=== PATIENT | female | born 1940 | race Caucasian/White ===

== ENCOUNTER 2019-02-01 09:21 | Day surgery (SDC) | payer MEDICARE ==
[2019-01-31 11:29] VITALS: BMI 35.2
[2019-02-01 09:55] VITALS: BP 185/86; PULSE 77; RESP 18; TEMP 97.9
== END 2019-02-01 10:24 | disposition home or self-care (01) ==
LOC: CATHCVL 09:21
PROVIDERS: ATTEND Internal Medicine Infectious Disease
DX: L03.116 Cellulitis of left lower limb (principal); L03.115 Cellulitis of right lower limb; E11.22 Type 2 diabetes mellitus with diabetic chronic kidney disease; I12.9 Hypertensive chronic kidney disease with stage 1 through stage 4 chronic kidney disease, or unspecified chronic kidney disease; N18.9 Chronic kidney disease, unspecified; D63.1 Anemia in chronic kidney disease; E78.5 Hyperlipidemia, unspecified; M19.90 Unspecified osteoarthritis, unspecified site; Z82.49 Family history of ischemic heart disease and other diseases of the circulatory system; Z80.9 Family history of malignant neoplasm, unspecified; Z79.84 Long term (current) use of oral hypoglycemic drugs; Z79.82 Long term (current) use of aspirin; Z79.899 Other long term (current) drug therapy; Z88.0 Allergy status to penicillin; Z91.040 Latex allergy status
CPT/HCPCS: 36410; 76937; C1751

== ENCOUNTER 2021-08-27 20:14 | Emergency (ER) | payer MEDICARE ==
[2021-08-27 20:22] VITALS: TEMP 98.1
[2021-08-27] MEDS ORDERED: FUROSEMIDE 10 MG/ML 4 ML VIAL IV STA (20:27)
--- NOTE | 2021-08-27 20:30 | ED ---
Extremity Problem HPI - General Chief complaint: Extremity Problem,Nontraumatic Stated complaint: Cellulitis Time Seen by Provider: 08/27/21 20:16 Source: EMS, RN notes reviewed Mode of arrival: EMS - History of Present Illness Initial comments: This is a pleasant 81-year-old female with a history of chronic edema to both lower extremities, also has a history of hypertension, hyperlipidemia, and diabetes mellitus type 2. Patient was sent in for cellulitis of both lower legs by her home nurse. She states she has in her succumbs and change his dressings. They were concerned that the left leg had increased drainage. Patient states she feels well otherwise. Patient previously has seen Dr. Choe for vascular surgical evaluation was told that her blood vessels are good. Patient denying any fever or chills. No chest pain or shortness of breath. No abdominal pain. No nausea or vomiting. No change in bowel movements or urination. No other skin rashes or lesions. - Related Data Home Medications Medication Instructions Recorded Confirmed Aspirin [Adult Low Dose Aspirin EC] 81 mg PO DAILY 01/31/19 08/27/21 Glimepiride [Amaryl] 1 mg PO DAILY 01/31/19 08/27/21 Torsemide [Demadex] 40 mg PO DAILY 01/31/19 08/27/21 amLODIPine [Norvasc] 5 mg PO DAILY 01/31/19 08/27/21 hydrALAZINE HCL [Apresoline] 25 mg PO TID 01/31/19 08/27/21 Atorvastatin [Lipitor] 20 mg PO HS 08/27/21 08/27/21 Multivitamins, Thera [Multivitamin 1 tab PO DAILY 08/27/21 08/27/21 (formulary)] polyethylene glycoL 3350 [Miralax] 17 gm PO DAILY PRN 08/27/21 08/27/21 Previous Rx's Medication Instructions Recorded Cephalexin [Keflex] 500 mg PO Q6HR #40 cap 08/28/21 Allergies Allergy/AdvReac Type Severity Reaction Status Date / Time latex Allergy Rash/red Verified 08/27/21 22:24 skin Penicillins Allergy Rash/Hives Verified 08/27/21 22:24 Review of Systems ROS Statement: Those systems with pertinent positive or pertinent negative responses have been documented in the HPI. ROS Other: All systems not noted in ROS Statement are negative. 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 Date of last positivie culture/infection: 2013 MDRO Source:: left leg Past Surgical History: Appendectomy, Section, Cholecystectomy, Heart Catheterization, Hysterectomy Additional Past Surgical History / Comment(s): pericardial window, surgery mir eyes for glaucoma Past Anesthesia/Blood Transfusion Reactions: Blood Transfusion Reaction Additional Past Anesthesia/Blood Transfusion Reaction / Comment(s): reaction to blood transfusion 25-30 yrs ago-"I got red and they pulled it out" Past Psychological History: No Psychological Hx Reported Smoking Status: Former smoker Past Alcohol Use History: None Reported Past Drug Use History: None Reported - Past Family History Father Family Medical History: Cancer Brother(s) Family Medical History: Cancer General Exam - General Exam Comments Initial Comments: Elderly female in no acute distress. Patient does not appear to be ill or toxic. General appearance: alert, in no apparent distress Head exam: Present: atraumatic, normocephalic, normal inspection Eye exam: Present: normal appearance, PERRL, EOMI. Absent: scleral icterus, conjunctival injection, periorbital swelling ENT exam: Present: normal exam, mucous membranes moist Neck exam: Present: normal inspection. Absent: tenderness, meningismus, ly mphadenopathy Respiratory exam: Present: normal lung sounds bilaterally. Absent: respiratory distress, wheezes, rales, rhonchi, stridor Cardiovascular Exam: Present: regular rate, normal rhythm, normal heart sounds. Absent: systolic murmur, diastolic murmur, rubs, gallop, clicks GI/Abdominal exam: Present: soft, normal bowel sounds. Absent: distended, tenderness, guarding, rebound, rigid Extremities exam: Present: full ROM, normal capillary refill, pedal edema, other (Patient has chronic appearing hypertrophic, mildly erythematous skin changes to both lower extremities which appears to be chronic in nature. Patient does have serous weeping from the left lower leg. No definitive acute cellulitis although the patient does have some erythema. ). Absent: normal inspection (Pulses are intact. Sensation intact. Evidence of venous stasis ulceration medial malleoli.), tenderness, joint swelling, calf tenderness Back exam: Present: normal inspection Neurological exam: Present: alert, oriented X3, CN II-XII intact Psychiatric exam: Present: normal affect, normal mood Skin exam: Present: warm, dry, intact, normal color. Absent: rash Course Vital Signs 08/27/21 08/27/21 08/27/21 20:16 21:26 22:58 Temperature 98.1 F Pulse Rate 80 71 79 Respiratory 18 16 18 Rate Blood Pressure 136/77 125/70 136/76 O2 Sat by Pulse 100 95 100 Oximetry 08/27/21 23:57 Temperature Pulse Rate 76 Respiratory 18 Rate Blood Pressure 137/77 O2 Sat by Pulse 96 Oximetry Medical Decision Making - Medical Decision Making Patient presents with chronic-appearing wounds and skin changes to both her studies. Consistent with venous stasis dermatitis. Patient had some more weeping from the left lower leg. Venous Doppler showed no evidence of DVT. Patient's laboratory workup was essentially normal. I believe the patient psychologically mostly related to venous stasis dermatitis. We'll cover with cephalexin and have patient follow-up on Monday. Leg elevation, continue with daily dressings. Return to follow-up with discussed in detail. Patient knows to return here if any symptoms worsen and problems arise. Findings discussed, all questions answered. Wound was cultured. - Lab Data Result diagrams: 08/27/21 21:15 08/27/21 21:15 Lab Results 08/27/21 08/27/21 08/27/21 Range/Units 21:15 21:15 21:15 WBC 7.1 (3.8-10.6) k/uL RBC 4.55 (3.80-5.40) m/uL Hgb 13.1 (11.4-16.0) gm/dL Hct 42.4 (34.0-46.0) % MCV 93.3 (80.0-100.0) fL MCH 28.8 (25.0-35.0) pg MCHC 30.9 L (31.0-37.0) g/dL RDW 16.1 H (11.5-15.5) % Plt Count 240 (150-450) k/uL MPV 7.6 Neutrophils % 64 % Lymphocytes % 18 % Monocytes % 8 % Eosinophils % 7 % Basophils % 1 % Neutrophils # 4.5 (1.3-7.7) k/uL Lymphocytes # 1.3 (1.0-4.8) k/uL Monocytes # 0.6 (0-1.0) k/uL Eosinophils # 0.5 (0-0.7) k/uL Basophils # 0.0 (0-0.2) k/uL Hypochromasia Slight Anisocytosis Slight Sodium 141 (137-145) mmol/L Potassium 4.9 (3.5-5.1) mmol/L Chloride 105 (98-107) mmol/L Carbon Dioxide 28 (22-30) mmol/L Anion Gap 8 mmol/L BUN 46 H (7-17) mg/dL Creatinine 1.54 H (0.52-1.04) mg/dL Est GFR (CKD-EPI)AfAm 36 (>60 ml/min/1.73 sqM) Est GFR (CKD-EPI)NonAf 31 (>60 ml/min/1.73 sqM) Glucose 93 (74-99) mg/dL POC Glucose (mg/dL) (75-99) mg/dL POC Glu Shoe Salesperson ID Calcium 8.7 (8.4-10.2) mg/dL Total Bilirubin 0.4 (0.2-1.3) mg/dL AST 23 (14-36) U/L ALT 14 (4-34) U/L Alkaline Phosphatase 146 H (38-126) U/L Troponin I <0.012 (0.000-0.034) ng/mL NT-Pro-B Natriuret Pep pg/mL Total Protein 7.5 (6.3-8.2) g/dL Albumin 3.9 (3.5-5.0) g/dL 08/27/21 08/27/21 Range/Units 21:15 22:35 WBC (3.8-10.6) k/uL RBC (3.80-5.40) m/uL Hgb (11.4-16.0) gm/dL Hct (34.0-46.0) % MCV (80.0-100.0) fL MCH (25.0-35.0) pg MCHC (31.0-37.0) g/dL RDW (11.5-15.5) % Plt Count (150-450) k/uL MPV Neutrophils % % Lymphocytes % % Monocytes % % Eosinophils % % Basophils % % Neutrophils # (1.3-7.7) k/uL Lymphocytes # (1.0-4.8) k/uL Monocytes # (0-1.0) k/uL Eosinophils # (0-0.7) k/uL Basophils # (0-0.2) k/uL Hypochromasia Anisocytosis Sodium (137-145) mmol/L Potassium (3.5-5.1) mmol/L Chloride (98-107) mmol/L Carbon Dioxide (22-30) mmol/L Anion Gap mmol/L BUN (7-17) mg/dL Creatinine (0.52-1.04) mg/dL Est GFR (CKD-EPI)AfAm (>60 ml/min/1.73 sqM) Est GFR (CKD-EPI)NonAf (>60 ml/min/1.73 sqM) Glucose (74-99) mg/dL POC Glucose (mg/dL) 85 (75-99) mg/dL POC Glu Shoe Salesperson ID Kimani Martinez Calcium (8.4-10.2) mg/dL Total Bilirubin (0.2-1.3) mg/dL AST (14-36) U/L ALT (4-34) U/L Alkaline Phosphatase (38-126) U/L Troponin I (0.000-0.034) ng/mL NT-Pro-B Natriuret Pep 601 pg/mL Total Protein (6.3-8.2) g/dL Albumin (3.5-5.0) g/dL - Radiology Data Radiology results: report reviewed, image reviewed No evidence of acute changes on imaging Disposition Clinical Impression: Venous stasis dermatitis, Cellulitis, leg Disposition: HOME SELF-CARE Condition: Stable Additional Instructions: Elevate the legs as much as possible. Continue wound care with your in-home nurse. To follow-up with the retirement administrator as well. Follow-up with your regular doctor, call first thing Monday morning. Take antibiotics as directed. Follow-up with your regular physician as directed. Return to the ER immediately if any symptoms worsen, new symptoms arise, or any other problems develop. Prescriptions: Cephalexin [Keflex] 500 mg PO Q6HR #40 cap Is patient prescribed a controlled substance at d/c from ED?: No Referrals: Alexx Olmstead MD [Primary Care Provider] - 08/30/21 Time of Disposition: 00:07
--- NOTE | 2021-08-27 21:31 | XR ---
EXAMINATION TYPE: XR chest 1V DATE OF EXAM: 08/27/2021 COMPARISON: NONE HISTORY: Edema TECHNIQUE: Single view FINDINGS: There is no heart failure nor confluent pneumonic infiltrate. Costophrenic angles are clear . There are no hilar masses. IMPRESSION: No active cardiopulmonary disease. Normal heart.
[2021-08-27 22:08] LABS: Anisocytosis Slight; Basophils % (A) 1 %; Eosinophils # (A) 0.5 k/uL (0-0.7); Eosinophils % (A) 7 %; HCT 42.4 % (34.0-46.0); HGB 13.1 gm/dL (11.4-16.0); Hypochromasia Slight; Lymphocytes # (A) 1.3 k/uL (1.0-4.8); Lymphocytes % (A) 18 %; MCH 28.8 pg (25.0-35.0); MCHC 30.9 g/dL (31.0-37.0); MCV 93.3 fL (80.0-100.0); Mean Platelet Volume 7.6; Monocytes # (A) 0.6 k/uL (0-1.0); Monocytes % (A) 8 %; Neutrophils # (A) 4.5 k/uL (1.3-7.7); Neutrophils % (A) 64 %; Platelet Count 240 k/uL (150-450); RBC 4.55 m/uL (3.80-5.40); RDW 16.1 % (11.5-15.5); WBC 7.1 k/uL (3.8-10.6)
[2021-08-27 22:19] LABS: Albumin 3.9 g/dL (3.5-5.0); Calcium 8.7 mg/dL (8.4-10.2); Potassium 4.9 mmol/L (3.5-5.1); Total Bilirubin 0.4 mg/dL (0.2-1.3); Total Protein 7.5 g/dL (6.3-8.2)
[2021-08-27 22:37] LABS: Glucose,Whole Blood 85 mg/dL (75-99)
[2021-08-27 22:59] VITALS: RESP 18
--- NOTE | 2021-08-27 23:33 | US ---
EXAMINATION TYPE: US venous doppler duplex LE DATE OF EXAM: 08/27/2021 10:20 PM COMPARISON: NONE CLINICAL HISTORY: Bilateral leg edema. Swelling, redness SIDE PERFORMED: Bilateral TECHNIQUE: The lower extremity deep venous system is examined utilizing real time linear array sonog aaron with graded compression, doppler sonography and color-flow sonography. VESSELS IMAGED: Common Femoral Vein Deep Femoral Vein Greater Saphenous Vein * Femoral Vein Popliteal Vein Small Saphenous Vein * Proximal Calf Veins (* superficial vessels) Right Leg: Negative for DVT, unable to visualize groin vessels due to morbidly obese pt Left Leg: Negative for DVT, unable to visualize groin vessels due to morbidly obese pt IMPRESSION: Limited exam shows no evidence of deep vein thrombosis in both legs.
[2021-08-28 00:34] VITALS: BP 141/77; PULSE 88
== END 2021-08-28 01:06 | disposition home or self-care (01) ==
LOC: EC 20:14
DX: L03.115 Cellulitis of right lower limb (principal); L03.116 Cellulitis of left lower limb; I87.2 Venous insufficiency (chronic) (peripheral); E11.9 Type 2 diabetes mellitus without complications; E78.5 Hyperlipidemia, unspecified; I10 Essential (primary) hypertension; Z79.82 Long term (current) use of aspirin; Z91.040 Latex allergy status; Z88.0 Allergy status to penicillin; Z90.49 Acquired absence of other specified parts of digestive tract; Z90.710 Acquired absence of both cervix and uterus; Z87.891 Personal history of nicotine dependence
CPT/HCPCS: 99284; 96365; 96375; 36415; 83880; 80053; 84484; 85025; 87070; 87205; 87075; 87077; 87186; 71045; 93970; J1940; J0690

== ENCOUNTER 2023-03-20 19:20 | Inpatient (IN) | payer MEDICARE ==
[2023-03-20] MEDS ORDERED: SODIUM CHLORIDE 0.9% 1,000 ML IV STA (19:47)
[2023-03-20] MEDS ORDERED: MORPHINE SULFATE 4 MG/ML SYRINGE IV STA (19:47)
--- NOTE | 2023-03-20 19:48 | ED ---
Recheck HPI - General Chief Complaint: Recheck/Abnormal Lab/Rx Stated Complaint: L leg swollen, Chest Pain Time Seen by Provider: 03/20/23 19:32 Source: patient, RN notes reviewed, old records reviewed Mode of arrival: ambulatory Limitations: no limitations - History of Present Illness Initial Comments: This is a 82-year-old female DF for evaluation today. Patient coming in for not feeling well weakness stability fatigue. Severe left lower Shorty pain and swelling. She complaining of increased lower Shorty swelling and edema pain as well as elevated blood sugar. Patient states she does not feel well and she is not getting any better despite prolonged recent hospitalization. Otherwise no fevers no chest pain no shortness of breath no recent change in medications. MD Complaint: other (Severe lower extremity edema and swelling) -: days(s) Returns Today for: persistent/worsening pain related to initial visit Symptoms Since Prior Visit: worsening pain Associated Symptoms: none Treatments Prior to Arrival: Given Pain Meds on - Related Data Home Medications Medication Instructions Recorded Confirmed Aspirin [Adult Low Dose Aspirin EC] 81 mg PO DAILY 01/31/19 03/20/23 Torsemide [Demadex] 20 mg PO BID 01/31/19 03/20/23 Atorvastatin [Lipitor] 20 mg PO HS 08/27/21 03/20/23 Docusate Sodium 250 mg PO DAILY 03/20/23 03/20/23 Empagliflozin [Jardiance] 10 mg PO DAILY 03/20/23 03/20/23 Metoprolol Succinate (ER) [Toprol 25 mg PO DAILY 03/20/23 03/20/23 XL] Potassium Chloride ER [K-Dur 20] 20 meq PO BID 03/20/23 03/20/23 Spironolactone [Aldactone] 12.5 mg PO DAILY 03/20/23 03/20/23 Previous Rx's Medication Instructions Recorded Apixaban [Eliquis Starter Pack 5 - 10 mg PO DIRECTED 30 Days 03/21/23 (for VTE)] #1 each Allergies Allergy/AdvReac Type Severity Reaction Status Date / Time cefepime Allergy Anaphylaxis Verified 03/20/23 22:51 latex Allergy Rash/red Verified 03/20/23 22:51 skin Penicillins Allergy Rash/Hives Verified 03/20/23 22:51 Review of Systems ROS Statement: Those systems with pertinent positive or pertinent negative responses have been documented in the HPI. ROS Other: All systems not noted in ROS Statement are negative. 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, VRE Date of last positivie culture/infection: 08/27/21-VRE; 2013-MRSA MDRO Source:: Left Leg-VRE; left leg-MRSA Past Surgical History: Appendectomy, Section, Cholecystectomy, Heart Catheterization, Hysterectomy Additional Past Surgical History / Comment(s): pericardial window, surgery mir eyes for glaucoma, cyst removal on abdomen Past Anesthesia/Blood Transfusion Reactions: Blood Transfusion Reaction Additional Past Anesthesia/Blood Transfusion Reaction / Comment(s): reaction to blood transfusion 25-30 yrs ago-"I got red and they pulled it out" Past Psychological History: No Psychological Hx Reported Smoking Status: Former smoker Past Alcohol Use History: None Reported Past Drug Use History: None Reported - Past Family History Father Family Medical History: Cancer Brother(s) Family Medical History: Cancer General Exam Limitations: no limitations General appearance: alert, in no apparent distress Head exam: Present: atraumatic, normocephalic, normal inspection Eye exam: Present: normal appearance, PERRL, EOMI. Absent: scleral icterus, conjunctival injection, periorbital swelling ENT exam: Present: normal exam, mucous membranes moist Neck exam: Present: normal inspection. Absent: tenderness, meningismus, lymphadenopathy Respiratory exam: Present: normal lung sounds bilaterally. Absent: respiratory distress, wheezes, rales, rhonchi, stridor Cardiovascular Exam: Present: regular rate, normal rhythm, normal heart sounds. Absent: systolic murmur, diastolic murmur, rubs, gallop, clicks GI/Abdominal exam: Present: soft, normal bowel sounds. Absent: distended, tenderness, guarding, rebound, rigid Extremities exam: Present: normal inspection, full ROM, normal capillary refill. Absent: tenderness, pedal edema, joint swelling, calf tenderness Back exam: Present: normal inspection Neurological exam: Present: alert, oriented X3, CN II-XII intact Psychiatric exam: Present: normal affect, normal mood Skin exam: Present: warm, dry, intact, normal color. Absent: rash Course Vital Signs 03/20/23 03/20/23 03/20/23 19:29 20:24 21:00 Temperature 98.1 F Pulse Rate 68 62 Respiratory 18 18 Rate Blood Pressure 151/117 144/58 147/72 O2 Sat by Pulse 98 96 94 L Oximetry 03/20/23 03/20/23 03/21/23 22:00 23:00 00:00 Temperature Pulse Rate 62 66 64 Respiratory 16 18 Rate Blood Pressure 157/61 128/55 123/52 O2 Sat by Pulse 95 93 L Oximetry 03/21/23 03/21/23 03/21/23 00:17 01:00 02:00 Temperature Pulse Rate 62 62 58 L Respiratory 18 Rate Blood Pressure 129/53 123/55 130/54 O2 Sat by Pulse 95 93 L 95 Oximetry 03/21/23 03/21/23 03/21/23 08:24 10:30 14:22 Temperature Pulse Rate 66 71 82 Respiratory 18 20 18 Rate Blood Pressure 123/55 147/70 137/64 O2 Sat by Pulse 97 96 99 Oximetry 03/21/23 03/21/23 15:44 18:04 Temperature 97.9 F 98.0 F Pulse Rate 80 68 Respiratory 18 20 Rate Blood Pressure 151/87 148/70 O2 Sat by Pulse 95 97 Oximetry - Reevaluation(s) Reevaluation #1: 03/21/23 00:24 Medical records reviewed Reevaluation #2: 03/21/23 00:24 Patient's symptoms improving Reevaluation #3: 03/21/23 00:24 Patient informed results questions answered Reevaluation #4: 03/21/23 00:24 Was pt. sent in by a medical professional or institution (, PA, HOSPITAL CODER, urgent care, hospital, or [facility]...) When possible be specific @ -no Did you speak to anyone other than the patient for history (EMS, parent, family, police, friend...)? What history was obtained from this source @ -no Did you review nursing and triage notes (agree or disagree)? Why? @ -agree Are old charts reviewed (outside hosp., previous admission, EMS record, old EKG, old radiological studies, urgent care reports/EKG's, [facility] records)? Report findings @ -yes Differential Diagnosis (chest pain, altered mental status, abdominal pain women, abdominal pain men, vaginal bleeding, weakness, fever, dyspnea, syncope, headache, dizziness, GI bleed, back pain, seizure, CVA, palpatations, mental health, musculoskeletal)? @ -prior EKG interpreted by me (3pts min.). @ -yes X-rays interpreted by me (1pt min.). @ -yes CT interpreted by me (1pt min.). @ -no U/S interpreted by me (1pt. min.). @ -yes What testing was considered but not performed or refused? (CT, X-rays, U/S, labs)? Why? @ -none What meds were considered but not given or refused? Why? @ -none Did you discuss the management of the patient with other professionals (professionals i.e. , PA, HOSPITAL CODER, lab, RT, psych nurse, social media sr strategy manager, search strategist, teacher, science and operations officer, case management manager)? Give summary @ -no Was smoking cessation discussed for >3mins.? @ -no Was critical care preformed (if so, how long)? @ -no Were there social determinants of health that impacted care today? How? (H omelessness, low income, unemployed, alcoholism, drug addiction, transportation, low edu. Level, literacy, decrease access to med. care, [facility], rehab)? @ -none Was there de-escalation of care discussed even if they declined (Discuss DNR or withdrawal of care, Hospice)? DNR status @ -no What co-morbidities impacted this encounter? (DM, HTN, Smoking, COPD, CAD, Cancer, CVA, ARF, Chemo, Hep., AIDS, mental health diagnosis, sleep apnea, morbid obesity)? @ -none Was patient admitted / discharged? Hospital course, mention meds given and route, prescriptions, significant lab abnormalities, going to OR and other pertinent info. @ - 82 female to the emergency department today for evaluation. Patient does have significant DVT left lower extremity, further testing tomorrow for possibility of PE will admit for symptom control pain management and heparinization Admitted Undiagnosed new problem with uncertain prognosis? @ -no Drug Therapy requiring intensive monitoring for toxicity (Heparin, Nitro, Insulin, Cardizem)? @ -no Were any procedures done? @ -no Diagnosis/symptom? @ -DVT Acute, or Chronic, or Acute on Chronic? @ -Acute Uncomplicated (without systemic symptoms) or Complicated (systemic symptoms)? @ -Complicated Side effects of treatment? @ -no Exacerbation, Progression, or Severe Exacerbation? @ -exacerbation Poses a threat to life or bodily function? How? (Chest pain, [place], CA, pneumonia, PE, COPD, DKA, ARF, appy, cholecystitis, CVA, Diverticulitis, Homicidal, Suicidal, threat to staff... and all critical care pts) @ -yes with DVT covering to PE - Consultations Consultation #1: Spoke with [facility] who agreed to admit this patient Medical Decision Making - Medical Decision Making 82 female to the emergency department today for evaluation. Patient does have significant DVT left lower extremity, further testing tomorrow for possibility of PE will admit for symptom control pain management and heparinization - Lab Data Result diagrams: 03/22/23 05:52 03/23/23 07:04 Lab Results 03/20/23 03/20/23 03/20/23 Range/Units 19:58 19:58 19:58 WBC 10.2 (3.8-10.6) k/uL RBC 4.61 (3.80-5.40) m/uL Hgb 13.0 (11.4-16.0) gm/dL Hct 41.5 (34.0-46.0) % MCV 89.9 (80.0-100.0) fL MCH 28.3 (25.0-35.0) pg MCHC 31.5 (31.0-37.0) g/dL RDW 16.2 H (11.5-15.5) % Plt Count 206 (150-450) k/uL MPV 7.6 Neutrophils % 76 % Lymphocytes % 11 % Monocytes % 7 % Eosinophils % 4 % Basophils % 1 % Neutrophils # 7.8 H (1.3-7.7) k/uL Lymphocytes # 1.2 (1.0-4.8) k/uL Monocytes # 0.7 (0-1.0) k/uL Eosinophils # 0.4 (0-0.7) k/uL Basophils # 0.1 (0-0.2) k/uL Hypochromasia Slight Anisocytosis Slight PT 10.9 (9.0-12.0) sec INR 1.0 (<1.2) APTT 23.4 (22.0-30.0) sec D-Dimer 11.94 H (<0.60) mg/L FEU Sodium 137 (137-145) mmol/L Potassium 4.6 (3.5-5.1) mmol/L Chloride 101 (98-107) mmol/L Carbon Dioxide 27 (22-30) mmol/L Anion Gap 9 mmol/L BUN 45 H (7-17) mg/dL Creatinine 2.01 H (0.52-1.04) mg/dL Est GFR (CKD-EPI)AfAm 26 (>60 ml/min/1.73 sqM) Est GFR (CKD-EPI)NonAf 22 (>60 ml/min/1.73 sqM) Glucose 245 H (74-99) mg/dL Plasma Lactic Acid Karlo (0.7-2.0) mmol/L Calcium 8.0 L (8.4-10.2) mg/dL Phosphorus 4.5 (2.5-4.5) mg/dL Magnesium 2.8 H (1.6-2.3) mg/dL Total Bilirubin 0.5 (0.2-1.3) mg/dL AST 21 (14-36) U/L ALT 15 (4-34) U/L Alkaline Phosphatase 120 (38-126) U/L Troponin I (0.000-0.034) ng/mL NT-Pro-B Natriuret Pep 1100 pg/mL Total Protein 7.3 (6.3-8.2) g/dL Albumin 3.5 (3.5-5.0) g/dL 03/20/23 03/20/23 Range/Units 19:58 19:58 WBC (3.8-10.6) k/uL RBC (3.80-5.40) m/uL Hgb (11.4-16.0) gm/dL Hct (34.0-46.0) % MCV (80.0-100.0) fL MCH (25.0-35.0) pg MCHC (31.0-37.0) g/dL RDW (11.5-15.5) % Plt Count (150-450) k/uL MPV Neutrophils % % Lymphocytes % % Monocytes % % Eosinophils % % Basophils % % Neutrophils # (1.3-7.7) k/uL Lymphocytes # (1.0-4.8) k/uL Monocytes # (0-1.0) k/uL Eosinophils # (0-0.7) k/uL Basophils # (0-0.2) k/uL Hypochromasia Anisocytosis PT (9.0-12.0) sec INR (<1.2) APTT (22.0-30.0) sec D-Dimer (<0.60) mg/L FEU Sodium (137-145) mmol/L Potassium (3.5-5.1) mmol/L Chloride (98-107) mmol/L Carbon Dioxide (22-30) mmol/L Anion Gap mmol/L BUN (7-17) mg/dL Creatinine (0.52-1.04) mg/dL Est GFR (CKD-EPI)AfAm (>60 ml/min/1.73 sqM) Est GFR (CKD-EPI)NonAf (>60 ml/min/1.73 sqM) Glucose (74-99) mg/dL Plasma Lactic Acid Karlo 1.1 (0.7-2.0) mmol/L Calcium (8.4-10.2) mg/dL Phosphorus (2.5-4.5) mg/dL Magnesium (1.6-2.3) mg/dL Total Bilirubin (0.2-1.3) mg/dL AST (14-36) U/L ALT (4-34) U/L Alkaline Phosphatase (38-126) U/L Troponin I <0.012 (0.000-0.034) ng/mL NT-Pro-B Natriuret Pep pg/mL Total Protein (6.3-8.2) g/dL Albumin (3.5-5.0) g/dL - EKG Data -: EKG Interpreted by Me (EKG is sinus 61 VA 225 QRS 88 QTc 389) - Radiology Data Radiology results: report reviewed (Chest x-rays negative for acute disease ultrasound positive for DVT), image reviewed Disposition Clinical Impression: Weakness, Back pain, Left leg pain, Left leg DVT, MAYRA (acute kidney injury) Disposition: ADMITTED IP TO THIS [facility] Condition: Fair Is patient prescribed a controlled substance at d/c from ED?: No Time of Disposition: 00:20
[2023-03-20 20:09] LABS: Anisocytosis Slight; Basophils # (A) 0.1 k/uL (0-0.2); Basophils % (A) 1 %; Eosinophils # (A) 0.4 k/uL (0-0.7); Eosinophils % (A) 4 %; HCT 41.5 % (34.0-46.0); Hypochromasia Slight; Lymphocytes # (A) 1.2 k/uL (1.0-4.8); Lymphocytes % (A) 11 %; MCH 28.3 pg (25.0-35.0); MCHC 31.5 g/dL (31.0-37.0); MCV 89.9 fL (80.0-100.0); Mean Platelet Volume 7.6; Monocytes # (A) 0.7 k/uL (0-1.0); Monocytes % (A) 7 %; Neutrophils # (A) 7.8 k/uL (1.3-7.7); Neutrophils % (A) 76 %; Platelet Count 206 k/uL (150-450); RBC 4.61 m/uL (3.80-5.40); RDW 16.2 % (11.5-15.5); WBC 10.2 k/uL (3.8-10.6)
--- NOTE | 2023-03-20 20:15 | XR ---
EXAMINATION TYPE: XR chest 1V portable DATE OF EXAM: 03/20/2023 8:10 PM COMPARISON: Chest radiographs from 08/27/2021 TECHNIQUE: XR chest 1V portable Portable AP radiograph of the chest. CLINICAL INDICATION:Female, 82 years old with history of pain; FINDINGS: Lungs/Pleura: There is no evidence of pleural effusion, focal consolidation, or pneumothorax. Elevati on of the right hemidiaphragm. Pulmonary vascularity: Unremarkable. Heart/mediastinum: Cardiomediastinal silhouette is enlarged and stable. Musculoskeletal: No acute osseous pathology. Degenerative changes of the thoracic spine. IMPRESSION: Chronic changes without acute pulmonary process. No significant change from prior.
[2023-03-20 20:20] LABS: ALT 15 U/L (4-34); AST 21 U/L (14-36); African American GFR (CKD) 26 (>60 ml/min/1.73 sqM); Albumin 3.5 g/dL (3.5-5.0); Alkaline Phosphatase 120 U/L (38-126); Anion Gap 9 mmol/L; Blood Urea Nitrogen 45 mg/dL (7-17); Carbon Dioxide 27 mmol/L (22-30); Chloride 101 mmol/L (98-107); Glucose 245 mg/dL (74-99); Magnesium 2.8 mg/dL (1.6-2.3); Non-African American GFR(CKD) 22 (>60 ml/min/1.73 sqM); Phosphorus 4.5 mg/dL (2.5-4.5); Potassium 4.6 mmol/L (3.5-5.1); Sodium 137 mmol/L (137-145); Total Bilirubin 0.5 mg/dL (0.2-1.3); Total Protein 7.3 g/dL (6.3-8.2)
[2023-03-20 20:29] LABS: NT-Pro-B-Type Natriuretic Pept 1100 pg/mL
[2023-03-20 20:31] LABS: Partial Thromboplastin Time 23.4 sec (22.0-30.0); Prothrombin Time 10.9 sec (9.0-12.0)
--- NOTE | 2023-03-20 23:21 | US ---
EXAM: US Duplex Bilateral Lower Extremities Veins CLINICAL HISTORY: ITS.REASON US Reason: dvt TECHNIQUE: Real-time duplex ultrasound scan of the bilateral lower extremity veins integrating B-mode two-dimensional vascular structure, Doppler spectral analysis, color flow Doppler imaging and compression. COMPARISON: No relevant prior studies available. FINDINGS: Right deep veins: Unremarkable. No DVT in the right common femoral, femoral, proximal deep femoral or popliteal veins. The veins demonstrate normal color flow, are normally compressible, with normal phasic flow and/or augmentation response. Right superficial veins: Unremarkable. No thrombus in the visualized right great saphenous vein. Left deep veins: Positive for DVT in the left greater saphenous vein. Positive for DVT in the left common femoral vein. Left superficial veins: Positive for DVT in the left greater saphenous vein. Soft tissues: No acute findings. No popliteal cyst. IMPRESSION: Positive for DVT in the left common femoral vein. Positive for superficial thrombus in the left greater saphenous vein. No DVT in the right lower extremity.
[2023-03-21] MEDS ORDERED: ONDANSETRON 4 MG/2 ML VIAL IVP PRN (00:18)
[2023-03-21] MEDS ORDERED: HYDROmorphone 1 MG/ML 1 ML SYRINGE IVP PRN (00:18)
[2023-03-21] MEDS ORDERED: HEPARIN SODIUM 1,000 UN/ML (10ML VL) IV ONE (00:18)
[2023-03-21] MEDS ORDERED: NALOXONE 0.4 MG/ML 1 ML VIAL IV PRN (00:18)
[2023-03-21] MEDS ORDERED: HEPARIN SODIUM 1,000 UN/ML (10ML VL) IV PRN (00:18)
[2023-03-21] MEDS: HEPARIN SOD,PORK IN 0.45% NACL 25,000 UNIT in 0.45% NACL 1 250ML.BAG IV SCH ×2 (00:44→15:21)
[2023-03-21] MEDS: SODIUM CHLORIDE 0.9% 1,000 ML IV SCH ×2 (00:50→14:21)
--- NOTE | 2023-03-21 10:27 | NM ---
EXAMINATION TYPE: NM pul vent and perfuse DATE OF EXAM: 03/21/2023 CLINICAL INDICATION: Female, 82 years old with history of PE; COMPARISONS: Radiograph 03/20/2023 TECHNIQUE: Utilizing inhalation of 64.5 mCi Tc 99m DTPA aerosol and intravenous injection of 5 mCi o f Tc 99m MAA, ventilation and perfusion images are acquired post injection in multiple projections. FINDINGS: Normal radiotracer distribution is noted in the lungs. There is no evidence of mismatched defects. IMPRESSION: No evidence for pulmonary embolus
--- NOTE | 2023-03-21 11:35 | CA ---
Transthoracic Echo Report Name: Eden Lyons Age: 82 Gender: F : 1940 Exam Date: 03/21/2023 08:26 Exam Location: [facility] Ht (in): 67 Wt (lb): 207 Ordering Physician: Ramon Castro DO Attending/Referring Phys: Professor Of Theology Britni Slaughter [facility] Procedure CPT: Indications: PE Cardiac Hx: Technical Quality: Fair Contrast 1: Total Dose (mL): Contrast 2: Total Dose (mL): MEASUREMENTS (Male / Female) Normal Values 2D ECHO LV Diastolic Diameter PLAX 4.1 cm 4.2 - 5.9 / 3.9 - 5.3 cm LV Systolic Diameter PLAX 2.6 cm IVS Diastolic Thickness 1.1 cm 0.6 - 1.0 / 0.6 - 0.9 cm LVPW Diastolic Thickness 1.1 cm 0.6 - 1.0 / 0.6 - 0.9 cm LV Relative Wall Thickness 0.5 LVOT Diameter 2.0 cm Ascending Aorta Diameter 3.4 cm M-MODE Aortic Root Diameter MM 2.7 cm LA Systolic Diameter MM 4.0 cm LA Ao Ratio MM 1.5 AV Cusp Separation MM 1.0 cm DOPPLER AV Peak Velocity 223.4 cm/s AV Peak Gradient 20.0 mmHg AV Mean Velocity 176.6 cm/s AV Mean Gradient 13.2 mmHg AV Velocity Time Integral 53.8 cm LVOT Peak Velocity 111.3 cm/s LVOT Peak Gradient 5.0 mmHg LVOT Velocity Time Integral 32.4 cm LVOT Stroke Volume 106.7 cm??? LVOT Stroke Volume Index 52.0 ml/m??? LVOT Cardiac Index 3142.4 cm???/min???m??? AV Area Cont Eq vti 2.0 cm??? AV Area Cont Eq pk 1.6 cm??? Mitral E Point Velocity 71.2 cm/s Mitral A Point Velocity 111.2 cm/s Mitral E to A Ratio 0.6 MV Deceleration Time 311.8 ms LV E' Lateral Velocity 5.9 cm/s Mitral E to LV E' Lateral Ratio 12.1 LV E' Septal Velocity 4.3 cm/s Mitral E to LV E' Septal Ratio 16.5 TR Peak Velocity 271.6 cm/s TR Peak Gradient 29.5 mmHg Right Atrial Pressure 8.0 mmHg Pulmonary Artery Systolic Pressu 37.5 mmHg Right Ventricular Systolic Press 37.5 mmHg FINDINGS Left Ventricle Mildly increased left ventricular wall thickness. Mild concentric left ventricular hypertrophy. Left ventricular cavity size normal. No obvious regional wall motion abnormalities. Left ventricular ejection fraction is estimated at 60-65%. Right Ventricle Normal right ventricular size and function. Mild pulmonary hypertension. Right Atrium Normal right atrial size. Left Atrium Normal left atrial size. Mitral Valve Mitral valve thickened. Moderate thickening/calcification of the posterior mitral valve leaflet. Trace mitral regurgitation. Aortic Valve Trileaflet aortic valve. Diffuse thickening of the aortic valve cusps with reduced excursion. Aortic valve sclerosis. No aortic regurgitation. Tricuspid Valve Structurally normal tricuspid valve. Mild tricuspid regurgitation. Pulmonic Valve Structurally normal pulmonic valve. No pulmonic regurgitation. Pericardium No pericardial effusion. Aorta Normal size aortic root and proximal ascending aorta. CONCLUSIONS Normal LV systolic function Moderate mitral annular calcification Aortic sclerosis without any stenosis Mild tricuspid regurgitation Previewed by: Dr. Rahul Kline MD (Electronically Signed) Final Date: 21 March 2023 11:34
[2023-03-21] MEDS ORDERED: DEXTROSE 50% SYRINGE 50 ML IVP PRN ×2 (12:50)
[2023-03-21 12:57] LABS: Glucose,Whole Blood 102 mg/dL (70-110)
[2023-03-21 13:44] LABS: Anisocytosis Slight; Basophils # (A) 0.1 k/uL (0-0.2); Basophils % (A) 1 %; Eosinophils # (A) 0.4 k/uL (0-0.7); Eosinophils % (A) 5 %; HCT 44.4 % (34.0-46.0); HGB 13.8 gm/dL (11.4-16.0); Hypochromasia Moderate; Lymphocytes # (A) 1.4 k/uL (1.0-4.8); Lymphocytes % (A) 16 %; MCH 28.3 pg (25.0-35.0); MCHC 31.1 g/dL (31.0-37.0); MCV 90.9 fL (80.0-100.0); Mean Platelet Volume 7.7; Monocytes # (A) 0.6 k/uL (0-1.0); Monocytes % (A) 7 %; Neutrophils # (A) 6.1 k/uL (1.3-7.7); Neutrophils % (A) 70 %; Platelet Count 252 k/uL (150-450); RBC 4.89 m/uL (3.80-5.40); RDW 16.1 % (11.5-15.5); WBC 8.7 k/uL (3.8-10.6)
[2023-03-21] MEDS: METOPROLOL SUCCINATE (ER) 25 MG TAB.ER.24H PO SCH (14:17)
[2023-03-21] MEDS: ASPIRIN 81 MG PO SCH (14:17)
[2023-03-21 14:24] LABS: African American GFR (CKD) 35 (>60 ml/min/1.73 sqM); Anion Gap 11 mmol/L; Blood Urea Nitrogen 38 mg/dL (7-17); Calcium 8.2 mg/dL (8.4-10.2); Carbon Dioxide 26 mmol/L (22-30); Chloride 104 mmol/L (98-107); Glucose 95 mg/dL (74-99); Non-African American GFR(CKD) 30 (>60 ml/min/1.73 sqM); Sodium 141 mmol/L (137-145)
[2023-03-21 14:26] LABS: Potassium 4.5 mmol/L (3.5-5.1)
[2023-03-21 17:38] LABS: Glucose,Whole Blood 148 mg/dL (70-110)
[2023-03-21] MEDS: INSULIN ASPART (NovoLOG) 100 UNIT/ML VIAL SQ SCH ×2 (17:57→20:53)
[2023-03-21 20:32] LABS: Glucose,Whole Blood 172 mg/dL (70-110)
[2023-03-21] MEDS: ATORVASTATIN 20 MG TAB PO SCH (20:52)
--- NOTE | 2023-03-22 01:06 | P.HPIM ---
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 According to the note from the family patient has not been able to get out of bed since January 18, 2023 and is also having elevated blood sugars. Patient states that she has not been getting any better despite prolonged recent hospitalization. patient's primary care physician recommended to go to ER. No complaints of fever or chills. No chest pain or shortness of breath. No nausea vomiting or diarrhea. Patient is he is on follow-up with wound care clinic and sees nurse practitioner there. Patient was seen by vascular surgery previously. Chest x-ray showed chronic changes without acute pulmonary process. No significant change from prior. EKG showed sinus rhythm with first-degree AV block. Venous duplex is positive for DVT in the left common femoral vein and positive for superficial thrombus in the left greater saphenous vein. 2D echocardiogram showed normal LV systolic function and moderate mitral annular calcification. VQ scan showed low probability for PE. Laboratory data showed D-dimer 11.9 BUN 45 and creatinine 2.01 and blood sugar is 245 calcium 8.0 magnesium 2.8 and troponin x3 negative proBNP is 1100. Acute left lower extremity DVT. Lower extremity duplex scan showed left common femoral vein DVT and superficial thrombus in the left greater saphenous vein. Hyperglycemia uncontrolled diabetes type 2. [id number] Acute kidney injury with possible underlying CKD stage III Lower extremity bilateral diabetic foot ulcers Hypertension Hyperlipidemia History of VRE and MRSA leg infections Prior history of smoking DVT prophylaxis patient is already heparin drip Plan: Patient will be continued on heparin drip. Gentle IV hydration. Continue with insulin sliding scale for better blood sugar control. Follow-up A1c level. Follow-up renal function. Vascular surgery and ID will be consulted and wound care. Continue to follow closely and PT OT consult. Prognosis is guarded at this time. 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, VRE Date of last positivie culture/infection: 08/27/21-VRE; 2013-MRSA MDRO Source:: Left Leg-VRE; left leg-MRSA Past Surgical History: Appendectomy, Section, Cholecystectomy, Heart Catheterization, Hysterectomy Additional Past Surgical History / Comment(s): pericardial window, surgery mir eyes for glaucoma, cyst removal on abdomen Past Anesthesia/Blood Transfusion Reactions: Blood Transfusion Reaction Additional Past Anesthesia/Blood Transfusion Reaction / Comment(s): reaction to blood transfusion 25-30 yrs ago-"I got red and they pulled it out" Past Psychological History: No Psychological Hx Reported Smoking Status: Former smoker Past Alcohol Use History: None Reported Past Drug Use History: None Reported - Past Family History Father Family Medical History: Cancer Brother(s) Family Medical History: Cancer Medications and Allergies Home Medications Medication Instructions Recorded Confirmed Type Aspirin [Adult Low Dose Aspirin EC] 81 mg PO DAILY 01/31/19 03/20/23 History Torsemide [Demadex] 20 mg PO BID 01/31/19 03/20/23 History Atorvastatin [Lipitor] 20 mg PO HS 08/27/21 03/20/23 History Docusate Sodium 250 mg PO DAILY 03/20/23 03/20/23 History Empagliflozin [Jardiance] 10 mg PO DAILY 03/20/23 03/20/23 History Metoprolol Succinate (ER) [Toprol 25 mg PO DAILY 03/20/23 03/20/23 History Xl] Potassium Chloride ER [K-Dur 20] 20 meq PO BID 03/20/23 03/20/23 History Spironolactone [Aldactone] 12.5 mg PO DAILY 03/20/23 03/20/23 History Apixaban [Eliquis Starter Pack 5 - 10 mg PO DIRECTED 30 Days 03/21/23 Rx (for VTE)] #1 each Allergies Allergy/AdvReac Type Severity Reaction Status Date / Time cefepime Allergy Anaphylaxis Verified 03/20/23 22:51 latex Allergy Rash/red Verified 03/20/23 22:51 skin Penicillins Allergy Rash/Hives Verified 03/20/23 22:51 Physical Exam Vitals: Vital Signs Temp Pulse Resp BP Pulse Ox 03/21/23 14:22 82 18 137/64 99 03/21/23 10:30 71 20 147/70 96 03/21/23 08:24 66 18 123/55 97 03/21/23 02:00 58 L 18 130/54 95 03/21/23 01:00 62 123/55 93 L 03/21/23 00:17 62 129/53 95 03/21/23 00:00 64 18 123/52 93 L 03/20/23 23:00 66 16 128/55 03/20/23 22:00 62 157/61 95 03/20/23 21:00 147/72 94 L 03/20/23 20:24 62 18 144/58 96 03/20/23 19:29 98.1 F 68 18 151/117 98 Intake and Output 03/20/23 03/21/23 03/21/23 22:59 06:59 14:59 Intake Total 128.729 Output Total 350 Balance -350 128.729 Intake: Intake, IV Titration 128.729 Amount Heparin Sod,Pork in 0.45% 128.729 NaCl 25,000 unit In 0.45 % NaCl 1 250ml.bag @ 18 UNITS/KG/HR 16.901 mls/hr IV .[id number] [facility] Rx#: [id number] Output: Urine 350 Other: Weight 93.894 kg Results CBC & Chem 7: 03/21/23 13:14 03/21/23 13:14 Labs: Abnormal Lab Results - Last 24 Hours (Table) 03/20/23 03/20/23 03/20/23 Range/Units 19:58 19:58 19:58 RDW 16.2 H (11.5-15.5) % Neutrophils # 7.8 H (1.3-7.7) k/uL APTT (22.0-30.0) sec D-Dimer 11.94 H (<0.60) mg/L FEU BUN 45 H (7-17) mg/dL Creatinine 2.01 H (0.52-1.04) mg/dL Glucose 245 H (74-99) mg/dL Calcium 8.0 L (8.4-10.2) mg/dL Magnesium 2.8 H (1.6-2.3) mg/dL 03/21/23 03/21/23 03/21/23 Range/Units 06:47 13:14 13:14 RDW 16.1 H (11.5-15.5) % Neutrophils # (1.3-7.7) k/uL APTT >200.0 H* (22.0-30.0) sec D-Dimer (<0.60) mg/L FEU BUN 38 H (7-17) mg/dL Creatinine 1.57 H (0.52-1.04) mg/dL Glucose (74-99) mg/dL Calcium 8.2 L (8.4-10.2) mg/dL Magnesium 3.0 H (1.6-2.3) mg/dL
[2023-03-22] MEDS: SODIUM CHLORIDE 0.9% 1,000 ML IV SCH ×2 (03:47→18:06)
[2023-03-22] MEDS: HEPARIN SOD,PORK IN 0.45% NACL 25,000 UNIT in 0.45% NACL 1 250ML.BAG IV SCH ×2 (05:22→10:08)
[2023-03-22 06:07] LABS: Glucose,Whole Blood 83 mg/dL (70-110)
[2023-03-22] MEDS: INSULIN ASPART (NovoLOG) 100 UNIT/ML VIAL SQ SCH ×4 (06:15→20:58)
--- NOTE | 2023-03-22 07:50 | P.GSCN ---
History of Present Illness History of present illness: 82-year-old white female patient came to the ER with history of fatigue weakness and swelling of the left lower extremity. Patient was hospitalized at [facility] recently discharged from the hospital patient had a ultrasound done which shows DVT of the left leg. Patient is on heparin. Patient also has a ulcer on the left heel with some Brown induration bilateral lower extremity. Patient also has history of diabetes hypertension. I will review the record from [facility] follow with you in the meantime patient is on heparin will be continued Neck is supple no bruit appreciated Chest first and second sound present few crackles the lung bases good entry both lungs Abdomen soft nontender Vascular femorals are 1+ bilateral patient has a superficial ulcer ulcer on the left heel with some Brown induration tenderness no vascular compromise Ultrasound shows DVT of the left leg patient is on heparin plan is continue with antibiotic correlation medihoney gel to the left heel with the compression wrap we'll follow with you 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, VRE Year Discovered:: 08/27/21-VRE; 2013-MRSA MDRO Source:: Left Leg-VRE; left leg-MRSA Past Surgical History: Appendectomy, Section, Cholecystectomy, Heart Catheterization, Hysterectomy Additional Past Surgical History / Comment(s): pericardial window, surgery mir eyes for glaucoma, cyst removal on abdomen Past Anesthesia/Blood Transfusion Reactions: Blood Transfusion Reaction Additional Past Anesthesia/Blood Transfusion Reaction / Comm: reaction to blood transfusion 25-30 yrs ago-"I got red and they pulled it out" Past Psychological History: No Psychological Hx Reported Smoking Status: Former smoker Past Alcohol Use History: None Reported Past Drug Use History: None Reported - Past Family History Father Family Medical History: Cancer Brother(s) Family Medical History: Cancer Medications and Allergies Home Medications Medication Instructions Recorded Confirmed Type Aspirin [Adult Low Dose Aspirin EC] 81 mg PO DAILY 01/31/19 03/20/23 History Torsemide [Demadex] 20 mg PO BID 01/31/19 03/20/23 History Atorvastatin [Lipitor] 20 mg PO HS 08/27/21 03/20/23 History Docusate Sodium 250 mg PO DAILY 03/20/23 03/20/23 History Empagliflozin [Jardiance] 10 mg PO DAILY 03/20/23 03/20/23 History Metoprolol Succinate (ER) [Toprol 25 mg PO DAILY 03/20/23 03/20/23 History Xl] Potassium Chloride ER [K-Dur 20] 20 meq PO BID 03/20/23 03/20/23 History Spironolactone [Aldactone] 12.5 mg PO DAILY 03/20/23 03/20/23 History Apixaban [Eliquis Starter Pack 5 - 10 mg PO DIRECTED 30 Days 03/21/23 Rx (for VTE)] #1 each Allergies Allergy/AdvReac Type Severity Reaction Status Date / Time cefepime Allergy Anaphylaxis Verified 03/20/23 22:51 latex Allergy Rash/red Verified 03/20/23 22:51 skin Penicillins Allergy Rash/Hives Verified 03/20/23 22:51 Surgical - Exam Vital Signs Temp Pulse Resp BP Pulse Ox 98.1 F 68 18 151/117 98 03/20/23 19:29 03/20/23 19:29 03/20/23 19:29 03/20/23 19:29 03/20/23 19:29 Results - Labs 03/21/23 13:14 03/21/23 13:14 Abnormal Lab Results - Last 24 Hours (Table) 03/21/23 03/21/23 03/21/23 Range/Units 06:47 13:14 13:14 RDW 16.1 H (11.5-15.5) % APTT >200.0 H* (22.0-30.0) sec BUN 38 H (7-17) mg/dL Creatinine 1.57 H (0.52-1.04) mg/dL POC Glucose (mg/dL) (70-110) mg/dL Calcium 8.2 L (8.4-10.2) mg/dL Magnesium 3.0 H (1.6-2.3) mg/dL 03/21/23 03/21/23 03/21/23 Range/Units 16:08 17:37 20:30 RDW (11.5-15.5) % APTT 88.1 H (22.0-30.0) sec BUN (7-17) mg/dL Creatinine (0.52-1.04) mg/dL POC Glucose (mg/dL) 148 H 172 H (70-110) mg/dL Calcium (8.4-10.2) mg/dL Magnesium (1.6-2.3) mg/dL 03/22/23 03/22/23 Range/Units 00:30 05:52 RDW (11.5-15.5) % APTT 66.2 H 64.0 H (22.0-30.0) sec BUN (7-17) mg/dL Creatinine (0.52-1.04) mg/dL POC Glucose (mg/dL) (70-110) mg/dL Calcium (8.4-10.2) mg/dL Magnesium (1.6-2.3) mg/dL Diabetes panel 03/21/23 Range/Units 13:14 Sodium 141 (137-145) mmol/L Potassium 4.5 (3.5-5.1) mmol/L Chloride 104 (98-107) mmol/L Carbon Dioxide 26 (22-30) mmol/L BUN 38 H (7-17) mg/dL Creatinine 1.57 H (0.52-1.04) mg/dL Glucose 95 (74-99) mg/dL Calcium 8.2 L (8.4-10.2) mg/dL Calcium panel 03/21/23 Range/Units 13:14 Calcium 8.2 L (8.4-10.2) mg/dL Pituitary panel 03/21/23 Range/Units 13:14 Sodium 141 (137-145) mmol/L Potassium 4.5 (3.5-5.1) mmol/L Chloride 104 (98-107) mmol/L Carbon Dioxide 26 (22-30) mmol/L BUN 38 H (7-17) mg/dL Creatinine 1.57 H (0.52-1.04) mg/dL Glucose 95 (74-99) mg/dL Calcium 8.2 L (8.4-10.2) mg/dL Adrenal panel 03/21/23 Range/Units 13:14 Sodium 141 (137-145) mmol/L Potassium 4.5 (3.5-5.1) mmol/L Chloride 104 (98-107) mmol/L Carbon Dioxide 26 (22-30) mmol/L BUN 38 H (7-17) mg/dL Creatinine 1.57 H (0.52-1.04) mg/dL Glucose 95 (74-99) mg/dL Calcium 8.2 L (8.4-10.2) mg/dL
[2023-03-22] MEDS: DOCUSATE 100 MG CAP PO SCH (09:10)
[2023-03-22] MEDS: SPIRONOLACTONE 25 MG TAB PO SCH (09:11)
[2023-03-22] MEDS: METOPROLOL SUCCINATE (ER) 25 MG TAB.ER.24H PO SCH (09:11)
[2023-03-22] MEDS: DAPAGLIFLOZIN PROPANEDIOL 5 MG TABLET PO SCH (09:11)
[2023-03-22] MEDS: ASPIRIN 81 MG PO SCH (09:11)
[2023-03-22 11:24] LABS: ALT 14 U/L (8-44); AST 18 U/L (13-35); Albumin 3.3 d/dL (3.8-4.9); Alkaline Phosphatase 114 U/L (41-126); BUN/Creat Ratio 20.31 Ratio (12.00-20.00); Blood Urea Nitrogen 32.5 mg/dL (9.0-27.0); Carbon Dioxide 26.8 mmol/L (21.6-31.8); Chloride 108 mmol/L (96-109); Glucose 87 mg/dL (70-110); Potassium 4.8 mmol/L (3.5-5.5); Sodium 142 mmol/L (135-145); Total Bilirubin 0.2 mg/dL (0.3-1.2); Total Protein 6.3 d/dL (6.2-8.2)
[2023-03-22 11:39] LABS: Glucose,Whole Blood 131 mg/dL (70-110)
[2023-03-22 12:15] LABS: Basophils # (A) 0.07 X 10*3/uL (0.00-0.10); Basophils % (A) 0.8 %; Eosinophils # (A) 0.44 X 10*3/uL (0.04-0.35); Eosinophils % (A) 4.8 %; HCT 41.3 % (37.2-46.3); HGB 12.4 d/dL (12.0-15.0); Lymphocytes # (A) 1.95 X 10*3/uL (0.90-5.00); Lymphocytes % (A) 21.3 %; MCH 27.9 pg (27.0-32.0); Mean Platelet Volume 10.1 FL (9.5-12.2); Monocytes # (A) 0.93 X 10*3/uL (0.20-1.00); Monocytes % (A) 10.2 %; NRBC Per 100 WBC 0 X 10*3/uL (0.00-0.01); Neutrophils # (A) 5.68 X 10*3/uL (1.80-7.70); Platelet Count 260 X 10*3/uL (140-440); RBC 4.44 X 10*6/uL (4.10-5.20); RDW 17.2 % (11.5-14.5); WBC 9.15 X 10*3/uL (4.50-10.00)
[2023-03-22 16:33] LABS: Glucose,Whole Blood 152 mg/dL (70-110)
[2023-03-22] MEDS: ATORVASTATIN 20 MG TAB PO SCH (20:58)
[2023-03-22 21:00] LABS: Glucose,Whole Blood 139 mg/dL (70-110)
--- NOTE | 2023-03-22 21:48 | P.CONS ---
History of Present Illness - Reason for Consult Consult date: 03/22/23 - History of Present Illness Patient is a 82-year-old female with a past medical history significant for diabetes mellitus hypertension hyperlipidemia history of recurrent lower extremity cellulitis infected wound and has been treated with multiple courses of IV antibiotic therapy patient was brought into the hospital yesterday for evaluation generalized weakness fatigue and worsening left leg swelling patient was able to go weakness unable to get out of the bed has been complaining of painful ulcer to the left heel area pain is sharp and moderate intensity denies any drainage from the wound also complaining of pain to the right lateral leg area on presentation to the hospital the patient was afebrile and no fever has been recorded subsequently patient did have a normal white count BUN/creatinine has been mildly elevated results are normal patient did have a venous Doppler study positive for DVT in the left common femoral vein positive hospital for thrombus in the left great saphenous vein no DVT in the right lower extremity infectious disease was consulted regarding lower extremity wound and need for antibiotic therapy 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, VRE Year Discovered:: 08/27/21-VRE; 2013-MRSA MDRO Source:: Left Leg-VRE; left leg-MRSA Past Surgical History: Appendectomy, Section, Cholecystectomy, Heart Catheterization, Hysterectomy Additional Past Surgical History / Comment(s): pericardial window, surgery mir eyes for glaucoma, cyst removal on abdomen Past Anesthesia/Blood Transfusion Reactions: Blood Transfusion Reaction Additional Past Anesthesia/Blood Transfusion Reaction / Comm: reaction to blood transfusion 25-30 yrs ago-"I got red and they pulled it out" Past Psychological History: No Psychological Hx Reported Smoking Status: Former smoker Past Alcohol Use History: None Reported Past Drug Use History: None Reported - Past Family History Father Family Medical History: Cancer Brother(s) Family Medical History: Cancer Medications and Allergies Home Medications Medication Instructions Recorded Confirmed Type Aspirin [Adult Low Dose Aspirin EC] 81 mg PO DAILY 01/31/19 03/20/23 History Torsemide [Demadex] 20 mg PO BID 01/31/19 03/20/23 History Atorvastatin [Lipitor] 20 mg PO HS 08/27/21 03/20/23 History Docusate Sodium 250 mg PO DAILY 03/20/23 03/20/23 History Empagliflozin [Jardiance] 10 mg PO DAILY 03/20/23 03/20/23 History Metoprolol Succinate (ER) [Toprol 25 mg PO DAILY 03/20/23 03/20/23 History Xl] Potassium Chloride ER [K-Dur 20] 20 meq PO BID 03/20/23 03/20/23 History Spironolactone [Aldactone] 12.5 mg PO DAILY 03/20/23 03/20/23 History Apixaban [Eliquis Starter Pack 5 - 10 mg PO DIRECTED 30 Days 03/21/23 Rx (for VTE)] #1 each Allergies Allergy/AdvReac Type Severity Reaction Status Date / Time cefepime Allergy Anaphylaxis Verified 03/20/23 22:51 latex Allergy Rash/red Verified 03/20/23 22:51 skin Penicillins Allergy Rash/Hives Verified 03/20/23 22:51 Physical Exam Vitals: Vital Signs Temp Pulse Pulse Resp BP BP Pulse Ox 03/22/23 07:00 98.1 F 71 18 146/66 94 L 03/22/23 02:00 97.6 F 66 16 116/42 96 03/21/23 18:50 98.8 F 71 18 160/67 96 03/21/23 18:04 98.0 F 68 20 148/70 97 03/21/23 15:44 97.9 F 80 18 151/87 95 03/21/23 14:22 82 18 137/64 99 Intake and Output 03/21/23 03/22/23 03/22/23 22:59 06:59 14:59 Intake Total 98.807 182.15 Balance 98.807 182.15 Intake: Intake, IV Titration 98.807 182.15 Amount Heparin Sod,Pork in 0.45% 98.807 182.15 NaCl 25,000 unit In 0.45 % NaCl 1 250ml.bag @ 18 UNITS/KG/HR 16.901 mls/hr IV .[id number] [facility] Rx#: [id number] Other: Voiding Method Bedpan # Voids 3 1 # Bowel Movements 1 Weight 93.894 kg Results CBC & Chem 7: 03/22/23 05:52 03/22/23 05:52 Labs: Abnormal Lab Results - Last 24 Hours (Table) 03/21/23 03/21/23 03/21/23 Range/Units 13:14 13:14 16:08 RDW 16.1 H (11.5-15.5) % APTT 88.1 H (22.0-30.0) sec BUN 38 H (7-17) mg/dL Creatinine 1.57 H (0.52-1.04) mg/dL POC Glucose (mg/dL) (70-110) mg/dL Calcium 8.2 L (8.4-10.2) mg/dL Magnesium 3.0 H (1.6-2.3) mg/dL 03/21/23 03/21/23 03/22/23 Range/Units 17:37 20:30 00:30 RDW (11.5-15.5) % APTT 66.2 H (22.0-30.0) sec BUN (7-17) mg/dL Creatinine (0.52-1.04) mg/dL POC Glucose (mg/dL) 148 H 172 H (70-110) mg/dL Calcium (8.4-10.2) mg/dL Magnesium (1.6-2.3) mg/dL 03/22/23 Range/Units 05:52 RDW (11.5-15.5) % APTT 64.0 H (22.0-30.0) sec BUN (7-17) mg/dL Creatinine (0.52-1.04) mg/dL POC Glucose (mg/dL) (70-110) mg/dL Calcium (8.4-10.2) mg/dL Magnesium (1.6-2.3) mg/dL Assessment and Plan Plan: 1-patient with a left heel wound wound base with no slough tissue, there is some swelling but no redness no foul-smelling drainage patient not running any fever patient did not have any vital clinical cellulitis, 2-patient did have dry scaly skin to the right lower extremity with no evidence of any cellulitis 3-continue local wound care to the left heel with [facility] per vascular surgery 4-apply moisturizing cream to the dry skin recent bilateral lower extremity No need for antibiotic therapy We will follow on clinical condition and cultures to further adjust medication if needed Thank you for this consultation we will follow the patient along with you Dictation was produced using [employer] dictation software. please excuse any grammatical, word or spelling errors. Time with Patient: Greater than 30
[2023-03-23 06:04] LABS: Glucose,Whole Blood 94 mg/dL (70-110)
[2023-03-23] MEDS: INSULIN ASPART (NovoLOG) 100 UNIT/ML VIAL SQ SCH ×4 (06:14→21:19)
[2023-03-23] MEDS: DOCUSATE 100 MG CAP PO SCH (08:26)
[2023-03-23] MEDS: SPIRONOLACTONE 25 MG TAB PO SCH (08:26)
[2023-03-23] MEDS: DAPAGLIFLOZIN PROPANEDIOL 5 MG TABLET PO SCH (08:26)
[2023-03-23] MEDS: METOPROLOL SUCCINATE (ER) 25 MG TAB.ER.24H PO SCH (08:26)
[2023-03-23] MEDS: ASPIRIN 81 MG PO SCH (08:26)
[2023-03-23] MEDS: HEPARIN SOD,PORK IN 0.45% NACL 25,000 UNIT in 0.45% NACL 1 250ML.BAG IV SCH (09:44)
--- NOTE | 2023-03-23 10:15 | P.PN ---
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 According to the note from the family patient has not been able to get out of bed since January 18, 2023 and is also having elevated blood sugars. Patient states that she has not been getting any better despite prolonged recent hospitalization. patient's primary care physician recommended to go to ER. No complaints of fever or chills. No chest pain or shortness of breath. No nausea vomiting or diarrhea. Patient is he is on follow-up with wound care clinic and sees nurse practitioner there. Patient was seen by vascular surgery previously. Chest x-ray showed chronic changes without acute pulmonary process. No significant change from prior. EKG showed sinus rhythm with first-degree AV block. Venous duplex is positive for DVT in the left common femoral vein and positive for superficial thrombus in the left greater saphenous vein. 2D echocardiogram showed normal LV systolic function and moderate mitral annular calcification. VQ scan showed low probability for PE. Laboratory data showed D-dimer 11.9 BUN 45 and creatinine 2.01 and blood sugar is 245 calcium 8.0 magnesium 2.8 and troponin x3 negative proBNP is 1100. 03/22/2023 3 Patient is seen and evaluated in follow-up today with infectious disease and vascular surgery following. Patient reports continued severe pain of the right lower extremity with light palpation or movement and reports improvement in the overall appearance of the skin. Swelling has significantly improved as well. Patient is maintained on IV heparin for DVT and VQ scan was negative for PE. Patient to be transitioned to Eliquis. Awaiting vascular surgery evaluation if patient requires debridement of the right heel. Patient to continue with moisturizing cream and local wound care per infectious disease recommendations. Patient is known to wound care in the outpatient setting. Patient also maintained on Accu-Cheks before meals and at bedtime along with sliding scale and will continue. Patient be evaluated by physical therapy although patient is refusing to go to rehab if required as she reports she has help and lives with her son. Patient is afebrile denies chest pain or shortness of breath. No reports of nausea or vomiting and patient is tolerating diet. Review of systems: Constitutional: No reports of fatigue, fever, or chills Cardiovascular: No reports of chest pain or palpitations Respiratory: No reports of shortness of breath or cough GI: No reports of nausea, vomiting, or diarrhea : No reports of dysuria or retention Neurovascular: reports of generalized weakness and bilateral lower extremity pain more so on the right. All medications have been reviewed Physical exam: Gen: This is a 82-year-old female who is awake, alert and oriented 3, well- developed, well-nourished, obese HEENT: Head is atraumatic, normocephalic. Pupils equal, round. Sclerae is anicteric. NECK: Supple. No JVD. No lymphadenopathy. No thyromegaly. LUNGS: Clear to auscultation. No wheezes or rhonchi. No intercostal retra ctions. HEART: Regular rate and rhythm. No murmur. ABDOMEN: Soft. Bowel sounds are present. No masses. No tenderness. EXTREMITIES: No pedal edema. No calf tenderness. Bilateral lower extremity swe lling and excoriation of the skin with some improvement in swelling, extremely sensitive to light palpation NEUROLOGICAL: Patient is awake, alert and oriented x3. Cranial nerves 2 through 12 are grossly intact. Assessment: Acute left lower extremity DVT. Lower extremity duplex scan showed left common femoral vein DVT and superficial thrombus in the left greater saphenous vein. Hyperglycemia uncontrolled diabetes type 2. [id number]-hlempnhkj Acute kidney injury with possible underlying CKD stage III Lower extremity bilateral diabetic foot ulcers Hypertension Hyperlipidemia History of VRE and MRSA leg infections Prior history of smoking DVT prophylaxis patient is already heparin drip Plan: Patient will be continued on heparin drip. And we'll transition to oral eliquis. Continue Gentle IV hydration. Continue Accu-Cheks before meals and at bedtime and will continue on sliding s hilario Repeat labs for a.m. ordered Vascular surgery and ID following recommending continuing with local wound care, currently not on antibiotics and no antibiotics therapy necessary at this time per anxiety Physical therapy consulted as patient continues with weakness and difficulty with walking as she reports due to her swelling of her lower extremities and pain. Patient is refusing to go to rehab and reports she lives with her son and has help at home and has home care. We'll confirm with case management for discharge planning Due to multiple complex medical issues, Prognosis is guarded at this time. The impression and plan of care has been dictated by Odilia Henry, Nurse Practitioner as directed. Dr. Nicolle MD I have performed a history and examination and MDM of this patient, discussed the same with the dictator, and agree with the dictator's assessment and plan as written ,documented as a scribe. Based on total visit time, I have performed more than 50% of the visit. Objective - Vital Signs Vital signs: Vital Signs Temp 98.1 F 03/22/23 07:00 Pulse 71 03/22/23 07:00 Resp 18 03/22/23 07:00 BP 146/66 03/22/23 07:00 Pulse Ox 94 L 03/22/23 07:00 FiO2 Intake & Output 03/21/23 03/22/23 03/22/23 18:59 06:59 18:59 Intake Total 227.536 182.15 Balance 227.536 182.15 Weight 93.894 kg Intake: Intake, IV Titration 227.536 182.15 Amount Heparin Sod,Pork in 0.45% 227.536 182.15 NaCl 25,000 unit In 0.45 % NaCl 1 250ml.bag @ 18 UNITS/KG/HR 16.901 mls/hr IV .[id number] [facility] Rx#: [id number] Other: Voiding Method Bedpan # Voids 3 1 # Bowel Movements 1 - Labs CBC & Chem 7: 03/22/23 05:52 03/22/23 05:52 Labs: Abnormal Lab Results - Last 24 Hours (Table) 03/21/23 03/21/23 03/21/23 Range/Units 13:14 13:14 16:08 RDW 16.1 H (11.5-15.5) % APTT 88.1 H (22.0-30.0) sec BUN 38 H (7-17) mg/dL Creatinine 1.57 H (0.52-1.04) mg/dL POC Glucose (mg/dL) (70-110) mg/dL Calcium 8.2 L (8.4-10.2) mg/dL Magnesium 3.0 H (1.6-2.3) mg/dL 03/21/23 03/21/23 03/22/23 Range/Units 17:37 20:30 00:30 RDW (11.5-15.5) % APTT 66.2 H (22.0-30.0) sec BUN (7-17) mg/dL Creatinine (0.52-1.04) mg/dL POC Glucose (mg/dL) 148 H 172 H (70-110) mg/dL Calcium (8.4-10.2) mg/dL Magnesium (1.6-2.3) mg/dL 03/22/23 Range/Units 05:52 RDW (11.5-15.5) % APTT 64.0 H (22.0-30.0) sec BUN (7-17) mg/dL Creatinine (0.52-1.04) mg/dL POC Glucose (mg/dL) (70-110) mg/dL Calcium (8.4-10.2) mg/dL Magnesium (1.6-2.3) mg/dL
[2023-03-23 11:13] LABS: BUN/Creat Ratio 20.17 Ratio (12.00-20.00); Blood Urea Nitrogen 24.2 mg/dL (9.0-27.0); Calcium 7.9 mg/dL (8.7-10.3); Chloride 111 mmol/L (96-109); Glucose 93 mg/dL (70-110); Potassium 4.3 mmol/L (3.5-5.5); Sodium 143 mmol/L (135-145)
[2023-03-23 11:46] LABS: Glucose,Whole Blood 108 mg/dL (70-110)
[2023-03-23 16:22] LABS: Glucose,Whole Blood 153 mg/dL (70-110)
[2023-03-23] MEDS: TORSEMIDE 20 MG TAB PO SCH ×2 (17:03→21:19)
[2023-03-23 21:07] LABS: Glucose,Whole Blood 145 mg/dL (70-110)
[2023-03-23] MEDS: ATORVASTATIN 20 MG TAB PO SCH (21:18)
[2023-03-23] MEDS: APIXABAN 5 MG TAB PO SCH (21:18)
[2023-03-23] MEDS: SODIUM CHLORIDE 0.9% 1,000 ML IV SCH (21:28)
[2023-03-24 06:19] LABS: Glucose,Whole Blood 104 mg/dL (70-110)
[2023-03-24] MEDS: INSULIN ASPART (NovoLOG) 100 UNIT/ML VIAL SQ SCH ×2 (06:56→12:03)
[2023-03-24] MEDS: APIXABAN 5 MG TAB PO SCH (08:19)
[2023-03-24] MEDS: SPIRONOLACTONE 25 MG TAB PO SCH (08:19)
[2023-03-24] MEDS: DOCUSATE 100 MG CAP PO SCH (08:19)
[2023-03-24] MEDS: DAPAGLIFLOZIN PROPANEDIOL 5 MG TABLET PO SCH (08:19)
[2023-03-24] MEDS: TORSEMIDE 20 MG TAB PO SCH (08:19)
[2023-03-24] MEDS: METOPROLOL SUCCINATE (ER) 25 MG TAB.ER.24H PO SCH (08:19)
[2023-03-24] MEDS: ASPIRIN 81 MG PO SCH (08:20)
--- NOTE | 2023-03-24 09:50 | P.PN ---
Subjective Progress Note Date: 03/23/23 Chief Complaint: Weakness Patient is a 82-year-old female with a known history of diabetes type 2 lll-knpkxfs-omomhrhxw, hypertension, hyperlipidemia, history of left leg VRE and MRSA infection and bilateral lower extremity diabetic ulcers and wounds and prior history of smoking presents to ER with complaints of generalized weakness and fatigue and worsening left leg swelling and pain. According to the note from the family patient has not been able to get out of bed since January 18, 2023 and is also having elevated blood sugars. Patient states that she has not been getting any better despite prolonged recent hospitalization. patient's primary care physician recommended to go to ER. No complaints of fever or chills. No chest pain or shortness of breath. No nausea vomiting or diarrhea. Patient is he is on follow-up with wound care clinic and sees nurse practitioner there. Patient was seen by vascular surgery previously. Chest x-ray showed chronic changes without acute pulmonary process. No significant change from prior. EKG showed sinus rhythm with first-degree AV block. Venous duplex is positive for DVT in the left common femoral vein and positive for superficial thrombus in the left greater saphenous vein. 2D echocardiogram showed normal LV systolic function and moderate mitral annular calcification. VQ scan showed low probability for PE. Laboratory data showed D-dimer 11.9 BUN 45 and creatinine 2.01 and blood sugar is 245 calcium 8.0 magnesium 2.8 and troponin x3 negative proBNP is 1100. 03/22/2023 Patient is seen and evaluated in follow-up today with infectious disease and vascular surgery following. Patient reports continued severe pain of the right lower extremity with light palpation or movement and reports improvement in the overall appearance of the skin. Swelling has significantly improved as well. Patient is maintained on IV heparin for DVT and VQ scan was negative for PE. Patient to be transitioned to Eliquis. Awaiting vascular surgery evaluation if patient requires debridement of the right heel. Patient to continue with moisturizing cream and local wound care per infectious disease recommendations. Patient is known to wound care in the outpatient setting. Patient also maintained on Accu-Cheks before meals and at bedtime along with sliding scale and will continue. Patient be evaluated by physical therapy although patient is refusing to go to rehab if required as she reports she has help and lives with her son. Patient is afebrile denies chest pain or shortness of breath. No reports of nausea or vomiting and patient is tolerating diet. 03/23/2023 Patient is seen in follow-up today and currently sitting up in the chair. Patient continues with significant left lower extremity swelling although rep orts the calf pain is somewhat improved. Patient is maintained on heparin with vascular surgery and infectious disease following. Discussed with vascular surgery the patient will follow-up in the outpatient setting at the wound care center. Patient to continue local wound care and will not require antibiotics per ID recommendations. Patient was maintained on gentle hydration and we'll transition to oral torsemide to help with the swelling. Patient chronically uses torsemide in the outpatient setting. Patient reports she is mostly wheelchair and bedbound and transfers and pivots for position changes. Patient was with her son and will be going home with continued home care. No plans for surgical intervention per vascular and okay to start anticoagulation oral form. Review of systems: Constitutional: No reports of fatigue, fever, or chills Cardiovascular: No reports of chest pain or palpitations Respiratory: No reports of shortness of breath or cough GI: No reports of nausea, vomiting, or diarrhea : No reports of dysuria or retention Neurovascular: reports of generalized weakness and bilateral lower extremity pain and swelling although improving All medications have been reviewed Physical exam: Gen: This is a 82-year-old female who is awake, alert and oriented 3, well- developed, well-nourished, obese HEENT: Head is atraumatic, normocephalic. Pupils equal, round. Sclerae is anicteric. NECK: Supple. No JVD. No lymphadenopathy. No thyromegaly. LUNGS: Clear to auscultation. No wheezes or rhonchi. No intercostal retractions. HEART: Regular rate and rhythm. No murmur. ABDOMEN: Soft. Bowel sounds are present. No masses. No tenderness. EXTREMITIES: No pedal edema. No calf tenderness. Bilateral lower extremity swelling and excoriation of the skin with some improvement in swelling, upper thigh is swollen NEUROLOGICAL: Patient is awake, alert and oriented x3. Cranial nerves 2 through 12 are grossly intact. Assessment: Acute left lower extremity DVT. Lower extremity duplex scan showed left common femoral vein DVT and superficial thrombus in the left greater saphenous vein. Hyperglycemia uncontrolled diabetes type 2. Jhx-mpvgsbk-ezpkmvovy Acute kidney injury with possible underlying CKD stage III Lower extremity bilateral diabetic foot ulcers Hypertension Hyperlipidemia History of VRE and MRSA leg infections Prior history of smoking DVT prophylaxis eliquis Plan: Patient was continued on heparin drip. And we'll transition to oral eliquis aft er discussion with vascular surgery as there are no plans for surgical intervention this admission. Patient will follow-up at the wound center with Dr. Choe outpatient Kidney functions improving and we'll discontinue fluids and resume torsemide Continue Accu-Cheks before meals and at bedtime and will continue on sliding scale Repeat labs for a.m. ordered Vascular surgery and ID following recommending continuing with local wound care, currently not on antibiotics and no antibiotics therapy necessary at this time per infectious disease Patient does have home care out of the home and lives with her son and is refusing any form of rehab and will be going home on discharge Due to multiple complex medical issues, Prognosis is guarded at this time. Probable discharge in 24 hours The impression and plan of care has been dictated by Odilia Henry, Nurse Practitioner as directed. Dr. Nicolle MD I have performed a history and examination and MDM of this patient, discussed th with the dictator, and agree with the dictator's assessment and plan as written ,documented as a scribe. Based on total visit time, I have performed more than 50% of the visit. Objective - Vital Signs Vital signs: Vital Signs Temp 98.1 F 03/23/23 06:55 Pulse 60 03/23/23 06:55 Resp 17 03/23/23 06:55 BP 118/73 03/23/23 06:55 Pulse Ox 94 L 03/23/23 09:15 FiO2 21 03/23/23 09:15 Intake & Output 03/22/23 03/23/23 03/23/23 18:59 06:59 18:59 Intake Total 1107.15 250 Balance 1107.15 250 Intake: Intake, IV Titration 1107.15 250 Amount Heparin Sod,Pork in 0.45% 182.15 250 NaCl 25,000 unit In 0.45 % NaCl 1 250ml.bag @ 18 UNITS/KG/HR 16.901 mls/hr IV .[id number] [facility] Rx#: [id number] Sodium Chloride 0.9% 1, 925 000 ml @ 75 mls/hr IV . [id number] [facility] Rx#:[id number] Other: Voiding Method Bedpan Bedpan # Voids 2 1 # Bowel Movements 1 - Labs CBC & Chem 7: 03/22/23 05:52 03/23/23 07:04 Labs: Abnormal Lab Results - Last 24 Hours (Table) 03/22/23 03/22/23 03/22/23 Range/Units 05:52 05:52 05:52 MCHC 30.0 L (32.0-37.0) d/dL RDW 17.2 H (11.5-14.5) % Eosinophils # 0.44 H (0.04-0.35) X 10*3/uL APTT (22.0-30.0) sec BUN 32.5 H (9.0-27.0) mg/dL Creatinine 1.6 H (0.6-1.5) mg/dL Est GFR (CKD-EPI) 32 L (>=60) BUN/Creatinine Ratio 20.31 H (12.00-20.00) Ratio POC Glucose (mg/dL) (70-110) mg/dL Hemoglobin A1c 6.5 H (<=6.0) % Calcium 8.0 L (8.7-10.3) mg/dL Total Bilirubin 0.2 L (0.3-1.2) mg/dL Albumin 3.3 L (3.8-4.9) d/dL Albumin/Globulin Ratio 1.10 L (1.60-3.17) Ratio 03/22/23 03/22/23 03/22/23 Range/Units 11:38 16:32 20:57 MCHC (32.0-37.0) d/dL RDW (11.5-14.5) % Eosinophils # (0.04-0.35) X 10*3/uL APTT (22.0-30.0) sec BUN (9.0-27.0) mg/dL Creatinine (0.6-1.5) mg/dL Est GFR (CKD-EPI) (>=60) BUN/Creatinine Ratio (12.00-20.00) Ratio POC Glucose (mg/dL) 131 H 152 H 139 H (70-110) mg/dL Hemoglobin A1c (<=6.0) % Calcium (8.7-10.3) mg/dL Total Bilirubin (0.3-1.2) mg/dL Albumin (3.8-4.9) d/dL Albumin/Globulin Ratio (1.60-3.17) Ratio / Range/Units 07:04 MCHC (32.0-37.0) d/dL RDW (11.5-14.5) % Eosinophils # (0.04-0.35) X 10*3/uL APTT 51.2 H (22.0-30.0) sec BUN (9.0-27.0) mg/dL Creatinine (0.6-1.5) mg/dL Est GFR (CKD-EPI) (>=60) BUN/Creatinine Ratio (12.00-20.00) Ratio POC Glucose (mg/dL) (70-110) mg/dL Hemoglobin A1c (<=6.0) % Calcium (8.7-10.3) mg/dL Total Bilirubin (0.3-1.2) mg/dL Albumin (3.8-4.9) d/dL Albumin/Globulin Ratio (1.60-3.17) Ratio
[2023-03-24 12:46] LABS: Glucose,Whole Blood 139 mg/dL (70-110)
[2023-03-24 15:04] VITALS: BP 133/68; PULSE 63; RESP 15; TEMP 97.9
--- NOTE | 2023-03-24 16:16 | P.PN ---
Subjective Progress Note Date: 03/23/23 Principal diagnosis: Left heel wound and question cellulitis Patient is a 82-year-old female with multiple comorbidities history of lower extremity venous stasis ulcer and cellulitis is admitted to the hospital with increasing swelling pain to the left lower extremity and also have a wound to the left heel area patient has been diagnosed with a DVT. On today's evaluation that is 03/23/2023, the patient denies having any fever or any chills she is breathing comfortably on room air no chest pain shortness of breath or cough no abdominal pain still complaining of pain to the left heel area that is no drainage patient did have a normal white count of 9.15 on 03/22/2023 no CBC was done today Objective - Vital Signs Vital signs: Vital Signs Temp 98.1 F 03/23/23 06:55 Pulse 60 03/23/23 06:55 Resp 17 03/23/23 06:55 BP 118/73 03/23/23 06:55 Pulse Ox 94 L 03/23/23 09:15 FiO2 21 03/23/23 09:15 Intake & Output 03/22/23 03/23/23 03/23/23 18:59 06:59 18:59 Intake Total 1107.15 250 Balance 1107.15 250 Intake: Intake, IV Titration 1107.15 250 Amount Heparin Sod,Pork in 0.45% 182.15 250 NaCl 25,000 unit In 0.45 % NaCl 1 250ml.bag @ 18 UNITS/KG/HR 16.901 mls/hr IV .[id number] [facility] Rx#: [id number] Sodium Chloride 0.9% 1, 925 000 ml @ 75 mls/hr IV . [id number] [facility] Rx#:[id number] Other: Voiding Method Bedpan Bedpan Bedpan # Voids 2 1 # Bowel Movements 1 - Exam GENERAL DESCRIPTION: An elderly male lying in bed in no distress RESPIRATORY SYSTEM: Unlabored breathing , decreased breath sounds at bases HEART: S1 S2 regular rate and rhythm , ABDOMEN: Soft , no tenderness EXTREMITIES: Bilateral lower extremity are currently dressed no drainage of the dressing - Labs CBC & Chem 7: 03/22/23 05:52 03/23/23 07:04 Labs: Abnormal Lab Results - Last 24 Hours (Table) 03/22/23 03/22/23 03/22/23 Range/Units 05:52 16:32 20:57 APTT (22.0-30.0) sec Chloride (96-109) mmol/L Est GFR (CKD-EPI) (>=60) BUN/Creatinine Ratio (12.00-20.00) Ratio POC Glucose (mg/dL) 152 H 139 H (70-110) mg/dL Hemoglobin A1c 6.5 H (<=6.0) % Calcium (8.7-10.3) mg/dL 03/23/23 03/23/23 Range/Units 07:04 07:04 APTT 51.2 H (22.0-30.0) sec Chloride 111 H (96-109) mmol/L Est GFR (CKD-EPI) 45 L (>=60) BUN/Creatinine Ratio 20.17 H (12.00-20.00) Ratio POC Glucose (mg/dL) (70-110) mg/dL Hemoglobin A1c (<=6.0) % Calcium 7.9 L (8.7-10.3) mg/dL Assessment and Plan (1) Venous stasis dermatitis Status: Acute Code(s): I87.2 - VENOUS INSUFFICIENCY (CHRONIC) (PERIPHERAL) SNOMED Code(s): 91031361 (2) Ulcer of left heel Status: Acute Code(s): L97.429 - NON-PRS CHRONIC ULCER OF LEFT HEEL AND MIDFOOT W UNSP SEVERT SNOMED Code(s): 31906236852224706 Plan: 1-patient with a left heel wound wound base with no slough tissue, there is some swelling but no redness no foul-smelling drainage patient not running any fever patient did not have any cellulitis clinically, 2-patient did have dry scaly skin to the right lower extremity with no evidence of any cellulitis 3-continue local wound care to the left heel with Medihoflat rock per vascular surgery 4-apply moisturizing cream to the dry skin recent bilateral lower extremity No need for antibiotic therapy Dictation was produced using [employer] dictation software. please excuse any grammatical, word or spelling errors. Time with Patient: Less than 30
--- NOTE | 2023-03-24 16:17 | P.PN ---
Subjective Progress Note Date: 03/24/23 Principal diagnosis: Left heel wound and question cellulitis Patient is a 82-year-old female with multiple comorbidities history of lower extremity venous stasis ulcer and cellulitis is admitted to the hospital with increasing swelling pain to the left lower extremity and also have a wound to the left heel area patient has been diagnosed with a DVT. On today's evaluation that is 03/24/2023, the patient remains to be afebrile the patient is breathing comfortably on room air has been complaining of some cough not bringing up any sputum no nausea no vomiting no abdominal pain and no diarrhea patient did have a normal white count of 9.15 on 03/22/2023 no CBC was done today Objective - Vital Signs Vital signs: Vital Signs Temp 98.5 F 03/24/23 06:50 Pulse 58 L 03/24/23 06:50 Resp 16 03/24/23 06:50 BP 146/72 03/24/23 06:50 Pulse Ox 96 03/24/23 08:31 FiO2 21 03/23/23 09:15 Intake & Output 03/23/23 03/24/23 03/24/23 18:59 06:59 18:59 Intake Total 250 Output Total 1200 Balance 250 -1200 Intake: Intake, IV Titration 250 Amount Heparin Sod,Pork in 0.45% 250 NaCl 25,000 unit In 0.45 % NaCl 1 250ml.bag @ 18 UNITS/KG/HR 16.901 mls/hr IV .[id number] [facility] Rx#: [id number] Output: Urine 1200 Other: Voiding Method Bedpan Bedpan # Voids 2 # Bowel Movements 2 - Exam GENERAL DESCRIPTION: An elderly male lying in bed in no distress RESPIRATORY SYSTEM: Unlabored breathing , decreased breath sounds at bases HEART: S1 S2 regular rate and rhythm , ABDOMEN: Soft , no tenderness EXTREMITIES: Bilateral lower extremity are currently dressed no drainage of the dressing - Labs CBC & Chem 7: 03/22/23 05:52 03/23/23 07:04 Labs: Abnormal Lab Results - Last 24 Hours (Table) 03/23/23 03/23/23 03/24/23 Range/Units 16:20 21:06 11:19 POC Glucose (mg/dL) 153 H 145 H 139 H (70-110) mg/dL Assessment and Plan (1) Ulcer of left heel Status: Acute Code(s): L97.429 - NON-PRS CHRONIC ULCER OF LEFT HEEL AND MIDFOOT W UNSP SEVERT SNOMED Code(s): 68734550454801277 (2) Venous stasis dermatitis Status: Acute Code(s): I87.2 - VENOUS INSUFFICIENCY (CHRONIC) (PERIPHERAL) SNOMED Code(s): 81595852 Plan: 1-patient with a left heel wound wound base with no slough tissue, there is some swelling but no redness no foul-smelling drainage patient not running any fever patient did not have any cellulitis clinically, 2-patient did have dry scaly skin to the right lower extremity with no evidence of any cellulitis 3-continue local wound care to the left heel with Medihoney and keep the area off the pressure 4-apply moisturizing cream to the dry skin recent bilateral lower extremity, will monitor the patient closely off antibiotic therapy Dictation was produced using [employer] dictation software. please excuse any gramma tical, word or spelling errors. Time with Patient: Less than 30
== END 2023-03-24 16:07 | disposition home health service (06) | DRG 300 ==
LOC: EC 19:20 → 4SSUR 03-21 00:21
PROVIDERS: ADMIT Hospitalist; ATTEND Hospitalist
DX: I82.412 Acute embolism and thrombosis of left femoral vein (principal); L97.429 Non-pressure chronic ulcer of left heel and midfoot with unspecified severity; N17.9 Acute kidney failure, unspecified; I82.812 Embolism and thrombosis of superficial veins of left lower extremity; E11.22 Type 2 diabetes mellitus with diabetic chronic kidney disease; E11.65 Type 2 diabetes mellitus with hyperglycemia; I12.9 Hypertensive chronic kidney disease with stage 1 through stage 4 chronic kidney disease, or unspecified chronic kidney disease; N18.30 Chronic kidney disease, stage 3 unspecified; E11.621 Type 2 diabetes mellitus with foot ulcer; E78.5 Hyperlipidemia, unspecified; I10 Essential (primary) hypertension; I34.81 Nonrheumatic mitral (valve) annulus calcification; I44.0 Atrioventricular block, first degree; I87.2 Venous insufficiency (chronic) (peripheral); Z74.01 Bed confinement status; Z79.4 Long term (current) use of insulin; Z79.82 Long term (current) use of aspirin; Z79.84 Long term (current) use of oral hypoglycemic drugs; Z79.899 Other long term (current) drug therapy; Z86.14 Personal history of Methicillin resistant Staphylococcus aureus infection; Z87.891 Personal history of nicotine dependence; Z90.710 Acquired absence of both cervix and uterus; Z99.3 Dependence on wheelchair; Z91.040 Latex allergy status; Z88.0 Allergy status to penicillin; Z88.8 Allergy status to other drugs, medicaments and biological substances
CPT/HCPCS: 36415; 71045; 78582; 80048; 80053; 83036; 83605; 83735; 83880; 84100; 84484; 85025; 85379; 85610; 85730; 93005; 93306; 93970; 94760; 96361; 96365; 96366; 96375; 99285

== ENCOUNTER 2023-04-17 17:22 | Inpatient (IN) | payer MEDICARE ==
[2023-04-17] MEDS: SODIUM CHLORIDE 0.9% 1,000 ML IV SCH (18:55)
[2023-04-17 18:56] LABS: Basophils % (A) 0 %; Eosinophils # (A) 0.3 k/uL (0-0.7); Eosinophils % (A) 4 %; HCT 42.8 % (34.0-46.0); HGB 12.9 gm/dL (11.4-16.0); Hypochromasia Moderate; Lymphocytes # (A) 0.9 k/uL (1.0-4.8); Lymphocytes % (A) 12 %; MCH 27.7 pg (25.0-35.0); MCHC 30.2 g/dL (31.0-37.0); MCV 91.7 fL (80.0-100.0); Mean Platelet Volume 7.1; Monocytes # (A) 0.5 k/uL (0-1.0); Monocytes % (A) 6 %; Neutrophils % (A) 75 %; Platelet Count 292 k/uL (150-450); RBC 4.67 m/uL (3.80-5.40); RDW 15.8 % (11.5-15.5); WBC 7.9 k/uL (3.8-10.6)
--- NOTE | 2023-04-17 19:03 | XR ---
EXAMINATION TYPE: XR foot complete LT DATE OF EXAM: 04/17/2023 6:52 PM CLINICAL INDICATION:Female, 83 years old with history of heal infection; [facility] COMPARISON: None TECHNIQUE: The left foot was examined in the AP, oblique, and lateral projections. FINDINGS: Suspected soft tissue defect of the healed. No subcutaneous lucencies. There is diffuse soft tissue s welling of the foot. Atherosclerosis of the arterial vasculature. Calcaneal plantar spurring. Multifo brant degeneration changes with joint space narrowing osteophytes throughout the foot. No evidence of o sseous erosion to suggest sesamoiditis. IMPRESSION: 1. No evidence of acute fracture. 2. Heel wound without evidence for osteomyelitis.
[2023-04-17 19:08] LABS: ALT 13 U/L (4-34); AST 23 U/L (14-36); African American GFR (CKD) 37 (>60 ml/min/1.73 sqM); Albumin 3.4 g/dL (3.5-5.0); Alkaline Phosphatase 123 U/L (38-126); Anion Gap 6 mmol/L; Blood Urea Nitrogen 29 mg/dL (7-17); Calcium 8.3 mg/dL (8.4-10.2); Carbon Dioxide 29 mmol/L (22-30); Chloride 106 mmol/L (98-107); Glucose 76 mg/dL (74-99); Non-African American GFR(CKD) 32 (>60 ml/min/1.73 sqM); Potassium 5.1 mmol/L (3.5-5.1); Sodium 141 mmol/L (137-145); Total Bilirubin 0.4 mg/dL (0.2-1.3); Total Protein 7.2 g/dL (6.3-8.2)
[2023-04-17] MEDS ORDERED: NALOXONE 0.4 MG/ML 1 ML VIAL IV PRN (19:23)
[2023-04-17] MEDS ORDERED: VANCOMYCIN IV PER PHARMACY 1 EACH MISC MISCELLANE PRN (19:25)
[2023-04-17] MEDS ORDERED: LEVOFLOXACIN 500MG-D5W PMX 500 MG in DEXTROSE/WATER 1 100ML.BAG IVPB STA (19:26)
--- NOTE | 2023-04-17 19:30 | ED ---
General Adult HPI - General Chief complaint: Wound/Laceration Stated complaint: Left foot pain Time Seen by Provider: 04/17/23 17:25 Source: patient, EMS, RN notes reviewed, old records reviewed Mode of arrival: EMS Limitations: no limitations - History of Present Illness Initial comments: 83-year-old female nonambulatory presenting for evaluation of nonhealing wound to the left foot with associated erythema and drainage. Patient has been seen by home care nursing who sent the patient in for evaluation of worsening infection in the left foot. She denies fever. She has had increased pain. - Related Data Home Medications Medication Instructions Recorded Confirmed Aspirin [Adult Low Dose Aspirin EC] 81 mg PO DAILY 01/31/19 03/20/23 Torsemide [Demadex] 20 mg PO BID 01/31/19 03/20/23 Atorvastatin [Lipitor] 20 mg PO HS 08/27/21 03/20/23 Docusate Sodium 250 mg PO DAILY 03/20/23 03/20/23 Empagliflozin [Jardiance] 10 mg PO DAILY 03/20/23 03/20/23 Metoprolol Succinate (ER) [Toprol 25 mg PO DAILY 03/20/23 03/20/23 XL] Potassium Chloride ER [K-Dur 20] 20 meq PO BID 03/20/23 03/20/23 Spironolactone [Aldactone] 12.5 mg PO DAILY 03/20/23 03/20/23 Previous Rx's Medication Instructions Recorded Apixaban [Eliquis Starter Pack 5 - 10 mg PO DIRECTED 30 Days 03/21/23 (for VTE)] #1 each Allergies Allergy/AdvReac Type Severity Reaction Status Date / Time cefepime Allergy Anaphylaxis Verified 04/17/23 17:28 latex Allergy Rash/red Verified 04/17/23 17:28 skin Penicillins Allergy Rash/Hives Verified 04/17/23 17:28 Review of Systems ROS Statement: Those systems with pertinent positive or pertinent negative responses have been documented in the HPI. ROS Other: All systems not noted in ROS Statement are negative. 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, VRE Date of last positivie culture/infection: 08/27/21-VRE; 2013-MRSA MDRO Source:: Left Leg-VRE; left leg-MRSA Past Surgical History: Appendectomy, Section, Cholecystectomy, Heart Catheterization, Hysterectomy Additional Past Surgical History / Comment(s): pericardial window, surgery mir eyes for glaucoma, cyst removal on abdomen Past Anesthesia/Blood Transfusion Reactions: Blood Transfusion Reaction Additional Past Anesthesia/Blood Transfusion Reaction / Comment(s): reaction to blood transfusion 25-30 yrs ago-"I got red and they pulled it out" Past Psychological History: No Psychological Hx Reported Smoking Status: Former smoker Past Alcohol Use History: None Reported Past Drug Use History: None Reported - Past Family History Father Family Medical History: Cancer Brother(s) Family Medical History: Cancer General Exam Limitations: no limitations General appearance: alert Head exam: Present: atraumatic, normocephalic Eye exam: Present: normal appearance, PERRL ENT exam: Present: normal exam Neck exam: Present: normal inspection Respiratory exam: Present: normal lung sounds bilaterally. Absent: respiratory distress Cardiovascular Exam: Present: regular rate, normal rhythm GI/Abdominal exam: Present: soft. Absent: distended, tenderness Extremities exam: Present: other (Ulceration to the left heel with associated cellulitis throughout the foot) Neurological exam: Present: alert Psychiatric exam: Present: normal affect, normal mood Skin exam: Present: warm Course Vital Signs 04/17/23 17:25 Temperature 97.8 F Pulse Rate 78 Respiratory 20 Rate Blood Pressure 170/80 O2 Sat by Pulse 97 Oximetry Medical Decision Making - Medical Decision Making Was pt. sent in by a medical professional or institution (, PA, EARLY CHILDHOOD ASSOCIATE TEACHER, urgent care, hospital, or retirement...) When possible be specific @ -Sent in by home care nurse Did you speak to anyone other than the patient for history (EMS, parent, family, police, friend...)? What history was obtained from this source @ -No Did you review nursing and triage notes (agree or disagree)? Why? @ -I reviewed and agree with nursing and triage notes Were old charts reviewed (outside hosp., previous admission, EMS record, old EKG, old radiological studies, urgent care reports/EKG's, retirement records)? Report findings @ -No old charts were reviewed Differential Diagnosis (chest pain, altered mental status, abdominal pain women, abdominal pain men, vaginal bleeding, weakness, fever, dyspnea, syncope, headache, dizziness, GI bleed, back pain, seizure, CVA, palpatations, mental health, musculoskeletal)? @ -Cellulitis, diabetic foot wound, sepsis EKG interpreted by me (3pts min.). @ -As above X-rays interpreted by me (1pt min.). @ -None done CT interpreted by me (1pt min.). @ -None done U/S interpreted by me (1pt. min.). @ -None done What testing was considered but not performed or refused? (CT, X-rays, U/S, labs)? Why? @ -None What meds were considered but not given or refused? Why? @ -None Did you discuss the management of the patient with other professionals (professionals i.e. , PA, EARLY CHILDHOOD ASSOCIATE TEACHER, lab, RT, psych nurse, social media designer, print and pattern designer, teacher, safety security officer, dependency case manager)? Give summary @ [facility] Was smoking cessation discussed for >3mins.? @ -No Was critical care preformed (if so, how long)? @ -No Were there social determinants of health that impacted care today? How? (Homelessness, low income, unemployed, alcoholism, drug addiction, transportation, low edu. Level, literacy, decrease access to med. care, m[facility], rehab)? @ -No Was there de-escalation of care discussed even if they declined (Discuss DNR or withdrawal of care, Hospice)? DNR status @ -No What co-morbidities impacted this encounter? (DM, HTN, Smoking, COPD, CAD, Cancer, CVA, ARF, Chemo, Hep., AIDS, mental health diagnosis, sleep apnea, morbid obesity)? @ Diabetic Was patient admitted / discharged? Hospital course, mention meds given and route, prescriptions, significant lab abnormalities, going to OR and other pertinent info. @ -Patient will be admitted for treatment and evaluation of nonhealing ulceration with cellulitis to the left foot. Undiagnosed new problem with uncertain prognosis? @ -No Drug Therapy requiring intensive monitoring for toxicity (Heparin, Nitro, Insulin, Cardizem)? @ -No Were any procedures done? @ -No Diagnosis/symptom? @ Nonhealing wound with cellulitis Acute, or Chronic, or Acute on Chronic? @ Acute Uncomplicated (without systemic symptoms) or Complicated (systemic symptoms)? @ -default Side effects of treatment? @ -No Exacerbation, Progression, or Severe Exacerbation? @ -No Poses a threat to life or bodily function? How? (Chest pain, [place], ND, pneumonia, PE, COPD, DKA, ARF, appy, cholecystitis, CVA, Diverticulitis, Homicidal, Suicidal, threat to staff... and all critical care pts) @ -[Yes, sepsis - Lab Data Result diagrams: 04/17/23 18:39 04/17/23 18:39 Lab Results 04/17/23 04/17/23 04/17/23 Range/Units 18:39 18:39 18:39 WBC 7.9 (3.8-10.6) k/uL RBC 4.67 (3.80-5.40) m/uL Hgb 12.9 (11.4-16.0) gm/dL Hct 42.8 (34.0-46.0) % MCV 91.7 (80.0-100.0) fL MCH 27.7 (25.0-35.0) pg MCHC 30.2 L (31.0-37.0) g/dL RDW 15.8 H (11.5-15.5) % Plt Count 292 (150-450) k/uL MPV 7.1 Neutrophils % 75 % Lymphocytes % 12 % Monocytes % 6 % Eosinophils % 4 % Basophils % 0 % Neutrophils # 6.0 (1.3-7.7) k/uL Lymphocytes # 0.9 L (1.0-4.8) k/uL Monocytes # 0.5 (0-1.0) k/uL Eosinophils # 0.3 (0-0.7) k/uL Basophils # 0.0 (0-0.2) k/uL Hypochromasia Moderate Sodium 141 (137-145) mmol/L Potassium 5.1 (3.5-5.1) mmol/L Chloride 106 (98-107) mmol/L Carbon Dioxide 29 (22-30) mmol/L Anion Gap 6 mmol/L BUN 29 H (7-17) mg/dL Creatinine 1.48 H (0.52-1.04) mg/dL Est GFR (CKD-EPI)AfAm 37 (>60 ml/min/1.73 sqM) Est GFR (CKD-EPI)NonAf 32 (>60 ml/min/1.73 sqM) Glucose 76 (74-99) mg/dL Plasma Lactic Acid Karlo 0.9 (0.7-2.0) mmol/L Calcium 8.3 L (8.4-10.2) mg/dL Total Bilirubin 0.4 (0.2-1.3) mg/dL AST 23 (14-36) U/L ALT 13 (4-34) U/L Alkaline Phosphatase 123 (38-126) U/L Total Protein 7.2 (6.3-8.2) g/dL Albumin 3.4 L (3.5-5.0) g/dL Disposition Clinical Impression: Ulcer of left heel, Cellulitis, Failure of outpatient treatment Disposition: ADMITTED IP TO THIS HOSP Condition: Stable Is patient prescribed a controlled substance at d/c from ED?: No Referrals: Alexx Olmstead MD [Primary Care Provider] - 1-2 days Time of Disposition: 19:30
[2023-04-17] MEDS ORDERED: VANCOMYCIN 1,500 MG in SODIUM CHLORIDE 0.9% 500 ML 500 ML IVPB ONE (20:00)
[2023-04-17] MEDS ORDERED: ONDANSETRON 4 MG/2 ML VIAL IVP PRN (22:49)
[2023-04-17] MEDS: ACETAMINOPHEN TAB 325 MG TAB PO PRN (23:07)
[2023-04-18] MEDS: SODIUM CHLORIDE 0.9% 1,000 ML IV SCH ×2 (01:42→14:09)
[2023-04-18] MEDS ORDERED: ACETAMINOPHEN TAB 325 MG TAB ONE (05:04)
[2023-04-18 06:02] LABS: Glucose,Whole Blood 71 mg/dL (70-110)
[2023-04-18] MEDS ORDERED: VANCOMYCIN 1,500 MG in SODIUM CHLORIDE 0.9% 500 ML 500 ML IVPB ONE (09:00)
--- NOTE | 2023-04-18 12:04 | P.CONS ---
History of Present Illness - Reason for Consult Consult date: 04/18/23 wound care - History of Present Illness This is an 83-year-old patient being seen by the wound care center for stage III pressure ulcer to the left calcaneus. Patient states that the ulceration has been there for approximately 1 year. He she has home care who comes in and does dressing changes and frequently sees Dr. Choe. Patient states that she seen Dr. Choe this morning who stated that he would be following patient and managing the ulceration. Ulceration measures approximately 2.5 x 3 x 0.2 cm with significant amount of eschar nonviable tissue and slough present. Minimal to no granulation noted. The wound edges are attached to the wound base no tunneling or undermining noted. Perirectal does show erythema. Review Of Systems: Constitutional: No fever, no chills, no night sweats. No weight change. No weakness, fatigue or lethargy. No daytime sleepiness. Integumentary:reports wounds, no lesions. No rash or pruritus. No unusual bruising. No change in hair or nails. Physical exam: General Appearance: Alert, cooperative, no distress, appears stated age. Skin: See HPI all other Skin color, texture, tugor normal, no rashes or lesions. Neurologic: Alert oriented x3 Assessment: 1. Stage III pressure ulcer left calcaneus 2. Diabetes with with foot ulceration 3. Hypertension 4. Hyperlipidemia Plan: 1. Consult for Dr. Choe to manage care. Apply honey alginate to the site, saline moistened gauze, dry gauze, rolled gauze and secure with paper tape. Change Monday. Thank you for the consultation any questions to contact the wound care center DNP note has been reviewed and discussed with Dr. Peter and the impression and plan of care has been directed as dictated. 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, VRE Year Discovered:: 08/27/21-VRE; 2013-MRSA MDRO Source:: Left Leg-VRE; left leg-MRSA Past Surgical History: Appendectomy, Section, Cholecystectomy, Heart Catheterization, Hysterectomy Additional Past Surgical History / Comment(s): pericardial window, surgery mir eyes for glaucoma, cyst removal on abdomen Past Anesthesia/Blood Transfusion Reactions: Blood Transfusion Reaction Additional Past Anesthesia/Blood Transfusion Reaction / Comm: reaction to blood transfusion 25-30 yrs ago-"I got red and they pulled it out" Past Psychological History: No Psychological Hx Reported Smoking Status: Former smoker Past Alcohol Use History: None Reported Past Drug Use History: None Reported - Past Family History Father Family Medical History: Cancer Brother(s) Family Medical History: Cancer Medications and Allergies Home Medications Medication Instructions Recorded Confirmed Type Aspirin [Adult Low Dose Aspirin EC] 81 mg PO DAILY 01/31/19 04/17/23 History Torsemide [Demadex] 20 mg PO BID 01/31/19 04/17/23 History Atorvastatin [Lipitor] 20 mg PO HS 08/27/21 04/17/23 History Docusate Sodium 250 mg PO DAILY 03/20/23 04/17/23 History Empagliflozin [Jardiance] 10 mg PO DAILY 03/20/23 04/17/23 History Metoprolol Succinate (ER) [Toprol 25 mg PO DAILY 03/20/23 04/17/23 History XL] Potassium Chloride ER [K-Dur 20] 20 meq PO BID 03/20/23 04/17/23 History Spironolactone [Aldactone] 12.5 mg PO DAILY 03/20/23 04/17/23 History Apixaban [Eliquis] 5 mg PO BID 04/17/23 04/17/23 History Allergies Allergy/AdvReac Type Severity Reaction Status Date / Time cefepime Allergy Anaphylaxis Verified 04/17/23 19:43 latex Allergy Rash/red Verified 04/17/23 19:43 skin Penicillins Allergy Rash/Hives Verified 04/17/23 19:43 Physical Exam Vitals: Vital Signs Temp Pulse Resp BP Pulse Ox 04/18/23 10:07 98.1 F 86 18 131/75 97 04/18/23 09:17 77 18 142/93 100 04/18/23 06:49 85 18 135/64 99 04/17/23 23:16 87 18 147/81 98 04/17/23 22:01 81 18 131/88 97 04/17/23 20:19 74 18 156/77 99 09/11/23 17:25 97.8 F 78 20 170/80 97 Intake and Output 04/17/23 04/18/23 04/18/23 22:59 06:59 14:59 Other: Weight 98.43 kg Results CBC & Chem 7: 04/17/23 18:39 04/17/23 18:39 Labs: Abnormal Lab Results - Last 24 Hours (Table) 04/17/23 04/17/23 Range/Units 18:39 18:39 MCHC 30.2 L (31.0-37.0) g/dL RDW 15.8 H (11.5-15.5) % Lymphocytes # 0.9 L (1.0-4.8) k/uL BUN 29 H (7-17) mg/dL Creatinine 1.48 H (0.52-1.04) mg/dL Calcium 8.3 L (8.4-10.2) mg/dL Albumin 3.4 L (3.5-5.0) g/dL Assessment and Plan (1) Stage III pressure ulcer of left heel Current Visit: Yes Status: Acute Code(s): L89.623 - PRESSURE ULCER OF LEFT HEEL, STAGE 3 SNOMED Code(s): 58047373917997 (2) Type 2 diabetes mellitus with foot ulcer Current Visit: Yes Status: Acute Code(s): E11.621 - TYPE 2 DIABETES MELLITUS WITH FOOT ULCER; L97.509 - NON-PRESSURE CHRONIC ULCER OTH PRT UNSP FOOT W UNSP SEVERITY SNOMED Code(s): 269426292 (3) Hypertension Current Visit: Yes Status: Acute Code(s): I10 - ESSENTIAL (PRIMARY) HYPERTENSION SNOMED Code(s): 41049629
--- NOTE | 2023-04-18 12:46 | P.HPIM ---
History of Present Illness 83-year-old pleasant female was sent in by PCP because of possible infection of the pressure ulcers in her foot patient has to diabetic foot ulcers and a stage III left calcaneal pressure pressure ulcers with increased pain and some redness around the area. Patient had history of back on simvastatin enterococcus and MRSA in the past an outpatient cultures is showing the same, wound care and infectious disease were consulted. Patient has creatinine 1.48 which is close to her baseline patient has stage IIIB chronic kidney disease patient does have history of congestive heart failure patient has a normal ejection fraction has diastolic dysfunction presently not volume overloaded. Patient does have any fever chills patient doesn't have any leukocytosis. X-ray of the foot did not show any osteomyelitis. Patient was started on vancomycin infectious disease was consulted. REVIEW OF SYSTEMS: CONSTITUTIONAL: No fever, no malaise, no fatigue. HEENT: No recent visual problems or hearing problems. Denied any sore throat. CARDIOVASCULAR: No chest pain, orthopnea, PND, no palpitations, no syncope. PULMONARY: No shortness of breath, no cough, no hemoptysis. GASTROINTESTINAL: No diarrhea, no nausea, no vomiting, no abdominal pain. NEUROLOGICAL: No headaches, no weakness, no numbness. HEMATOLOGICAL: Denies any bleeding or petechiae. GENITOURINARY: Denies any burning micturition, frequency, or urgency. MUSCULOSKELETAL/RHEUMATOLOGICAL: Denies any joint pain, swelling, or any muscle pain. ENDOCRINE: Denies any polyuria or polydipsia. The rest of the 14-point review of systems is negative. PHYSICAL EXAMINATION: GENERAL: The patient is alert and oriented x3, not in any acute distress. Well developed, well nourished. HEENT: Pupils are round and equally reacting to light. EOMI. No scleral icterus. No conjunctival pallor. Normocephalic, atraumatic. No pharyngeal erythema. No thyromegaly. CARDIOVASCULAR: S1 and S2 present. No murmurs, rubs, or gallops. PULMONARY: Chest is clear to auscultation, no wheezing or crackles. ABDOMEN: Soft, nontender, nondistended, normoactive bowel sounds. No palpable organomegaly. MUSCULOSKELETAL: No joint swelling or deformity. EXTREMITIES: No cyanosis, clubbing, or pedal edema. NEUROLOGICAL: Gross neurological examination did not reveal any focal deficits. SKIN: Lower extremity ulcers as mentioned above Assessment and plan -Possible infected left foot calcaneal ulcer: Patient has history of VRE and MRSA in the past, her antibiotics need to be switched to daptomycin or linezolid if she needs antibiotics infectious disease will evaluate the patient. -Congestive heart failure chronic diastolic dysfunction without any acute exacerbation, patient is euvolemic patient will be resumed on her home dose of Demadex and Aldactone of IV fluids will be discontinued Chronic kidney disease stage III: Vision is creatinine is at her baseline and- history of recent DVT for which patient is on 5 mg twice a day of eliquis which will be resumed and continued Abdomen type 2 diabetes mellitus: Resume home regimen along with sliding scale insulin and titrated as needed Accu-Cheks -Hypertension next and heparin hyperlipidemia -DVT prophylaxis: On anticoagulation 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, VRE Date of last positivie culture/infection: 08/27/21-VRE; 2013-MRSA MDRO Source:: Left Leg-VRE; left leg-MRSA Past Surgical History: Appendectomy, Section, Cholecystectomy, Heart Catheterization, Hysterectomy Additional Past Surgical History / Comment(s): pericardial window, surgery mir eyes for glaucoma, cyst removal on abdomen Past Anesthesia/Blood Transfusion Reactions: Blood Transfusion Reaction Additional Past Anesthesia/Blood Transfusion Reaction / Comment(s): reaction to blood transfusion 25-30 yrs ago-"I got red and they pulled it out" Past Psychological History: No Psychological Hx Reported Smoking Status: Former smoker Past Alcohol Use History: None Reported Past Drug Use History: None Reported - Past Family History Father Family Medical History: Cancer Brother(s) Family Medical History: Cancer Medications and Allergies Home Medications Medication Instructions Recorded Confirmed Type Aspirin [Adult Low Dose Aspirin EC] 81 mg PO DAILY 01/31/19 04/17/23 History Torsemide [Demadex] 20 mg PO BID 01/31/19 04/17/23 History Atorvastatin [Lipitor] 20 mg PO HS 08/27/21 04/17/23 History Docusate Sodium 250 mg PO DAILY 03/20/23 04/17/23 History Empagliflozin [Jardiance] 10 mg PO DAILY 03/20/23 04/17/23 History Metoprolol Succinate (ER) [Toprol 25 mg PO DAILY 03/20/23 04/17/23 History XL] Potassium Chloride ER [K-Dur 20] 20 meq PO BID 03/20/23 04/17/23 History Spironolactone [Aldactone] 12.5 mg PO DAILY 03/20/23 04/17/23 History Apixaban [Eliquis] 5 mg PO BID 04/17/23 04/17/23 History Allergies Allergy/AdvReac Type Severity Reaction Status Date / Time cefepime Allergy Anaphylaxis Verified 04/17/23 19:43 latex Allergy Rash/red Verified 04/17/23 19:43 skin Penicillins Allergy Rash/Hives Verified 04/17/23 19:43 Physical Exam Vitals: Vital Signs Temp Pulse Resp BP Pulse Ox 04/18/23 10:07 98.1 F 86 18 131/75 97 04/18/23 09:17 77 18 142/93 100 04/18/23 06:49 85 18 135/64 99 04/17/23 23:16 87 18 147/81 98 04/17/23 22:01 81 18 131/88 97 04/17/23 20:19 74 18 156/77 99 04/17/23 17:25 97.8 F 78 20 170/80 97 Intake and Output 04/17/23 04/18/23 04/18/23 22:59 06:59 14:59 Other: Weight 98.43 kg Results CBC & Chem 7: 04/17/23 18:39 04/17/23 18:39 Labs: Abnormal Lab Results - Last 24 Hours (Table) 04/17/23 04/17/23 Range/Units 18:39 18:39 MCHC 30.2 L (31.0-37.0) g/dL RDW 15.8 H (11.5-15.5) % Lymphocytes # 0.9 L (1.0-4.8) k/uL BUN 29 H (7-17) mg/dL Creatinine 1.48 H (0.52-1.04) mg/dL Calcium 8.3 L (8.4-10.2) mg/dL Albumin 3.4 L (3.5-5.0) g/dL
[2023-04-18] MEDS: METOPROLOL SUCCINATE (ER) 25 MG TAB.ER.24H PO SCH (13:09)
[2023-04-18] MEDS: ACETAMINOPHEN TAB 325 MG TAB PO PRN (16:01)
[2023-04-18] MEDS ORDERED: MORPHINE SULFATE 2 MG/ML SYRINGE IVP STA (16:55)
[2023-04-18 17:04] LABS: Glucose,Whole Blood 139 mg/dL (70-110)
[2023-04-18] MEDS: INSULIN ASPART (NovoLOG) 100 UNIT/ML VIAL SQ SCH ×2 (17:18→23:13)
[2023-04-18] MEDS ORDERED: DAPTOmycin 500 MG in SODIUM CHLORIDE 0.9% 50 ML IVPB SCH (18:00)
[2023-04-18 20:58] LABS: Glucose,Whole Blood 205 mg/dL (70-110)
[2023-04-18] MEDS ORDERED: ATORVASTATIN 20 MG TAB PO SCH (21:00)
[2023-04-18] MEDS ORDERED: POTASSIUM CHLORIDE ER 20 MEQ TAB.ER PO SCH (21:00)
[2023-04-18] MEDS ORDERED: APIXABAN 2.5 MG TABLET PO SCH (21:00)
[2023-04-18] MEDS: APIXABAN 5 MG TAB PO SCH (23:14)
[2023-04-18] MEDS: TORSEMIDE 20 MG TAB PO SCH (23:14)
--- NOTE | 2023-04-18 23:37 | P.CONS ---
History of Present Illness - Reason for Consult Consult date: 04/18/23 non healing foot wound Requesting physician: Moiz Mederos - Chief Complaint pain to left heel x few days - History of Present Illness Patient is a 83-year-old female with a past medical history significant for diabetes mellitus hypertension hyperlipidemia patient did have history of chronic nonhealing wound to the left heel area for the patient is currently treated in the outpatient setting by the visiting physician patient did have almost complete healing of her wound however the patient seem to be noncompliant with her offloading shoes and did have reopening of the wound to the left heel area patient has been complaining of more pain over the last few days patient describing the pain to be sharp throbbing almost 10 out of 10 in severity and painful to walk on it patient apparently did have a culture done by her visiting physician and per discussion with them he did grew VRE and MRSA with worsening pain the patient has been brought into the hospital on presentation to the hospital patient was afebrile and no fever has been recorded subsequently patient did have a normal white count creatinine is mildly elevated liver enzymes are normal patient did have x-ray of the foot no evidence for acute fracture healed wound without evidence for osteomyelitis the patient was started on vancomycin infectious disease was consulted for further management of antibiotic therapy Review of Systems Positive point has been mentioned in HPI rest of the systems are negative 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, VRE Year Discovered:: 08/27/21-VRE; 2013-MRSA MDRO Source:: Left Leg-VRE; left leg-MRSA Past Surgical History: Appendectomy, Section, Cholecystectomy, Heart Catheterization, Hysterectomy Additional Past Surgical History / Comment(s): pericardial window, surgery mir eyes for glaucoma, cyst removal on abdomen Past Anesthesia/Blood Transfusion Reactions: Blood Transfusion Reaction Additional Past Anesthesia/Blood Transfusion Reaction / Comm: reaction to blood transfusion 25-30 yrs ago-"I got red and they pulled it out" Past Psychological History: No Psychological Hx Reported Smoking Status: Former smoker Past Alcohol Use History: None Reported Past Drug Use History: None Reported - Past Family History Father Family Medical History: Cancer Brother(s) Family Medical History: Cancer Medications and Allergies Home Medications Medication Instructions Recorded Confirmed Type Aspirin [Adult Low Dose Aspirin EC] 81 mg PO DAILY 01/31/19 04/17/23 History Torsemide [Demadex] 20 mg PO BID 01/31/19 04/17/23 History Atorvastatin [Lipitor] 20 mg PO HS 08/27/21 04/17/23 History Docusate Sodium 250 mg PO DAILY 03/20/23 04/17/23 History Empagliflozin [Jardiance] 10 mg PO DAILY 03/20/23 04/17/23 History Metoprolol Succinate (ER) [Toprol 25 mg PO DAILY 03/20/23 04/17/23 History XL] Potassium Chloride ER [K-Dur 20] 20 meq PO BID 03/20/23 04/17/23 History Spironolactone [Aldactone] 12.5 mg PO DAILY 03/20/23 04/17/23 History Apixaban [Eliquis] 5 mg PO BID 04/17/23 04/17/23 History HYDROcodone/APAP 5-325MG [[place] 1 each PO Q6HR PRN 3 Days #12 tab 04/24/23 Rx 5-325] Lactulose [Cephulac] 30 gm PO BID PRN #250 ml 04/24/23 Rx Simethicone Chew [Mylicon Chew] 40 mg PO QID #16 tab 04/24/23 Rx Tamsulosin [Flomax] 0.4 mg PO PC-BRKFST #30 cap 04/24/23 Rx Allergies Allergy/AdvReac Type Severity Reaction Status Date / Time cefepime Allergy Anaphylaxis Verified 04/17/23 19:43 latex Allergy Rash/red Verified 04/17/23 19:43 skin Penicillins Allergy Rash/Hives Verified 04/17/23 19:43 Physical Exam Vitals: Vital Signs Temp Pulse Resp BP Pulse Ox 04/18/23 10:07 98.1 F 86 18 131/75 97 04/18/23 09:17 77 18 142/93 100 04/18/23 06:49 85 18 135/64 99 04/17/23 23:16 87 18 147/81 98 04/17/23 22:01 81 18 131/88 97 04/17/23 20:19 74 18 156/77 99 04/17/23 17:25 97.8 F 78 20 170/80 97 Intake and Output 04/17/23 04/18/23 04/18/23 22:59 06:59 14:59 Other: Weight 98.43 kg GENERAL DESCRIPTION: Elderly female lying in bed, no distress. No tachypnea or accessory muscle of respiration use. HEENT: Shows Pallor , no scleral icterus. Oral mucous membrane is dry. NECK: Trachea central, no thyromegaly. LUNGS: Unlabored breathing. clear to auscultation bilaterally HEART: S1, S2, regular rate and rhythm. ABDOMEN: Soft, no tenderness , guarding or rigidity EXTREMITIES: Left heel wound with some slough tissue surrounding redness no foul-smelling drainage SKIN: No rash, no masses palpable. NEUROLOGICAL: The patient is awake, alert, oriented x3, mood and affect normal. Results CBC & Chem 7: 04/24/23 11:11 04/24/23 11:11 Labs: Abnormal Lab Results - Last 24 Hours (Table) 04/17/23 04/17/23 Range/Units 18:39 18:39 MCHC 30.2 L (31.0-37.0) g/dL RDW 15.8 H (11.5-15.5) % Lymphocytes # 0.9 L (1.0-4.8) k/uL BUN 29 H (7-17) mg/dL Creatinine 1.48 H (0.52-1.04) mg/dL Calcium 8.3 L (8.4-10.2) mg/dL Albumin 3.4 L (3.5-5.0) g/dL Assessment and Plan (1) Allergy to multiple antibiotics Status: Acute Code(s): Z88.1 - ALLERGY STATUS TO OTHER ANTIBIOTIC AGENTS SNOMED Code(s): 803832858 (2) Failure of outpatient treatment Status: Acute Code(s): Z78.9 - OTHER SPECIFIED HEALTH STATUS SNOMED Code(s): 246462821 (3) Left leg cellulitis Status: Acute Code(s): L03.116 - CELLULITIS OF LEFT LOWER LIMB SNOMED Code(s): 303347324 (4) Stage III pressure ulcer of left heel Status: Acute Code(s): L89.623 - PRESSURE ULCER OF LEFT HEEL, STAGE 3 SNOMED Code(s): 47668157701468 Plan: 1patient with a chronic nonhealing wound to the left heel area now with concern for secondary cellulitis in this patient outpatient culture has been positive f or VRE and MRSA. 2patient with multiple antibiotic allergies that would limit the number of antibiotics safe to use 3mild renal insufficiency risk of nephrotoxicity from vancomycin 4discontinue vancomycin 5check inflammatory markers 6continue local wound care per the wound care team 7start the patient on daptomycin 6 mg/kg daily as clinical suspicion is high for deep infection such as osteomyelitis 8check a bone scan We will follow on clinical condition and cultures to further adjust medication if needed Thank you for this consultation we will follow the patient along with you Dictation was produced using [employer] dictation software. please excuse any grammatical, word or spelling errors. Time with Patient: Greater than 30
[2023-04-19] MEDS: INSULIN ASPART (NovoLOG) 100 UNIT/ML VIAL SQ SCH ×4 (06:01→20:33)
[2023-04-19 06:03] LABS: Glucose,Whole Blood 102 mg/dL (70-110)
[2023-04-19] MEDS: ASPIRIN 81 MG PO SCH (09:31)
[2023-04-19] MEDS: APIXABAN 5 MG TAB PO SCH ×2 (09:31→20:50)
[2023-04-19] MEDS: METOPROLOL SUCCINATE (ER) 25 MG TAB.ER.24H PO SCH (09:32)
[2023-04-19] MEDS: TORSEMIDE 20 MG TAB PO SCH ×2 (09:33→20:50)
[2023-04-19] MEDS: DAPAGLIFLOZIN PROPANEDIOL 5 MG TABLET PO SCH (09:33)
[2023-04-19] MEDS: DOCUSATE 100 MG CAP PO SCH (09:33)
[2023-04-19] MEDS: SPIRONOLACTONE 25 MG TAB PO SCH (09:34)
[2023-04-19] MEDS ORDERED: LIDOCAINE 2% (PF) 20 MG/ML 5 ML VIAL ONE (11:00)
[2023-04-19] MEDS ORDERED: LIDOCAINE 1% INJ 10MG/ML (20 ML MDV) ONE (11:00)
[2023-04-19 11:16] LABS: Glucose,Whole Blood 191 mg/dL (70-110)
[2023-04-19 11:38] LABS: BUN/Creat Ratio 14.64 Ratio (12.00-20.00); Blood Urea Nitrogen 20.5 mg/dL (9.0-27.0); Calcium 8.3 mg/dL (8.7-10.3); Carbon Dioxide 22.9 mmol/L (21.6-31.8); Chloride 107 mmol/L (96-109); Glucose 104 mg/dL (70-110); Potassium 4.7 mmol/L (3.5-5.5); Sodium 140 mmol/L (135-145)
[2023-04-19 12:52] VITALS: BMI 34.0
--- NOTE | 2023-04-19 14:55 | NM ---
EXAMINATION TYPE: NM bone 3 phase DATE OF EXAM: 04/19/2023 COMPARISON: NONE CLINICAL INDICATION: Female, 83 years old with history of L heel ulcer osteomyelitis; Triple phase bone scintigraphy was performed following the injection of 22.3 mCi Tc 99m MDP. Immedia te images and 5.25 hours post injection images acquired. FINDINGS: Blood flow: There is slight increased radiotracer within the left heel in relation to the right foot. Blood pool: There is increased radiotracer within the heel pad of the left foot compared to the right . Slight increased blood pool is through the left lower extremity compared to the right Static images: There is increased radiotracer accumulation within the midfoot bilaterally most likely degenerative in nature. Subtle increased uptake is in the region of the left heel pad. IMPRESSION: Increased uptake on blood flow and blood pool with some subtle uptake on static images. Findings appe ar more suggestive for soft tissue infection although early osteomyelitis should be considered. Follo w-up can be performed.
--- NOTE | 2023-04-19 15:38 | XR ---
EXAMINATION TYPE: XR abdomen 2V DATE OF EXAM: 04/19/2023 COMPARISON: None INDICATION: Abdominal distention TECHNIQUE: Abdomen is examined in the supine and upright views. FINDINGS: No suspicious air-fluid levels are evident. Prominent air-filled loops of colon are present. No mass effect is evident. Psoas margins as visualized are normal. No organomegaly is present. IMPRESSION: 1. Prominent air-filled loops of colon. Correlate for colonic ileus. Follow-up can be performed.
[2023-04-19 16:15] LABS: Glucose,Whole Blood 209 mg/dL (70-110)
[2023-04-19] MEDS ORDERED: SILVER NITRATE APPLICATOR 1 EACH STICK..EA. TOPICAL STA (16:49)
[2023-04-19] MEDS: HYDROcodone/APAP 5-325MG 1 EACH TAB PO PRN ×2 (16:53→22:23)
--- NOTE | 2023-04-19 17:28 | P.GSCN ---
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 Bone scan shows soft tissue infection early osteo-patient also has history of diabetes hypertension Chest examination chest is clear few rhonchi at the lung bases first and second sound present Abdomen protuberant Vascular femorals are 1+ PTDP nonpalpable patient has some Brown induration of both lower extremity left heel has a wound measurement is 5 x 3 half Plan is debridement of the wound and deep culture 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, VRE Year Discovered:: 08/27/21-VRE; 2013-MRSA MDRO Source:: Left Leg-VRE; left leg-MRSA Past Surgical History: Appendectomy, Section, Cholecystectomy, Heart Catheterization, Hysterectomy Additional Past Surgical History / Comment(s): pericardial window, surgery mir eyes for glaucoma, cyst removal on abdomen Past Anesthesia/Blood Transfusion Reactions: Blood Transfusion Reaction Additional Past Anesthesia/Blood Transfusion Reaction / Comm: reaction to blood transfusion 25-30 yrs ago-"I got red and they pulled it out" Past Psychological History: No Psychological Hx Reported Smoking Status: Former smoker Past Alcohol Use History: None Reported Past Drug Use History: None Reported - Past Family History Father Family Medical History: Cancer Brother(s) Family Medical History: Cancer Medications and Allergies Home Medications Medication Instructions Recorded Confirmed Type Aspirin [Adult Low Dose Aspirin EC] 81 mg PO DAILY 01/31/19 04/17/23 History Torsemide [Demadex] 20 mg PO BID 01/31/19 04/17/23 History Atorvastatin [Lipitor] 20 mg PO HS 08/27/21 04/17/23 History Docusate Sodium 250 mg PO DAILY 03/20/23 04/17/23 History Empagliflozin [Jardiance] 10 mg PO DAILY 03/20/23 04/17/23 History Metoprolol Succinate (ER) [Toprol 25 mg PO DAILY 03/20/23 04/17/23 History XL] Potassium Chloride ER [K-Dur 20] 20 meq PO BID 03/20/23 04/17/23 History Spironolactone [Aldactone] 12.5 mg PO DAILY 03/20/23 04/17/23 History Apixaban [Eliquis] 5 mg PO BID 04/17/23 04/17/23 History Allergies Allergy/AdvReac Type Severity Reaction Status Date / Time cefepime Allergy Anaphylaxis Verified 04/17/23 19:43 latex Allergy Rash/red Verified 04/17/23 19:43 skin Penicillins Allergy Rash/Hives Verified 04/17/23 19:43 Surgical - Exam Vital Signs Temp Pulse Resp BP Pulse Ox 97.8 F 78 20 170/80 97 04/17/23 17:25 04/17/23 17:25 04/17/23 17:25 04/17/23 17:25 04/17/23 17:25 Results - Labs 04/17/23 18:39 04/19/23 06:43 Abnormal Lab Results - Last 24 Hours (Table) 04/18/23 04/19/23 04/19/23 Range/Units 20:53 06:43 06:43 ESR 92 H (0-30) mm/Hr Est GFR (CKD-EPI) 37 L (>=60) POC Glucose (mg/dL) 205 H (70-110) mg/dL Calcium 8.3 L (8.7-10.3) mg/dL C-Reactive Protein 9.00 H (0.00-0.80) mg/dL 04/19/23 04/19/23 Range/Units 11:09 16:13 ESR (0-30) mm/Hr Est GFR (CKD-EPI) (>=60) POC Glucose (mg/dL) 191 H 209 H (70-110) mg/dL Calcium (8.7-10.3) mg/dL C-Reactive Protein (0.00-0.80) mg/dL Microbiology - Last 24 Hours (Table) 04/17/23 18:35 Blood Culture - Preliminary Blood 04/17/23 18:39 Gram Stain - Preliminary Foot - Left Diabetes panel 04/19/23 Range/Units 06:43 Sodium 140 (135-145) mmol/L Potassium 4.7 (3.5-5.5) mmol/L Chloride 107 (96-109) mmol/L Carbon Dioxide 22.9 (21.6-31.8) mmol/L BUN 20.5 (9.0-27.0) mg/dL Creatinine 1.4 (0.6-1.5) mg/dL Glucose 104 (70-110) mg/dL Calcium 8.3 L (8.7-10.3) mg/dL Calcium panel 04/19/23 Range/Units 06:43 Calcium 8.3 L (8.7-10.3) mg/dL Pituitary panel 04/19/23 Range/Units 06:43 Sodium 140 (135-145) mmol/L Potassium 4.7 (3.5-5.5) mmol/L Chloride 107 (96-109) mmol/L Carbon Dioxide 22.9 (21.6-31.8) mmol/L BUN 20.5 (9.0-27.0) mg/dL Creatinine 1.4 (0.6-1.5) mg/dL Glucose 104 (70-110) mg/dL Calcium 8.3 L (8.7-10.3) mg/dL Adrenal panel 04/19/23 Range/Units 06:43 Sodium 140 (135-145) mmol/L Potassium 4.7 (3.5-5.5) mmol/L Chloride 107 (96-109) mmol/L Carbon Dioxide 22.9 (21.6-31.8) mmol/L BUN 20.5 (9.0-27.0) mg/dL Creatinine 1.4 (0.6-1.5) mg/dL Glucose 104 (70-110) mg/dL Calcium 8.3 L (8.7-10.3) mg/dL
--- NOTE | 2023-04-19 17:31 | P.PCN ---
Description of Procedure: Preoperative diagnoses left heel measurement is 5 by 2 x 2 CM Postop 5 x 3 and have by 0.5 cm Procedure the left heel were prepped and draped applied usual manner 1% lidocaine for infected using sharp knife we excise the plantar aspect wound down to separate tissue and the fact all the different layers tissue was excised with knife there were some bleeding point filter controlled by silver nitrate stick medihoney gel applied to the wound and pressure dressing was applied Plan is if tissue was sent for aerobic anaerobic culture patient is an IV antibiotic under care of orifices disease dressing should be changed with medihoney gel daily
[2023-04-19] MEDS ORDERED: bisacodyL 10 MG SUPP RECTAL STA (18:45)
--- NOTE | 2023-04-19 18:52 | P.PN ---
Subjective Progress Note Date: 04/19/23 83-year-old pleasant female was sent in by PCP because of possible infection of the pressure ulcers in her foot patient has to diabetic foot ulcers and a stage III left calcaneal pressure pressure ulcers with increased pain and some redness around the area. Patient had history of back on simvastatin enterococcus and MRSA in the past an outpatient cultures is showing the same, wound care and infectious disease were consulted. Patient has creatinine 1.48 which is close to her baseline patient has stage IIIB chronic kidney disease patient does have history of congestive heart failure patient has a normal ejection fraction has diastolic dysfunction presently not volume overloaded. Patient does have any fever chills patient doesn't have any leukocytosis. X-ray of the foot did not show any osteomyelitis. Patient was started on vancomycin infectious disease was consulted. 04/19/2023 Patient is evaluated today on the medical floor. Reports mild discomfort to the left heel. Planned for surgical debridement with vascular. Wound cultures pending. Continues on IV daptomycin. Patient had a bone scan today showing increased uptake on blood flow and blood pool with some subtle uptake on static images. Suggestive of soft tissue infection unable to rule out early ostemyelitis. ID following. Patient noted to have abdominal distention and no BM since monday. Bowel sounds are hypoactive. Concern for obstruction or ileus. Review of Systems Constitutional: Denied any fatigue denied any fever. Cardio vascular: denied any chest pain, palpitations Gastrointestinal: Reports no BM, reports bloating Pulmonary: Denied any shortness of breath cough Neurologic denied any new focal deficits All inpatient medications were reviewed and appropriate changes in these medications as dictated in the interval history and assessment and plan. PHYSICAL EXAMINATION: GENERAL: The patient is alert and oriented x3, not in any acute distress. Well developed, well nourished. HEENT: Pupils are round and equally reacting to light. EOMI. No scleral icterus. No conjunctival pallor. Normocephalic, atraumatic. No pharyngeal erythema. No thyromegaly. CARDIOVASCULAR: S1 and S2 present. No murmurs, rubs, or gallops. PULMONARY: Chest is clear to auscultation, no wheezing or crackles. ABDOMEN: Soft, nontender, distended, hypoactive bowel sounds. Dull. No palpable organomegaly. MUSCULOSKELETAL: No joint swelling or deformity. EXTREMITIES: No cyanosis, clubbing, or pedal edema. NEUROLOGICAL: Gross neurological examination did not reveal any focal deficits. SKIN: Lower extremity ulcers as mentioned above Assessment and plan -Possible infected left foot calcaneal ulcer: Patient has history of VRE and MRSA in the past, on IV daptomycin, ID following cultures and vascular planning for surgical debridement today. -Abdominal distention and constipation rule out ileus/obstruction abdominal xray will be ordered Continue on bowel regimen. -Congestive heart failure chronic diastolic dysfunction without any acute exacerbation, patient is euvolemic remains on home diuretics. -Chronic kidney disease stage III: creatinine at baseline -History of recent DVT for which patient is on 5 mg twice a day of eliquis -Type 2 diabetes mellitus: Resume home regimen along with sliding scale insulin and titrated as needed Accu-Cheks -Hypertension -History hyperlipidemia -DVT prophylaxis: On anticoagulation GI prophylaxis Full Code The impression and plan of care has been dictated by Carmela Giordano, Nurse Practitioner as directed. Dr. Jesús MD I have performed a history and physical examination and medical decision making of this patient, discussed the same with the dictator, and agree with the dictators assessment and plan as written, documented as a scribe. Based on total visit time, I have performed more than 50% of this visit. Objective - Vital Signs Vital signs: Vital Signs Temp 98.4 F 04/19/23 02:06 Pulse 76 04/19/23 02:06 Resp 18 04/19/23 02:06 BP 150/69 04/19/23 02:06 Pulse Ox 97 04/19/23 02:06 FiO2 Intake & Output 04/18/23 04/19/23 04/19/23 18:59 06:59 18:59 Output Total 1750 Balance -1750 Weight 98.43 kg Output: Urine 1750 Other: Voiding Method External Catheter - Labs CBC & Chem 7: 04/17/23 18:39 04/19/23 06:43 Labs: Abnormal Lab Results - Last 24 Hours (Table) 04/18/23 04/18/23 Range/Units 17:03 20:53 POC Glucose (mg/dL) 139 H 205 H (70-110) mg/dL Microbiology - Last 24 Hours (Table) 04/17/23 18:35 Blood Culture - Preliminary Blood 04/17/23 18:39 Gram Stain - Preliminary Foot - Left Assessment and Plan Time with Patient: Less than 30
[2023-04-19 20:17] LABS: Glucose,Whole Blood 142 mg/dL (70-110)
[2023-04-20 05:41] LABS: Glucose,Whole Blood 118 mg/dL (70-110)
[2023-04-20] MEDS: INSULIN ASPART (NovoLOG) 100 UNIT/ML VIAL SQ SCH ×4 (05:47→21:39)
--- NOTE | 2023-04-20 07:54 | P.PN ---
Subjective Progress Note Date: 04/19/23 Principal diagnosis: L leg cellulitis and left heel infected wound Patient is a 83-year-old female with a past medical history significant for diabetes mellitus hypertension hyperlipidemia patient did have history of chronic nonhealing wound to the left heel area for the patient is currently treated in the outpatient setting by the visiting physician, patient was recently noticed to have reopening of her left heel wound culture were done in the outpatient setting that grew VRE patient subsequently presented to hospital with worsening pain to the left heel along with swelling redness to the left leg. On today's evaluation that is 04/19/2023, the patient denies having any fever or any chills, the patient is breathing comfortably, the patient denies having any chest pain shortness of breath or cough no nausea vomiting no abdominal pain or diarrhea, pain to the left heel has slightly decreased in intensity. Patient did have a creatinine 1.4 sed rate is 92 CRP is 9.0 blood and local cultures currently pending bone scan is pending Objective - Vital Signs Vital signs: Vital Signs Temp 98.4 F 04/19/23 12:04 Pulse 67 04/19/23 12:04 Resp 16 04/19/23 12:04 BP 118/53 04/19/23 12:04 Pulse Ox 95 04/19/23 12:04 FiO2 Intake & Output 04/18/23 04/19/23 04/19/23 18:59 06:59 18:59 Output Total 1750 Balance -1750 Weight 98.43 kg 98.43 kg Output: Urine 1750 Other: Voiding Method External Catheter Incontinent External Catheter - Exam GENERAL DESCRIPTION: Elderly female lying in bed in no distress RESPIRATORY SYSTEM: Unlabored breathing , decreased breath sounds at bases HEART: S1 S2 regular rate and rhythm ,no loud murmurs ABDOMEN: Soft , no tenderness EXTREMITIES: Left heel wound with some necrotic area surrounding swelling no foul-smelling drainage. - Labs CBC & Chem 7: 04/17/23 18:39 04/19/23 06:43 Labs: Abnormal Lab Results - Last 24 Hours (Table) 04/18/23 04/18/23 04/19/23 Range/Units 17:03 20:53 06:43 ESR (0-30) mm/Hr Est GFR (CKD-EPI) 37 L (>=60) POC Glucose (mg/dL) 139 H 205 H (70-110) mg/dL Calcium 8.3 L (8.7-10.3) mg/dL C-Reactive Protein 9.00 H (0.00-0.80) mg/dL 04/19/23 04/19/23 Range/Units 06:43 11:09 ESR 92 H (0-30) mm/Hr Est GFR (CKD-EPI) (>=60) POC Glucose (mg/dL) 191 H (70-110) mg/dL Calcium (8.7-10.3) mg/dL C-Reactive Protein (0.00-0.80) mg/dL Microbiology - Last 24 Hours (Table) 04/17/23 18:35 Blood Culture - Preliminary Blood 04/17/23 18:39 Gram Stain - Preliminary Foot - Left Assessment and Plan (1) Left leg cellulitis Current Visit: Yes Status: Acute Code(s): L03.116 - CELLULITIS OF LEFT LOWER LIMB SNOMED Code(s): 118385305 (2) Allergy to multiple antibiotics Current Visit: Yes Status: Acute Code(s): Z88.1 - ALLERGY STATUS TO OTHER ANTIBIOTIC AGENTS SNOMED Code(s): 991354211 (3) VRE (vancomycin resistant enterococcus) culture positive Current Visit: Yes Status: Acute Code(s): Z22.39 - CARRIER OF OTHER SPECIFIED BACTERIAL DISEASES SNOMED Code(s): 204534317 (4) Stage III pressure ulcer of left heel Current Visit: Yes Status: Acute Code(s): L89.623 - PRESSURE ULCER OF LEFT HEEL, STAGE 3 SNOMED Code(s): 00614592710672 Plan: 1patient with a 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 2patient with multiple antibiotic allergies that would limit the number of antibiotics safe to use 3mild renal insufficiency risk of nephrotoxicity from vancomycin 4patient did have elevated inflammatory markers, bone scan is currently pending. 5we will wait for the surgery evaluation debridement and deep culture. 6continue patient on daptomycin while waiting for the work-up to be completed and monitor clinical course closely Dictation was produced using [employer] dictation software. please excuse any grammatical, word or spelling errors.
[2023-04-20] MEDS: DAPAGLIFLOZIN PROPANEDIOL 5 MG TABLET PO SCH (08:29)
[2023-04-20] MEDS: TORSEMIDE 20 MG TAB PO SCH ×2 (08:29→21:38)
[2023-04-20] MEDS: SPIRONOLACTONE 25 MG TAB PO SCH (08:29)
[2023-04-20] MEDS: HYDROcodone/APAP 5-325MG 1 EACH TAB PO PRN (08:30)
[2023-04-20] MEDS: APIXABAN 5 MG TAB PO SCH ×2 (08:31→21:39)
[2023-04-20] MEDS: METOPROLOL SUCCINATE (ER) 25 MG TAB.ER.24H PO SCH (08:31)
[2023-04-20] MEDS: DOCUSATE 100 MG CAP PO SCH (08:31)
[2023-04-20] MEDS: ASPIRIN 81 MG PO SCH (08:31)
[2023-04-20] MEDS ORDERED: IOPAMIDOL CONTRAST (ORAL USE) VIAL PO PRN (10:50)
[2023-04-20 11:21] LABS: Glucose,Whole Blood 202 mg/dL (70-110)
[2023-04-20] MEDS: IOPAMIDOL CONTRAST (ORAL USE) VIAL PO PRN ×2 (13:35→14:31)
--- NOTE | 2023-04-20 14:56 | P.PN ---
Subjective Progress Note Date: 04/20/23 Principal diagnosis: L leg cellulitis and left heel infected wound Patient is a 83-year-old female with a past medical history significant for diabetes mellitus hypertension hyperlipidemia patient did have history of chronic nonhealing wound to the left heel area for the patient is currently treated in the outpatient setting by the visiting physician, patient was recently noticed to have reopening of her left heel wound culture were done in the outpatient setting that grew VRE patient subsequently presented to hospital with worsening pain to the left heel along with swelling redness to the left leg. Patient did have a bedside debridement of the left heel wound by vascular surgery did not mention extending down to the bone On today's evaluation that is 04/20/2023, the patient is afebrile, the patient is breathing comfortably , the patient denies chest pain and no significant cough, the patient denies nausea and vomiting no abdominal pain and no diarrhea,, the patient pain to the left heel has slightly decreased in intensity. Patient did have a creatinine 1.4 sed rate is 92 CRP is 9.0 as of 04/19/2023, no blood draw today blood and local cultures currently pending bone scan is also still myelitis left heel cannot be ruled out Objective - Vital Signs Vital signs: Vital Signs Temp 98.9 F 04/20/23 07:34 Pulse 73 04/20/23 07:34 Resp 18 04/20/23 07:34 BP 122/68 04/20/23 07:34 Pulse Ox 97 04/20/23 07:34 FiO2 Intake & Output 04/19/23 04/20/23 04/20/23 18:59 06:59 18:59 Output Total 1400 1200 Balance -1400 -1200 Weight 98.43 kg Output: Urine 1400 1200 Other: Voiding Method Incontinent External Catheter Incontinent External Catheter External Catheter # Bowel Movements 1 - Exam GENERAL DESCRIPTION: Elderly female lying in bed in no distress RESPIRATORY SYSTEM: Unlabored breathing , decreased breath sounds at bases HEART: S1 S2 regular rate and rhythm ,no loud murmurs ABDOMEN: Soft , no tenderness EXTREMITIES: Left heel wound with some necrotic area surrounding swelling no foul-smelling drainage. - Labs CBC & Chem 7: 04/17/23 18:39 04/19/23 06:43 Labs: Abnormal Lab Results - Last 24 Hours (Table) 04/19/23 04/19/23 04/20/23 Range/Units 16:13 20:12 05:32 POC Glucose (mg/dL) 209 H 142 H 118 H (70-110) mg/dL 04/20/23 Range/Units 11:19 POC Glucose (mg/dL) 202 H (70-110) mg/dL Microbiology - Last 24 Hours (Table) 04/17/23 18:35 Blood Culture - Preliminary Blood Assessment and Plan (1) Left leg cellulitis Current Visit: Yes Status: Acute Code(s): L03.116 - CELLULITIS OF LEFT LOWER LIMB SNOMED Code(s): 858332110 (2) Allergy to multiple antibiotics Current Visit: Yes Status: Acute Code(s): Z88.1 - ALLERGY STATUS TO OTHER ANTIBIOTIC AGENTS SNOMED Code(s): 102422571 (3) VRE (vancomycin resistant enterococcus) culture positive Current Visit: Yes Status: Acute Code(s): Z22.39 - CARRIER OF OTHER SPECIFIED BACTERIAL DISEASES SNOMED Code(s): 849551007 (4) Stage III pressure ulcer of left heel Current Visit: Yes Status: Acute Code(s): L89.623 - PRESSURE ULCER OF LEFT HEEL, STAGE 3 SNOMED Code(s): 93978617725519 Plan: 1patient with a 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 2patient with multiple antibiotic allergies that would limit the number of antibiotics safe to use 3mild renal insufficiency risk of nephrotoxicity from vancomycin 4patient did have elevated inflammatory markers, bone scan cannot rule out Osteomyelitis at the left heel 5patient tocontinue with daptomycin while waiting for the culture done by vascular surgery to be finalize to determine her discharge antibiotics patient will likely need a PICC line for outpatient IV antibiotics Dictation was produced using [employer] dictation software. please excuse any grammatical, word or spelling errors.
--- NOTE | 2023-04-20 15:19 | P.GSCN ---
History of Present Illness Consult date: 04/20/23 History of present illness: CHIEF COMPLAINT: Left foot ulcer HISTORY OF PRESENT ILLNESS: This is a 83-year-old female who presented with a nonhealing wound of the left foot she is status post debridement of left heel ulcer with vascular surgical service. Patient had abdominal distention yesterday and abdominal x-ray ordered which did show evidence of an ileus. Surg ical service consulted in regards to ileus. She did receive a duplex suppository and did have a large bowel movement this morning. Since then patient reports improvement in her abdominal distention. She still reports abdominal bloating. But reports that her abdomen is softer. Denies abdominal p ain. Denies any nausea vomiting. Past surgical history does include appendectomy , cholecystectomy, hysterectomy and pericardial window. Patient is on Eliquis for DVT of the leg. Patient does have history of constipation and takes stool softeners at home and uses prune juice. PAST MEDICAL HISTORY: Diabetes Mellitus, Hyperlipidemia, Hypertension, Renal Disease, Skin Disorder, hiatal hernia, constipation, hx pancreatitis, anemia years ago, stage 1 kidney failure, cellulitis mir legs from knee down, detached retina rt eye, dvt PAST SURGICAL HISTORY: See below MEDICATIONS: See below ALLERGIES: See below SOCIAL HISTORY: No illicit drug use. REVIEW OF SYSTEMS: CONSTITUTIONAL: Denies fever or chills. HEENT: Denies blurred vision, vision changes, or eye pain. Denies hemoptysis CARDIOVASCULAR: Denies chest pain or pressure. RESPIRATORY: No shortness of breath. GASTROINTESTINAL: See HPI for pertinent findings HEMATOLOGIC: Denies bleeding disorders. GENITOURINARY: Denies any blood in urine or increased urinary frequency. SKIN: Denies pruitis. Denies rash. PHYSICAL EXAM: VITAL SIGNS: Reviewed GENERAL: Well-developed in no acute distress. ABDOMEN: Soft. Distended. Nontender. NEUROLOGIC: Alert and oriented. Cranial nerves II through XII grossly intact. LABORATORY DATA: WBC 7.9 Hgb 12.9 and platelets 292 Sodium 140 potassium 4.7 creatinine 1.4 IMAGING: Abdominal x-ray prominent air-filled loops of colon. Correlate for colonic ileus. ASSESSMENT: 1. Abdominal distention with evidence of ileus on x-ray 2. Diabetic heel ulcer status post debridement with vascular surgery PLAN: -Computed tomography scan abdomen and pelvis with oral contrast ordered for further evaluation of abdominal distention -Continue treatment of diabetic heel ulcer -Continue stool softeners -Further recommendations forthcoming per CAT scan results Physician Artificial Marble Worker note has been reviewed by physician. Signing provider agrees with the documented findings, assessment, and plan of care. 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, VRE Year Discovered:: 08/27/21-VRE; 2013-MRSA MDRO Source:: Left Leg-VRE; left leg-MRSA Past Surgical History: Appendectomy, Section, Cholecystectomy, Heart Catheterization, Hysterectomy Additional Past Surgical History / Comment(s): pericardial window, surgery mir eyes for glaucoma, cyst removal on abdomen Past Anesthesia/Blood Transfusion Reactions: Blood Transfusion Reaction Additional Past Anesthesia/Blood Transfusion Reaction / Comm: reaction to blood transfusion 25-30 yrs ago-"I got red and they pulled it out" Past Psychological History: No Psychological Hx Reported Smoking Status: Former smoker Past Alcohol Use History: None Reported Past Drug Use History: None Reported - Past Family History Father Family Medical History: Cancer Brother(s) Family Medical History: Cancer Medications and Allergies Home Medications Medication Instructions Recorded Confirmed Type Aspirin [Adult Low Dose Aspirin EC] 81 mg PO DAILY 01/31/19 04/17/23 History Torsemide [Demadex] 20 mg PO BID 01/31/19 04/17/23 History Atorvastatin [Lipitor] 20 mg PO HS 08/27/21 04/17/23 History Docusate Sodium 250 mg PO DAILY 03/20/23 04/17/23 History Empagliflozin [Jardiance] 10 mg PO DAILY 03/20/23 04/17/23 History Metoprolol Succinate (ER) [Toprol 25 mg PO DAILY 03/20/23 04/17/23 History XL] Potassium Chloride ER [K-Dur 20] 20 meq PO BID 03/20/23 04/17/23 History Spironolactone [Aldactone] 12.5 mg PO DAILY 03/20/23 04/17/23 History Apixaban [Eliquis] 5 mg PO BID 04/17/23 04/17/23 History Allergies Allergy/AdvReac Type Severity Reaction Status Date / Time cefepime Allergy Anaphylaxis Verified 04/17/23 19:43 latex Allergy Rash/red Verified 04/17/23 19:43 skin Penicillins Allergy Rash/Hives Verified 04/17/23 19:43 Surgical - Exam Vital Signs Temp Pulse Resp BP Pulse Ox 97.8 F 78 20 170/80 97 04/17/23 17:25 04/17/23 17:25 04/17/23 17:25 04/17/23 17:25 04/17/23 17:25 Results - Labs 04/17/23 18:39 04/19/23 06:43 Abnormal Lab Results - Last 24 Hours (Table) 04/19/23 04/19/23 04/20/23 Range/Units 16:13 20:12 05:32 POC Glucose (mg/dL) 209 H 142 H 118 H (70-110) mg/dL 04/20/23 Range/Units 11:19 POC Glucose (mg/dL) 202 H (70-110) mg/dL Microbiology - Last 24 Hours (Table) 04/17/23 18:35 Blood Culture - Preliminary Blood
--- NOTE | 2023-04-20 15:36 | CT ---
EXAMINATION TYPE: CT abdomen pelvis wo con DATE OF EXAM: 04/20/2023 COMPARISON: None HISTORY: abdominal distention CT DLP: 1146.4 mGycm Examination of the solid and hollow viscera is limited given the lack of contrast. FINDINGS: LUNG BASES: No evidence for nodule. No evidence for infiltrate. LIVER/GB: The gallbladder is surgically absent. No space-occupying hepatic lesion. PANCREAS: No pancreatic mass identified. No inflammatory process seen. SPLEEN: No evidence for splenomegaly. No intrasplenic lesions seen. ADRENALS: No adrenal nodules identified. No evidence for thickening. KIDNEYS: No evidence for renal mass. No nephrolithiasis. No hydronephrosis. There is distention of th e urinary bladder measuring approximately 16 x 16 cm. BOWEL: Appendix has a normal appearance. There is fluid distention of a redundant sigmoid colon. No e vidence for volvulus at this time. There is distention of the colon noted as well with moderate intra colonic fecal debris. Colon measures maximally 6.6 cm. Normal-appearing appendix is visualized. Small bowel is of normal caliber. There may be mild wall thickening of the rectosigmoid colon. Correlate f or proctocolitis. Lymph nodes: No evidence for adenopathy greater than 1 cm. Abdominal aorta: Atheromatous changes seen. No evidence for aneurysm. Genital organs: No significant abnormality. Other: No significant abnormality. IMPRESSION: 1. There is a mild wall thickening of the rectosigmoid colon which could reflect proctocolitis with s ubsequent distention of a redundant sigmoid colon. The remainder of the colon is also mildly distende d with scattered intracolonic debris. No evidence for free air or abscess. 2. Distention of the urinary bladder.
[2023-04-20 16:41] LABS: Glucose,Whole Blood 124 mg/dL (70-110)
[2023-04-20] MEDS: DAPTOmycin 500 MG in SODIUM CHLORIDE 0.9% 50 ML IVPB SCH (18:14)
[2023-04-20 20:17] LABS: Glucose,Whole Blood 163 mg/dL (70-110)
--- NOTE | 2023-04-20 21:59 | P.PN ---
Subjective Progress Note Date: 04/20/23 83-year-old pleasant female was sent in by PCP because of possible infection of the pressure ulcers in her foot patient has to diabetic foot ulcers and a stage III left calcaneal pressure pressure ulcers with increased pain and some redness around the area. Patient had history of back on simvastatin enterococcus and MRSA in the past an outpatient cultures is showing the same, wound care and infectious disease were consulted. Patient has creatinine 1.48 which is close to her baseline patient has stage IIIB chronic kidney disease patient does have history of congestive heart failure patient has a normal ejection fraction has diastolic dysfunction presently not volume overloaded. Patient does have any fever chills patient doesn't have any leukocytosis. X-ray of the foot did not show any osteomyelitis. Patient was started on vancomycin infectious disease was consulted. 04/19/2023 Patient is evaluated today on the medical floor. Reports mild discomfort to the left heel. Planned for surgical debridement with vascular. Wound cultures pending. Continues on IV daptomycin. Patient had a bone scan today showing increased uptake on blood flow and blood pool with some subtle uptake on static images. Suggestive of soft tissue infection unable to rule out early ostemyelitis. ID following. Patient noted to have abdominal distention and no BM since monday. Bowel sounds are hypoactive. Concern for obstruction or ileus. 04/20/2023 Patient working with physical therapy up in the chair. Reports pain to the left heel. Status post surgical debridement at the bedside. Wound culture showing presumptive MRSA. Patient will require PICC line and IV antibiotics on discharge. Review of Systems Constitutional: Denied any fatigue denied any fever. Cardio vascular: denied any chest pain, palpitations Gastrointestinal: Reports no BM, reports bloating Pulmonary: Denied any shortness of breath cough Neurologic denied any new focal deficits All inpatient medications were reviewed and appropriate changes in these medications as dictated in the interval history and assessment and plan. PHYSICAL EXAMINATION: GENERAL: The patient is alert and oriented x3, not in any acute distress. Well developed, well nourished. HEENT: Pupils are round and equally reacting to light. EOMI. No scleral icterus. No conjunctival pallor. Normocephalic, atraumatic. No pharyngeal erythema. No thyromegaly. CARDIOVASCULAR: S1 and S2 present. No murmurs, rubs, or gallops. PULMONARY: Chest is clear to auscultation, no wheezing or crackles. ABDOMEN: Soft, nontender, distended, hypoactive bowel sounds. Dull. No palpable organomegaly. MUSCULOSKELETAL: No joint swelling or deformity. EXTREMITIES: No cyanosis, clubbing, or pedal edema. NEUROLOGICAL: Gross neurological examination did not reveal any focal deficits. SKIN: Lower extremity ulcers as mentioned above Assessment and plan -Infected left foot calcaneal ulcer status post surgical debridement cultures showing presumptive MRSA patient on IV daptomycin will need PICC line and IV antibiotics on discharge -Abdominal distention and constipation abdominal xray showing colonic ileus given dulcolax suppository and general surgery consultation -Congestive heart failure chronic diastolic dysfunction without any acute exacerbation, patient is euvolemic remains on home diuretics. -Chronic kidney disease stage III: creatinine at baseline -History of recent DVT for which patient is on 5 mg twice a day of eliquis -Type 2 diabetes mellitus: Resume home regimen along with sliding scale insulin and titrated as needed Accu-Cheks -Hypertension -History hyperlipidemia -DVT prophylaxis: On anticoagulation GI prophylaxis Full Code The impression and plan of care has been dictated by Carmela Giordano, Nurse Practitioner as directed. Dr. Jesús MD I have performed a history and physical examination and medical decision making of this patient, discussed the same with the dictator, and agree with the dictators assessment and plan as written, documented as a scribe. Based on total visit time, I have performed more than 50% of this visit. Objective - Vital Signs Vital signs: Vital Signs Temp 98.9 F 04/20/23 07:34 Pulse 73 04/20/23 07:34 Resp 18 04/20/23 07:34 BP 122/68 04/20/23 07:34 Pulse Ox 97 04/20/23 07:34 FiO2 Intake & Output 04/19/23 04/20/23 04/20/23 18:59 06:59 18:59 Output Total 1400 1200 Balance -1400 -1200 Weight 98.43 kg Output: Urine 1400 1200 Other: Voiding Method Incontinent External Catheter External Catheter - Labs CBC & Chem 7: 04/17/23 18:39 04/19/23 06:43 Labs: Abnormal Lab Results - Last 24 Hours (Table) 04/19/23 04/19/23 04/19/23 Range/Units 06:43 06:43 11:09 ESR 92 H (0-30) mm/Hr Est GFR (CKD-EPI) 37 L (>=60) POC Glucose (mg/dL) 191 H (70-110) mg/dL Calcium 8.3 L (8.7-10.3) mg/dL C-Reactive Protein 9.00 H (0.00-0.80) mg/dL 04/19/23 04/19/23 04/20/23 Range/Units 16:13 20:12 05:32 ESR (0-30) mm/Hr Est GFR (CKD-EPI) (>=60) POC Glucose (mg/dL) 209 H 142 H 118 H (70-110) mg/dL Calcium (8.7-10.3) mg/dL C-Reactive Protein (0.00-0.80) mg/dL Microbiology - Last 24 Hours (Table) 04/17/23 18:35 Blood Culture - Preliminary Blood Assessment and Plan Time with Patient: Less than 30
[2023-04-21 06:05] LABS: Glucose,Whole Blood 94 mg/dL (70-110)
[2023-04-21] MEDS: INSULIN ASPART (NovoLOG) 100 UNIT/ML VIAL SQ SCH ×4 (06:07→21:56)
[2023-04-21] MEDS: SPIRONOLACTONE 25 MG TAB PO SCH (08:39)
[2023-04-21] MEDS: DOCUSATE 100 MG CAP PO SCH (08:39)
[2023-04-21] MEDS: METOPROLOL SUCCINATE (ER) 25 MG TAB.ER.24H PO SCH (08:40)
[2023-04-21] MEDS: APIXABAN 5 MG TAB PO SCH ×2 (08:40→20:59)
[2023-04-21] MEDS: ASPIRIN 81 MG PO SCH (08:40)
[2023-04-21] MEDS: DAPAGLIFLOZIN PROPANEDIOL 5 MG TABLET PO SCH (08:40)
[2023-04-21] MEDS: TORSEMIDE 20 MG TAB PO SCH ×2 (08:40→20:59)
--- NOTE | 2023-04-21 10:34 | P.NPCON ---
History of Present Illness - Reason for Consult chronic renal failure - History of Present Illness Patient is an 83-year-old female with history of diabetes and diabetic foot ulcers. Patient was admitted to the hospital with increasing redness in her feet. She is currently maintained on antibiotics for nonhealing wound of the left heel with wound culture positive for VRE and MRSA. Patient needs PICC line for outpatient antibiotics. Serum creatinine has been at 1.4 mg/dL with GFR at 37 mL per minute. Review of previous labs show serum creatinine of 1.2 on 03/23/2023 and 1.6 on 03/22/2023. It appears that patient had an acute kidney injury on 814 with peak creatinine at 2.0. Patient currently has an external catheter. 24 hour urine documented at 2.6 L. Blood pressure has been towards the lower side with systolic in the 99-116 range recently. Patient is maintained on torsemide, farxiga and daptomycin. 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, VRE Date of last positivie culture/infection: 08/27/21-VRE; 2014-MRSA MDRO Source:: Left Leg-VRE; left leg-MRSA Past Surgical History: Appendectomy, Section, Cholecystectomy, Heart Catheterization, Hysterectomy Additional Past Surgical History / Comment(s): pericardial window, surgery mir eyes for glaucoma, cyst removal on abdomen Past Anesthesia/Blood Transfusion Reactions: Blood Transfusion Reaction Additional Past Anesthesia/Blood Transfusion Reaction / Comment(s): reaction to blood transfusion 25-30 yrs ago-"I got red and they pulled it out" Past Psychological History: No Psychological Hx Reported Smoking Status: Former smoker Past Alcohol Use History: None Reported Past Drug Use History: None Reported - Past Family History Father Family Medical History: Cancer Brother(s) Family Medical History: Cancer Medications and Allergies Home Medications Medication Instructions Recorded Confirmed Type Aspirin [Adult Low Dose Aspirin EC] 81 mg PO DAILY 01/31/19 04/17/23 History Torsemide [Demadex] 20 mg PO BID 01/31/19 04/17/23 History Atorvastatin [Lipitor] 20 mg PO HS 08/27/21 04/17/23 History Docusate Sodium 250 mg PO DAILY 03/20/23 04/17/23 History Empagliflozin [Jardiance] 10 mg PO DAILY 03/20/23 04/17/23 History Metoprolol Succinate (ER) [Toprol 25 mg PO DAILY 03/20/23 04/17/23 History XL] Potassium Chloride ER [K-Dur 20] 20 meq PO BID 03/20/23 04/17/23 History Spironolactone [Aldactone] 12.5 mg PO DAILY 03/20/23 04/17/23 History Apixaban [Eliquis] 5 mg PO BID 04/17/23 04/17/23 History Allergies Allergy/AdvReac Type Severity Reaction Status Date / Time cefepime Allergy Anaphylaxis Verified 04/17/23 19:43 latex Allergy Rash/red Verified 04/17/23 19:43 skin Penicillins Allergy Rash/Hives Verified 04/17/23 19:43 Physical Exam Vitals: Vital Signs Temp Pulse Resp BP Pulse Ox 04/21/23 07:44 139/63 96 04/21/23 07:00 98.1 F 69 17 99/59 91 L 04/21/23 02:00 98.9 F 70 16 116/66 92 L 04/20/23 19:51 98.4 F 67 16 110/63 95 04/20/23 13:10 98.2 F 71 18 127/72 97 Intake and Output 04/20/23 04/21/23 04/21/23 22:59 06:59 14:59 Intake Total 530 Output Total 400 300 Balance -400 230 Intake: Intake, IV Titration 50 Amount DAPTOmycin 500 mg In 50 Sodium Chloride 0.9% 50 ml @ 100 mls/hr IVPB Q48H [facility] Rx#:[id number] Oral 480 Output: Urine 400 300 Other: Voiding Method Incontinent External Catheter # Bowel Movements 1 1 Patient is awake, comfortable, in no acute distress Examination of the heart S1 and S2 Examination of the lungs bilateral breath sounds are heard Abdomen is soft nontender Examination of lower extremities shows bilateral extremities to be wrapped BEAD STRINGER exam grossly intact Results - Lab Results Most recent lab results Calcium 8.3 mg/dL (8.7-10.3) L 04/19/23 06:43 04/17/23 18:39 04/19/23 06:43 Assessment and Plan Assessment: 1. Acute kidney injury most likely ATN currently nonoliguric. And there is element of obstructive uropathy as the bladder is significantly distended on CT of the abdomen and pelvis. This was performed on 04/20/2023 2. Recent acute kidney injury on 03/20/2023 with peak creatinine at 2.0 and decrease to 1.2 on 03/23/2023 3. Chronic kidney disease NKF stage III with baseline creatinine around 1.2 mg/dL secondary to nephrosclerosis 4. Left foot diabetic ulcer with wound cultures growing VRE and MRSA currently maintained on daptomycin and needing PICC line for long-term outpatient antibiotics 5. Type 2 diabetes maintained on farxiga Plan: Straight cath patient and continue to monitor for urine retention Okay to proceed with PICC line placement Continue with torsemide Repeat labs in a.m. Check UA Thank you for the consultation. We will continue to follow the patient with you during her hospitalization.
[2023-04-21 11:06] LABS: Glucose,Whole Blood 130 mg/dL (70-110)
[2023-04-21] MEDS: LACTULOSE 20 GM/30 ML CUP PO SCH ×3 (14:35→21:03)
[2023-04-21 16:10] LABS: Glucose,Whole Blood 239 mg/dL (70-110)
--- NOTE | 2023-04-21 16:26 | P.PN ---
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 Patient did have a bedside debridement of the left heel wound by vascular surgery did not mention extending down to the bone On today's evaluation that is 04/21/2023, the patient remains to be afebrile, the patient is breathing comfortably , the patient denies chest pain and no significant cough, the patient denies nausea and vomiting she was complaining of some abdominal pain for which CT of abdominal pelvis has been done question of possible rectosigmoid area inflammation versus underdistention no diarrhea reported by the nursing staff,, the patient pain to the left heel has slightly decreased in intensity. Patient sed rate is 92 CRP is 9.0 as of 04/19/2023, no blood draw today , blood cultures are currently pending local culture grew MRSA and Streptococcus agalactiae Objective - Vital Signs Vital signs: Vital Signs Temp 98.1 F 04/21/23 07:00 Pulse 69 04/21/23 07:00 Resp 17 04/21/23 07:00 BP 139/63 04/21/23 07:44 Pulse Ox 96 04/21/23 07:44 FiO2 Intake & Output 04/20/23 04/21/23 04/21/23 18:59 06:59 18:59 Intake Total 530 Output Total 212 913 0627 Balance -400 230 -1100 Intake: Intake, IV Titration 50 Amount DAPTOmycin 500 mg In 50 Sodium Chloride 0.9% 50 ml @ 100 mls/hr IVPB Q48H [facility] Rx#:[id number] Oral 480 Output: Urine 441 696 0564 Other: Voiding Method Incontinent Incontinent External Catheter External Catheter External Catheter # Bowel Movements 1 1 - Exam GENERAL DESCRIPTION: Elderly female lying in bed in no distress RESPIRATORY SYSTEM: Unlabored breathing , decreased breath sounds at bases HEART: S1 S2 regular rate and rhythm ,no loud murmurs ABDOMEN: Soft , no tenderness EXTREMITIES: Left heel wound with some necrotic area surrounding swelling no foul-smelling drainage. - Labs CBC & Chem 7: 04/17/23 18:39 04/19/23 06:43 Labs: Abnormal Lab Results - Last 24 Hours (Table) 04/20/23 04/20/23 04/20/23 Range/Units 11:19 16:39 20:15 POC Glucose (mg/dL) 202 H 124 H 163 H (70-110) mg/dL 04/21/23 Range/Units 11:04 POC Glucose (mg/dL) 130 H (70-110) mg/dL Microbiology - Last 24 Hours (Table) 04/17/23 18:39 Gram Stain - Final Foot - Left Wound Culture - Final Strep agalactiae - (group b) Methicillin resist S. aureus 04/17/23 18:35 Blood Culture - Preliminary Blood 04/19/23 17:00 Tissue Culture - Preliminary Heel - Left Presumptive MRSA Strep agalactiae - (group b) Assessment and Plan (1) Left leg cellulitis Current Visit: Yes Status: Acute Code(s): L03.116 - CELLULITIS OF LEFT LOWER LIMB SNOMED Code(s): 600616216 (2) Allergy to multiple antibiotics Current Visit: Yes Status: Acute Code(s): Z88.1 - ALLERGY STATUS TO OTHER ANTIBIOTIC AGENTS SNOMED Code(s): 343389159 (3) VRE (vancomycin resistant enterococcus) culture positive Current Visit: Yes Status: Acute Code(s): Z22.39 - CARRIER OF OTHER SPECIFIED BACTERIAL DISEASES SNOMED Code(s): 386258319 (4) Stage III pressure ulcer of left heel Current Visit: Yes Status: Acute Code(s): L89.623 - PRESSURE ULCER OF LEFT HEEL, STAGE 3 SNOMED Code(s): 11493153422867 Plan: 1patient with a 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 2patient with multiple antibiotic allergies that would limit the number of antibiotics safe to use 3mild renal insufficiency risk of nephrotoxicity from vancomycin 4patient did have elevated inflammatory markers, bone scan cannot rule out Osteomyelitis at the left heel 5patient local culture did grew MRSA and Streptococcus agalactiae 6patient to continue with daptomycin PICC line has been ordered for outpatient IV antibiotics Dictation was produced using [employer] dictation software. please excuse any grammatical, word or spelling errors. Time with Patient: Less than 30
--- NOTE | 2023-04-21 16:38 | P.PN ---
Subjective Progress Note Date: 04/21/23 CHIEF COMPLAINT: Left foot ulcer HISTORY OF PRESENT ILLNESS: Surgical service following regards to ileus. Patient only had 1 bowel movement yesterday. She does feel more bloated today. She is having flatus. Denies any nausea or vomiting. She does complain of abdominal distention. Computed tomography scan abdomen and pelvis showed mild wall thickening of the rectosigmoid sigmoid colon which could reflect proctocolitis with distention of the sigmoid colon. No free air or abscess. Afebrile. Patient reports never having a colonoscopy PHYSICAL EXAM: VITAL SIGNS: Reviewed. GENERAL: Well-developed in no acute distress. HEENT: No sclera icterus. Extraocular movements grossly intact. Moist buccal mucosa. Head is atraumatic, normocephalic. ABDOMEN: Soft. Distended. Nontender. NEUROLOGIC: Alert and oriented. Cranial nerves II through XII grossly intact. ASSESSMENT: 1. Ileus with abdominal distention 2. Mild wall thickening of the rectosigmoid sigmoid colon with possible proctocolitis noted on CAT scan 3. Constipation 4. Diabetic heel ulcer status post debridement with vascular surgery PLAN: -Lactulose twice a day added for constipation -Continue antibiotics -Continue supportive care Physician [employer] note has been reviewed by physician. Signing provider agrees with the documented findings, assessment, and plan of care. Objective - Vital Signs Vital signs: Vital Signs Temp 98.1 F 04/21/23 07:00 Pulse 69 04/21/23 07:00 Resp 17 04/21/23 07:00 BP 139/63 04/21/23 07:44 Pulse Ox 96 04/21/23 07:44 FiO2 Intake & Output 04/20/23 04/21/23 04/21/23 18:59 06:59 18:59 Intake Total 530 Output Total 948 084 3815 Balance -400 230 -1101 Intake: Intake, IV Titration 50 Amount DAPTOmycin 500 mg In 50 Sodium Chloride 0.9% 50 ml @ 100 mls/hr IVPB Q48H [facility] Rx#:[id number] Oral 480 Output: Urine 024 490 0186 Stool 1 Other: Voiding Method Incontinent Incontinent External Catheter External Catheter External Catheter # Bowel Movements 1 1 - Labs CBC & Chem 7: 04/17/23 18:39 04/19/23 06:43 Labs: Abnormal Lab Results - Last 24 Hours (Table) 04/20/23 04/20/23 04/21/23 Range/Units 16:39 20:15 11:04 POC Glucose (mg/dL) 124 H 163 H 130 H (70-110) mg/dL Microbiology - Last 24 Hours (Table) 04/17/23 18:39 Gram Stain - Final Foot - Left Wound Culture - Final Strep agalactiae - (group b) Methicillin resist S. aureus 04/17/23 18:35 Blood Culture - Preliminary Blood 04/19/23 17:00 Tissue Culture - Preliminary Heel - Left Presumptive MRSA Strep agalactiae - (group b)
--- NOTE | 2023-04-21 17:01 | P.PN ---
Subjective Progress Note Date: 04/21/23 83-year-old pleasant female was sent in by PCP because of possible infection of the pressure ulcers in her foot patient has to diabetic foot ulcers and a stage III left calcaneal pressure pressure ulcers with increased pain and some redness around the area. Patient had history of back on simvastatin enterococcus and MRSA in the past an outpatient cultures is showing the same, wound care and infectious disease were consulted. Patient has creatinine 1.48 which is close to her baseline patient has stage IIIB chronic kidney disease patient does have history of congestive heart failure patient has a normal ejection fraction has diastolic dysfunction presently not volume overloaded. Patient does have any fever chills patient doesn't have any leukocytosis. X-ray of the foot did not show any osteomyelitis. Patient was started on vancomycin infectious disease was consulted. 04/19/2023 Patient is evaluated today on the medical floor. Reports mild discomfort to the left heel. Planned for surgical debridement with vascular. Wound cultures pending. Continues on IV daptomycin. Patient had a bone scan today showing increased uptake on blood flow and blood pool with some subtle uptake on static images. Suggestive of soft tissue infection unable to rule out early ostemyelitis. ID following. Patient noted to have abdominal distention and no BM since monday. Bowel sounds are hypoactive. Concern for obstruction or ileus. 04/20/2023 Patient working with physical therapy up in the chair. Reports pain to the left heel. Status post surgical debridement at the bedside. Wound culture showing presumptive MRSA. Patient will require PICC line and IV antibiotics on discharge. 04/21/2023 Patient monitored on the medical floor. Resting in bed. Did have a large bowel movement, reports increased flatus. Abdomen remains distended and tympanic. Abdominal pelvis CT reveals mild wall thickening of the rectosigmoid colon which could reflect proctocolitis with subsequent distention of the redundant sigmoid colon. Remainder of the colon is mildly distended and scattered intracolonic debris. No evidence for free air or abscess. Distention of the urinary bladder. Patient was found to be retaining urine straight cathed for 800 mls of urine. Nephrology consultation for the [facility]. CRP and Sed rate are elevated. Patient scheduled to receive PICC line today. Wound culture of the left heel showing MRSA and strep group B. Patient remains on IV daptomycin with plans for outpatient antibiotics and wound care. Review of Systems Constitutional: Denied any fatigue denied any fever. Cardio vascular: denied any chest pain, palpitations Gastrointestinal: No abdominal pain has distention, increasing flatus. Pulmonary: Denied any shortness of breath cough Neurologic denied any new focal deficits All inpatient medications were reviewed and appropriate changes in these medications as dictated in the interval history and assessment and plan. PHYSICAL EXAMINATION: GENERAL: The patient is alert and oriented x3, not in any acute distress. Well developed, well nourished. HEENT: Pupils are round and equally reacting to light. EOMI. No scleral icterus. No conjunctival pallor. Normocephalic, atraumatic. No pharyngeal erythema. No thyromegaly. CARDIOVASCULAR: S1 and S2 present. No murmurs, rubs, or gallops. PULMONARY: Chest is clear to auscultation, no wheezing or crackles. ABDOMEN: Soft, nontender, distended, hypoactive bowel sounds. Tympanic, No palpable organomegaly. MUSCULOSKELETAL: No joint swelling or deformity. EXTREMITIES: No cyanosis, clubbing, or pedal edema. NEUROLOGICAL: Gross neurological examination did not reveal any focal deficits. Generalized weakness SKIN: Lower heel ulceration and hyperpigmentation of the lower extremities. Assessment and plan -Infected left foot calcaneal ulcer status post surgical debridement cultures showing MRSA patient on IV daptomycin will need PICC line and IV antibiotics on discharge -Abdominal distention and constipation abdominal xray showing colonic ileus, CT showing mild wall thickening -Urinary retention strait cath x 1 -Congestive heart failure chronic diastolic dysfunction without any acute exacerbation, patient is euvolemic remains on home diuretics. -Chronic kidney disease stage III: creatinine at baseline -History of recent DVT for which patient is on 5 mg twice a day of eliquis -Type 2 diabetes mellitus: Resume home regimen along with sliding scale insulin and titrated as needed Accu-Cheks -Hypertension -History hyperlipidemia -DVT prophylaxis: On anticoagulation GI prophylaxis Full Code Plan Continue to bladder scan the patient Q6 and follow protocol for urinary retention. Local wound care in place for the left heel wound. Remains on IV antibiotics plan to get PICC line placed today for IV antibiotics on discharge. General surgery following for the abdominal distention. Plan is for home on discharge. The impression and plan of care has been dictated by Nurse Maira Schaefer as directed. Dr. Jesús MD I have performed a history and physical examination and medical decision making of this patient, discussed the same with the dictator, and agree with the dict ators assessment and plan as written, documented as a scribe. Based on total visit time, I have performed more than 50% of this visit. Objective - Vital Signs Vital signs: Vital Signs Temp 98.3 F 04/21/23 12:48 Pulse 65 04/21/23 12:48 Resp 18 04/21/23 12:48 BP 129/69 04/21/23 12:48 Pulse Ox 94 L 04/21/23 12:48 FiO2 Intake & Output 04/20/23 04/21/23 04/21/23 18:59 06:59 18:59 Intake Total 530 Output Total 104 918 4869 Balance -400 230 -1101 Weight 98.43 kg Intake: Intake, IV Titration 50 Amount DAPTOmycin 500 mg In 50 Sodium Chloride 0.9% 50 ml @ 100 mls/hr IVPB Q48H [facility] Rx#:[id number] Oral 480 Output: Urine 080 345 5818 Stool 1 Other: Voiding Method Incontinent Incontinent External Catheter External Catheter External Catheter # Bowel Movements 1 1 - Labs CBC & Chem 7: 04/17/23 18:39 04/19/23 06:43 Labs: Abnormal Lab Results - Last 24 Hours (Table) 04/20/23 04/20/23 04/21/23 Range/Units 16:39 20:15 11:04 POC Glucose (mg/dL) 124 H 163 H 130 H (70-110) mg/dL Microbiology - Last 24 Hours (Table) 04/17/23 18:39 Gram Stain - Final Foot - Left Wound Culture - Final Strep agalactiae - (group b) Methicillin resist S. aureus 04/17/23 18:35 Blood Culture - Preliminary Blood 04/19/23 17:00 Tissue Culture - Preliminary Heel - Left Presumptive MRSA Strep agalactiae - (group b) Assessment and Plan Time with Patient: Less than 30
[2023-04-21 21:04] LABS: Glucose,Whole Blood 151 mg/dL (70-110)
[2023-04-22 05:47] LABS: Glucose,Whole Blood 105 mg/dL (70-110)
[2023-04-22] MEDS: INSULIN ASPART (NovoLOG) 100 UNIT/ML VIAL SQ SCH ×4 (05:48→21:25)
[2023-04-22] MEDS: ASPIRIN 81 MG PO SCH (08:45)
[2023-04-22] MEDS: DAPAGLIFLOZIN PROPANEDIOL 5 MG TABLET PO SCH (08:45)
[2023-04-22] MEDS: APIXABAN 5 MG TAB PO SCH ×2 (08:45→21:25)
[2023-04-22] MEDS: SPIRONOLACTONE 25 MG TAB PO SCH (08:45)
[2023-04-22] MEDS: DOCUSATE 100 MG CAP PO SCH (08:45)
[2023-04-22] MEDS: TORSEMIDE 20 MG TAB PO SCH ×2 (08:46→21:26)
[2023-04-22] MEDS: METOPROLOL SUCCINATE (ER) 25 MG TAB.ER.24H PO SCH (08:46)
[2023-04-22] MEDS: LACTULOSE 20 GM/30 ML CUP PO SCH ×2 (08:53→21:26)
[2023-04-22 11:20] LABS: Basophils # (A) 0.07 X 10*3/uL (0.00-0.10); Basophils % (A) 0.7 %; Eosinophils # (A) 0.38 X 10*3/uL (0.04-0.35); Eosinophils % (A) 3.6 %; HCT 40.4 % (37.2-46.3); HGB 12.3 d/dL (12.0-15.0); Lymphocytes # (A) 1.29 X 10*3/uL (0.90-5.00); Lymphocytes % (A) 12.2 %; MCH 27.5 pg (27.0-32.0); MCHC 30.4 d/dL (32.0-37.0); MCV 90.2 FL (80.0-97.0); Monocytes # (A) 1.02 X 10*3/uL (0.20-1.00); Monocytes % (A) 9.6 %; NRBC Per 100 WBC 0 X 10*3/uL (0.00-0.01); Neutrophils # (A) 7.79 X 10*3/uL (1.80-7.70); Neutrophils % (A) 73.3 %; Platelet Count 252 X 10*3/uL (140-440); RBC 4.48 X 10*6/uL (4.10-5.20); RDW 16.9 % (11.5-14.5); WBC 10.61 X 10*3/uL (4.50-10.00)
[2023-04-22 11:40] LABS: Glucose,Whole Blood 159 mg/dL (70-110)
[2023-04-22 11:41] LABS: BUN/Creat Ratio 17.71 Ratio (12.00-20.00); Blood Urea Nitrogen 30.1 mg/dL (9.0-27.0); Calcium 8.1 mg/dL (8.7-10.3); Carbon Dioxide 25.6 mmol/L (21.6-31.8); Chloride 103 mmol/L (96-109); Glucose 104 mg/dL (70-110); Sodium 141 mmol/L (135-145)
[2023-04-22 12:02] LABS: Appearance,Urine Cloudy (Clear); Bacteria,Urine Rare /hpf; Bilirubin,Urine Negative (Negative); Blood,Urine Large (Negative); Color,Urine Light Red; Glucose,Urine (UA) 3+ (Negative); Ketones,Urine Negative (Negative); Leukocyte Esterase,Urine Negative (Negative); Mucus,Urine Rare /hpf; Nitrite,Urine Negative (Negative); Protein,Urine Trace (Negative); RBC,Urine 153 /hpf (0-5); Specific Gravity,Urine 1.009 (1.001-1.035); Squamous Epithelial Cell,Urine <1 /hpf (0-4); Urobilinogen,Urine <2.0 mg/dL (<2.0); WBC,Urine 6 /hpf (0-5)
--- NOTE | 2023-04-22 12:09 | P.PN ---
Subjective Patient is seen for follow-up for acute kidney injury on top of chronic kidney disease Urine retention was noted on initial bladder scan however repeat bladder scan volume has been around 200 mL. Documented low blood pressure noted yesterday at 99/59 mmHg 24 hour urine output at 2.5 L. Maintained on Demadex 20 mg twice a day. No significant complaints today. Objective - Vital Signs Vital signs: Vital Signs Temp 98.1 F 04/22/23 07:03 Pulse 79 04/22/23 07:03 Resp 12 04/22/23 07:03 BP 120/67 04/22/23 07:03 Pulse Ox 95 04/22/23 07:03 FiO2 Intake & Output 04/21/23 04/22/23 04/22/23 18:59 06:59 18:59 Intake Total 480 Output Total 1901 675 Balance -1901 -195 Weight 98.43 kg Intake: Oral 480 Output: Urine 1900 675 Stool 1 Other: Voiding Method External Catheter Incontinent Incontinent External Catheter External Catheter # Bowel Movements 1 - Exam Patient is awake, comfortable, in no acute distress Examination of the heart S1 and S2 Examination of the lungs bilateral breath sounds are heard Abdomen is soft nontender Examination of lower extremities shows bilateral extremities to be wrapped CERTIFIED DIALYSIS TECHNICIAN exam grossly intact - Labs CBC & Chem 7: 04/22/23 05:37 04/22/23 05:37 Labs: Abnormal Lab Results - Last 24 Hours (Table) 04/21/23 04/21/23 04/22/23 Range/Units 16:09 21:01 05:37 WBC 10.61 H (4.50-10.00) X 10*3/uL MCHC 30.4 L (32.0-37.0) d/dL RDW 16.9 H (11.5-14.5) % MPV 9.0 L (9.5-12.2) FL Neutrophils # 7.79 H (1.80-7.70) X 10*3/uL Monocytes # 1.02 H (0.20-1.00) X 10*3/uL Eosinophils # 0.38 H (0.04-0.35) X 10*3/uL Anion Gap (4.00-12.00) mmol/L BUN (9.0-27.0) mg/dL Creatinine (0.6-1.5) mg/dL Est GFR (CKD-EPI) (>=60) POC Glucose (mg/dL) 239 H 151 H (70-110) mg/dL Calcium (8.7-10.3) mg/dL Urine Appearance (Clear) Urine Protein (Negative) Urine Glucose (UA) (Negative) Urine Blood (Negative) Urine RBC (0-5) /hpf Urine WBC (0-5) /hpf Urine Bacteria (None) /hpf Urine Mucus (None) /hpf 04/22/23 04/22/23 04/22/23 Range/Units 05:37 09:50 11:38 WBC (4.50-10.00) X 10*3/uL MCHC (32.0-37.0) d/dL RDW (11.5-14.5) % MPV (9.5-12.2) FL Neutrophils # (1.80-7.70) X 10*3/uL Monocytes # (0.20-1.00) X 10*3/uL Eosinophils # (0.04-0.35) X 10*3/uL Anion Gap 12.40 H (4.00-12.00) mmol/L BUN 30.1 H (9.0-27.0) mg/dL Creatinine 1.7 H (0.6-1.5) mg/dL Est GFR (CKD-EPI) 29 L (>=60) POC Glucose (mg/dL) 159 H (70-110) mg/dL Calcium 8.1 L (8.7-10.3) mg/dL Urine Appearance Cloudy H (Clear) Urine Protein Trace H (Negative) Urine Glucose (UA) 3+ H (Negative) Urine Blood Large H (Negative) Urine RBC 153 H (0-5) /hpf Urine WBC 6 H (0-5) /hpf Urine Bacteria Rare H (None) /hpf Urine Mucus Rare H (None) /hpf Microbiology - Last 24 Hours (Table) 04/19/23 17:00 Gram Stain - Preliminary Heel - Left Tissue Culture - Preliminary Methicillin resist S. aureus Strep agalactiae - (group b) Group D Enterococcus 04/17/23 18:39 Gram Stain - Final Foot - Left Wound Culture - Final Strep agalactiae - (group b) Methicillin resist S. aureus Assessment and Plan Assessment: 1. Acute kidney injury most likely ATN currently nonoliguric. And there is element of obstructive uropathy as the bladder is significantly distended on CT of the abdomen and pelvis. This was performed on 04/20/2023. Initial bladder scan showed about 600 mL of urine however repeat bladder scans have been below 300. Patient has an external catheter. Blood pressure was low yesterday and th is might explain the elevated creatinine today. I will continue with current dose of torsemide and repeat labs in a.m. 2. Recent acute kidney injury on 03/20/2023 with peak creatinine at 2.0 and dec rease to 1.2 on 03/23/2023 3. Chronic kidney disease NKF stage III with baseline creatinine around 1.2 mg/dL secondary to nephrosclerosis 4. Left foot diabetic ulcer with wound cultures growing VRE and MRSA currently maintained on daptomycin and needing PICC line for long-term outpatient antibiotics 5. Type 2 diabetes maintained on farxiga Plan: Continue to monitor for urine retention Continue with current dose of torsemide Repeat labs in a.m. May continue with farxiga as well.
--- NOTE | 2023-04-22 12:34 | P.PN ---
Progress Note - Text Progress Note Date: 04/22/23 Patient had multiple bowel movements yesterday. On exam vital signs are stable. Abdomen soft nontender Resolving ileus. Patient continue increasing her diet.
--- NOTE | 2023-04-22 12:48 | P.PN ---
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 Patient did have a bedside debridement of the left heel wound by vascular surgery did not mention extending down to the bone On today's evaluation that is 04/22/2023, the patient denies any fever or any chills, the patient is breathing comfortably , the patient denies chest pain and no significant cough, the patient denies nausea and vomiting no abdominal pain and no diarrhea, the patient pain to the left heel has slightly decreased in intensity. Patient sed rate is 92 CRP is 9.0 as of 04/19/2023, white count of 10.61 creatinine is 1.7, blood cultures are currently pending local culture grew MRSA and Streptococcus agalactiae Objective - Vital Signs Vital signs: Vital Signs Temp 98.1 F 04/22/23 07:03 Pulse 79 04/22/23 07:03 Resp 12 04/22/23 07:03 BP 120/67 04/22/23 07:03 Pulse Ox 95 04/22/23 07:03 FiO2 Intake & Output 04/21/23 04/22/23 04/22/23 18:59 06:59 18:59 Intake Total 480 Output Total 1901 675 Balance -1901 -195 Weight 98.43 kg Intake: Oral 480 Output: Urine 1900 675 Stool 1 Other: Voiding Method External Catheter Incontinent Incontinent External Catheter External Catheter # Bowel Movements 1 - Exam GENERAL DESCRIPTION: Elderly female lying in bed in no distress RESPIRATORY SYSTEM: Unlabored breathing , decreased breath sounds at bases HEART: S1 S2 regular rate and rhythm ,no loud murmurs ABDOMEN: Soft , no tenderness EXTREMITIES: Left heel wound with some necrotic area surrounding swelling no foul-smelling drainage. - Labs CBC & Chem 7: 04/22/23 05:37 04/22/23 05:37 Labs: Abnormal Lab Results - Last 24 Hours (Table) 04/21/23 04/21/23 04/22/23 Range/Units 16:09 21:01 05:37 WBC 10.61 H (4.50-10.00) X 10*3/uL MCHC 30.4 L (32.0-37.0) d/dL RDW 16.9 H (11.5-14.5) % MPV 9.0 L (9.5-12.2) FL Neutrophils # 7.79 H (1.80-7.70) X 10*3/uL Monocytes # 1.02 H (0.20-1.00) X 10*3/uL Eosinophils # 0.38 H (0.04-0.35) X 10*3/uL Anion Gap (4.00-12.00) mmol/L BUN (9.0-27.0) mg/dL Creatinine (0.6-1.5) mg/dL Est GFR (CKD-EPI) (>=60) POC Glucose (mg/dL) 239 H 151 H (70-110) mg/dL Calcium (8.7-10.3) mg/dL Urine Appearance (Clear) Urine Protein (Negative) Urine Glucose (UA) (Negative) Urine Blood (Negative) Urine RBC (0-5) /hpf Urine WBC (0-5) /hpf Urine Bacteria (None) /hpf Urine Mucus (None) /hpf 04/22/23 04/22/23 04/22/23 Range/Units 05:37 09:50 11:38 WBC (4.50-10.00) X 10*3/uL MCHC (32.0-37.0) d/dL RDW (11.5-14.5) % MPV (9.5-12.2) FL Neutrophils # (1.80-7.70) X 10*3/uL Monocytes # (0.20-1.00) X 10*3/uL Eosinophils # (0.04-0.35) X 10*3/uL Anion Gap 12.40 H (4.00-12.00) mmol/L BUN 30.1 H (9.0-27.0) mg/dL Creatinine 1.7 H (0.6-1.5) mg/dL Est GFR (CKD-EPI) 29 L (>=60) POC Glucose (mg/dL) 159 H (70-110) mg/dL Calcium 8.1 L (8.7-10.3) mg/dL Urine Appearance Cloudy H (Clear) Urine Protein Trace H (Negative) Urine Glucose (UA) 3+ H (Negative) Urine Blood Large H (Negative) Urine RBC 153 H (0-5) /hpf Urine WBC 6 H (0-5) /hpf Urine Bacteria Rare H (None) /hpf Urine Mucus Rare H (None) /hpf Microbiology - Last 24 Hours (Table) 04/19/23 17:00 Gram Stain - Preliminary Heel - Left Tissue Culture - Preliminary Methicillin resist S. aureus Strep agalactiae - (group b) Group D Enterococcus 04/17/23 18:39 Gram Stain - Final Foot - Left Wound Culture - Final Strep agalactiae - (group b) Methicillin resist S. aureus Assessment and Plan (1) Left leg cellulitis Current Visit: Yes Status: Acute Code(s): L03.116 - CELLULITIS OF LEFT LOWER LIMB SNOMED Code(s): 611241702 (2) Allergy to multiple antibiotics Current Visit: Yes Status: Acute Code(s): Z88.1 - ALLERGY STATUS TO OTHER ANTIBIOTIC AGENTS SNOMED Code(s): 305781713 (3) VRE (vancomycin resistant enterococcus) culture positive Current Visit: Yes Status: Acute Code(s): Z22.39 - CARRIER OF OTHER SPECIFIED BACTERIAL DISEASES SNOMED Code(s): 254827717 (4) Stage III pressure ulcer of left heel Current Visit: Yes Status: Acute Code(s): L89.623 - PRESSURE ULCER OF LEFT HEEL, STAGE 3 SNOMED Code(s): 76425113047689 Plan: 1patient with a 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 2patient with multiple antibiotic allergies that would limit the number of antibiotics safe to use 3mild renal insufficiency risk of nephrotoxicity from vancomycin 4patient did have elevated inflammatory markers, bone scan cannot rule out Osteomyelitis at the left heel 5patient local culture did grew MRSA and Streptococcus agalactiae , enterococcus with sensitivities pending 6patient to continue with daptomycin PICC line has been ordered for outpatient IV antibiotics, local care to continue per surgery Dictation was produced using [employer] dictation software. please excuse any grammatical, word or spelling errors.
[2023-04-22] MEDS ORDERED: KETOROLAC 15 MG/ML 1 ML VIAL IVP PRN (14:27)
[2023-04-22 16:56] LABS: Glucose,Whole Blood 163 mg/dL (70-110)
[2023-04-22] MEDS: DAPTOmycin 500 MG in SODIUM CHLORIDE 0.9% 50 ML IVPB SCH (19:04)
[2023-04-22 20:51] LABS: Glucose,Whole Blood 181 mg/dL (70-110)
--- NOTE | 2023-04-22 21:18 | P.PN ---
Subjective Progress Note Date: 04/22/23 83-year-old pleasant female was sent in by PCP because of possible infection of the pressure ulcers in her foot patient has to diabetic foot ulcers and a stage III left calcaneal pressure pressure ulcers with increased pain and some redness around the area. Patient had history of back on simvastatin enterococcus and MRSA in the past an outpatient cultures is showing the same, wound care and infectious disease were consulted. Patient has creatinine 1.48 which is close to her baseline patient has stage IIIB chronic kidney disease patient does have history of congestive heart failure patient has a normal ejection fraction has diastolic dysfunction presently not volume overloaded. Patient does have any fever chills patient doesn't have any leukocytosis. X-ray of the foot did not show any osteomyelitis. Patient was started on vancomycin infectious disease was consulted. 04/19/2023 Patient is evaluated today on the medical floor. Reports mild discomfort to the left heel. Planned for surgical debridement with vascular. Wound cultures pending. Continues on IV daptomycin. Patient had a bone scan today showing increased uptake on blood flow and blood pool with some subtle uptake on static images. Suggestive of soft tissue infection unable to rule out early ostemyelitis. ID following. Patient noted to have abdominal distention and no BM since monday. Bowel sounds are hypoactive. Concern for obstruction or ileus. 04/20/2023 Patient working with physical therapy up in the chair. Reports pain to the left heel. Status post surgical debridement at the bedside. Wound culture showing presumptive MRSA. Patient will require PICC line and IV antibiotics on discharge. 04/21/2023 Patient monitored on the medical floor. Resting in bed. Did have a large bowel movement, reports increased flatus. Abdomen remains distended and tympanic. Abdominal pelvis CT reveals mild wall thickening of the rectosigmoid colon which could reflect proctocolitis with subsequent distention of the redundant sigmoid colon. Remainder of the colon is mildly distended and scattered intracolonic debris. No evidence for free air or abscess. Distention of the urinary bladder. Patient was found to be retaining urine straight cathed for 800 mls of urine. Nephrology consultation for the [facility]. CRP and Sed rate are elevated. Patient scheduled to receive PICC line today. Wound culture of the left heel showing MRSA and strep group B. Patient remains on IV daptomycin with plans for outpatient antibiotics and wound care. 04/22/2023 Patient evaluated resting in bed. Reports pain to the left heel is controlled with current regimen. Having bowel movements, abdomen remains distended. Surgery following. Patient remains on IV daptomycin for positive wound culture which is showing MRSA, VRE, and Strep agalactaie. Creatinine up to 1.7 today. Patient was having urinary retention which required strait cath x 2. This seems to be improving. Most recent bladder scan today showing 500 mls in the urinary bladder. Hemodynamically patient is stable. Review of Systems Constitutional: Denied any fatigue denied any fever. Cardio vascular: denied any chest pain, palpitations Gastrointestinal: No abdominal pain has distention, increasing flatus. Pulmonary: Denied any shortness of breath cough Neurologic denied any new focal deficits All inpatient medications were reviewed and appropriate changes in these medications as dictated in the interval history and assessment and plan. PHYSICAL EXAMINATION: GENERAL: The patient is alert and oriented x3, not in any acute distress. Well developed, well nourished. HEENT: Pupils are round and equally reacting to light. EOMI. No scleral icterus. No conjunctival pallor. Normocephalic, atraumatic. No pharyngeal erythema. No thyromegaly. CARDIOVASCULAR: S1 and S2 present. No murmurs, rubs, or gallops. PULMONARY: Chest is clear to auscultation, no wheezing or crackles. ABDOMEN: Soft, nontender, distended, hypoactive bowel sounds. Tympanic, No palpable organomegaly. MUSCULOSKELETAL: No joint swelling or deformity. EXTREMITIES: No cyanosis, clubbing, or pedal edema. NEUROLOGICAL: Gross neurological examination did not reveal any focal deficits. Generalized weakness SKIN: Lower heel ulceration and hyperpigmentation of the lower extremities. Assessment and plan -Infected left foot calcaneal ulcer status post surgical debridement cultures showing MRSA and VRE patient on IV daptomycin will need PICC line and IV antibiotics on discharge -Abdominal distention and constipation abdominal xray showing colonic ileus, CT showing mild wall thickening now having bowel movements. Gas drops are added for the distention. -Urinary retention strait cath x 1\ -Congestive heart failure chronic diastolic dysfunction without any acute exacerbation, patient is euvolemic remains on home diuretics. -Chronic kidney disease stage III: creatinine at baseline -History of recent DVT for which patient is on 5 mg twice a day of eliquis -Type 2 diabetes mellitus: Resume home regimen along with sliding scale insulin and titrated as needed Accu-Cheks -Hypertension -History hyperlipidemia -DVT prophylaxis: On anticoagulation GI prophylaxis Full Code Plan Continue to bladder scan the patient Q6 and follow protocol for urinary retention. Local wound care in place for the left heel wound. Remains on IV antibiotics plan to get PICC line placed monday for IV antibiotics on discharge. PICC line placement delayed due to staff availibility to perform procedure. General surgery following for the abdominal distention. Gas drops have been added. Encourage IS. F/U labs in the AM. The impression and plan of care has been dictated by Carmela Giordano, Nurse Practitioner as directed. Dr. Jesús MD I have performed a history and physical examination and medical decision making of this patient, discussed the same with the dictator, and agree with the dictators assessment and plan as written, documented as a scribe. Based on total visit time, I have performed more than 50% of this visit. Objective - Vital Signs Vital signs: Vital Signs Temp 98.1 F 04/22/23 07:03 Pulse 79 04/22/23 07:03 Resp 12 04/22/23 07:03 BP 120/67 04/22/23 07:03 Pulse Ox 95 04/22/23 07:03 FiO2 Intake & Output 04/21/23 04/22/23 04/22/23 18:59 06:59 18:59 Intake Total 480 Output Total 1901 675 Balance -1901 -195 Weight 98.43 kg Intake: Oral 480 Output: Urine 1900 675 Stool 1 Other: Voiding Method External Catheter Incontinent External Catheter # Bowel Movements 1 - Labs CBC & Chem 7: 04/22/23 05:37 04/22/23 05:37 Labs: Abnormal Lab Results - Last 24 Hours (Table) 04/21/23 04/21/23 04/21/23 Range/Units 11:04 16:09 21:01 POC Glucose (mg/dL) 130 H 239 H 151 H (70-110) mg/dL Microbiology - Last 24 Hours (Table) 04/19/23 17:00 Gram Stain - Preliminary Heel - Left Tissue Culture - Preliminary Methicillin resist S. aureus Strep agalactiae - (group b) Group D Enterococcus 04/17/23 18:39 Gram Stain - Final Foot - Left Wound Culture - Final Strep agalactiae - (group b) Methicillin resist S. aureus Assessment and Plan Time with Patient: Less than 30
[2023-04-22] MEDS: SIMETHICONE 80 MG CHEWABLE PO SCH (22:01)
[2023-04-23 05:26] LABS: Glucose,Whole Blood 118 mg/dL (70-110)
[2023-04-23] MEDS: INSULIN ASPART (NovoLOG) 100 UNIT/ML VIAL SQ SCH ×4 (05:35→22:15)
[2023-04-23] MEDS: SIMETHICONE 80 MG CHEWABLE PO SCH ×4 (09:06→22:15)
[2023-04-23] MEDS: APIXABAN 5 MG TAB PO SCH ×2 (09:07→22:15)
[2023-04-23] MEDS: ASPIRIN 81 MG PO SCH (09:07)
[2023-04-23] MEDS: LACTULOSE 20 GM/30 ML CUP PO SCH ×2 (09:07→22:16)
[2023-04-23] MEDS: METOPROLOL SUCCINATE (ER) 25 MG TAB.ER.24H PO SCH (09:07)
[2023-04-23] MEDS: DOCUSATE 100 MG CAP PO SCH (09:07)
[2023-04-23] MEDS: SPIRONOLACTONE 25 MG TAB PO SCH (09:07)
[2023-04-23] MEDS: DAPAGLIFLOZIN PROPANEDIOL 5 MG TABLET PO SCH (09:07)
[2023-04-23] MEDS: TORSEMIDE 20 MG TAB PO SCH ×2 (09:07→22:16)
--- NOTE | 2023-04-23 09:49 | P.PN ---
Progress Note - Text Progress Note Date: 04/23/23 The patient's resting comfortably in her bed. She is tolerating diet. She has no abdominal complaints. On exam vital signs appear stable. Abdomen soft. Kaye resolved. She'll receive supportive care.
[2023-04-23 10:36] LABS: BUN/Creat Ratio 18.31 Ratio (12.00-20.00); Blood Urea Nitrogen 29.3 mg/dL (9.0-27.0); Calcium 8.1 mg/dL (8.7-10.3); Carbon Dioxide 27.1 mmol/L (21.6-31.8); Chloride 100 mmol/L (96-109); Glucose 110 mg/dL (70-110); Magnesium 2.4 mg/dL (1.5-2.4); Potassium 3.7 mmol/L (3.5-5.5); Sodium 139 mmol/L (135-145)
--- NOTE | 2023-04-23 10:50 | P.PN ---
Subjective Patient is seen for follow-up for acute kidney injury on top of chronic kidney disease Urine retention was noted on initial bladder scan however repeat bladder scan volume has been around 200 mL. Documented low blood pressure noted yesterday at 99/59 mmHg 24 hour urine output at 2.9 L. Maintained on Demadex 20 mg twice a day. No significant complaints today. Serum creatinine at 1.6 today Objective - Vital Signs Vital signs: Vital Signs Temp 99.1 F 04/23/23 07:34 Pulse 68 04/23/23 07:34 Resp 16 04/23/23 07:34 BP 138/65 04/23/23 07:34 Pulse Ox 91 L 04/23/23 07:34 FiO2 Intake & Output 04/22/23 04/23/23 04/23/23 18:59 06:59 18:59 Intake Total 1080 480 Output Total 1900 1000 Balance -820 -520 Intake: Oral 1080 480 Output: Urine 1900 1000 Other: Voiding Method Incontinent Indwelling Catheter Indwelling Catheter External Catheter # Bowel Movements 1 1 - Exam Patient is awake, comfortable, in no acute distress Examination of the heart S1 and S2 Examination of the lungs bilateral breath sounds are heard Abdomen is soft nontender Examination of lower extremities shows bilateral extremities to be wrapped ORE SMELTER exam grossly intact - Labs CBC & Chem 7: 04/22/23 05:37 04/23/23 05:34 Labs: Abnormal Lab Results - Last 24 Hours (Table) 04/22/23 04/22/23 04/22/23 Range/Units 05:37 05:37 09:50 WBC 10.61 H (4.50-10.00) X 10*3/uL MCHC 30.4 L (32.0-37.0) d/dL RDW 16.9 H (11.5-14.5) % MPV 9.0 L (9.5-12.2) FL Neutrophils # 7.79 H (1.80-7.70) X 10*3/uL Monocytes # 1.02 H (0.20-1.00) X 10*3/uL Eosinophils # 0.38 H (0.04-0.35) X 10*3/uL Anion Gap 12.40 H (4.00-12.00) mmol/L BUN 30.1 H (9.0-27.0) mg/dL Creatinine 1.7 H (0.6-1.5) mg/dL Est GFR (CKD-EPI) 29 L (>=60) POC Glucose (mg/dL) (70-110) mg/dL Calcium 8.1 L (8.7-10.3) mg/dL Urine Appearance Cloudy H (Clear) Urine Protein Trace H (Negative) Urine Glucose (UA) 3+ H (Negative) Urine Blood Large H (Negative) Urine RBC 153 H (0-5) /hpf Urine WBC 6 H (0-5) /hpf Urine Bacteria Rare H (None) /hpf Urine Mucus Rare H (None) /hpf 04/22/23 04/22/23 04/22/23 Range/Units 11:38 16:55 20:49 WBC (4.50-10.00) X 10*3/uL MCHC (32.0-37.0) d/dL RDW (11.5-14.5) % MPV (9.5-12.2) FL Neutrophils # (1.80-7.70) X 10*3/uL Monocytes # (0.20-1.00) X 10*3/uL Eosinophils # (0.04-0.35) X 10*3/uL Anion Gap (4.00-12.00) mmol/L BUN (9.0-27.0) mg/dL Creatinine (0.6-1.5) mg/dL Est GFR (CKD-EPI) (>=60) POC Glucose (mg/dL) 159 H 163 H 181 H (70-110) mg/dL Calcium (8.7-10.3) mg/dL Urine Appearance (Clear) Urine Protein (Negative) Urine Glucose (UA) (Negative) Urine Blood (Negative) Urine RBC (0-5) /hpf Urine WBC (0-5) /hpf Urine Bacteria (None) /hpf Urine Mucus (None) /hpf 04/23/23 04/23/23 Range/Units 05:25 05:34 WBC (4.50-10.00) X 10*3/uL MCHC (32.0-37.0) d/dL RDW (11.5-14.5) % MPV (9.5-12.2) FL Neutrophils # (1.80-7.70) X 10*3/uL Monocytes # (0.20-1.00) X 10*3/uL Eosinophils # (0.04-0.35) X 10*3/uL Anion Gap (4.00-12.00) mmol/L BUN 29.3 H (9.0-27.0) mg/dL Creatinine 1.6 H (0.6-1.5) mg/dL Est GFR (CKD-EPI) 31 L (>=60) POC Glucose (mg/dL) 118 H (70-110) mg/dL Calcium 8.1 L (8.7-10.3) mg/dL Urine Appearance (Clear) Urine Protein (Negative) Urine Glucose (UA) (Negative) Urine Blood (Negative) Urine RBC (0-5) /hpf Urine WBC (0-5) /hpf Urine Bacteria (None) /hpf Urine Mucus (None) /hpf Microbiology - Last 24 Hours (Table) 04/17/23 18:35 Blood Culture - Final Blood 04/19/23 17:00 Gram Stain - Final Heel - Left Tissue Culture - Final Methicillin resist S. aureus Strep agalactiae - (group b) Enterococcus faecalis VRE Assessment and Plan Assessment: 1. Acute kidney injury most likely ATN currently nonoliguric. And there is element of obstructive uropathy as the bladder is significantly distended on CT of the abdomen and pelvis. This was performed on 04/20/2023. Initial bladder scan showed about 600 mL of urine however repeat bladder scans have been below 300. Patient has an external catheter. Blood pressure was low yesterday and this might explain the elevated creatinine today. I will continue with current dose of torsemide and repeat labs in a.m. 2. Recent acute kidney injury on 03/20/2023 with peak creatinine at 2.0 and decrease to 1.2 on 03/23/2023 3. Chronic kidney disease NKF stage III with baseline creatinine around 1.2 mg/dL secondary to nephrosclerosis 4. Left foot diabetic ulcer with wound cultures growing VRE and MRSA currently maintained on daptomycin and needing PICC line for long-term outpatient antibiotics 5. Type 2 diabetes maintained on farxiga Plan: Continue to monitor for urine retention Continue with current dose of torsemide Avoid drop in blood pressure Repeat labs in a.m. May continue with farxiga as well.
--- NOTE | 2023-04-23 11:25 | P.PN ---
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 Patient did have a bedside debridement of the left heel wound by vascular surgery did not mention extending down to the bone On today's evaluation that is 04/23/2023, the patient remains to be afebrile, the patient is breathing comfortably on room air, the patient denies chest pain or cough , the patient denies nausea or vomiting , patient has been complaining of some abdominal gas pain and did have 1 large loose stool last night per the nursing staff, the patient pain to the left heel has slightly decreased in intensity. Patient sed rate is 92 CRP is 9.0 as of 04/19/2023, white count of 10.61 as of 04/22/2023 creatinine is 1.6, blood cultures are currently pending local culture grew MRSA , VRE and Streptococcus agalactiae Objective - Vital Signs Vital signs: Vital Signs Temp 99.1 F 04/23/23 07:34 Pulse 68 04/23/23 07:34 Resp 16 04/23/23 07:34 BP 138/65 04/23/23 07:34 Pulse Ox 91 L 04/23/23 07:34 FiO2 Intake & Output 04/22/23 04/23/23 04/23/23 18:59 06:59 18:59 Intake Total 1080 480 Output Total 1900 1000 Balance -820 -520 Intake: Oral 1080 480 Output: Urine 1900 1000 Other: Voiding Method Incontinent Indwelling Catheter Indwelling Catheter External Catheter # Bowel Movements 1 1 - Exam GENERAL DESCRIPTION: Elderly female lying in bed in no distress RESPIRATORY SYSTEM: Unlabored breathing , decreased breath sounds at bases HEART: S1 S2 regular rate and rhythm ,no loud murmurs ABDOMEN: Soft , no tenderness EXTREMITIES: Left heel wound with some necrotic area surrounding swelling no foul-smelling drainage. - Labs CBC & Chem 7: 04/22/23 05:37 04/23/23 05:34 Labs: Abnormal Lab Results - Last 24 Hours (Table) 04/22/23 04/22/23 04/22/23 Range/Units 05:37 09:50 11:38 Anion Gap 12.40 H (4.00-12.00) mmol/L BUN 30.1 H (9.0-27.0) mg/dL Creatinine 1.7 H (0.6-1.5) mg/dL Est GFR (CKD-EPI) 29 L (>=60) POC Glucose (mg/dL) 159 H (70-110) mg/dL Calcium 8.1 L (8.7-10.3) mg/dL Urine Appearance Cloudy H (Clear) Urine Protein Trace H (Negative) Urine Glucose (UA) 3+ H (Negative) Urine Blood Large H (Negative) Urine RBC 153 H (0-5) /hpf Urine WBC 6 H (0-5) /hpf Urine Bacteria Rare H (None) /hpf Urine Mucus Rare H (None) /hpf 04/22/23 04/22/23 04/23/23 Range/Units 16:55 20:49 05:25 Anion Gap (4.00-12.00) mmol/L BUN (9.0-27.0) mg/dL Creatinine (0.6-1.5) mg/dL Est GFR (CKD-EPI) (>=60) POC Glucose (mg/dL) 163 H 181 H 118 H (70-110) mg/dL Calcium (8.7-10.3) mg/dL Urine Appearance (Clear) Urine Protein (Negative) Urine Glucose (UA) (Negative) Urine Blood (Negative) Urine RBC (0-5) /hpf Urine WBC (0-5) /hpf Urine Bacteria (None) /hpf Urine Mucus (None) /hpf 04/23/23 Range/Units 05:34 Anion Gap (4.00-12.00) mmol/L BUN 29.3 H (9.0-27.0) mg/dL Creatinine 1.6 H (0.6-1.5) mg/dL Est GFR (CKD-EPI) 31 L (>=60) POC Glucose (mg/dL) (70-110) mg/dL Calcium 8.1 L (8.7-10.3) mg/dL Urine Appearance (Clear) Urine Protein (Negative) Urine Glucose (UA) (Negative) Urine Blood (Negative) Urine RBC (0-5) /hpf Urine WBC (0-5) /hpf Urine Bacteria (None) /hpf Urine Mucus (None) /hpf Microbiology - Last 24 Hours (Table) 04/17/23 18:35 Blood Culture - Final Blood 04/19/23 17:00 Gram Stain - Final Heel - Left Tissue Culture - Final Methicillin resist S. aureus Strep agalactiae - (group b) Enterococcus faecalis VRE Assessment and Plan (1) Left leg cellulitis Current Visit: Yes Status: Acute Code(s): L03.116 - CELLULITIS OF LEFT LOWER LIMB SNOMED Code(s): 485268411 (2) Allergy to multiple antibiotics Current Visit: Yes Status: Acute Code(s): Z88.1 - ALLERGY STATUS TO OTHER ANTIBIOTIC AGENTS SNOMED Code(s): 511514731 (3) VRE (vancomycin resistant enterococcus) culture positive Current Visit: Yes Status: Acute Code(s): Z22.39 - CARRIER OF OTHER SPECIFIED BACTERIAL DISEASES SNOMED Code(s): 580536109 (4) Stage III pressure ulcer of left heel Current Visit: Yes Status: Acute Code(s): L89.623 - PRESSURE ULCER OF LEFT HEEL, STAGE 3 SNOMED Code(s): 42515819849695 Plan: 1patient with a 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 2patient with multiple antibiotic allergies that would limit the number of antibiotics safe to use 3mild renal insufficiency risk of nephrotoxicity from vancomycin, Patient did have improvement in her kidney function 4patient did have elevated inflammatory markers, bone scan cannot rule out Osteomyelitis at the left heel 5patient local culture did grew MRSA and VRE and Streptococcus agalactiae , for the patient is covered with the daptomycin plan for PICC line and outpatient IV antibiotics 6patient did have episode of loose stool complaining of abdominal pain nursing staff has been told to obtain a stool for C. diff if another loose stools and call if positive Dictation was produced using [employer] software. please excuse any grammatical, word or spelling errors.
--- NOTE | 2023-04-23 14:22 | P.PN ---
Subjective Progress Note Date: 04/23/23 83-year-old pleasant female was sent in by PCP because of possible infection of the pressure ulcers in her foot patient has to diabetic foot ulcers and a stage III left calcaneal pressure pressure ulcers with increased pain and some redness around the area. Patient had history of back on simvastatin enterococcus and MRSA in the past an outpatient cultures is showing the same, wound care and infectious disease were consulted. Patient has creatinine 1.48 which is close to her baseline patient has stage IIIB chronic kidney disease patient does have history of congestive heart failure patient has a normal ejection fraction has diastolic dysfunction presently not volume overloaded. Patient does have any fever chills patient doesn't have any leukocytosis. X-ray of the foot did not show any osteomyelitis. Patient was started on vancomycin infectious disease was consulted. 04/19/2023 Patient is evaluated today on the medical floor. Reports mild discomfort to the left heel. Planned for surgical debridement with vascular. Wound cultures pending. Continues on IV daptomycin. Patient had a bone scan today showing increased uptake on blood flow and blood pool with some subtle uptake on static images. Suggestive of soft tissue infection unable to rule out early ostemyelitis. ID following. Patient noted to have abdominal distention and no BM since monday. Bowel sounds are hypoactive. Concern for obstruction or ileus. 04/20/2023 Patient working with physical therapy up in the chair. Reports pain to the left heel. Status post surgical debridement at the bedside. Wound culture showing presumptive MRSA. Patient will require PICC line and IV antibiotics on discharge. 04/21/2023 Patient monitored on the medical floor. Resting in bed. Did have a large bowel movement, reports increased flatus. Abdomen remains distended and tympanic. Abdominal pelvis CT reveals mild wall thickening of the rectosigmoid colon which could reflect proctocolitis with subsequent distention of the redundant sigmoid colon. Remainder of the colon is mildly distended and scattered intracolonic debris. No evidence for free air or abscess. Distention of the urinary bladder. Patient was found to be retaining urine straight cathed for 800 mls of urine. Nephrology consultation for the [facility]. CRP and Sed rate are elevated. Patient scheduled to receive PICC line today. Wound culture of the left heel showing MRSA and strep group B. Patient remains on IV daptomycin with plans for outpatient antibiotics and wound care. 04/22/2023 Patient evaluated resting in bed. Reports pain to the left heel is controlled with current regimen. Having bowel movements, abdomen remains distended. Surgery following. Patient remains on IV daptomycin for positive wound culture which is showing MRSA, VRE, and Strep agalactaie. Creatinine up to 1.7 today. Patient was having urinary retention which required strait cath x 2. This seems to be improving. Most recent bladder scan today showing 500 mls in the urinary bladder. Hemodynamically patient is stable. 04/23/2023 Patient is evaluated today she is resting comfortable. Abdomen is still distended she is having bowel movements. General surgery following. Patient is on simethicone. White count 10.6 today, sodium 139, BUN 3.7 creatinine 1.6 today, magnesium 2.4. Having urinary retention, UA abnormal not suggestive of infection. ID following. Nephrology following. Hemodynamically she is stable. Review of Systems Constitutional: Denied any fatigue denied any fever. Cardio vascular: denied any chest pain, palpitations Gastrointestinal: No abdominal pain has distention, increasing flatus. Pulmonary: Denied any shortness of breath cough Neurologic denied any new focal deficits All inpatient medications were reviewed and appropriate changes in these medications as dictated in the interval history and assessment and plan. PHYSICAL EXAMINATION: GENERAL: The patient is alert and oriented x3, not in any acute distress. Well developed, well nourished. HEENT: Pupils are round and equally reacting to light. EOMI. No scleral icterus. No conjunctival pallor. Normocephalic, atraumatic. No pharyngeal erythema. No thyromegaly. CARDIOVASCULAR: S1 and S2 present. No murmurs, rubs, or gallops. PULMONARY: Chest is clear to auscultation, no wheezing or crackles. ABDOMEN: Soft, nontender, distended, hypoactive bowel sounds. Tympanic, No palpable organomegaly. MUSCULOSKELETAL: No joint swelling or deformity. EXTREMITIES: No cyanosis, clubbing, or pedal edema. NEUROLOGICAL: Gross neurological examination did not reveal any focal deficits. Generalized weakness SKIN: Lower heel ulceration and hyperpigmentation of the lower extremities. Assessment and plan -Infected left foot calcaneal ulcer status post surgical debridement cultures showing MRSA and VRE patient on IV daptomycin will need PICC line and IV antibiotics on discharge -Abdominal distention and constipation abdominal xray showing colonic ileus, CT showing mild wall thickening now having bowel movements. Gas drops are added for the distention. -Urinary retention strait cath x 2 -Congestive heart failure chronic diastolic dysfunction without any acute exacerbation, patient is euvolemic remains on home diuretics. -Chronic kidney disease stage III: creatinine at baseline -History of recent DVT for which patient is on 5 mg twice a day of eliquis -Type 2 diabetes mellitus: Resume home regimen along with sliding scale insulin and titrated as needed Accu-Cheks -Hypertension -History hyperlipidemia -DVT prophylaxis: On anticoagulation GI prophylaxis Full Code Plan Continue to bladder scan the patient Q6 and follow protocol for urinary retention. Local wound care in place for the left heel wound. Remains on IV antibiotics plan to get PICC line placed monday for IV antibiotics on discharge. PICC line placement delayed due to staff availibility to perform procedure. General surgery following for the abdominal distention. Gas drops have been added. Encourage IS. F/U labs in the AM. The impression and plan of care has been dictated by Carmela Giordano, Nurse Practitioner as directed. Dr. Jesús MD I have performed a history and physical examination and medical decision making of this patient, discussed the same with the dictator, and agree with the d ictators assessment and plan as written, documented as a scribe. Based on total visit time, I have performed more than 50% of this visit. Objective - Vital Signs Vital signs: Vital Signs Temp 99.1 F 04/23/23 07:34 Pulse 68 04/23/23 07:34 Resp 16 04/23/23 07:34 BP 138/65 04/23/23 07:34 Pulse Ox 91 L 04/23/23 07:34 FiO2 Intake & Output 04/22/23 04/23/23 04/23/23 18:59 06:59 18:59 Intake Total 1080 480 Output Total 1900 1000 Balance -820 -520 Intake: Oral 1080 480 Output: Urine 1900 1000 Other: Voiding Method Incontinent Indwelling Catheter Indwelling Catheter External Catheter # Bowel Movements 1 1 - Labs CBC & Chem 7: 04/22/23 05:37 04/23/23 05:34 Labs: Abnormal Lab Results - Last 24 Hours (Table) 04/22/23 04/22/23 04/22/23 Range/Units 05:37 05:37 09:50 WBC 10.61 H (4.50-10.00) X 10*3/uL MCHC 30.4 L (32.0-37.0) d/dL RDW 16.9 H (11.5-14.5) % MPV 9.0 L (9.5-12.2) FL Neutrophils # 7.79 H (1.80-7.70) X 10*3/uL Monocytes # 1.02 H (0.20-1.00) X 10*3/uL Eosinophils # 0.38 H (0.04-0.35) X 10*3/uL Anion Gap 12.40 H (4.00-12.00) mmol/L BUN 30.1 H (9.0-27.0) mg/dL Creatinine 1.7 H (0.6-1.5) mg/dL Est GFR (CKD-EPI) 29 L (>=60) POC Glucose (mg/dL) (70-110) mg/dL Calcium 8.1 L (8.7-10.3) mg/dL Urine Appearance Cloudy H (Clear) Urine Protein Trace H (Negative) Urine Glucose (UA) 3+ H (Negative) Urine Blood Large H (Negative) Urine RBC 153 H (0-5) /hpf Urine WBC 6 H (0-5) /hpf Urine Bacteria Rare H (None) /hpf Urine Mucus Rare H (None) /hpf 04/22/23 04/22/23 04/22/23 Range/Units 11:38 16:55 20:49 WBC (4.50-10.00) X 10*3/uL MCHC (32.0-37.0) d/dL RDW (11.5-14.5) % MPV (9.5-12.2) FL Neutrophils # (1.80-7.70) X 10*3/uL Monocytes # (0.20-1.00) X 10*3/uL Eosinophils # (0.04-0.35) X 10*3/uL Anion Gap (4.00-12.00) mmol/L BUN (9.0-27.0) mg/dL Creatinine (0.6-1.5) mg/dL Est GFR (CKD-EPI) (>=60) POC Glucose (mg/dL) 159 H 163 H 181 H (70-110) mg/dL Calcium (8.7-10.3) mg/dL Urine Appearance (Clear) Urine Protein (Negative) Urine Glucose (UA) (Negative) Urine Blood (Negative) Urine RBC (0-5) /hpf Urine WBC (0-5) /hpf Urine Bacteria (None) /hpf Urine Mucus (None) /hpf 04/23/23 Range/Units 05:25 WBC (4.50-10.00) X 10*3/uL MCHC (32.0-37.0) d/dL RDW (11.5-14.5) % MPV (9.5-12.2) FL Neutrophils # (1.80-7.70) X 10*3/uL Monocytes # (0.20-1.00) X 10*3/uL Eosinophils # (0.04-0.35) X 10*3/uL Anion Gap (4.00-12.00) mmol/L BUN (9.0-27.0) mg/dL Creatinine (0.6-1.5) mg/dL Est GFR (CKD-EPI) (>=60) POC Glucose (mg/dL) 118 H (70-110) mg/dL Calcium (8.7-10.3) mg/dL Urine Appearance (Clear) Urine Protein (Negative) Urine Glucose (UA) (Negative) Urine Blood (Negative) Urine RBC (0-5) /hpf Urine WBC (0-5) /hpf Urine Bacteria (None) /hpf Urine Mucus (None) /hpf Microbiology - Last 24 Hours (Table) 04/17/23 18:35 Blood Culture - Final Blood 04/19/23 17:00 Gram Stain - Final Heel - Left Tissue Culture - Final Methicillin resist S. aureus Strep agalactiae - (group b) Enterococcus faecalis VRE Assessment and Plan Time with Patient: Less than 30
[2023-04-23 16:33] LABS: Glucose,Whole Blood 145 mg/dL (70-110)
[2023-04-23 20:19] LABS: Glucose,Whole Blood 203 mg/dL (70-110)
[2023-04-24 06:03] LABS: Glucose,Whole Blood 108 mg/dL (70-110)
[2023-04-24] MEDS: INSULIN ASPART (NovoLOG) 100 UNIT/ML VIAL SQ SCH ×3 (06:07→17:08)
[2023-04-24] MEDS: LIDOCAINE 1% INJ 10MG/ML (20 ML MDV) SQ ONE ×2 (08:04→08:19)
[2023-04-24] MEDS ORDERED: IOPAMIDOL-250 100ML BTL INTRAARTER ONE (08:20)
--- NOTE | 2023-04-24 08:44 | P.OP ---
Date of Procedure: 04/24/23 Description of Procedure: Preoperative Diagnosis: Need for long-term IV antibiotic access. Postoperative Diagnosis: Same. Basilic vein stenosis Procedure(s) Performed: Ultrasound-guided cannulation left basilic vein. Left upper extremity venogram of the basilic vein Ultrasound-guided left cephalic vein access Central venogram via selective Catheter in the subclavian vein Insertion of peripherally inserted central catheter under fluoroscopic guidance. Anesthesia: local 1% lidocaine plain Surgeon: Herber Estimated Blood Loss (ml): 5 IV fluids (ml): 0 Urine output (ml): 0 Pathology: none sent Condition: stable Disposition: no change Indications for Procedure: Patient requires long-term IV antibiotics as an outpatient patient is offered a PICC line to allow for intravenous administration of antibiotics. Description of Procedure: Patient was brought to the special procedure suite. The left upper extremity sterilely prepped and draped in usual manner. Ultrasound was utilized to identify the basilic vein which was normally compressible free of visible thrombus. Permenant image was stored. 1% Xylocaine was utilized for local anesthesia tissues overlying the vein. Through this anesthetized area and with the aid of ultrasound a micropuncture needle was utilized to cannulate the vein. Once cannulated, Softip guidewire was advanced into the vein. The needle was withdrawn and a micropuncture sheath and dilator advanced over the guidewire. Further attempts to pass a guidewire in the more proximal direction were met with resistance therefore the wire was removed and a venogram was performed showing a small caliber vein at the level of near the axilla with essentially high-grade stenosis versus short segment occlusion. Multiple attempts were made to cross to ensure was not the valve which were unsuccessful. The wire and sheath were removed and pressure was held. The ultrasound was then utilized to identify the cephalic vein which is normally compressible and free of thrombus. Permanent stored. Local anesthetic was placed micro-access needle was used to gain access. The guidewire was advanced into the level of the chest. At that level of the guidewire would take a cephalad turn and would not enter into the SVC therefore at this time the sheath was placed, the PICC catheter was placed into the subclavian vein and a picture was taken. There is multiple areas of collaterals, the central venous system appeared open. Multiple catheters and wires were used to access and direction the wire into the superior vena cava. This was eventually successful and the catheter was cut to 38 cm. Over the wire, the PICC line was placed into the cavoatrial junction without resistance. The sheath was peeled away. Blood was easily withdrawn through the catheter and the catheter was then flushed with heparinized saline solution and secured to the skin. Patient tolerated procedure well and was returned to their room in satisfactory and stable condition.
[2023-04-24] MEDS: DOCUSATE 100 MG CAP PO SCH (09:43)
[2023-04-24] MEDS: SPIRONOLACTONE 25 MG TAB PO SCH (09:43)
[2023-04-24] MEDS: TORSEMIDE 20 MG TAB PO SCH (09:43)
[2023-04-24] MEDS: APIXABAN 5 MG TAB PO SCH (09:44)
[2023-04-24] MEDS: SIMETHICONE 80 MG CHEWABLE PO SCH ×3 (09:44→17:09)
[2023-04-24] MEDS: ASPIRIN 81 MG PO SCH (09:44)
[2023-04-24] MEDS: LACTULOSE 20 GM/30 ML CUP PO SCH (09:44)
[2023-04-24] MEDS: METOPROLOL SUCCINATE (ER) 25 MG TAB.ER.24H PO SCH (09:44)
[2023-04-24] MEDS: DAPAGLIFLOZIN PROPANEDIOL 5 MG TABLET PO SCH (10:09)
--- NOTE | 2023-04-24 10:39 | P.PN ---
Subjective Patient is seen in follow-up for acute kidney injury on chronic kidney disease. Creatinine 1.6 yesterday. On oral diuretics. Nonoliguric. Has Craven catheter. Oral intake fair. Hemodynamically stable. Vital signs are stable. General: No acute distress. HEENT: Head exam is unremarkable. LUNGS: No audible rhonchi or wheezes. HEART: Rate and Rhythm are regular. ABDOMEN: Nontender. EXTREMITITES: 1+ edema. Left foot drop. Objective - Vital Signs Vital signs: Vital Signs Temp 98.5 F 04/24/23 07:43 Pulse 96 04/24/23 07:43 Resp 18 04/24/23 07:43 BP 122/60 04/24/23 07:43 Pulse Ox 96 04/24/23 07:43 FiO2 Intake & Output 04/23/23 04/24/23 04/24/23 18:59 06:59 18:59 Intake Total 1080 480 Output Total 1800 800 1 Balance -720 -320 -1 Intake: Oral 1080 480 Output: Urine 1800 800 Stool 1 Other: Voiding Method Indwelling Catheter Indwelling Catheter Indwelling Catheter # Bowel Movements 2 1 1 - Labs CBC & Chem 7: 04/22/23 05:37 04/23/23 05:34 Labs: Abnormal Lab Results - Last 24 Hours (Table) 04/23/23 04/23/23 04/23/23 Range/Units 05:34 16:31 20:18 BUN 29.3 H (9.0-27.0) mg/dL Creatinine 1.6 H (0.6-1.5) mg/dL Est GFR (CKD-EPI) 31 L (>=60) POC Glucose (mg/dL) 145 H 203 H (70-110) mg/dL Calcium 8.1 L (8.7-10.3) mg/dL Assessment and Plan Plan: Assessment: 1. Acute kidney injury secondary to ATN and component of urinary retention. Creatinine 1.6 yesterday. Nonoliguric. No hydronephrosis noted on CAT scan on 04/20/2023. 2. Chronic kidney disease stage III with baseline creatinine 1.2 dated 03/23/2023. Suspect nephrosclerosis. 3. Volume overload. 4. Urinary retention. Has Craven catheter. 5. Left heel nonhealing wound. Vascular surgery and ID following. Plan: Maintain oral diuretics. Encourage oral intake. Add Flomax. Continue to monitor renal function and urine output. \
--- NOTE | 2023-04-24 10:41 | IR ---
EXAMINATION TYPE: IR cvc insert >=5 years DATE OF EXAM: 04/24/2023 COMPARISON: NONE HISTORY: ABX, 4FR RT 38CM CEPHALIC PICC, 8.5 min FT, 2.73 Gycm2 DAP. Fluoroscopy was provided to the referring clinician.
[2023-04-24] MEDS ORDERED: TAMSULOSIN 0.4 MG CAP.ER.24H PO SCH (11:00)
[2023-04-24 11:31] LABS: Glucose,Whole Blood 215 mg/dL (70-110)
[2023-04-24 11:35] LABS: Basophils % (A) 0 %; Eosinophils # (A) 0.4 k/uL (0-0.7); Eosinophils % (A) 4 %; HCT 40.4 % (34.0-46.0); HGB 12.5 gm/dL (11.4-16.0); Hypochromasia Moderate; Lymphocytes # (A) 1.2 k/uL (1.0-4.8); Lymphocytes % (A) 10 %; MCH 28.3 pg (25.0-35.0); MCV 91.2 fL (80.0-100.0); Mean Platelet Volume 7.5; Monocytes # (A) 0.8 k/uL (0-1.0); Monocytes % (A) 7 %; Neutrophils # (A) 9.1 k/uL (1.3-7.7); Neutrophils % (A) 77 %; Platelet Count 280 k/uL (150-450); RBC 4.43 m/uL (3.80-5.40); RDW 15.7 % (11.5-15.5); WBC 11.8 k/uL (3.8-10.6)
[2023-04-24 11:48] LABS: African American GFR (CKD) 42 (>60 ml/min/1.73 sqM); Anion Gap 7 mmol/L; Blood Urea Nitrogen 32 mg/dL (7-17); Carbon Dioxide 28 mmol/L (22-30); Chloride 103 mmol/L (98-107); Glucose 182 mg/dL (74-99); Non-African American GFR(CKD) 36 (>60 ml/min/1.73 sqM); Potassium 3.6 mmol/L (3.5-5.1); Sodium 138 mmol/L (137-145)
--- NOTE | 2023-04-24 12:37 | P.PN ---
Subjective Progress Note Date: 04/24/23 Principal diagnosis: L leg cellulitis and left heel infected wound Patient is a 83-year-old female with a past medical history significant for diabetes mellitus hypertension hyperlipidemia patient did have history of chronic nonhealing wound to the left heel area for the patient is currently treated in the outpatient setting by the visiting physician, patient was recently noticed to have reopening of her left heel wound culture were done in the outpatient setting that grew VRE patient subsequently presented to hospital with worsening pain to the left heel along with swelling redness to the left leg. Patient did have a bedside debridement of the left heel wound by vascular surgery did not mention extending down to the bone On today's evaluation that is 04/24/2023, the patient continues to be afebrile, the patient is breathing comfortably , the patient denies chest pain or cough , the patient denies having any nausea or vomiting , has been complaining of some rumbling abdominal pain and also having diarrhea Patient white count is 11.8, creatinine is 1.33, blood cultures are currently pending local culture grew MRSA , VRE and Streptococcus agalactiae Objective - Vital Signs Vital signs: Vital Signs Temp 98.5 F 04/24/23 07:43 Pulse 96 04/24/23 07:43 Resp 18 04/24/23 07:43 BP 122/60 04/24/23 07:43 Pulse Ox 96 04/24/23 07:43 FiO2 Intake & Output 04/23/23 04/24/23 04/24/23 18:59 06:59 18:59 Intake Total 1080 480 Output Total 1800 800 1 Balance -720 -320 -1 Intake: Oral 1080 480 Output: Urine 1800 800 Stool 1 Other: Voiding Method Indwelling Catheter Indwelling Catheter Indwelling Catheter # Bowel Movements 2 1 1 - Exam GENERAL DESCRIPTION: Elderly female lying in bed in no distress RESPIRATORY SYSTEM: Unlabored breathing , decreased breath sounds at bases HEART: S1 S2 regular rate and rhythm ,no loud murmurs ABDOMEN: Soft , no tenderness EXTREMITIES: Left heel wound with some necrotic area surrounding swelling no foul-smelling drainage. - Labs CBC & Chem 7: 04/24/23 11:11 04/24/23 11:11 Labs: Abnormal Lab Results - Last 24 Hours (Table) 04/23/23 04/23/23 04/24/23 Range/Units 16:31 20:18 11:11 WBC (3.8-10.6) k/uL RDW (11.5-15.5) % Neutrophils # (1.3-7.7) k/uL BUN 32 H (7-17) mg/dL Creatinine 1.33 H (0.52-1.04) mg/dL Glucose 182 H (74-99) mg/dL POC Glucose (mg/dL) 145 H 203 H (70-110) mg/dL Calcium 8.0 L (8.4-10.2) mg/dL 04/24/23 04/24/23 Range/Units 11:11 11:30 WBC 11.8 H (3.8-10.6) k/uL RDW 15.7 H (11.5-15.5) % Neutrophils # 9.1 H (1.3-7.7) k/uL BUN (7-17) mg/dL Creatinine (0.52-1.04) mg/dL Glucose (74-99) mg/dL POC Glucose (mg/dL) 215 H (70-110) mg/dL Calcium (8.4-10.2) mg/dL Assessment and Plan (1) Left leg cellulitis Current Visit: Yes Status: Acute Code(s): L03.116 - CELLULITIS OF LEFT LOWER LIMB SNOMED Code(s): 909747878 (2) Allergy to multiple antibiotics Current Visit: Yes Status: Acute Code(s): Z88.1 - ALLERGY STATUS TO OTHER ANTIBIOTIC AGENTS SNOMED Code(s): 971461195 (3) VRE (vancomycin resistant enterococcus) culture positive Current Visit: Yes Status: Acute Code(s): Z22.39 - CARRIER OF OTHER SPECIFIED BACTERIAL DISEASES SNOMED Code(s): 843325270 (4) Stage III pressure ulcer of left heel Current Visit: Yes Status: Acute Code(s): L89.623 - PRESSURE ULCER OF LEFT HEEL, STAGE 3 SNOMED Code(s): 90312015659696 Plan: 1patient with a 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 2patient with multiple antibiotic allergies that would limit the number of antibiotics safe to use 3mild renal insufficiency risk of nephrotoxicity from vancomycin, Patient did have improvement in her kidney function, daptomycin does need to be adjusted to every 24 hours 4patient did have elevated inflammatory markers, bone scan cannot rule out Osteomyelitis at the left heel 5patient local culture did grew MRSA and VRE and Streptococcus agalactiae , patient to continue with daptomycin PICC line has been placed 6patient is having diarrhea and abdominal pain nursing staff has been told yesterday to obtain a stool for C. diff , however has not been collected we will order stool for C. diff and treat if positive Dictation was produced using [employer] dictation software. please excuse any grammatical, word or spelling errors. Time with Patient: Less than 30
[2023-04-24 13:45] VITALS: BP 111/64; PULSE 68; RESP 20; TEMP 98.7
[2023-04-24] MEDS: DAPTOmycin 500 MG in SODIUM CHLORIDE 0.9% 50 ML IVPB SCH (14:09)
--- NOTE | 2023-04-24 15:02 | P.PN ---
Subjective Progress Note Date: 04/24/23 CHIEF COMPLAINT: Left foot ulcer HISTORY OF PRESENT ILLNESS: Surgical service following regards to ileus. Patient having bowel movements. She reports her abdomen is softer. Denies any abdominal pain. She's currently on lactulose twice a day. Tolerating regular diet. PHYSICAL EXAM: VITAL SIGNS: Reviewed. GENERAL: Well-developed in no acute distress. HEENT: No sclera icterus. Extraocular movements grossly intact. Moist buccal mucosa. Head is atraumatic, normocephalic. ABDOMEN: Soft. Distended. Nontender. NEUROLOGIC: Alert and oriented. Cranial nerves II through XII grossly intact. ASSESSMENT: 1. Ileus with abdominal distention resolved 2. Mild wall thickening of the rectosigmoid sigmoid colon with possible proctocolitis noted on CAT scan 3. Constipation 4. Diabetic heel ulcer status post debridement with vascular surgery PLAN: -Continue regular diet -Continue lactulose -Continue antibiotics -Continue supportive care Physician Paper Cup Handle Machine Operator note has been reviewed by physician. Signing provider agrees with the documented findings, assessment, and plan of care. Objective - Vital Signs Vital signs: Vital Signs Temp 98.7 F 04/24/23 13:10 Pulse 68 04/24/23 13:10 Resp 20 04/24/23 13:10 BP 111/64 04/24/23 13:10 Pulse Ox 98 04/24/23 13:10 FiO2 Intake & Output 04/23/23 04/24/23 04/24/23 18:59 06:59 18:59 Intake Total 1080 480 Output Total 1800 800 701 Balance -720 -813 -700 Intake: Oral 1080 480 Output: Urine 1800 800 700 Stool 1 Other: Voiding Method Indwelling Catheter Indwelling Catheter Indwelling Catheter # Bowel Movements 2 1 1 - Labs CBC & Chem 7: 04/24/23 11:11 04/24/23 11:11 Labs: Abnormal Lab Results - Last 24 Hours (Table) 04/23/23 04/23/23 04/24/23 Range/Units 16:31 20:18 11:11 WBC (3.8-10.6) k/uL RDW (11.5-15.5) % Neutrophils # (1.3-7.7) k/uL BUN 32 H (7-17) mg/dL Creatinine 1.33 H (0.52-1.04) mg/dL Glucose 182 H (74-99) mg/dL POC Glucose (mg/dL) 145 H 203 H (70-110) mg/dL Calcium 8.0 L (8.4-10.2) mg/dL 04/24/23 04/24/23 Range/Units 11:11 11:30 WBC 11.8 H (3.8-10.6) k/uL RDW 15.7 H (11.5-15.5) % Neutrophils # 9.1 H (1.3-7.7) k/uL BUN (7-17) mg/dL Creatinine (0.52-1.04) mg/dL Glucose (74-99) mg/dL POC Glucose (mg/dL) 215 H (70-110) mg/dL Calcium (8.4-10.2) mg/dL
[2023-04-24 16:53] LABS: Glucose,Whole Blood 177 mg/dL (70-110)
--- NOTE | 2023-04-25 07:12 | CDI ---
Documentation Clarification Form Date: 04/25/23 From: Layla Cochran Admit Date: 04/17/2023 07:24:00 PM Patient Name: Eden Lyons Visit Number: [id number] Discharge Date: 04/24/2023 05:20:00 PM ATTENTION: The Clinical Documentation Specialists (CDI) and [employer] Coding Staff appreciate your assistance in clarifying documentation. Please respond to the clarification below the line at the bottom and electronically sign. The CDI & [employer] Coding staff will review the response and follow-up if needed. Please note: Queries are made part of the Legal Health Record. If you have any questions, please contact the author of this message via ITS. Dr. Koby Choe, An excisional debridement is documented Additional clarification regarding the procedure is requested. History/Risk Factors: T2DM w CKD, foot ulcer, HTN w CKD IIIb & chronic diastolic CHF, ileus Clinical Indicators: Pressure ulcer of left heel with infection Treatment: Procedure the left heel were prepped and draped applied usual manner 1% lidocaine forinfectedusing sharp knife weexcisethe plantar aspectwounddown to separate tissue and the fact all the different layers tissue wasexcisedwith knife there were somebleedingpoint filter controlled by silver nitrate stick medihoney gel applied to thewoundandpressuredressing was applied. Please clarify the type of procedure performed: Specially the depth of the excisional debridement: [ ] Skin [ ] Subcutaneous tissue and fascia [ ] Muscle [ [ Bone [ ] Other; please specify [ ] Unable to determine Five elements required for accurate and compliant documentation of a debridement: Technique used (e.g., excisional, excised, cutting, brushing, jet lavage etc.) Instrument(s) used (e.g., scalpel, curette, etc.) Nature of the tissue removed (e.g., necrotic, devitalized tissues, non-viable tissue, etc.) Appearance and size of the wound (e.g., down to fresh bleeding tissue, 7cm x 10cm, etc.) Depth of the debridement* (e.g., skin, subcutaneous tissue, fascia, muscle, bone, etc.) MTDD
--- NOTE | 2023-04-25 07:19 | CDI ---
Documentation Clarification Form Date: 04/25/23 From: Layla Cochran Admit Date: 04/17/2023 07:24:00 PM Patient Name: Eden Lyons Visit Number: [id number] Discharge Date: 04/24/2023 05:20:00 PM ATTENTION: The Clinical Documentation Specialists (CDI) and [facility] Coding Staff appreciate your assistance in clarifying documentation. Please respond to the clarification below the line at the bottom and electronically sign. The CDI & [facility] Coding staff will review the response and follow-up if needed. Please note: Queries are made part of the Legal Health Record. If you have any questions, please contact the author of this message via ITS. Dr. Clementine Espinosa, Cellulitis is documented in the ED Note, H&P consults and progress notes. Additional clarification regarding the type of cellulitis is requested. History/risk factors: T2DM w CKD, foot ulcer, HTN w CKD IIIb & chronic diastolic CHF, ileus Clinical Indicators: Patient with a chronic nonhealing wound to the left heel area now with concern for secondarycellulitisin this patient outpatient culture has been positive for VRE and MRSA. He also has T2DM with foot ulcer. Treatment: IV antibiotics and excisional debridement Please clarify the etiology of the cellulitis, if known: [ x ] Cellulitis is a diabetic skin complication [ ] Cellulitis is not a diabetic skin complication [ ] Other, please specify: [ ] Unable to determine MTDD
--- NOTE | 2023-04-25 07:28 | CDI ---
Documentation Clarification Form Date: 04/25/23 From: Layla Cochran Admit Date: 04/17/2023 07:24:00 PM Patient Name: Eden Lyons Visit Number: [id number] Discharge Date: 04/24/2023 05:20:00 PM ATTENTION: The Clinical Documentation Specialists (CDI) and [facility] Coding Staff appreciate your assistance in clarifying documentation. Please respond to the clarification below the line at the bottom and electronically sign. The CDI & [facility] Coding staff will review the response and follow-up if needed. Please note: Queries are made part of the Legal Health Record. If you have any questions, please contact the author of this message via ITS. Dr. Clementine Espinosa, Bone scan shows possible early osteomyelitis on 04/19. Additional clarification regarding the cause and acuity of the osteomyelitis is requested. History/Risk Factors: T2DM w CKD, foot ulcer, HTN w CKD IIIb & chronic diastolic CHF, ileus Clinical Indicators: 83-year-old pleasant female was sent in by PCP because of possibleinfectionof thepressure ulcersin her foot patient has todiabetic foot ulcersand a stage III left calcanealpressurepressure ulcerswith increasedpainand some redness around the area. Labs: Enterococcus faecalis VRE, MRSA &Strep agalactiae Treatment: IV antibiotics and excisional debridement Please clarify the acuity and etiology of the osteomyelitis, if known: Acuity: [ x ] Acute osteomyelitis [ ] Chronic osteomyelitis [ ] Subacute osteomyelitis [ ] Unable to Determine Cause: [ ] Diabetic [ ] Other (please specify): MTDD
--- NOTE | 2023-04-26 13:55 | CDI ---
Documentation Clarification Form Date: 04/25/23 From: Layla Cochran Admit Date: 04/17/2023 07:24:00 PM Patient Name: Eden Lyons Visit Number: [id number] Discharge Date: 04/24/2023 05:20:00 PM ATTENTION: The Clinical Documentation Specialists (CDI) and [facility] Coding Staff appreciate your assistance in clarifying documentation. Please respond to the clarification below the line at the bottom and electronically sign. The CDI & [facility] Coding staff will review the response and follow-up if needed. Please note: Queries are made part of the Legal Health Record. If you have any questions, please contact the author of this message via ITS. Dr. Koby Choe, An excisional removal of layers of left heel is documented Additional clarification regarding the procedure is requested. History/Risk Factors: T2DM w CKD, foot ulcer, HTN w CKD IIIb & chronic diastolic CHF, ileus Clinical Indicators: Pressure ulcer of left heel with infection Treatment: Procedure the left heel were prepped and draped applied usual manner 1% lidocaine forinfectedusing sharp knife weexcisethe plantar aspectwounddown to separate tissue and the fact all the different layers tissue wasexcisedwith knife there were somebleedingpoint filter controlled by silver nitrate stick medihoney gel applied to thewoundandpressuredressing was applied. Please clarify the type of procedure performed: Specially the depth of the excisional removal of layers of left heel: [ ] Skin [ X ] Subcutaneous tissue and fascia [ ] Muscle [ [ Bone [ ] Other; please specify [ ] Unable to determine MTDD
--- NOTE | 2023-04-26 19:14 | P.DS ---
Providers Date of admission: 04/17/23 19:24 Attending physician: Nolan Valverde Consults: 04/17/23 19:23 Consult Physician Routine Consulting Provider: Zaida Rivera Consult Reason/Comments: Nonhealing foot wound Do you want consulting provider notified?: Yes 04/18/23 11:59 Consult Physician Routine Consulting Provider: Koby Choe Consult Reason/Comments: Known patient, pressue ulcer stage 3 to left calcaneus Do you want consulting provider notified?: Yes 04/19/23 18:45 Consult Physician Routine Consulting Provider: Dashawn Miller Consult Reason/Comments: ileus Do you want consulting provider notified?: Yes 04/20/23 09:18 Consult Physician Routine Consulting Provider: Dashawn Miller Consult Reason/Comments: ileus Do you want consulting provider notified?: Already Contacted 04/20/23 13:32 Consult Physician Routine Consulting Provider: Sophia Bernal Consult Reason/Comments: needs picc line. Need you to tell us which arm. Do you want consulting provider notified?: Yes Primary care physician: [facility] Course: Finial Diagnosis -Infected left foot calcaneal diabetic foot ulcer status post surgical debridement cultures showing MRSA and VRE patient on IV daptomycin will need PICC line and IV antibiotics on discharge -Abdominal distention and constipation abdominal xray showing colonic ileus, CT showing mild wall thickening now having bowel movements. Gas drops are added for the distention. -Urinary retention strait cath x 2 -Congestive heart failure chronic diastolic dysfunction without any acute exacerbation, patient is euvolemic remains on home diuretics. -Chronic kidney disease stage IIIB: creatinine at baseline -History of recent DVT for which patient is on 5 mg twice a day of eliquis -Type 2 diabetes mellitus: Resume home regimen along with sliding scale insulin and titrated as needed Accu-Cheks -Hypertension -History hyperlipidemia Discharge Disposition Patient is stable for discharge home. Patient has been cleared by PT for home [facility] home care. Patient to continue on IV daptomycin through pICC line and follow up Dr. Rivera. Patient has indwelling catheter in place and discharge home with hudson catheter given information on follow up with urology. Patient was also started on flomax. Local wound care to continue with honey alginate to the left heel wound, with saline moistened gauze, dry gauze rolled gauze and paper tape. Change MWF and follow up with wound care. Repeat labs in 2 to3 days. Hospital Course This is an 83-year-old pleasant female was sent in by PCP because of possible infection of the pressure ulcers in her foot; patient has to diabetic foot ulcers and a stage III left calcaneal pressure pressure ulcers with increased pain and some redness around the area. Patient had history of pseudomonas and enterococcus and MRSA in the past an outpatient cultures is showing the same, wound care and infectious disease were consulted. Patient has creatinine 1.48 which is close to her baseline patient has stage IIIB chronic kidney disease. Patient doesnt have any fever chills patient doesn't have any leukocytosis. X- ray of the foot did not show any osteomyelitis. Patient was started on vancomycin infectious disease was consulted. Patient had bone scan which did reveal increased uptake on blood flow and blood pool with some subtle uptake on static images. Findings appear more suggestive for soft tissue infection although early ostomyelitis should be considered. Patient was then seen in consultation by vascular surgery Dr. Choe and underwent surgical debridement of the left heel wound. Cultures show MRSA, speudomonas and enterococcus. Patient was noted to have abdominal distention and found to have urinary retention and also ileus noted on chest xray. General surgery was consulted. Had abdominal pelvis CT showing proctocolitis with subsequent distention of the redundant sigmoid colon. The remainder of the colon is also mildly distended with scattered intracolonic debris. No evidence of free air or abscess. Distention of urinary bladder which was treated with indwelling catheter placement. General surgery treating for constipation and now patient with loose stools. ID wanted C.Diff sample which was not collected. Patient did receive PICC line and was sent on IV daptomycin. Most recent labs showing white count 11.8, hgb 12.5. Sodium 138, potassium 3.6, BUN 32, creatinine 1.33. Blood glucose 170s. Denying chest pain, denying shortness of breath. No abdominal pain no nausea does report loose stools. Reports pain to the left lower extremity is controlled. Lungs are clear S1 S2 auscultated abdomen is soft and nontender with normoactive bowel sounds. Patient is hemodynamically stable. Will be discharged home. Please see medication reconciliation for a list of current medication. Thank you for allowing us to participate in the care of this patient. The impression and plan of care has been dictated by Carmela Giordano Nurse Practitioner as directed. Dr. Jesús MD I have performed a history and physical examination and medical decision making of this patient, discussed the same with the dictator, and agree with the dictators assessment and plan as written, documented as a scribe. Based on total visit time, I have performed more than 50% of this visit. Patient Condition at Discharge: Stable Plan - Discharge Summary Discharge Rx Participant: No New Discharge Prescriptions: New Tamsulosin [Flomax] 0.4 mg PO PC-BRKFST #30 cap Simethicone Chew [Mylicon Chew] 40 mg PO QID #16 tab HYDROcodone/APAP 5-325MG [[place] 5-325] 1 each PO Q6HR PRN 3 Days #12 tab PRN Reason: Pain Lactulose [Cephulac] 30 gm PO BID PRN #250 ml PRN Reason: Constipation Continue Torsemide [Demadex] 20 mg PO BID Aspirin [Adult Low Dose Aspirin EC] 81 mg PO DAILY Atorvastatin [Lipitor] 20 mg PO HS Spironolactone [Aldactone] 12.5 mg PO DAILY Metoprolol Succinate (ER) [Toprol XL] 25 mg PO DAILY Docusate Sodium 250 mg PO DAILY Potassium Chloride ER [K-Dur 20] 20 meq PO BID Empagliflozin [Jardiance] 10 mg PO DAILY Apixaban [Eliquis] 5 mg PO BID Discharge Medication List Aspirin [Adult Low Dose Aspirin EC] 81 mg PO DAILY 01/31/19 [History] Torsemide [Demadex] 20 mg PO BID 01/31/19 [History] Atorvastatin [Lipitor] 20 mg PO HS 08/27/21 [History] Docusate Sodium 250 mg PO DAILY 03/20/23 [History] Empagliflozin [Jardiance] 10 mg PO DAILY 03/20/23 [History] Metoprolol Succinate (ER) [Toprol XL] 25 mg PO DAILY 03/20/23 [History] Potassium Chloride ER [K-Dur 20] 20 meq PO BID 03/20/23 [History] Spironolactone [Aldactone] 12.5 mg PO DAILY 03/20/23 [History] Apixaban [Eliquis] 5 mg PO BID 04/17/23 [History] HYDROcodone/APAP 5-325MG [[place] 5-325] 1 each PO Q6HR PRN 3 Days #12 tab 04/24/23 [Rx] Lactulose [Cephulac] 30 gm PO BID PRN #250 ml 04/24/23 [Rx] Simethicone Chew [Mylicon Chew] 40 mg PO QID #16 tab 04/24/23 [Rx] Tamsulosin [Flomax] 0.4 mg PO PC-BRKFST #30 cap 04/24/23 [Rx] Follow up Appointment(s)/Referral(s): Alexx Olmstead MD [Primary Care Provider] - 04/26/23 12:40 pm (At [place] location) Home,[place] [facility] [NON-STAFF] - As Needed Arnie Orantes MD [STAFF PHYSICIAN] - 1 Week (Office stated they will call patient with follow-up appointment date and time.) [facility], [REFERRING] - As Needed (Will deliver to your home tomorrow night between 6-8p) Zaida Rivera MD [STAFF PHYSICIAN] - 05/03/23 1:30 pm Ambulatory/Diagnostic Orders: Basic Metabolic Panel [LAB.AMB] Location: None Selected Complete Blood Count w/diff [LAB.AMB] Time Frame: 3 Days, Location: None Selected Patient Instructions/Handouts: Hudson Catheter Placement and Care (DC), Pressure Injury (DC) Activity/Diet/Wound Care/Special Instructions: Continue with daily local woundcare to the left heel with medihoney gel and gauze wrap. See Dr Choe in the woundcare office Follow up with urology on discharge please make follow up appointment and follow instructions regarding indwelling catheter removal. Follow up with Dr Rivera Repeat labs in 2 to 3 days and f/u with your PCP. Continue on lactulose twice a day as needed for constipation Continue IV antibiotics on discharge Discharge Disposition: HOME WITH HOME HEALTH SERVICES
--- NOTE | 2023-05-11 05:48 | CDI ---
Documentation Clarification Form Date: 05/11/23 From: Layla Cochran Admit Date: 04/17/2023 07:24:00 PM Patient Name: Eden Lyons Visit Number: [id number] Discharge Date: 04/24/2023 05:20:00 PM ATTENTION: The Clinical Documentation Specialists (CDI) and [facility] Coding Staff appreciate your assistance in clarifying documentation. Please respond to the clarification below the line at the bottom and electronically sign. The CDI & [facility] Coding staff will review the response and follow-up if needed. Please note: Queries are made part of the Legal Health Record. If you have any questions, please contact the author of this message via ITS. Dr. Clementine Espinosa, Acute kidney failure with tubular necrosis is documented in the Dr. Bernal Nephrology consult which may lack sufficient clinical evidence/support in the medical record. Additional clarification is requested. History/Risk Factors: Pressure ulcer left heel stage 3, T2DM w multiple complications, HLD, HTN w chronic diastolic CHF & CKD III, Clinical Indicators: Serum creatinine has been at 1.4 mg/dL with GFR at 37 mL per minute. Review of previous labs show serum creatinine of 1.2 on 03/23/2023 and 1.6 on 03/22/2023.It appears that patient had anacute kidney injuryon 814 with peak creatinine at 2.0. Patient currently has an external catheter.24 hour urine documented at 2.6 L. [700 98.43 24= 2.6] Treatment: Straight cath patient and continue to monitor forurine retention. Continue with Torsemide, repeat labs, check UA Please clarify if Acute kidney failure with tubular necrosis is a valid diagnosis? [ x] Yes Acute kidney failure with tubular necrosis is present as evidence by (additional clinical support): [ ] No, Acute kidney failure with tubular necrosis is ruled out [ ] Other (please specify diagnosis) [ ] Unable to determine This query is not necessary patient's creatinine was 2 and improved to 1.2 which is chronic kidney disease MTDD
== END 2023-04-24 17:20 | disposition home health service (06) | DRG 570 ==
LOC: EC 17:22 → 4SSUR 19:24
PROVIDERS: ADMIT Internal Medicine; ATTEND Internal Medicine
PROC: 0JBR0ZZ Excision of Left Foot Subcutaneous Tissue and Fascia, Open Approach (ICD-10-PCS; principal; 2023-04-19)
PROC: 05H633Z Insertion of Infusion Device into Left Subclavian Vein, Percutaneous Approach (ICD-10-PCS; 2023-04-24)
DX: L89.623 Pressure ulcer of left heel, stage 3 (principal); N17.0 Acute kidney failure with tubular necrosis; I13.0 Hypertensive heart and chronic kidney disease with heart failure and stage 1 through stage 4 chronic kidney disease, or unspecified chronic kidney disease; I50.32 Chronic diastolic (congestive) heart failure; Z16.21 Resistance to vancomycin; I87.1 Compression of vein; K56.7 Ileus, unspecified; L03.116 Cellulitis of left lower limb; M86.172 Other acute osteomyelitis, left ankle and foot; E11.628 Type 2 diabetes mellitus with other skin complications; E11.22 Type 2 diabetes mellitus with diabetic chronic kidney disease; E11.69 Type 2 diabetes mellitus with other specified complication; B95.2 Enterococcus as the cause of diseases classified elsewhere; Z79.4 Long term (current) use of insulin; E78.5 Hyperlipidemia, unspecified; N18.32 Chronic kidney disease, stage 3b; M21.372 Foot drop, left foot; N13.9 Obstructive and reflux uropathy, unspecified; H40.9 Unspecified glaucoma; K44.9 Diaphragmatic hernia without obstruction or gangrene; R32 Unspecified urinary incontinence; Z91.199 Patient's noncompliance with other medical treatment and regimen due to unspecified reason; Z79.01 Long term (current) use of anticoagulants; Z79.82 Long term (current) use of aspirin; Z79.84 Long term (current) use of oral hypoglycemic drugs; Z79.899 Other long term (current) drug therapy; Z71.6 Tobacco abuse counseling; Z87.891 Personal history of nicotine dependence; Z86.14 Personal history of Methicillin resistant Staphylococcus aureus infection; Z86.718 Personal history of other venous thrombosis and embolism
CPT/HCPCS: 36415; 36573; 74019; 74176; 78315; 80048; 80053; 81001; 83605; 83735; 85025; 85652; 86140; 87040; 87070; 87077; 87186; 87205; 96361; 96365; 96366; 96375; 99285

== ENCOUNTER 2023-10-29 23:19 | Inpatient (IN) | payer MEDICARE ==
--- NOTE | 2023-10-30 02:33 | ED ---
General Adult HPI - General Chief complaint: Skin/Abscess/Foreign Body Stated complaint: wound left foot weakness Time Seen by Provider: 10/30/23 01:03 Source: EMS Mode of arrival: EMS Limitations: no limitations - History of Present Illness Initial comments: 83-year-old female brought by his son initially noting that this was for dressing change as he states he normally helps with dressing changes on a daily basis additionally states that wound care visits 3 times a week however states over the past week has had difficulties doing this as he has been having some pain in his hands. However upon speaking to patient she does note over the past 3 days has had some worsening pain of her left lower extremity. No fever or chills. No chest pain or shortness of breath. No other complaints at this time. - Related Data Home Medications Medication Instructions Recorded Confirmed Aspirin [Adult Low Dose Aspirin EC] 81 mg PO DAILY 01/31/19 04/17/23 Torsemide [Demadex] 20 mg PO BID 01/31/19 04/17/23 Atorvastatin [Lipitor] 20 mg PO HS 08/27/21 04/17/23 Docusate Sodium 250 mg PO DAILY 03/20/23 04/17/23 Empagliflozin [Jardiance] 10 mg PO DAILY 03/20/23 04/17/23 Metoprolol Succinate (ER) [Toprol 25 mg PO DAILY 03/20/23 04/17/23 XL] Potassium Chloride ER [K-Dur 20] 20 meq PO BID 03/20/23 04/17/23 Spironolactone [Aldactone] 12.5 mg PO DAILY 03/20/23 04/17/23 Apixaban [Eliquis] 5 mg PO BID 04/17/23 04/17/23 Previous Rx's Medication Instructions Recorded HYDROcodone/APAP 5-325MG [[place] 1 each PO Q6HR PRN 3 Days #12 tab 04/24/23 5-325] Lactulose [Cephulac] 30 gm PO BID PRN #250 ml 04/24/23 Simethicone Chew [Mylicon Chew] 40 mg PO QID #16 tab 04/24/23 Tamsulosin [Flomax] 0.4 mg PO PC-BRKFST #30 cap 04/24/23 Allergies Allergy/AdvReac Type Severity Reaction Status Date / Time cefepime Allergy Anaphylaxis Verified 10/29/23 23:29 latex Allergy Rash/red Verified 10/29/23 23:29 skin Penicillins Allergy Rash/Hives Verified 10/29/23 23:29 Review of Systems ROS Statement: Those systems with pertinent positive or pertinent negative responses have been documented in the HPI. ROS Other: All systems not noted in ROS Statement are negative. 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, VRE Date of last positivie culture/infection: 04/19/23 MRSA and VRE MDRO Source:: Left Heel Past Surgical History: Appendectomy, Section, Cholecystectomy, Heart Catheterization, Hysterectomy Additional Past Surgical History / Comment(s): pericardial window, surgery mir eyes for glaucoma, cyst removal on abdomen Past Anesthesia/Blood Transfusion Reactions: Blood Transfusion Reaction Additional Past Anesthesia/Blood Transfusion Reaction / Comment(s): reaction to blood transfusion 25-30 yrs ago-"I got red and they pulled it out" Past Psychological History: No Psychological Hx Reported Smoking Status: Former smoker Past Alcohol Use History: None Reported Past Drug Use History: None Reported - Past Family History Father Family Medical History: Cancer Brother(s) Family Medical History: Cancer General Exam Limitations: no limitations General appearance: alert, in no apparent distress Eye exam: Present: normal appearance Neck exam: Present: normal inspection Respiratory exam: Present: normal lung sounds bilaterally Cardiovascular Exam: Present: regular rate GI/Abdominal exam: Present: soft Extremities exam: Present: tenderness (Does also appear to have some eschar ), other (Bilateral lower extremities show venous stasis changes. Left lower extremity does show a large wound to the lateral side of it measuring approximately 10 cm in length. With the distally approximately 5 cm which tapers up gradually. Has some surrounding erythema but no significant warmth. No puru) Neurological exam: Present: alert Course Vital Signs 10/29/23 23:27 Temperature 97.3 F L Pulse Rate 64 Respiratory 18 Rate Blood Pressure 132/53 O2 Sat by Pulse 100 Oximetry Medical Decision Making - Medical Decision Making Was pt. sent in by a medical professional or institution (, PA, HOME CARE AND HOME HEALTH AIDES TEACHER, urgent care, hospital, or [facility]...) When possible be specific @ -No Did you speak to anyone other than the patient for history (EMS, parent, family, police, friend...)? What history was obtained from this source @ -No Did you review nursing and triage notes (agree or disagree)? Why? @ -I reviewed and agree with nursing and triage notes Were old charts reviewed (outside hosp., previous admission, EMS record, old EKG, old radiological studies, urgent care reports/EKG's, [facility] records)? Report findings @ -No old charts were reviewed Differential Diagnosis (chest pain, altered mental status, abdominal pain women, abdominal pain men, vaginal bleeding, weakness, fever, dyspnea, syncope, headache, dizziness, GI bleed, back pain, seizure, CVA, palpatations, mental health, musculoskeletal)? @ -Differential Musculoskeletal Muscular strain, contusion, ligament sprain, fracture, arthritis, septic arthritis, bursitis, cellulitis, muscle spasm, nerve compression, DVT, arterial occlusion, herpes zoster, electrolyte abnormality, tumor.... This is not meant to be in all inclusive list EKG interpreted by me (3pts min.). @ -As above X-rays interpreted by me (1pt min.). @ -X-ray Interpreted me which revealed no evidence of osteomyelitis. CT interpreted by me (1pt min.). @ -None done U/S interpreted by me (1pt. min.). @ -None done What testing was considered but not performed or refused? (CT, X-rays, U/S, labs)? Why? @ -None What meds were considered but not given or refused? Why? @ -None Did you discuss the management of the patient with other professionals (prof martino i.e. , PA, HOME CARE AND HOME HEALTH AIDES TEACHER, lab, RT, psych nurse, family welfare social work professor, health care law specialist, teacher, security flex utility officer, disease case manager)? Give summary @ -No Was smoking cessation discussed for >3mins.? @ -No Was critical care preformed (if so, how long)? @ -No Were there social determinants of health that impacted care today? How? (Homelessness, low income, unemployed, alcoholism, drug addiction, transportation, low edu. Level, literacy, decrease access to med. care, halfway, rehab)? @ -No Was there de-escalation of care discussed even if they declined (Discuss DNR or withdrawal of care, Hospice)? DNR status @ -No What co-morbidities impacted this encounter? (DM, HTN, Smoking, COPD, CAD, Cancer, CVA, ARF, Chemo, Hep., AIDS, mental health diagnosis, sleep apnea, morbid obesity)? @ -None Was patient admitted / discharged? Hospital course, mention meds given and route, prescriptions, significant lab abnormalities, going to OR and other pertinent info. @ -Admission 83-year-old female presenting to the ED with complaints of wound to her left lower extremity. Reports has had this since August however over the past few days seems to have been worsening in nature. No fever or chills. On exami nation does have a large wound primarily to the lateral side of her left leg however does appear to have some eschar formation on the dorsal aspect of her left lower leg as well. Patient will be admitted. Blood cultures pending. Wound cultures pending. Laboratory studies at this time are pending except for lactic acid which was 1.1. Patient empirically started on antibiotics here in the ED. Wound care and infectious disease consult placed. Undiagnosed new problem with uncertain prognosis? @ -No Drug Therapy requiring intensive monitoring for toxicity (Heparin, Nitro, Insulin, Cardizem)? @ -No Were any procedures done? @ -No Diagnosis/symptom? @ -Wound to left lower extremity Acute, or Chronic, or Acute on Chronic? @ -Acute on chronic Uncomplicated (without systemic symptoms) or Complicated (systemic symptoms)? @ -Uncomplicated Side effects of treatment? @ -No Exacerbation, Progression, or Severe Exacerbation? @ -No Poses a threat to life or bodily function? How? (Chest pain, [place], [place], pneumonia, PE, COPD, DKA, ARF, appy, cholecystitis, CVA, Diverticulitis, Homicidal, Suicidal, threat to staff... and all critical care pts) @ -Possibly however at this time unlikely - Lab Data Lab Results 10/30/23 Range/Units 02:07 Plasma Lactic Acid Kar[place] 1.1 (0.7-2.0) mmol/L Disposition Clinical Impression: Wound of left leg Disposition: ADMITTED IP TO THIS HOSP Condition: Fair Referrals: Alexx Olmstead MD [Primary Care Provider] - 1-2 days Time of Disposition: 03:25
--- NOTE | 2023-10-30 02:54 | XR ---
EXAMINATION TYPE: XR tibia fibula LT DATE OF EXAM: 10/30/2023 CLINICAL HISTORY: Pain and swelling TECHNIQUE: Two views of the left leg are obtained. COMPARISON: Prior left leg x-ray August 30, 2021 FINDINGS: Osseous structures remain demineralized. There is no acute fracture or dislocation seen in the left tibia or fibula. Degenerative changes in the left knee most prominent medial tibiofemoral c ompartment is redemonstrated. Ankle mortise symmetry is maintained. No new suspicious bony destructio n to suggest acute osteomyelitis. Overlying soft tissue is unremarkable. IMPRESSION: As above. No significant change from most recent prior.
[2023-10-30] MEDS ORDERED: NALOXONE 0.4 MG/ML 1 ML VIAL IV PRN (03:25)
[2023-10-30] MEDS ORDERED: ONDANSETRON 4 MG/2 ML VIAL IVP PRN (03:25)
[2023-10-30] MEDS ORDERED: VANCOMYCIN IV PER PHARMACY 1 EACH MISC MISCELLANE PRN (03:27)
[2023-10-30 03:37] LABS: Anisocytosis Slight; Basophils # (A) 0.1 k/uL (0-0.2); Basophils % (A) 1 %; Eosinophils # (A) 0.3 k/uL (0-0.7); Eosinophils % (A) 3 %; HCT 36.8 % (34.0-46.0); HGB 10.6 gm/dL (11.4-16.0); Hypochromasia Marked; Lymphocytes # (A) 1.2 k/uL (1.0-4.8); Lymphocytes % (A) 9 %; MCH 24.6 pg (25.0-35.0); MCHC 28.9 g/dL (31.0-37.0); MCV 84.9 fL (80.0-100.0); Mean Platelet Volume 8.1; Monocytes % (A) 7 %; Neutrophils # (A) 10.5 k/uL (1.3-7.7); Neutrophils % (A) 79 %; Platelet Count 372 k/uL (150-450); RBC 4.33 m/uL (3.80-5.40); RDW 16.8 % (11.5-15.5); WBC 13.3 k/uL (3.8-10.6)
[2023-10-30] MEDS: VANCOMYCIN 1,500 MG in SODIUM CHLORIDE 0.9% 500 ML 500 ML IVPB STA (04:10)
--- NOTE | 2023-10-30 04:37 | P.HPIM ---
History of Present Illness H&P Date: 10/30/23 Patient is a 83-year-old female with a PMH of diastolic CHF, chronic venous stasis with left lower extremity diabetic ulcers status post surgical debridement with history of MRSA and VRE, type II DM, CKD stage IIIb, hypertension, and hyperlipidemia who presents to the emergency room with complaints of worsening left lower extremity ulcerations. Patient notes that over the past 2 to 3 months, she has noticed that her swelling and wounds on her leg have progressed despite multiple visits by visiting wound care nursing per week. She denies any pain at the site. Also denies fever, chills, chest pain, shortness of breath, nausea, vomiting. Left tibia/fibula x-ray revealed no acute abnormalities with laboratory evaluation remarkable for leukocytosis of 13.3, hemoglobin 10.6, and lactic acid 1.1. ED documentation reviewed and case discussed with ED provider. Review of systems: Pertinent positives and negatives as discussed in HPI, a complete review of systems was performed and all other systems are negative. Physical examination: Vital signs reviewed General: non toxic, no distress, appears at stated age, normal weight Derm: Extensive left lower extremity ulceration below the knee with significant venous stasis dermatitis and areas of unstageable ulceration with surrounding erythema Head: atraumatic, normocephalic, symmetric Eyes: EOMI, no lid lag, anicteric sclera, pupils equal round reactive to light ENT: Nose and ears atraumatic Neck: No cervical lymphadenopathy, trachea midline, supple Mouth: no lip lesion, mucus membranes moist Cardiovascular: S1S2 reg, no murmur, positive dorsalis pedis pulse bilateral, no edema Lungs: CTA bilateral, no rhonchi, no rales, no accessory muscle use Abdominal: soft, nontender to palpation, no guarding Ext: muscle strength 3 out of 5 in all 4 extremities grossly, no gross muscle atrophy, no contractures, Neuro: CN II-XI grossly intact, no gross focal neuro deficits Psych: Alert, oriented, appropriate affect Assessment: Left lower extremity extensive ulceration with history of MRSA and VRE Normocytic anemia Chronic conditions: Type II DM, diastolic CHF, CKD, hypertension, hyperlipidemia Imaging: Left tibia/fibula x-ray revealed no acute abnormalities Data Review: Laboratory evaluation was remarkable for WBC count 13.3, hemoglobin 10.6, MCV 84.9, and lactic acid 1.1 Plan: Wound care and infectious disease consults Follow-up wound cultures Start patient on daptomycin based upon previous wound cultures from 04/29 Continue with home medications once reconciled DVT prophylaxis: Lovenox subcu The patient is admitted with an anticipated greater than 2 midnight stay for evaluation of left lower extremity ulcerations CODE STATUS: Full Code Discussed with: Patient Anticipated discharge place: Home 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, VRE Date of last positivie culture/infection: 04/19/23 MRSA and VRE MDRO Source:: Left Heel Past Surgical History: Appendectomy, Section, Cholecystectomy, Heart Catheterization, Hysterectomy Additional Past Surgical History / Comment(s): pericardial window, surgery mir eyes for glaucoma, cyst removal on abdomen Past Anesthesia/Blood Transfusion Reactions: Blood Transfusion Reaction Additional Past Anesthesia/Blood Transfusion Reaction / Comment(s): reaction to blood transfusion 25-30 yrs ago-"I got red and they pulled it out" Past Psychological History: No Psychological Hx Reported Smoking Status: Former smoker Past Alcohol Use History: None Reported Past Drug Use History: None Reported - Past Family History Father Family Medical History: Cancer Brother(s) Family Medical History: Cancer Medications and Allergies Home Medications Medication Instructions Recorded Confirmed Type Aspirin [Adult Low Dose Aspirin EC] 81 mg PO DAILY 01/31/19 04/17/23 History Torsemide [Demadex] 20 mg PO BID 01/31/19 04/17/23 History Atorvastatin [Lipitor] 20 mg PO HS 08/27/21 04/17/23 History Docusate Sodium 250 mg PO DAILY 03/20/23 04/17/23 History Empagliflozin [Jardiance] 10 mg PO DAILY 03/20/23 04/17/23 History Metoprolol Succinate (ER) [Toprol 25 mg PO DAILY 03/20/23 04/17/23 History XL] Potassium Chloride ER [K-Dur 20] 20 meq PO BID 03/20/23 04/17/23 History Spironolactone [Aldactone] 12.5 mg PO DAILY 03/20/23 04/17/23 History Apixaban [Eliquis] 5 mg PO BID 04/17/23 04/17/23 History HYDROcodone/APAP 5-325MG [[place] 1 each PO Q6HR PRN 3 Days #12 tab 04/24/23 Rx 5-325] Lactulose [Cephulac] 30 gm PO BID PRN #250 ml 04/24/23 Rx Simethicone Chew [Mylicon Chew] 40 mg PO QID #16 tab 04/24/23 Rx Tamsulosin [Flomax] 0.4 mg PO PC-BRKFST #30 cap 04/24/23 Rx Allergies Allergy/AdvReac Type Severity Reaction Status Date / Time cefepime Allergy Anaphylaxis Verified 10/29/23 23:29 latex Allergy Rash/red Verified 10/29/23 23:29 skin Penicillins Allergy Rash/Hives Verified 10/29/23 23:29 Physical Exam Vitals: Vital Signs Temp Pulse Resp BP Pulse Ox 10/30/23 04:12 72 16 142/69 98 10/29/23 23:27 97.3 F L 64 18 132/53 100 Intake and Output 10/29/23 10/29/23 10/30/23 14:59 22:59 06:59 Other: Weight 99.79 kg Results CBC & Chem 7: 10/30/23 02:07 Labs: Abnormal Lab Results - Last 24 Hours (Table) 10/30/23 Range/Units 02:07 WBC 13.3 H (3.8-10.6) k/uL Hgb 10.6 L (11.4-16.0) gm/dL MCH 24.6 L (25.0-35.0) pg MCHC 28.9 L (31.0-37.0) g/dL RDW 16.8 H (11.5-15.5) % Neutrophils # 10.5 H (1.3-7.7) k/uL
[2023-10-30] MEDS: DAPTOmycin 500 MG in SODIUM CHLORIDE 0.9% 50 ML IVPB SCH (05:50)
[2023-10-30] MEDS: HYDROmorphone 0.5 MG/0.5 ML SYRINGE IVP PRN (05:52)
[2023-10-30 07:34] LABS: ALT 9 U/L (4-34); AST 15 U/L (14-36); African American GFR (CKD) 44 (>60 ml/min/1.73 sqM); Albumin 1.9 g/dL (3.5-5.0); Alkaline Phosphatase 140 U/L (38-126); Anion Gap 6 mmol/L; Blood Urea Nitrogen 33 mg/dL (7-17); Carbon Dioxide 17 mmol/L (22-30); Chloride 119 mmol/L (98-107); Glucose 82 mg/dL (74-99); Non-African American GFR(CKD) 38 (>60 ml/min/1.73 sqM); Potassium 3.9 mmol/L (3.5-5.1); Sodium 142 mmol/L (137-145); Total Bilirubin 0.5 mg/dL (0.2-1.3); Total Protein 4.7 g/dL (6.3-8.2)
[2023-10-30 07:46] LABS: Calcium 5.8 mg/dL (8.4-10.2)
[2023-10-30 07:46] LABS: Glucose,Whole Blood 91 mg/dL (70-110)
[2023-10-30] MEDS: INSULIN ASPART (NovoLOG) 100 UNIT/ML VIAL SQ SCH (07:51)
[2023-10-30] MEDS: CALCIUM GLUCONATE IN NACL 1 GM in SALINE 1 100ML.BAG IVPB ONE (09:21)
[2023-10-30] MEDS: ENOXAPARIN 30 MG/0.3 ML SYRINGE SQ SCH (09:26)
[2023-10-30 12:08] LABS: Glucose,Whole Blood 206 mg/dL (70-110)
--- NOTE | 2023-10-30 12:24 | P.CONS ---
History of Present Illness - Reason for Consult Consult date: 10/30/23 wound care - History of Present Illness This is a 89-year-old patient being seen in the ER for nonhealing ulceration of left lower extremity. Patient states that she follows with home MD Radha Mock comes on Mondays and does debridements and applies dressings. Patient does not know the dressings that she typically uses she states that she has had multiple dressings. Patient has a stage II pressure ulcer to the left calcaneus with significant amount of slough and nonviable tissue and eschar present tunneling is noted to the site. Minimal granulation seen to the wound bed. Patient also has multiple open ulcerations to the left lower extremity measuring approximately 20 x 16 x 0.3 cm with muscle involvement without necrosis. Patient has minimal slough and nonviable tissue present granulation seen throughout. Patient's past medical history significant for diabetes, hyperlipidemia, hypertension, stage I kidney failure, she is former smoker. Review Of Systems: Constitutional: No fever, no chills, no night sweats. No weight change. No weakness, fatigue or lethargy. No daytime sleepiness. Integumentary:reports wounds, no lesions. No rash or pruritus. No unusual bruising. No change in hair or nails. Physical exam: General Appearance: Alert, cooperative, no distress, appears stated age. Skin: See HPI all other Skin color, texture, tugor normal, no rashes or lesions. Neurologic: Alert oriented x3 Assessment: 1. Nonpressure ulceration left calf with muscle involvement 2. Nonpressure ulceration left lower extremity with muscle involvement without necrosis 3. Stage II pressure ulcer left calcaneus 4. Diabetic foot ulcer 5. Diabetes with skin ulceration Plan: 1. Apply absorptive silver, saline moist gauze, dry gauze, rolled gauze and secure with paper tape. Thank you for the consultation any questions please contact the wound care center DNP note has been reviewed and discussed with Dr. Peter and the impression and plan of care has been directed as dictated. 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, 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 Source:: Left Heel Past Surgical History: Appendectomy, Section, Cholecystectomy, Heart Catheterization, Hysterectomy Additional Past Surgical History / Comment(s): pericardial window, surgery mir eyes for glaucoma, cyst removal on abdomen Past Anesthesia/Blood Transfusion Reactions: Blood Transfusion Reaction Additional Past Anesthesia/Blood Transfusion Reaction / Comm: reaction to blood transfusion 25-30 yrs ago-"I got red and they pulled it out" Past Psychological History: No Psychological Hx Reported Smoking Status: Former smoker Past Alcohol Use History: None Reported Past Drug Use History: None Reported - Past Family History Father Family Medical History: Cancer Brother(s) Family Medical History: Cancer Medications and Allergies Home Medications Medication Instructions Recorded Confirmed Type Torsemide [Demadex] 20 mg PO DAILY 01/31/19 10/30/23 History Atorvastatin [Lipitor] 20 mg PO HS 08/27/21 10/30/23 History Empagliflozin [Jardiance] 10 mg PO DAILY 03/20/23 10/30/23 History Metoprolol Succinate (ER) [Toprol 25 mg PO DAILY 03/20/23 10/30/23 History XL] Spironolactone [Aldactone] 25 mg PO DAILY 03/20/23 10/30/23 History Apixaban [Eliquis] 5 mg PO BID 04/17/23 10/30/23 History Buprenorphine [Butrans 5 MCG/HR] 1 patch TRANSDERM SA 10/30/23 10/30/23 History Doxycycline Hyclate 100 mg PO BID 10/30/23 10/30/23 History Famotidine [Pepcid] 20 mg PO DAILY 10/30/23 10/30/23 History Gabapentin [Neurontin] 100 mg PO TID 10/30/23 10/30/23 History Glimepiride [Amaryl] 1 mg PO DAILY 10/30/23 10/30/23 History HYDROcodone/APAP 10-325MG [[place] 1 tab PO Q3H PRN 10/30/23 10/30/23 History 10-325] amLODIPine [Norvasc] 5 mg PO DAILY 10/30/23 10/30/23 History hydrALAZINE HCL [Apresoline] 25 mg PO TID 10/30/23 10/30/23 History Allergies Allergy/AdvReac Type Severity Reaction Status Date / Time cefepime Allergy Anaphylaxis Verified 10/30/23 10:16 latex Allergy Rash/red Verified 10/30/23 10:16 skin Penicillins Allergy Rash/Hives Verified 10/30/23 10:16 Physical Exam Vitals: Vital Signs Temp Pulse Resp BP Pulse Ox 10/30/23 09:18 70 20 139/68 98 10/30/23 07:49 70 18 118/61 93 L 10/30/23 06:21 70 16 130/58 98 10/30/23 04:12 72 16 142/69 98 10/29/23 23:27 97.3 F L 64 18 132/53 100 Intake and Output 10/29/23 10/30/23 10/30/23 22:59 06:59 14:59 Other: Weight 99.79 kg Results CBC & Chem 7: 10/30/23 02:07 10/30/23 07:00 Labs: Abnormal Lab Results - Last 24 Hours (Table) 10/30/23 10/30/23 10/30/23 Range/Units 02:07 07:00 12:06 WBC 13.3 H (3.8-10.6) k/uL Hgb 10.6 L (11.4-16.0) gm/dL MCH 24.6 L (25.0-35.0) pg MCHC 28.9 L (31.0-37.0) g/dL RDW 16.8 H (11.5-15.5) % Neutrophils # 10.5 H (1.3-7.7) k/uL Chloride 119 H (98-107) mmol/L Carbon Dioxide 17 L (22-30) mmol/L BUN 33 H (7-17) mg/dL Creatinine 1.28 H (0.52-1.04) mg/dL POC Glucose (mg/dL) 206 H (70-110) mg/dL Calcium 5.8 L* (8.4-10.2) mg/dL Alkaline Phosphatase 140 H (38-126) U/L Total Protein 4.7 L (6.3-8.2) g/dL Albumin 1.9 L (3.5-5.0) g/dL Assessment and Plan (1) Non-pressure chronic ulcer of left calf with muscle involvement without evidence of necrosis Current Visit: Yes Status: Acute Code(s): L97.225 - NON-PRS CHR ULCER OF LEFT CALF WITH MSL INVL W/O EVD OF NECR SNOMED Code(s): 16591466570941057 (2) Non-pressure chronic ulcer of left lower leg with muscle involvement without evidence of necrosis Current Visit: Yes Status: Acute Code(s): L97.925 - NON-PRS CHR ULC UNSP PRT L LW LEG W MSL INVL W/O EVD OF NECR SNOMED Code(s): 54954889183315603 (3) Stage II pressure ulcer of left heel Current Visit: Yes Status: Acute Code(s): L89.622 - PRESSURE ULCER OF LEFT HEEL, STAGE 2 SNOMED Code(s): 89393035526748 (4) Type 2 diabetes mellitus with other skin ulcer Current Visit: Yes Status: Acute Code(s): E11.622 - TYPE 2 DIABETES MELLITUS WITH OTHER SKIN ULCER; L98.499 - NON-PRESSURE CHRONIC ULCER OF SKIN OF SITES W UNSP SEVERITY SNOMED Code(s): 522483698 (5) Type 2 diabetes mellitus with foot ulcer Current Visit: No Status: Acute Code(s): E11.621 - TYPE 2 DIABETES MELLITUS WITH FOOT ULCER; L97.509 - NON-PRESSURE CHRONIC ULCER OTH PRT UNSP FOOT W UNSP SEVERITY SNOMED Code(s): 341741924
[2023-10-30] MEDS: DAPAGLIFLOZIN PROPANEDIOL 5 MG TABLET PO SCH (13:17)
[2023-10-30] MEDS: METOPROLOL SUCCINATE (ER) 25 MG TAB.ER.24H PO SCH (13:18)
[2023-10-30] MEDS: TORSEMIDE 20 MG TAB PO SCH (13:18)
[2023-10-30] MEDS: FAMOTIDINE 20 MG TAB PO SCH (13:18)
[2023-10-30] MEDS: APIXABAN 5 MG TAB PO SCH (13:18)
[2023-10-30] MEDS: amLODIPine 5 MG TAB PO SCH (13:20)
[2023-10-30] MEDS: SPIRONOLACTONE 25 MG TAB PO SCH (13:20)
--- NOTE | 2023-10-30 14:56 | P.PN ---
Subjective Progress Note Date: 10/30/23 Hospital course: Patient is a very pleasant 76-year-old female with a past medical history of CAD, chronic diastolic heart failure, hypertension, hyperlipidemia, type II [id number]-[id number] diabetes mellitus, chronic kidney disease stage IIIb, history of DVTs on Eliquis and peripheral vascular deficiency with chronic venous stasis and diabetic ulcers status postsurgical debridement with history of MRSA and VRE. She presented to the emergency department with complaints of worsening left lower extremity ulcerations despite outpatient care and weekly visits from wound care nurse. She underwent evaluation in the emergency department. Vital signs upon arrival show blood pressure 132/53, heart rate 64, respiratory rate 18, temp 97.3 F, and SpO2 100% on room air. Labs were c ompleted and reviewed. CBC showing leukocytosis with WBC count of 13.3 and microchromic anemia with hemoglobin of 10.6 and MCH of 24.6. BMP revealing mild metabolic acidosis with chloride of 119, bicarb 17, anion gap 6, and renal function consistent with stage IIIb chronic kidney disease with BUN of 33, creatinine 1.28, and GFR of 38. Blood glucose was 82. Lactate was 1.1. Calcium was 5.8 with albumin of 1.9 showing corrected calcium of 7.9. Liver profile showing elevated alkaline phosphatase of 140. X-ray left tib-fib showing osseous structures remained demineralized with no new suspicious bony destruction to suggest acute osteomyelitis per radiology report when compared to previous imaging completed 08/30/2021. Patient was started on IV antibiotics and admitted under our services with consultation to infectious disease. Blood cultures and wound culture was sent to lab for analysis. Physical exam: Vital signs reviewed and stable. General: Nontoxic, no distress and appears stated age. Derm: Skin warm and dry, normal coloration for ethnicity. Head: Atraumatic, normocephalic and symmetric. Eyes: EOMs intact, no lid lag, and anicteric sclera Mouth: no lip lesions, mucus membranes moist Cardiovascular: regular rate and rhythm with normal S1S2, systolic murmur Lungs: Respirations even, regular, and unlabored on room air. Lungs CTA bilaterally, no rhonchi, no rales, no wheezing, and no accessory muscle usage. Abdominal: soft, nontender to palpation, no guarding, no appreciable organomegaly. Chronic Cra[place] catheter. Ext: Bilateral lower extremities with moderate swelling and scaling of skin appearing chronic, however left lower extremity with stage II pressure ulcer to heal with multiple stage II ulcers to the left calf with surrounding erythema and drainage. Neuro: Speech clear, face symmetrical and CN II-XII grossly intact with no noted focal neuro deficits Psych: Alert and oriented to person, place, time, and situation. Appropriate and pleasant affect. Assessment and Plan of Care: Left lower extremity ulcers, multiple with concerns of infection and recent history of MRSA and VRE Continue IV antibiotics with daptomycin 500 mg every 24 hours pending further culture results and recommendations by infectious disease. Infectious disease consulted Vascular surgery consulted, Dr. Choe as patient follows outpatient and he performed previous debridement Symptomatic care and pain management. Type II [id number] diabetes mellitus Continue Farxiga and patient placed on glycemic protocol with NovoLog sliding scale. Hypocalcemia Critical calcium 5.8 with a corrected calcium of 7.9 secondary to albumin of 1.9. Order placed for calcium gluconate 1 g IVPB. History of CAD Chronic diastolic heart failure Hypertension Hyperlipidemia Patient to continue daily medication regimen with Norvasc 5 mg daily, Farxiga 5 mg daily, hydralazine 25 mg 3 times daily, metoprolol 25 mg daily, Aldactone 25 mg daily, and torsemide 20 mg daily. History of DVTs Continue Eliquis 5 mg twice daily. CODE STATUS: Full code DVT prophylaxis: Eliquis Anticipated discharge date: Clinical course to determine Anticipated discharge place: Clinical course to determine Patient was seen independently by Nurse Pracitioner. This document was prepared using [employer] dictation software. Please allow for errors in tempering machine operator, while rare they do occur. I reviewed the documentation as provided by the NINI above, who is the original author of this note. I agree with the documented assessment and plan, with the following changes: none Objective - Vital Signs Vital signs: Vital Signs Temp 97.3 F L 10/29/23 23:27 Pulse 70 10/30/23 07:49 Resp 18 10/30/23 07:49 BP 118/61 10/30/23 07:49 Pulse Ox 93 L 10/30/23 07:49 FiO2 Intake & Output 10/29/23 10/30/23 10/30/23 18:59 06:59 18:59 Weight 99.79 kg - Labs CBC & Chem 7: 10/30/23 02:07 10/30/23 07:00 Labs: Abnormal Lab Results - Last 24 Hours (Table) 10/30/23 10/30/23 Range/Units 02:07 07:00 WBC 13.3 H (3.8-10.6) k/uL Hgb 10.6 L (11.4-16.0) gm/dL MCH 24.6 L (25.0-35.0) pg MCHC 28.9 L (31.0-37.0) g/dL RDW 16.8 H (11.5-15.5) % Neutrophils # 10.5 H (1.3-7.7) k/uL Chloride 119 H (98-107) mmol/L Carbon Dioxide 17 L (22-30) mmol/L BUN 33 H (7-17) mg/dL Creatinine 1.28 H (0.52-1.04) mg/dL Calcium 5.8 L* (8.4-10.2) mg/dL Alkaline Phosphatase 140 H (38-126) U/L Total Protein 4.7 L (6.3-8.2) g/dL Albumin 1.9 L (3.5-5.0) g/dL
--- NOTE | 2023-10-30 15:08 | P.GSCN ---
History of Present Illness History of present illness: 83-year-old white female known to me from the past. Patient has been taken care of homecare nurse at home patient came to the emergency room with history of chronic wound left lower extremity patient has a large wound on the anterior aspect of the left lower extremity with multiple ulcers base of the ulcer granulating and there is some pressure ulcer on the left heel stage II with some devitalized tissue Medical history history of diabetes hyperlipidemia the stage I kidney disease Neck is supple no bruit appreciated Chest is clear few crackles the lung bases first and second sound present vascular femorals are 1+ bilateral patient has a chronic wound left lower extremity and left heel area Plan is we will use Aquacel silver. Stay for possible debridement of the heel wound at this point prognosis is guarded follow with you 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, 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 Source:: Left Heel Past Surgical History: Appendectomy, Section, Cholecystectomy, Heart Catheterization, Hysterectomy Additional Past Surgical History / Comment(s): pericardial window, surgery mir eyes for glaucoma, cyst removal on abdomen Past Anesthesia/Blood Transfusion Reactions: Blood Transfusion Reaction Additional Past Anesthesia/Blood Transfusion Reaction / Comm: reaction to blood transfusion 25-30 yrs ago-"I got red and they pulled it out" Past Psychological History: No Psychological Hx Reported Smoking Status: Former smoker Past Alcohol Use History: None Reported Past Drug Use History: None Reported - Past Family History Father Family Medical History: Cancer Brother(s) Family Medical History: Cancer Medications and Allergies Home Medications Medication Instructions Recorded Confirmed Type Torsemide [Demadex] 20 mg PO DAILY 01/31/19 10/30/23 History Atorvastatin [Lipitor] 20 mg PO HS 08/27/21 10/30/23 History Empagliflozin [Jardiance] 10 mg PO DAILY 03/20/23 10/30/23 History Metoprolol Succinate (ER) [Toprol 25 mg PO DAILY 03/20/23 10/30/23 History XL] Spironolactone [Aldactone] 25 mg PO DAILY 03/20/23 10/30/23 History Apixaban [Eliquis] 5 mg PO BID 04/17/23 10/30/23 History Buprenorphine [Butrans 5 MCG/HR] 1 patch TRANSDERM SA 10/30/23 10/30/23 History Doxycycline Hyclate 100 mg PO BID 10/30/23 10/30/23 History Famotidine [Pepcid] 20 mg PO DAILY 10/30/23 10/30/23 History Gabapentin [Neurontin] 100 mg PO TID 10/30/23 10/30/23 History Glimepiride [Amaryl] 1 mg PO DAILY 10/30/23 10/30/23 History HYDROcodone/APAP 10-325MG [[place] 1 tab PO Q3H PRN 10/30/23 10/30/23 History 10-325] amLODIPine [Norvasc] 5 mg PO DAILY 10/30/23 10/30/23 History hydrALAZINE HCL [Apresoline] 25 mg PO TID 10/30/23 10/30/23 History Allergies Allergy/AdvReac Type Severity Reaction Status Date / Time cefepime Allergy Anaphylaxis Verified 10/30/23 10:16 latex Allergy Rash/red Verified 10/30/23 10:16 skin Penicillins Allergy Rash/Hives Verified 10/30/23 10:16 Surgical - Exam Vital Signs Temp Pulse Resp BP Pulse Ox 97.3 F L 64 18 132/53 100 10/29/23 23:27 10/29/23 23:27 10/29/23 23:27 10/29/23 23:27 10/29/23 23:27 Results - Labs 10/30/23 02:07 10/30/23 07:00 Abnormal Lab Results - Last 24 Hours (Table) 10/30/23 10/30/23 10/30/23 Range/Units 02:07 07:00 12:06 WBC 13.3 H (3.8-10.6) k/uL Hgb 10.6 L (11.4-16.0) gm/dL MCH 24.6 L (25.0-35.0) pg MCHC 28.9 L (31.0-37.0) g/dL RDW 16.8 H (11.5-15.5) % Neutrophils # 10.5 H (1.3-7.7) k/uL Chloride 119 H (98-107) mmol/L Carbon Dioxide 17 L (22-30) mmol/L BUN 33 H (7-17) mg/dL Creatinine 1.28 H (0.52-1.04) mg/dL POC Glucose (mg/dL) 206 H (70-110) mg/dL Calcium 5.8 L* (8.4-10.2) mg/dL Alkaline Phosphatase 140 H (38-126) U/L Total Protein 4.7 L (6.3-8.2) g/dL Albumin 1.9 L (3.5-5.0) g/dL Diabetes panel 10/30/23 Range/Units 07:00 Sodium 142 (137-145) mmol/L Potassium 3.9 (3.5-5.1) mmol/L Chloride 119 H (98-107) mmol/L Carbon Dioxide 17 L (22-30) mmol/L BUN 33 H (7-17) mg/dL Creatinine 1.28 H (0.52-1.04) mg/dL Glucose 82 (74-99) mg/dL Calcium 5.8 L* (8.4-10.2) mg/dL AST 15 (14-36) U/L ALT 9 (4-34) U/L Alkaline Phosphatase 140 H (38-126) U/L Total Protein 4.7 L (6.3-8.2) g/dL Albumin 1.9 L (3.5-5.0) g/dL Calcium panel 10/30/23 Range/Units 07:00 Calcium 5.8 L* (8.4-10.2) mg/dL Albumin 1.9 L (3.5-5.0) g/dL Pituitary panel 10/30/23 Range/Units 07:00 Sodium 142 (137-145) mmol/L Potassium 3.9 (3.5-5.1) mmol/L Chloride 119 H (98-107) mmol/L Carbon Dioxide 17 L (22-30) mmol/L BUN 33 H (7-17) mg/dL Creatinine 1.28 H (0.52-1.04) mg/dL Glucose 82 (74-99) mg/dL Calcium 5.8 L* (8.4-10.2) mg/dL Adrenal panel 10/30/23 Range/Units 07:00 Sodium 142 (137-145) mmol/L Potassium 3.9 (3.5-5.1) mmol/L Chloride 119 H (98-107) mmol/L Carbon Dioxide 17 L (22-30) mmol/L BUN 33 H (7-17) mg/dL Creatinine 1.28 H (0.52-1.04) mg/dL Glucose 82 (74-99) mg/dL Calcium 5.8 L* (8.4-10.2) mg/dL Total Bilirubin 0.5 (0.2-1.3) mg/dL AST 15 (14-36) U/L ALT 9 (4-34) U/L Alkaline Phosphatase 140 H (38-126) U/L Total Protein 4.7 L (6.3-8.2) g/dL Albumin 1.9 L (3.5-5.0) g/dL
[2023-10-30 16:46] LABS: Glucose,Whole Blood 120 mg/dL (70-110)
[2023-10-30] MEDS: GABAPENTIN 100 MG CAP PO SCH (16:54)
[2023-10-30] MEDS: hydrALAZINE HCL 25 MG TAB PO SCH (16:54)
[2023-10-30 20:03] LABS: Glucose,Whole Blood 179 mg/dL (70-110)
--- NOTE | 2023-10-30 23:16 | P.CONS ---
History of Present Illness - Reason for Consult Consult date: 10/30/23 Wound left lower extremity Requesting physician: Edgar Rodriguez - Chief Complaint Worsening wound to the left leg with pain x days - History of Present Illness Patient is a 83-year-old female with a past medical history significant for diabetes mellitus hypertension hyperlipidemia renal disorder the patient also have a history of chronic left lower extremity venous stasis ulcer and multiple episodes of cellulitis patient has been sent to the ER for evaluation of worsening swelling redness and drainage from the left lower extremity wound concerning for wound infection and cellulitis patient on presentation to the hospital was afebrile and no fever have recorded subsequently patient was not tachycardic hypotensive or hypoxic patient did have a white count of 13.3 with a left shift creatinine is 1.28 liver enzymes are normal lower extremity culture obtained patient was initially started on vancomycin that has been switched to daptomycin infectious disease was consulted for further management of antibiotic therapy patient be complaining of worsening swelling to the lower extremity with worsening wound over the last few days to weeks noticed to having increasing redness and pain patient describes the pain to be sharp, with intensity almost 10 out of 10 without any radiation with associated swelling redness and some foul-smelling drainage Review of Systems Positive point and negatives has been mentioned in the HPI, complete review of systems was performed and all other systems are negative 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, 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 Source:: Left Heel Past Surgical History: Appendectomy, Section, Cholecystectomy, Heart Catheterization, Hysterectomy Additional Past Surgical History / Comment(s): pericardial window, surgery mir eyes for glaucoma, cyst removal on abdomen Past Anesthesia/Blood Transfusion Reactions: Blood Transfusion Reaction Additional Past Anesthesia/Blood Transfusion Reaction / Comm: reaction to blood transfusion 25-30 yrs ago-"I got red and they pulled it out" Past Psychological History: No Psychological Hx Reported Smoking Status: Former smoker Past Alcohol Use History: None Reported Past Drug Use History: None Reported - Past Family History Father Family Medical History: Cancer Brother(s) Family Medical History: Cancer Medications and Allergies Home Medications Medication Instructions Recorded Confirmed Type Atorvastatin [Lipitor] 20 mg PO HS 08/27/21 10/30/23 History Empagliflozin [Jardiance] 10 mg PO DAILY 03/20/23 10/30/23 History Metoprolol Succinate (ER) [Toprol 25 mg PO DAILY 03/20/23 10/30/23 History XL] Apixaban [Eliquis] 5 mg PO BID 04/17/23 10/30/23 History Famotidine [Pepcid] 20 mg PO DAILY 10/30/23 10/30/23 History Glimepiride [Amaryl] 1 mg PO DAILY 10/30/23 10/30/23 History amLODIPine [Norvasc] 5 mg PO DAILY 10/30/23 10/30/23 History Buprenorphine [Butrans 5 MCG/HR] 1 patch TRANSDERM SA #1 patch 11/08/23 Rx DAPTOmycin [Cubicin] 1 mg IV DAILY #28 each 11/08/23 Rx Gabapentin [Neurontin] 100 mg PO TID #9 cap 11/08/23 Rx HYDROcodone/APAP 10-325MG [[place] 1 tab PO Q4HR PRN #18 tab 11/08/23 Rx 10-325] Loperamide [Imodium] 2 mg PO QID PRN cap 11/08/23 Rx Meropenem [Merrem] 1 gm IVPB Q8H #84 each 11/08/23 Rx Allergies Allergy/AdvReac Type Severity Reaction Status Date / Time cefepime Allergy Anaphylaxis Verified 10/30/23 10:16 latex Allergy Rash/red Verified 10/30/23 10:16 skin Penicillins Allergy Rash/Hives Verified 10/30/23 10:16 Physical Exam Vitals: Vital Signs Temp Pulse Resp BP Pulse Ox 10/30/23 13:24 85 18 117/73 97 10/30/23 12:31 85 18 119/48 97 10/30/23 09:18 70 20 139/68 98 10/30/23 07:49 70 18 118/61 93 L 10/30/23 06:21 70 16 130/58 98 10/30/23 04:12 72 16 142/69 98 10/29/23 23:27 97.3 F L 64 18 132/53 100 Intake and Output 10/30/23 10/30/23 10/30/23 06:59 14:59 22:59 Other: Weight 99.79 kg GENERAL DESCRIPTION: Elderly female lying in bed, no distress. No tachypnea or accessory muscle of respiration use. HEENT: Shows Pallor , no scleral icterus. Oral mucous membrane is dry. NECK: Trachea central, no thyromegaly. LUNGS: Unlabored breathing. Clear to auscultation anteriorly. No wheeze or crackle. HEART: S1, S2, regular rate and rhythm. No loud murmur ABDOMEN: Soft, no tenderness , guarding or rigidity, no organomegaly EXTREMITIES: Left lower extremity and heel wound is currently dressed apparently had just been debrided by the surgeon no drainage SKIN: No rash, no masses palpable. NEUROLOGICAL: The patient is awake, alert, oriented x3, mood and affect normal. Results CBC & Chem 7: 11/06/23 06:04 11/08/23 05:45 Labs: Abnormal Lab Results - Last 24 Hours (Table) 10/30/23 10/30/23 10/30/23 Range/Units 02:07 07:00 12:06 WBC 13.3 H (3.8-10.6) k/uL Hgb 10.6 L (11.4-16.0) gm/dL MCH 24.6 L (25.0-35.0) pg MCHC 28.9 L (31.0-37.0) g/dL RDW 16.8 H (11.5-15.5) % Neutrophils # 10.5 H (1.3-7.7) k/uL Chloride 119 H (98-107) mmol/L Carbon Dioxide 17 L (22-30) mmol/L BUN 33 H (7-17) mg/dL Creatinine 1.28 H (0.52-1.04) mg/dL POC Glucose (mg/dL) 206 H (70-110) mg/dL Calcium 5.8 L* (8.4-10.2) mg/dL Alkaline Phosphatase 140 H (38-126) U/L Total Protein 4.7 L (6.3-8.2) g/dL Albumin 1.9 L (3.5-5.0) g/dL Microbiology - Last 24 Hours (Table) 10/30/23 02:07 Gram Stain - Preliminary Leg - Left Assessment and Plan (1) Allergy to multiple antibiotics Status: Acute Code(s): Z88.1 - ALLERGY STATUS TO OTHER ANTIBIOTIC AGENTS SNOMED Code(s): 469220077 (2) Stage III pressure ulcer of left heel Status: Acute Code(s): L89.623 - PRESSURE ULCER OF LEFT HEEL, STAGE 3 SNOMED Code(s): 05759873971675 (3) Type 2 diabetes mellitus with foot ulcer Status: Acute Code(s): E11.621 - TYPE 2 DIABETES MELLITUS WITH FOOT ULCER; L97.509 - NON-PRESSURE CHRONIC ULCER OTH PRT UNSP FOOT W UNSP SEVERITY SNOMED Code(s): 967101078 Plan: 1-Patient with a chronic wound to the left lower extremity now presented to hospital with worsening pain swelling redness and drainage concerning for infection in this patient who has grown multiple different pathogen in the past last culture has been VRE Streptococcus agalactiae and MRSA 2-patient with multiple antibiotic ALLERGIES that would limit the number of antibiotic safe to use 3-local culture has been obtained results will be followed 4-patient to continue the daptomycin while waiting for the culture to finalize Local wound care per the wound care team We will follow on clinical condition and cultures to further adjust medication if needed Thank you for this consultation we will follow the patient along with you Dictation was produced using [employer] dictation software. please excuse any grammatical, word or spelling errors. Time with Patient: Greater than 30
[2023-10-31 05:50] LABS: Glucose,Whole Blood 76 mg/dL (70-110)
[2023-10-31] MEDS: DAPTOmycin 500 MG in SODIUM CHLORIDE 0.9% 50 ML IVPB SCH (05:55)
[2023-10-31 12:16] LABS: Glucose,Whole Blood 126 mg/dL (70-110)
--- NOTE | 2023-10-31 15:48 | P.PN ---
Subjective Progress Note Date: 10/31/23 Principal diagnosis: Reason for follow-up is left lower extremity wound and cellulitis Patient is a 83-year-old female with a past medical history significant for diabetes mellitus hypertension hyperlipidemia renal disorder the patient also have a history of chronic left lower extremity venous stasis ulcer and multiple episodes of cellulitis, presented to hospital with worsening wound to the left lower extremity concerning for infected wound and cellulitis. On today's visit that is 10/31/2023,the patient remains to be afebrile, patient is on room air not requiring supplemental oxygen and denies any shortness of breath no chest pain or cough.Patient denies having any nausea or vomiting, no abdominal pain and no diarrhea has been reported, still complaining of pain to the left lower extremity mention no significant improvement. No new labs has been obtained today cultures are growing gram-negative Objective - Vital Signs Vital signs: Vital Signs Temp 98.3 F 10/31/23 07:00 Pulse 70 10/31/23 07:00 Resp 16 10/31/23 07:00 BP 120/58 10/31/23 07:00 Pulse Ox 97 10/31/23 07:00 FiO2 Intake & Output 10/30/23 10/31/23 10/31/23 18:59 06:59 18:59 Output Total 600 Balance -600 Weight 99.79 kg Output: Urine 600 Other: Voiding Method Indwelling Catheter Indwelling Catheter - Exam GENERAL DESCRIPTION: An elderly female lying in bed in no distress RESPIRATORY SYSTEM: Unlabored breathing , decreased breath sounds at bases HEART: S1 S2 regular rate and rhythm , ABDOMEN: Soft , no tenderness EXTREMITIES: Left foot leg wound is currently dressed no drainage on the dressing - Labs CBC & Chem 7: 10/30/23 02:07 10/30/23 07:00 Labs: Abnormal Lab Results - Last 24 Hours (Table) 10/30/23 10/30/23 10/31/23 Range/Units 16:45 20:02 12:15 POC Glucose (mg/dL) 120 H 179 H 126 H (70-110) mg/dL Microbiology - Last 24 Hours (Table) 10/30/23 02:07 Blood Culture - Preliminary Blood 10/30/23 02:07 Blood Culture - Preliminary Blood 10/30/23 02:07 Gram Stain - Preliminary Leg - Left Wound Culture - Preliminary Gram Neg Bacilli Gram Neg Bacilli#2 10/30/23 16:12 Gram Stain - Preliminary Heel - Left Assessment and Plan (1) Type 2 diabetes mellitus with other skin ulcer Current Visit: Yes Status: Acute Code(s): E11.622 - TYPE 2 DIABETES MELLITUS WITH OTHER SKIN ULCER; L98.499 - NON-PRESSURE CHRONIC ULCER OF SKIN OF SITES W UNSP SEVERITY SNOMED Code(s): 076674981 (2) Wound of left leg Current Visit: Yes Status: Acute Code(s): S81.802A - UNSPECIFIED OPEN WOUND, LEFT LOWER LEG, INITIAL ENCOUNTER SNOMED Code(s): 94654027973230063 (3) Allergy to multiple antibiotics Current Visit: No Status: Acute Code(s): Z88.1 - ALLERGY STATUS TO OTHER ANTIBIOTIC AGENTS SNOMED Code(s): 138357209 (4) Left leg cellulitis Current Visit: No Status: Acute Code(s): L03.116 - CELLULITIS OF LEFT LOWER LIMB SNOMED Code(s): 09960160170472764 Plan: 1-Patient with a chronic wound to the left lower extremity now presented to hosp [facility] with worsening pain swelling redness and drainage concerning for infection in this patient who has grown multiple different pathogen in the past last culture has been VRE Streptococcus agalactiae and MRSA 2-patient with multiple antibiotic ALLERGIES that would limit the number of antibiotic safe to use 3-local culture has been obtained which are currently growing gram-negative 4-patient to continue the daptomycin however will add meropenem while waiting for the ID sensitivity on the gram-negative to finalize,Local wound care per the wound care team Dictation was produced using [employer] dictation software. please excuse any grammatical, word or spelling errors. Time with Patient: Less than 30
[2023-10-31] MEDS: MEROPENEM 1 GM in SODIUM CHLORIDE 0.9% 100 ML IVPB SCH (16:40)
[2023-10-31 16:57] LABS: Glucose,Whole Blood 191 mg/dL (70-110)
--- NOTE | 2023-10-31 17:09 | P.PN ---
Subjective Progress Note Date: 10/31/23 Hospital course: Patient is a very pleasant 76-year-old female with a past medical history of CAD, chronic diastolic heart failure, hypertension, hyperlipidemia, type II upi-upeggrn-krarmbjrl diabetes mellitus, chronic kidney disease stage IIIb, history of DVTs on Eliquis and peripheral vascular deficiency with chronic venous stasis and diabetic ulcers status postsurgical debridement with history of MRSA and VRE. She presented to the emergency department with complaints of worsening left lower extremity ulcerations despite outpatient care and weekly visits from wound care nurse. She underwent evaluation in the emergency department. Vital signs upon arrival show blood pressure 132/53, heart rate 64, respiratory rate 18, temp 97.3 F, and SpO2 100% on room air. Labs were c ompleted and reviewed. CBC showing leukocytosis with WBC count of 13.3 and microchromic anemia with hemoglobin of 10.6 and MCH of 24.6. BMP revealing mild metabolic acidosis with chloride of 119, bicarb 17, anion gap 6, and renal function consistent with stage IIIb chronic kidney disease with BUN of 33, creatinine 1.28, and GFR of 38. Blood glucose was 82. Lactate was 1.1. Calcium was 5.8 with albumin of 1.9 showing corrected calcium of 7.9. Liver profile showing elevated alkaline phosphatase of 140. X-ray left tib-fib showing osseous structures remained demineralized with no new suspicious bony destruction to suggest acute osteomyelitis per radiology report when compared to previous imaging completed 08/30/2021. Patient was started on IV antibiotics and admitted under our services with consultation to infectious disease. Blood cultures and wound culture was sent to lab for analysis. Physical exam: Vital signs reviewed and stable. General: Nontoxic, no distress and appears stated age. Derm: Skin warm and dry, normal coloration for ethnicity. Head: Atraumatic, normocephalic and symmetric. Eyes: EOMs intact, no lid lag, and anicteric sclera Mouth: no lip lesions, mucus membranes moist Cardiovascular: regular rate and rhythm with normal S1S2, systolic murmur Lungs: Respirations even, regular, and unlabored on room air. Lungs CTA bilaterally, no rhonchi, no rales, no wheezing, and no accessory muscle usage. Abdominal: soft, nontender to palpation, no guarding, no appreciable organomegaly. Chronic Craven catheter. Ext: Bilateral lower extremities with moderate swelling and scaling of skin appearing chronic, however left lower extremity with stage II pressure ulcer to heal with multiple stage II ulcers to the left calf with surrounding erythema and drainage. Neuro: Speech clear, face symmetrical and CN II-XII grossly intact with no noted focal neuro deficits Psych: Alert and oriented to person, place, time, and situation. Appropriate and pleasant affect. Assessment and Plan of Care: Left lower extremity ulcers, multiple with concerns of infection and recent history of MRSA and VRE Continue IV antibiotics with daptomycin 500 mg every 24 hours pending further culture results and recommendations by infectious disease. Infectious disease consulted -Preliminary wound culture positive for gram-negative bacilli. Blood culture showing no growth to date. Vascular surgery consulted, Dr. Choe as patient follows outpatient and he performed previous debridement Symptomatic care and pain management. Type II psc-qmcfkhy-kjknvsppd diabetes mellitus Continue Farxiga and patient placed on glycemic protocol with NovoLog sliding scale. Hypocalcemia Critical calcium 5.8 with a corrected calcium of 7.9 secondary to albumin of 1.9. Order placed for calcium gluconate 1 g IVPB. History of CAD Chronic diastolic heart failure Hypertension Hyperlipidemia Patient to continue daily medication regimen with Norvasc 5 mg daily, Farxiga 5 mg daily, hydralazine 25 mg 3 times daily, metoprolol 25 mg daily, Aldactone 25 mg daily, and torsemide 20 mg daily. History of DVTs Continue Eliquis 5 mg twice daily. Data and imaging reviewed: -Vital signs reviewed. Blood pressure 120/58, heart rate 70, respiratory rate 16, temp 98.3 F, and SpO2 of 97% on room air. -Preliminary wound culture positive for gram-negative bacilli. Blood culture showing no growth to date. CODE STATUS: Full code DVT prophylaxis: Eliquis Anticipated discharge date: Clinical course to determine Anticipated discharge place: Clinical course to determine Patient was seen independently by Nurse Pracitioner. This document was prepared using [employer] dictation software. Please allow for errors in tire sorter, while rare they do occur. Wild Ji NP rendered care for this patient independently, reviewed the findings and plan as documented in the note above. I did not physically speak with or examine the patient on this date. Objective - Vital Signs Vital signs: Vital Signs Temp 98.4 F 10/31/23 02:33 Pulse 73 10/31/23 02:33 Resp 15 10/31/23 02:33 BP 107/59 10/31/23 02:33 Pulse Ox 94 L 10/31/23 02:33 FiO2 Intake & Output 10/30/23 10/31/23 10/31/23 18:59 06:59 18:59 Output Total 600 Balance -600 Weight 99.79 kg Output: Urine 600 Other: Voiding Method Indwelling Catheter - Labs CBC & Chem 7: 10/30/23 02:07 10/30/23 07:00 Labs: Abnormal Lab Results - Last 24 Hours (Table) 10/30/23 10/30/23 10/30/23 Range/Units 12:06 16:45 20:02 POC Glucose (mg/dL) 206 H 120 H 179 H (70-110) mg/dL Microbiology - Last 24 Hours (Table) 10/30/23 16:12 Gram Stain - Preliminary Heel - Left 10/30/23 02:07 Gram Stain - Preliminary Leg - Left
[2023-10-31 20:31] LABS: Glucose,Whole Blood 165 mg/dL (70-110)
[2023-11-01 06:03] LABS: Glucose,Whole Blood 97 mg/dL (70-110)
[2023-11-01 11:13] LABS: HCT 33.1 % (37.2-46.3); HGB 9.5 g/dL (12.0-15.0); MCH 24.2 pg (27.0-32.0); MCHC 28.7 g/dL (32.0-37.0); MCV 84.2 FL (80.0-97.0); Mean Platelet Volume 8.8 FL (9.5-12.2); NRBC Per 100 WBC 0 X 10*3/uL (0.00-0.01); Platelet Count 291 X 10*3/uL (140-440); RBC 3.93 X 10*6/uL (4.10-5.20); RDW 17.9 % (11.5-14.5); WBC 9.51 X 10*3/uL (4.50-10.00)
[2023-11-01 11:32] LABS: ALT 7 U/L (8-44); AST 14 U/L (13-35); Albumin 2.7 g/dL (3.8-4.9); Albumin/Globulin Ratio 0.96 Ratio (1.60-3.17); Alkaline Phosphatase 160 U/L (41-126); BUN/Creat Ratio 18.89 Ratio (12.00-20.00); Blood Urea Nitrogen 35.9 mg/dL (9.0-27.0); Calcium 7.7 mg/dL (8.7-10.3); Carbon Dioxide 23.9 mmol/L (21.6-31.8); Chloride 110 mmol/L (96-109); Globulin 2.8 g/dL (1.6-3.3); Glucose 88 mg/dL (70-110); Magnesium 2.5 mg/dL (1.5-2.4); Potassium 4.4 mmol/L (3.5-5.5); Sodium 145 mmol/L (135-145); Total Bilirubin <0.2 mg/dL (0.3-1.2); Total Protein 5.5 g/dL (6.2-8.2)
[2023-11-01 11:47] LABS: Glucose,Whole Blood 178 mg/dL (70-110)
--- NOTE | 2023-11-01 14:16 | P.PN ---
Subjective Progress Note Date: 11/01/23 Hospital course: Patient is a very pleasant 76-year-old female with a past medical history of CAD, chronic diastolic heart failure, hypertension, hyperlipidemia, type II ykd-jdgedja-rjjoptrys diabetes mellitus, chronic kidney disease stage IIIb, history of DVTs on Eliquis and peripheral vascular deficiency with chronic venous stasis and diabetic ulcers status postsurgical debridement with history of MRSA and VRE. She presented to the emergency department with complaints of worsening left lower extremity ulcerations despite outpatient care and weekly visits from wound care nurse. She underwent evaluation in the emergency department. Vital signs upon arrival show blood pressure 132/53, heart rate 64, respiratory rate 18, temp 97.3 F, and SpO2 100% on room air. Labs were c ompleted and reviewed. CBC showing leukocytosis with WBC count of 13.3 and microchromic anemia with hemoglobin of 10.6 and MCH of 24.6. BMP revealing mild metabolic acidosis with chloride of 119, bicarb 17, anion gap 6, and renal function consistent with stage IIIb chronic kidney disease with BUN of 33, creatinine 1.28, and GFR of 38. Blood glucose was 82. Lactate was 1.1. Calcium was 5.8 with albumin of 1.9 showing corrected calcium of 7.9. Liver profile showing elevated alkaline phosphatase of 140. X-ray left tib-fib showing osseous structures remained demineralized with no new suspicious bony destruction to suggest acute osteomyelitis per radiology report when compared to previous imaging completed 08/30/2021. Patient was started on IV antibiotics and admitted under our services with consultation to infectious disease. Blood cultures and wound culture was sent to lab for analysis. Physical exam: Patient seen and fully evaluated at bedside this morning. Patient updated that we are awaiting final culture and sensitivity report as preliminary blood cultures showing positive for gram-negative bacilli. Discussed with patient the potential need for SNF placement on discharge. Patient currently agreeable. Discussed with case managers/foster care social worker. Vital signs reviewed and stable. General: Nontoxic, no distress and appears stated age. Derm: Skin warm and dry, normal coloration for ethnicity. Head: Atraumatic, normocephalic and symmetric. Eyes: EOMs intact, no lid lag, and anicteric sclera Mouth: no lip lesions, mucus membranes moist Cardiovascular: regular rate and rhythm with normal S1S2, systolic murmur Lungs: Respirations even, regular, and unlabored on room air. Lungs CTA bilaterally, no rhonchi, no rales, no wheezing, and no accessory muscle usage. Abdominal: soft, nontender to palpation, no guarding, no appreciable organomegaly. Chronic Craven catheter. Ext: Bilateral lower extremities with moderate swelling and scaling of skin appearing chronic, however left lower extremity with stage II pressure ulcer to heal with multiple stage II ulcers to the left calf with surrounding erythema and drainage. Neuro: Speech clear, face symmetrical and CN II-XII grossly intact with no noted focal neuro deficits Psych: Alert and oriented to person, place, time, and situation. Appropriate and pleasant affect. Assessment and Plan of Care: Left lower extremity ulcers, multiple with concerns of infection and recent history of MRSA and VRE Continue IV antibiotics with daptomycin 500 mg every 24 hours pending further culture results and recommendations by infectious disease. Infectious disease consulted, reviewed documentation in chart -Preliminary wound culture positive for gram-negative bacilli. Blood culture showing no growth to date. Vascular surgery consulted, Dr. Choe stated patient to stay for possible debridement of heel wound. Symptomatic care and pain management. Acute kidney injury -Hold nephrotoxic medications including torsemide and Aldactone and started patient on gentle IV fluid hydration with 0.9% normal saline at 75 cc/h. -Continue to monitor closely with repeat morning BMP. Type II tkk-vrnpybg-drvftawbp diabetes mellitus Continue Farxiga and patient placed on glycemic protocol with NovoLog sliding scale. Hypocalcemia Critical calcium 5.8 with a corrected calcium of 7.9 secondary to albumin of 1.9. Order placed for calcium gluconate 1 g IVPB. History of CAD Chronic diastolic heart failure Hypertension Hyperlipidemia Patient to continue daily medication regimen with Norvasc 5 mg daily, Farxiga 5 mg daily, hydralazine 25 mg 3 times daily, and metoprolol 25 mg daily. History of DVTs Continue Eliquis 5 mg twice daily. Data and imaging reviewed: - Vital signs reviewed. Blood pressure 121/60, heart rate 64, respiratory rate 16, temp 98.1 F, and SpO2 of 97% on room air. - Preliminary wound culture positive for gram-negative bacilli. Blood culture showing no growth to date. Labs completed and reviewed. CBC showing stable anemia with hemoglobin of 9.5. BMP showing hyperchloremia with chloride of 110 and renal function. CODE STATUS: Full code DVT prophylaxis: Eliquis Anticipated discharge date: Clinical course to determine Anticipated discharge place: Clinical course to determine Patient was seen independently by Nurse Pracitioner. This document was prepared using [employer] dictation software. Please allow for errors in women's studies lecturer, while rare they do occur. Objective - Vital Signs Vital signs: Vital Signs Temp 98.1 F 11/01/23 07:00 Pulse 64 11/01/23 07:00 Resp 16 11/01/23 07:00 BP 121/60 11/01/23 07:00 Pulse Ox 97 11/01/23 07:00 FiO2 Intake & Output 10/31/23 11/01/23 11/01/23 18:59 06:59 18:59 Output Total 700 1700 Balance -700 -1700 Output: Urine 700 1700 Other: Voiding Method Indwelling Catheter Indwelling Catheter - Labs CBC & Chem 7: 11/01/23 06:24 11/01/23 06:24 Labs: Abnormal Lab Results - Last 24 Hours (Table) 10/31/23 10/31/23 10/31/23 Range/Units 12:15 16:56 20:30 POC Glucose (mg/dL) 126 H 191 H 165 H (70-110) mg/dL Microbiology - Last 24 Hours (Table) 10/30/23 16:12 Gram Stain - Preliminary Heel - Left Tissue Culture - Preliminary Gram Neg Bacilli 10/30/23 02:07 Blood Culture - Preliminary Blood 10/30/23 02:07 Blood Culture - Preliminary Blood 10/30/23 02:07 Gram Stain - Preliminary Leg - Left Wound Culture - Preliminary Gram Neg Bacilli Gram Neg Bacilli#2
[2023-11-01] MEDS: SODIUM CHLORIDE 0.9% 1,000 ML IV SCH (17:19)
[2023-11-01 17:30] LABS: Glucose,Whole Blood 157 mg/dL (70-110)
[2023-11-01 19:53] LABS: Glucose,Whole Blood 151 mg/dL (70-110)
[2023-11-01] MEDS: ACETAMINOPHEN TAB 325 MG TAB PO PRN (20:33)
--- NOTE | 2023-11-01 23:13 | P.PN ---
Subjective Progress Note Date: 11/01/23 Principal diagnosis: Reason for follow-up is left lower extremity wound and cellulitis Patient is a 83-year-old female with a past medical history significant for diabetes mellitus hypertension hyperlipidemia renal disorder the patient also have a history of chronic left lower extremity venous stasis ulcer and multiple episodes of cellulitis, presented to hospital with worsening wound to the left lower extremity concerning for infected wound and cellulitis. On today's visit that is 11/01/2023, the patient continues to be afebrile, the patient is on room air and breathing comfortably, the Pt denies having any chest pain or cough, the patient denies having any abdominal pain no vomiting or any diarrhea patient is recommending significant pain to the left lower extremity wound area. The patient white count normalized to 9.5, creatinine is 1.9, local cultures are growing Pseudomonas aeruginosa Proteus and MRSA Objective - Vital Signs Vital signs: Vital Signs Temp 98.1 F 11/01/23 07:00 Pulse 64 11/01/23 08:00 Resp 16 11/01/23 08:00 BP 121/60 11/01/23 07:00 Pulse Ox 97 11/01/23 07:00 FiO2 Intake & Output 10/31/23 11/01/23 11/01/23 18:59 06:59 18:59 Output Total 700 1700 Balance -700 -1700 Output: Urine 700 1700 Other: Voiding Method Indwelling Catheter Indwelling Catheter Indwelling Catheter - Exam GENERAL DESCRIPTION: An elderly female lying in bed in no distress RESPIRATORY SYSTEM: Unlabored breathing , decreased breath sounds at bases HEART: S1 S2 regular rate and rhythm , ABDOMEN: Soft , no tenderness EXTREMITIES: Left foot leg wound especially to the heel area did have necrotic tissue and some foul-smelling drainage - Labs CBC & Chem 7: 11/01/23 06:24 11/01/23 06:24 Labs: Abnormal Lab Results - Last 24 Hours (Table) 10/31/23 10/31/23 11/01/23 Range/Units 16:56 20:30 06:24 RBC 3.93 L (4.10-5.20) X 10*6/uL Hgb 9.5 L (12.0-15.0) g/dL Hct 33.1 L (37.2-46.3) % MCH 24.2 L (27.0-32.0) pg MCHC 28.7 L (32.0-37.0) g/dL RDW 17.9 H (11.5-14.5) % MPV 8.8 L (9.5-12.2) FL Chloride (96-109) mmol/L BUN (9.0-27.0) mg/dL Creatinine (0.6-1.5) mg/dL Est GFR (CKD-EPI) (>=60) POC Glucose (mg/dL) 191 H 165 H (70-110) mg/dL Calcium (8.7-10.3) mg/dL Magnesium (1.5-2.4) mg/dL Total Bilirubin (0.3-1.2) mg/dL ALT (8-44) U/L Alkaline Phosphatase (41-126) U/L Total Protein (6.2-8.2) g/dL Albumin (3.8-4.9) g/dL Albumin/Globulin Ratio (1.60-3.17) Ratio 11/01/23 11/01/23 Range/Units 06:24 11:45 RBC (4.10-5.20) X 10*6/uL Hgb (12.0-15.0) g/dL Hct (37.2-46.3) % MCH (27.0-32.0) pg MCHC (32.0-37.0) g/dL RDW (11.5-14.5) % MPV (9.5-12.2) FL Chloride 110 H (96-109) mmol/L BUN 35.9 H (9.0-27.0) mg/dL Creatinine 1.9 H (0.6-1.5) mg/dL Est GFR (CKD-EPI) 26 L (>=60) POC Glucose (mg/dL) 178 H (70-110) mg/dL Calcium 7.7 L (8.7-10.3) mg/dL Magnesium 2.5 H (1.5-2.4) mg/dL Total Bilirubin <0.2 L (0.3-1.2) mg/dL ALT 7 L (8-44) U/L Alkaline Phosphatase 160 H (41-126) U/L Total Protein 5.5 L (6.2-8.2) g/dL Albumin 2.7 L (3.8-4.9) g/dL Albumin/Globulin Ratio 0.96 L (1.60-3.17) Ratio Microbiology - Last 24 Hours (Table) 10/30/23 02:07 Blood Culture - Preliminary Blood 10/30/23 02:07 Blood Culture - Preliminary Blood 10/30/23 02:07 Gram Stain - Preliminary Leg - Left Wound Culture - Preliminary Proteus mirabilis Pseudomonas aeruginosa Presumptive MRSA 10/30/23 16:12 Gram Stain - Preliminary Heel - Left Tissue Culture - Preliminary Gram Neg Bacilli Assessment and Plan (1) Type 2 diabetes mellitus with other skin ulcer Current Visit: Yes Status: Acute Code(s): E11.622 - TYPE 2 DIABETES MELLITUS WITH OTHER SKIN ULCER; L98.499 - NON-PRESSURE CHRONIC ULCER OF SKIN OF SITES W UNSP SEVERITY SNOMED Code(s): 335992410 (2) Wound of left leg Current Visit: Yes Status: Acute Code(s): S81.802A - UNSPECIFIED OPEN WOUND, LEFT LOWER LEG, INITIAL ENCOUNTER SNOMED Code(s): 01923629300396490 (3) Allergy to multiple antibiotics Current Visit: No Status: Acute Code(s): Z88.1 - ALLERGY STATUS TO OTHER ANTIBIOTIC AGENTS SNOMED Code(s): 377339548 (4) Left leg cellulitis Current Visit: No Status: Acute Code(s): L03.116 - CELLULITIS OF LEFT LOWER LIMB SNOMED Code(s): 46414530375095545 Plan: 1-Patient with a chronic wound to the left lower extremity now presented to hospital with worsening pain swelling redness and drainage concerning for in fection in this patient who has grown multiple different pathogen in the past last culture has been VRE Streptococcus agalactiae and MRSA 2-patient with multiple antibiotic ALLERGIES that would limit the number of antibiotic safe to use 3-local culture has been obtained which are currently growing Proteus Pseudomonas and MRSA 4-patient to continue the daptomycin along with meropenem, will benefit from surgical debridement will discuss further with the vascular surgery Dictation was produced using [employer] dictation software. please excuse any grammatical, word or spelling errors. Time with Patient: Less than 30
--- NOTE | 2023-11-02 02:47 | PN ---
PROGRESS NOTE An 83-year-old female patient has a long-standing history of wound on the left lower extremity involving the left heel, medial and lateral aspect of the lower leg. Medial and lateral aspect of the wound is granulating. Left heel wound had a debridement done and sent for deep culture under care of Infectious Disease. We changed the dressing today using Aquacel silver. This should be changed every 48 hours. MMODL / IJN: [id number] /
[2023-11-02 06:14] LABS: Glucose,Whole Blood 82 mg/dL (70-110)
[2023-11-02 12:07] LABS: Glucose,Whole Blood 112 mg/dL (70-110)
[2023-11-02 12:09] LABS: HCT 32.8 % (37.2-46.3); HGB 9.4 g/dL (12.0-15.0); MCH 24.5 pg (27.0-32.0); MCHC 28.7 g/dL (32.0-37.0); MCV 85.6 FL (80.0-97.0); Mean Platelet Volume 9.4 FL (9.5-12.2); NRBC Per 100 WBC 0 X 10*3/uL (0.00-0.01); Platelet Count 295 X 10*3/uL (140-440); RBC 3.83 X 10*6/uL (4.10-5.20); RDW 18.1 % (11.5-14.5)
--- NOTE | 2023-11-02 14:46 | P.PN ---
Subjective Progress Note Date: 11/02/23 Principal diagnosis: Reason for follow-up is left lower extremity wound and cellulitis Patient is a 83-year-old female with a past medical history significant for diabetes mellitus hypertension hyperlipidemia renal disorder the patient also have a history of chronic left lower extremity venous stasis ulcer and multiple episodes of cellulitis, presented to hospital with worsening wound to the left lower extremity concerning for infected wound and cellulitis. On today's visit that is 11/02/2023, Patient is afebrile patient is currently on room air and denies having any shortness of breath, the patient denies any chest pain or cough, the patient denies any nausea vomiting did not have any abdominal pain and no diarrhea, still complaining of pain to the left heel wound area and also some lower back pain. Patient white count is 6.70, local culture with VRE Pseudomonas and MRSA Objective - Vital Signs Vital signs: Vital Signs Temp 97.8 F 11/02/23 07:54 Pulse 63 11/02/23 07:54 Resp 16 11/02/23 07:54 BP 127/69 11/02/23 07:54 Pulse Ox 98 11/02/23 07:54 FiO2 Intake & Output 11/01/23 11/02/23 11/02/23 18:59 06:59 18:59 Intake Total 240 240 Output Total 700 750 Balance -460 -750 240 Intake: Oral 240 240 Output: Urine 700 750 Other: Voiding Method Indwelling Catheter Indwelling Catheter - Exam GENERAL DESCRIPTION: An elderly female lying in bed in no distress RESPIRATORY SYSTEM: Unlabored breathing , decreased breath sounds at bases HEART: S1 S2 regular rate and rhythm , ABDOMEN: Soft , no tenderness EXTREMITIES: Left heel wound is currently dressed no drainage on the dressing - Labs CBC & Chem 7: 11/02/23 05:59 11/01/23 06:24 Labs: Abnormal Lab Results - Last 24 Hours (Table) 11/01/23 11/01/23 11/02/23 Range/Units 17:29 19:51 05:59 RBC 3.83 L (4.10-5.20) X 10*6/uL Hgb 9.4 L (12.0-15.0) g/dL Hct 32.8 L (37.2-46.3) % MCH 24.5 L (27.0-32.0) pg MCHC 28.7 L (32.0-37.0) g/dL RDW 18.1 H (11.5-14.5) % MPV 9.4 L (9.5-12.2) FL POC Glucose (mg/dL) 157 H 151 H (70-110) mg/dL 11/02/23 Range/Units 12:05 RBC (4.10-5.20) X 10*6/uL Hgb (12.0-15.0) g/dL Hct (37.2-46.3) % MCH (27.0-32.0) pg MCHC (32.0-37.0) g/dL RDW (11.5-14.5) % MPV (9.5-12.2) FL POC Glucose (mg/dL) 112 H (70-110) mg/dL Microbiology - Last 24 Hours (Table) 10/30/23 02:07 Blood Culture - Preliminary Blood 10/30/23 02:07 Blood Culture - Preliminary Blood 10/30/23 02:07 Gram Stain - Final Leg - Left Wound Culture - Final Proteus mirabilis Pseudomonas aeruginosa Methicillin resist S. aureus 10/30/23 16:12 Gram Stain - Final Heel - Left Tissue Culture - Final Proteus mirabilis Enterococcus faecalis VRE Pseudomonas aeruginosa Assessment and Plan (1) Type 2 diabetes mellitus with other skin ulcer Current Visit: Yes Status: Acute Code(s): E11.622 - TYPE 2 DIABETES MELLITUS WITH OTHER SKIN ULCER; L98.499 - NON-PRESSURE CHRONIC ULCER OF SKIN OF SITES W UNSP SEVERITY SNOMED Code(s): 204740932 (2) Wound of left leg Current Visit: Yes Status: Acute Code(s): S81.802A - UNSPECIFIED OPEN WOUND, LEFT LOWER LEG, INITIAL ENCOUNTER SNOMED Code(s): 96305439809250440 (3) Allergy to multiple antibiotics Current Visit: No Status: Acute Code(s): Z88.1 - ALLERGY STATUS TO OTHER ANTIBIOTIC AGENTS SNOMED Code(s): 940158356 (4) Left leg cellulitis Current Visit: No Status: Acute Code(s): L03.116 - CELLULITIS OF LEFT LOWER LIMB SNOMED Code(s): 59854511111902277 Plan: 1-Patient with a chronic wound to the left lower extremity now presented to hospital with worsening pain swelling redness and drainage concerning for infection in this patient who has grown multiple different pathogen in the past last culture has been VRE Streptococcus agalactiae and MRSA 2-patient with multiple antibiotic ALLERGIES that would limit the number of antibiotic safe to use 3-local culture has been obtained which are currently growing Proteus Pseudomonas, VRE and MRSA 4-patient to continue the daptomycin along with meropenem, will benefit from surgical debridement this was discussed with Dr. Choe on the phone, planning to do at the bedside today patient will need PICC line for outpatient IV antibiotic therapy Dictation was produced using [employer] dictation software. please excuse any grammatical, word or spelling errors. Time with Patient: Less than 30
--- NOTE | 2023-11-02 15:52 | P.PN ---
Subjective Progress Note Date: 11/02/23 Hospital course: Patient is a very pleasant 76-year-old female with a past medical history of CAD, chronic diastolic heart failure, hypertension, hyperlipidemia, type II [id number] diabetes mellitus, chronic kidney disease stage IIIb, history of DVTs on Eliquis and peripheral vascular deficiency with chronic venous stasis and diabetic ulcers status postsurgical debridement with history of MRSA and VRE. She presented to the emergency department with complaints of worsening left lower extremity ulcerations despite outpatient care and weekly visits from wound care nurse. She underwent evaluation in the emergency department. Vital signs upon arrival show blood pressure 132/53, heart rate 64, respiratory rate 18, temp 97.3 F, and SpO2 100% on room air. Labs were completed and reviewed. CBC showing leukocytosis with WBC count of 13.3 and microchromic anemia with hemoglobin of 10.6 and MCH of 24.6. BMP revealing mild metabolic acidosis with chloride of 119, bicarb 17, anion gap 6, and renal function consistent with stage IIIb chronic kidney disease with BUN of 33, creatinine 1.28, and GFR of 38. Blood glucose was 82. Lactate was 1.1. Calcium was 5.8 with albumin of 1.9 showing corrected calcium of 7.9. Liver profile showing elevated alkaline phosphatase of 140. X-ray left tib-fib showing osseous structures remained demineralized with no new suspicious bony destruction to suggest acute osteomyelitis per radiology report when compared to previous imaging completed 08/30/2021. Patient was started on IV antibiotics and admitted under our services with consultation to infectious disease. Blood cultures and wound culture was sent to lab for analysis. Physical exam: Patient seen and fully evaluated at bedside this morning. Patient updated that we are awaiting final culture and sensitivity report as preliminary blood cultures showing positive for gram-negative bacilli. Discussed with patient the potential need for SNF placement on discharge. Patient currently agreeable. Discussed with watch case polisher/hospice social worker. Vital signs reviewed and stable. General: Nontoxic, no distress and appears stated age. Derm: Skin warm and dry, normal coloration for ethnicity. Head: Atraumatic, normocephalic and symmetric. Eyes: EOMs intact, no lid lag, and anicteric sclera Mouth: no lip lesions, mucus membranes moist Cardiovascular: regular rate and rhythm with normal S1S2, systolic murmur Lungs: Respirations even, regular, and unlabored on room air. Lungs CTA bilaterally, no rhonchi, no rales, no wheezing, and no accessory muscle usage. Abdominal: soft, nontender to palpation, no guarding, no appreciable organomegaly. Chronic Craven catheter. Ext: Bilateral lower extremities with moderate swelling and scaling of skin appearing chronic, however left lower extremity with stage II pressure ulcer to heal with multiple stage II ulcers to the left calf with surrounding erythema and drainage. Neuro: Speech clear, face symmetrical and CN II-XII grossly intact with no noted focal neuro deficits Psych: Alert and oriented to person, place, time, and situation. Appropriate and pleasant affect. 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 Wound cultures positive for VRE, Pseudomonas aeruginosa, Proteus mirabillis, and MRSA. Wound culture ulcer left leg positive for Proteus mirabillis, Pseudomonas aeruginosa, and MRSA. Wound culture left heel ulcer positive for Proteus mirabillis, Enterococcus faecalis VRE, and Pseudomonas aeruginosa. Blood cultures x 2 showing no growth to date. Continue IV antibiotics with daptomycin 500 mg every 24 hours and meropenem 1 g every 8 hours Infectious disease following, reviewed documentation in chart Vascular surgery following, Dr. Choe debrided ulcer of heel and send deep tissue sample culture to lab for analysis. Symptomatic care and pain management. Acute kidney injury -Hold nephrotoxic medications including torsemide and Aldactone and started patient on gentle IV fluid hydration with 0.9% normal saline at 75 cc/h. -Continue to monitor closely with repeat morning BMP. Morning BMP documented is received at 5:59 AM and is still pending as of 3:26 PM. Lab has been called for results and stating they are looking into. Will follow-up on these results once available. Type II [id number]-ccmrmodth diabetes mellitus Continue Farxiga and patient placed on glycemic protocol with NovoLog sliding scale. Hypocalcemia Critical calcium 5.8 with a corrected calcium of 7.9 secondary to albumin of 1.9. Order placed for calcium gluconate 1 g IVPB. History of CAD Chronic diastolic heart failure Hypertension Hyperlipidemia Patient to continue daily medication regimen with Norvasc 5 mg daily, Farxiga 5 mg daily, hydralazine 25 mg 3 times daily, and metoprolol 25 mg daily. History of DVTs Continue Eliquis 5 mg twice daily. Data and imaging reviewed: Vital signs reviewed. Blood pressure 127/69, heart rate 63, respiratory rate 16, temp 97.8 F, and SpO2 of 98% on room air. Wound culture ulcer left leg positive for Proteus mirabillis, Pseudomonas aeruginosa, and MRSA. Wound culture left heel ulcer positive for Proteus mirabillis, Enterococcus faecalis VRE, and Pseudomonas aeruginosa. Blood cultures x 2 showing no growth to date. Morning labs reviewed. CBC showing stable microcytic anemia with hemoglobin of 9.4. BMP and magnesium pending results. CODE STATUS: Full code DVT prophylaxis: Eliquis Anticipated discharge date: Clinical course to determine Anticipated discharge place: Clinical course to determine Patient was seen independently by Nurse Pracitioner. This document was prepared using [employer] dictation software. Please allow for errors in sample case porter, while rare they do occur. Objective - Vital Signs Vital signs: Vital Signs Temp 97.8 F 11/02/23 07:54 Pulse 63 11/02/23 07:54 Resp 16 11/02/23 07:54 BP 127/69 11/02/23 07:54 Pulse Ox 98 11/02/23 07:54 FiO2 Intake & Output 11/01/23 11/02/23 11/02/23 18:59 06:59 18:59 Intake Total 240 Output Total 700 750 Balance -460 -750 Intake: Oral 240 Output: Urine 700 750 Other: Voiding Method Indwelling Catheter Indwelling Catheter - Labs CBC & Chem 7: 11/02/23 05:59 11/01/23 06:24 Labs: Abnormal Lab Results - Last 24 Hours (Table) 11/01/23 11/01/23 11/01/23 Range/Units 06:24 06:24 11:45 RBC 3.93 L (4.10-5.20) X 10*6/uL Hgb 9.5 L (12.0-15.0) g/dL Hct 33.1 L (37.2-46.3) % MCH 24.2 L (27.0-32.0) pg MCHC 28.7 L (32.0-37.0) g/dL RDW 17.9 H (11.5-14.5) % MPV 8.8 L (9.5-12.2) FL Chloride 110 H (96-109) mmol/L BUN 35.9 H (9.0-27.0) mg/dL Creatinine 1.9 H (0.6-1.5) mg/dL Est GFR (CKD-EPI) 26 L (>=60) POC Glucose (mg/dL) 178 H (70-110) mg/dL Calcium 7.7 L (8.7-10.3) mg/dL Magnesium 2.5 H (1.5-2.4) mg/dL Total Bilirubin <0.2 L (0.3-1.2) mg/dL ALT 7 L (8-44) U/L Alkaline Phosphatase 160 H (41-126) U/L Total Protein 5.5 L (6.2-8.2) g/dL Albumin 2.7 L (3.8-4.9) g/dL Albumin/Globulin Ratio 0.96 L (1.60-3.17) Ratio 11/01/23 11/01/23 Range/Units 17:29 19:51 RBC (4.10-5.20) X 10*6/uL Hgb (12.0-15.0) g/dL Hct (37.2-46.3) % MCH (27.0-32.0) pg MCHC (32.0-37.0) g/dL RDW (11.5-14.5) % MPV (9.5-12.2) FL Chloride (96-109) mmol/L BUN (9.0-27.0) mg/dL Creatinine (0.6-1.5) mg/dL Est GFR (CKD-EPI) (>=60) POC Glucose (mg/dL) 157 H 151 H (70-110) mg/dL Calcium (8.7-10.3) mg/dL Magnesium (1.5-2.4) mg/dL Total Bilirubin (0.3-1.2) mg/dL ALT (8-44) U/L Alkaline Phosphatase (41-126) U/L Total Protein (6.2-8.2) g/dL Albumin (3.8-4.9) g/dL Albumin/Globulin Ratio (1.60-3.17) Ratio Microbiology - Last 24 Hours (Table) 10/30/23 16:12 Gram Stain - Final Heel - Left Tissue Culture - Final Proteus mirabilis Enterococcus faecalis VRE Pseudomonas aeruginosa 10/30/23 02:07 Blood Culture - Preliminary Blood 10/30/23 02:07 Blood Culture - Preliminary Blood 10/30/23 02:07 Gram Stain - Preliminary Leg - Left Wound Culture - Preliminary Proteus mirabilis Pseudomonas aeruginosa Presumptive MRSA
[2023-11-02] MEDS: LIDOCAINE 1% INJ 10MG/ML (20 ML MDV) SQ ONE (15:56)
[2023-11-02 17:15] LABS: Glucose,Whole Blood 194 mg/dL (70-110)
[2023-11-02] MEDS: LOPERAMIDE 2 MG CAP PO STA (21:31)
[2023-11-02 21:41] LABS: Glucose,Whole Blood 186 mg/dL (70-110)
[2023-11-03 02:28] LABS: Magnesium 2.6 mg/dL (1.5-2.4)
[2023-11-03 02:31] LABS: Blood Urea Nitrogen 37.8 mg/dL (9.0-27.0); Calcium 7.8 mg/dL (8.7-10.3); Carbon Dioxide 23.1 mmol/L (21.6-31.8); Chloride 108 mmol/L (96-109); Glucose 197 mg/dL (70-110); Potassium 4.5 mmol/L (3.5-5.5); Sodium 142 mmol/L (135-145)
[2023-11-03 06:14] LABS: Glucose,Whole Blood 114 mg/dL (70-110)
[2023-11-03] MEDS: DAPTOmycin 500 MG in SODIUM CHLORIDE 0.9% 50 ML IVPB SCH (06:16)
[2023-11-03 11:03] LABS: Glucose,Whole Blood 118 mg/dL (70-110)
[2023-11-03 11:19] LABS: HCT 34.2 % (37.2-46.3); HGB 9.8 g/dL (12.0-15.0); MCH 24.1 pg (27.0-32.0); MCHC 28.7 g/dL (32.0-37.0); Mean Platelet Volume 8.7 FL (9.5-12.2); NRBC Per 100 WBC 0 X 10*3/uL (0.00-0.01); Platelet Count 303 X 10*3/uL (140-440); RBC 4.07 X 10*6/uL (4.10-5.20); RDW 18.3 % (11.5-14.5); WBC 10.07 X 10*3/uL (4.50-10.00)
[2023-11-03 11:20] LABS: Basophils # (A) 0.09 X 10*3/uL (0.00-0.10); Basophils % (A) 0.9 %; Eosinophils # (A) 0.32 X 10*3/uL (0.04-0.35); Eosinophils % (A) 3.2 %; Lymphocytes # (A) 1.28 X 10*3/uL (0.90-5.00); Lymphocytes % (A) 12.7 %; Monocytes # (A) 0.76 X 10*3/uL (0.20-1.00); Monocytes % (A) 7.5 %; Neutrophils # (A) 7.56 X 10*3/uL (1.80-7.70); Neutrophils % (A) 75.1 %
[2023-11-03 11:25] LABS: ALT 10 U/L (8-44); AST 14 U/L (13-35); Albumin 2.7 g/dL (3.8-4.9); Alkaline Phosphatase 161 U/L (41-126); BUN/Creat Ratio 22.12 Ratio (12.00-20.00); Blood Urea Nitrogen 37.6 mg/dL (9.0-27.0); Calcium 7.5 mg/dL (8.7-10.3); Carbon Dioxide 23.2 mmol/L (21.6-31.8); Chloride 111 mmol/L (96-109); Glucose 111 mg/dL (70-110); Magnesium 2.7 mg/dL (1.5-2.4); Sodium 144 mmol/L (135-145); Total Bilirubin <0.2 mg/dL (0.3-1.2); Total Protein 5.7 g/dL (6.2-8.2)
[2023-11-03 11:50] LABS: Erythrocyte Sedimentation Rate 111 mm/Hr (0-30)
--- NOTE | 2023-11-03 13:17 | P.NPCON ---
History of Present Illness - Reason for Consult acute renal failure, chronic renal failure - History of Present Illness Reason for consultation: Acute kidney injury on chronic kidney disease History of present illness: Patient is a 83-year-old female seen in renal consultation for acute kidney injury on chronic kidney disease. Patient has chronic kidney disease stage IIIb with baseline creatinine 1.3-1.5 secondary to nephrosclerosis. Creatinine peaked at 1.9 this admission and is 1.7 today. Patient came to the hospital October 30, 2023 who worsening pain of her left lower extremity. Patient was astorga ving worsening erythema and drainage from the wound and came to the hospital. She is currently receiving IV antibiotics. Wound cultures have been positive for Proteus, Pseudomonas and MRSA. She is being followed by infectious disease. Patient does have history of diabetes. Denies history of coronary artery disease. Denies use of nonsteroidals. Patient states she lives with her son but has difficult time with transportation as she only can travel by ambulance. Hemodynamically stable. Oral intake fair. No vomiting or diarrhea. She was on Jardiance which is currently held. I do not see any nonsteroidals on her home medication list. Nephrology was consulted for PICC line clearance. Vital signs are stable. General: No acute distress. HEENT: Head exam is unremarkable. LUNGS: Lungs are clear to auscultation and percussion. HEART: Rate and Rhythm are regular. ABDOMEN: Nontender. EXTREMITITES: Left lower extremity wrapped. No drainage. Trace edema. 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, VRE Date of last positivie culture/infection: 04/19/23 MRSA and VRE MDRO Source:: Left Heel Past Surgical History: Appendectomy, Section, Cholecystectomy, Heart Catheterization, Hysterectomy Additional Past Surgical History / Comment(s): pericardial window, surgery mir eyes for glaucoma, cyst removal on abdomen Past Anesthesia/Blood Transfusion Reactions: Blood Transfusion Reaction Additional Past Anesthesia/Blood Transfusion Reaction / Comment(s): reaction to blood transfusion 25-30 yrs ago-"I got red and they pulled it out" Past Psychological History: No Psychological Hx Reported Smoking Status: Former smoker Past Alcohol Use History: None Reported Past Drug Use History: None Reported - Past Family History Father Family Medical History: Cancer Brother(s) Family Medical History: Cancer Medications and Allergies Home Medications Medication Instructions Recorded Confirmed Type Torsemide [Demadex] 20 mg PO DAILY 01/31/19 10/30/23 History Atorvastatin [Lipitor] 20 mg PO HS 08/27/21 10/30/23 History Empagliflozin [Jardiance] 10 mg PO DAILY 03/20/23 10/30/23 History Metoprolol Succinate (ER) [Toprol 25 mg PO DAILY 03/20/23 10/30/23 History XL] Spironolactone [Aldactone] 25 mg PO DAILY 03/20/23 10/30/23 History Apixaban [Eliquis] 5 mg PO BID 04/17/23 10/30/23 History Buprenorphine [Butrans 5 MCG/HR] 1 patch TRANSDERM SA 10/30/23 10/30/23 History Doxycycline Hyclate 100 mg PO BID 10/30/23 10/30/23 History Famotidine [Pepcid] 20 mg PO DAILY 10/30/23 10/30/23 History Gabapentin [Neurontin] 100 mg PO TID 10/30/23 10/30/23 History Glimepiride [Amaryl] 1 mg PO DAILY 10/30/23 10/30/23 History HYDROcodone/APAP 10-325MG [[place] 1 tab PO Q3H PRN 10/30/23 10/30/23 History 10-325] amLODIPine [Norvasc] 5 mg PO DAILY 10/30/23 10/30/23 History hydrALAZINE HCL [Apresoline] 25 mg PO TID 10/30/23 10/30/23 History Allergies Allergy/AdvReac Type Severity Reaction Status Date / Time cefepime Allergy Anaphylaxis Verified 10/30/23 10:16 latex Allergy Rash/red Verified 10/30/23 10:16 skin Penicillins Allergy Rash/Hives Verified 10/30/23 10:16 Physical Exam Vitals: Vital Signs Temp Pulse Resp BP BP Pulse Ox 11/03/23 07:40 98 F 65 16 113/63 97 11/03/23 02:00 98.4 F 79 15 126/69 95 11/02/23 23:26 97.9 F 88 18 109/76 100 11/02/23 20:00 97.9 F 71 15 125/80 98 11/02/23 16:56 62 117/65 11/02/23 14:00 97.8 F 49 L 16 103/53 94 L Intake and Output 11/02/23 11/03/23 11/03/23 22:59 06:59 14:59 Intake Total 240 Output Total 700 575 300 Balance -700 -575 -60 Intake: Oral 240 Output: Urine 700 575 300 Other: Voiding Method Indwelling Catheter # Bowel Movements 1 1 Results - Lab Results Most recent lab results Calcium 7.5 mg/dL (8.7-10.3) L 11/03/23 05:37 Magnesium 2.7 mg/dL (1.5-2.4) H 11/03/23 05:37 11/03/23 05:37 11/03/23 05:37 Assessment and Plan Plan: Assessment: 1. Acute kidney injury secondary to ATN secondary to severe sepsis. Creatinine peaked at 1.9 this admission and is 1.7 today. 2. Chronic kidney disease stage IIIb with baseline creatinine 1.3-1.5 secondary to nephrosclerosis and diabetic kidney disease. 3. Left lower extremity wound and cellulitis on IV antibiotics. 4. Diabetes mellitus. 5. Hypertension with chronic kidney disease. Controlled. Plan: Maintain IV fluids. Check renal ultrasound. Encouraged oral intake. Continue to hold SGLT2 inhibitor at this time. Avoid nephrotoxins. Continue to monitor renal function and urine output. Cleared for PICC line placement in the dominant arm. Advised to follow-up outpatient to establish chronic kidney disease care. Thank you for the consultation. I will continue to follow the patient with you during her hospital stay.
--- NOTE | 2023-11-03 14:38 | US ---
EXAMINATION TYPE: US kidneys/renal and bladder DATE OF EXAM: 11/03/2023 COMPARISON: CT 04/20/2023 CLINICAL INDICATION: Female, 83 years old with history of mayra; MAYRA EXAM MEASUREMENTS: Right Kidney: 10.3 x 6.0 x 4.8 cm Left Kidney: 11.4 x 4.6 x 5.6 cm Right Kidney: Cortex appears thin. No hydronephrosis or masses seen Left Kidney:Cortex appears thin. Anechoic area appears as a simple cyst seen laterally: 0.9 x 1.3 x 0 .8 cm. Bladder: Undistended. Catheter in place. Bilateral Jets seen: No IMPRESSION: 1. Cortical thinning bilaterally can be related to chronic renal failure. 2. Small simple appearing cyst left kidney
--- NOTE | 2023-11-03 15:34 | P.PN ---
Subjective Progress Note Date: 11/03/23 Hospital course: Patient is a very pleasant 76-year-old female with a past medical history of CAD, chronic diastolic heart failure, hypertension, hyperlipidemia, type II ovf-czmwcai-byjebqjgd diabetes mellitus, chronic kidney disease stage IIIb, history of DVTs on Eliquis and peripheral vascular deficiency with chronic venous stasis and diabetic ulcers status postsurgical debridement with history of MRSA and VRE. She presented to the emergency department with complaints of worsening left lower extremity ulcerations despite outpatient care and weekly visits from wound care nurse. She underwent evaluation in the emergency department. Vital signs upon arrival show blood pressure 132/53, heart rate 64, respiratory rate 18, temp 97.3 F, and SpO2 100% on room air. Labs were completed and reviewed. CBC showing leukocytosis with WBC count of 13.3 and microchromic anemia with hemoglobin of 10.6 and MCH of 24.6. BMP revealing mild metabolic acidosis with chloride of 119, bicarb 17, anion gap 6, and renal function consistent with stage IIIb chronic kidney disease with BUN of 33, creatinine 1.28, and GFR of 38. Blood glucose was 82. Lactate was 1.1. Calcium was 5.8 with albumin of 1.9 showing corrected calcium of 7.9. Liver profile showing elevated alkaline phosphatase of 140. X-ray left tib-fib showing osseous structures remained demineralized with no new suspicious bony destruction to suggest acute osteomyelitis per radiology report when compared to previous imaging completed 08/30/2021. Patient was started on IV antibiotics and admitted under our services with consultation to infectious disease. Blood cultures and wound culture was sent to lab for analysis.Wound culture ulcer left leg positive for Proteus mirabillis, Pseudomonas aeruginosa, and MRSA. Wound culture left heel ulcer positive for Proteus mirabillis, Enterococcus faecalis VRE, and Pseudomonas aeruginosa. Blood cultures x 2 showing no growth to date. Patient remains on IV antibiotics. She needs to have PICC line placed and plans to be discharged home with home care as she has declined SNF placement. Discharge pending PICC line placement, PICC line not able to be placed until . Physical exam: Patient seen and fully evaluated at bedside this morning. Patient updated that we are awaiting final culture and sensitivity report as preliminary blood cultures showing positive for gram-negative bacilli. Discussed with patient the potential need for SNF placement on discharge. Patient currently agreeable. Discussed with shoe caser/social science manager. Vital signs reviewed and stable. General: Nontoxic, no distress and appears stated age. Derm: Skin warm and dry, normal coloration for ethnicity. Head: Atraumatic, normocephalic and symmetric. Eyes: EOMs intact, no lid lag, and anicteric sclera Mouth: no lip lesions, mucus membranes moist Cardiovascular: regular rate and rhythm with normal S1S2, systolic murmur Lungs: Respirations even, regular, and unlabored on room air. Lungs CTA bilaterally, no rhonchi, no rales, no wheezing, and no accessory muscle usage. Abdominal: soft, nontender to palpation, no guarding, no appreciable organomegaly. Chronic Craven catheter. Ext: Bilateral lower extremities with moderate swelling and scaling of skin ap pearing chronic, however left lower extremity with stage II pressure ulcer to heal with multiple stage II ulcers to the left calf with surrounding erythema and drainage. Neuro: Speech clear, face symmetrical and CN II-XII grossly intact with no noted focal neuro deficits Psych: Alert and oriented to person, place, time, and situation. Appropriate and pleasant affect. 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 Wound cultures positive for VRE, Pseudomonas aeruginosa, Proteus mirabillis, and MRSA. Wound culture ulcer left leg positive for Proteus mirabillis, Pseudomonas aeruginosa, and MRSA. Wound culture left heel ulcer positive for Proteus mirabillis, Enterococcus faecalis VRE, and Pseudomonas aeruginosa. Blood cultures x 2 showing no growth to date. Continue IV antibiotics with daptomycin 500 mg every 24 hours and meropenem 1 g every 8 hours Infectious disease following, reviewed documentation in chart Vascular surgery following, Dr. Choe debrided ulcer of heel and send deep t issue sample culture to lab for analysis. Symptomatic care and pain management. Acute kidney injury -Hold nephrotoxic medications including Torsemide, Aldactone and Jardiance and patient started patient on gentle IV fluid hydration with 0.9% normal saline at 75 cc/h. -Nephrology was consulted. -Continue to monitor closely with repeat morning BMP. Type II otv-ptjdbpc-fzugcsiit diabetes mellitus Hold Farxiga and continue glycemic protocol with NovoLog sliding scale. Hypocalcemia. Critical calcium 5.8 with a corrected calcium of 7.9 secondary to albumin of 1.9. Order placed for calcium gluconate 1 g IVPB. Status post replacement corrected calcium is now 8.5. History of CAD Chronic diastolic heart failure Hypertension Hyperlipidemia Patient to continue daily medication regimen with Norvasc 5 mg daily, Farxiga 5 mg daily, hydralazine 25 mg 3 times daily, and metoprolol 25 mg daily. History of DVTs Continue Eliquis 5 mg twice daily. Data and imaging reviewed: Vital signs reviewed. Blood pressure 113/63, heart rate 65, respiratory rate 16, temp 98.0 F, and SpO2 of 97% on room air. Wound culture ulcer left leg positive for Proteus mirabillis, Pseudomonas aeruginosa, and MRSA. Wound culture left heel ulcer positive for Proteus mirabillis, Enterococcus faecalis VRE, and Pseudomonas aeruginosa. Blood cultures x 2 showing no growth to date. Morning labs reviewed. CBC showing mild leukocytosis with WBC count of 10.07 and microcytic anemia with hemoglobin of 9.8. BMP showing mild hyperchloremia with chloride of 111 and continued elevation of renal function with BUN of 37.6, creatinine 1.7, and GFR of 29. Calcium 7.5 with albumin of 2.7 resulting in corrected calcium of 8.5. CODE STATUS: Full code DVT prophylaxis: Eliquis Anticipated discharge date: Discharge delayed pending placement of PICC line, unable to be placed until 11/07/[address]: Home with home care on IV antibiotics Patient was seen independently by Nurse Pracitioner. This document was prepared using [employer] dictation software. Please allow for errors in uniform patrol police officer, while rare they do occur. Wild Ji NP rendered care for this patient independently, reviewed the findings and plan as documented in the note above. I did not physically speak with or examine the patient on this date. Objective - Vital Signs Vital signs: Vital Signs Temp 98 F 11/03/23 07:40 Pulse 65 11/03/23 07:40 Resp 16 11/03/23 07:40 BP 113/63 11/03/23 07:40 Pulse Ox 97 11/03/23 07:40 FiO2 Intake & Output 11/02/23 11/03/23 11/03/23 18:59 06:59 18:59 Intake Total 477 Output Total 700 575 Balance -223 -575 Intake: Oral 477 Output: Urine 700 575 Other: Voiding Method Indwelling Catheter # Bowel Movements 1 1 - Labs CBC & Chem 7: 11/03/23 05:37 11/04/23 04:23 Labs: Abnormal Lab Results - Last 24 Hours (Table) 11/02/23 11/02/23 11/02/23 Range/Units 05:59 12:05 16:21 RBC 3.83 L (4.10-5.20) X 10*6/uL Hgb 9.4 L (12.0-15.0) g/dL Hct 32.8 L (37.2-46.3) % MCH 24.5 L (27.0-32.0) pg MCHC 28.7 L (32.0-37.0) g/dL RDW 18.1 H (11.5-14.5) % MPV 9.4 L (9.5-12.2) FL BUN 37.8 H (9.0-27.0) mg/dL Creatinine 1.8 H (0.6-1.5) mg/dL Est GFR (CKD-EPI) 27 L (>=60) BUN/Creatinine Ratio 21.00 H (12.00-20.00) Ratio Glucose 197 H (70-110) mg/dL POC Glucose (mg/dL) 112 H (70-110) mg/dL Calcium 7.8 L (8.7-10.3) mg/dL Magnesium 2.6 H (1.5-2.4) mg/dL 11/02/23 11/02/23 11/03/23 Range/Units 17:13 21:40 06:08 RBC (4.10-5.20) X 10*6/uL Hgb (12.0-15.0) g/dL Hct (37.2-46.3) % MCH (27.0-32.0) pg MCHC (32.0-37.0) g/dL RDW (11.5-14.5) % MPV (9.5-12.2) FL BUN (9.0-27.0) mg/dL Creatinine (0.6-1.5) mg/dL Est GFR (CKD-EPI) (>=60) BUN/Creatinine Ratio (12.00-20.00) Ratio Glucose (70-110) mg/dL POC Glucose (mg/dL) 194 H 186 H 114 H (70-110) mg/dL Calcium (8.7-10.3) mg/dL Magnesium (1.5-2.4) mg/dL Microbiology - Last 24 Hours (Table) 10/30/23 02:07 Blood Culture - Preliminary Blood 10/30/23 02:07 Blood Culture - Preliminary Blood 10/30/23 02:07 Gram Stain - Final Leg - Left Wound Culture - Final Proteus mirabilis Pseudomonas aeruginosa Methicillin resist S. aureus
[2023-11-03 15:54] VITALS: BMI 34.4
--- NOTE | 2023-11-03 16:11 | P.PN ---
Subjective Progress Note Date: 11/03/23 Principal diagnosis: Reason for follow-up is left lower extremity wound and cellulitis Patient is a 83-year-old female with a past medical history significant for diabetes mellitus hypertension hyperlipidemia renal disorder the patient also have a history of chronic left lower extremity venous stasis ulcer and multiple episodes of cellulitis, presented to hospital with worsening wound to the left lower extremity concerning for infected wound and cellulitis. On today's visit that is 11/03/2023, patient has been afebrile, patient is breathing comfortably and is currently on room air, patient denies having any significant cough no chest pain shortness of breath, patient denies nausea vomiting or diarrhea and no abdominal pain still complaining of pain to the left heel area but no worsening. Patient white count is 10.97, creatinine is 1.7 Objective - Vital Signs Vital signs: Vital Signs Temp 98 F 11/03/23 07:40 Pulse 65 11/03/23 07:40 Resp 16 11/03/23 07:40 BP 113/63 11/03/23 07:40 Pulse Ox 97 11/03/23 07:40 FiO2 Intake & Output 11/02/23 11/03/23 11/03/23 18:59 06:59 18:59 Intake Total 477 240 Output Total 700 575 300 Balance -223 -575 -60 Intake: Oral 477 240 Output: Urine 700 575 300 Other: Voiding Method Indwelling Catheter # Bowel Movements 1 1 - Exam GENERAL DESCRIPTION: An elderly female lying in bed in no distress RESPIRATORY SYSTEM: Unlabored breathing , decreased breath sounds at bases HEART: S1 S2 regular rate and rhythm , ABDOMEN: Soft , no tenderness EXTREMITIES: Left heel wound is currently dressed no drainage on the dressing - Labs CBC & Chem 7: 11/03/23 05:37 11/03/23 05:37 Labs: Abnormal Lab Results - Last 24 Hours (Table) 11/02/23 11/02/23 11/02/23 Range/Units 05:59 12:05 16:21 WBC (4.50-10.00) X 10*3/uL RBC 3.83 L (4.10-5.20) X 10*6/uL Hgb 9.4 L (12.0-15.0) g/dL Hct 32.8 L (37.2-46.3) % MCH 24.5 L (27.0-32.0) pg MCHC 28.7 L (32.0-37.0) g/dL RDW 18.1 H (11.5-14.5) % MPV 9.4 L (9.5-12.2) FL Immature Gran # (0.00-0.04) X 10*3/uL Chloride (96-109) mmol/L BUN 37.8 H (9.0-27.0) mg/dL Creatinine 1.8 H (0.6-1.5) mg/dL Est GFR (CKD-EPI) 27 L (>=60) BUN/Creatinine Ratio 21.00 H (12.00-20.00) Ratio Glucose 197 H (70-110) mg/dL POC Glucose (mg/dL) 112 H (70-110) mg/dL Calcium 7.8 L (8.7-10.3) mg/dL Magnesium 2.6 H (1.5-2.4) mg/dL Total Bilirubin (0.3-1.2) mg/dL Alkaline Phosphatase (41-126) U/L C-Reactive Protein (0.00-0.80) mg/dL Total Protein (6.2-8.2) g/dL Albumin (3.8-4.9) g/dL Albumin/Globulin Ratio (1.60-3.17) Ratio 11/02/23 11/02/23 11/03/23 Range/Units 17:13 21:40 05:37 WBC 10.07 H (4.50-10.00) X 10*3/uL RBC 4.07 L (4.10-5.20) X 10*6/uL Hgb 9.8 L (12.0-15.0) g/dL Hct 34.2 L (37.2-46.3) % MCH 24.1 L (27.0-32.0) pg MCHC 28.7 L (32.0-37.0) g/dL RDW 18.3 H (11.5-14.5) % MPV 8.7 L (9.5-12.2) FL Immature Gran # 0.06 H (0.00-0.04) X 10*3/uL Chloride (96-109) mmol/L BUN (9.0-27.0) mg/dL Creatinine (0.6-1.5) mg/dL Est GFR (CKD-EPI) (>=60) BUN/Creatinine Ratio (12.00-20.00) Ratio Glucose (70-110) mg/dL POC Glucose (mg/dL) 194 H 186 H (70-110) mg/dL Calcium (8.7-10.3) mg/dL Magnesium (1.5-2.4) mg/dL Total Bilirubin (0.3-1.2) mg/dL Alkaline Phosphatase (41-126) U/L C-Reactive Protein (0.00-0.80) mg/dL Total Protein (6.2-8.2) g/dL Albumin (3.8-4.9) g/dL Albumin/Globulin Ratio (1.60-3.17) Ratio 11/03/23 11/03/23 11/03/23 Range/Units 05:37 06:08 11:02 WBC (4.50-10.00) X 10*3/uL RBC (4.10-5.20) X 10*6/uL Hgb (12.0-15.0) g/dL Hct (37.2-46.3) % MCH (27.0-32.0) pg MCHC (32.0-37.0) g/dL RDW (11.5-14.5) % MPV (9.5-12.2) FL Immature Gran # (0.00-0.04) X 10*3/uL Chloride 111 H (96-109) mmol/L BUN 37.6 H (9.0-27.0) mg/dL Creatinine 1.7 H (0.6-1.5) mg/dL Est GFR (CKD-EPI) 29 L (>=60) BUN/Creatinine Ratio 22.12 H (12.00-20.00) Ratio Glucose 111 H (70-110) mg/dL POC Glucose (mg/dL) 114 H 118 H (70-110) mg/dL Calcium 7.5 L (8.7-10.3) mg/dL Magnesium 2.7 H (1.5-2.4) mg/dL Total Bilirubin <0.2 L (0.3-1.2) mg/dL Alkaline Phosphatase 161 H (41-126) U/L C-Reactive Protein 4.50 H (0.00-0.80) mg/dL Total Protein 5.7 L (6.2-8.2) g/dL Albumin 2.7 L (3.8-4.9) g/dL Albumin/Globulin Ratio 0.90 L (1.60-3.17) Ratio Microbiology - Last 24 Hours (Table) 10/30/23 02:07 Blood Culture - Preliminary Blood 10/30/23 02:07 Blood Culture - Preliminary Blood 10/30/23 02:07 Gram Stain - Final Leg - Left Wound Culture - Final Proteus mirabilis Pseudomonas aeruginosa Methicillin resist S. aureus Assessment and Plan (1) Type 2 diabetes mellitus with other skin ulcer Current Visit: Yes Status: Acute Code(s): E11.622 - TYPE 2 DIABETES MELLITUS WITH OTHER SKIN ULCER; L98.499 - NON-PRESSURE CHRONIC ULCER OF SKIN OF SITES W UNSP SEVERITY SNOMED Code(s): 751802661 (2) Wound of left leg Current Visit: Yes Status: Acute Code(s): S81.802A - UNSPECIFIED OPEN WOUND, LEFT LOWER LEG, INITIAL ENCOUNTER SNOMED Code(s): 02712249594255096 (3) Allergy to multiple antibiotics Current Visit: No Status: Acute Code(s): Z88.1 - ALLERGY STATUS TO OTHER ANTIBIOTIC AGENTS SNOMED Code(s): 600139141 (4) Left leg cellulitis Current Visit: No Status: Acute Code(s): L03.116 - CELLULITIS OF LEFT LOWER LIMB SNOMED Code(s): 09070086189010935 Plan: 1-Patient with a chronic wound to the left lower extremity now presented to hospital with worsening pain swelling redness and drainage concerning for infection in this patient who has grown multiple different pathogen in the past last culture has been VRE Streptococcus agalactiae and MRSA 2-patient with multiple antibiotic ALLERGIES that would limit the number of antibiotic safe to use 3-local culture has been obtained which are currently growing Proteus Pseudomonas, VRE and MRSA 4-patient to continue the daptomycin along with meropenem, plan is for PICC line and outpatient IV antibiotic therapy, question concern answered continue current wound care per wound care Dictation was produced using [employer] dictation software. please excuse any grammatical, word or spelling errors. Time with Patient: Less than 30
[2023-11-03 17:20] LABS: Glucose,Whole Blood 171 mg/dL (70-110)
[2023-11-03 20:45] LABS: Glucose,Whole Blood 190 mg/dL (70-110)
[2023-11-04 06:29] LABS: Glucose,Whole Blood 108 mg/dL (70-110)
[2023-11-04 09:46] LABS: BUN/Creat Ratio 23.87 Ratio (12.00-20.00); Blood Urea Nitrogen 35.8 mg/dL (9.0-27.0); Calcium 7.8 mg/dL (8.7-10.3); Carbon Dioxide 21.6 mmol/L (21.6-31.8); Chloride 111 mmol/L (96-109); Glucose 126 mg/dL (70-110); Magnesium 2.5 mg/dL (1.5-2.4); Potassium 3.8 mmol/L (3.5-5.5); Sodium 143 mmol/L (135-145)
[2023-11-04] MEDS: BUPRENORPHINE TRANSDERM SCH (11:25)
--- NOTE | 2023-11-04 12:08 | P.PN ---
Subjective Progress Note Date: 11/04/23 76-year-old female with PMH of CAD, chronic diastolic heart failure, hypertension, hyperlipidemia, type II xhu-[id number]-[id number] diabetes mellitus, chronic kidney disease stage IIIb, history of DVTs on Eliquis and peripheral vascular deficiency with chronic venous stasis and diabetic ulcers status postsurgical debridement with history of MRSA and VRE. She presented to the emergency department with complaints of worsening left lower extremity ulcerations despite outpatient care and weekly visits from wound care nurse. She underwent evaluation in the emergency department. Vital signs upon arrival show blood pressure 132/53, heart rate 64, respiratory rate 18, temp 97.3 F, and SpO2 100% on room air. Labs were completed and reviewed. CBC showing leukocytosis with WBC count of 13.3 and microchromic anemia with hemoglobin of 10.6 and MCH of 24.6. BMP revealing mild metabolic acidosis with chloride of 119, bicarb 17, anion gap 6, and renal function consistent with stage IIIb chronic kidney disease with BUN of 33, creatinine 1.28, and GFR of 38. Blood glucose was 82. Lactate was 1.1. Calcium was 5.8 with albumin of 1.9 showing corrected calcium of 7.9. Liver profile showing elevated alkaline phosphatase of 140. X-ray left tib-fib showing osseous structures remained demineralized with no new suspicious bony destruction to suggest acute osteomyelitis per radiology report when compared to previous imaging completed 08/30/2021. Patient was started on IV antibiotics and admitted under our services with consultation to infectious disease. Blood cultures and wound culture was sent to lab for analysis. Wound culture ulcer left leg positive for Proteus mirabillis, Pseudomonas aeruginosa, and MRSA. Wound culture left heel ulcer positive for Proteus mirabillis, Enterococcus faecalis VRE, and Pseudomonas aeruginosa. Blood cultures x 2 showing no growth to date. Patient remains on IV antibiotics. She needs to have PICC line placed and plans to be discharged home with home care as she has declined SNF placement. Discharge pending PICC line placement, PICC line not able to be placed until . 11/03 Patient was seen and examined. Reports multiple episodes of diarrhea and sore bottom. No other complaints. BMP Cl 111, BUN 35.8, glu 126, Va 7.8. Mag 2.5. General: no distress, appears at stated age Derm: warm, dry Head: atraumatic, normocephalic, symmetric Eyes: EOMI, no lid lag, anicteric sclera Mouth: no lip lesion, mucus membranes moist Cardiovascular: S1S2 , no murmur Lungs: Decreased BS bilateral, no rhonchi, no rales , no accessory muscle use Abdominal: soft, nontender to palpation, + hudson Ext: Bilateral lower extremities with moderate swelling and scaling of skin appearing chronic, however left lower extremity with stage II pressure ulcer to heal with multiple stage II ulcers to the left calf with surrounding erythema and drainage. Neuro: No focal neurologic deficits Psych: Alert and oriented Based on my assessment of this patient, this patient meets a high complexity level of care. Patient has an acute diagnosis of bilateral lower extremity cellulitis that poses a threat to life or bodily function. Polymicrobial resistant infection of left lower extremity ulcers. Wound cultures positive for VRE, Pseudomonas aeruginosa, Proteus mirabillis, and MRSA. Diarrhea Acute kidney injury Diabetes mellitus with hyperglycemia Hypocalcemia History of CAD Chronic diastolic heart failure Hypertension Hyperlipidemia History of DVT Continue IV antibiotics with daptomycin 500 mg every 24 hours and meropenem 1 g every 8 hours. Plans for PICC line not available until Monday. Obtain C. diff. Start Questran 4 mg PO BID if negative. CODE STATUS: FULL CODE. DVT Prophylaxis: Eliquis GI Prophylaxis: Pepcid Designated medical POA if patient is not able to make medical decisions for themselves: I have reviewed the following customer care consultant notes: ID, Nephrology, Vascular I have reviewed the results of the following tests: BMP. I have ordered the following tests: C. diff. I have discussed the care of this patient with the following independent historian: STEVE. I have independently interpreted the following test below: I have discussed the management of this patient with the following physician: Objective - Vital Signs Vital signs: Vital Signs Temp 97.8 F 11/04/23 07:20 Pulse 62 11/04/23 07:20 Resp 17 11/04/23 07:20 BP 106/59 11/04/23 07:20 Pulse Ox 97 11/04/23 07:20 FiO2 Intake & Output 11/03/23 11/04/23 11/04/23 18:59 06:59 18:59 Intake Total 1257 237 Output Total 300 525 Balance 957 -525 237 Weight 99.79 kg Intake: Oral 1257 237 Output: Urine 300 525 Other: Voiding Method Indwelling Catheter # Bowel Movements 1 - Labs CBC & Chem 7: 11/03/23 05:37 11/04/23 04:23 Labs: Abnormal Lab Results - Last 24 Hours (Table) 11/03/23 11/03/23 11/04/23 Range/Units 17:19 20:43 04:23 Chloride 111 H (96-109) mmol/L BUN 35.8 H (9.0-27.0) mg/dL Est GFR (CKD-EPI) 34 L (>=60) BUN/Creatinine Ratio 23.87 H (12.00-20.00) Ratio Glucose 126 H (70-110) mg/dL POC Glucose (mg/dL) 171 H 190 H (70-110) mg/dL Calcium 7.8 L (8.7-10.3) mg/dL Magnesium 2.5 H (1.5-2.4) mg/dL
[2023-11-04 12:14] LABS: Glucose,Whole Blood 176 mg/dL (70-110)
--- NOTE | 2023-11-04 13:29 | P.PN ---
Subjective patient is seen for follow-up for acute kidney injury. Renal function has improved with IV hydration. serum creatinine decreased to 1.5 mg/dL from peak of 1.9. No significant complaints today. Objective - Vital Signs Vital signs: Vital Signs Temp 97.8 F 11/04/23 07:20 Pulse 62 11/04/23 07:20 Resp 17 11/04/23 07:20 BP 106/59 11/04/23 07:20 Pulse Ox 97 11/04/23 07:20 FiO2 Intake & Output 11/03/23 11/04/23 11/04/23 18:59 06:59 18:59 Intake Total 1257 237 Output Total 300 525 Balance 957 -525 237 Weight 99.79 kg Intake: Oral 1257 237 Output: Urine 300 525 Other: Voiding Method Indwelling Catheter # Bowel Movements 1 - Exam patient is awake, comfortable, no acute distress Examination of the heart S1 and S2 Examination of the lungs bilateral breath sounds are heard Abdomen is soft nontender Examination of lower extremities shows trace edema - Labs CBC & Chem 7: 11/03/23 05:37 11/04/23 04:23 Labs: Abnormal Lab Results - Last 24 Hours (Table) 11/03/23 11/03/23 11/04/23 Range/Units 17:19 20:43 04:23 Chloride 111 H (96-109) mmol/L BUN 35.8 H (9.0-27.0) mg/dL Est GFR (CKD-EPI) 34 L (>=60) BUN/Creatinine Ratio 23.87 H (12.00-20.00) Ratio Glucose 126 H (70-110) mg/dL POC Glucose (mg/dL) 171 H 190 H (70-110) mg/dL Calcium 7.8 L (8.7-10.3) mg/dL Magnesium 2.5 H (1.5-2.4) mg/dL 11/04/23 Range/Units 12:13 Chloride (96-109) mmol/L BUN (9.0-27.0) mg/dL Est GFR (CKD-EPI) (>=60) BUN/Creatinine Ratio (12.00-20.00) Ratio Glucose (70-110) mg/dL POC Glucose (mg/dL) 176 H (70-110) mg/dL Calcium (8.7-10.3) mg/dL Magnesium (1.5-2.4) mg/dL Microbiology - Last 24 Hours (Table) 10/30/23 02:07 Blood Culture - Final Blood 10/30/23 02:07 Blood Culture - Final Blood Assessment and Plan Assessment: 1. Acute kidney injury secondary to ATN secondary to severe sepsis. Creatinine peaked at 1.9 this admission and is 1.5 today. 2. Chronic kidney disease stage IIIb with baseline creatinine 1.3-1.5 secondary to nephrosclerosis and diabetic kidney disease. 3. Left lower extremity wound and cellulitis on IV antibiotics. 4. Diabetes mellitus. 5. Hypertension with chronic kidney disease. Controlled. Plan: continue with IV fluids. Repeat labs in a.m. Continue to avoid nephrotoxic agents.
[2023-11-04 17:12] LABS: Glucose,Whole Blood 176 mg/dL (70-110)
--- NOTE | 2023-11-04 17:12 | P.PN ---
Subjective Progress Note Date: 11/04/23 Principal diagnosis: Reason for follow-up is left lower extremity wound and cellulitis Patient is a 83-year-old female with a past medical history significant for diabetes mellitus hypertension hyperlipidemia renal disorder the patient also have a history of chronic left lower extremity venous stasis ulcer and multiple episodes of cellulitis, presented to hospital with worsening wound to the left lower extremity concerning for infected wound and cellulitis. On today's visit that is 11/04/2023,the patient remains to be afebrile and is breathing comfortably on room air in no distress patient did receive Dilaudid and was noted to be sleepy and did not answer any question no other changes reported by the nursing staff Patient creatinine is 1.5 Objective - Vital Signs Vital signs: Vital Signs Temp 98.3 F 11/04/23 14:00 Pulse 71 11/04/23 14:00 Resp 17 11/04/23 14:00 BP 105/57 11/04/23 14:00 Pulse Ox 98 11/04/23 14:00 FiO2 Intake & Output 11/03/23 11/04/23 11/04/23 18:59 06:59 18:59 Intake Total 1257 592 Output Total 300 525 Balance 957 -525 592 Weight 99.79 kg Intake: Oral 1257 592 Output: Urine 300 525 Other: Voiding Method Indwelling Catheter # Bowel Movements 1 - Exam GENERAL DESCRIPTION: An elderly female lying in bed in no distress RESPIRATORY SYSTEM: Unlabored breathing , decreased breath sounds at bases HEART: S1 S2 regular rate and rhythm , ABDOMEN: Soft , no tenderness EXTREMITIES: Left heel wound is currently dressed no drainage on the dressing - Labs CBC & Chem 7: 11/03/23 05:37 11/04/23 04:23 Labs: Abnormal Lab Results - Last 24 Hours (Table) 11/03/23 11/03/23 11/04/23 Range/Units 17:19 20:43 04:23 Chloride 111 H (96-109) mmol/L BUN 35.8 H (9.0-27.0) mg/dL Est GFR (CKD-EPI) 34 L (>=60) BUN/Creatinine Ratio 23.87 H (12.00-20.00) Ratio Glucose 126 H (70-110) mg/dL POC Glucose (mg/dL) 171 H 190 H (70-110) mg/dL Calcium 7.8 L (8.7-10.3) mg/dL Magnesium 2.5 H (1.5-2.4) mg/dL 11/04/23 Range/Units 12:13 Chloride (96-109) mmol/L BUN (9.0-27.0) mg/dL Est GFR (CKD-EPI) (>=60) BUN/Creatinine Ratio (12.00-20.00) Ratio Glucose (70-110) mg/dL POC Glucose (mg/dL) 176 H (70-110) mg/dL Calcium (8.7-10.3) mg/dL Magnesium (1.5-2.4) mg/dL Microbiology - Last 24 Hours (Table) 10/30/23 02:07 Blood Culture - Final Blood 10/30/23 02:07 Blood Culture - Final Blood Assessment and Plan (1) Type 2 diabetes mellitus with other skin ulcer Current Visit: Yes Status: Acute Code(s): E11.622 - TYPE 2 DIABETES MELLITUS WITH OTHER SKIN ULCER; L98.499 - NON-PRESSURE CHRONIC ULCER OF SKIN OF SITES W UNSP SEVERITY SNOMED Code(s): 699200327 (2) Wound of left leg Current Visit: Yes Status: Acute Code(s): S81.802A - UNSPECIFIED OPEN WOUND, LEFT LOWER LEG, INITIAL ENCOUNTER SNOMED Code(s): 26444653200196197 (3) Allergy to multiple antibiotics Current Visit: No Status: Acute Code(s): Z88.1 - ALLERGY STATUS TO OTHER ANTIBIOTIC AGENTS SNOMED Code(s): 254947833 (4) Left leg cellulitis Current Visit: No Status: Acute Code(s): L03.116 - CELLULITIS OF LEFT LOWER LIMB SNOMED Code(s): 30021874697039892 Plan: 1-Patient with a chronic wound to the left lower extremity now presented to hospital with worsening pain swelling redness and drainage concerning for infection in this patient who has grown multiple different pathogen in the past last culture has been VRE Streptococcus agalactiae and MRSA 2-patient with multiple antibiotic ALLERGIES that would limit the number of antibiotic safe to use 3-local culture has been obtained which are currently growing Proteus Pseudomonas, VRE and MRSA 4-patient to continue the daptomycin along with meropenem, currently waiting for PICC line placement and outpatient IV antibiotic therapy, local care to continue per vascular surgery and wound care Dictation was produced using [employer] dictation software. please excuse any grammatical, word or spelling errors. Time with Patient: Less than 30
[2023-11-04] MEDS: CHOLESTYRAMINE (WITH SUGAR) 4 GM PACKET PO SCH (17:47)
[2023-11-04 20:57] LABS: Glucose,Whole Blood 172 mg/dL (70-110)
[2023-11-05 06:17] LABS: Glucose,Whole Blood 125 mg/dL (70-110)
--- NOTE | 2023-11-05 12:00 | P.PN ---
Subjective patient is seen for follow-up for acute kidney injury. Renal function has improved with IV hydration. serum creatinine decreased to 1.5 mg/dL from peak of 1.9. complaining of abdominal distention. Objective - Vital Signs Vital signs: Vital Signs Temp 97.4 F L 11/05/23 08:00 Pulse 59 L 11/05/23 08:00 Resp 22 11/05/23 08:00 BP 94/46 11/05/23 08:00 Pulse Ox 97 11/05/23 08:00 FiO2 Intake & Output 11/04/23 11/05/23 11/05/23 18:59 06:59 18:59 Intake Total 592 Output Total 650 Balance 592 -650 Intake: Oral 592 Output: Urine 650 Other: Voiding Method Indwelling Catheter Indwelling Catheter # Voids 1 # Bowel Movements 1 1 - Exam patient is awake, comfortable, no acute distress Examination of the heart S1 and S2 Examination of the lungs bilateral breath sounds are heard Abdomen is distended Examination of lower extremities shows trace edema - Labs CBC & Chem 7: 11/03/23 05:37 11/04/23 04:23 Labs: Abnormal Lab Results - Last 24 Hours (Table) 11/04/23 11/04/23 11/04/23 Range/Units 12:13 17:11 20:55 POC Glucose (mg/dL) 176 H 176 H 172 H (70-110) mg/dL 11/05/23 Range/Units 06:16 POC Glucose (mg/dL) 125 H (70-110) mg/dL Microbiology - Last 24 Hours (Table) 10/30/23 02:07 Blood Culture - Final Blood 10/30/23 02:07 Blood Culture - Final Blood Assessment and Plan Assessment: 1. Acute kidney injury secondary to ATN secondary to severe sepsis. Creatinine peaked at 1.9 this admission and is 1.5 2. Chronic kidney disease stage IIIb with baseline creatinine 1.3-1.5 secondary to nephrosclerosis and diabetic kidney disease. 3. Left lower extremity wound and cellulitis on IV antibiotics. 4. Diabetes mellitus. 5. Hypertension with chronic kidney disease. Controlled. Plan: continue with IV fluids. check abdominal x-ray Repeat labs in a.m. Continue to avoid nephrotoxic agents.
[2023-11-05 12:21] LABS: Glucose,Whole Blood 261 mg/dL (70-110)
--- NOTE | 2023-11-05 14:05 | XR ---
EXAMINATION TYPE: XR abdomen 2V DATE OF EXAM: 11/05/2023 COMPARISON: 04/19/2023 INDICATION: Rule out obstruction TECHNIQUE: Abdomen is examined in supine and upright views FINDINGS: There are prominent air-filled loops of bowel. Portion of this is colonic.. Some small bowel prominen ce however may be present. Recommend CT abdomen and pelvis for additional evaluation. Psoas margins are poorly visualized due to body habitus. No organomegaly is present. No mass is evident. IMPRESSION: 1. Dilated small bowel loops with air present within the colon. Partial small bowel obstruction shoul d be considered. Exam is limited due to body habitus. Recommend CT abdomen and pelvis with oral contr ast for additional workup A Red level critical message alert has been initiated for Sophia Bernal via the [employer] on 11/05/2023 2:02 PM. This message alert has been sent to Sophia Bernal via the pre ferences provided by the clinician for the receipt of Radiology Critical Findings. Message ID [id number] .
[2023-11-05] MEDS: IOPAMIDOL CONTRAST (ORAL USE) VIAL PO PRN (15:31)
--- NOTE | 2023-11-05 16:35 | P.PN ---
Subjective Progress Note Date: 11/05/23 76-year-old female with PMH of CAD, chronic diastolic heart failure, hypertension, hyperlipidemia, type II [id number] diabetes mellitus, chronic kidney disease stage IIIb, history of DVTs on Eliquis and peripheral vascular deficiency with chronic venous stasis and diabetic ulcers status postsurgical debridement with history of MRSA and VRE. She presented to the emergency department with complaints of worsening left lower extremity ulcerations despite outpatient care and weekly visits from wound care nurse. She underwent evaluation in the emergency department. Vital signs upon arrival show blood pressure 132/53, heart rate 64, respiratory rate 18, temp 97.3 F, and SpO2 100% on room air. Labs were completed and reviewed. CBC showing leukocytosis with WBC count of 13.3 and microchromic anemia with hemoglobin of 10.6 and MCH of 24.6. BMP revealing mild metabolic acidosis with chloride of 119, bicarb 17, anion gap 6, and renal function consistent with stage IIIb chronic kidney disease with BUN of 33, creatinine 1.28, and GFR of 38. Blood glucose was 82. Lactate was 1.1. Calcium was 5.8 with albumin of 1.9 showing corrected calcium of 7.9. Liver profile showing elevated alkaline phosphatase of 140. X-ray left tib-fib showing osseous structures remained demineralized with no new suspicious bony destruction to suggest acute osteomyelitis per radiology report when compared to previous imaging completed 08/30/2021. Patient was started on IV antibiotics and admitted under our services with consultation to infectious disease. Blood cultures and wound culture was sent to lab for analysis. Wound culture ulcer left leg positive for Proteus mirabillis, Pseudomonas aeruginosa, and MRSA. Wound culture left heel ulcer positive for Proteus mirabillis, Enterococcus faecalis VRE, and Pseudomonas aeruginosa. Blood cultures x 2 showing no growth to date. Patient remains on IV antibiotics. She needs to have PICC line placed and plans to be discharged home with home care as she has declined SNF placement. Discharge pending PICC line placement, PICC line not able to be placed until . 11/03 Patient was seen and examined. Reports multiple episodes of diarrhea and sore bottom. No other complaints. BMP Cl 111, BUN 35.8, glu 126, Va 7.8. Mag 2.5. 11/04 Patient was seen and examined. No diarrhea today. Reports abdominal bloating. Some nausea but no vomiting. Passing gas. KUB done shows dilated loops of bowel concerning for SBO. CT AP has been ordered to further evaluate. Patient placed NPO and surgery consulted. General: no distress, appears at stated age Derm: warm, dry Head: atraumatic, normocephalic, symmetric Eyes: EOMI, no lid lag, anicteric sclera Mouth: no lip lesion, mucus membranes moist Cardiovascular: S1S2 , no murmur Lungs: Decreased BS bilateral, no rhonchi, no rales , no accessory muscle use Abdominal: distended, nontender to palpation, + hudson Ext: Bilateral lower extremities with moderate swelling and scaling of skin valentin earing chronic, however left lower extremity with stage II pressure ulcer to heal with multiple stage II ulcers to the left calf with surrounding erythema and drainage. Neuro: No focal neurologic deficits Psych: Alert and oriented Based on my assessment of this patient, this patient meets a high complexity level of care. Patient has an acute diagnosis of bilateral lower extremity cellulitis com plicated by possible SBO that poses a threat to life or bodily function. 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 Wound cultur es positive for VRE, Pseudomonas aeruginosa, Proteus mirabillis, and MRSA. Diarrhea Acute kidney injury Diabetes mellitus with hyperglycemia Hypocalcemia History of CAD Chronic diastolic heart failure Hypertension Hyperlipidemia History of DVT KUB as above. CT AP ordered by ID. Patient placed NPO. Surgery consulted. Continue Daptomycin and Meropenem for polymicrobial infected LLE ulcer. CODE STATUS: FULL CODE. DVT Prophylaxis: Eliquis GI Prophylaxis: Pepcid Designated medical POA if patient is not able to make medical decisions for themselves: I have reviewed the following organizational consultant notes: ID, Nephrology I have reviewed the results of the following tests: I have ordered the following tests: CBC and BMP ordered for tomorrow morning. I have discussed the care of this patient with the following independent historian: STEVE. I have independently interpreted the following test below: KUB I have discussed the management of this patient with the following physician: Objective - Vital Signs Vital signs: Vital Signs Temp 97.4 F L 11/05/23 08:00 Pulse 59 L 11/05/23 08:00 Resp 22 11/05/23 08:00 BP 94/46 11/05/23 08:00 Pulse Ox 97 11/05/23 08:00 FiO2 Intake & Output 11/04/23 11/05/23 11/05/23 18:59 06:59 18:59 Intake Total 592 Output Total 650 Balance 592 -650 Intake: Oral 592 Output: Urine 650 Other: Voiding Method Indwelling Catheter Indwelling Catheter # Voids 1 # Bowel Movements 1 1 - Labs CBC & Chem 7: 11/03/23 05:37 11/04/23 04:23 Labs: Abnormal Lab Results - Last 24 Hours (Table) 11/04/23 11/04/23 11/05/23 Range/Units 17:11 20:55 06:16 POC Glucose (mg/dL) 176 H 172 H 125 H (70-110) mg/dL 11/05/23 Range/Units 12:20 POC Glucose (mg/dL) 261 H (70-110) mg/dL Microbiology - Last 24 Hours (Table) 10/30/23 02:07 Blood Culture - Final Blood 10/30/23 02:07 Blood Culture - Final Blood
--- NOTE | 2023-11-05 16:40 | P.PN ---
Subjective Progress Note Date: 11/05/23 Principal diagnosis: Reason for follow-up is left lower extremity wound and cellulitis Patient is a 83-year-old female with a past medical history significant for diabetes mellitus hypertension hyperlipidemia renal disorder the patient also have a history of chronic left lower extremity venous stasis ulcer and multiple episodes of cellulitis, presented to hospital with worsening wound to the left lower extremity concerning for infected wound and cellulitis. On today's visit that is 11/05/2023,the patient remains to be afebrile, patient is on room air not requiring supplemental oxygen and denies any shortness of breath no chest pain or cough.Patient denies having any nausea or vomiting, however has been complaining of significant abdominal distention and also have diarrhea last night but improved this morning pain to the left leg has decreased in intensity. No new labs has been obtained today creatinine was 1.5 as of yesterday Objective - Vital Signs Vital signs: Vital Signs Temp 97.4 F L 11/05/23 08:00 Pulse 59 L 11/05/23 08:00 Resp 22 11/05/23 08:00 BP 94/46 11/05/23 08:00 Pulse Ox 97 11/05/23 08:00 FiO2 Intake & Output 11/04/23 11/05/23 11/05/23 18:59 06:59 18:59 Intake Total 592 Output Total 650 Balance 592 -650 Intake: Oral 592 Output: Urine 650 Other: Voiding Method Indwelling Catheter Indwelling Catheter # Voids 1 # Bowel Movements 1 1 - Exam GENERAL DESCRIPTION: An elderly female lying in bed in no distress RESPIRATORY SYSTEM: Unlabored breathing , decreased breath sounds at bases HEART: S1 S2 regular rate and rhythm , ABDOMEN: Soft , distention EXTREMITIES: Left heel wound is currently dressed no drainage on the dressing - Labs CBC & Chem 7: 11/03/23 05:37 11/04/23 04:23 Labs: Abnormal Lab Results - Last 24 Hours (Table) 11/04/23 11/04/23 11/05/23 Range/Units 17:11 20:55 06:16 POC Glucose (mg/dL) 176 H 172 H 125 H (70-110) mg/dL 11/05/23 Range/Units 12:20 POC Glucose (mg/dL) 261 H (70-110) mg/dL Microbiology - Last 24 Hours (Table) 10/30/23 02:07 Blood Culture - Final Blood 10/30/23 02:07 Blood Culture - Final Blood Assessment and Plan (1) Type 2 diabetes mellitus with other skin ulcer Current Visit: Yes Status: Acute Code(s): E11.622 - TYPE 2 DIABETES MELLITUS WITH OTHER SKIN ULCER; L98.499 - NON-PRESSURE CHRONIC ULCER OF SKIN OF SITES W UNSP SEVERITY SNOMED Code(s): 090998069 (2) Wound of left leg Current Visit: Yes Status: Acute Code(s): S81.802A - UNSPECIFIED OPEN WOUND, LEFT LOWER LEG, INITIAL ENCOUNTER SNOMED Code(s): 52186598997956162 (3) Allergy to multiple antibiotics Current Visit: No Status: Acute Code(s): Z88.1 - ALLERGY STATUS TO OTHER ANTIBIOTIC AGENTS SNOMED Code(s): 153483741 (4) Left leg cellulitis Current Visit: No Status: Acute Code(s): L03.116 - CELLULITIS OF LEFT LOWER LIMB SNOMED Code(s): 42423707266758140 Plan: 1-Patient with a chronic wound to the left lower extremity now presented to hospital with worsening pain swelling redness and drainage concerning for infection in this patient who has grown multiple different pathogen in the past last culture has been VRE Streptococcus agalactiae and MRSA 2-patient with multiple antibiotic ALLERGIES that would limit the number of antibiotic safe to use 3-local culture growing Proteus Pseudomonas, VRE and MRSA 4-patient did have significant diarrhea stool for C. difficile is negative and also have significant abdominal distention and abnormal x-ray radiology recommending CT abdominal pelvis with contrast which will be ordered 5-patient to continue the daptomycin along with meropenem, and follow-up on the CT report Dictation was produced using [email or web address] dictation software. please excuse any grammatical, word or spelling errors. Time with Patient: Less than 30
[2023-11-05 17:23] LABS: Glucose,Whole Blood 147 mg/dL (70-110)
--- NOTE | 2023-11-05 19:07 | CT ---
EXAMINATION TYPE: CT abdomen pelvis wo con DATE OF EXAM: 11/05/2023 COMPARISON: 04/20/2023 INDICATION: Abdominal distention and abnormal x-ray DLP: 1405.0 mGycm, Automated exposure control for dose reduction was used. CONTRAST: 0 mL of Isovue 300. Study performed with Oral Contrast TECHNIQUE: Axial images were obtained from above the diaphragm to the pubic rami in the axial plane a t 5 mm thick sections. Reconstructed images are reviewed on the computer in the coronal plane. FINDINGS: Limited CT sections are obtained the lung bases. The lung bases are clear. Urinary calcification is present. CT ABDOMEN: Liver: Normal Spleen: Normal Pancreas: Normal Adrenal glands: The adrenal glands are normal. Gallbladder: Appears decompressed Kidneys: Left kidney appears atrophic. There is mild atrophy of the right kidney. Punctate calcificat ion is at the left ureterovesical junction estimated at 0.3 cm. No hydronephrosis is present. No cy sts are present. Aorta: Vascular calcification is within the aorta. Inferior vena cava: Inferior vena cava is very flattened likely related to the patient's volume statu s. CT PELVIS: There are multiple dilated loops of bowel. Oral contrast extends to the small bowel loops which are s omewhat prominent. The air-filled colon is prominent. There are scattered air-fluid levels within the colon. Dilatation extends to the rectum. Fecal debris is in the rectum. Correlate for gastroenteriti s. Ileus could be considered. There are loops of bowel which are incompletely distended or lack oral contrast limiting their evaluation. Appendix: Poorly visualized. No dilated tubular structure or inflammatory changes are evident. A shor t portion of the appendix may be partially visualized. Urinary bladder: Decompressed with a Craven catheter Genitourinary structures: Uterus and ovaries are not identified. Osseous structures: No suspicious lytic or sclerotic lesions. IMPRESSION: 1. Prominent small bowel loops are mildly prominent:. Scattered air-fluid levels present. Findings a ppear suggestive for gastroenteritis. Consider ileus. Follow-up recommended. 2. Nonobstructing 0.3 cm calcification at the left ureteropelvic junction
[2023-11-05 20:54] LABS: Glucose,Whole Blood 150 mg/dL (70-110)
[2023-11-06 06:08] LABS: Glucose,Whole Blood 121 mg/dL (70-110)
[2023-11-06 08:53] LABS: Basophils # (A) 0.07 X 10*3/uL (0.00-0.10); Basophils % (A) 0.7 %; Eosinophils # (A) 0.39 X 10*3/uL (0.04-0.35); HCT 36.6 % (37.2-46.3); HGB 10.4 g/dL (12.0-15.0); Lymphocytes # (A) 1.28 X 10*3/uL (0.90-5.00); Lymphocytes % (A) 13.2 %; MCH 24.3 pg (27.0-32.0); MCHC 28.4 g/dL (32.0-37.0); MCV 85.5 FL (80.0-97.0); Monocytes # (A) 0.95 X 10*3/uL (0.20-1.00); Monocytes % (A) 9.8 %; NRBC Per 100 WBC 0 X 10*3/uL (0.00-0.01); Neutrophils # (A) 6.93 X 10*3/uL (1.80-7.70); Neutrophils % (A) 71.5 %; Platelet Count 286 X 10*3/uL (140-440); RBC 4.28 X 10*6/uL (4.10-5.20); RDW 18.5 % (11.5-14.5)
[2023-11-06 09:02] LABS: ALT 7 U/L (8-44); AST 11 U/L (13-35); Albumin 2.7 g/dL (3.8-4.9); Alkaline Phosphatase 160 U/L (41-126); BUN/Creat Ratio 27.62 Ratio (12.00-20.00); Blood Urea Nitrogen 44.2 mg/dL (9.0-27.0); Calcium 7.6 mg/dL (8.7-10.3); Carbon Dioxide 21.8 mmol/L (21.6-31.8); Chloride 110 mmol/L (96-109); Globulin 2.7 g/dL (1.6-3.3); Glucose 115 mg/dL (70-110); Potassium 3.5 mmol/L (3.5-5.5); Sodium 142 mmol/L (135-145); Total Bilirubin <0.2 mg/dL (0.3-1.2); Total Protein 5.4 g/dL (6.2-8.2)
--- NOTE | 2023-11-06 11:20 | P.PN ---
Subjective Progress Note Date: 11/06/23 76-year-old female with PMH of CAD, chronic diastolic heart failure, hypertension, hyperlipidemia, type II [id number] diabetes mellitus, chronic kidney disease stage IIIb, history of DVTs on Eliquis and peripheral vascular deficiency with chronic venous stasis and diabetic ulcers status postsurgical debridement with history of MRSA and VRE. She presented to the emergency department with complaints of worsening left lower extremity ulcerations despite outpatient care and weekly visits from wound care nurse. She underwent evaluation in the emergency department. Vital signs upon arrival show blood pressure 132/53, heart rate 64, respiratory rate 18, temp 97.3 F, and SpO2 100% on room air. Labs were completed and reviewed. CBC showing leukocytosis with WBC count of 13.3 and microchromic anemia with hemoglobin of 10.6 and MCH of 24.6. BMP revealing mild metabolic acidosis with chloride of 119, bicarb 17, anion gap 6, and renal function consistent with stage IIIb chronic kidney disease with BUN of 33, creatinine 1.28, and GFR of 38. Blood glucose was 82. Lactate was 1.1. Calcium was 5.8 with albumin of 1.9 showing corrected calcium of 7.9. Liver profile showing elevated alkaline phosphatase of 140. X-ray left tib-fib showing osseous structures remained demineralized with no new suspicious bony destruction to suggest acute osteomyelitis per radiology report when compared to previous imaging completed 08/30/2021. Patient was started on IV antibiotics and admitted under our services with consultation to infectious disease. Blood cultures and wound culture was sent to lab for analysis. Wound culture ulcer left leg positive for Proteus mirabillis, Pseudomonas aeruginosa, and MRSA. Wound culture left heel ulcer positive for Proteus mirabillis, Enterococcus faecalis VRE, and Pseudomonas aeruginosa. Blood cultures x 2 showing no growth to date. Patient remains on IV antibiotics. She needs to have PICC line placed and plans to be discharged home with home care as she has declined SNF placement. Discharge pending PICC line placement, PICC line not able to be placed until . 11/03 Patient was seen and examined. Reports multiple episodes of diarrhea and sore bottom. No other complaints. BMP Cl 111, BUN 35.8, glu 126, Va 7.8. Mag 2.5. 11/04 Patient was seen and examined. No diarrhea today. Reports abdominal bloating. Some nausea but no vomiting. Passing gas. KUB done shows dilated loops of bowel concerning for SBO. CT AP has been ordered to further evaluate. Patient placed NPO and surgery consulted. 11/05 Patient was seen and examined. Multiple episodes of diarrhea today. CT AP shows gastroenteritis with concerns for ileus. CBC Hg 10.4, Hct 36.6. CMP Cl 110, BUN 44.2, Cr 1.6, glu 115, Ca 7.6, T. Bili < 0.2, AST 11, ALT 7, alk phos 160, alb 2.7. CRP 3.9. General: no distress, appears at stated age Derm: warm, dry Head: atraumatic, normocephalic, symmetric Eyes: EOMI, no lid lag, anicteric sclera Mouth: no lip lesion, mucus membranes moist Cardiovascular: S1S2 , no murmur Lungs: Decreased BS bilateral, no rhonchi, no rales , no accessory muscle use Abdominal: distended, nontender to palpation, + hudson Ext: Bilateral lower extremities with moderate swelling and scaling of skin appearing chronic, however left lower extremity with stage II pressure ulcer to heal with multiple stage II ulcers to the left calf with surrounding erythema and drainage. Neuro: No focal neurologic deficits Psych: Alert and oriented Based on my assessment of this patient, this patient meets a high complexity level of care. Patient has an acute diagnosis of bilateral lower extremity cellulitis complicated by possible SBO that poses a threat to life or bodily function. 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 Wound cultures positive for VRE, Pseudomonas aeruginosa, Proteus mirabillis, and MRSA. Diarrhea Acute kidney injury Diabetes mellitus with hyperglycemia Hypocalcemia History of CAD Chronic diastolic heart failure Hypertension Hyperlipidemia History of DVT CT AP as above. Patient placed NPO. Surgery consulted. Meropenem should provide gram negative and anerobic coverage. Continue Daptomycin and Meropenem for polymicrobial infected LLE ulcer. Plans for PICC line tomorrow. CODE STATUS: FULL CODE. DVT Prophylaxis: Eliquis GI Prophylaxis: Pepcid Designated medical POA if patient is not able to make medical decisions for themselves: I have reviewed the following technical assistance consultant notes: ID, Nephrology I have reviewed the results of the following tests: CBC, CMP, CT AP I have ordered the following tests: I have discussed the care of this patient with the following independent historian: STEVE. I have independently interpreted the following test below: I have discussed the management of this patient with the following physician: Objective - Vital Signs Vital signs: Vital Signs Temp 97.4 F L 11/06/23 08:00 Pulse 68 11/06/23 08:00 Resp 16 11/06/23 08:00 BP 108/57 11/06/23 08:00 Pulse Ox 97 11/06/23 08:00 FiO2 Intake & Output 11/05/23 11/06/23 11/06/23 18:59 06:59 18:59 Output Total 280 300 Balance -280 -300 Output: Urine 280 300 Other: Voiding Method Indwelling Catheter Indwelling Catheter Indwelling Catheter # Voids 1 1 # Bowel Movements 1 2 1 - Labs CBC & Chem 7: 11/06/23 06:04 11/06/23 06:04 Labs: Abnormal Lab Results - Last 24 Hours (Table) 11/05/23 11/05/23 11/05/23 Range/Units 12:20 17:21 20:52 Hgb (12.0-15.0) g/dL Hct (37.2-46.3) % MCH (27.0-32.0) pg MCHC (32.0-37.0) g/dL RDW (11.5-14.5) % MPV (9.5-12.2) FL Immature Gran # (0.00-0.04) X 10*3/uL Eosinophils # (0.04-0.35) X 10*3/uL Chloride (96-109) mmol/L BUN (9.0-27.0) mg/dL Creatinine (0.6-1.5) mg/dL Est GFR (CKD-EPI) (>=60) BUN/Creatinine Ratio (12.00-20.00) Ratio Glucose (70-110) mg/dL POC Glucose (mg/dL) 261 H 147 H 150 H (70-110) mg/dL Calcium (8.7-10.3) mg/dL Total Bilirubin (0.3-1.2) mg/dL AST (13-35) U/L ALT (8-44) U/L Alkaline Phosphatase (41-126) U/L C-Reactive Protein (0.00-0.80) mg/dL Total Protein (6.2-8.2) g/dL Albumin (3.8-4.9) g/dL Albumin/Globulin Ratio (1.60-3.17) Ratio 11/06/23 11/06/23 11/06/23 Range/Units 06:04 06:04 06:07 Hgb 10.4 L (12.0-15.0) g/dL Hct 36.6 L (37.2-46.3) % MCH 24.3 L (27.0-32.0) pg MCHC 28.4 L (32.0-37.0) g/dL RDW 18.5 H (11.5-14.5) % MPV 9.0 L (9.5-12.2) FL Immature Gran # 0.08 H (0.00-0.04) X 10*3/uL Eosinophils # 0.39 H (0.04-0.35) X 10*3/uL Chloride 110 H (96-109) mmol/L BUN 44.2 H (9.0-27.0) mg/dL Creatinine 1.6 H (0.6-1.5) mg/dL Est GFR (CKD-EPI) 31 L (>=60) BUN/Creatinine Ratio 27.62 H (12.00-20.00) Ratio Glucose 115 H (70-110) mg/dL POC Glucose (mg/dL) 121 H (70-110) mg/dL Calcium 7.6 L (8.7-10.3) mg/dL Total Bilirubin <0.2 L (0.3-1.2) mg/dL AST 11 L (13-35) U/L ALT 7 L (8-44) U/L Alkaline Phosphatase 160 H (41-126) U/L C-Reactive Protein 3.90 H (0.00-0.80) mg/dL Total Protein 5.4 L (6.2-8.2) g/dL Albumin 2.7 L (3.8-4.9) g/dL Albumin/Globulin Ratio 1.00 L (1.60-3.17) Ratio
--- NOTE | 2023-11-06 11:49 | P.PN ---
Subjective patient is seen for follow-up for acute kidney injury. Renal function has improved with IV hydration. serum creatinine decreased to 1.5 mg/dL from peak of 1.9. It is 1.6 today. Blood pressure is on the lower side. Hydralazine will be discontinued. abdominal distention is better. X-ray showed suggestion of possible partial bowel obstruction Objective - Vital Signs Vital signs: Vital Signs Temp 97.4 F L 11/06/23 08:00 Pulse 68 11/06/23 08:00 Resp 16 11/06/23 08:00 BP 108/57 11/06/23 08:00 Pulse Ox 97 11/06/23 08:00 FiO2 Intake & Output 11/05/23 11/06/23 11/06/23 18:59 06:59 18:59 Output Total 280 300 Balance -280 -300 Output: Urine 280 300 Other: Voiding Method Indwelling Catheter Indwelling Catheter Indwelling Catheter # Voids 1 1 # Bowel Movements 1 2 1 - Exam patient is awake, comfortable, no acute distress Examination of the heart S1 and S2 Examination of the lungs bilateral breath sounds are heard Abdomen is distended, improved Examination of lower extremities shows trace edema - Labs CBC & Chem 7: 11/06/23 06:04 11/06/23 06:04 Labs: Abnormal Lab Results - Last 24 Hours (Table) 11/05/23 11/05/23 11/05/23 Range/Units 12:20 17:21 20:52 Hgb (12.0-15.0) g/dL Hct (37.2-46.3) % MCH (27.0-32.0) pg MCHC (32.0-37.0) g/dL RDW (11.5-14.5) % MPV (9.5-12.2) FL Immature Gran # (0.00-0.04) X 10*3/uL Eosinophils # (0.04-0.35) X 10*3/uL Chloride (96-109) mmol/L BUN (9.0-27.0) mg/dL Creatinine (0.6-1.5) mg/dL Est GFR (CKD-EPI) (>=60) BUN/Creatinine Ratio (12.00-20.00) Ratio Glucose (70-110) mg/dL POC Glucose (mg/dL) 261 H 147 H 150 H (70-110) mg/dL Calcium (8.7-10.3) mg/dL Total Bilirubin (0.3-1.2) mg/dL AST (13-35) U/L ALT (8-44) U/L Alkaline Phosphatase (41-126) U/L C-Reactive Protein (0.00-0.80) mg/dL Total Protein (6.2-8.2) g/dL Albumin (3.8-4.9) g/dL Albumin/Globulin Ratio (1.60-3.17) Ratio 11/06/23 11/06/23 11/06/23 Range/Units 06:04 06:04 06:07 Hgb 10.4 L (12.0-15.0) g/dL Hct 36.6 L (37.2-46.3) % MCH 24.3 L (27.0-32.0) pg MCHC 28.4 L (32.0-37.0) g/dL RDW 18.5 H (11.5-14.5) % MPV 9.0 L (9.5-12.2) FL Immature Gran # 0.08 H (0.00-0.04) X 10*3/uL Eosinophils # 0.39 H (0.04-0.35) X 10*3/uL Chloride 110 H (96-109) mmol/L BUN 44.2 H (9.0-27.0) mg/dL Creatinine 1.6 H (0.6-1.5) mg/dL Est GFR (CKD-EPI) 31 L (>=60) BUN/Creatinine Ratio 27.62 H (12.00-20.00) Ratio Glucose 115 H (70-110) mg/dL POC Glucose (mg/dL) 121 H (70-110) mg/dL Calcium 7.6 L (8.7-10.3) mg/dL Total Bilirubin <0.2 L (0.3-1.2) mg/dL AST 11 L (13-35) U/L ALT 7 L (8-44) U/L Alkaline Phosphatase 160 H (41-126) U/L C-Reactive Protein 3.90 H (0.00-0.80) mg/dL Total Protein 5.4 L (6.2-8.2) g/dL Albumin 2.7 L (3.8-4.9) g/dL Albumin/Globulin Ratio 1.00 L (1.60-3.17) Ratio Assessment and Plan Assessment: 1. Acute kidney injury secondary to ATN secondary to severe sepsis. Creatinine peaked at 1.9 this admission and is 1.6 today. blood pressure is low therefore hydralazine will be held. 2. Chronic kidney disease stage IIIb with baseline creatinine 1.3-1.5 secondary to nephrosclerosis and diabetic kidney disease. 3. Left lower extremity wound and cellulitis on IV antibiotics. 4. Diabetes mellitus. 5. Hypertension with chronic kidney disease. Controlled. Plan: continue with IV fluids. DC hydralazine Repeat labs in a.m. Continue to avoid nephrotoxic agents.
[2023-11-06 12:47] LABS: Glucose,Whole Blood 115 mg/dL (70-110)
--- NOTE | 2023-11-06 17:32 | P.GSCN ---
History of Present Illness Consult date: 11/06/23 Reason for Consult: ileus History of present illness: this 83-year-old female who had some complaints of abdominal distention pain. The patient's nurse states her abdominal distention is improved today. She is after having multiple bouts of diarrhea. Patient states he has no significant abdominal pain right now. 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, 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 Source:: Left Heel Past Surgical History: Appendectomy, Section, Cholecystectomy, Heart Catheterization, Hysterectomy Additional Past Surgical History / Comment(s): pericardial window, surgery mir eyes for glaucoma, cyst removal on abdomen Past Anesthesia/Blood Transfusion Reactions: Blood Transfusion Reaction Additional Past Anesthesia/Blood Transfusion Reaction / Comm: reaction to blood transfusion 25-30 yrs ago-"I got red and they pulled it out" Past Psychological History: No Psychological Hx Reported Smoking Status: Former smoker Past Alcohol Use History: None Reported Past Drug Use History: None Reported - Past Family History Father Family Medical History: Cancer Brother(s) Family Medical History: Cancer Medications and Allergies Home Medications Medication Instructions Recorded Confirmed Type Torsemide [Demadex] 20 mg PO DAILY 01/31/19 10/30/23 History Atorvastatin [Lipitor] 20 mg PO HS 08/27/21 10/30/23 History Empagliflozin [Jardiance] 10 mg PO DAILY 03/20/23 10/30/23 History Metoprolol Succinate (ER) [Toprol 25 mg PO DAILY 03/20/23 10/30/23 History XL] Spironolactone [Aldactone] 25 mg PO DAILY 03/20/23 10/30/23 History Apixaban [Eliquis] 5 mg PO BID 04/17/23 10/30/23 History Buprenorphine [Butrans 5 MCG/HR] 1 patch TRANSDERM SA 10/30/23 10/30/23 History Doxycycline Hyclate 100 mg PO BID 10/30/23 10/30/23 History Famotidine [Pepcid] 20 mg PO DAILY 10/30/23 10/30/23 History Gabapentin [Neurontin] 100 mg PO TID 10/30/23 10/30/23 History Glimepiride [Amaryl] 1 mg PO DAILY 10/30/23 10/30/23 History HYDROcodone/APAP 10-325MG [[place] 1 tab PO Q3H PRN 10/30/23 10/30/23 History 10-325] amLODIPine [Norvasc] 5 mg PO DAILY 10/30/23 10/30/23 History hydrALAZINE HCL [Apresoline] 25 mg PO TID 10/30/23 10/30/23 History Allergies Allergy/AdvReac Type Severity Reaction Status Date / Time cefepime Allergy Anaphylaxis Verified 10/30/23 10:16 latex Allergy Rash/red Verified 10/30/23 10:16 skin Penicillins Allergy Rash/Hives Verified 10/30/23 10:16 Surgical - Exam Vital Signs Temp Pulse Resp BP Pulse Ox 97.3 F L 64 18 132/53 100 10/29/23 23:27 10/29/23 23:27 10/29/23 23:27 10/29/23 23:27 10/29/23 23:27 - General well developed, well nourished, no distress - Eyes PERRL - ENT normal pinna - Neck no masses - Respiratory normal expansion - Cardiovascular Rhythm: regular - Abdomen mildly distended Abdomen: soft, non tender Results - Labs 11/06/23 06:04 11/06/23 06:04 Abnormal Lab Results - Last 24 Hours (Table) 11/05/23 11/06/23 11/06/23 Range/Units 20:52 06:04 06:04 Hgb 10.4 L (12.0-15.0) g/dL Hct 36.6 L (37.2-46.3) % MCH 24.3 L (27.0-32.0) pg MCHC 28.4 L (32.0-37.0) g/dL RDW 18.5 H (11.5-14.5) % MPV 9.0 L (9.5-12.2) FL Immature Gran # 0.08 H (0.00-0.04) X 10*3/uL Eosinophils # 0.39 H (0.04-0.35) X 10*3/uL Chloride 110 H (96-109) mmol/L BUN 44.2 H (9.0-27.0) mg/dL Creatinine 1.6 H (0.6-1.5) mg/dL Est GFR (CKD-EPI) 31 L (>=60) BUN/Creatinine Ratio 27.62 H (12.00-20.00) Ratio Glucose 115 H (70-110) mg/dL POC Glucose (mg/dL) 150 H (70-110) mg/dL Calcium 7.6 L (8.7-10.3) mg/dL Magnesium (1.5-2.4) mg/dL Total Bilirubin <0.2 L (0.3-1.2) mg/dL AST 11 L (13-35) U/L ALT 7 L (8-44) U/L Alkaline Phosphatase 160 H (41-126) U/L C-Reactive Protein 3.90 H (0.00-0.80) mg/dL Total Protein 5.4 L (6.2-8.2) g/dL Albumin 2.7 L (3.8-4.9) g/dL Albumin/Globulin Ratio 1.00 L (1.60-3.17) Ratio 11/06/23 11/06/23 11/06/23 Range/Units 06:04 06:07 12:45 Hgb (12.0-15.0) g/dL Hct (37.2-46.3) % MCH (27.0-32.0) pg MCHC (32.0-37.0) g/dL RDW (11.5-14.5) % MPV (9.5-12.2) FL Immature Gran # (0.00-0.04) X 10*3/uL Eosinophils # (0.04-0.35) X 10*3/uL Chloride (96-109) mmol/L BUN (9.0-27.0) mg/dL Creatinine (0.6-1.5) mg/dL Est GFR (CKD-EPI) (>=60) BUN/Creatinine Ratio (12.00-20.00) Ratio Glucose (70-110) mg/dL POC Glucose (mg/dL) 121 H 115 H (70-110) mg/dL Calcium (8.7-10.3) mg/dL Magnesium 2.9 H (1.5-2.4) mg/dL Total Bilirubin (0.3-1.2) mg/dL AST (13-35) U/L ALT (8-44) U/L Alkaline Phosphatase (41-126) U/L C-Reactive Protein (0.00-0.80) mg/dL Total Protein (6.2-8.2) g/dL Albumin (3.8-4.9) g/dL Albumin/Globulin Ratio (1.60-3.17) Ratio Diabetes panel 11/06/23 Range/Units 06:04 Sodium 142 (135-145) mmol/L Potassium 3.5 (3.5-5.5) mmol/L Chloride 110 H (96-109) mmol/L Carbon Dioxide 21.8 (21.6-31.8) mmol/L BUN 44.2 H (9.0-27.0) mg/dL Creatinine 1.6 H (0.6-1.5) mg/dL Glucose 115 H (70-110) mg/dL Calcium 7.6 L (8.7-10.3) mg/dL AST 11 L (13-35) U/L ALT 7 L (8-44) U/L Alkaline Phosphatase 160 H (41-126) U/L Total Protein 5.4 L (6.2-8.2) g/dL Albumin 2.7 L (3.8-4.9) g/dL Calcium panel 11/06/23 Range/Units 06:04 Calcium 7.6 L (8.7-10.3) mg/dL Albumin 2.7 L (3.8-4.9) g/dL Pituitary panel 11/06/23 Range/Units 06:04 Sodium 142 (135-145) mmol/L Potassium 3.5 (3.5-5.5) mmol/L Chloride 110 H (96-109) mmol/L Carbon Dioxide 21.8 (21.6-31.8) mmol/L BUN 44.2 H (9.0-27.0) mg/dL Creatinine 1.6 H (0.6-1.5) mg/dL Glucose 115 H (70-110) mg/dL Calcium 7.6 L (8.7-10.3) mg/dL Adrenal panel 11/06/23 Range/Units 06:04 Sodium 142 (135-145) mmol/L Potassium 3.5 (3.5-5.5) mmol/L Chloride 110 H (96-109) mmol/L Carbon Dioxide 21.8 (21.6-31.8) mmol/L BUN 44.2 H (9.0-27.0) mg/dL Creatinine 1.6 H (0.6-1.5) mg/dL Glucose 115 H (70-110) mg/dL Calcium 7.6 L (8.7-10.3) mg/dL Total Bilirubin <0.2 L (0.3-1.2) mg/dL AST 11 L (13-35) U/L ALT 7 L (8-44) U/L Alkaline Phosphatase 160 H (41-126) U/L Total Protein 5.4 L (6.2-8.2) g/dL Albumin 2.7 L (3.8-4.9) g/dL Assessment and Plan Assessment: resolving ileus. Patient has diarrhea. Her C. diff is negative. Patient was started on full liquid diet. We will observe her closely.
[2023-11-06 17:37] LABS: Glucose,Whole Blood 112 mg/dL (70-110)
--- NOTE | 2023-11-06 19:29 | P.PN ---
Subjective Progress Note Date: 11/06/23 Principal diagnosis: Reason for follow-up is left lower extremity wound and cellulitis Patient is a 83-year-old female with a past medical history significant for diabetes mellitus hypertension hyperlipidemia renal disorder the patient also have a history of chronic left lower extremity venous stasis ulcer and multiple episodes of cellulitis, presented to hospital with worsening wound to the left lower extremity concerning for infected wound and cellulitis. On today's visit that is 11/06/2023, the patient continues to be afebrile, the patient is on room air and breathing comfortably, the Pt denies having any chest pain or cough, the patient denies having any abdominal pain still having some abdominal distention slightly decreased and diarrhea seem to have slowed on patient pain to the left heel has decreased in intensity. Patient white count is 9.70, creatinine is 1.6 stool for C. difficile was negative CT abdominal pelvis did show some prominent small bowel loops gastroenteritis did not mention any evidence of colitis Objective - Vital Signs Vital signs: Vital Signs Temp 97.4 F L 11/06/23 08:00 Pulse 68 11/06/23 08:00 Resp 16 11/06/23 08:00 BP 108/57 11/06/23 08:00 Pulse Ox 97 11/06/23 08:00 FiO2 Intake & Output 11/05/23 11/06/23 11/06/23 18:59 06:59 18:59 Output Total 280 300 Balance -280 -300 Output: Urine 280 300 Other: Voiding Method Indwelling Catheter Indwelling Catheter Indwelling Catheter # Voids 1 1 # Bowel Movements 1 2 1 - Exam GENERAL DESCRIPTION: An elderly female lying in bed in no distress RESPIRATORY SYSTEM: Unlabored breathing , decreased breath sounds at bases HEART: S1 S2 regular rate and rhythm , ABDOMEN: Soft , distention EXTREMITIES: Left heel wound is currently dressed no drainage on the dressing - Labs CBC & Chem 7: 11/06/23 06:04 11/06/23 06:04 Labs: Abnormal Lab Results - Last 24 Hours (Table) 11/05/23 11/05/23 11/06/23 Range/Units 17:21 20:52 06:04 Hgb 10.4 L (12.0-15.0) g/dL Hct 36.6 L (37.2-46.3) % MCH 24.3 L (27.0-32.0) pg MCHC 28.4 L (32.0-37.0) g/dL RDW 18.5 H (11.5-14.5) % MPV 9.0 L (9.5-12.2) FL Immature Gran # 0.08 H (0.00-0.04) X 10*3/uL Eosinophils # 0.39 H (0.04-0.35) X 10*3/uL Chloride (96-109) mmol/L BUN (9.0-27.0) mg/dL Creatinine (0.6-1.5) mg/dL Est GFR (CKD-EPI) (>=60) BUN/Creatinine Ratio (12.00-20.00) Ratio Glucose (70-110) mg/dL POC Glucose (mg/dL) 147 H 150 H (70-110) mg/dL Calcium (8.7-10.3) mg/dL Total Bilirubin (0.3-1.2) mg/dL AST (13-35) U/L ALT (8-44) U/L Alkaline Phosphatase (41-126) U/L C-Reactive Protein (0.00-0.80) mg/dL Total Protein (6.2-8.2) g/dL Albumin (3.8-4.9) g/dL Albumin/Globulin Ratio (1.60-3.17) Ratio 11/06/23 11/06/23 11/06/23 Range/Units 06:04 06:07 12:45 Hgb (12.0-15.0) g/dL Hct (37.2-46.3) % MCH (27.0-32.0) pg MCHC (32.0-37.0) g/dL RDW (11.5-14.5) % MPV (9.5-12.2) FL Immature Gran # (0.00-0.04) X 10*3/uL Eosinophils # (0.04-0.35) X 10*3/uL Chloride 110 H (96-109) mmol/L BUN 44.2 H (9.0-27.0) mg/dL Creatinine 1.6 H (0.6-1.5) mg/dL Est GFR (CKD-EPI) 31 L (>=60) BUN/Creatinine Ratio 27.62 H (12.00-20.00) Ratio Glucose 115 H (70-110) mg/dL POC Glucose (mg/dL) 121 H 115 H (70-110) mg/dL Calcium 7.6 L (8.7-10.3) mg/dL Total Bilirubin <0.2 L (0.3-1.2) mg/dL AST 11 L (13-35) U/L ALT 7 L (8-44) U/L Alkaline Phosphatase 160 H (41-126) U/L C-Reactive Protein 3.90 H (0.00-0.80) mg/dL Total Protein 5.4 L (6.2-8.2) g/dL Albumin 2.7 L (3.8-4.9) g/dL Albumin/Globulin Ratio 1.00 L (1.60-3.17) Ratio Assessment and Plan (1) Type 2 diabetes mellitus with other skin ulcer Current Visit: Yes Status: Acute Code(s): E11.622 - TYPE 2 DIABETES MELLITUS WITH OTHER SKIN ULCER; L98.499 - NON-PRESSURE CHRONIC ULCER OF SKIN OF SITES W UNSP SEVERITY SNOMED Code(s): 119575048 (2) Wound of left leg Current Visit: Yes Status: Acute Code(s): S81.802A - UNSPECIFIED OPEN WOUND, LEFT LOWER LEG, INITIAL ENCOUNTER SNOMED Code(s): 12036585432909815 (3) Allergy to multiple antibiotics Current Visit: No Status: Acute Code(s): Z88.1 - ALLERGY STATUS TO OTHER ANTIBIOTIC AGENTS SNOMED Code(s): 410010144 (4) Left leg cellulitis Current Visit: No Status: Acute Code(s): L03.116 - CELLULITIS OF LEFT LOWER LIMB SNOMED Code(s): 29995294693491300 Plan: 1-Patient with a chronic wound to the left lower extremity now presented to hospital with worsening pain swelling redness and drainage concerning for infection in this patient who has grown multiple different pathogen in the past last culture has been VRE Streptococcus agalactiae and MRSA 2-patient with multiple antibiotic ALLERGIES that would limit the number of antibiotic safe to use 3-local culture growing Proteus Pseudomonas, VRE and MRSA 4-patient did have significant diarrhea stool for C. difficile is negative and also have significant abdominal distention and abnormal x-ray radiology CT abdominal pelvis completed did not mention any colitis some evidence of ga stroenteritis questionable ileus General surgery has been consulted 5-patient to continue the daptomycin along with meropenem, PICC line for outpatient IV antibiotics Dictation was produced using [employer] dictation software. please excuse any grammatical, word or spelling errors. Time with Patient: Less than 30
[2023-11-06 20:23] LABS: Glucose,Whole Blood 178 mg/dL (70-110)
[2023-11-07 06:10] LABS: Glucose,Whole Blood 102 mg/dL (70-110)
[2023-11-07 07:50] LABS: INR 1.2 (<1.2); Prothrombin Time 12.4 sec (10.0-12.5)
[2023-11-07] MEDS ORDERED: LIDOCAINE 1% INJ 10MG/ML (20 ML MDV) ONE (09:23)
[2023-11-07] MEDS: SODIUM CHLORIDE 0.9% 1,000 ML IV ONE (09:38)
[2023-11-07] MEDS: LIDOCAINE 1% INJ 10MG/ML (30 ML VIAL-PF) SQ ONE (09:39)
--- NOTE | 2023-11-07 09:52 | P.OP ---
Date of Procedure: 11/07/23 Description of Procedure: Date of Procedure: Preoperative Diagnosis: Need for long-term IV antibiotic access. Postoperative Diagnosis: Same. Procedure(s) Performed: Ultrasound-guided cannulation right brachial vein. Insertion of peripherally inserted central catheter under fluoroscopic guidance. Anesthesia: local (1% Xylocaine.) Surgeon: Herber Estimated Blood Loss (ml): 5 IV fluids (ml): 0 Urine output (ml): 0 Pathology: none sent Condition: stable Disposition: no change Indications for Procedure: Patient is a 83-year-old female. Patient will require long-term IV antibiotics as an outpatient patient is offered a PICC line to allow for intravenous administration of antibiotics. Description of Procedure: Patient was brought to the special procedure suite. The right upper extremity sterilely prepped and draped in usual manner. Ultrasound was utilized to identify the brachial vein which was normally compressible free of visible thrombus. Permenant image was stored. 1% Xylocaine was utilized for local anesthesia tissues overlying the vein. Through this anesthetized area and with the aid of ultrasound a micropuncture needle was utilized to cannulate the vein. Once cannulated, Softip guidewire was advanced into the vein. The needle was withdrawn and a micropuncture sheath and dilator advanced over the guidewire. The guidewire was withdrawn and exchanged for the PICC guidewire and measured 39 cm to the cavoatrial junction. The catheter was cut to size and advanced into the cavoatrial junction without resistance. The sheath was peeled away. Blood was easily withdrawn through the catheter and the catheter was then flushed with heparinized saline solution and secured to the skin. Patient tolerated procedure well and was returned to their room in satisfactory and stable condition.
--- NOTE | 2023-11-07 11:15 | IR ---
PICC Insertion: EXAMINATION TYPE: IR cvc insert >=5 years Intraoperative/procedural fluoroscopic services were provid ed. CLINICAL INDICATION:Female, 83 years old with history of Abx, 0.2m/2.34DAP, 4F 39cm rt brachial PICC; , [facility] Total fluoroscopy time is 0.2 min. DAP: 2.34 Gycm2 Please see the operative/procedural note for further details.
[2023-11-07 11:42] LABS: Glucose,Whole Blood 207 mg/dL (70-110)
[2023-11-07 11:57] LABS: African American GFR (CKD) 43 (>60 ml/min/1.73 sqM); Anion Gap 8 mmol/L; Blood Urea Nitrogen 46 mg/dL (7-17); Calcium 7.3 mg/dL (8.4-10.2); Carbon Dioxide 17 mmol/L (22-30); Chloride 116 mmol/L (98-107); Glucose 107 mg/dL (74-99); Non-African American GFR(CKD) 37 (>60 ml/min/1.73 sqM); Potassium 3.4 mmol/L (3.5-5.1); Sodium 141 mmol/L (137-145)
--- NOTE | 2023-11-07 12:50 | P.PN ---
Subjective Progress Note Date: 11/07/23 CHIEF COMPLAINT: Ileus HISTORY OF PRESENT ILLNESS: Surgical service is following in regards to patient's abdominal ileus. She reports no abdominal pain. She is having diarrhea. She reports still feeling bloated but it has decreased. She does have nausea no vomiting. Afebrile. She is status post PICC line placement potassium is 3.4. PHYSICAL EXAM: VITAL SIGNS: Reviewed. GENERAL: no acute distress. ABDOMEN: Soft. Distended. Nontender NEUROLOGIC: Alert and oriented. Cranial nerves II through XII grossly intact. ASSESSMENT: 1. Ileus 2. Hypokalemia 3. Left leg wound and cellulitis on antibiotics per ID service PLAN: -Continue full liquid diet. Adjusted to consistent carbohydrate diet -Encourage patient to increase activity level -Replace potassium Physician Painting Worker note has been reviewed by physician. Signing provider agrees with the documented findings, assessment, and plan of care. Objective - Vital Signs Vital signs: Vital Signs Temp 97.7 F 11/07/23 07:31 Pulse 61 11/07/23 07:31 Resp 17 11/07/23 07:31 BP 102/53 11/07/23 07:31 Pulse Ox 100 11/07/23 07:31 FiO2 Intake & Output 11/06/23 11/07/23 11/07/23 18:59 06:59 18:59 Intake Total 120 Output Total 460 300 Balance -460 -300 120 Intake: Oral 120 Output: Urine 460 300 Other: Voiding Method Indwelling Catheter Indwelling Catheter # Voids 1 # Bowel Movements 1 2 1 - Labs CBC & Chem 7: 11/06/23 06:04 11/07/23 07:13 Labs: Abnormal Lab Results - Last 24 Hours (Table) 11/06/23 11/06/23 11/06/23 Range/Units 06:04 12:45 17:36 INR (<1.2) Potassium (3.5-5.1) mmol/L Chloride (98-107) mmol/L Carbon Dioxide (22-30) mmol/L BUN (7-17) mg/dL Creatinine (0.52-1.04) mg/dL Glucose (74-99) mg/dL POC Glucose (mg/dL) 115 H 112 H (70-110) mg/dL Calcium (8.4-10.2) mg/dL Magnesium 2.9 H (1.5-2.4) mg/dL 11/06/23 11/07/23 11/07/23 Range/Units 20:22 07:13 07:13 INR 1.2 H (<1.2) Potassium 3.4 L (3.5-5.1) mmol/L Chloride 116 H (98-107) mmol/L Carbon Dioxide 17 L (22-30) mmol/L BUN 46 H (7-17) mg/dL Creatinine 1.31 H (0.52-1.04) mg/dL Glucose 107 H (74-99) mg/dL POC Glucose (mg/dL) 178 H (70-110) mg/dL Calcium 7.3 L (8.4-10.2) mg/dL Magnesium (1.5-2.4) mg/dL 11/07/23 Range/Units 11:30 INR (<1.2) Potassium (3.5-5.1) mmol/L Chloride (98-107) mmol/L Carbon Dioxide (22-30) mmol/L BUN (7-17) mg/dL Creatinine (0.52-1.04) mg/dL Glucose (74-99) mg/dL POC Glucose (mg/dL) 207 H (70-110) mg/dL Calcium (8.4-10.2) mg/dL Magnesium (1.5-2.4) mg/dL
[2023-11-07] MEDS: POTASSIUM CHLORIDE ER 20 MEQ TAB.ER PO STA (13:00)
--- NOTE | 2023-11-07 13:45 | CDI ---
Documentation Clarification Form Date: 11/07/2023 01:21:24 PM From: Mary Kay Gillette RN CCDS Phone: [phone] Admit Date: 10/30/2023 12:08:00 PM Patient Name: Eden Lyons Visit Number: [id number] Discharge Date: ATTENTION: The Clinical Documentation Specialists (CDI) and [facility] Coding Staff appreciate your assistance in clarifying documentation. Please respond to the clarification below the line at the bottom and electronically sign. The CDI & [facility] Coding staff will review the response and follow-up if needed. Please note: Queries are made part of the Legal Health Record. If you have any questions, please contact the author of this message via ITS. Dr. Mora Daniels Sepsis is documented 11/02 11/05, which may lack sufficient clinical evidence/support in the medical record. Additional clarification is requested. History/Risk Factors: 83-year-old female presents to the ED for worsening pain of her left lower extremity. Left lower extremity ulceration below the knee with significant venous stasis dermatitis and areas of unstageable ulceration with surrounding erythema. Medical History: Type II DM, Diastolic CHF, CKD, HTN and HLD. 10/29, H&P. Clinical Indicators: VSS, 10/28: B/P 132/53; HR 64; Temp 97.3 F Oral; RR 18; SpO2 100% RA VSS, 11/02: B/P 113/63; HR 65; Temp 98.0F Oral; RR 16; SpO2 97% RA LABS, 10/29: Wbc 13.3; Neutrophils 10.5; Cr. 1.28 LAB, 10/31: Cr 1.9 LABS, 11/02: Wbc 10.7; Neutrophils 7.56; Cr 1.7 11/02, Nephrology: Acute kidney injury secondary to ATN secondary to severe sepsis. Creatinine peaked at 1.9 this admission and is 1.7 today Treatment: 10/29 Vancomycin 1,500mg IVPB x 1; 10/29 Daptomycin 500mg IVPB x 1; 10/30 10/31 Daptomycin 500mg IVPB Q 24H; 10/30 Meropenem 1gm IVPB Q8H; 10/31 0.9ns 75cc/hr IV; 11/02 Daptomycin 500mg IVPB Q48H After work up and study, please clarify which diagnosis is most appropriate? [ x ] Sepsis ruled out [ ] Sepsis is a valid diagnosis as evidence by the following: (Please add rationale): [ ] Other, please specify [ ] Unable to determine (Template Last Reviewed: August 2023) ANTONINA
[2023-11-07] MEDS ORDERED: LOPERAMIDE 2 MG CAP PO PRN (13:49)
[2023-11-07] MEDS ORDERED: ZINC OXIDE PASTE (Z-GUARD) 1 APPLIC TOPICAL PRN (15:55)
--- NOTE | 2023-11-07 16:00 | P.PN ---
Subjective Progress Note Date: 11/07/23 Principal diagnosis: Reason for follow-up is left lower extremity wound and cellulitis Patient is a 83-year-old female with a past medical history significant for diabetes mellitus hypertension hyperlipidemia renal disorder the patient also have a history of chronic left lower extremity venous stasis ulcer and multiple episodes of cellulitis, presented to hospital with worsening wound to the left lower extremity concerning for infected wound and cellulitis. On today's visit that is 11/07/2023, Patient is afebrile patient is currently on room air and denies having any shortness of breath, the patient denies any chest pain or cough, the patient denies any nausea vomiting abdominal discomfort has decreased and diarrhea has slowed down per the nursing staff. Patient did have creatinine 1.31 white count was 9.70 as of yesterday Objective - Vital Signs Vital signs: Vital Signs Temp 97.5 F L 11/07/23 13:13 Pulse 57 L 11/07/23 13:13 Resp 16 11/07/23 13:13 BP 112/57 11/07/23 13:13 Pulse Ox 100 11/07/23 13:13 FiO2 Intake & Output 11/06/23 11/07/23 11/07/23 18:59 06:59 18:59 Intake Total 120 Output Total 460 300 Balance -460 -300 120 Intake: Oral 120 Output: Urine 460 300 Other: Voiding Method Indwelling Catheter Indwelling Catheter # Voids 1 # Bowel Movements 1 2 1 - Exam GENERAL DESCRIPTION: An elderly female lying in bed in no distress RESPIRATORY SYSTEM: Unlabored breathing , decreased breath sounds at bases HEART: S1 S2 regular rate and rhythm , ABDOMEN: Soft , distention EXTREMITIES: Left heel wound is currently dressed no drainage on the dressing - Labs CBC & Chem 7: 11/06/23 06:04 11/07/23 07:13 Labs: Abnormal Lab Results - Last 24 Hours (Table) 11/06/23 11/06/23 11/07/23 Range/Units 17:36 20:22 07:13 INR 1.2 H (<1.2) Potassium (3.5-5.1) mmol/L Chloride (98-107) mmol/L Carbon Dioxide (22-30) mmol/L BUN (7-17) mg/dL Creatinine (0.52-1.04) mg/dL Glucose (74-99) mg/dL POC Glucose (mg/dL) 112 H 178 H (70-110) mg/dL Calcium (8.4-10.2) mg/dL 11/07/23 11/07/23 Range/Units 07:13 11:30 INR (<1.2) Potassium 3.4 L (3.5-5.1) mmol/L Chloride 116 H (98-107) mmol/L Carbon Dioxide 17 L (22-30) mmol/L BUN 46 H (7-17) mg/dL Creatinine 1.31 H (0.52-1.04) mg/dL Glucose 107 H (74-99) mg/dL POC Glucose (mg/dL) 207 H (70-110) mg/dL Calcium 7.3 L (8.4-10.2) mg/dL Assessment and Plan (1) Type 2 diabetes mellitus with other skin ulcer Current Visit: Yes Status: Acute Code(s): E11.622 - TYPE 2 DIABETES MELLITUS WITH OTHER SKIN ULCER; L98.499 - NON-PRESSURE CHRONIC ULCER OF SKIN OF SITES W UNSP SEVERITY SNOMED Code(s): 373444168 (2) Wound of left leg Current Visit: Yes Status: Acute Code(s): S81.802A - UNSPECIFIED OPEN WOUND, LEFT LOWER LEG, INITIAL ENCOUNTER SNOMED Code(s): 55225254441595195 (3) Allergy to multiple antibiotics Current Visit: No Status: Acute Code(s): Z88.1 - ALLERGY STATUS TO OTHER ANTIBIOTIC AGENTS SNOMED Code(s): 390287971 (4) Left leg cellulitis Current Visit: No Status: Acute Code(s): L03.116 - CELLULITIS OF LEFT LOWER LIMB SNOMED Code(s): 49455023148851740 Plan: 1-Patient with a chronic wound to the left lower extremity now presented to hospital with worsening pain swelling redness and drainage concerning for infection in this patient who has grown multiple different pathogen in the past last culture has been VRE Streptococcus agalactiae and MRSA 2-patient with multiple antibiotic ALLERGIES that would limit the number of antibiotic safe to use 3-local culture growing Proteus Pseudomonas, VRE and MRSA 4-patient did have significant diarrhea stool for C. difficile is negative and also have significant abdominal distention and abnormal x-ray radiology CT abdominal pelvis completed did not mention any colitis some evidence of gastroenteritis questionable ileus patient and nursing staff mention improvement her symptoms 5-patient to continue the daptomycin along with meropenem, patient did get a PICC line plan for at least 4 to 6 weeks of IV antibiotic on discharge Dictation was produced using [employer] dictation software. please excuse any grammatical, word or spelling errors. Time with Patient: Less than 30
--- NOTE | 2023-11-07 16:10 | P.PN ---
Subjective Progress Note Date: 11/07/23 76-year-old female with PMH of CAD, chronic diastolic heart failure, hypertension, hyperlipidemia, type II [id number] diabetes mellitus, chronic kidney disease stage IIIb, history of DVTs on Eliquis and peripheral vascular deficiency with chronic venous stasis and diabetic ulcers status postsurgical debridement with history of MRSA and VRE. She presented to the emergency department with complaints of worsening left lower extremity ulcerations despite outpatient care and weekly visits from wound care nurse. She underwent evaluation in the emergency department. Vital signs upon arrival show blood pressure 132/53, heart rate 64, respiratory rate 18, temp 97.3 F, and SpO2 100% on room air. Labs were completed and reviewed. CBC showing leukocytosis with WBC count of 13.3 and microchromic anemia with hemoglobin of 10.6 and MCH of 24.6. BMP revealing mild metabolic acidosis with chloride of 119, bicarb 17, anion gap 6, and renal function consistent with stage IIIb chronic kidney disease with BUN of 33, creatinine 1.28, and GFR of 38. Blood glucose was 82. Lactate was 1.1. Calcium was 5.8 with albumin of 1.9 showing corrected calcium of 7.9. Liver profile showing elevated alkaline phosphatase of 140. X-ray left tib-fib showing osseous structures remained demineralized with no new suspicious bony destruction to suggest acute osteomyelitis per radiology report when compared to previous imaging completed 08/30/2021. Patient was started on IV antibiotics and admitted under our services with consultation to infectious disease. Blood cultures and wound culture was sent to lab for analysis. Wound culture ulcer left leg positive for Proteus mirabillis, Pseudomonas aeruginosa, and MRSA. Wound culture left heel ulcer positive for Proteus mirabillis, Enterococcus faecalis VRE, and Pseudomonas aeruginosa. Blood cultures x 2 showing no growth to date. Patient remains on IV antibiotics. She needs to have PICC line placed and plans to be discharged home with home care as she has declined SNF placement. Discharge pending PICC line placement, PICC line not able to be placed until . 11/03 Patient was seen and examined. Reports multiple episodes of diarrhea and sore bottom. No other complaints. BMP Cl 111, BUN 35.8, glu 126, Va 7.8. Mag 2.5. 11/04 Patient was seen and examined. No diarrhea today. Reports abdominal bloating. Some nausea but no vomiting. Passing gas. KUB done shows dilated loops of bowel concerning for SBO. CT AP has been ordered to further evaluate. Patient placed NPO and surgery consulted. 11/05 Patient was seen and examined. Multiple episodes of diarrhea today. CT AP shows gastroenteritis with concerns for ileus. CBC Hg 10.4, Hct 36.6. CMP Cl 110, BUN 44.2, Cr 1.6, glu 115, Ca 7.6, T. Bili < 0.2, AST 11, ALT 7, alk phos 160, alb 2.7. CRP 3.9. 11/06 Patient was seen and examined. 4 episodes of diarrhea since yesterday. After much discussion with the patient, she is agreeable for SNF. PICC line successfully inserted today. INR 1.2. BMP K 3.4, Cl 116, bicarb 17, BUN 46, Cr 1.31, glu 107, Ca 7.3. General: no distress, appears at stated age Derm: warm, dry Head: atraumatic, normocephalic, symmetric Eyes: EOMI, no lid lag, anicteric sclera Mouth: no lip lesion, mucus membranes moist Cardiovascular: S1S2 , no murmur Lungs: Decreased BS bilateral, no rhonchi, no rales , no accessory muscle use Abdominal: distended, nontender to palpation, + hudson Ext: Bilateral lower extremities with moderate swelling and scaling of skin appearing chronic, however left lower extremity with stage II pressure ulcer to heal with multiple stage II ulcers to the left calf with surrounding erythema and drainage. Neuro: No focal neurologic deficits Psych: Alert and oriented Based on my assessment of this patient, this patient meets a high complexity level of care. Patient has an acute diagnosis of bilateral lower extremity cellulitis complicated by possible SBO that poses a threat to life or bodily function. 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 Wound cultures positive for VRE, Pseudomonas aeruginosa, Proteus mirabillis, and MRSA. Diarrhea Acute kidney injury Diabetes mellitus with hyperglycemia Hypocalcemia History of CAD Chronic diastolic heart failure Hypertension Hyperlipidemia History of DVT Obtained PICC line today. Meropenem should provide gram negative and anerobic coverage. Continue Daptomycin and Meropenem for polymicrobial infected LLE ulcer. Add Imodium PRN for diarrhea. Surgery note reviewed, advance diet to FLD and carb consistent if tolerating. Plans for SNF on discharge CODE STATUS: FULL CODE. DVT Prophylaxis: Eliquis GI Prophylaxis: Pepcid Designated medical POA if patient is not able to make medical decisions for themselves: I have reviewed the following insolvency consultant notes: ID, Nephrology, Surgery I have reviewed the results of the following tests: BMP, Coag panel I have ordered the following tests: I have discussed the care of this patient with the following independent historian: RN. I have independently interpreted the following test below: I have discussed the management of this patient with the following physician: Objective - Vital Signs Vital signs: Vital Signs Temp 97.5 F L 11/07/23 13:13 Pulse 57 L 11/07/23 13:13 Resp 16 11/07/23 13:13 BP 112/57 11/07/23 13:13 Pulse Ox 100 11/07/23 13:13 FiO2 Intake & Output 11/06/23 11/07/23 11/07/23 18:59 06:59 18:59 Intake Total 120 Output Total 460 300 Balance -460 -300 120 Intake: Oral 120 Output: Urine 460 300 Other: Voiding Method Indwelling Catheter Indwelling Catheter # Voids 1 # Bowel Movements 1 2 1 - Labs CBC & Chem 7: 11/06/23 06:04 11/07/23 07:13 Labs: Abnormal Lab Results - Last 24 Hours (Table) 11/06/23 11/06/23 11/07/23 Range/Units 17:36 20:22 07:13 INR 1.2 H (<1.2) Potassium (3.5-5.1) mmol/L Chloride (98-107) mmol/L Carbon Dioxide (22-30) mmol/L BUN (7-17) mg/dL Creatinine (0.52-1.04) mg/dL Glucose (74-99) mg/dL POC Glucose (mg/dL) 112 H 178 H (70-110) mg/dL Calcium (8.4-10.2) mg/dL 11/07/23 11/07/23 Range/Units 07:13 11:30 INR (<1.2) Potassium 3.4 L (3.5-5.1) mmol/L Chloride 116 H (98-107) mmol/L Carbon Dioxide 17 L (22-30) mmol/L BUN 46 H (7-17) mg/dL Creatinine 1.31 H (0.52-1.04) mg/dL Glucose 107 H (74-99) mg/dL POC Glucose (mg/dL) 207 H (70-110) mg/dL Calcium 7.3 L (8.4-10.2) mg/dL
[2023-11-07 17:26] LABS: Glucose,Whole Blood 125 mg/dL (70-110)
--- NOTE | 2023-11-07 18:24 | P.PN ---
Subjective patient is seen for follow-up for acute kidney injury. Renal function has improved with IV hydration. serum creatinine decreased to 1.5 mg/dL from peak of 1.9. Blood pressure remains on the lower side but improved. Serum creatinine improved to 1.3 today. Still complaining of abdominal distention. Objective - Vital Signs Vital signs: Vital Signs Temp 97.5 F L 11/07/23 13:13 Pulse 57 L 11/07/23 13:13 Resp 16 11/07/23 13:13 BP 112/57 11/07/23 13:13 Pulse Ox 100 11/07/23 13:13 FiO2 Intake & Output 11/06/23 11/07/23 11/07/23 18:59 06:59 18:59 Intake Total 360 Output Total 460 300 400 Balance -460 -300 -40 Intake: Oral 360 Output: Urine 460 300 400 Other: Voiding Method Indwelling Catheter Indwelling Catheter # Voids 1 # Bowel Movements 1 2 1 - Exam patient is awake, comfortable, no acute distress Examination of the heart S1 and S2 Examination of the lungs bilateral breath sounds are heard Abdomen is distended, nontender Examination of lower extremities shows trace edema - Labs CBC & Chem 7: 11/06/23 06:04 11/07/23 07:13 Labs: Abnormal Lab Results - Last 24 Hours (Table) 11/06/23 11/07/23 11/07/23 Range/Units 20:22 07:13 07:13 INR 1.2 H (<1.2) Potassium 3.4 L (3.5-5.1) mmol/L Chloride 116 H (98-107) mmol/L Carbon Dioxide 17 L (22-30) mmol/L BUN 46 H (7-17) mg/dL Creatinine 1.31 H (0.52-1.04) mg/dL Glucose 107 H (74-99) mg/dL POC Glucose (mg/dL) 178 H (70-110) mg/dL Calcium 7.3 L (8.4-10.2) mg/dL 11/07/23 11/07/23 Range/Units 11:30 17:19 INR (<1.2) Potassium (3.5-5.1) mmol/L Chloride (98-107) mmol/L Carbon Dioxide (22-30) mmol/L BUN (7-17) mg/dL Creatinine (0.52-1.04) mg/dL Glucose (74-99) mg/dL POC Glucose (mg/dL) 207 H 125 H (70-110) mg/dL Calcium (8.4-10.2) mg/dL Assessment and Plan Assessment: 1. Acute kidney injury secondary to ATN secondary to severe sepsis. Creatinine peaked at 1.9 this admission and is 1.3 today. Antihypertensive medications discontinued. 2. Chronic kidney disease stage IIIb with baseline creatinine 1.3-1.5 secondary to nephrosclerosis and diabetic kidney disease. 3. Left lower extremity wound and cellulitis on IV antibiotics. 4. Diabetes mellitus. 5. Hypertension with chronic kidney disease. Controlled. 6. Possible partial bowel obstruction Plan: continue with IV fluids. Repeat labs in a.m. Continue to avoid nephrotoxic agents.
[2023-11-07 20:47] LABS: Glucose,Whole Blood 185 mg/dL (70-110)
--- NOTE | 2023-11-08 06:01 | P.DS ---
Providers Date of admission: 10/30/23 12:08 Expected date of discharge: 11/08/23 Attending physician: Lalo Trinh MD Consults: 10/30/23 03:25 Consult Physician Urgent Consulting Provider: Zaida Rivera Consult Reason/Comments: Wound LLE Do you want consulting provider notified?: Yes 10/30/23 12:18 Consult Physician Routine Consulting Provider: Koby Choe Consult Reason/Comments: LLE ulcerations Do you want consulting provider notified?: Yes 11/02/23 15:26 Consult Physician Urgent Consulting Provider: Roger Mckeon Consult Reason/Comments: low GFRm PICC insertion Do you want consulting provider notified?: Already Contacted 11/05/23 16:07 Consult Physician Urgent Consulting Provider: Dashawn Miller Consult Reason/Comments: Possible small bowel obstruction Do you want consulting provider notified?: Yes Primary care physician: [facility] Course: 76-year-old female with PMH of CAD, chronic diastolic heart failure, hypertension, hyperlipidemia, type II [id number] diabetes mellitus, chronic kidney disease stage IIIb, history of DVTs on Eliquis and peripheral vascular deficiency with chronic venous stasis and diabetic ulcers status postsurgical debridement with history of MRSA and VRE. She presented to the emergency department with complaints of worsening left lower extremity ulcerations despite outpatient care and weekly visits from wound care nurse. She underwent evaluation in the emergency department. Vital signs upon arrival show blood pressure 132/53, heart rate 64, respiratory rate 18, temp 97.3 F, and SpO2 100% on room air. Labs were completed and reviewed. CBC showing leukocytosis with WBC count of 13.3 and microchromic anemia with hemoglobin of 10.6 and MCH of 24.6. BMP revealing mild metabolic acidosis with chloride of 119, bicarb 17, anion gap 6, and renal function consistent with stage IIIb chronic kidney disease with BUN of 33, creatinine 1.28, and GFR of 38. Blood glucose was 82. Lactate was 1.1. Calcium was 5.8 with albumin of 1.9 showing corrected calcium of 7.9. Liver profile showing elevated alkaline phosphatase of 140. X-ray left tib-fib showing osseous structures remained demineralized with no new suspicious bony destruction to suggest acute osteomyelitis per radiology report when compared to previous imaging completed 08/30/2021. Patient was started on IV antibiotics and admitted under our services with consultation to infectious disease. Blood cultures and wound culture was sent to lab for analysis. Wound culture ulcer left leg positive for Proteus mirabillis, Pseudomonas aeruginosa, and MRSA. Wound culture left heel ulcer positive for Proteus mirabillis, Enterococcus faecalis VRE, and Pseudomonas aeruginosa. Blood cultures x 2 showing no growth to date. Patient remains on IV antibiotics. She needs to have PICC line placed and plans to be discharged home with home care as she has declined SNF placement. Discharge pending PICC line placement, PICC line placed on 11/06. She did have some episodes of diarrhea with abdominal bloating. CT AP shows gastroenteritis with concerns for ileus. C. difficile negative. Surgery consulted, patient having bowel movements, diet advanced, treated conservatively. 11/03 Reports multiple episodes of diarrhea and sore bottom. 11/04 No diarrhea today. Reports abdominal bloating. Some nausea but no vomiting. Passing gas. KUB done shows dilated loops of bowel concerning for SBO. CT AP has been ordered to further evaluate. Patient placed NPO and surgery consulted. 11/05 Multiple episodes of diarrhea today. CT AP shows gastroenteritis with concerns for ileus. Surgery consulted, recommends conservative management, diet advanced. 11/06 4 episodes of diarrhea since yesterday. After much discussion with the patient, she is agreeable for SNF. PICC line successfully inserted today. 11/07 Patient was seen and examined. 3 episodes of diarrhea since yesterday. Patient agreeable for SNF. Dr. Rivera recommends 4-6 weeks of IV antibiotics. BMP pending today. Plans for discharge to SNF once arranged by case management. General: no distress, appears at stated age Derm: warm, dry Head: atraumatic, normocephalic, symmetric Eyes: EOMI, no lid lag, anicteric sclera Mouth: no lip lesion, mucus membranes moist Cardiovascular: S1S2 , no murmur Lungs: Decreased BS bilateral, no rhonchi, no rales , no accessory muscle use Abdominal: distended, nontender to palpation, + hudson Ext: Bilateral lower extremities with moderate swelling and scaling of skin appearing chronic, however left lower extremity with stage II pressure ulcer to heal with multiple stage II ulcers to the left calf with surrounding erythema and drainage. Neuro: No focal neurologic deficits Psych: Alert and oriented Discharge Diagnosis: Abdominal distention, gastroenteritis vs ileus Polymicrobial resistant infection of left lower extremity ulcers. Wound cultures positive for VRE, Pseudomonas aeruginosa, Proteus mirabillis, and MRSA. Diarrhea Acute kidney injury Diabetes mellitus with hyperglycemia Hypokalemia Hypocalcemia History of CAD Chronic diastolic heart failure Hypertension Hyperlipidemia History of DVT This complex discharge took 35 minutes to complete. Patient Condition at Discharge: Stable Plan - Discharge Summary Discharge Rx Participant: No New Discharge Prescriptions: New Loperamide [Imodium] 2 mg PO QID PRN cap PRN Reason: Diarrhea Meropenem [Merrem] 1 gm IVPB Q8HR each DAPTOmycin [Cubicin] 500 mg IVPB Q48H each Continue Atorvastatin [Lipitor] 20 mg PO HS Metoprolol Succinate (ER) [Toprol XL] 25 mg PO DAILY Buprenorphine [Butrans 5 MCG/HR] 1 patch TRANSDERM SA #1 patch Gabapentin [Neurontin] 100 mg PO TID #9 cap Empagliflozin [Jardiance] 10 mg PO DAILY Apixaban [Eliquis] 5 mg PO BID amLODIPine [Norvasc] 5 mg PO DAILY Glimepiride [Amaryl] 1 mg PO DAILY Famotidine [Pepcid] 20 mg PO DAILY Changed HYDROcodone/APAP 10-325MG [Schofield 10-325] 1 tab PO Q4HR PRN #18 tab PRN Reason: Pain Discontinued Torsemide [Demadex] 20 mg PO DAILY Spironolactone [Aldactone] 25 mg PO DAILY hydrALAZINE HCL [Apresoline] 25 mg PO TID Doxycycline Hyclate 100 mg PO BID Discharge Medication List Atorvastatin [Lipitor] 20 mg PO HS 08/27/21 [History] Empagliflozin [Jardiance] 10 mg PO DAILY 03/20/23 [History] Metoprolol Succinate (ER) [Toprol XL] 25 mg PO DAILY 03/20/23 [History] Apixaban [Eliquis] 5 mg PO BID 04/17/23 [History] Famotidine [Pepcid] 20 mg PO DAILY 10/30/23 [History] Glimepiride [Amaryl] 1 mg PO DAILY 10/30/23 [History] amLODIPine [Norvasc] 5 mg PO DAILY 10/30/23 [History] Buprenorphine [Butrans 5 MCG/HR] 1 patch TRANSDERM SA #1 patch 11/08/23 [Rx] DAPTOmycin [Cubicin] 500 mg IVPB Q48H each 11/08/23 [Rx] Gabapentin [Neurontin] 100 mg PO TID #9 cap 11/08/23 [Rx] HYDROcodone/APAP 10-325MG [Schofield 10-325] 1 tab PO Q4HR PRN #18 tab 11/08/23 [Rx] Loperamide [Imodium] 2 mg PO QID PRN cap 11/08/23 [Rx] Meropenem [Merrem] 1 gm IVPB Q8HR each 11/08/23 [Rx] Follow up Appointment(s)/Referral(s): Alexx Olmstead MD [Primary Care Provider] - 1-2 days [facility] [REFERRING] - As Needed (Call to inquire about applying for Medicaid and possible chore services. ) Zaida Rivera MD [STAFF PHYSICIAN] - 1 Week Sophia Bernal MD [STAFF PHYSICIAN] - 1 Week Activity/Diet/Wound Care/Special Instructions: Diet: Diabetic, low salt Discharge Disposition: TRANSFER TO SNF/ECF
[2023-11-08 06:28] LABS: Glucose,Whole Blood 117 mg/dL (70-110)
[2023-11-08 06:58] LABS: African American GFR (CKD) 33 (>60 ml/min/1.73 sqM); Anion Gap 6 mmol/L; Blood Urea Nitrogen 47 mg/dL (7-17); Calcium 7.2 mg/dL (8.4-10.2); Carbon Dioxide 18 mmol/L (22-30); Chloride 116 mmol/L (98-107); Glucose 108 mg/dL (74-99); Non-African American GFR(CKD) 29 (>60 ml/min/1.73 sqM); Potassium 3.5 mmol/L (3.5-5.1); Sodium 140 mmol/L (137-145)
[2023-11-08 12:14] LABS: Glucose,Whole Blood 166 mg/dL (70-110)
--- NOTE | 2023-11-08 14:38 | P.PN ---
Subjective patient is seen for follow-up for acute kidney injury. Renal function has improved with IV hydration. serum creatinine decreased to 1.3 mg/dL and is up to 1.6 today Blood pressure remains on the lower side but improved. Patient has an indwelling Craven catheter. Objective - Vital Signs Vital signs: Vital Signs Temp 97.6 F 11/08/23 13:13 Pulse 64 11/08/23 13:13 Resp 17 11/08/23 13:13 BP 128/61 11/08/23 13:13 Pulse Ox 100 11/08/23 13:13 FiO2 Intake & Output 11/07/23 11/08/23 11/08/23 18:59 06:59 18:59 Intake Total 600 240 Output Total 400 Balance 200 240 Weight 99.79 kg Intake: Oral 600 240 Output: Urine 400 Other: Voiding Method Indwelling Catheter # Voids 2 # Bowel Movements 1 - Exam patient is awake, comfortable, no acute distress Examination of the heart S1 and S2 Examination of the lungs bilateral breath sounds are heard Abdomen is distended, nontender Examination of lower extremities shows trace edema - Labs CBC & Chem 7: 11/06/23 06:04 11/08/23 05:45 Labs: Abnormal Lab Results - Last 24 Hours (Table) 11/07/23 11/07/23 11/08/23 Range/Units 17:19 20:46 05:45 Chloride 116 H (98-107) mmol/L Carbon Dioxide 18 L (22-30) mmol/L BUN 47 H (7-17) mg/dL Creatinine 1.62 H (0.52-1.04) mg/dL Glucose 108 H (74-99) mg/dL POC Glucose (mg/dL) 125 H 185 H (70-110) mg/dL Calcium 7.2 L (8.4-10.2) mg/dL 11/08/23 11/08/23 Range/Units 06:26 12:09 Chloride (98-107) mmol/L Carbon Dioxide (22-30) mmol/L BUN (7-17) mg/dL Creatinine (0.52-1.04) mg/dL Glucose (74-99) mg/dL POC Glucose (mg/dL) 117 H 166 H (70-110) mg/dL Calcium (8.4-10.2) mg/dL Assessment and Plan Assessment: 1. Acute kidney injury secondary to ATN secondary to severe sepsis. Creatinine peaked at 1.9 this admission and is 1.3 , it is 1.6 today. Antihypertensive medications discontinued. 2. Chronic kidney disease stage IIIb with baseline creatinine 1.3-1.5 secondary to nephrosclerosis and diabetic kidney disease. 3. Left lower extremity wound and cellulitis on IV antibiotics. 4. Diabetes mellitus. 5. Hypertension with chronic kidney disease. Controlled. 6. Possible partial bowel obstruction 7. Metabolic acidosis associated with acute kidney injury and diabetic kidney disease Plan: continue with IV fluids. SHANIKA Mendez Add oral sodium bicarb Repeat labs in a.m. Continue to avoid nephrotoxic agents.
--- NOTE | 2023-11-08 15:44 | P.PN ---
Subjective Progress Note Date: 11/08/23 CHIEF COMPLAINT: Ileus HISTORY OF PRESENT ILLNESS: Surgical service is following in regards to patient's abdominal ileus. She reports no abdominal pain. Patient reports no bowel movement today. She did have some diarrhea yesterday. She is having flatus. Denies any nausea or vomiting. Tolerated regular diet. Afebrile. PHYSICAL EXAM: VITAL SIGNS: Reviewed. GENERAL: no acute distress. ABDOMEN: Soft. Distended. Nontender NEUROLOGIC: Alert and oriented. Cranial nerves II through XII grossly intact. ASSESSMENT: 1. Ileus 2. Hypokalemia 3. Left leg wound and cellulitis on antibiotics per ID service PLAN: -Continue regular diet -No surgical intervention planned -Continue supportive care -Encourage patient to increase activity level Physician Beveller Operator note has been reviewed by physician. Signing provider agrees with the documented findings, assessment, and plan of care. Objective - Vital Signs Vital signs: Vital Signs Temp 97.6 F 11/08/23 13:13 Pulse 64 11/08/23 13:13 Resp 17 11/08/23 13:13 BP 128/61 11/08/23 13:13 Pulse Ox 100 11/08/23 13:13 FiO2 Intake & Output 11/07/23 11/08/23 11/08/23 18:59 06:59 18:59 Intake Total 600 240 Output Total 400 Balance 200 240 Weight 99.79 kg Intake: Oral 600 240 Output: Urine 400 Other: Voiding Method Indwelling Catheter # Voids 2 # Bowel Movements 1 - Labs CBC & Chem 7: 11/06/23 06:04 11/08/23 05:45 Labs: Abnormal Lab Results - Last 24 Hours (Table) 11/07/23 11/07/23 11/08/23 Range/Units 17:19 20:46 05:45 Chloride 116 H (98-107) mmol/L Carbon Dioxide 18 L (22-30) mmol/L BUN 47 H (7-17) mg/dL Creatinine 1.62 H (0.52-1.04) mg/dL Glucose 108 H (74-99) mg/dL POC Glucose (mg/dL) 125 H 185 H (70-110) mg/dL Calcium 7.2 L (8.4-10.2) mg/dL 11/08/23 11/08/23 Range/Units 06:26 12:09 Chloride (98-107) mmol/L Carbon Dioxide (22-30) mmol/L BUN (7-17) mg/dL Creatinine (0.52-1.04) mg/dL Glucose (74-99) mg/dL POC Glucose (mg/dL) 117 H 166 H (70-110) mg/dL Calcium (8.4-10.2) mg/dL
[2023-11-08 17:28] LABS: Glucose,Whole Blood 163 mg/dL (70-110)
--- NOTE | 2023-11-08 17:29 | P.PN ---
Subjective Progress Note Date: 11/08/23 Principal diagnosis: Reason for follow-up is left lower extremity wound and cellulitis Patient is a 83-year-old female with a past medical history significant for diabetes mellitus hypertension hyperlipidemia renal disorder the patient also have a history of chronic left lower extremity venous stasis ulcer and multiple episodes of cellulitis, presented to hospital with worsening wound to the left lower extremity concerning for infected wound and cellulitis. On today's visit that is 11/08/2023, patient has been afebrile, patient is breathing comfortably and is currently on room air, patient denies having any significant cough no chest pain shortness of breath, patient denies nausea vomiting still complaining of some diarrhea but slowed down per the nursing st aff or any worsening pain to the heel. Patient creatinine is 1.62 Objective - Vital Signs Vital signs: Vital Signs Temp 98.2 F 11/08/23 07:49 Pulse 66 11/08/23 07:49 Resp 17 11/08/23 07:49 BP 110/52 11/08/23 07:49 Pulse Ox 96 11/08/23 07:49 FiO2 Intake & Output 11/07/23 11/08/23 11/08/23 18:59 06:59 18:59 Intake Total 600 Output Total 400 Balance 200 Weight 99.79 kg Intake: Oral 600 Output: Urine 400 Other: Voiding Method Indwelling Catheter # Voids 2 # Bowel Movements 1 - Exam GENERAL DESCRIPTION: An elderly female lying in bed in no distress RESPIRATORY SYSTEM: Unlabored breathing , decreased breath sounds at bases HEART: S1 S2 regular rate and rhythm , ABDOMEN: Soft , distention EXTREMITIES: Left heel wound is currently dressed no drainage on the dressing - Labs CBC & Chem 7: 11/06/23 06:04 11/08/23 05:45 Labs: Abnormal Lab Results - Last 24 Hours (Table) 11/07/23 11/07/23 11/07/23 Range/Units 07:13 11:30 17:19 Potassium 3.4 L (3.5-5.1) mmol/L Chloride 116 H (98-107) mmol/L Carbon Dioxide 17 L (22-30) mmol/L BUN 46 H (7-17) mg/dL Creatinine 1.31 H (0.52-1.04) mg/dL Glucose 107 H (74-99) mg/dL POC Glucose (mg/dL) 207 H 125 H (70-110) mg/dL Calcium 7.3 L (8.4-10.2) mg/dL 11/07/23 11/08/23 11/08/23 Range/Units 20:46 05:45 06:26 Potassium (3.5-5.1) mmol/L Chloride 116 H (98-107) mmol/L Carbon Dioxide 18 L (22-30) mmol/L BUN 47 H (7-17) mg/dL Creatinine 1.62 H (0.52-1.04) mg/dL Glucose 108 H (74-99) mg/dL POC Glucose (mg/dL) 185 H 117 H (70-110) mg/dL Calcium 7.2 L (8.4-10.2) mg/dL Assessment and Plan (1) Type 2 diabetes mellitus with other skin ulcer Current Visit: Yes Status: Acute Code(s): E11.622 - TYPE 2 DIABETES MELLITUS WITH OTHER SKIN ULCER; L98.499 - NON-PRESSURE CHRONIC ULCER OF SKIN OF SITES W UNSP SEVERITY SNOMED Code(s): 904766517 (2) Wound of left leg Current Visit: Yes Status: Acute Code(s): S81.802A - UNSPECIFIED OPEN WOUND, LEFT LOWER LEG, INITIAL ENCOUNTER SNOMED Code(s): 74612092592898942 (3) Allergy to multiple antibiotics Current Visit: No Status: Acute Code(s): Z88.1 - ALLERGY STATUS TO OTHER ANTIBIOTIC AGENTS SNOMED Code(s): 094592351 (4) Left leg cellulitis Current Visit: No Status: Acute Code(s): L03.116 - CELLULITIS OF LEFT LOWER LIMB SNOMED Code(s): 80305439581700299 Plan: 1-Patient with a chronic wound to the left lower extremity now presented to hospital with worsening pain swelling redness and drainage concerning for infection in this patient who has grown multiple different pathogen in the past last culture has been VRE Streptococcus agalactiae and MRSA 2-patient with multiple antibiotic ALLERGIES that would limit the number of antibiotic safe to use 3-local culture growing Proteus Pseudomonas, VRE and MRSA 4-patient did have significant diarrhea stool for C. difficile is negative and also have significant abdominal distention and abnormal x-ray radiology CT abdominal pelvis completed did not mention any colitis some evidence of gastroenteritis questionable ileus patient and nursing staff mention improvement her symptoms 5-patient did get the PICC line, plan is to continue the daptomycin along with meropenem x 4 to 6 weeks on discharge, and weekly monitoring of CRP and sed rate and close outpatient follow-up Dictation was produced using [employer] dictation software. please excuse any grammatical, word or spelling errors. Time with Patient: Less than 30
[2023-11-08 22:31] LABS: Glucose,Whole Blood 167 mg/dL (70-110)
[2023-11-09 03:11] VITALS: RESP 16
[2023-11-09 06:09] LABS: Glucose,Whole Blood 110 mg/dL (70-110)
[2023-11-09 07:36] VITALS: BP 106/52; PULSE 60; TEMP 98.1
--- NOTE | 2023-11-09 11:40 | P.DS ---
Providers Date of admission: 10/30/23 12:08 Expected date of discharge: 11/09/23 Attending physician: Lalo Trinh MD Consults: 10/30/23 03:25 Consult Physician Urgent Consulting Provider: Zaida Rivera Consult Reason/Comments: Wound LLE Do you want consulting provider notified?: Yes 10/30/23 12:18 Consult Physician Routine Consulting Provider: Koby Choe Consult Reason/Comments: LLE ulcerations Do you want consulting provider notified?: Yes 11/02/23 15:26 Consult Physician Urgent Consulting Provider: Roger Mckeon Consult Reason/Comments: low GFRm PICC insertion Do you want consulting provider notified?: Already Contacted 11/05/23 16:07 Consult Physician Urgent Consulting Provider: Dashawn Miller Consult Reason/Comments: Possible small bowel obstruction Do you want consulting provider notified?: Yes Primary care physician: [facility] Course: 76-year-old female with PMH of CAD, chronic diastolic heart failure, hypertension, hyperlipidemia, type II [id number]-[id number] diabetes mellitus, chronic kidney disease stage IIIb, history of DVTs on Eliquis and peripheral vascular deficiency with chronic venous stasis and diabetic ulcers status postsurgical debridement with history of MRSA and VRE. She presented to the emergency department with complaints of worsening left lower extremity ulcerations despite outpatient care and weekly visits from wound care nurse. She underwent evaluation in the emergency department. Vital signs upon arrival show blood pressure 132/53, heart rate 64, respiratory rate 18, temp 97.3 F, and SpO2 100% on room air. Labs were completed and reviewed. CBC showing leukocytosis with WBC count of 13.3 and microchromic anemia with hemoglobin of 10.6 and MCH of 24.6. BMP revealing mild metabolic acidosis with chloride of 119, bicarb 17, anion gap 6, and renal function consistent with stage IIIb chronic kidney disease with BUN of 33, creatinine 1.28, and GFR of 38. Blood glucose was 82. Lactate was 1.1. Calcium was 5.8 with albumin of 1.9 showing corrected calcium of 7.9. Liver profile showing elevated alkaline phosphatase of 140. X-ray left tib-fib showing osseous structures remained demineralized with no new suspicious bony destruction to suggest acute osteomyelitis per radiology report when compared to previous imaging completed 08/30/2021. Patient was started on IV antibiotics and admitted under our services with consultation to infectious disease. Blood cultures and wound culture was sent to lab for analysis. Wound culture ulcer left leg positive for Proteus mirabillis, Pseudomonas aeruginosa, and MRSA. Wound culture left heel ulcer positive for Proteus mirabillis, Enterococcus faecalis VRE, and Pseudomonas aeruginosa. Blood cultures x 2 showing no growth to date. Patient remains on IV antibiotics. She needs to have PICC line placed and plans to be discharged home with home care as she has declined SNF placement. Discharge pending PICC line placement, PICC line placed on 11/06. She did have some episodes of diarrhea with abdominal bloating. CT AP shows gastroenteritis with concerns for ileus. C. difficile negative. Surgery consulted, patient having bowel movements, diet advanced, treated conservatively. 11/03 Reports multiple episodes of diarrhea and sore bottom. 11/04 No diarrhea today. Reports abdominal bloating. Some nausea but no vomiting. Passing gas. KUB done shows dilated loops of bowel concerning for SBO. CT AP has been ordered to further evaluate. Patient placed NPO and surgery consulted. 11/05 Multiple episodes of diarrhea today. CT AP shows gastroenteritis with concerns for ileus. Surgery consulted, recommends conservative management, diet advanced. 11/06 4 episodes of diarrhea since yesterday. After much discussion with the patient, she is agreeable for SNF. PICC line successfully inserted today. 11/07 Patient was seen and examined. 3 episodes of diarrhea since yesterday. Patient agreeable for SNF. Dr. Rivera recommends 4-6 weeks of IV antibiotics. BMP pending today. Plans for discharge to SNF once arranged by case management. 11/08 patient was seen and examined. Has no new complaints today. Insurance authorization approved for rehab, will discharge today. Gen: In NAD, non-toxic HEENT: normocephalic, atraumatic, hearing acuity is intant, mucous membranes moist CVS: perfusing all extremities well, no pitting edema, Respiratory: symmetric chest expansion, no accessory muscle use, GI: soft, NTTP, ND, : no suprapubic tenderness, no CVA tenderness MSK/Derm: no rashes, cyanosis Neuro: CN II-XII intact, no motor weakness, Psych: cooperative, euthymic mood, judgment and insight is intact Discharge Diagnosis: Abdominal distention, gastroenteritis vs ileus Polymicrobial resistant infection of left lower extremity ulcers. Wound cultures positive for VRE, Pseudomonas aeruginosa, Proteus mirabillis, and MRSA. Diarrhea Acute kidney injury Diabetes mellitus with hyperglycemia Hypokalemia Hypocalcemia History of CAD Chronic diastolic heart failure Hypertension Hyperlipidemia History of DVT This complex discharge took 35 minutes to complete. Patient Condition at Discharge: Good Plan - Discharge Summary Discharge Rx Participant: No New Discharge Prescriptions: New Loperamide [Imodium] 2 mg PO QID PRN cap PRN Reason: Diarrhea Meropenem [Merrem] 1 gm IVPB Q8H #84 each DAPTOmycin [Cubicin] 1 mg IV DAILY #28 each Continue Atorvastatin [Lipitor] 20 mg PO HS Metoprolol Succinate (ER) [Toprol XL] 25 mg PO DAILY Buprenorphine [Butrans 5 MCG/HR] 1 patch TRANSDERM SA #1 patch Gabapentin [Neurontin] 100 mg PO TID #9 cap Empagliflozin [Jardiance] 10 mg PO DAILY Apixaban [Eliquis] 5 mg PO BID amLODIPine [Norvasc] 5 mg PO DAILY Glimepiride [Amaryl] 1 mg PO DAILY Famotidine [Pepcid] 20 mg PO DAILY Changed HYDROcodone/APAP 10-325MG [[place]cox 10-325] 1 tab PO Q4HR PRN #18 tab PRN Reason: Pain Discontinued Torsemide [Demadex] 20 mg PO DAILY Spironolactone [Aldactone] 25 mg PO DAILY hydrALAZINE HCL [Apresoline] 25 mg PO TID Doxycycline Hyclate 100 mg PO BID Discharge Medication List Atorvastatin [Lipitor] 20 mg PO HS 08/27/21 [History] Empagliflozin [Jardiance] 10 mg PO DAILY 03/20/23 [History] Metoprolol Succinate (ER) [Toprol XL] 25 mg PO DAILY 03/20/23 [History] Apixaban [Eliquis] 5 mg PO BID 04/17/23 [History] Famotidine [Pepcid] 20 mg PO DAILY 10/30/23 [History] Glimepiride [Amaryl] 1 mg PO DAILY 10/30/23 [History] amLODIPine [Norvasc] 5 mg PO DAILY 10/30/23 [History] Buprenorphine [Butrans 5 MCG/HR] 1 patch TRANSDERM SA #1 patch 11/08/23 [Rx] DAPTOmycin [Cubicin] 1 mg IV DAILY #28 each 11/08/23 [Rx] Gabapentin [Neurontin] 100 mg PO TID #9 cap 11/08/23 [Rx] HYDROcodone/APAP 10-325MG [[place]cox 10-325] 1 tab PO Q4HR PRN #18 tab 11/08/23 [Rx] Loperamide [Imodium] 2 mg PO QID PRN cap 11/08/23 [Rx] Meropenem [Merrem] 1 gm IVPB Q8H #84 each 11/08/23 [Rx] Follow up Appointment(s)/Referral(s): Alexx Olmstead MD [Primary Care Provider] - 1-2 days Sophia Bernal MD [STAFF PHYSICIAN] - 1 Week [facility] [REFERRING] - As Needed (Call to inquire about applying for Medicaid and possible chore services. ) Zaida Rivera MD [STAFF PHYSICIAN] - 1 Week Ambulatory/Diagnostic Orders: Basic Metabolic Panel [LAB.AMB] Location: None Selected C Reactive Protein [LAB.AMB] Location: None Selected Complete Blood Count w/diff [LAB.AMB] Location: None Selected Erythrocyte Sedimentation Rate [LAB.AMB] Location: None Selected Activity/Diet/Wound Care/Special Instructions: Diet: Diabetic, low salt Discharge Disposition: TRANSFER TO SNF/ECF
--- NOTE | 2023-11-09 13:11 | P.PN ---
Subjective patient is seen for follow-up for acute kidney injury. Renal function had improved with IV hydration. serum creatinine decreased to 1.3 mg/dL and is up to 1.6 yesterday Blood pressure remains on the lower side but improved. Patient has an indwelling [place] catheter. Objective - Vital Signs Vital signs: Vital Signs Temp 98.1 F 11/09/23 07:27 Pulse 60 11/09/23 07:27 Resp 16 11/09/23 07:27 BP 106/52 11/09/23 07:27 Pulse Ox 96 11/09/23 07:27 FiO2 Intake & Output 11/08/23 11/09/23 11/09/23 18:59 06:59 18:59 Intake Total 1260 240 Output Total 500 350 240 Balance 760 -350 0 Weight 99.79 kg Intake: Oral 1260 240 Output: Urine 500 350 240 Other: # Bowel Movements 1 2 - Exam patient is awake, comfortable, no acute distress Examination of the heart S1 and S2 Examination of the lungs bilateral breath sounds are heard Abdomen is distended, nontender Examination of lower extremities shows trace edema - Labs CBC & Chem 7: 11/06/23 06:04 11/08/23 05:45 Labs: Abnormal Lab Results - Last 24 Hours (Table) 11/08/23 11/08/23 Range/Units 17:18 22:30 POC Glucose (mg/dL) 163 H 167 H (70-110) mg/dL Assessment and Plan Assessment: 1. Acute kidney injury secondary to ATN secondary to severe sepsis. Creatinine peaked at 1.9 this admission, decreased to 1.3 , it is 1.6 yesterday. Antihypertensive medications discontinued. 2. Chronic kidney disease stage IIIb with baseline creatinine 1.3-1.5 secondary to nephrosclerosis and diabetic kidney disease. 3. Left lower extremity wound and cellulitis on IV antibiotics. 4. Diabetes mellitus. 5. Hypertension with chronic kidney disease. Controlled. 6. Possible partial bowel obstruction 7. Metabolic acidosis associated with acute kidney injury and diabetic kidney disease Plan: continue off of antihypertensive medications continue oral sodium bicarb Continue to avoid nephrotoxic agents.
--- NOTE | 2023-11-09 15:32 | P.PN ---
Subjective Progress Note Date: 11/09/23 CHIEF COMPLAINT: Ileus HISTORY OF PRESENT ILLNESS: Surgical service is following in regards to patient's abdominal ileus. She reports no abdominal pain. Patient having bowel movements. She is tolerating diet. She is afebrile. She is scheduled for discharge today. PHYSICAL EXAM: VITAL SIGNS: Reviewed. GENERAL: no acute distress. ABDOMEN: Soft. Nondistended nontender NEUROLOGIC: Alert and oriented. Cranial nerves II through XII grossly intact. ASSESSMENT: 1. Ileus 2. Hypokalemia improved 3. Left leg wound and cellulitis on antibiotics per ID service PLAN: -Patient can be discharged from surgical standpoint -Continue regular diet -No surgical intervention planned Physician Office Helper note has been reviewed by physician. Signing provider agrees with the documented findings, assessment, and plan of care. Objective - Vital Signs Vital signs: Vital Signs Temp 98.1 F 11/09/23 07:27 Pulse 60 11/09/23 07:27 Resp 16 11/09/23 07:27 BP 106/52 11/09/23 07:27 Pulse Ox 96 11/09/23 07:27 FiO2 Intake & Output 11/08/23 11/09/23 11/09/23 18:59 06:59 18:59 Intake Total 1260 240 Output Total 500 350 240 Balance 760 -350 0 Weight 99.79 kg Intake: Oral 1260 240 Output: Urine 500 350 240 Other: # Bowel Movements 1 2 - Labs CBC & Chem 7: 11/06/23 06:04 11/08/23 05:45 Labs: Abnormal Lab Results - Last 24 Hours (Table) 11/08/23 11/08/23 Range/Units 17:18 22:30 POC Glucose (mg/dL) 163 H 167 H (70-110) mg/dL
--- NOTE | 2023-11-09 15:46 | P.PN ---
Subjective Progress Note Date: 11/09/23 Principal diagnosis: Reason for follow-up is left lower extremity wound and cellulitis Patient is a 83-year-old female with a past medical history significant for diabetes mellitus hypertension hyperlipidemia renal disorder the patient also have a history of chronic left lower extremity venous stasis ulcer and multiple episodes of cellulitis, presented to hospital with worsening wound to the left lower extremity concerning for infected wound and cellulitis. On today's visit that is 11/09/2023,the patient denies any fever or any chills, patient is breathing comfortably on room air, the patient denies chest pain shortness of breath and no significant cough, patient denies abdominal pain, still complaining of diarrhea however nursing staff mention this only episode she has since morning denies pain to the lower extremity. No new labs has been repeated today Objective - Vital Signs Vital signs: Vital Signs Temp 98.1 F 11/09/23 07:27 Pulse 60 11/09/23 07:27 Resp 16 11/09/23 07:27 BP 106/52 11/09/23 07:27 Pulse Ox 96 11/09/23 07:27 FiO2 Intake & Output 11/08/23 11/09/23 11/09/23 18:59 06:59 18:59 Intake Total 1260 240 Output Total 500 350 240 Balance 760 -350 0 Weight 99.79 kg Intake: Oral 1260 240 Output: Urine 500 350 240 Other: # Bowel Movements 1 2 - Exam GENERAL DESCRIPTION: An elderly female lying in bed in no distress RESPIRATORY SYSTEM: Unlabored breathing , decreased breath sounds at bases HEART: S1 S2 regular rate and rhythm , ABDOMEN: Soft , distention EXTREMITIES: Left heel wound is currently dressed no drainage on the dressing - Labs CBC & Chem 7: 11/06/23 06:04 11/08/23 05:45 Labs: Abnormal Lab Results - Last 24 Hours (Table) 11/08/23 11/08/23 Range/Units 17:18 22:30 POC Glucose (mg/dL) 163 H 167 H (70-110) mg/dL Assessment and Plan (1) Type 2 diabetes mellitus with other skin ulcer Status: Acute Code(s): E11.622 - TYPE 2 DIABETES MELLITUS WITH OTHER SKIN ULCER; L98.499 - NON-PRESSURE CHRONIC ULCER OF SKIN OF SITES W UNSP SEVERITY SNOMED Code(s): 831169848 (2) Wound of left leg Status: Acute Code(s): S81.802A - UNSPECIFIED OPEN WOUND, LEFT LOWER LEG, INITIAL ENCOUNTER SNOMED Code(s): 67576045795182599 (3) Allergy to multiple antibiotics Status: Acute Code(s): Z88.1 - ALLERGY STATUS TO OTHER ANTIBIOTIC AGENTS SNOMED Code(s): 898682903 (4) Left leg cellulitis Status: Acute Code(s): L03.116 - CELLULITIS OF LEFT LOWER LIMB SNOMED Code(s): 31320453022522579 Plan: 1-Patient with a chronic wound to the left lower extremity now presented to hospital with worsening pain swelling redness and drainage concerning for infect ion in this patient who has grown multiple different pathogen in the past last culture has been VRE Streptococcus agalactiae and MRSA 2-patient with multiple antibiotic ALLERGIES that would limit the number of antibiotic safe to use 3-local culture growing Proteus Pseudomonas, VRE and MRSA 4-patient did have significant diarrhea stool for C. difficile is negative and also have significant abdominal distention and abnormal x-ray radiology CT abdominal pelvis completed did not mention any colitis some evidence of gastroenteritis questionable ileus patient and nursing staff mention improvement her symptoms 5-patient did get the PICC line, plan is to continue the daptomycin along with meropenem x 4 weeks on discharge discharge medication has been adjusted follow- up labs has been ordered and close outpatient follow-up Dictation was produced using [employer] dictation software. please excuse any g rammatical, word or spelling errors. Time with Patient: Less than 30
== END 2023-11-09 12:15 | DRG 637 ==
LOC: EC 23:19 → 6NMEDSUR 10-30 05:00 → OBSVTOIN 10-30 12:08 → 6NMEDSUR 10-30 16:27
PROVIDERS: ADMIT Internal Medicine; ATTEND Internal Medicine
PROC: B5181ZA Fluoroscopy of Superior Vena Cava using Low Osmolar Contrast, Guidance (ICD-10-PCS; 2023-11-07)
PROC: B548ZZA Ultrasonography of Superior Vena Cava, Guidance (ICD-10-PCS; 2023-11-07)
PROC: 05H933Z Insertion of Infusion Device into Right Brachial Vein, Percutaneous Approach (ICD-10-PCS; 2023-11-07)
PROC: 02HV33Z Insertion of Infusion Device into Superior Vena Cava, Percutaneous Approach (ICD-10-PCS; principal; 2023-11-07 07:30)
DX: E11.622 Type 2 diabetes mellitus with other skin ulcer (principal); L89.623 Pressure ulcer of left heel, stage 3; L97.225 Non-pressure chronic ulcer of left calf with muscle involvement without evidence of necrosis; I50.32 Chronic diastolic (congestive) heart failure; I13.0 Hypertensive heart and chronic kidney disease with heart failure and stage 1 through stage 4 chronic kidney disease, or unspecified chronic kidney disease; L03.115 Cellulitis of right lower limb; L03.116 Cellulitis of left lower limb; K56.7 Ileus, unspecified; E87.20 Acidosis, unspecified; N17.0 Acute kidney failure with tubular necrosis; D64.9 Anemia, unspecified; Z86.14 Personal history of Methicillin resistant Staphylococcus aureus infection; E11.621 Type 2 diabetes mellitus with foot ulcer; N18.32 Chronic kidney disease, stage 3b; E78.5 Hyperlipidemia, unspecified; L89.622 Pressure ulcer of left heel, stage 2; L97.509 Non-pressure chronic ulcer of other part of unspecified foot with unspecified severity; E83.51 Hypocalcemia; I83.029 Varicose veins of left lower extremity with ulcer of unspecified site; E11.22 Type 2 diabetes mellitus with diabetic chronic kidney disease; E87.6 Hypokalemia; I25.10 Atherosclerotic heart disease of native coronary artery without angina pectoris; Z79.01 Long term (current) use of anticoagulants; I87.8 Other specified disorders of veins; Z79.84 Long term (current) use of oral hypoglycemic drugs; Z79.82 Long term (current) use of aspirin; B96.5 Pseudomonas (aeruginosa) (mallei) (pseudomallei) as the cause of diseases classified elsewhere; B96.4 Proteus (mirabilis) (morganii) as the cause of diseases classified elsewhere; B95.62 Methicillin resistant Staphylococcus aureus infection as the cause of diseases classified elsewhere; Z86.718 Personal history of other venous thrombosis and embolism; Z79.899 Other long term (current) drug therapy; Z87.891 Personal history of nicotine dependence; Z90.710 Acquired absence of both cervix and uterus; Z90.49 Acquired absence of other specified parts of digestive tract; Z88.0 Allergy status to penicillin
CPT/HCPCS: 36415; 36573; 74019; 74176; 76770; 80048; 80053; 83605; 83735; 85025; 85027; 85610; 85652; 86140; 87040; 87070; 87077; 87186; 87205; 87324; 96365; 96366; 96368; 96372; 96375; 96376; 99285

== ENCOUNTER 2024-04-21 09:05 | Inpatient (IN) | payer MEDICARE ==
--- NOTE | 2024-04-21 09:14 | ED ---
General Adult HPI - General Stated complaint: AGAPITO Time Seen by Provider: 04/21/24 09:13 - Related Data Home Medications Medication Instructions Recorded Confirmed Atorvastatin [Lipitor] 20 mg PO HS 08/27/21 10/30/23 Empagliflozin [Jardiance] 10 mg PO DAILY 03/20/23 10/30/23 Metoprolol Succinate (ER) [Toprol 25 mg PO DAILY 03/20/23 10/30/23 XL] Apixaban [Eliquis] 5 mg PO BID 04/17/23 10/30/23 Famotidine [Pepcid] 20 mg PO DAILY 10/30/23 10/30/23 Glimepiride [Amaryl] 1 mg PO DAILY 10/30/23 10/30/23 amLODIPine [Norvasc] 5 mg PO DAILY 10/30/23 10/30/23 Previous Rx's Medication Instructions Recorded Buprenorphine [Butrans 5 MCG/HR] 1 patch TRANSDERM SA #1 patch 11/08/23 DAPTOmycin [Cubicin] 1 mg IV DAILY #28 each 11/08/23 Gabapentin [Neurontin] 100 mg PO TID #9 cap 11/08/23 HYDROcodone/APAP 10-325MG [[place] 1 tab PO Q4HR PRN #18 tab 11/08/23 10-325] Loperamide [Imodium] 2 mg PO QID PRN cap 11/08/23 Meropenem [Merrem] 1 gm IVPB Q8H #84 each 11/08/23 Allergies Allergy/AdvReac Type Severity Reaction Status Date / Time cefepime Allergy Anaphylaxis Verified 10/30/23 10:16 latex Allergy Rash/red Verified 10/30/23 10:16 skin Penicillins Allergy Rash/Hives Verified 10/30/23 10:16 Review of Systems ROS Statement: Those systems with pertinent positive or pertinent negative responses have been documented in the HPI. ROS Other: All systems not noted in ROS Statement are negative. 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, VRE Date of last positivie culture/infection: 10/30/23 MRSA and VRE MDRO Source:: Left Heel-VRE; Left Leg-MRSA Past Surgical History: Appendectomy, Section, Cholecystectomy, Heart Catheterization, Hysterectomy Additional Past Surgical History / Comment(s): pericardial window, surgery mir eyes for glaucoma, cyst removal on abdomen Past Anesthesia/Blood Transfusion Reactions: Blood Transfusion Reaction Additional Past Anesthesia/Blood Transfusion Reaction / Comment(s): reaction to blood transfusion 25-30 yrs ago-"I got red and they pulled it out" Past Psychological History: No Psychological Hx Reported Smoking Status: Former smoker Past Alcohol Use History: None Reported Past Drug Use History: None Reported - Past Family History Father Family Medical History: Cancer Brother(s) Family Medical History: Cancer Disposition Referrals: Alexx Olmstead MD [Primary Care Provider] - 1-2 days
--- NOTE | 2024-04-21 09:46 | ED ---
General Adult HPI - General Chief complaint: Shortness of Breath Stated complaint: AGAPITO Time Seen by Provider: 04/21/24 09:13 Source: patient, EMS Mode of arrival: EMS Limitations: no limitations - History of Present Illness Initial comments: Dictation was produced using [employer]ok[employer] dictation software. please excuse any grammatical, word or spelling errors. Chief Complaint: 84-year-old female multiple comorbidities presents to the ER for shortness of breath History of Present Illness: 84-year-old female multiple comorbidities presents to the emergency department with dyspnea upon waking. Patient has multiple comorbidities. States that she feels short of breath. She is a poor historian. She denies any pain. Denies any fever, chills or night sweats. She does report a cough. Patient arrives from home. The ROS documented in this emergency department record has been reviewed and confirmed by me. Those systems with pertinent positive or negative responses have been documented in the HPI. All other systems are other negative and/or noncontributory. - Related Data Home Medications Medication Instructions Recorded Confirmed Atorvastatin [Lipitor] 20 mg PO HS 08/27/21 10/30/23 Empagliflozin [Jardiance] 10 mg PO DAILY 03/20/23 10/30/23 Metoprolol Succinate (ER) [Toprol 25 mg PO DAILY 03/20/23 10/30/23 XL] Apixaban [Eliquis] 5 mg PO BID 04/17/23 10/30/23 Famotidine [Pepcid] 20 mg PO DAILY 10/30/23 10/30/23 Glimepiride [Amaryl] 1 mg PO DAILY 10/30/23 10/30/23 amLODIPine [Norvasc] 5 mg PO DAILY 10/30/23 10/30/23 Previous Rx's Medication Instructions Recorded Buprenorphine [Butrans 5 MCG/HR] 1 patch TRANSDERM SA #1 patch 11/08/23 DAPTOmycin [Cubicin] 1 mg IV DAILY #28 each 11/08/23 Gabapentin [Neurontin] 100 mg PO TID #9 cap 11/08/23 HYDROcodone/APAP 10-325MG [Dighton 1 tab PO Q4HR PRN #18 tab 11/08/23 10-325] Loperamide [Imodium] 2 mg PO QID PRN cap 11/08/23 Meropenem [Merrem] 1 gm IVPB Q8H #84 each 11/08/23 Allergies Allergy/AdvReac Type Severity Reaction Status Date / Time cefepime Allergy Anaphylaxis Verified 04/21/24 09:18 latex Allergy Rash/red Verified 04/21/24 09:18 skin Penicillins Allergy Rash/Hives Verified 04/21/24 09:18 Review of Systems ROS Statement: Those systems with pertinent positive or pertinent negative responses have been documented in the HPI. ROS Other: All systems not noted in ROS Statement are negative. 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, VRE Date of last positivie culture/infection: 10/30/23 MRSA and VRE MDRO Source:: Left Heel-VRE; Left Leg-MRSA Past Surgical History: Appendectomy, Section, Cholecystectomy, Heart Catheterization, Hysterectomy Additional Past Surgical History / Comment(s): pericardial window, surgery mir eyes for glaucoma, cyst removal on abdomen Past Anesthesia/Blood Transfusion Reactions: Blood Transfusion Reaction Additional Past Anesthesia/Blood Transfusion Reaction / Comment(s): reaction to blood transfusion 25-30 yrs ago-"I got red and they pulled it out" Past Psychological History: No Psychological Hx Reported Smoking Status: Former smoker Past Alcohol Use History: None Reported Past Drug Use History: None Reported - Past Family History Father Family Medical History: Cancer Brother(s) Family Medical History: Cancer General Exam - General Exam Comments Initial Comments: PHYSICAL EXAM: General Impression: Alert and oriented x3, not in acute distress, sleeping resting comfortably, air boots to the bilateral feet, indwelling Craven catheter HEENT: Normocephalic atraumatic, extra-ocular movements intact, pupils equal and reactive to light bilaterally, mucous membranes moist. Cardiovascular: Heart regular rate and rhythm Chest: Able to complete full sentences, no retractions, no tachypnea, clear to auscultation bilaterally Abdomen: abdomen soft, non-tender, non-distended, no organomegaly Musculoskeletal: Pulses present and equal in all extremities, no peripheral edema Motor: no focal deficits noted Neurological: CN II-XII grossly intact, no focal motor or sensory deficits noted Skin: Intact with no visualized rashes Limitations: no limitations Course Vital Signs 04/21/24 04/21/24 04/21/24 09:15 09:18 11:28 Temperature 97.5 F L 98 F Pulse Rate 59 L 54 L Respiratory 20 18 18 Rate Blood Pressure 101/49 95/35 O2 Sat by Pulse 100 99 Oximetry 04/21/24 04/21/24 04/21/24 11:48 12:00 12:42 Temperature Pulse Rate 57 L 60 72 Respiratory 18 Rate Blood Pressure 118/36 O2 Sat by Pulse 98 Oximetry 04/21/24 13:52 Temperature Pulse Rate 59 L Respiratory 18 Rate Blood Pressure 99/82 O2 Sat by Pulse 99 Oximetry EKG Findings - EKG Comments: EKG Findings:: My EKG interpretation: Ventricular rate 56, bradycardia. No obvious P waves. QRS 87, QTc 391. Overall this EKG is concerning for nonsinus narrow complex QRS bradycardia Medical Decision Making - Medical Decision Making Was pt. sent in by a medical professional or institution (, PA, ATTRACTIONS ASSOCIATE, urgent care, hospital, or alf...) When possible be specific @ -No Did you speak to anyone other than the patient for history (EMS, parent, family, police, friend...)? What history was obtained from this source @ -History obtained from EMS as described above Did you review nursing and triage notes (agree or disagree)? Why? @ -I reviewed and agree with nursing and triage notes Were old charts reviewed (outside hosp., previous admission, EMS record, old EKG, old radiological studies, urgent care reports/EKG's, alf records)? Report findings @ -No old charts were reviewed Differential Diagnosis (chest pain, altered mental status, abdominal pain women, abdominal pain men, vaginal bleeding, musculoskeletal, weakness, fever, d yspnea, syncope, headache, dizziness, GI bleed, back pain, seizure, CVA, palpatations, mental health)? @ -Differential Dyspnea: Coronary syndrome, arrhythmia, tamponade, asthma, COPD, pulmonary embolism, pneumonia, pneumothorax, pulmonary effusion, anaphylaxis, diabetic ketoacidosis, flailed chest, pulmonary contusion, diaphragmatic rupture, anemia, neuromuscular, this is not meant to be an all-inclusive list. EKG interpreted by me (3pts min.). @ -See above X-rays interpreted by me (1pt min.). @ -Chest x-ray shows heart failure CT interpreted by me (1pt min.). @ -None done U/S interpreted by me (1pt. min.). @ -None done What testing was considered but not performed or refused? (CT, X-rays, U/S, labs)? Why? @ -None What meds were considered but not given or refused? Why? @ -None Was smoking cessation discussed for >3mins.? @ -No Were there social determinants of health that impacted care today? How? (Homelessness, low income, unemployed, alcoholism, drug addiction, transporta tion, low edu. Level, literacy, decrease access to med. care, [facility], rehab)? @ -No Was there de-escalation of care discussed even if they declined (Discuss DNR or withdrawal of care, Hospice)? DNR status @ -No What co-morbidities impacted this encounter? (DM, HTN, Smoking, COPD, CAD, Cancer, CVA, ARF, Chemo, Hep., AIDS, mental health diagnosis, sleep apnea, morbid obesity)? @ -Diabetes, hypertension, renal disease Was patient admitted / discharged? Hospital course, mention meds given and route , prescriptions, significant lab abnormalities, going to OR and other pertinent info. @ -84-year-old female chief complaint of dyspnea. Vital signs upon arrival are within acceptable limits. Patient is well-appearing at bedside. EKG strangely shows no P waves and is bradycardic. Laboratory evaluation obtained. CBC and coag panel is negative. Metabolic panel shows potassium 6.7 that elevated renal function. Urinalysis shows greater than 182 white blood cells. Viral testing negative. Chest x-ray shows heart failure. Patient well-appearing from respiratory standpoint. Patient given hyperkalemia cocktail. Case discussed with nephrology and hospitalist for admission. Did you discuss the management of the patient with other professionals (professionals i.e. , PA, ATTRACTIONS ASSOCIATE, lab, RT, psych nurse, social problems specialist, transformer shop supervisor, teacher, philanthropy officer, disease case manager rn)? Give summary @ -See above Was critical care preformed (if so, how long)? @ -Yes, 33 minutes Undiagnosed new problem with uncertain prognosis? @ -No Drug Therapy requiring intensive monitoring for toxicity (Heparin, Nitro, In sulin, Cardizem)? @ -No Were any procedures done? @ -No Diagnosis/symptom? Acute, or Chronic, or Acute on Chronic? Uncomplicated (without systemic symptoms) or Complicated (systemic symptoms)? @ -Hyperkalemia Side effects of treatment? @ -No Exacerbation, Progression, or Severe Exacerbation? @ -No Poses a threat to life or bodily function? How? (Chest pain, [place], [place], pneumonia, PE, COPD, DKA, ARF, appy, cholecystitis, CVA, Diverticulitis, Homicidal, Suicidal, threat to staff... and all critical care pts) @ -yes - Lab Data Result diagrams: 04/21/24 10:28 04/21/24 11:39 Lab Results 04/21/24 04/21/24 04/21/24 Range/Units 10:28 10:28 10:28 WBC 9.0 (3.8-10.6) k/uL RBC 4.28 (3.80-5.40) m/uL Hgb 11.0 L (11.4-16.0) gm/dL Hct 38.5 (34.0-46.0) % MCV 90.1 (80.0-100.0) fL MCH 25.8 (25.0-35.0) pg MCHC 28.7 L (31.0-37.0) g/dL RDW 18.3 H (11.5-15.5) % Plt Count 312 (150-450) k/uL MPV 6.8 Neutrophils % 79 % Lymphocytes % 11 % Monocytes % 3 % Eosinophils % 5 % Basophils % 0 % Neutrophils # 7.1 (1.3-7.7) k/uL Lymphocytes # 1.0 (1.0-4.8) k/uL Monocytes # 0.3 (0-1.0) k/uL Eosinophils # 0.4 (0-0.7) k/uL Basophils # 0.0 (0-0.2) k/uL Hypochromasia Marked Anisocytosis Slight PT 10.8 (10.0-12.5) sec INR 1.0 (<1.2) APTT 27.2 (22.0-30.0) sec VBG pH (7.31-7.41) VBG pCO2 (37-51) mmHg VBG HCO3 (24-28) mmol/L Sodium 137 (137-145) mmol/L Potassium 6.7 H* (3.5-5.1) mmol/L Chloride 98 (98-107) mmol/L Carbon Dioxide 25 (22-30) mmol/L Anion Gap 14 mmol/L BUN 61 H (7-17) mg/dL Creatinine 2.46 H (0.52-1.04) mg/dL Est GFR (CKD-EPI)AfAm 20 (>60 ml/min/1.73 sqM) Est GFR (CKD-EPI)NonAf 17 (>60 ml/min/1.73 sqM) Glucose 138 H (74-99) mg/dL POC Glucose (mg/dL) (70-110) mg/dL POC Glu Design Eng ID Plasma Lactic Acid Karlo (0.7-2.0) mmol/L Calcium 8.4 (8.4-10.2) mg/dL Magnesium 2.7 H (1.6-2.3) mg/dL Total Bilirubin 0.4 (0.2-1.3) mg/dL AST 21 (14-36) U/L ALT 8 (4-34) U/L Alkaline Phosphatase 112 (38-126) U/L Troponin I (0.000-0.034) ng/mL NT-Pro-B Natriuret Pep 7660 pg/mL Total Protein 7.0 (6.3-8.2) g/dL Albumin 3.7 (3.5-5.0) g/dL Urine Color Urine Appearance (Clear) Urine pH (5.0-8.0) Ur Specific Edroy (1.001-1.035) Urine Protein (Negative) Urine Glucose (UA) (Negative) Urine Ketones (Negative) Urine Blood (Negative) Urine Nitrite (Negative) Urine Bilirubin (Negative) Urine Urobilinogen (<2.0) mg/dL Ur Leukocyte Esterase (Negative) Urine RBC (0-5) /hpf Urine WBC (0-5) /hpf Ur Squamous Epith Cells (0-4) /hpf Amorphous Sediment (None) /hpf Urine Bacteria (None) /hpf Hyaline Casts (0-2) /lpf Urine Mucus (None) /hpf Influenza Type A (PCR) (Not Detectd) Influenza Type B (PCR) (Not Detectd) RSV (PCR) (Not Detectd) SARS-CoV-2 (PCR) (Not Detectd) 04/21/24 04/21/24 04/21/24 Range/Units 10:28 10:28 10:28 WBC (3.8-10.6) k/uL RBC (3.80-5.40) m/uL Hgb (11.4-16.0) gm/dL Hct (34.0-46.0) % MCV (80.0-100.0) fL MCH (25.0-35.0) pg MCHC (31.0-37.0) g/dL RDW (11.5-15.5) % Plt Count (150-450) k/uL MPV Neutrophils % % Lymphocytes % % Monocytes % % Eosinophils % % Basophils % % Neutrophils # (1.3-7.7) k/uL Lymphocytes # (1.0-4.8) k/uL Monocytes # (0-1.0) k/uL Eosinophils # (0-0.7) k/uL Basophils # (0-0.2) k/uL Hypochromasia Anisocytosis PT (10.0-12.5) sec INR (<1.2) APTT (22.0-30.0) sec VBG pH (7.31-7.41) VBG pCO2 (37-51) mmHg VBG HCO3 (24-28) mmol/L Sodium (137-145) mmol/L Potassium (3.5-5.1) mmol/L Chloride (98-107) mmol/L Carbon Dioxide (22-30) mmol/L Anion Gap mmol/L BUN (7-17) mg/dL Creatinine (0.52-1.04) mg/dL Est GFR (CKD-EPI)AfAm (>60 ml/min/1.73 sqM) Est GFR (CKD-EPI)NonAf (>60 ml/min/1.73 sqM) Glucose (74-99) mg/dL POC Glucose (mg/dL) (70-110) mg/dL POC Glu Design Eng ID Plasma Lactic Acid Karlo 1.8 (0.7-2.0) mmol/L Calcium (8.4-10.2) mg/dL Magnesium (1.6-2.3) mg/dL Total Bilirubin (0.2-1.3) mg/dL AST (14-36) U/L ALT (4-34) U/L Alkaline Phosphatase (38-126) U/L Troponin I <0.012 (0.000-0.034) ng/mL NT-Pro-B Natriuret Pep pg/mL Total Protein (6.3-8.2) g/dL Albumin (3.5-5.0) g/dL Urine Color Urine Appearance (Clear) Urine pH (5.0-8.0) Ur Specific Edroy (1.001-1.035) Urine Protein (Negative) Urine Glucose (UA) (Negative) Urine Ketones (Negative) Urine Blood (Negative) Urine Nitrite (Negative) Urine Bilirubin (Negative) Urine Urobilinogen (<2.0) mg/dL Ur Leukocyte Esterase (Negative) Urine RBC (0-5) /hpf Urine WBC (0-5) /hpf Ur Squamous Epith Cells (0-4) /hpf Amorphous Sediment (None) /hpf Urine Bacteria (None) /hpf Hyaline Casts (0-2) /lpf Urine Mucus (None) /hpf Influenza Type A (PCR) Not Detected (Not Detectd) Influenza Type B (PCR) Not Detected (Not Detectd) RSV (PCR) Not Detected (Not Detectd) SARS-CoV-2 (PCR) Not Detected (Not Detectd) 04/21/24 04/21/24 04/21/24 Range/Units 10:28 11:39 11:39 WBC (3.8-10.6) k/uL RBC (3.80-5.40) m/uL Hgb (11.4-16.0) gm/dL Hct (34.0-46.0) % MCV (80.0-100.0) fL MCH (25.0-35.0) pg MCHC (31.0-37.0) g/dL RDW (11.5-15.5) % Plt Count (150-450) k/uL MPV Neutrophils % % Lymphocytes % % Monocytes % % Eosinophils % % Basophils % % Neutrophils # (1.3-7.7) k/uL Lymphocytes # (1.0-4.8) k/uL Monocytes # (0-1.0) k/uL Eosinophils # (0-0.7) k/uL Basophils # (0-0.2) k/uL Hypochromasia Anisocytosis PT (10.0-12.5) sec INR (<1.2) APTT (22.0-30.0) sec VBG pH 7.27 L (7.31-7.41) VBG pCO2 60 H (37-51) mmHg VBG HCO3 27 (24-28) mmol/L Sodium (137-145) mmol/L Potassium 6.9 H* (3.5-5.1) mmol/L Chloride (98-107) mmol/L Carbon Dioxide (22-30) mmol/L Anion Gap mmol/L BUN (7-17) mg/dL Creatinine (0.52-1.04) mg/dL Est GFR (CKD-EPI)AfAm (>60 ml/min/1.73 sqM) Est GFR (CKD-EPI)NonAf (>60 ml/min/1.73 sqM) Glucose (74-99) mg/dL POC Glucose (mg/dL) (70-110) mg/dL POC Glu Design Eng ID Plasma Lactic Acid Karlo (0.7-2.0) mmol/L Calcium (8.4-10.2) mg/dL Magnesium (1.6-2.3) mg/dL Total Bilirubin (0.2-1.3) mg/dL AST (14-36) U/L ALT (4-34) U/L Alkaline Phosphatase (38-126) U/L Troponin I (0.000-0.034) ng/mL NT-Pro-B Natriuret Pep pg/mL Total Protein (6.3-8.2) g/dL Albumin (3.5-5.0) g/dL Urine Color Yellow Urine Appearance Turbid H (Clear) Urine pH 7.5 (5.0-8.0) Ur Specific Edroy 1.018 (1.001-1.035) Urine Protein 1+ H (Negative) Urine Glucose (UA) Negative (Negative) Urine Ketones Negative (Negative) Urine Blood Small H (Negative) Urine Nitrite Negative (Negative) Urine Bilirubin Negative (Negative) Urine Urobilinogen <2.0 (<2.0) mg/dL Ur Leukocyte Esterase Large H (Negative) Urine RBC 11 H (0-5) /hpf Urine WBC >182 H (0-5) /hpf Ur Squamous Epith Cells 3 (0-4) /hpf Amorphous Sediment Moderate H (None) /hpf Urine Bacteria Few H (None) /hpf Hyaline Casts 36 H (0-2) /lpf Urine Mucus Moderate H (None) /hpf Influenza Type A (PCR) (Not Detectd) Influenza Type B (PCR) (Not Detectd) RSV (PCR) (Not Detectd) SARS-CoV-2 (PCR) (Not Detectd) 04/21/24 Range/Units 11:52 WBC (3.8-10.6) k/uL RBC (3.80-5.40) m/uL Hgb (11.4-16.0) gm/dL Hct (34.0-46.0) % MCV (80.0-100.0) fL MCH (25.0-35.0) pg MCHC (31.0-37.0) g/dL RDW (11.5-15.5) % Plt Count (150-450) k/uL MPV Neutrophils % % Lymphocytes % % Monocytes % % Eosinophils % % Basophils % % Neutrophils # (1.3-7.7) k/uL Lymphocytes # (1.0-4.8) k/uL Monocytes # (0-1.0) k/uL Eosinophils # (0-0.7) k/uL Basophils # (0-0.2) k/uL Hypochromasia Anisocytosis PT (10.0-12.5) sec INR (<1.2) APTT (22.0-30.0) sec VBG pH (7.31-7.41) VBG pCO2 (37-51) mmHg VBG HCO3 (24-28) mmol/L Sodium (137-145) mmol/L Potassium (3.5-5.1) mmol/L Chloride (98-107) mmol/L Carbon Dioxide (22-30) mmol/L Anion Gap mmol/L BUN (7-17) mg/dL Creatinine (0.52-1.04) mg/dL Est GFR (CKD-EPI)AfAm (>60 ml/min/1.73 sqM) Est GFR (CKD-EPI)NonAf (>60 ml/min/1.73 sqM) Glucose (74-99) mg/dL POC Glucose (mg/dL) 140 H (70-110) mg/dL POC Glu Design Eng ID Candy Martin Plasma Lactic Acid Karlo (0.7-2.0) mmol/L Calcium (8.4-10.2) mg/dL Magnesium (1.6-2.3) mg/dL Total Bilirubin (0.2-1.3) mg/dL AST (14-36) U/L ALT (4-34) U/L Alkaline Phosphatase (38-126) U/L Troponin I (0.000-0.034) ng/mL NT-Pro-B Natriuret Pep pg/mL Total Protein (6.3-8.2) g/dL Albumin (3.5-5.0) g/dL Urine Color Urine Appearance (Clear) Urine pH (5.0-8.0) Ur Specific Edroy (1.001-1.035) Urine Protein (Negative) Urine Glucose (UA) (Negative) Urine Ketones (Negative) Urine Blood (Negative) Urine Nitrite (Negative) Urine Bilirubin (Negative) Urine Urobilinogen (<2.0) mg/dL Ur Leukocyte Esterase (Negative) Urine RBC (0-5) /hpf Urine WBC (0-5) /hpf Ur Squamous Epith Cells (0-4) /hpf Amorphous Sediment (None) /hpf Urine Bacteria (None) /hpf Hyaline Casts (0-2) /lpf Urine Mucus (None) /hpf Influenza Type A (PCR) (Not Detectd) Influenza Type B (PCR) (Not Detectd) RSV (PCR) (Not Detectd) SARS-CoV-2 (PCR) (Not Detectd) Disposition Clinical Impression: Hyperkalemia Disposition: ADMITTED IP TO THIS HOSP Condition: Critical Referrals: Alexx Olmstead MD [Primary Care Provider] - 1-2 days Decision Time: 14:42
[2024-04-21 10:37] LABS: Anisocytosis Slight; Basophils % (A) 0 %; Eosinophils # (A) 0.4 k/uL (0-0.7); Eosinophils % (A) 5 %; HCT 38.5 % (34.0-46.0); Hypochromasia Marked; Lymphocytes % (A) 11 %; MCH 25.8 pg (25.0-35.0); MCHC 28.7 g/dL (31.0-37.0); MCV 90.1 fL (80.0-100.0); Mean Platelet Volume 6.8; Monocytes # (A) 0.3 k/uL (0-1.0); Monocytes % (A) 3 %; Neutrophils # (A) 7.1 k/uL (1.3-7.7); Neutrophils % (A) 79 %; Platelet Count 312 k/uL (150-450); RBC 4.28 m/uL (3.80-5.40); RDW 18.3 % (11.5-15.5); VBG PH 7.27 (7.31-7.41)
[2024-04-21 10:48] LABS: ALT 8 U/L (4-34); AST 21 U/L (14-36); African American GFR (CKD) 20 (>60 ml/min/1.73 sqM); Albumin 3.7 g/dL (3.5-5.0); Alkaline Phosphatase 112 U/L (38-126); Anion Gap 14 mmol/L; Blood Urea Nitrogen 61 mg/dL (7-17); Calcium 8.4 mg/dL (8.4-10.2); Carbon Dioxide 25 mmol/L (22-30); Chloride 98 mmol/L (98-107); Glucose 138 mg/dL (74-99); Magnesium 2.7 mg/dL (1.6-2.3); Non-African American GFR(CKD) 17 (>60 ml/min/1.73 sqM); Sodium 137 mmol/L (137-145); Total Bilirubin 0.4 mg/dL (0.2-1.3)
[2024-04-21 10:52] LABS: Partial Thromboplastin Time 27.2 sec (22.0-30.0); Prothrombin Time 10.8 sec (10.0-12.5)
[2024-04-21 10:53] LABS: Potassium 6.7 mmol/L (3.5-5.1)
[2024-04-21 10:56] LABS: NT-Pro-B-Type Natriuretic Pept 7660 pg/mL
--- NOTE | 2024-04-21 11:39 | XR ---
EXAMINATION TYPE: XR chest 2V DATE OF EXAM: 04/21/2024 COMPARISON: 03/20/2023 HISTORY: 84-year-old female with shortness of breath, difficult breathing TECHNIQUE: AP and lateral views FINDINGS: Heart upper limits of normal in size. Increased interstitial densities. There is a small to moderate left pleural effusion with left basilar opacity. Similar eventration anterior right hemidiaphragm. IMPRESSION: 1. Correlate for CHF with pulmonary vascular congestion. 2. Small to moderate left pleural effusion with adjacent atelectasis and/or consolidation. [facility], , 04/21/2024 11:37 AM
[2024-04-21] MEDS: ALBUTEROL NEB (CONC) 2.5 MG/0.5 ML INHALATION ONE (11:47)
[2024-04-21] MEDS: DEXTROSE 50% SYRINGE 50 ML IVP STA ×2 (11:53→15:32)
[2024-04-21] MEDS: INSULIN REGULAR 100 UNIT/ML VIAL (IV) IV ONE ×2 (11:53→15:34)
[2024-04-21 11:59] LABS: Glucose,Whole Blood 140 mg/dL (70-110)
[2024-04-21] MEDS: CALCIUM GLUCONATE IN NACL 1 GM in SALINE 1 100ML.BAG IVPB ONE (11:59)
[2024-04-21 12:06] LABS: Amorphous Sediment,Urine Moderate /hpf; Appearance,Urine Turbid (Clear); Bacteria,Urine Few /hpf; Bilirubin,Urine Negative (Negative); Blood,Urine Small (Negative); Color,Urine Yellow; Glucose,Urine (UA) Negative (Negative); Hyaline Casts,Urine 36 /lpf (0-2); Ketones,Urine Negative (Negative); Leukocyte Esterase,Urine Large (Negative); Mucus,Urine Moderate /hpf; Nitrite,Urine Negative (Negative); PH, Urine 7.5 (5.0-8.0); Protein,Urine 1+ (Negative); RBC,Urine 11 /hpf (0-5); Specific Gravity,Urine 1.018 (1.001-1.035); Squamous Epithelial Cell,Urine 3 /hpf (0-4); Urobilinogen,Urine <2.0 mg/dL (<2.0); WBC,Urine >182 /hpf (0-5)
[2024-04-21] MEDS: SODIUM ZIRCONIUM CYCLOSILICATE 10 GM PACKET PO ONE ×3 (12:06→21:16)
[2024-04-21] MEDS: DEXTROSE 10% IN WATER 500 ML in EMPTY BAG 1 BAG IV SCH (12:09)
[2024-04-21] MEDS: SODIUM BICARB 8.4% 50 ML SYR (1 MEQ/ML) IV STA (12:36)
[2024-04-21] MEDS ORDERED: NALOXONE 0.4 MG/ML 1 ML VIAL IV PRN (14:39)
[2024-04-21 15:42] LABS: Glucose,Whole Blood 143 mg/dL (70-110)
[2024-04-21] MEDS: SODIUM CHLORIDE 0.9% 1,000 ML IV SCH (15:42)
[2024-04-21] MEDS: FUROSEMIDE 10 MG/ML 4 ML VIAL IV STA (15:45)
--- NOTE | 2024-04-21 16:13 | US ---
EXAMINATION TYPE: US kidneys/renal and bladder DATE OF EXAM: 04/21/2024 COMPARISON: 11/03/2023 CLINICAL INDICATION: Female, 84 years old with history of MAYRA EXAM MEASUREMENTS: Right Kidney: 10.9 x 4.0 x 4.3 cm Left Kidney: 10.0 x 5.2 x 3.6 cm Lap Maker notes:Technical limitations due to patient's body habitus and limited mobility. Patient unable to roll from LPO position Right Kidney: thin renal cortex. No hydronephrosis. Left Kidney: limited evaluation. Very limited detail parenchymal assessment. No leonard hydronephrosis seen. Bladder: unable to visualize IMPRESSION: 1. Changes of bilateral chronic medical renal disease. No hydronephrosis on either side. 2. Detailed parenchymal assessment of the left kidney is very limited due to above-mentioned limitati ons. 3. Unable to adequately assess the bladder. [facility], , 04/21/2024 4:10 PM
--- NOTE | 2024-04-21 16:49 | P.HPIM ---
History of Present Illness H&P Date: 04/21/24 Chief Complaint: Shortness of breath 84-year-old female multiple comorbidities presents to the emergency department with dyspnea upon waking. Patient has multiple comorbidities. States that she feels short of breath. She is a poor historian. She denies any pain. Denies any fever, chills or night sweats. She does report a cough. Patient arrives from home. Patient is sleepy and not able to provide much history; family is not available at bedside Blood work reveals WBC of 9.2, hemoglobin of 11, platelet count of 312, sodium 137, potassium 6.7, BUNs/creatinine of 61/2.46, magnesium elevated at 2.7, BNP of 7660, lactic acid of 1.8, troponin less than 0.012, influenza, RSV and COVID- 19 PCR is negative. UA is positive for leukocyte esterase, WBCs and bacteria EKG strangely shows no P waves and is bradycardic. Laboratory evaluation obtained. CBC and coag panel is negative. Metabolic panel shows potassium 6.7 that elevated renal function. Urinalysis shows greater than 182 white blood cells. Viral testing negative. Chest x-ray shows heart failure. Patient well- appearing from respiratory standpoint. Patient given hyperkalemia cocktail. Review of Systems REVIEW OF SYSTEMS: CONSTITUTIONAL: No fever, no malaise, no fatigue. HEENT: No recent visual problems or hearing problems. Denied any sore throat. CARDIOVASCULAR: No chest pain, orthopnea, PND, no palpitations, no syncope. PULMONARY: No shortness of breath, no cough, no hemoptysis. GASTROINTESTINAL: No diarrhea, no nausea, no vomiting, no abdominal pain. NEUROLOGICAL: No headaches, no weakness, no numbness. HEMATOLOGICAL: Denies any bleeding or petechiae. GENITOURINARY: Denies any burning micturition, frequency, or urgency. MUSCULOSKELETAL/RHEUMATOLOGICAL: Denies any joint pain, swelling, or any muscle pain. ENDOCRINE: Denies any polyuria or polydipsia. The rest of the 14-point review of systems is negative. 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, VRE Date of last positivie culture/infection: 10/30/23 MRSA and VRE MDRO Source:: Left Heel-VRE; Left Leg-MRSA Past Surgical History: Appendectomy, Section, Cholecystectomy, Heart Catheterization, Hysterectomy Additional Past Surgical History / Comment(s): pericardial window, surgery mir eyes for glaucoma, cyst removal on abdomen Past Anesthesia/Blood Transfusion Reactions: Blood Transfusion Reaction Additional Past Anesthesia/Blood Transfusion Reaction / Comment(s): reaction to blood transfusion 25-30 yrs ago-"I got red and they pulled it out" Past Psychological History: No Psychological Hx Reported Smoking Status: Former smoker Past Alcohol Use History: None Reported Past Drug Use History: None Reported - Past Family History Father Family Medical History: Cancer Brother(s) Family Medical History: Cancer Medications and Allergies Home Medications Medication Instructions Recorded Confirmed Type Apixaban [Eliquis] 5 mg PO BID 04/17/23 04/21/24 History Famotidine [Pepcid] 20 mg PO DAILY 10/30/23 04/21/24 History Glimepiride [Amaryl] 1 mg PO DAILY 10/30/23 04/21/24 History amLODIPine [Norvasc] 5 mg PO DAILY 10/30/23 04/21/24 History Gabapentin [Neurontin] 100 mg PO TID #9 cap 11/08/23 04/21/24 Rx HYDROcodone/APAP 10-325MG [[place] 1 tab PO Q4HR PRN #18 tab 11/08/23 04/21/24 Rx 10-325] Ascorbic Acid [Vitamin C] 500 mg PO BID 04/21/24 04/21/24 History Buprenorphine [Butrans 7.5 MCG/HR] 1 patch TRANSDERM Q7D 04/21/24 04/21/24 History Collagenase [Santyl Ointment] 1 applic TOPICAL DAILY 04/21/24 04/21/24 History Diclofenac Sodium Gel [Voltaren 1% 1 applic TOPICAL BID 04/21/24 04/21/24 History Gel] EPINEPHrine (Auto Inject) [Epipen] 0.3 mg IM ONCE PRN 04/21/24 04/21/24 History Ferrous Sulfate [Feosol] 325 mg PO DAILY 04/21/24 04/21/24 History Lidocaine 4% [place] 1 - 2 spray TOPICAL BID PRN 04/21/24 04/21/24 History Miconazole Nitrate [Miconazole 1 applic TOPICAL BID 04/21/24 04/21/24 History Nitrate 2%] Midodrine [ProAmatine] 5 mg PO TID 04/21/24 04/21/24 History Nystatin 100,000 Unit/gm Powd 1 applic TOPICAL BID 04/21/24 04/21/24 History [Mycostatin Powder] Omeprazole [PriLOSEC] 20 mg PO DAILY 04/21/24 04/21/24 History Sulfamethox-Tmp 800-160Mg [Bactrim 1 tab PO Q12HR 04/21/24 04/21/24 History DS 800-160 mg] Torsemide [Demadex] 20 mg PO BID 04/21/24 04/21/24 History hydrALAZINE HCL [Apresoline] 25 mg PO TID 04/21/24 04/21/24 History Allergies Allergy/AdvReac Type Severity Reaction Status Date / Time cefepime Allergy Anaphylaxis Verified 04/21/24 15:19 latex Allergy Rash/red Verified 04/21/24 15:19 skin Penicillins Allergy Rash/Hives Verified 04/21/24 15:19 Physical Exam Vitals: Vital Signs Temp Pulse Resp BP Pulse Ox 04/21/24 15:26 56 L 18 95/47 100 04/21/24 13:52 59 L 18 99/82 99 04/21/24 12:42 72 18 118/36 98 04/21/24 12:00 60 04/21/24 11:48 57 L 04/21/24 11:28 98 F 54 L 18 95/35 99 04/21/24 09:18 18 04/21/24 09:15 97.5 F L 59 L 20 101/49 100 Intake and Output 04/21/24 04/21/24 04/21/24 06:59 14:59 22:59 Other: Weight 79.379 kg General Impression: Alert and oriented x3, not in acute distress, sleeping resting comfortably, air boots to the bilateral feet, indwelling [place] catheter HEENT: Normocephalic atraumatic, extra-ocular movements intact, pupils equal and reactive to light bilaterally, mucous membranes moist. Cardiovascular: Heart regular rate and rhythm Chest: Able to complete full sentences, no retractions, no tachypnea, clear to auscultation bilaterally Abdomen: abdomen soft, non-tender, non-distended, no organomegaly Musculoskeletal: Pulses present and equal in all extremities, no peripheral edema Motor: no focal deficits noted Neurological: CN II-XII grossly intact, no focal motor or sensory deficits noted Skin: Intact with no visualized rashes Results CBC & Chem 7: 04/21/24 10:28 04/21/24 14:14 Labs: Abnormal Lab Results - Last 24 Hours (Table) 04/21/24 04/21/24 04/21/24 Range/Units 10:28 10:28 10:28 Hgb 11.0 L (11.4-16.0) gm/dL MCHC 28.7 L (31.0-37.0) g/dL RDW 18.3 H (11.5-15.5) % VBG pH 7.27 L (7.31-7.41) VBG pCO2 60 H (37-51) mmHg Potassium 6.7 H* (3.5-5.1) mmol/L BUN 61 H (7-17) mg/dL Creatinine 2.46 H (0.52-1.04) mg/dL Glucose 138 H (74-99) mg/dL POC Glucose (mg/dL) (70-110) mg/dL Magnesium 2.7 H (1.6-2.3) mg/dL Urine Appearance (Clear) Urine Protein (Negative) Urine Blood (Negative) Ur Leukocyte Esterase (Negative) Urine RBC (0-5) /hpf Urine WBC (0-5) /hpf Amorphous Sediment (None) /hpf Urine Bacteria (None) /hpf Hyaline Casts (0-2) /lpf Urine Mucus (None) /hpf 04/21/24 04/21/24 04/21/24 Range/Units 11:39 11:39 11:52 Hgb (11.4-16.0) gm/dL MCHC (31.0-37.0) g/dL RDW (11.5-15.5) % VBG pH (7.31-7.41) VBG pCO2 (37-51) mmHg Potassium 6.9 H* (3.5-5.1) mmol/L BUN (7-17) mg/dL Creatinine (0.52-1.04) mg/dL Glucose (74-99) mg/dL POC Glucose (mg/dL) 140 H (70-110) mg/dL Magnesium (1.6-2.3) mg/dL Urine Appearance Turbid H (Clear) Urine Protein 1+ H (Negative) Urine Blood Small H (Negative) Ur Leukocyte Esterase Large H (Negative) Urine RBC 11 H (0-5) /hpf Urine WBC >182 H (0-5) /hpf Amorphous Sediment Moderate H (None) /hpf Urine Bacteria Few H (None) /hpf Hyaline Casts 36 H (0-2) /lpf Urine Mucus Moderate H (None) /hpf 04/21/24 04/21/24 Range/Units 14:14 15:32 Hgb (11.4-16.0) gm/dL MCHC (31.0-37.0) g/dL RDW (11.5-15.5) % VBG pH (7.31-7.41) VBG pCO2 (37-51) mmHg Potassium 6.0 H (3.5-5.1) mmol/L BUN (7-17) mg/dL Creatinine (0.52-1.04) mg/dL Glucose (74-99) mg/dL POC Glucose (mg/dL) 143 H (70-110) mg/dL Magnesium (1.6-2.3) mg/dL Urine Appearance (Clear) Urine Protein (Negative) Urine Blood (Negative) Ur Leukocyte Esterase (Negative) Urine RBC (0-5) /hpf Urine WBC (0-5) /hpf Amorphous Sediment (None) /hpf Urine Bacteria (None) /hpf Hyaline Casts (0-2) /lpf Urine Mucus (None) /hpf Assessment and Plan Assessment: 1. Critical hyperkalemia -Potassium was found to be 6.7 upon arrival to ED; repeat blood work reveals a potassium level of 6.9; no significant EKG changes -Patient received hyper kalemia cocktail in ED -Will plan to monitor potassium levels closely and make further recommendations 2. Acute renal injury; BUN/creatinine elevated at 61/2.46 -Patient has a baseline creatinine of 1.3-1.5 -We will hold off on IV fluid hydration at this time given CHF exacerbation and dyspnea -Renal ultrasound is ordered and pending Consult nephrology 3. Acute exacerbation CHF -Chest x-ray shows pulmonary vascular congestion; BNP is elevated above 7000 -Patient is in acute on chronic renal failure; will order Lasix 40 mg IV x 1 and hold off on any further IV diuretic therapy at this time; patient takes torsemide 20 mg twice daily at home; will hold till further evaluation by cardiology -Consult cardiology for further evaluation 4. Small to moderate left-sided pleural effusion with adjacent atelectasis versus consolidation; symptomatic with dyspnea -Will consult pulmonary for possible thoracentesis 5. UTI; start patient on Rocephin 1 g IV daily; monitor blood cultures and urine culture 6. Hypertension; amlodipine 5 mg daily, hydralazine 25 mg 3 times daily 7. Diabetes mellitus 2; patient takes Amaryl 1 mg daily; will order Accu-Cheks before every meal and at bedtime with insulin sliding scale DVT prophylaxis; CDs/systemic anticoagulation CODE STATUS; full code
[2024-04-21 17:40] LABS: Glucose,Whole Blood 144 mg/dL (70-110)
[2024-04-21] MEDS: INSULIN ASPART (NovoLOG) 100 UNIT/ML VIAL SQ SCH (17:40)
[2024-04-21] MEDS: MIDODRINE 5 MG TAB PO SCH (18:25)
[2024-04-21] MEDS: hydrALAZINE HCL 25 MG TAB PO SCH (18:46)
[2024-04-21] MEDS: APIXABAN 2.5 MG TABLET PO SCH (18:46)
[2024-04-21] MEDS: ASCORBIC ACID 500 MG TAB PO SCH (21:18)
[2024-04-21] MEDS: GABAPENTIN 100 MG CAP PO SCH (21:18)
[2024-04-21 22:09] LABS: Glucose,Whole Blood 181 mg/dL (70-110)
[2024-04-22 01:48] LABS: ALT 7 U/L (4-34); African American GFR (CKD) 21 (>60 ml/min/1.73 sqM); Anion Gap 9 mmol/L; Blood Urea Nitrogen 67 mg/dL (7-17); Carbon Dioxide 28 mmol/L (22-30); Chloride 98 mmol/L (98-107); Glucose 88 mg/dL (74-99); Non-African American GFR(CKD) 18 (>60 ml/min/1.73 sqM); Sodium 135 mmol/L (137-145); Total Bilirubin 0.4 mg/dL (0.2-1.3); Total Protein 5.9 g/dL (6.3-8.2)
[2024-04-22 01:56] LABS: AST 21 U/L (14-36); Alkaline Phosphatase 82 U/L (38-126)
--- NOTE | 2024-04-22 02:33 | P.CNPUL ---
History of Present Illness Consult date: 04/22/24 Requesting physician: Kyle Acosta Reason for consult: pleural effusion Chief complaint: Shortness of breath History of present illness: Patient is an 84-year-old female with past medical history significant for multiple medical comorbidities including hypertension, diabetes mellitus, chronic kidney disease, colon cancer with previous bowel resection and ostomy, femur fracture leaving her bedridden, chronic bilateral lower extremity wounds, DVT anticoagulated on Eliquis. Also, recently treated by her PCP, on an outpatient basis for UTI with Bactrim. Patient is currently in the emergency department room 9, she states that over the last 2 to 3 months she has been progressively more short of breath. She may have history of CHF. States that her lower extremities are chronically swollen. She does take Tosemide at home. Denies missing doses. Chest x-ray showing stable cardiac silhouette, pulmonary vascular congestion, and small to moderate left-sided pleural effusion with adjacent atelectasis and/or consolidation. Patient denies any infectious symptoms. She does have an occasional nonproductive cough. No fevers, chills, sputum production, chest pain. CBC: WBC count 9, hemoglobin 11, hematocrit 38.5, platelets 312. CMP: Sodium 137, potassium 6.9, chloride 98, serum bicarb 25, BUN 61, creatinine 2.46, glucose 138. Lactic 1.8. LFTs unremarkable. Troponin less than 0.012. NT proBNP 7660. Ultrasound of kidneys/renal/bladder showing bilateral chronic renal disease. No hydronephrosis. Overall limited exam. Urinalysis showing few bacteria and large leukocyte esterase. She has a chronic indwelling urinary catheter. Reportedly, last changed Monday. Kidney function is worse than baseline. Reportedly undergoing current treatment for UTI outpatient with Bactrim. Was started on Rocephin in the emergency department. Hyperkalemia has been treated with the hyperkalemia cocktail. Also, receiving doses of Lokelma. Most recent potassium down to 5.8. EKG: Ap pears junctional rhythm with a rate of 56 bpm. No acute ischemic changes. No hyperacute T waves or QRS widening. QT/QTc 398/391. Patient is currently resting comfortably in the stretcher. She is on 2 L nasal cannula. SpO2 is reading 100%. She does not ambulate and has been bedbound since October. Does not appear dyspneic at rest. Normal saline infusing at 75 mL/h. Hemodynamics appear stable. Review of Systems Constitutional: Reports fatigue, Denies chills, Denies fever, Denies night sweats Ears, nose, mouth and throat: Denies headache, Denies nasal congestion, Denies nasal discharge, Denies sinus pressure, Denies sore throat Cardiovascular: Reports leg edema, Reports shortness of breath, Denies chest pain, Denies orthopnea, Denies palpitations, Denies paroxysmal nocturnal dyspnea, Denies syncope Respiratory: Reports as per HPI Gastrointestinal: Reports heartburn, Denies abdominal pain, Denies change in bowel habits, Denies nausea, Denies vomiting Genitourinary: Denies dysuria, Denies flank pain, Denies urinary frequency Musculoskeletal: Reports muscle weakness, Denies arm numbness/tingling, Denies leg numbness/tingling Integumentary: Reports foot/leg ulcers, Reports wounds Neurological: Denies confusion, Denies headaches, Denies seizures, Denies syncope, Denies tremors, Denies visual changes Psychiatric: Denies anxiety, Denies depression 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, VRE Date of last positivie culture/infection: 10/30/23 MRSA and VRE MDRO Source:: Left Heel-VRE; Left Leg-MRSA Past Surgical History: Appendectomy, Section, Cholecystectomy, Heart Catheterization, Hysterectomy Additional Past Surgical History / Comment(s): pericardial window, surgery mir eyes for glaucoma, cyst removal on abdomen Past Anesthesia/Blood Transfusion Reactions: Blood Transfusion Reaction Additional Past Anesthesia/Blood Transfusion Reaction / Comment(s): reaction to blood transfusion 25-30 yrs ago-"I got red and they pulled it out" Past Psychological History: No Psychological Hx Reported Smoking Status: Former smoker Past Alcohol Use History: None Reported Past Drug Use History: None Reported - Past Family History Father Family Medical History: Cancer Brother(s) Family Medical History: Cancer Medications and Allergies Home Medications Medication Instructions Recorded Confirmed Type Apixaban [Eliquis] 5 mg PO BID 04/17/23 04/21/24 History Famotidine [Pepcid] 20 mg PO DAILY 10/30/23 04/21/24 History Glimepiride [Amaryl] 1 mg PO DAILY 10/30/23 04/21/24 History amLODIPine [Norvasc] 5 mg PO DAILY 10/30/23 04/21/24 History Gabapentin [Neurontin] 100 mg PO TID #9 cap 11/08/23 04/21/24 Rx HYDROcodone/APAP 10-325MG [[place] 1 tab PO Q4HR PRN #18 tab 11/08/23 04/21/24 Rx 10-325] Ascorbic Acid [Vitamin C] 500 mg PO BID 04/21/24 04/21/24 History Buprenorphine [Butrans 7.5 MCG/HR] 1 patch TRANSDERM Q7D 04/21/24 04/21/24 History Collagenase [Santyl Ointment] 1 applic TOPICAL DAILY 04/21/24 04/21/24 History Diclofenac Sodium Gel [Voltaren 1% 1 applic TOPICAL BID 04/21/24 04/21/24 History Gel] EPINEPHrine (Auto Inject) [Epipen] 0.3 mg IM ONCE PRN 04/21/24 04/21/24 History Ferrous Sulfate [Feosol] 325 mg PO DAILY 04/21/24 04/21/24 History Lidocaine 4% [place] 1 - 2 spray TOPICAL BID PRN 04/21/24 04/21/24 History Miconazole Nitrate [Miconazole 1 applic TOPICAL BID 04/21/24 04/21/24 History Nitrate 2%] Midodrine [ProAmatine] 5 mg PO TID 04/21/24 04/21/24 History Nystatin 100,000 Unit/gm Powd 1 applic TOPICAL BID 04/21/24 04/21/24 History [Mycostatin Powder] Omeprazole [PriLOSEC] 20 mg PO DAILY 04/21/24 04/21/24 History Sulfamethox-Tmp 800-160Mg [Bactrim 1 tab PO Q12HR 04/21/24 04/21/24 History DS 800-160 mg] Torsemide [Demadex] 20 mg PO BID 04/21/24 04/21/24 History hydrALAZINE HCL [Apresoline] 25 mg PO TID 04/21/24 04/21/24 History Allergies Allergy/AdvReac Type Severity Reaction Status Date / Time cefepime Allergy Anaphylaxis Verified 04/21/24 15:19 latex Allergy Rash/red Verified 04/21/24 15:19 skin Penicillins Allergy Rash/Hives Verified 04/21/24 15:19 Physical Exam Vitals: Vital Signs Temp Pulse Resp BP Pulse Ox 04/22/24 01:04 65 20 114/52 98 04/21/24 18:36 54 L 18 91/46 99 04/21/24 18:00 98 F 56 L 18 103/53 100 04/21/24 17:43 60 18 137/55 99 04/21/24 15:26 56 L 18 95/47 100 04/21/24 13:52 59 L 18 99/82 99 04/21/24 12:42 72 18 118/36 98 04/21/24 12:00 60 04/21/24 11:48 57 L 04/21/24 11:28 98 F 54 L 18 95/35 99 04/21/24 09:18 18 04/21/24 09:15 97.5 F L 59 L 20 101/49 100 Intake and Output 04/21/24 04/21/24 04/22/24 14:59 22:59 06:59 Other: Weight 79.379 kg GENERAL EXAM: Alert, debilitated 84-year-old female, fairly comfortable in no apparent distress. HEAD: Normocephalic and atraumatic EYES: Normal reaction of pupils, equal size. NOSE: Clear with pink turbinates. THROAT: No erythema or exudates. NECK: No masses, no JVD. CHEST: No chest wall deformity. LUNGS: Equal air entry with no crackles, wheeze, rhonchi or dullness. Diminished left basilar lung sounds. On 2 L/min nasal cannula. No conversational dyspnea or accessory muscle use while at rest CVS: S1 and S2 normal with soft systolic murmur, regular rhythm. No extra heart sounds ABDOMEN: Remote appearing midline abdominal incision, functional left colostomy, stoma pink. Active bowel sounds, abdomen is soft, no guarding or rigidity SPINE: No scoliosis or deformity SKIN: No rashes CENTRAL NERVOUS SYSTEM: No focal deficits, tone is normal in all 4 extremities. EXTREMITIES: bilateral lower extremity edema with associated stasis dermatitis. No clubbing, or cyanosis. Peripheral pulses are intact. Results - Laboratory Findings CBC and BMP: 04/21/24 10:28 09/16/24 00:58 PT/INR, D-dimer PT 10.8 sec (10.0-12.5) 04/21/24 10:28 INR 1.0 (<1.2) 04/21/24 10:28 Abnormal lab findings: Abnormal Labs 04/21/24 04/21/24 04/21/24 10:28 10:28 10:28 Hgb 11.0 L MCHC 28.7 L RDW 18.3 H VBG pH 7.27 L VBG pCO2 60 H Potassium 6.7 H* BUN 61 H Creatinine 2.46 H Glucose 138 H POC Glucose (mg/dL) Magnesium 2.7 H Urine Appearance Urine Protein Urine Blood Ur Leukocyte Esterase Urine RBC Urine WBC Amorphous Sediment Urine Bacteria Hyaline Casts Urine Mucus 04/21/24 04/21/24 04/21/24 11:39 11:39 11:52 Hgb MCHC RDW VBG pH VBG pCO2 Potassium 6.9 H* BUN Creatinine Glucose POC Glucose (mg/dL) 140 H Magnesium Urine Appearance Turbid H Urine Protein 1+ H Urine Blood Small H Ur Leukocyte Esterase Large H Urine RBC 11 H Urine WBC >182 H Amorphous Sediment Moderate H Urine Bacteria Few H Hyaline Casts 36 H Urine Mucus Moderate H 04/21/24 04/21/24 04/21/24 14:14 15:32 17:39 Hgb MCHC RDW VBG pH VBG pCO2 Potassium 6.0 H BUN Creatinine Glucose POC Glucose (mg/dL) 143 H 144 H Magnesium Urine Appearance Urine Protein Urine Blood Ur Leukocyte Esterase Urine RBC Urine WBC Amorphous Sediment Urine Bacteria Hyaline Casts Urine Mucus 04/21/24 04/21/24 18:30 22:07 Hgb MCHC RDW VBG pH VBG pCO2 Potassium 5.8 H BUN Creatinine Glucose POC Glucose (mg/dL) 181 H Magnesium Urine Appearance Urine Protein Urine Blood Ur Leukocyte Esterase Urine RBC Urine WBC Amorphous Sediment Urine Bacteria Hyaline Casts Urine Mucus - Diagnostic Findings Chest x-ray: image reviewed Assessment and Plan Assessment: Suspect acute exacerbation of diastolic CHF Suspect small to moderate left-sided pleural effusion Acute dyspnea, secondary to above Acute on chronic kidney injury Recent treatment outpatient for urinary tract infection with Bactrim Severe hyperkalemia, treated with hyperkalemia cocktail twice, most recent potassium down to 5.8 Chronic indwelling urinary catheter Diabetes mellitus, type II History of hypertension History of hyperlipidemia History of bowel resection and ostomy History of left femur fracture, currently bedridden since October, Chronic bilateral lower extremity swelling and wounds History of DVT, anticoagulated on Eliquis Plan: Patient's medications, labs, chest x-ray reviewed Currently on 2 L/min nasal cannula, which she wears at home. SpO2 is reading 99 to 100%. No acute respiratory distress at rest. We were consulted chiefly for patient's left-sided pleural effusion. Obtain chest ultrasound with markings. Consider follow-up echocardiogram, if more recent result not available Cardiology also consulted Hyperkalemia is being managed by nephrology Recheck potassium pending Empirically started on Rocephin in the emergency department. Urine and blood culture pending. Receiving IV maintenance fluids DVT prophylaxis: Eliquis has been restarted GI prophylaxis: Protonix We will continue to follow, and additional recommendations are forthcoming. I have personally seen and examined the patient, performed the documentation and the assessment and plan as written. Number of minutes spent on the visit:20 Time with Patient: Greater than 30
[2024-04-22 04:30] LABS: Anisocytosis Slight; Basophils % (A) 0 %; Eosinophils # (A) 0.7 k/uL (0-0.7); Eosinophils % (A) 9 %; HGB 9.6 gm/dL (11.4-16.0); Hypochromasia Marked; Lymphocytes % (A) 12 %; MCH 26.5 pg (25.0-35.0); MCHC 29.9 g/dL (31.0-37.0); MCV 88.5 fL (80.0-100.0); Mean Platelet Volume 7.5; Monocytes # (A) 0.5 k/uL (0-1.0); Monocytes % (A) 6 %; Neutrophils # (A) 5.9 k/uL (1.3-7.7); Neutrophils % (A) 71 %; Platelet Count 245 k/uL (150-450); RBC 3.61 m/uL (3.80-5.40); RDW 18.5 % (11.5-15.5); WBC 8.3 k/uL (3.8-10.6)
[2024-04-22 04:41] LABS: African American GFR (CKD) 19 (>60 ml/min/1.73 sqM); Anion Gap 9 mmol/L; Blood Urea Nitrogen 65 mg/dL (7-17); Calcium 8.1 mg/dL (8.4-10.2); Carbon Dioxide 30 mmol/L (22-30); Chloride 96 mmol/L (98-107); Glucose 73 mg/dL (74-99); Non-African American GFR(CKD) 17 (>60 ml/min/1.73 sqM); Potassium 5.7 mmol/L (3.5-5.1); Sodium 135 mmol/L (137-145)
[2024-04-22 08:03] LABS: ALT 7 U/L (4-34); AST 21 U/L (14-36); African American GFR (CKD) 20 (>60 ml/min/1.73 sqM); Albumin 3.1 g/dL (3.5-5.0); Alkaline Phosphatase 96 U/L (38-126); Anion Gap 8 mmol/L; Blood Urea Nitrogen 63 mg/dL (7-17); Carbon Dioxide 29 mmol/L (22-30); Chloride 101 mmol/L (98-107); Glucose 78 mg/dL (74-99); Non-African American GFR(CKD) 17 (>60 ml/min/1.73 sqM); Potassium 5.5 mmol/L (3.5-5.1); Sodium 138 mmol/L (137-145); Total Bilirubin 0.2 mg/dL (0.2-1.3); Total Protein 5.9 g/dL (6.3-8.2)
[2024-04-22 08:13] LABS: Glucose,Whole Blood 84 mg/dL (70-110)
[2024-04-22] MEDS: amLODIPine 5 MG TAB PO SCH (08:13)
--- NOTE | 2024-04-22 08:28 | US ---
EXAMINATION TYPE: US chest DATE OF EXAM: 04/22/2024 COMPARISON: 04/21/2024. CLINICAL INDICATION: Female, 84 years old with history of Bilateral pleural effusions; TECHNIQUE: Targeted ultrasound of the posterior lower bilateral hemithoraces EXAM MEASUREMENTS: Right Pleural Effusion pocket size: 2.9 cm Left Pleural Effusion pocket size: 5.9 cm Right side NOT marked for possible thoracentesis outside the dept. Left side NOT marked for possible thoracentesis outside the dept. due to anterior lung tissue Left lung tissue to anterior fluid distance: 1.0 cm Pulmonologists are able to review the images in the patient?s EMR. IMPRESSIONS: Bilateral pleural effusion with lung tissue near the site marked by emergency management coordinator. Site no t marked. [facility], , 04/22/2024 8:26 AM
[2024-04-22] MEDS: FERROUS SULFATE 325 MG TAB PO SCH (08:50)
[2024-04-22] MEDS: FAMOTIDINE 20 MG TAB PO SCH (08:50)
[2024-04-22] MEDS: PANTOPRAZOLE 40 MG TABLET PO SCH (08:50)
[2024-04-22] MEDS: NON FORMULARY DRUG (Buprenorphine [Butrans 7.5 Mcg/Hr] 7.5 MCG/HOUR Patch) TRANSDERM SCH ×2 (08:51→18:19)
[2024-04-22 12:10] LABS: Glucose,Whole Blood 122 mg/dL (70-110)
--- NOTE | 2024-04-22 12:12 | P.NPCON ---
History of Present Illness - History of Present Illness 84-year-old female with a past medical history of hypertension, diabetes elier stroud, CKD stage IIIb (with baseline of), femur fracture leaving her bedridden, chronic bilateral lower extremity wounds, DVT on (Eliquis) presented to the hospital with increased shortness of breath. Nephrology consulted for hyperkalemia. Potassium on admission 6.7, peaked to 7.0 on 04/22 at 00: 58, and most recent from this morning is 5.5. Creatinine on admission 2.46, today it is 2.44. Jocelyne ent's baseline creatinine from 11/28 is 1.311.62. Patient takes Bactrim 415004 mg twice daily at home which increases risk for hyperkalemia. BP was low on admission, normally on midrodine 5mg PO at home. Since admission patient has received albuterol nebulized 10 mg once, calcium gluconate and NaCl 1 g once, dextrose 50% 50 mL IVP once, 20 units of insulin regular and now on NovoLog, 30 g Lokelma,, 100 mL sodium bicarb 8.4%, and NS 75 cc/h. Craven catheter in place for 3-4 months, last changed on 3 days ago. 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, VRE Date of last positivie culture/infection: 10/30/23 MRSA and VRE MDRO Source:: Left Heel-VRE; Left Leg-MRSA Past Surgical History: Appendectomy, Section, Cholecystectomy, Heart Catheterization, Hysterectomy Additional Past Surgical History / Comment(s): pericardial window, surgery mir eyes for glaucoma, cyst removal on abdomen Past Anesthesia/Blood Transfusion Reactions: Blood Transfusion Reaction Additional Past Anesthesia/Blood Transfusion Reaction / Comment(s): reaction to blood transfusion 25-30 yrs ago-"I got red and they pulled it out" Past Psychological History: No Psychological Hx Reported Smoking Status: Former smoker Past Alcohol Use History: None Reported Past Drug Use History: None Reported - Past Family History Father Family Medical History: Cancer Brother(s) Family Medical History: Cancer Medications and Allergies Home Medications Medication Instructions Recorded Confirmed Type Apixaban [Eliquis] 5 mg PO BID 04/17/23 04/21/24 History Famotidine [Pepcid] 20 mg PO DAILY 10/30/23 04/21/24 History Glimepiride [Amaryl] 1 mg PO DAILY 10/30/23 04/21/24 History amLODIPine [Norvasc] 5 mg PO DAILY 10/30/23 04/21/24 History Gabapentin [Neurontin] 100 mg PO TID #9 cap 11/08/23 04/21/24 Rx HYDROcodone/APAP 10-325MG [[place] 1 tab PO Q4HR PRN #18 tab 11/08/23 04/21/24 Rx 10-325] Ascorbic Acid [Vitamin C] 500 mg PO BID 04/21/24 04/21/24 History Buprenorphine [Butrans 7.5 MCG/HR] 1 patch TRANSDERM Q7D 04/21/24 04/21/24 History Collagenase [Santyl Ointment] 1 applic TOPICAL DAILY 04/21/24 04/21/24 History Diclofenac Sodium Gel [Voltaren 1% 1 applic TOPICAL BID 04/21/24 04/21/24 History Gel] EPINEPHrine (Auto Inject) [Epipen] 0.3 mg IM ONCE PRN 04/21/24 04/21/24 History Ferrous Sulfate [Feosol] 325 mg PO DAILY 04/21/24 04/21/24 History Lidocaine 4% [place] 1 - 2 spray TOPICAL BID PRN 04/21/24 04/21/24 History Miconazole Nitrate [Miconazole 1 applic TOPICAL BID 04/21/24 04/21/24 History Nitrate 2%] Midodrine [ProAmatine] 5 mg PO TID 04/21/24 04/21/24 History Nystatin 100,000 Unit/gm Powd 1 applic TOPICAL BID 04/21/24 04/21/24 History [Mycostatin Powder] Omeprazole [PriLOSEC] 20 mg PO DAILY 04/21/24 04/21/24 History Sulfamethox-Tmp 800-160Mg [Bactrim 1 tab PO Q12HR 04/21/24 04/21/24 History DS 800-160 mg] Torsemide [Demadex] 20 mg PO BID 04/21/24 04/21/24 History hydrALAZINE HCL [Apresoline] 25 mg PO TID 04/21/24 04/21/24 History Allergies Allergy/AdvReac Type Severity Reaction Status Date / Time cefepime Allergy Anaphylaxis Verified 04/21/24 15:19 latex Allergy Rash/red Verified 04/21/24 15:19 skin Penicillins Allergy Rash/Hives Verified 04/21/24 15:19 Physical Exam Vitals: Vital Signs Temp Pulse Resp BP Pulse Ox 04/22/24 08:00 75 20 104/47 97 04/22/24 02:00 72 18 114/52 97 04/22/24 01:04 65 20 114/52 98 04/21/24 18:36 54 L 18 91/46 99 04/21/24 18:00 98 F 56 L 18 103/53 100 04/21/24 17:43 60 18 137/55 99 04/21/24 15:26 56 L 18 95/47 100 04/21/24 13:52 59 L 18 99/82 99 04/21/24 12:42 72 18 118/36 98 04/21/24 12:00 60 04/21/24 11:48 57 L 04/21/24 11:28 98 F 54 L 18 95/35 99 Intake and Output 04/21/24 04/22/24 04/22/24 22:59 06:59 14:59 Output Total 422 Balance -422 Output: Urine 350 Post Void Residual 72 General: Alert, in no apparent distress. Head: Normocephalic and atraumatic Lungs: Equal air entry with no crackles, wheeze, rhonchi or dullness. Diminish ed left basilar lung sounds. On 2 L/min nasal cannula. Cardio: S1 and S2 normal with soft systolic murmur, regular rhythm. No extra heart sounds Abdomen: Functional left colostomy, stoma pink, contents of colostomy are a light brown sludge. Active bowel sounds, abdomen is soft, no guarding or rig idity Skin: No rashes Neuro: No focal deficits, tone is normal in all 4 extremities. Extremities: Mostly chronic skin changes with chronic wounds present. No clubbing, or cyanosis. Peripheral pulses are intact. Results - Lab Results Most recent lab results Calcium 8.0 mg/dL (8.4-10.2) L 04/22/24 07:19 Magnesium 2.7 mg/dL (1.6-2.3) H 04/21/24 10:28 04/22/24 03:57 04/22/24 07:19 Assessment and Plan Assessment: 1. Hyperkalemia, 2/2 to MAYRA and use of bactrim, continues to trend down since admission, no met. acidosis 2. MAYRA, in the setting of CKD stage IIIb, ATN from low BP, volume depletion, hyaline casts noted on UA 3. Respiratory acidosis 4. Pyuria, need to r/o UTI Plan: Continue NS 75 cc/h Continue NovoLog - cont. off of bactrim - d/c amlodipine and hydralazineas BP is low. - check urine culture Follow-up labs in the a.m. - avoid nephrotoxic agents Thank you for the consultation. We will continue to follow the patient. Patient is seen and examined with the resident. Agree with resident's findings, assessment and plan.
--- NOTE | 2024-04-22 12:32 | P.CRDCN ---
History of Present Illness History of present illness: HISTORY OF PRESENT ILLNESS: This is a 84-year-old female with a past medical history significant for congestive heart failure, DVT, hypertension, and chronic kidney disease. Patient does not follow with a scientific illustrator. We have been asked to see the patient in consultation for CHF. Patient examined at the bedside in the emergency room. Patient initially presented to hospital chief complaint of shortness of breath. She denied having any chest pain or pressure. Patient was found to be in CHF. Additionally she was found to have hyperkalemia and worsening kidney function. Patient's initial EKG revealed junctional rhythm. Bedside telemetry reveals sinus mechanism. DIAGNOSTICS: - EKG reveals junctional rhythm - Chest xray correlate for CHF with pulmonary vascular congestion. Small to moderate left pleural effusion with adjacent atelectasis and/or consolidation. - Laboratory data: WBC 8.3. Hemoglobin 9.6. Platelet count 245. Sodium 138. Potassium 5.5. BUN 63. Creatinine 2.44. Troponin negative x 1. proBNP 7660. - Current home cardiac medications include hydralazine 25 mg 3 times a day, amlodipine 5 mg daily, Demadex 20 mg twice a day, midodrine 5 mg 3 times a day, Eliquis 5 mg twice a day - Most recent echocardiogram obtained in March 2023 revealed ejection fraction 60 to 65%, mild pulm hypertension, aortic sclerosis without any stenosis, and mild TR - Cardiac catheterization history: Unknown REVIEW OF SYSTEMS: At the time of my exam: CONSTITUTIONAL: Denies fever or chills. HEENT: Denies blurred vision, vision changes, or eye pain. Denies hemoptysis CARDIOVASCULAR: Denies chest pain. Denies orthopnea. Denies PND. Denies palpitations RESPIRATORY: Denies shortness of breath. GASTROINTESTINAL: Denies abdominal pain. Denies nausea or vomiting. HEMATOLOGIC: Denies bleeding disorders. GENITOURINARY: Denies any blood in urine. SKIN: Denies pruitis. Denies rash. PHYSICAL EXAM: VITAL SIGNS: Reviewed. GENERAL: Well-developed in no acute distress. HEENT: Head is normocephalic. Pupils are equal, round. Sclerae anicteric. Mucous membranes of the mouth are moist. Neck supple. No JVD or thyromegaly LUNGS: Respirations even and unlabored. Lungs diminished on the left HEART: Regular rate and rhythm. S1 and S2 heard. Systolic murmur noted ABDOMEN: Soft. Nondistended. Nontender. EXTREMITIES: Normal range of motion. No clubbing or cyanosis. Peripheral pulses intact. Mild bilateral lower extremity edema with chronic skin discoloration and scaly dry patches NEUROLOGIC: Awake and alert. Oriented x 3. ASSESSMENT: Acute on chronic heart failure with preserved EF, 60-65% in 2022 Small to moderate left pleural effusion Junctional rhythm, likely secondary to hyperkalemia, since resolved, maintaining sinus mechanism Hyperkalemia, 7.0 Acute on chronic kidney disease History of DVT, on Eliquis outpatient Recent diagnosis of UTI, on Bactrim outpatient Chronic indwelling urinary catheter History of bowel resection with ostomy History of left femur fracture, bedridden at baseline since 10/2023 PLAN: Obtain 2D echo to assess cardiac structure and function Resume home cardiac medications. Amlodipine and hydralazine on hold secondary to soft blood pressures. Continue anticoagulation with Eliquis Monitor kidney function Diuretic management per nephrology. Currently off diuretics. Receiving IV fluids at 75 cc an hour Continue telemetry monitoring Further recommendations pending patient course Nurse practitioner note has been reviewed by physician. Signing provider agrees with the documented findings, assessment, and plan of care documented by BIOLOGICAL SCIENCES PROFESSOR as a scribe. 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, VRE Date of last positivie culture/infection: 10/30/23 MRSA and VRE MDRO Source:: Left Heel-VRE; Left Leg-MRSA Past Surgical History: Appendectomy, Section, Cholecystectomy, Heart Catheterization, Hysterectomy Additional Past Surgical History / Comment(s): pericardial window, surgery mir eyes for glaucoma, cyst removal on abdomen Past Anesthesia/Blood Transfusion Reactions: Blood Transfusion Reaction Additional Past Anesthesia/Blood Transfusion Reaction / Comment(s): reaction to blood transfusion 25-30 yrs ago-"I got red and they pulled it out" Past Psychological History: No Psychological Hx Reported Smoking Status: Former smoker Past Alcohol Use History: None Reported Past Drug Use History: None Reported - Past Family History Father Family Medical History: Cancer Brother(s) Family Medical History: Cancer Medications and Allergies Home Medications Medication Instructions Recorded Confirmed Type Apixaban [Eliquis] 5 mg PO BID 04/17/23 04/21/24 History Famotidine [Pepcid] 20 mg PO DAILY 10/30/23 04/21/24 History Glimepiride [Amaryl] 1 mg PO DAILY 10/30/23 04/21/24 History amLODIPine [Norvasc] 5 mg PO DAILY 10/30/23 04/21/24 History Gabapentin [Neurontin] 100 mg PO TID #9 cap 11/08/23 04/21/24 Rx HYDROcodone/APAP 10-325MG [[place] 1 tab PO Q4HR PRN #18 tab 11/08/23 04/21/24 Rx 10-325] Ascorbic Acid [Vitamin C] 500 mg PO BID 04/21/24 04/21/24 History Buprenorphine [Butrans 7.5 MCG/HR] 1 patch TRANSDERM Q7D 04/21/24 04/21/24 History Collagenase [Santyl Ointment] 1 applic TOPICAL DAILY 04/21/24 04/21/24 History Diclofenac Sodium Gel [Voltaren 1% 1 applic TOPICAL BID 04/21/24 04/21/24 History Gel] EPINEPHrine (Auto Inject) [Epipen] 0.3 mg IM ONCE PRN 04/21/24 04/21/24 History Ferrous Sulfate [Feosol] 325 mg PO DAILY 04/21/24 04/21/24 History Lidocaine 4% [place] 1 - 2 spray TOPICAL BID PRN 04/21/24 04/21/24 History Miconazole Nitrate [Miconazole 1 applic TOPICAL BID 04/21/24 04/21/24 History Nitrate 2%] Midodrine [ProAmatine] 5 mg PO TID 04/21/24 04/21/24 History Nystatin 100,000 Unit/gm Powd 1 applic TOPICAL BID 04/21/24 04/21/24 History [Mycostatin Powder] Omeprazole [PriLOSEC] 20 mg PO DAILY 04/21/24 04/21/24 History Sulfamethox-Tmp 800-160Mg [Bactrim 1 tab PO Q12HR 04/21/24 04/21/24 History DS 800-160 mg] Torsemide [Demadex] 20 mg PO BID 09/15/24 09/15/24 History hydrALAZINE HCL [Apresoline] 25 mg PO TID 04/21/24 04/21/24 History Allergies Allergy/AdvReac Type Severity Reaction Status Date / Time cefepime Allergy Anaphylaxis Verified 04/21/24 15:19 latex Allergy Rash/red Verified 04/21/24 15:19 skin Penicillins Allergy Rash/Hives Verified 04/21/24 15:19 Physical Exam Vitals: Vital Signs Temp Pulse Resp BP Pulse Ox 04/22/24 08:00 75 20 104/47 97 04/22/24 02:00 72 18 114/52 97 04/22/24 01:04 65 20 114/52 98 04/21/24 18:36 54 L 18 91/46 99 04/21/24 18:00 98 F 56 L 18 103/53 100 04/21/24 17:43 60 18 137/55 99 04/21/24 15:26 56 L 18 95/47 100 04/21/24 13:52 59 L 18 99/82 99 04/21/24 12:42 72 18 118/36 98 04/21/24 12:00 60 04/21/24 11:48 57 L 04/21/24 11:28 98 F 54 L 18 95/35 99 Intake and Output 04/21/24 04/22/24 04/22/24 22:59 06:59 14:59 Output Total 422 Balance -422 Output: Urine 350 Post Void Residual 72 Results 04/22/24 03:57 04/22/24 07:19 Cardiac Enzymes 04/21/24 04/21/24 04/22/24 Range/Units 10:28 10:28 00:58 AST 21 21 (14-36) U/L Troponin I <0.012 (0.000-0.034) ng/mL 04/22/24 Range/Units 07:19 AST 21 (14-36) U/L Troponin I (0.000-0.034) ng/mL Coagulation 04/21/24 Range/Units 10:28 PT 10.8 (10.0-12.5) sec APTT 27.2 (22.0-30.0) sec CBC 04/21/24 04/22/24 Range/Units 10:28 03:57 WBC 9.0 8.3 (3.8-10.6) k/uL RBC 4.28 3.61 L (3.80-5.40) m/uL Hgb 11.0 L 9.6 L (11.4-16.0) gm/dL Hct 38.5 32.0 L (34.0-46.0) % Plt Count 312 245 (150-450) k/uL Comprehensive Metabolic Panel 04/21/24 04/21/24 04/21/24 Range/Units 10:28 11:39 14:14 Sodium 137 (137-145) mmol/L Potassium 6.7 H* 6.9 H* 6.0 H (3.5-5.1) mmol/L Chloride 98 (98-107) mmol/L Carbon Dioxide 25 (22-30) mmol/L BUN 61 H (7-17) mg/dL Creatinine 2.46 H (0.52-1.04) mg/dL Glucose 138 H (74-99) mg/dL Calcium 8.4 (8.4-10.2) mg/dL AST 21 (14-36) U/L ALT 8 (4-34) U/L Alkaline Phosphatase 112 (38-126) U/L Total Protein 7.0 (6.3-8.2) g/dL Albumin 3.7 (3.5-5.0) g/dL 04/21/24 04/22/24 04/22/24 Range/Units 18:30 00:58 03:57 Sodium 135 L 135 L (137-145) mmol/L Potassium 5.8 H 7.0 H* 5.7 H (3.5-5.1) mmol/L Chloride 98 96 L (98-107) mmol/L Carbon Dioxide 28 30 (22-30) mmol/L BUN 67 H 65 H (7-17) mg/dL Creatinine 2.40 H 2.51 H (0.52-1.04) mg/dL Glucose 88 73 L (74-99) mg/dL Calcium 8.0 L 8.1 L (8.4-10.2) mg/dL AST 21 (14-36) U/L ALT 7 (4-34) U/L Alkaline Phosphatase 82 (38-126) U/L Total Protein 5.9 L (6.3-8.2) g/dL Albumin 3.0 L (3.5-5.0) g/dL 04/22/24 04/22/24 Range/Units 03:57 07:19 Sodium 138 (137-145) mmol/L Potassium 5.6 H 5.5 H (3.5-5.1) mmol/L Chloride 101 (98-107) mmol/L Carbon Dioxide 29 (22-30) mmol/L BUN 63 H (7-17) mg/dL Creatinine 2.44 H (0.52-1.04) mg/dL Glucose 78 (74-99) mg/dL Calcium 8.0 L (8.4-10.2) mg/dL AST 21 (14-36) U/L ALT 7 (4-34) U/L Alkaline Phosphatase 96 (38-126) U/L Total Protein 5.9 L (6.3-8.2) g/dL Albumin 3.1 L (3.5-5.0) g/dL Current Medications Generic Name Dose Route Start Last Admin Trade Name Freq PRN Reason Stop Dose Admin Hydrocodone Bitart/Acetaminophen 1 each 04/21/24 16:43 Hydrocodone/Apap 10-325mg 1 Each Tab PO Q4HR PRN Pain Amlodipine Besylate 5 mg 04/22/24 09:00 04/22/24 08:13 Amlodipine 5 Mg Tab PO Not Given DAILY JASMEET Apixaban 2.5 mg 04/21/24 21:00 04/22/24 08:51 Apixaban 2.5 Mg Tablet PO 2.5 mg BID JASMEET Administration Protocol Ascorbic Acid 500 mg 04/21/24 21:00 04/22/24 08:50 Ascorbic Acid 500 Mg Tab PO 500 mg BID JASMEET Administration Famotidine 20 mg 04/22/24 09:00 04/22/24 08:50 Famotidine 20 Mg Tab PO 20 mg DAILY JASMEET Administration Ferrous Sulfate 325 mg 04/22/24 09:00 04/22/24 08:50 Ferrous Sulfate 325 Mg Tab PO 325 mg DAILY JASMEET Administration Gabapentin 100 mg 04/21/24 22:00 04/22/24 08:50 Gabapentin 100 Mg Cap PO 100 mg TID JASMEET Administration Hydralazine HCl 25 mg 04/21/24 22:00 04/22/24 08:14 Hydralazine Hcl 25 Mg Tab PO Not Given TID JASMEET Sodium Chloride 1,000 mls @ 75 mls/hr 04/21/24 14:45 04/22/24 05:19 Saline 0.9% IV 75 mls/hr .[id number] JASMEET Administration Ceftriaxone Sodium 1 gm/ 50 mls @ 100 mls/hr 04/21/24 17:00 04/22/24 08:51 Sodium Chloride IVPB 100 mls/hr Q24HR JASMEET Administration Protocol Insulin Aspart 0 unit 04/21/24 17:30 04/22/24 08:13 Insulin Aspart (Novolog) 100 Unit/Ml Vial SQ 04/28/24 17:29 Not Given ACHS JASMEET Protocol Midodrine 5 mg 04/21/24 17:30 04/22/24 08:50 Midodrine 5 Mg Tab PO 5 mg AC-TID JASMEET Administration Naloxone HCl 0.2 mg 04/21/24 14:39 Naloxone 0.4 Mg/Ml 1 Ml Vial IV Q2M PRN Opioid Reversal Non-Formulary Medication 1 patch 04/22/24 09:00 04/22/24 08:51 Buprenorphine [Butrans 7.5 Mcg/Hr] TRANSDERM Not Given Q7D JASMEET Pantoprazole Sodium 40 mg 04/22/24 07:30 04/22/24 08:50 Pantoprazole 40 Mg Tablet PO 40 mg [id number] JASMEET Administration Intake and Output 04/21/24 04/22/24 04/22/24 22:59 06:59 14:59 Output Total 422 Balance -422 Output: Urine 350 Post Void Residual 72 04/22/24 03:57 04/22/24 07:19
--- NOTE | 2024-04-22 13:44 | P.PN ---
Subjective Progress Note Date: 04/22/24 84-year-old female multiple comorbidities presents to the emergency department with dyspnea upon waking. Patient has multiple comorbidities. States that she feels short of breath. She is a poor historian. She denies any pain. Denies any fever, chills or night sweats. She does report a cough. Patient arrives from home. Patient is sleepy and not able to provide much history; family is not available at bedside Blood work reveals WBC of 9.2, hemoglobin of 11, platelet count of 312, sodium 137, potassium 6.7, BUNs/creatinine of 61/2.46, magnesium elevated at 2.7, BNP of 7660, lactic acid of 1.8, troponin less than 0.012, influenza, RSV and COVID- 19 PCR is negative. UA is positive for leukocyte esterase, WBCs and bacteria EKG strangely shows no P waves and is bradycardic. Laboratory evaluation obtained. CBC and coag panel is negative. Metabolic panel shows potassium 6.7 that elevated renal function. Urinalysis shows greater than 182 white blood cells. Viral testing negative. Chest x-ray shows heart failure. Patient well- appearing from respiratory standpoint. Patient given hyperkalemia cocktail. 04/22. Patient seen and examined. Blood work done this morning showed WBC 8.3, hemoglobin 9.6, sodium 135, potassium 5.6, BUN 65, creatinine 2.51. Denies any shortness of breath. REVIEW OF SYSTEMS: CONSTITUTIONAL: No fever, no malaise,. CARDIOVASCULAR: No chest pain, no palpitations, no syncope. PULMONARY: No shortness of breath, no cough, GASTROINTESTINAL: No diarrhea, no nausea, no vomiting, no abdominal pain. NEUROLOGICAL: No headaches, no weakness, PHYSICAL EXAMINATION: GENERAL: The patient is alert and oriented x3, not in any acute distress. Well developed, well nourished. HEENT: Pupils are round and equally reacting to light. EOMI. No scleral icterus. No conjunctival pallor. Normocephalic, atraumatic. No pharyngeal erythema. No t hyromegaly. CARDIOVASCULAR: S1 and S2 present. No murmurs, rubs, or gallops. PULMONARY: Chest is clear to auscultation, no wheezing or crackles. ABDOMEN: Soft, nontender, nondistended, normoactive bowel sounds. No palpable organomegaly. MUSCULOSKELETAL: No joint swelling or deformity. EXTREMITIES: Chronic lower extremity venous stasis changes and scaly pigmentation NEUROLOGICAL: Gross neurological examination did not reveal any focal deficits. SKIN: No rashes. Assessment and plan Acute on chronic diastolic CHF Hyperkalemia Acute kidney injury Left pleural effusion UTI Hypertension Diabetes mellitus History of hyperlipidemia History of bowel resection and ostomy History of left femur fracture, currently bedridden since October, Chronic bilateral lower extremity swelling and wounds History of DVT, anticoagulated on Eliquis Monitor vital signs Monitor CBC Monitor CMP Continue telemetry monitoring Avoid nephrotoxic agents Low potassium diet Strict I's and O's, daily weights Hyperkalemia protocol initiated Continue IV Rocephin Continue Eliquis Continue amlodipine Nephrology following Cardiology following Consulted ID Labs and medication were reviewed.. Continue same treatment. Continue with symptomatic treatment. Resume home medication. Monitor labs and vitals. DVT and GI prophylaxis. Further recommendations as per clinical course of the patient Dictation was produced using [employer] dictation software. please excuse any grammatical, word or spelling errors. Objective - Vital Signs Vital signs: Vital Signs Temp 98 F 04/21/24 18:00 Pulse 75 04/22/24 08:00 Resp 20 04/22/24 08:00 BP 104/47 04/22/24 08:00 Pulse Ox 97 04/22/24 08:00 FiO2 Intake & Output 04/21/24 04/22/24 04/22/24 18:59 06:59 18:59 Output Total 422 Balance -422 Weight 79.379 kg Output: Urine 350 Post Void Residual 72 - Labs CBC & Chem 7: 04/22/24 03:57 04/22/24 07:19 Labs: Abnormal Lab Results - Last 24 Hours (Table) 04/21/24 04/21/24 04/21/24 Range/Units 10:28 10:28 10:28 RBC (3.80-5.40) m/uL Hgb 11.0 L (11.4-16.0) gm/dL Hct (34.0-46.0) % MCHC 28.7 L (31.0-37.0) g/dL RDW 18.3 H (11.5-15.5) % VBG pH 7.27 L (7.31-7.41) VBG pCO2 60 H (37-51) mmHg Sodium (137-145) mmol/L Potassium 6.7 H* (3.5-5.1) mmol/L Chloride (98-107) mmol/L BUN 61 H (7-17) mg/dL Creatinine 2.46 H (0.52-1.04) mg/dL Glucose 138 H (74-99) mg/dL POC Glucose (mg/dL) (70-110) mg/dL Calcium (8.4-10.2) mg/dL Magnesium 2.7 H (1.6-2.3) mg/dL Total Protein (6.3-8.2) g/dL Albumin (3.5-5.0) g/dL Urine Appearance (Clear) Urine Protein (Negative) Urine Blood (Negative) Ur Leukocyte Esterase (Negative) Urine RBC (0-5) /hpf Urine WBC (0-5) /hpf Amorphous Sediment (None) /hpf Urine Bacteria (None) /hpf Hyaline Casts (0-2) /lpf Urine Mucus (None) /hpf 04/21/24 04/21/24 04/21/24 Range/Units 11:39 11:39 11:52 RBC (3.80-5.40) m/uL Hgb (11.4-16.0) gm/dL Hct (34.0-46.0) % MCHC (31.0-37.0) g/dL RDW (11.5-15.5) % VBG pH (7.31-7.41) VBG pCO2 (37-51) mmHg Sodium (137-145) mmol/L Potassium 6.9 H* (3.5-5.1) mmol/L Chloride (98-107) mmol/L BUN (7-17) mg/dL Creatinine (0.52-1.04) mg/dL Glucose (74-99) mg/dL POC Glucose (mg/dL) 140 H (70-110) mg/dL Calcium (8.4-10.2) mg/dL Magnesium (1.6-2.3) mg/dL Total Protein (6.3-8.2) g/dL Albumin (3.5-5.0) g/dL Urine Appearance Turbid H (Clear) Urine Protein 1+ H (Negative) Urine Blood Small H (Negative) Ur Leukocyte Esterase Large H (Negative) Urine RBC 11 H (0-5) /hpf Urine WBC >182 H (0-5) /hpf Amorphous Sediment Moderate H (None) /hpf Urine Bacteria Few H (None) /hpf Hyaline Casts 36 H (0-2) /lpf Urine Mucus Moderate H (None) /hpf 04/21/24 04/21/24 04/21/24 Range/Units 14:14 15:32 17:39 RBC (3.80-5.40) m/uL Hgb (11.4-16.0) gm/dL Hct (34.0-46.0) % MCHC (31.0-37.0) g/dL RDW (11.5-15.5) % VBG pH (7.31-7.41) VBG pCO2 (37-51) mmHg Sodium (137-145) mmol/L Potassium 6.0 H (3.5-5.1) mmol/L Chloride (98-107) mmol/L BUN (7-17) mg/dL Creatinine (0.52-1.04) mg/dL Glucose (74-99) mg/dL POC Glucose (mg/dL) 143 H 144 H (70-110) mg/dL Calcium (8.4-10.2) mg/dL Magnesium (1.6-2.3) mg/dL Total Protein (6.3-8.2) g/dL Albumin (3.5-5.0) g/dL Urine Appearance (Clear) Urine Protein (Negative) Urine Blood (Negative) Ur Leukocyte Esterase (Negative) Urine RBC (0-5) /hpf Urine WBC (0-5) /hpf Amorphous Sediment (None) /hpf Urine Bacteria (None) /hpf Hyaline Casts (0-2) /lpf Urine Mucus (None) /hpf 04/21/24 04/21/24 04/22/24 Range/Units 18:30 22:07 00:58 RBC (3.80-5.40) m/uL Hgb (11.4-16.0) gm/dL Hct (34.0-46.0) % MCHC (31.0-37.0) g/dL RDW (11.5-15.5) % VBG pH (7.31-7.41) VBG pCO2 (37-51) mmHg Sodium 135 L (137-145) mmol/L Potassium 5.8 H 7.0 H* (3.5-5.1) mmol/L Chloride (98-107) mmol/L BUN 67 H (7-17) mg/dL Creatinine 2.40 H (0.52-1.04) mg/dL Glucose (74-99) mg/dL POC Glucose (mg/dL) 181 H (70-110) mg/dL Calcium 8.0 L (8.4-10.2) mg/dL Magnesium (1.6-2.3) mg/dL Total Protein 5.9 L (6.3-8.2) g/dL Albumin 3.0 L (3.5-5.0) g/dL Urine Appearance (Clear) Urine Protein (Negative) Urine Blood (Negative) Ur Leukocyte Esterase (Negative) Urine RBC (0-5) /hpf Urine WBC (0-5) /hpf Amorphous Sediment (None) /hpf Urine Bacteria (None) /hpf Hyaline Casts (0-2) /lpf Urine Mucus (None) /hpf 04/22/24 04/22/24 04/22/24 Range/Units 03:57 03:57 03:57 RBC 3.61 L (3.80-5.40) m/uL Hgb 9.6 L (11.4-16.0) gm/dL Hct 32.0 L (34.0-46.0) % MCHC 29.9 L (31.0-37.0) g/dL RDW 18.5 H (11.5-15.5) % VBG pH (7.31-7.41) VBG pCO2 (37-51) mmHg Sodium 135 L (137-145) mmol/L Potassium 5.7 H 5.6 H (3.5-5.1) mmol/L Chloride 96 L (98-107) mmol/L BUN 65 H (7-17) mg/dL Creatinine 2.51 H (0.52-1.04) mg/dL Glucose 73 L (74-99) mg/dL POC Glucose (mg/dL) (70-110) mg/dL Calcium 8.1 L (8.4-10.2) mg/dL Magnesium (1.6-2.3) mg/dL Total Protein (6.3-8.2) g/dL Albumin (3.5-5.0) g/dL Urine Appearance (Clear) Urine Protein (Negative) Urine Blood (Negative) Ur Leukocyte Esterase (Negative) Urine RBC (0-5) /hpf Urine WBC (0-5) /hpf Amorphous Sediment (None) /hpf Urine Bacteria (None) /hpf Hyaline Casts (0-2) /lpf Urine Mucus (None) /hpf 04/22/24 Range/Units 07:19 RBC (3.80-5.40) m/uL Hgb (11.4-16.0) gm/dL Hct (34.0-46.0) % MCHC (31.0-37.0) g/dL RDW (11.5-15.5) % VBG pH (7.31-7.41) VBG pCO2 (37-51) mmHg Sodium (137-145) mmol/L Potassium 5.5 H (3.5-5.1) mmol/L Chloride (98-107) mmol/L BUN 63 H (7-17) mg/dL Creatinine 2.44 H (0.52-1.04) mg/dL Glucose (74-99) mg/dL POC Glucose (mg/dL) (70-110) mg/dL Calcium 8.0 L (8.4-10.2) mg/dL Magnesium (1.6-2.3) mg/dL Total Protein 5.9 L (6.3-8.2) g/dL Albumin 3.1 L (3.5-5.0) g/dL Urine Appearance (Clear) Urine Protein (Negative) Urine Blood (Negative) Ur Leukocyte Esterase (Negative) Urine RBC (0-5) /hpf Urine WBC (0-5) /hpf Amorphous Sediment (None) /hpf Urine Bacteria (None) /hpf Hyaline Casts (0-2) /lpf Urine Mucus (None) /hpf
[2024-04-22 16:44] LABS: Glucose,Whole Blood 121 mg/dL (70-110)
[2024-04-22] MEDS: FUROSEMIDE 10 MG/ML 4 ML VIAL IV STA (18:19)
--- NOTE | 2024-04-22 18:22 | CA ---
Transthoracic Echo Report Name: Eden Lyons Age: 84 Gender: F : 1940 Exam Date: 04/22/2024 13:13 Exam Location: [facility] Ht (in): 67 Wt (lb): 175 Ordering Physician: Sindy Keane Attending/Referring Phys: [id number], Lakhwinder Scientific Associate Mariposa Ribeiro RDCS Procedure CPT: Indications: LV function, +SM, CHF Cardiac Hx: Technical Quality: Good Contrast 1: Total Dose (mL): Contrast 2: Total Dose (mL): MEASUREMENTS (Male / Female) Normal Values 2D ECHO LV Diastolic Diameter PLAX 4.1 cm 4.2 - 5.9 / 3.9 - 5.3 cm LV Systolic Diameter PLAX 2.6 cm IVS Diastolic Thickness 1.1 cm 0.6 - 1.0 / 0.6 - 0.9 cm LVPW Diastolic Thickness 1.1 cm 0.6 - 1.0 / 0.6 - 0.9 cm LV Relative Wall Thickness 0.5 LVOT Diameter 2.0 cm LV Diastolic Volume MOD BP 86.2 cm??? 67 - 155 / 56 - 104 cm??? LV Systolic Volume MOD BP 27.4 cm??? 22 - 58 / 19 - 49 cm??? LV Ejection Fraction MOD BP 68.2 % >= 55 % LV Cardiac Index MOD BP 2466.6 cm???/min???m??? LV Diastolic Volume MOD 4C 101.4 cm??? LV Systolic Volume MOD 4C 32.0 cm??? LV Ejection Fraction MOD 4C 68.4 % LV Cardiac Index MOD 4C 2911.5 cm???/min???m??? LV Diastolic Length 4C 8.3 cm LV Systolic Length 4C 6.6 cm LV Diastolic Volume MOD 2C 69.2 cm??? LV Systolic Volume MOD 2C 22.6 cm??? LV Ejection Fraction MOD 2C 67.3 % LV Cardiac Index MOD 2C 1953.1 cm???/min???m??? LV Diastolic Length 2C 7.7 cm LV Systolic Length 2C 6.0 cm LA Volume 62.2 cm??? 18 - 58 / 22 - 52 cm??? LA Volume Index 31.8 cm???/m??? 16 - 28 cm???/m??? Ascending Aorta Diameter 3.4 cm DOPPLER AV Peak Velocity 266.9 cm/s AV Peak Gradient 28.5 mmHg AV Mean Velocity 180.6 cm/s AV Mean Gradient 15.0 mmHg AV Velocity Time Integral 53.6 cm LVOT Peak Velocity 116.0 cm/s LVOT Peak Gradient 5.4 mmHg LVOT Velocity Time Integral 25.4 cm LVOT Stroke Volume 76.8 cm??? LVOT Stroke Volume Index 40.2 ml/m??? LVOT Cardiac Index 3224.4 cm???/min???m??? AV Area Cont Eq vti 1.4 cm??? AV Area Cont Eq pk 1.3 cm??? MV Peak Velocity 130.4 cm/s MV Peak Gradient 6.8 mmHg MV Mean Velocity 95.3 cm/s MV Mean Gradient 3.9 mmHg MV Velocity Time Integral 31.4 cm MV Area PHT 2.6 cm??? Mitral E Point Velocity 87.8 cm/s Mitral A Point Velocity 106.1 cm/s Mitral E to A Ratio 0.8 MV Deceleration Time 297.3 ms TR Peak Velocity 298.6 cm/s TR Peak Gradient 35.7 mmHg Right Atrial Pressure 10.0 mmHg Pulmonary Artery Systolic Pressu 45.7 mmHg Right Ventricular Systolic Press 45.7 mmHg PV Peak Velocity 140.5 cm/s PV Peak Gradient 7.9 mmHg FINDINGS Left Ventricle Left ventricular ejection fraction is estimated at 65-70 %. Mildly increased septal wall thickness. Mildly increased posterior wall thickness. Hyperdynamic left ventricular systolic function. Left ventricular cavity size normal. No obvious regional wall motion abnormalities. Mid cavitary gradient 43mmHg at rest. Right Ventricle Normal right ventricular size and function. Moderate pulmonary hypertension. Right ventricular systolic pressure estimated at 46 mm hg. Right Atrium Normal right atrial size. Left Atrium Mildly increased left atrial volume. Mildly increased left atrial area. Mitral Valve Mitral valve thickened. Mitral annular calcification. No evidence for mitral valve prolapse. Mild mitral stenosis. Trace to mild mitral regurgitation. Aortic Valve Trileaflet aortic valve. Diffuse thickening of the aortic valve cusps with reduced excursion. Mild aortic stenosis. No aortic regurgitation. Tricuspid Valve Structurally normal tricuspid valve. No tricuspid stenosis. [id number] tricuspid regurgitation. Pulmonic Valve Pulmonic valve not well visualized. No pulmonic stenosis. No pulmonic regurgitation. Pericardium No pericardial effusion. Aorta Normal size aortic root and proximal ascending aorta. CONCLUSIONS Diagnosis congestive heart failure LVH with hyperdynamic systolic function with the mid cavity gradient on account of ejection fraction of greater than 65% and thick papillary muscles Moderate pulmonary hypertension Previewed by: Dr. Rosendo Ralph MD (Electronically Signed) Final Date: 22 April 2024 18:20
[2024-04-22 19:57] LABS: Glucose,Whole Blood 143 mg/dL (70-110)
[2024-04-23] MEDS: ALBUTEROL NEBULIZED 2.5 MG/3 ML INHALATION PRN (04:23)
[2024-04-23 06:17] LABS: Glucose,Whole Blood 134 mg/dL (70-110)
[2024-04-23 07:19] LABS: Anisocytosis Slight; Basophils % (A) 0 %; Eosinophils % (A) 14 %; HCT 31.4 % (34.0-46.0); HGB 9.4 gm/dL (11.4-16.0); Hypochromasia Marked; Lymphocytes # (A) 0.9 k/uL (1.0-4.8); Lymphocytes % (A) 12 %; MCH 27.1 pg (25.0-35.0); MCHC 29.9 g/dL (31.0-37.0); MCV 90.7 fL (80.0-100.0); Mean Platelet Volume 7.2; Monocytes # (A) 0.5 k/uL (0-1.0); Monocytes % (A) 7 %; Neutrophils # (A) 4.7 k/uL (1.3-7.7); Neutrophils % (A) 64 %; Platelet Count 232 k/uL (150-450); RBC 3.46 m/uL (3.80-5.40); RDW 18.5 % (11.5-15.5); WBC 7.3 k/uL (3.8-10.6)
[2024-04-23 07:28] LABS: ALT 6 U/L (4-34); AST 22 U/L (14-36); African American GFR (CKD) 24 (>60 ml/min/1.73 sqM); Alkaline Phosphatase 95 U/L (38-126); Anion Gap 9 mmol/L; Blood Urea Nitrogen 57 mg/dL (7-17); Carbon Dioxide 28 mmol/L (22-30); Chloride 100 mmol/L (98-107); Glucose 107 mg/dL (74-99); Non-African American GFR(CKD) 21 (>60 ml/min/1.73 sqM); Potassium 5.1 mmol/L (3.5-5.1); Sodium 137 mmol/L (137-145); Total Bilirubin 0.3 mg/dL (0.2-1.3); Total Protein 5.9 g/dL (6.3-8.2)
--- NOTE | 2024-04-23 08:06 | P.CONS ---
History of Present Illness - Reason for Consult Consult date: 04/22/24 Urinary tract infection Requesting physician: Lul Moe - Chief Complaint Shortness of breath x few days - History of Present Illness Patient is a 84-year-old female with a past medical history significant for diabetes mellitus hypertension hyperlipidemia renal disorder, bilateral lower extremity ulcers as well as urinary retention requiring chronic indwelling Craven catheter that apparently was changed on Monday that is 2 days before presentation to the hospital patient was also being treated in the outpatient setting for UTI with Bactrim DS presenting to the hospital with shortness of breath on the day of presentation to the hospital patient is mostly bedbound woke up noticed to be more short of breath denies any chest pain cough or sputum production patient denies high-grade fever or any chills and no fever have been recorded on presentation to the hospital patient was not tachycardic or hypotensive currently on 2 L nasal cannula oxygen O2 sats on room air not documented patient did have a white count of 8.3 BUN and creatinine has been mildly elevated also noticed to have elevated potassium of 5.8 and nephrology is following the patient patient did have a positive UA with large leukocyte esterase more than 1-2 WBC patient was started on Rocephin infectious disease was consulted for further management, patient did have negative influenza RSV and COVID testing with a chest x-ray correlate for CHF with pulmonary vascular congestion small to moderate left effusion abdominal bladder ultrasound changes of bilateral chronic medical renal disease no hydronephrosis, as far as urinary symptoms patient did have routine Craven catheter change last Monday has been complaining of some suprapubic discomfort mostly dull aching mild in intensity without any radiation denies having any leakage around the Craven catheter or flank pain did have some nausea but no vomiting Review of Systems Positive point and negatives has been mentioned in the HPI, complete review of systems was performed and all other systems are negative 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; Left Leg-MRSA Past Surgical History: Appendectomy, Section, Cholecystectomy, Heart Catheterization, Hysterectomy Additional Past Surgical History / Comment(s): pericardial window, surgery mir eyes for glaucoma, cyst removal on abdomen Past Anesthesia/Blood Transfusion Reactions: Blood Transfusion Reaction Additional Past Anesthesia/Blood Transfusion Reaction / Comm: reaction to blood transfusion 25-30 yrs ago-"I got red and they pulled it out" Past Psychological History: No Psychological Hx Reported Smoking Status: Former smoker Past Alcohol Use History: None Reported Past Drug Use History: None Reported - Past Family History Father Family Medical History: Cancer Brother(s) Family Medical History: Cancer Medications and Allergies Home Medications Medication Instructions Recorded Confirmed Type Apixaban [Eliquis] 5 mg PO BID 04/17/23 04/21/24 History Famotidine [Pepcid] 20 mg PO DAILY 10/30/23 04/21/24 History Glimepiride [Amaryl] 1 mg PO DAILY 10/30/23 04/21/24 History amLODIPine [Norvasc] 5 mg PO DAILY 10/30/23 04/21/24 History Gabapentin [Neurontin] 100 mg PO TID #9 cap 11/08/23 04/21/24 Rx HYDROcodone/APAP 10-325MG [Frankford 1 tab PO Q4HR PRN #18 tab 11/08/23 04/21/24 Rx 10-325] Ascorbic Acid [Vitamin C] 500 mg PO BID 04/21/24 04/21/24 History Buprenorphine [Butrans 7.5 MCG/HR] 1 patch TRANSDERM Q7D 04/21/24 04/21/24 History Collagenase [Santyl Ointment] 1 applic TOPICAL DAILY 04/21/24 04/21/24 History Diclofenac Sodium Gel [Voltaren 1% 1 applic TOPICAL BID 04/21/24 04/21/24 History Gel] EPINEPHrine (Auto Inject) [Epipen] 0.3 mg IM ONCE PRN 04/21/24 04/21/24 History Ferrous Sulfate [Feosol] 325 mg PO DAILY 04/21/24 04/21/24 History Lidocaine 4% Phelan 1 - 2 spray TOPICAL BID PRN 04/21/24 04/21/24 History Miconazole Nitrate [Miconazole 1 applic TOPICAL BID 04/21/24 04/21/24 History Nitrate 2%] Midodrine [ProAmatine] 5 mg PO TID 04/21/24 04/21/24 History Nystatin 100,000 Unit/gm Powd 1 applic TOPICAL BID 04/21/24 04/21/24 History [Mycostatin Powder] Omeprazole [PriLOSEC] 20 mg PO DAILY 04/21/24 04/21/24 History Sulfamethox-Tmp 800-160Mg [Bactrim 1 tab PO Q12HR 04/21/24 04/21/24 History DS 800-160 mg] Torsemide [Demadex] 20 mg PO BID 04/21/24 04/21/24 History hydrALAZINE HCL [Apresoline] 25 mg PO TID 04/21/24 04/21/24 History Allergies Allergy/AdvReac Type Severity Reaction Status Date / Time cefepime Allergy Anaphylaxis Verified 04/21/24 15:19 latex Allergy Rash/red Verified 04/21/24 15:19 skin Penicillins Allergy Rash/Hives Verified 04/21/24 15:19 Physical Exam Vitals: Vital Signs Temp Pulse Resp BP Pulse Ox 04/22/24 08:00 75 20 104/47 97 04/22/24 02:00 72 18 114/52 97 04/22/24 01:04 65 20 114/52 98 04/21/24 18:36 54 L 18 91/46 99 04/21/24 18:00 98 F 56 L 18 103/53 100 04/21/24 17:43 60 18 137/55 99 04/21/24 15:26 56 L 18 95/47 100 04/21/24 13:52 59 L 18 99/82 99 04/21/24 12:42 72 18 118/36 98 04/21/24 12:00 60 04/21/24 11:48 57 L 04/21/24 11:28 98 F 54 L 18 95/35 99 Intake and Output 04/21/24 04/22/24 04/22/24 22:59 06:59 14:59 Output Total 422 Balance -422 Output: Urine 350 Post Void Residual 72 GENERAL DESCRIPTION: Elderly female lying in bed, no distress. No tachypnea or accessory muscle of respiration use. HEENT: Shows Pallor , no scleral icterus. Oral mucous membrane is dry. No pharyngeal erythema or thrush NECK: Trachea central, no thyromegaly. LUNGS: Unlabored breathing. Clear to auscultation anteriorly. No wheeze or crackle. HEART: S1, S2, regular rate and rhythm. No loud murmur ABDOMEN: Soft, no tenderness , guarding or rigidity, no organomegaly EXTREMITIES: Bilateral lower extremity dry scaly skin healed wounds are currently healed SKIN: No rash, no masses palpable. NEUROLOGICAL: The patient is awake, alert, oriented x3, mood and affect normal. Results CBC & Chem 7: 04/23/24 06:52 04/23/24 06:52 Labs: Abnormal Lab Results - Last 24 Hours (Table) 04/21/24 04/21/24 04/21/24 Range/Units 10:28 10:28 10:28 RBC (3.80-5.40) m/uL Hgb 11.0 L (11.4-16.0) gm/dL Hct (34.0-46.0) % MCHC 28.7 L (31.0-37.0) g/dL RDW 18.3 H (11.5-15.5) % VBG pH 7.27 L (7.31-7.41) VBG pCO2 60 H (37-51) mmHg Sodium (137-145) mmol/L Potassium 6.7 H* (3.5-5.1) mmol/L Chloride (98-107) mmol/L BUN 61 H (7-17) mg/dL Creatinine 2.46 H (0.52-1.04) mg/dL Glucose 138 H (74-99) mg/dL POC Glucose (mg/dL) (70-110) mg/dL Calcium (8.4-10.2) mg/dL Magnesium 2.7 H (1.6-2.3) mg/dL Total Protein (6.3-8.2) g/dL Albumin (3.5-5.0) g/dL Urine Appearance (Clear) Urine Protein (Negative) Urine Blood (Negative) Ur Leukocyte Esterase (Negative) Urine RBC (0-5) /hpf Urine WBC (0-5) /hpf Amorphous Sediment (None) /hpf Urine Bacteria (None) /hpf Hyaline Casts (0-2) /lpf Urine Mucus (None) /hpf 04/21/24 04/21/24 04/21/24 Range/Units 11:39 11:39 11:52 RBC (3.80-5.40) m/uL Hgb (11.4-16.0) gm/dL Hct (34.0-46.0) % MCHC (31.0-37.0) g/dL RDW (11.5-15.5) % VBG pH (7.31-7.41) VBG pCO2 (37-51) mmHg Sodium (137-145) mmol/L Potassium 6.9 H* (3.5-5.1) mmol/L Chloride (98-107) mmol/L BUN (7-17) mg/dL Creatinine (0.52-1.04) mg/dL Glucose (74-99) mg/dL POC Glucose (mg/dL) 140 H (70-110) mg/dL Calcium (8.4-10.2) mg/dL Magnesium (1.6-2.3) mg/dL Total Protein (6.3-8.2) g/dL Albumin (3.5-5.0) g/dL Urine Appearance Turbid H (Clear) Urine Protein 1+ H (Negative) Urine Blood Small H (Negative) Ur Leukocyte Esterase Large H (Negative) Urine RBC 11 H (0-5) /hpf Urine WBC >182 H (0-5) /hpf Amorphous Sediment Moderate H (None) /hpf Urine Bacteria Few H (None) /hpf Hyaline Casts 36 H (0-2) /lpf Urine Mucus Moderate H (None) /hpf 04/21/24 04/21/24 04/21/24 Range/Units 14:14 15:32 17:39 RBC (3.80-5.40) m/uL Hgb (11.4-16.0) gm/dL Hct (34.0-46.0) % MCHC (31.0-37.0) g/dL RDW (11.5-15.5) % VBG pH (7.31-7.41) VBG pCO2 (37-51) mmHg Sodium (137-145) mmol/L Potassium 6.0 H (3.5-5.1) mmol/L Chloride (98-107) mmol/L BUN (7-17) mg/dL Creatinine (0.52-1.04) mg/dL Glucose (74-99) mg/dL POC Glucose (mg/dL) 143 H 144 H (70-110) mg/dL Calcium (8.4-10.2) mg/dL Magnesium (1.6-2.3) mg/dL Total Protein (6.3-8.2) g/dL Albumin (3.5-5.0) g/dL Urine Appearance (Clear) Urine Protein (Negative) Urine Blood (Negative) Ur Leukocyte Esterase (Negative) Urine RBC (0-5) /hpf Urine WBC (0-5) /hpf Amorphous Sediment (None) /hpf Urine Bacteria (None) /hpf Hyaline Casts (0-2) /lpf Urine Mucus (None) /hpf 04/21/24 04/21/24 04/22/24 Range/Units 18:30 22:07 00:58 RBC (3.80-5.40) m/uL Hgb (11.4-16.0) gm/dL Hct (34.0-46.0) % MCHC (31.0-37.0) g/dL RDW (11.5-15.5) % VBG pH (7.31-7.41) VBG pCO2 (37-51) mmHg Sodium 135 L (137-145) mmol/L Potassium 5.8 H 7.0 H* (3.5-5.1) mmol/L Chloride (98-107) mmol/L BUN 67 H (7-17) mg/dL Creatinine 2.40 H (0.52-1.04) mg/dL Glucose (74-99) mg/dL POC Glucose (mg/dL) 181 H (70-110) mg/dL Calcium 8.0 L (8.4-10.2) mg/dL Magnesium (1.6-2.3) mg/dL Total Protein 5.9 L (6.3-8.2) g/dL Albumin 3.0 L (3.5-5.0) g/dL Urine Appearance (Clear) Urine Protein (Negative) Urine Blood (Negative) Ur Leukocyte Esterase (Negative) Urine RBC (0-5) /hpf Urine WBC (0-5) /hpf Amorphous Sediment (None) /hpf Urine Bacteria (None) /hpf Hyaline Casts (0-2) /lpf Urine Mucus (None) /hpf 04/22/24 04/22/24 04/22/24 Range/Units 03:57 03:57 03:57 RBC 3.61 L (3.80-5.40) m/uL Hgb 9.6 L (11.4-16.0) gm/dL Hct 32.0 L (34.0-46.0) % MCHC 29.9 L (31.0-37.0) g/dL RDW 18.5 H (11.5-15.5) % VBG pH (7.31-7.41) VBG pCO2 (37-51) mmHg Sodium 135 L (137-145) mmol/L Potassium 5.7 H 5.6 H (3.5-5.1) mmol/L Chloride 96 L (98-107) mmol/L BUN 65 H (7-17) mg/dL Creatinine 2.51 H (0.52-1.04) mg/dL Glucose 73 L (74-99) mg/dL POC Glucose (mg/dL) (70-110) mg/dL Calcium 8.1 L (8.4-10.2) mg/dL Magnesium (1.6-2.3) mg/dL Total Protein (6.3-8.2) g/dL Albumin (3.5-5.0) g/dL Urine Appearance (Clear) Urine Protein (Negative) Urine Blood (Negative) Ur Leukocyte Esterase (Negative) Urine RBC (0-5) /hpf Urine WBC (0-5) /hpf Amorphous Sediment (None) /hpf Urine Bacteria (None) /hpf Hyaline Casts (0-2) /lpf Urine Mucus (None) /hpf 04/22/24 Range/Units 07:19 RBC (3.80-5.40) m/uL Hgb (11.4-16.0) gm/dL Hct (34.0-46.0) % MCHC (31.0-37.0) g/dL RDW (11.5-15.5) % VBG pH (7.31-7.41) VBG pCO2 (37-51) mmHg Sodium (137-145) mmol/L Potassium 5.5 H (3.5-5.1) mmol/L Chloride (98-107) mmol/L BUN 63 H (7-17) mg/dL Creatinine 2.44 H (0.52-1.04) mg/dL Glucose (74-99) mg/dL POC Glucose (mg/dL) (70-110) mg/dL Calcium 8.0 L (8.4-10.2) mg/dL Magnesium (1.6-2.3) mg/dL Total Protein 5.9 L (6.3-8.2) g/dL Albumin 3.1 L (3.5-5.0) g/dL Urine Appearance (Clear) Urine Protein (Negative) Urine Blood (Negative) Ur Leukocyte Esterase (Negative) Urine RBC (0-5) /hpf Urine WBC (0-5) /hpf Amorphous Sediment (None) /hpf Urine Bacteria (None) /hpf Hyaline Casts (0-2) /lpf Urine Mucus (None) /hpf Assessment and Plan (1) Catheter-associated urinary tract infection Current Visit: Yes Status: Acute Code(s): T83.511A - I/I REACT D/T INDWELLING URETHRAL CATHETER, INIT; N39.0 - URINARY TRACT INFECTION, SITE NOT SPECIFIED SNOMED Code(s): 029613848 (2) Allergy to multiple antibiotics Current Visit: No Status: Acute Code(s): Z88.1 - ALLERGY STATUS TO OTHER ANTIBIOTIC AGENTS SNOMED Code(s): 147642168 Plan: 1patient presented to hospital with shortness of breath and this patient noticed to have worsening of her kidney function elevated potassium could be related to Bactrim DS the patient was taking outpatient setting for the UTI, patient did have positive UA suprapubic discomfort a complaint of catheter associated tract infection not entirely excluded. 2patient with multiple antibiotic ALLERGIES that would limit the number of antibiotic safe to use 3patient be started on Rocephin to continue while waiting for the culture to finalize. 4patient did have bilateral lower extremity wound which are currently healed on today's evaluation mostly dry scaly skin will advise moisturizing cream to bilateral lower extremities. We will follow on clinical condition and cultures to further adjust medication if needed Thank you for this consultation we will follow the patient along with you Dictation was produced using [employer] dictation software. please excuse any grammatical, word or spelling errors. Time with Patient: Greater than 30
--- NOTE | 2024-04-23 10:31 | P.PN ---
Subjective Patient seen at bedside. Status post Lasix yesterday evening. 24-hour urine output at 1200 mL Serum creatinine improved from 2.44 to 2.10. Potassium improved from 5.5 to 5.1. Objective - Vital Signs Vital signs: Vital Signs Temp 97.7 F 04/23/24 08:00 Pulse 80 04/23/24 08:49 Resp 14 04/23/24 08:00 BP 133/63 04/23/24 08:00 Pulse Ox 99 04/23/24 08:00 FiO2 Intake & Output 04/22/24 04/23/24 04/23/24 18:59 06:59 18:59 Intake Total 120 180 Output Total 1400 Balance 120 -1400 180 Weight 79.379 kg 85.5 kg Intake: Oral 120 180 Output: Urine 1200 Stool 200 Other: Voiding Method Indwelling Catheter Indwelling Catheter - Exam General: Alert, in no apparent distress. Head: Normocephalic and atraumatic Lungs: Equal air entry with no crackles, wheeze, rhonchi or dullness. Diminished left basilar lung sounds. On 2 L/min nasal cannula. Cardio: S1 and S2 normal with soft systolic murmur, regular rhythm. No extra heart sounds Abdomen: Functional left colostomy, stoma pink, contents of colostomy are a light brown sludge. Active bowel sounds, abdomen is soft, no guarding or rigidity Skin: No rashes Neuro: No focal deficits, tone is normal in all 4 extremities. Extremities: Mostly chronic skin changes with chronic wounds present. No clubbing, or cyanosis. Peripheral pulses are intact. - Labs CBC & Chem 7: 04/23/24 06:52 04/23/24 06:52 Labs: Abnormal Lab Results - Last 24 Hours (Table) 04/22/24 04/22/24 04/22/24 Range/Units 12:08 16:42 19:55 RBC (3.80-5.40) m/uL Hgb (11.4-16.0) gm/dL Hct (34.0-46.0) % MCHC (31.0-37.0) g/dL RDW (11.5-15.5) % Lymphocytes # (1.0-4.8) k/uL Eosinophils # (0-0.7) k/uL BUN (7-17) mg/dL Creatinine (0.52-1.04) mg/dL Glucose (74-99) mg/dL POC Glucose (mg/dL) 122 H 121 H 143 H (70-110) mg/dL Calcium (8.4-10.2) mg/dL Total Protein (6.3-8.2) g/dL Albumin (3.5-5.0) g/dL 04/23/24 04/23/24 04/23/24 Range/Units 06:15 06:52 06:52 RBC 3.46 L (3.80-5.40) m/uL Hgb 9.4 L (11.4-16.0) gm/dL Hct 31.4 L (34.0-46.0) % MCHC 29.9 L (31.0-37.0) g/dL RDW 18.5 H (11.5-15.5) % Lymphocytes # 0.9 L (1.0-4.8) k/uL Eosinophils # 1.0 H (0-0.7) k/uL BUN 57 H (7-17) mg/dL Creatinine 2.10 H (0.52-1.04) mg/dL Glucose 107 H (74-99) mg/dL POC Glucose (mg/dL) 134 H (70-110) mg/dL Calcium 8.0 L (8.4-10.2) mg/dL Total Protein 5.9 L (6.3-8.2) g/dL Albumin 3.0 L (3.5-5.0) g/dL Microbiology - Last 24 Hours (Table) 04/21/24 18:30 Blood Culture - Preliminary Blood Assessment and Plan Assessment: 1. Hyperkalemia, 2/2 to MAYRA and use of bactrim, continues to trend down since admission, no met. acidosis (improved) 2. MAYRA, in the setting of CKD stage IIIb, ATN from low BP, volume depletion, hyaline casts noted on UA (improved) 3. Respiratory acidosis 4. UTI Plan: -Discontinue IV fluids - cont. off of bactrim -Continue to hold amlodipine and hydralazineas BP is low. -Follow-up urine culture Follow-up labs in the a.m. - avoid nephrotoxic agents Patient is seen and examined. Agree with resident's findings assessment and plan.
[2024-04-23 11:31] LABS: Glucose,Whole Blood 252 mg/dL (70-110)
--- NOTE | 2024-04-23 11:38 | P.PN ---
Subjective Progress Note Date: 04/23/24 Principal diagnosis: Shortness of breath. Patient is an 84-year-old female with past medical history significant for multiple medical comorbidities including hypertension, diabetes mellitus, chronic kidney disease, colon cancer with previous bowel resection and ostomy, femur fracture leaving her bedridden, chronic bilateral lower extremity wounds, DVT anticoagulated on Eliquis. Also, recently treated by her PCP, on an outpatient basis for UTI with Bactrim. Patient is currently in the emergency department room 9, she states that over the last 2 to 3 months she has been pr ogressively more short of breath. She may have history of CHF. States that her lower extremities are chronically swollen. She does take Tosemide at home. Denies missing doses. Chest x-ray showing stable cardiac silhouette, pulmonary vascular congestion, and small to moderate left-sided pleural effusion with adjacent atelectasis and/or consolidation. Patient denies any infectious symptoms. She does have an occasional nonproductive cough. No fevers, chills, sputum production, chest pain. CBC: WBC count 9, hemoglobin 11, hematocrit 38.5, platelets 312. CMP: Sodium 137, potassium 6.9, chloride 98, serum bicarb 25, BUN 61, creatinine 2.46, glucose 138. Lactic 1.8. LFTs unremarkable. Troponin less than 0.012. NT proBNP 7660. Ultrasound of kidneys/renal/bladder showing bilateral chronic renal disease. No hydronephrosis. Overall limited exam. Urinalysis showing few bacteria and large leukocyte esterase. She has a chronic indwelling urinary catheter. Reportedly, last changed Monday. Kidney function is worse than baseline. Reportedly undergoing current treatment for UTI outpatient with Bactrim. Was started on Rocephin in the emergency department. Hyperkalemia has been treated with the hyperkalemia cocktail. Also, receiving doses of Lokelma. Most recent potassium down to 5.8. EKG: Appears junctional rhythm with a rate of 56 bpm. No acute ischemic changes. No hyperacute T waves or QRS widening. QT/QTc 398/391. Patient is currently resting comfortably in the stretcher. She is on 2 L nasal cannula. SpO2 is reading 100%. She does not ambulate and has been bedbound since October. Does not appear dyspneic at rest. Normal saline infusing at 75 mL/h. Hemodynamics appear stable. Progress note dated April 23, 2024. 84-year-old female admitted with a diagnosis of congestive heart failure, urinary tract infection. She is seen today in room 366. He is currently on 2 L of oxygen by nasal cannula. She is not receiving any IV fluids. She continues on IV Rocephin. Current laboratory data includes a white count 7.3, hemoglobin 9.4, hematocrit 31.4, and a normal platelet count. Sodium 137, potassium 5.1, chlorides 100, CO2 28, BUN 57, creatinine 2.10. Glucose is 252. Calcium is 8. Albumin is 3.0. Urine is revealing evidence of gram-negative bacilli. It is yet to be identified. Objective - Vital Signs Vital signs: Vital Signs Temp 97.7 F 04/23/24 08:00 Pulse 80 04/23/24 08:49 Resp 14 04/23/24 08:00 BP 133/63 04/23/24 08:00 Pulse Ox 99 04/23/24 08:00 FiO2 Intake & Output 04/22/24 04/23/24 04/23/24 18:59 06:59 18:59 Intake Total 120 180 Output Total 1400 Balance 120 -1400 180 Weight 79.379 kg 85.5 kg Intake: Oral 120 180 Output: Urine 1200 Stool 200 Other: Voiding Method Indwelling Catheter Indwelling Catheter Indwelling Catheter - Exam No acute distress, oriented 3. Currently on 2 L nasal cannula. HEENT examination is grossly unremarkable. Mucous membranes are moist. No oral lesions. Neck supple. Full range of motion. No adenopathy thyromegaly or neck vein distention. Cardiovascular examination reveals regular rhythm rate. S1-S2 normal. No S3 or S4. No discernible murmur noted. Heart sounds are distant. Lungs reveal diminished breath sounds. Few crackles. No rhonchi. No wheezes. Abdomen soft bowel sounds are heard. No masses or tenderness. Colostomy noted. Extremities are wrapped. Skin is without rash or lesion. Neurologic examination is brief but nonfocal. - Labs CBC & Chem 7: 04/23/24 06:52 04/23/24 06:52 Labs: Abnormal Lab Results - Last 24 Hours (Table) 04/22/24 04/22/24 04/22/24 Range/Units 12:08 16:42 19:55 RBC (3.80-5.40) m/uL Hgb (11.4-16.0) gm/dL Hct (34.0-46.0) % MCHC (31.0-37.0) g/dL RDW (11.5-15.5) % Lymphocytes # (1.0-4.8) k/uL Eosinophils # (0-0.7) k/uL BUN (7-17) mg/dL Creatinine (0.52-1.04) mg/dL Glucose (74-99) mg/dL POC Glucose (mg/dL) 122 H 121 H 143 H (70-110) mg/dL Calcium (8.4-10.2) mg/dL Total Protein (6.3-8.2) g/dL Albumin (3.5-5.0) g/dL 04/23/24 04/23/24 04/23/24 Range/Units 06:15 06:52 06:52 RBC 3.46 L (3.80-5.40) m/uL Hgb 9.4 L (11.4-16.0) gm/dL Hct 31.4 L (34.0-46.0) % MCHC 29.9 L (31.0-37.0) g/dL RDW 18.5 H (11.5-15.5) % Lymphocytes # 0.9 L (1.0-4.8) k/uL Eosinophils # 1.0 H (0-0.7) k/uL BUN 57 H (7-17) mg/dL Creatinine 2.10 H (0.52-1.04) mg/dL Glucose 107 H (74-99) mg/dL POC Glucose (mg/dL) 134 H (70-110) mg/dL Calcium 8.0 L (8.4-10.2) mg/dL Total Protein 5.9 L (6.3-8.2) g/dL Albumin 3.0 L (3.5-5.0) g/dL Microbiology - Last 24 Hours (Table) 04/22/24 12:36 Urine Culture - Preliminary Urine,Catheterized Gram Neg Bacilli 04/21/24 18:30 Blood Culture - Preliminary Blood Assessment and Plan Assessment: Suspect acute exacerbation of diastolic CHF. Small to moderate left-sided pleural effusion. Acute dyspnea, secondary to above. Acute on chronic kidney injury. Gram-negative bacillary urinary tract infection. Severe hyperkalemia, resolved. Chronic indwelling urinary catheter. Diabetes mellitus, type II. History of hypertension. History of hyperlipidemia. History of bowel resection and ostomy. History of left femur fracture, currently bedridden since October,. Chronic bilateral lower extremity swelling and wounds. History of DVT. Plan: Plan dated April 23, 2024. The patient is seen today in room 366. The patient is on 2 L of oxygen. The urinary sampling, showing gram-negative bacilli. It is yet to be identified. She continues on Rocephin. She is not receiving any IV fluids. The lower extremities are wrapped. We will continue to follow. CODE STATUS should be addressed. She remains a full code at this time. Time with Patient: Less than 30
--- NOTE | 2024-04-23 12:06 | P.CONS ---
History of Present Illness - Reason for Consult Consult date: 04/23/24 wound care - History of Present Illness This is an 84-year-old patient being seen on 3 S. for a stage III pressure ulcer to the right buttocks and a stage II pressure ulcer to the left heel. Patient lives at home with her son. States that the ulceration has been there since October. Has been utilizing home care for wound care however she does not know what products were used. Patient spends majority of her time sitting in a chair or laying in bed. Right buttocks ulceration measures 2 x 2 x 4 cm with undermining noted circumferentially. Slough and nonviable tissue present with minimal granulation. The wound edges are not attached to the wound base. Left heel measures approximately 1 x 1 x 0.1 cm with fat layer exposure. Minimal granulation noted slough and nonviable tissue present. Patient's past medical history significant for diabetes, hyperlipidemia, hypertension, renal failure, pancreatitis. Review Of Systems: Constitutional: No fever, no chills, no night sweats. No weight change. No weakness, fatigue or lethargy. No daytime sleepiness. Integumentary:reports wounds, no lesions. No rash or pruritus. No unusual bruising. No change in hair or nails. Physical exam: General Appearance: Alert, cooperative, no distress, appears stated age. Skin: See HPI all other Skin color, texture, tugor normal, no rashes or lesions. Neurologic: Alert oriented x3 Assessment: 1. Stage III pressure ulcer right buttocks 2. Stage II pressure ulcer left heel 3. Diabetes with skin ulceration 4. Diabetic foot ulcer Plan: 1.Left heel apply honey gel and bordered foam may wrap with rolled gauze if needed. Sacrum: Apply absorptive silver rope moistened and bordered foam. Consideration for a negative pressure wound VAC in outpatient setting. Change dressings Monday. Turn patient every 2 hours. Utilize a air- filled cushion while sitting. Review surface algorithm for appropriate o ffloading surface. Consider a mattress overlay when patient goes home. Patient would benefit from advanced wound care and wound care setting. Would be happy to see her upon discharge. Thank you for the consultation any questions please contact the wound care center DNP note has been reviewed and discussed with Dr. Peter and the impression and plan of care has been directed as dictated. 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; Left Leg-MRSA Past Surgical History: Appendectomy, Section, Cholecystectomy, Heart Catheterization, Hysterectomy Additional Past Surgical History / Comment(s): pericardial window, surgery mir eyes for glaucoma, cyst removal on abdomen Past Anesthesia/Blood Transfusion Reactions: Blood Transfusion Reaction Additional Past Anesthesia/Blood Transfusion Reaction / Comm: reaction to blood transfusion 25-30 yrs ago-"I got red and they pulled it out" Past Psychological History: No Psychological Hx Reported Smoking Status: Former smoker Past Alcohol Use History: None Reported Past Drug Use History: None Reported - Past Family History Father Family Medical History: Cancer Brother(s) Family Medical History: Cancer Medications and Allergies Home Medications Medication Instructions Recorded Confirmed Type Apixaban [Eliquis] 5 mg PO BID 04/17/23 04/21/24 History Famotidine [Pepcid] 20 mg PO DAILY 10/30/23 04/21/24 History Glimepiride [Amaryl] 1 mg PO DAILY 10/30/23 04/21/24 History amLODIPine [Norvasc] 5 mg PO DAILY 10/30/23 04/21/24 History Gabapentin [Neurontin] 100 mg PO TID #9 cap 11/08/23 04/21/24 Rx HYDROcodone/APAP 10-325MG [Rutherford 1 tab PO Q4HR PRN #18 tab 11/08/23 04/21/24 Rx 10-325] Ascorbic Acid [Vitamin C] 500 mg PO BID 04/21/24 04/21/24 History Buprenorphine [Butrans 7.5 MCG/HR] 1 patch TRANSDERM Q7D 04/21/24 04/21/24 Histo ry Collagenase [Santyl Ointment] 1 applic TOPICAL DAILY 04/21/24 04/21/24 History Diclofenac Sodium Gel [Voltaren 1% 1 applic TOPICAL BID 04/21/24 04/21/24 History Gel] EPINEPHrine (Auto Inject) [Epipen] 0.3 mg IM ONCE PRN 04/21/24 04/21/24 History Ferrous Sulfate [Feosol] 325 mg PO DAILY 04/21/24 04/21/24 History Lidocaine 4% Parker 1 - 2 spray TOPICAL BID PRN 04/21/24 04/21/24 History Miconazole Nitrate [Miconazole 1 applic TOPICAL BID 04/21/24 04/21/24 History Nitrate 2%] Midodrine [ProAmatine] 5 mg PO TID 04/21/24 04/21/24 History Nystatin 100,000 Unit/gm Powd 1 applic TOPICAL BID 04/21/24 04/21/24 History [Mycostatin Powder] Omeprazole [PriLOSEC] 20 mg PO DAILY 04/21/24 04/21/24 History Sulfamethox-Tmp 800-160Mg [Bactrim 1 tab PO Q12HR 04/21/24 04/21/24 History DS 800-160 mg] Torsemide [Demadex] 20 mg PO BID 04/21/24 04/21/24 History hydrALAZINE HCL [Apresoline] 25 mg PO TID 04/21/24 04/21/24 History Allergies Allergy/AdvReac Type Severity Reaction Status Date / Time cefepime Allergy Anaphylaxis Verified 04/21/24 15:19 latex Allergy Rash/red Verified 04/21/24 15:19 skin Penicillins Allergy Rash/Hives Verified 04/21/24 15:19 Physical Exam Vitals: Vital Signs Temp Pulse Pulse Resp BP BP Pulse Ox 04/23/24 08:49 80 04/23/24 08:36 80 04/23/24 08:00 97.7 F 79 14 133/63 99 04/23/24 04:35 87 04/23/24 04:23 89 04/23/24 04:00 86 22 127/63 95 04/23/24 02:00 77 20 04/22/24 23:11 98.1 F 86 19 131/55 97 04/22/24 20:00 77 20 04/22/24 19:43 18 127/44 94 L 04/22/24 16:35 96.7 F L 77 20 141/62 95 04/22/24 16:00 78 20 124/87 99 04/22/24 12:33 86 16 110/75 94 L Intake and Output 04/22/24 04/23/24 04/23/24 22:59 06:59 14:59 Intake Total 120 180 Output Total 1100 300 Balance -980 -300 180 Intake: Oral 120 180 Output: Urine 900 300 Stool 200 Other: Voiding Method Indwelling Catheter Indwelling Catheter Indwelling Catheter Weight 79.379 kg 85.5 kg Results CBC & Chem 7: 04/23/24 06:52 04/23/24 06:52 Labs: Abnormal Lab Results - Last 24 Hours (Table) 04/22/24 04/22/24 04/22/24 Range/Units 12:08 16:42 19:55 RBC (3.80-5.40) m/uL Hgb (11.4-16.0) gm/dL Hct (34.0-46.0) % MCHC (31.0-37.0) g/dL RDW (11.5-15.5) % Lymphocytes # (1.0-4.8) k/uL Eosinophils # (0-0.7) k/uL BUN (7-17) mg/dL Creatinine (0.52-1.04) mg/dL Glucose (74-99) mg/dL POC Glucose (mg/dL) 122 H 121 H 143 H (70-110) mg/dL Calcium (8.4-10.2) mg/dL Total Protein (6.3-8.2) g/dL Albumin (3.5-5.0) g/dL 04/23/24 04/23/24 04/23/24 Range/Units 06:15 06:52 06:52 RBC 3.46 L (3.80-5.40) m/uL Hgb 9.4 L (11.4-16.0) gm/dL Hct 31.4 L (34.0-46.0) % MCHC 29.9 L (31.0-37.0) g/dL RDW 18.5 H (11.5-15.5) % Lymphocytes # 0.9 L (1.0-4.8) k/uL Eosinophils # 1.0 H (0-0.7) k/uL BUN 57 H (7-17) mg/dL Creatinine 2.10 H (0.52-1.04) mg/dL Glucose 107 H (74-99) mg/dL POC Glucose (mg/dL) 134 H (70-110) mg/dL Calcium 8.0 L (8.4-10.2) mg/dL Total Protein 5.9 L (6.3-8.2) g/dL Albumin 3.0 L (3.5-5.0) g/dL 04/23/24 Range/Units 11:30 RBC (3.80-5.40) m/uL Hgb (11.4-16.0) gm/dL Hct (34.0-46.0) % MCHC (31.0-37.0) g/dL RDW (11.5-15.5) % Lymphocytes # (1.0-4.8) k/uL Eosinophils # (0-0.7) k/uL BUN (7-17) mg/dL Creatinine (0.52-1.04) mg/dL Glucose (74-99) mg/dL POC Glucose (mg/dL) 252 H (70-110) mg/dL Calcium (8.4-10.2) mg/dL Total Protein (6.3-8.2) g/dL Albumin (3.5-5.0) g/dL Microbiology - Last 24 Hours (Table) 04/22/24 12:36 Urine Culture - Preliminary Urine,Catheterized Gram Neg Bacilli 04/21/24 18:30 Blood Culture - Preliminary Blood Assessment and Plan (1) Stage III pressure ulcer of right buttock Current Visit: Yes Status: Acute Code(s): L89.313 - PRESSURE ULCER OF RIGHT BUTTOCK, STAGE 3 SNOMED Code(s): 64159315838883 (2) Stage II pressure ulcer of left heel Current Visit: No Status: Acute Code(s): L89.622 - PRESSURE ULCER OF LEFT HEEL, STAGE 2 SNOMED Code(s): 23932763607609 (3) Type 2 diabetes mellitus with foot ulcer Current Visit: No Status: Acute Code(s): E11.621 - TYPE 2 DIABETES MELLITUS WITH FOOT ULCER; L97.509 - NON-PRESSURE CHRONIC ULCER OTH PRT UNSP FOOT W UNSP SEVERITY SNOMED Code(s): 8942309882636 (4) Type 2 diabetes mellitus with other skin ulcer Current Visit: No Status: Acute Code(s): E11.622 - TYPE 2 DIABETES MELLITUS WITH OTHER SKIN ULCER; L98.499 - NON-PRESSURE CHRONIC ULCER OF SKIN OF SITES W UNSP SEVERITY SNOMED Code(s): 420792160993512
--- NOTE | 2024-04-23 12:20 | P.PN ---
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 On today's evaluation that is 04/23/2024, Patient is afebrile this morning patient denies having any chest pain shortness of breath or cough, the patient is breathing comfortably and currently on 2 L nasal cannula oxygen patient denies any abdominal pain no diarrhea no nausea no vomiting, denies pain to the bilateral heel lower extremity. The patient did have white count 7.3, creatinine is 2.10 urine is growing gram- negative Objective - Vital Signs Vital signs: Vital Signs Temp 97.7 F 04/23/24 08:00 Pulse 80 04/23/24 08:49 Resp 14 04/23/24 08:00 BP 133/63 04/23/24 08:00 Pulse Ox 99 04/23/24 08:00 FiO2 Intake & Output 04/22/24 04/23/24 04/23/24 18:59 06:59 18:59 Intake Total 120 180 Output Total 1400 200 Balance 120 -1400 -20 Weight 79.379 kg 85.5 kg Intake: Oral 120 180 Output: Urine 1200 200 Stool 200 Other: Voiding Method Indwelling Catheter Indwelling Catheter Indwelling Catheter - Exam GENERAL DESCRIPTION: An elderly female lying in bed in no distress RESPIRATORY SYSTEM: Unlabored breathing , decreased breath sounds at bases HEART: S1 S2 regular rate and rhythm , ABDOMEN: Soft , no tenderness EXTREMITIES: Bilateral heel wounds are healing well and no evidence of cellulitis - Labs CBC & Chem 7: 04/23/24 06:52 04/23/24 06:52 Labs: Abnormal Lab Results - Last 24 Hours (Table) 04/22/24 04/22/24 04/23/24 Range/Units 16:42 19:55 06:15 RBC (3.80-5.40) m/uL Hgb (11.4-16.0) gm/dL Hct (34.0-46.0) % MCHC (31.0-37.0) g/dL RDW (11.5-15.5) % Lymphocytes # (1.0-4.8) k/uL Eosinophils # (0-0.7) k/uL BUN (7-17) mg/dL Creatinine (0.52-1.04) mg/dL Glucose (74-99) mg/dL POC Glucose (mg/dL) 121 H 143 H 134 H (70-110) mg/dL Calcium (8.4-10.2) mg/dL Total Protein (6.3-8.2) g/dL Albumin (3.5-5.0) g/dL 04/23/24 04/23/24 04/23/24 Range/Units 06:52 06:52 11:30 RBC 3.46 L (3.80-5.40) m/uL Hgb 9.4 L (11.4-16.0) gm/dL Hct 31.4 L (34.0-46.0) % MCHC 29.9 L (31.0-37.0) g/dL RDW 18.5 H (11.5-15.5) % Lymphocytes # 0.9 L (1.0-4.8) k/uL Eosinophils # 1.0 H (0-0.7) k/uL BUN 57 H (7-17) mg/dL Creatinine 2.10 H (0.52-1.04) mg/dL Glucose 107 H (74-99) mg/dL POC Glucose (mg/dL) 252 H (70-110) mg/dL Calcium 8.0 L (8.4-10.2) mg/dL Total Protein 5.9 L (6.3-8.2) g/dL Albumin 3.0 L (3.5-5.0) g/dL Microbiology - Last 24 Hours (Table) 04/22/24 12:36 Urine Culture - Preliminary Urine,Catheterized Gram Neg Bacilli 04/21/24 18:30 Blood Culture - Preliminary Blood Assessment and Plan (1) Catheter-associated urinary tract infection Current Visit: Yes Status: Acute Code(s): T83.511A - I/I REACT D/T INDWELLING URETHRAL CATHETER, INIT; N39.0 - URINARY TRACT INFECTION, SITE NOT SPECIFIED SNOMED Code(s): 359671920 (2) Allergy to multiple antibiotics Current Visit: No Status: Acute Code(s): Z88.1 - ALLERGY STATUS TO OTHER ANTIBIOTIC AGENTS SNOMED Code(s): 805535976 Plan: 1patient presented to hospital with shortness of breath and this patient noticed to have worsening of her kidney function elevated potassium could be related to Bactrim DS the patient was taking outpatient setting for the UTI, patient did have positive UA suprapubic discomfort a complaint of catheter associated tract infection not entirely excluded. 2patient with multiple antibiotic ALLERGIES that would limit the number of antibiotic safe to use 3patient urine is growing gram-negative bacilli, continue Rocephin while waiting for the culture to finalize. 4patient did have bilateral lower extremity wound which are drying out and mostly dry scaly skin will advise moisturizing cream to bilateral lower extremities. No need for Thera honey which will be discontinued Dictation was produced using [employer] dictation software. please excuse any grammatical, word or spelling errors. Time with Patient: Less than 30
--- NOTE | 2024-04-23 12:27 | P.PN ---
Subjective Progress Note Date: 04/23/24 84-year-old female multiple comorbidities presents to the emergency department with dyspnea upon waking. Patient has multiple comorbidities. States that she feels short of breath. She is a poor historian. She denies any pain. Denies any fever, chills or night sweats. She does report a cough. Patient arrives from home. Patient is sleepy and not able to provide much history; family is not available at bedside Blood work reveals WBC of 9.2, hemoglobin of 11, platelet count of 312, sodium 137, potassium 6.7, BUNs/creatinine of 61/2.46, magnesium elevated at 2.7, BNP of 7660, lactic acid of 1.8, troponin less than 0.012, influenza, RSV and COVID- 19 PCR is negative. UA is positive for leukocyte esterase, WBCs and bacteria EKG strangely shows no P waves and is bradycardic. Laboratory evaluation obtained. CBC and coag panel is negative. Metabolic panel shows potassium 6.7 that elevated renal function. Urinalysis shows greater than 182 white blood cells. Viral testing negative. Chest x-ray shows heart failure. Patient well- appearing from respiratory standpoint. Patient given hyperkalemia cocktail. 04/22. Patient seen and examined. Blood work done this morning showed WBC 8.3, hemoglobin 9.6, sodium 135, potassium 5.6, BUN 65, creatinine 2.51. Denies any shortness of breath. 04/23. Patient seen and examined. Blood work done this morning showed WBC 7.3, hemoglobin 9.4, platelet count 232, sodium 137, potassium 5.1, BUN 57, creatinine 2.10. 2D echo done showed LVH with hyperdynamic systolic function with systolic function of 65%, moderate pulmonary hypertension. States she feels much better. REVIEW OF SYSTEMS: CONSTITUTIONAL: No fever, no malaise,. CARDIOVASCULAR: No chest pain, no palpitations, no syncope. PULMONARY: No shortness of breath, no cough, GASTROINTESTINAL: No diarrhea, no nausea, no vomiting, no abdominal pain. NEUROLOGICAL: No headaches, no weakness, PHYSICAL EXAMINATION: GENERAL: The patient is alert and oriented x3, not in any acute distress. Well developed, well nourished. HEENT: Pupils are round and equally reacting to light. EOMI. No scleral icterus. No conjunctival pallor. Normocephalic, atraumatic. No pharyngeal erythema. No thyromegaly. CARDIOVASCULAR: S1 and S2 present. No murmurs, rubs, or gallops. PULMONARY: Chest is clear to auscultation, no wheezing or crackles. ABDOMEN: Soft, nontender, nondistended, normoactive bowel sounds. No palpable organomegaly. MUSCULOSKELETAL: No joint swelling or deformity. EXTREMITIES: Chronic lower extremity venous stasis changes and scaly pigmentation NEUROLOGICAL: Gross neurological examination did not reveal any focal deficits. SKIN: No rashes. Assessment and plan Acute on chronic diastolic CHF Hyperkalemia Acute kidney injury Left pleural effusion UTI Hypertension Diabetes mellitus History of hyperlipidemia History of bowel resection and ostomy History of left femur fracture, currently bedridden since October, Chronic bilateral lower extremity swelling and wounds History of DVT, anticoagulated on Eliquis Monitor vital signs Monitor CBC Monitor CMP Continue telemetry monitoring Avoid nephrotoxic agents Low potassium diet Strict I's and O's, daily weights Hyperkalemia protocol initiated Continue IV Rocephin Continue Eliquis Amlodipine and hydralazine on hold secondary to soft blood pressure Nephrology following Cardiology following ID following Labs and medication were reviewed.. Continue same treatment. Continue with symptomatic treatment. Resume home medication. Monitor labs and vitals. DVT and GI prophylaxis. Further recommendations as per clinical course of the patient Dictation was produced using [employer] dictation software. please excuse any grammatical, word or spelling errors. Objective - Vital Signs Vital signs: Vital Signs Temp 97.7 F 04/23/24 08:00 Pulse 80 04/23/24 08:49 Resp 14 04/23/24 08:00 BP 133/63 04/23/24 08:00 Pulse Ox 99 04/23/24 08:00 FiO2 Intake & Output 04/22/24 04/23/24 04/23/24 18:59 06:59 18:59 Intake Total 120 180 Output Total 1400 Balance 120 -1400 180 Weight 79.379 kg 85.5 kg Intake: Oral 120 180 Output: Urine 1200 Stool 200 Other: Voiding Method Indwelling Catheter Indwelling Catheter - Labs CBC & Chem 7: 04/23/24 06:52 04/23/24 06:52 Labs: Abnormal Lab Results - Last 24 Hours (Table) 04/22/24 04/22/24 04/22/24 Range/Units 12:08 16:42 19:55 RBC (3.80-5.40) m/uL Hgb (11.4-16.0) gm/dL Hct (34.0-46.0) % MCHC (31.0-37.0) g/dL RDW (11.5-15.5) % Lymphocytes # (1.0-4.8) k/uL Eosinophils # (0-0.7) k/uL BUN (7-17) mg/dL Creatinine (0.52-1.04) mg/dL Glucose (74-99) mg/dL POC Glucose (mg/dL) 122 H 121 H 143 H (70-110) mg/dL Calcium (8.4-10.2) mg/dL Total Protein (6.3-8.2) g/dL Albumin (3.5-5.0) g/dL 04/23/24 04/23/24 04/23/24 Range/Units 06:15 06:52 06:52 RBC 3.46 L (3.80-5.40) m/uL Hgb 9.4 L (11.4-16.0) gm/dL Hct 31.4 L (34.0-46.0) % MCHC 29.9 L (31.0-37.0) g/dL RDW 18.5 H (11.5-15.5) % Lymphocytes # 0.9 L (1.0-4.8) k/uL Eosinophils # 1.0 H (0-0.7) k/uL BUN 57 H (7-17) mg/dL Creatinine 2.10 H (0.52-1.04) mg/dL Glucose 107 H (74-99) mg/dL POC Glucose (mg/dL) 134 H (70-110) mg/dL Calcium 8.0 L (8.4-10.2) mg/dL Total Protein 5.9 L (6.3-8.2) g/dL Albumin 3.0 L (3.5-5.0) g/dL Microbiology - Last 24 Hours (Table) 04/21/24 18:30 Blood Culture - Preliminary Blood
--- NOTE | 2024-04-23 13:58 | P.PN ---
Subjective HISTORY OF PRESENT ILLNESS: This is a 84-year-old female with a past medical history significant for congestive heart failure, DVT, hypertension, and chronic kidney disease. 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 We have been asked to see the patient in consultation for CHF. Patient examined at the bedside in the emergency room. Patient initially presented to hospital chief complaint of shortness of breath. She denied having any chest pain or pressure. Patient was found to be in CHF. Additionally she was found to have hyperkalemia and worsening kidney function. Patient's initial EKG revealed junctional rhythm. Bedside telemetry reveals sinus mechanism. DIAGNOSTICS: - EKG reveals junctional rhythm - Chest xray correlate for CHF with pulmonary vascular congestion. Small to moderate left pleural effusion with adjacent atelectasis and/or consolidation. - Laboratory data: WBC 8.3. Hemoglobin 9.6. Platelet count 245. Sodium 138. Potassium 5.5. BUN 63. Creatinine 2.44. Troponin negative x 1. proBNP 7660. - Current home cardiac medications include hydralazine 25 mg 3 times a day, amlodipine 5 mg daily, Demadex 20 mg twice a day, midodrine 5 mg 3 times a day, Eliquis 5 mg twice a day - Most recent echocardiogram obtained in March 2023 revealed ejection fraction 60 to 65%, mild pulm hypertension, aortic sclerosis without any stenosis, and mild TR - Cardiac catheterization history: Unknown 04/23/2024 Patient examined this morning the bedside. Patient currently denies chest pain or pressure. She denies shortness of breath. She remains on IV fluids at 75 cc an hour. Echocardiogram completed revealing ejection fraction 65 to 70%, hyperdynamic left ventricular systolic function, mid cavitary gradient 43 mmHg, trace to mild MR, mild aortic stenosis, no aortic regurgitation, mild to moderate tricuspid regurgitation, mild mitral stenosis PHYSICAL EXAM: VITAL SIGNS: Reviewed. GENERAL: Well-developed in no acute distress. HEENT: Head is normocephalic. Pupils are equal, round. Sclerae anicteric. Mucous membranes of the mouth are moist. Neck supple. No JVD or thyromegaly LUNGS: Respirations even and unlabored. Lungs diminished HEART: Regular rate and rhythm. S1 and S2 heard. Systolic murmur noted ABDOMEN: Soft. Nondistended. Nontender. EXTREMITIES: Normal range of motion. No clubbing or cyanosis. Peripheral pulses intact. Mild bilateral lower extremity edema with chronic skin discoloration and scaly dry patches NEUROLOGIC: Awake and alert. Oriented x 3. ASSESSMENT: Acute on chronic heart failure with preserved EF, 65 to 70% Small to moderate left pleural effusion Junctional rhythm, likely secondary to hyperkalemia, since resolved, maintaining sinus mechanism Hyperkalemia, 7.0 Acute on chronic kidney disease History of DVT, on Eliquis outpatient Recent diagnosis of UTI, on Bactrim outpatient Chronic indwelling urinary catheter History of bowel resection with ostomy History of left femur fracture, bedridden at baseline since 10/2023 PLAN: Continue current cardiac medications Amlodipine and hydralazine placed on hold yesterday secondary to soft blood pressures. Blood pressures are improved today. Discontinue midodrine and continue to monitor blood pressure Continue anticoagulation with Eliquis Monitor kidney function Diuretic management per nephrology. Currently off diuretics. Currently receiving IV fluids at 75 cc an hour. Consider discontinuing IV fluids. Will defer to internal medicine and nephrology. Continue telemetry monitoring Further recommendations pending patient course Nurse practitioner note has been reviewed by physician. Signing provider agrees with the documented findings, assessment, and plan of care documented by CODING QUALITY ANALYST as a scribe. Objective - Vital Signs Vital signs: Vital Signs Temp 97.2 F L 04/23/24 12:00 Pulse 93 04/23/24 12:00 Resp 14 04/23/24 08:00 BP 131/62 04/23/24 12:00 Pulse Ox 96 04/23/24 12:00 FiO2 Intake & Output 04/22/24 04/23/24 04/23/24 18:59 06:59 18:59 Intake Total 120 180 Output Total 1400 200 Balance 120 -1400 -20 Weight 79.379 kg 85.5 kg Intake: Oral 120 180 Output: Urine 1200 200 Stool 200 Other: Voiding Method Indwelling Catheter Indwelling Catheter Indwelling Catheter - Labs CBC & Chem 7: 04/23/24 06:52 04/23/24 06:52 Labs: Abnormal Lab Results - Last 24 Hours (Table) 04/22/24 04/22/24 04/23/24 Range/Units 16:42 19:55 06:15 RBC (3.80-5.40) m/uL Hgb (11.4-16.0) gm/dL Hct (34.0-46.0) % MCHC (31.0-37.0) g/dL RDW (11.5-15.5) % Lymphocytes # (1.0-4.8) k/uL Eosinophils # (0-0.7) k/uL BUN (7-17) mg/dL Creatinine (0.52-1.04) mg/dL Glucose (74-99) mg/dL POC Glucose (mg/dL) 121 H 143 H 134 H (70-110) mg/dL Calcium (8.4-10.2) mg/dL Total Protein (6.3-8.2) g/dL Albumin (3.5-5.0) g/dL 04/23/24 04/23/24 04/23/24 Range/Units 06:52 06:52 11:30 RBC 3.46 L (3.80-5.40) m/uL Hgb 9.4 L (11.4-16.0) gm/dL Hct 31.4 L (34.0-46.0) % MCHC 29.9 L (31.0-37.0) g/dL RDW 18.5 H (11.5-15.5) % Lymphocytes # 0.9 L (1.0-4.8) k/uL Eosinophils # 1.0 H (0-0.7) k/uL BUN 57 H (7-17) mg/dL Creatinine 2.10 H (0.52-1.04) mg/dL Glucose 107 H (74-99) mg/dL POC Glucose (mg/dL) 252 H (70-110) mg/dL Calcium 8.0 L (8.4-10.2) mg/dL Total Protein 5.9 L (6.3-8.2) g/dL Albumin 3.0 L (3.5-5.0) g/dL Microbiology - Last 24 Hours (Table) 04/22/24 12:36 Urine Culture - Preliminary Urine,Catheterized Gram Neg Bacilli 04/21/24 18:30 Blood Culture - Preliminary Blood
[2024-04-23 16:41] LABS: Glucose,Whole Blood 140 mg/dL (70-110)
[2024-04-23] MEDS: BENZOCAINE/MENTHOL LOZENG 1 EACH LOZENGE MUCOUS MEM PRN (17:25)
[2024-04-23 20:37] LABS: Glucose,Whole Blood 164 mg/dL (70-110)
[2024-04-23] MEDS: HYDROcodone/APAP 10-325MG 1 EACH TAB PO PRN (21:13)
[2024-04-24 06:12] LABS: Glucose,Whole Blood 111 mg/dL (70-110)
[2024-04-24 07:11] LABS: Anisocytosis Slight; Basophils % (A) 0 %; Eosinophils # (A) 0.9 k/uL (0-0.7); Eosinophils % (A) 15 %; HCT 33.4 % (34.0-46.0); HGB 9.5 gm/dL (11.4-16.0); Hypochromasia Marked; Lymphocytes # (A) 0.9 k/uL (1.0-4.8); Lymphocytes % (A) 15 %; MCH 25.8 pg (25.0-35.0); MCHC 28.4 g/dL (31.0-37.0); MCV 90.9 fL (80.0-100.0); Monocytes # (A) 0.4 k/uL (0-1.0); Monocytes % (A) 6 %; Neutrophils # (A) 3.6 k/uL (1.3-7.7); Neutrophils % (A) 62 %; Platelet Count 240 k/uL (150-450); RBC 3.68 m/uL (3.80-5.40); RDW 18.3 % (11.5-15.5); WBC 5.9 k/uL (3.8-10.6)
[2024-04-24 07:31] LABS: ALT 6 U/L (4-34); AST 17 U/L (14-36); African American GFR (CKD) 27 (>60 ml/min/1.73 sqM); Albumin 2.9 g/dL (3.5-5.0); Alkaline Phosphatase 89 U/L (38-126); Anion Gap 4 mmol/L; Blood Urea Nitrogen 54 mg/dL (7-17); Carbon Dioxide 31 mmol/L (22-30); Chloride 103 mmol/L (98-107); Glucose 99 mg/dL (74-99); Non-African American GFR(CKD) 23 (>60 ml/min/1.73 sqM); Potassium 4.9 mmol/L (3.5-5.1); Sodium 138 mmol/L (137-145); Total Bilirubin 0.2 mg/dL (0.2-1.3); Total Protein 5.8 g/dL (6.3-8.2)
--- NOTE | 2024-04-24 11:00 | P.PN ---
Subjective Progress Note Date: 04/24/24 Principal diagnosis: Shortness of breath. Patient is an 84-year-old female with past medical history significant for multiple medical comorbidities including hypertension, diabetes mellitus, chronic kidney disease, colon cancer with previous bowel resection and ostomy, femur fracture leaving her bedridden, chronic bilateral lower extremity wounds, DVT anticoagulated on Eliquis. Also, recently treated by her PCP, on an outpatient basis for UTI with Bactrim. Patient is currently in the emergency department room 9, she states that over the last 2 to 3 months she has been pr ogressively more short of breath. She may have history of CHF. States that her lower extremities are chronically swollen. She does take Tosemide at home. Denies missing doses. Chest x-ray showing stable cardiac silhouette, pulmonary vascular congestion, and small to moderate left-sided pleural effusion with adjacent atelectasis and/or consolidation. Patient denies any infectious symptoms. She does have an occasional nonproductive cough. No fevers, chills, sputum production, chest pain. CBC: WBC count 9, hemoglobin 11, hematocrit 38.5, platelets 312. CMP: Sodium 137, potassium 6.9, chloride 98, serum bicarb 25, BUN 61, creatinine 2.46, glucose 138. Lactic 1.8. LFTs unremarkable. Troponin less than 0.012. NT proBNP 7660. Ultrasound of kidneys/renal/bladder showing bilateral chronic renal disease. No hydronephrosis. Overall limited exam. Urinalysis showing few bacteria and large leukocyte esterase. She has a chronic indwelling urinary catheter. Reportedly, last changed Monday. Kidney function is worse than baseline. Reportedly undergoing current treatment for UTI outpatient with Bactrim. Was started on Rocephin in the emergency department. Hyperkalemia has been treated with the hyperkalemia cocktail. Also, receiving doses of Lokelma. Most recent potassium down to 5.8. EKG: Appears junctional rhythm with a rate of 56 bpm. No acute ischemic changes. No hyperacute T waves or QRS widening. QT/QTc 398/391. Patient is currently resting comfortably in the stretcher. She is on 2 L nasal cannula. SpO2 is reading 100%. She does not ambulate and has been bedbound since October. Does not appear dyspneic at rest. Normal saline infusing at 75 mL/h. Hemodynamics appear stable. Progress note dated April 23, 2024. 84-year-old female admitted with a diagnosis of congestive heart failure, urinary tract infection. She is seen today in room 366. He is currently on 2 L of oxygen by nasal cannula. She is not receiving any IV fluids. She continues on IV Rocephin. Current laboratory data includes a white count 7.3, hemoglobin 9.4, hematocrit 31.4, and a normal platelet count. Sodium 137, potassium 5.1, chlorides 100, CO2 28, BUN 57, creatinine 2.10. Glucose is 252. Calcium is 8. Albumin is 3.0. Urine is revealing evidence of gram-negative bacilli. It is yet to be identified. Progress note dated April 24, 2024. 84-year-old female who was admitted with a diagnosis of congestive heart failure, urinary tract infection, and lower extremity wounds. The patient's urine tested positive for Pseudomonas. She currently is on Rocephin. She is being followed by infectious diseases. White count is 5.9, hemoglobin 9.5, hematocrit 33.4, platelet count 240,000. Sodium 138, potassium 4.9, chlorides 103, CO2 31, BUN 54, and creatinine 1.93. Calcium is 8. Albumin is 2.9. Objective - Vital Signs Vital signs: Vital Signs Temp 97.6 F 04/24/24 08:00 Pulse 87 04/24/24 08:00 Resp 16 04/24/24 08:00 BP 115/46 04/24/24 08:00 Pulse Ox 96 04/24/24 08:00 FiO2 Intake & Output 04/23/24 04/24/24 04/24/24 18:59 06:59 18:59 Intake Total 840 540 180 Output Total 600 575 Balance 240 -35 180 Weight 85.5 kg 87.5 kg Intake: Oral 840 540 180 Output: Urine 600 575 Other: Voiding Method Indwelling Catheter Indwelling Catheter Indwelling Catheter - Exam No acute distress, oriented 3. Currently on 2 L nasal cannula. HEENT examination is grossly unremarkable. Mucous membranes are moist. No oral lesions. Neck supple. Full range of motion. No adenopathy thyromegaly or neck vein distention. Cardiovascular examination reveals regular rhythm rate. S1-S2 normal. No S3 or S4. No discernible murmur noted. Heart sounds are distant. Lungs reveal diminished breath sounds. Few crackles. No rhonchi. No wheezes. Abdomen soft bowel sounds are heard. No masses or tenderness. Colostomy noted. Extremities are wrapped. Skin is without rash or lesion. Neurologic examination is brief but nonfocal. - Labs CBC & Chem 7: 04/24/24 06:55 04/24/24 06:55 Labs: Abnormal Lab Results - Last 24 Hours (Table) 04/23/24 04/23/24 04/23/24 Range/Units 11:30 16:39 20:36 RBC (3.80-5.40) m/uL Hgb (11.4-16.0) gm/dL Hct (34.0-46.0) % MCHC (31.0-37.0) g/dL RDW (11.5-15.5) % Lymphocytes # (1.0-4.8) k/uL Eosinophils # (0-0.7) k/uL Carbon Dioxide (22-30) mmol/L BUN (7-17) mg/dL Creatinine (0.52-1.04) mg/dL POC Glucose (mg/dL) 252 H 140 H 164 H (70-110) mg/dL Calcium (8.4-10.2) mg/dL Total Protein (6.3-8.2) g/dL Albumin (3.5-5.0) g/dL 04/24/24 04/24/24 04/24/24 Range/Units 06:11 06:55 06:55 RBC 3.68 L (3.80-5.40) m/uL Hgb 9.5 L (11.4-16.0) gm/dL Hct 33.4 L (34.0-46.0) % MCHC 28.4 L (31.0-37.0) g/dL RDW 18.3 H (11.5-15.5) % Lymphocytes # 0.9 L (1.0-4.8) k/uL Eosinophils # 0.9 H (0-0.7) k/uL Carbon Dioxide 31 H (22-30) mmol/L BUN 54 H (7-17) mg/dL Creatinine 1.93 H (0.52-1.04) mg/dL POC Glucose (mg/dL) 111 H (70-110) mg/dL Calcium 8.0 L (8.4-10.2) mg/dL Total Protein 5.8 L (6.3-8.2) g/dL Albumin 2.9 L (3.5-5.0) g/dL Microbiology - Last 24 Hours (Table) 04/23/24 11:15 Gram Stain - Preliminary Buttock 04/22/24 12:36 Urine Culture - Final Urine,Catheterized Pseudomonas aeruginosa 04/21/24 18:30 Blood Culture - Preliminary Blood Assessment and Plan Assessment: Suspect acute exacerbation of diastolic CHF. Small to moderate left-sided pleural effusion. Acute dyspnea, secondary to above. Acute on chronic kidney injury. Urinary tract infection secondary to Pseudomonas aeruginosa. Severe hyperkalemia, resolved. Chronic indwelling urinary catheter. Diabetes mellitus, type II. History of hypertension. History of hyperlipidemia. History of bowel resection and ostomy. History of left femur fracture, currently bedridden since October,. Chronic bilateral lower extremity swelling and wounds. History of DVT. Plan: Plan dated April 23, 2024. The patient is seen today in room 366. The patient is on 2 L of oxygen. The urinary sampling, showing gram-negative bacilli. It is yet to be identified. She continues on Rocephin. She is not receiving any IV fluids. The lower extremities are wrapped. We will continue to follow. CODE STATUS should be addressed. She remains a full code at this time. Plan dated April 24, 2024. The patient is seen in room 366. She remains on O2 at 2 L. No IV fluids. She continues on Rocephin. She is being followed by infectious diseases. Her urine did test positive for Pseudomonas. Additional recommendations and suggestions are forthcoming. She remains a full code. Should be addressed. Labs, x-rays, and all medications have been reviewed. Time with Patient: Less than 30
[2024-04-24] MEDS: METOPROLOL SUCCINATE (ER) 25 MG TAB.ER.24H PO SCH (11:40)
--- NOTE | 2024-04-24 11:41 | P.PN ---
Subjective Patient seen at bedside. No significant overnight events. 24-hour urine output was 1175. Serum creatinine improved from 2.10 to 1.93 and potassium improved from 5.1 to 4.9. Objective - Vital Signs Vital signs: Vital Signs Temp 98.1 F 04/24/24 04:00 Pulse 86 04/24/24 04:00 Resp 16 04/24/24 04:00 BP 120/53 04/24/24 04:00 Pulse Ox 96 04/24/24 04:00 FiO2 Intake & Output 04/23/24 04/24/24 04/24/24 18:59 06:59 18:59 Intake Total 840 540 180 Output Total 600 575 Balance 240 -35 180 Weight 85.5 kg 87.5 kg Intake: Oral 840 540 180 Output: Urine 600 575 Other: Voiding Method Indwelling Catheter Indwelling Catheter - Exam General: Alert, in no apparent distress. Head: Normocephalic and atraumatic Lungs: Equal air entry with no crackles, wheeze, rhonchi or dullness. D iminished left basilar lung sounds. On 2 L/min nasal cannula. Cardio: S1 and S2 normal with soft systolic murmur, regular rhythm. No extra heart sounds Abdomen: Functional left colostomy, stoma pink, contents of colostomy are a light brown sludge. Active bowel sounds, abdomen is soft, no guarding or rigidity Skin: No rashes Neuro: No focal deficits, tone is normal in all 4 extremities. Extremities: Mostly chronic skin changes with chronic wounds present. No clubbing, or cyanosis. Peripheral pulses are intact. - Labs CBC & Chem 7: 04/24/24 06:55 04/25/24 06:33 Labs: Abnormal Lab Results - Last 24 Hours (Table) 04/23/24 04/23/24 04/23/24 Range/Units 11:30 16:39 20:36 RBC (3.80-5.40) m/uL Hgb (11.4-16.0) gm/dL Hct (34.0-46.0) % MCHC (31.0-37.0) g/dL RDW (11.5-15.5) % Lymphocytes # (1.0-4.8) k/uL Eosinophils # (0-0.7) k/uL Carbon Dioxide (22-30) mmol/L BUN (7-17) mg/dL Creatinine (0.52-1.04) mg/dL POC Glucose (mg/dL) 252 H 140 H 164 H (70-110) mg/dL Calcium (8.4-10.2) mg/dL Total Protein (6.3-8.2) g/dL Albumin (3.5-5.0) g/dL 04/24/24 04/24/24 04/24/24 Range/Units 06:11 06:55 06:55 RBC 3.68 L (3.80-5.40) m/uL Hgb 9.5 L (11.4-16.0) gm/dL Hct 33.4 L (34.0-46.0) % MCHC 28.4 L (31.0-37.0) g/dL RDW 18.3 H (11.5-15.5) % Lymphocytes # 0.9 L (1.0-4.8) k/uL Eosinophils # 0.9 H (0-0.7) k/uL Carbon Dioxide 31 H (22-30) mmol/L BUN 54 H (7-17) mg/dL Creatinine 1.93 H (0.52-1.04) mg/dL POC Glucose (mg/dL) 111 H (70-110) mg/dL Calcium 8.0 L (8.4-10.2) mg/dL Total Protein 5.8 L (6.3-8.2) g/dL Albumin 2.9 L (3.5-5.0) g/dL Microbiology - Last 24 Hours (Table) 04/23/24 11:15 Gram Stain - Preliminary Buttock 04/22/24 12:36 Urine Culture - Final Urine,Catheterized Pseudomonas aeruginosa 04/21/24 18:30 Blood Culture - Preliminary Blood Assessment and Plan Assessment: 1. Hyperkalemia, 2/2 to MAYRA and use of bactrim, continues to trend down since admission, no met. acidosis (improved) 2. MAYRA, in the setting of CKD stage IIIb, ATN from low BP, volume depletion, hyaline casts noted on UA (improved) 3. Respiratory acidosis on admission. 4. UTI, found to be Pseudomonas, sensitivities returned Plan: -Discontinue IV fluids - cont. off of bactrim -Continue to hold amlodipine and hydralazineas BP is low. -Urine culture shows Pseudomonas, sensitivity has returned, pending recommendat ions on antibiotics. Follow-up labs in the a.m. - avoid nephrotoxic agents I agree with resident's findings, assessment and plan.
[2024-04-24 11:43] LABS: Glucose,Whole Blood 156 mg/dL (70-110)
--- NOTE | 2024-04-24 12:37 | P.PN ---
Subjective Progress Note Date: 04/24/24 84-year-old female multiple comorbidities presents to the emergency department with dyspnea upon waking. Patient has multiple comorbidities. States that she feels short of breath. She is a poor historian. She denies any pain. Denies any fever, chills or night sweats. She does report a cough. Patient arrives from home. Patient is sleepy and not able to provide much history; family is not available at bedside Blood work reveals WBC of 9.2, hemoglobin of 11, platelet count of 312, sodium 137, potassium 6.7, BUNs/creatinine of 61/2.46, magnesium elevated at 2.7, BNP of 7660, lactic acid of 1.8, troponin less than 0.012, influenza, RSV and COVID- 19 PCR is negative. UA is positive for leukocyte esterase, WBCs and bacteria EKG strangely shows no P waves and is bradycardic. Laboratory evaluation obtained. CBC and coag panel is negative. Metabolic panel shows potassium 6.7 that elevated renal function. Urinalysis shows greater than 182 white blood cells. Viral testing negative. Chest x-ray shows heart failure. Patient well- appearing from respiratory standpoint. Patient given hyperkalemia cocktail. 04/22. Patient seen and examined. Blood work done this morning showed WBC 8.3, hemoglobin 9.6, sodium 135, potassium 5.6, BUN 65, creatinine 2.51. Denies any shortness of breath. 04/23. Patient seen and examined. Blood work done this morning showed WBC 7.3, hemoglobin 9.4, platelet count 232, sodium 137, potassium 5.1, BUN 57, creatinine 2.10. 2D echo done showed LVH with hyperdynamic systolic function with systolic function of 65%, moderate pulmonary hypertension. States she feels much better. 04/24. Patient seen and examined. Complaining of cough. Denies any shortness of breath at rest REVIEW OF SYSTEMS: CONSTITUTIONAL: No fever, no malaise,. CARDIOVASCULAR: No chest pain, no palpitations, no syncope. PULMONARY: As mentioned above GASTROINTESTINAL: No diarrhea, no nausea, no vomiting, no abdominal pain. NEUROLOGICAL: No headaches, no weakness, PHYSICAL EXAMINATION: GENERAL: The patient is alert and oriented x3, not in any acute distress. Well developed, well nourished. HEENT: Pupils are round and equally reacting to light. EOMI. No scleral icterus. No conjunctival pallor. Normocephalic, atraumatic. No pharyngeal erythema. No thyromegaly. CARDIOVASCULAR: S1 and S2 present. No murmurs, rubs, or gallops. PULMONARY: Chest is clear to auscultation, no wheezing or crackles. ABDOMEN: Soft, nontender, nondistended, normoactive bowel sounds. No palpable organomegaly. MUSCULOSKELETAL: No joint swelling or deformity. EXTREMITIES: Chronic lower extremity venous stasis changes and scaly pigmentation NEUROLOGICAL: Gross neurological examination did not reveal any focal deficits. SKIN: No rashes. Assessment and plan Acute on chronic diastolic CHF Hyperkalemia Acute kidney injury Left pleural effusion UTI Hypertension Diabetes mellitus History of hyperlipidemia History of bowel resection and ostomy History of left femur fracture, currently bedridden since October, Chronic bilateral lower extremity swelling and wounds History of DVT, anticoagulated on Eliquis Monitor vital signs Monitor CBC Monitor CMP Continue telemetry monitoring Avoid nephrotoxic agents Low potassium diet Strict I's and O's, daily weights DC fluid Continue IV Rocephin Continue Eliquis Amlodipine and hydralazine on hold secondary to soft blood pressure Nephrology following Cardiology following ID following Labs and medication were reviewed.. Continue same treatment. Continue with symptomatic treatment. Resume home medication. Monitor labs and vitals. DVT and GI prophylaxis. Further recommendations as per clinical course of the patient Dictation was produced using [employer] dictation software. please excuse any grammatical, word or spelling errors. Objective - Vital Signs Vital signs: Vital Signs Temp 97.6 F 04/24/24 08:00 Pulse 87 04/24/24 08:00 Resp 16 04/24/24 08:00 BP 115/46 04/24/24 08:00 Pulse Ox 96 04/24/24 08:00 FiO2 Intake & Output 04/23/24 04/24/24 04/24/24 18:59 06:59 18:59 Intake Total 840 540 180 Output Total 600 575 Balance 240 -35 180 Weight 85.5 kg 87.5 kg Intake: Oral 840 540 180 Output: Urine 600 575 Other: Voiding Method Indwelling Catheter Indwelling Catheter Indwelling Catheter - Labs CBC & Chem 7: 04/24/24 06:55 04/24/24 06:55 Labs: Abnormal Lab Results - Last 24 Hours (Table) 04/23/24 04/23/24 04/24/24 Range/Units 16:39 20:36 06:11 RBC (3.80-5.40) m/uL Hgb (11.4-16.0) gm/dL Hct (34.0-46.0) % MCHC (31.0-37.0) g/dL RDW (11.5-15.5) % Lymphocytes # (1.0-4.8) k/uL Eosinophils # (0-0.7) k/uL Carbon Dioxide (22-30) mmol/L BUN (7-17) mg/dL Creatinine (0.52-1.04) mg/dL POC Glucose (mg/dL) 140 H 164 H 111 H (70-110) mg/dL Calcium (8.4-10.2) mg/dL Total Protein (6.3-8.2) g/dL Albumin (3.5-5.0) g/dL 04/24/24 04/24/24 04/24/24 Range/Units 06:55 06:55 11:41 RBC 3.68 L (3.80-5.40) m/uL Hgb 9.5 L (11.4-16.0) gm/dL Hct 33.4 L (34.0-46.0) % MCHC 28.4 L (31.0-37.0) g/dL RDW 18.3 H (11.5-15.5) % Lymphocytes # 0.9 L (1.0-4.8) k/uL Eosinophils # 0.9 H (0-0.7) k/uL Carbon Dioxide 31 H (22-30) mmol/L BUN 54 H (7-17) mg/dL Creatinine 1.93 H (0.52-1.04) mg/dL POC Glucose (mg/dL) 156 H (70-110) mg/dL Calcium 8.0 L (8.4-10.2) mg/dL Total Protein 5.8 L (6.3-8.2) g/dL Albumin 2.9 L (3.5-5.0) g/dL Microbiology - Last 24 Hours (Table) 04/23/24 11:15 Gram Stain - Preliminary Buttock 04/22/24 12:36 Urine Culture - Final Urine,Catheterized Pseudomonas aeruginosa 04/21/24 18:30 Blood Culture - Preliminary Blood
[2024-04-24] MEDS ORDERED: CEFEPIME 1 GM in SODIUM CHLORIDE 0.9% 50 ML IVPB SCH (13:00)
--- NOTE | 2024-04-24 13:01 | P.PN ---
Subjective HISTORY OF PRESENT ILLNESS: This is a 84-year-old female with a past medical history significant for congestive heart failure, DVT, hypertension, and chronic kidney disease. 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 We have been asked to see the patient in consultation for CHF. Patient examined at the bedside in the emergency room. Patient initially presented to hospital chief complaint of shortness of breath. She denied having any chest pain or pressure. Patient was found to be in CHF. Additionally she was found to have hyperkalemia and worsening kidney function. Patient's initial EKG revealed junctional rhythm. Bedside telemetry reveals sinus mechanism. DIAGNOSTICS: - EKG reveals junctional rhythm - Chest xray correlate for CHF with pulmonary vascular congestion. Small to moderate left pleural effusion with adjacent atelectasis and/or consolidation. - Laboratory data: WBC 8.3. Hemoglobin 9.6. Platelet count 245. Sodium 138. Potassium 5.5. BUN 63. Creatinine 2.44. Troponin negative x 1. proBNP 7660. - Current home cardiac medications include hydralazine 25 mg 3 times a day, amlodipine 5 mg daily, Demadex 20 mg twice a day, midodrine 5 mg 3 times a day, Eliquis 5 mg twice a day - Most recent echocardiogram obtained in March 2023 revealed ejection fraction 60 to 65%, mild pulm hypertension, aortic sclerosis without any stenosis, and mild TR - Cardiac catheterization history: Unknown 04/23/2024 Patient examined this morning the bedside. Patient currently denies chest pain or pressure. She denies shortness of breath. She remains on IV fluids at 75 cc an hour. Echocardiogram completed revealing ejection fraction 65 to 70%, hyperdynamic left ventricular systolic function, mid cavitary gradient 43 mmHg, trace to mild MR, mild aortic stenosis, no aortic regurgitation, mild to moderate tricuspid regurgitation, mild mitral stenosis 04/24/2024 Patient examined this morning at the bedside. Patient currently denies chest pain or pressure. She denies shortness of breath. Her IV fluids have been d iscontinued. Creatinine today is improved at 1.93. Vital signs are stable. PHYSICAL EXAM: VITAL SIGNS: Reviewed. GENERAL: Well-developed in no acute distress. HEENT: Head is normocephalic. Pupils are equal, round. Sclerae anicteric. Mucous membranes of the mouth are moist. Neck supple. No JVD or thyromegaly LUNGS: Respirations even and unlabored. Lungs diminished HEART: Regular rate and rhythm. S1 and S2 heard. Systolic murmur noted ABDOMEN: Soft. Nondistended. Nontender. EXTREMITIES: Normal range of motion. No clubbing or cyanosis. Peripheral pulses intact. Mild bilateral lower extremity edema with chronic skin discoloration and scaly dry patches NEUROLOGIC: Awake and alert. Oriented x 3. ASSESSMENT: Acute on chronic heart failure with preserved EF, 65 to 70% Small to moderate left pleural effusion Junctional rhythm, likely secondary to hyperkalemia, since resolved, maintaining sinus mechanism Hyperkalemia, 7.0 Acute on chronic kidney disease History of DVT, on Eliquis outpatient Recent diagnosis of UTI, on Bactrim outpatient Chronic indwelling urinary catheter History of bowel resection with ostomy History of left femur fracture, bedridden at baseline since 10/2023 PLAN: Continue current cardiac medications Continue to hold amlodipine and hydralazine Begin low-dose metoprolol 12.5 mg daily Continue anticoagulation with Eliquis Monitor kidney function Diuretic management per nephrology. Currently off diuretics. Farxiga contraindicated secondary to UTI and chronic indwelling urinary catheter Continue telemetry monitoring No further recommendations from a cardiac standpoint We will sign off. Please reconsult if needed. Nurse practitioner note has been reviewed by physician. Signing provider agrees with the documented findings, assessment, and plan of care documented by [employer] DEVELOPER as a scribe. Objective - Vital Signs Vital signs: Vital Signs Temp 97.6 F 04/24/24 08:00 Pulse 87 04/24/24 08:00 Resp 16 04/24/24 08:00 BP 115/46 04/24/24 08:00 Pulse Ox 96 04/24/24 08:00 FiO2 Intake & Output 04/23/24 04/24/24 04/24/24 18:59 06:59 18:59 Intake Total 840 540 180 Output Total 600 575 Balance 240 -35 180 Weight 85.5 kg 87.5 kg Intake: Oral 840 540 180 Output: Urine 600 575 Other: Voiding Method Indwelling Catheter Indwelling Catheter Indwelling Catheter - Labs CBC & Chem 7: 04/24/24 06:55 04/24/24 06:55 Labs: Abnormal Lab Results - Last 24 Hours (Table) 04/23/24 04/23/24 04/24/24 Range/Units 16:39 20:36 06:11 RBC (3.80-5.40) m/uL Hgb (11.4-16.0) gm/dL Hct (34.0-46.0) % MCHC (31.0-37.0) g/dL RDW (11.5-15.5) % Lymphocytes # (1.0-4.8) k/uL Eosinophils # (0-0.7) k/uL Carbon Dioxide (22-30) mmol/L BUN (7-17) mg/dL Creatinine (0.52-1.04) mg/dL POC Glucose (mg/dL) 140 H 164 H 111 H (70-110) mg/dL Calcium (8.4-10.2) mg/dL Total Protein (6.3-8.2) g/dL Albumin (3.5-5.0) g/dL 04/24/24 04/24/24 04/24/24 Range/Units 06:55 06:55 11:41 RBC 3.68 L (3.80-5.40) m/uL Hgb 9.5 L (11.4-16.0) gm/dL Hct 33.4 L (34.0-46.0) % MCHC 28.4 L (31.0-37.0) g/dL RDW 18.3 H (11.5-15.5) % Lymphocytes # 0.9 L (1.0-4.8) k/uL Eosinophils # 0.9 H (0-0.7) k/uL Carbon Dioxide 31 H (22-30) mmol/L BUN 54 H (7-17) mg/dL Creatinine 1.93 H (0.52-1.04) mg/dL POC Glucose (mg/dL) 156 H (70-110) mg/dL Calcium 8.0 L (8.4-10.2) mg/dL Total Protein 5.8 L (6.3-8.2) g/dL Albumin 2.9 L (3.5-5.0) g/dL Microbiology - Last 24 Hours (Table) 04/23/24 11:15 Gram Stain - Preliminary Buttock 04/22/24 12:36 Urine Culture - Final Urine,Catheterized Pseudomonas aeruginosa 04/21/24 18:30 Blood Culture - Preliminary Blood
[2024-04-24] MEDS: AZTREONAM 1 GM in SODIUM CHLORIDE 0.9% 50 ML IVPB SCH (15:32)
[2024-04-24 16:33] LABS: Glucose,Whole Blood 179 mg/dL (70-110)
[2024-04-24] MEDS: CEFEPIME 2 GM in SODIUM CHLORIDE 0.9% 100 ML IVPB SCH (18:59)
[2024-04-24 20:18] LABS: Glucose,Whole Blood 158 mg/dL (70-110)
[2024-04-25 04:57] LABS: Glucose,Whole Blood 121 mg/dL (70-110)
[2024-04-25] MEDS: methylPREDNISolone SOD SUCCI 40 MG/ML 1 ML VIAL IV STA (06:04)
[2024-04-25] MEDS: diphenhydrAMINE 50 MG/ML 1 ML VIAL IVP STA (06:04)
[2024-04-25 06:20] LABS: Glucose,Whole Blood 120 mg/dL (70-110)
[2024-04-25 07:25] LABS: African American GFR (CKD) 30 (>60 ml/min/1.73 sqM); Anion Gap 3 mmol/L; Blood Urea Nitrogen 64 mg/dL (7-17); Calcium 8.1 mg/dL (8.4-10.2); Carbon Dioxide 33 mmol/L (22-30); Chloride 101 mmol/L (98-107); Glucose 96 mg/dL (74-99); Non-African American GFR(CKD) 26 (>60 ml/min/1.73 sqM); Potassium 5.3 mmol/L (3.5-5.1); Sodium 137 mmol/L (137-145)
--- NOTE | 2024-04-25 08:27 | CDI ---
Documentation Clarification Form Date: 04/25/2024 08:25:01 AM From: Luz Soliz RN, CCDS Phone: [phone] Admit Date: 04/21/2024 02:40:00 PM Patient Name: Eden Lyons Visit Number: [id number] Discharge Date: ATTENTION: The Clinical Documentation Specialists (CDI) and [facility] Coding Staff appreciate your assistance in clarifying documentation. Please respond to the clarification below the line at the bottom and electronically sign. The CDI & [facility] Coding staff will review the response and follow-up if needed. Please note: Queries are made part of the Legal Health Record. If you have any questions, please contact the author of this message via ITS. Doctor/Provider: Lul Moe UTI is documented in the ID consult on 04/22/24 as catheter-associated urinary tract infection and patient has a chronic indwelling Craven catheter. Additional clarification regarding the etiology of the UTI is requested. History/Risk Factors: Diabetes Mellitus, Hyperlipidemia, Hypertension, Renal Disease, Skin Disorder Clinical Indicators: 84-year-old female [facility] Chronic indwelling urinary catheter. Urinalysis showed few bacteria and large leukocyte esterase Urine culture: 04/22/24 Pseudomonas aeruginosa Lab results: 04/21/24 WBC 9.0 HGB 11.0, k+ 6.9 BUN 61, CR 2.46, Ma+ 2.7, BNP 7660 Treatment: Rocephin 1 GM IVPBQ 24 HRS 04/21-04/24 Please clarify the etiology of the UTI, if known: [ x ] UTI due to Chronic Craven catheter, Present on admission [ ] UTI not related to Craven catheter, Present on admission [ ] Other condition, please specify [ ] Unable to determine (Template Last Revised: October 2020) MTDD
--- NOTE | 2024-04-25 11:11 | P.PN ---
Subjective Progress Note Date: 04/25/24 Principal diagnosis: Shortness of breath. Patient is an 84-year-old female with past medical history significant for multiple medical comorbidities including hypertension, diabetes mellitus, chronic kidney disease, colon cancer with previous bowel resection and ostomy, femur fracture leaving her bedridden, chronic bilateral lower extremity wounds, DVT anticoagulated on Eliquis. Also, recently treated by her PCP, on an outpatient basis for UTI with Bactrim. Patient is currently in the emergency department room 9, she states that over the last 2 to 3 months she has been pr ogressively more short of breath. She may have history of CHF. States that her lower extremities are chronically swollen. She does take Tosemide at home. Denies missing doses. Chest x-ray showing stable cardiac silhouette, pulmonary vascular congestion, and small to moderate left-sided pleural effusion with adjacent atelectasis and/or consolidation. Patient denies any infectious symptoms. She does have an occasional nonproductive cough. No fevers, chills, sputum production, chest pain. CBC: WBC count 9, hemoglobin 11, hematocrit 38.5, platelets 312. CMP: Sodium 137, potassium 6.9, chloride 98, serum bicarb 25, BUN 61, creatinine 2.46, glucose 138. Lactic 1.8. LFTs unremarkable. Troponin less than 0.012. NT proBNP 7660. Ultrasound of kidneys/renal/bladder showing bilateral chronic renal disease. No hydronephrosis. Overall limited exam. Urinalysis showing few bacteria and large leukocyte esterase. She has a chronic indwelling urinary catheter. Reportedly, last changed Monday. Kidney function is worse than baseline. Reportedly undergoing current treatment for UTI outpatient with Bactrim. Was started on Rocephin in the emergency department. Hyperkalemia has been treated with the hyperkalemia cocktail. Also, receiving doses of Lokelma. Most recent potassium down to 5.8. EKG: Appears junctional rhythm with a rate of 56 bpm. No acute ischemic changes. No hyperacute T waves or QRS widening. QT/QTc 398/391. Patient is currently resting comfortably in the stretcher. She is on 2 L nasal cannula. SpO2 is reading 100%. She does not ambulate and has been bedbound since October. Does not appear dyspneic at rest. Normal saline infusing at 75 mL/h. Hemodynamics appear stable. Progress note dated April 23, 2024. 84-year-old female admitted with a diagnosis of congestive heart failure, urinary tract infection. She is seen today in room 366. He is currently on 2 L of oxygen by nasal cannula. She is not receiving any IV fluids. She continues on IV Rocephin. Current laboratory data includes a white count 7.3, hemoglobin 9.4, hematocrit 31.4, and a normal platelet count. Sodium 137, potassium 5.1, chlorides 100, CO2 28, BUN 57, creatinine 2.10. Glucose is 252. Calcium is 8. Albumin is 3.0. Urine is revealing evidence of gram-negative bacilli. It is yet to be identified. Progress note dated April 24, 2024. 84-year-old female who was admitted with a diagnosis of congestive heart failure, urinary tract infection, and lower extremity wounds. The patient's urine tested positive for Pseudomonas. She currently is on Rocephin. She is being followed by infectious diseases. White count is 5.9, hemoglobin 9.5, hematocrit 33.4, platelet count 240,000. Sodium 138, potassium 4.9, chlorides 103, CO2 31, BUN 54, and creatinine 1.93. Calcium is 8. Albumin is 2.9. Progress note dated April 25, 2024. 84-year-old female admitted with a diagnosis of CHF. The patient is seen today in room 366. She is not receiving any IV fluids. She continues on nasal cannula 2 L. She appears in no acute distress. Current labs include a sodium 137, potassium 5.3, chlorides 101, CO2 33, BUN 64, and creatinine 1.75. Glucose is 96. Calcium is 8.1. Urine culture was positive for Pseudomonas aeruginosa. Wound culture on the buttock was positive for gram-negative bacilli and Pseudomonas. The patient is currently not on an antibiotic. ID should be consulted. Objective - Vital Signs Vital signs: Vital Signs Temp 98.0 F 04/24/24 20:00 Pulse 92 04/25/24 08:05 Resp 16 04/25/24 08:00 BP 106/43 04/25/24 08:00 Pulse Ox 94 L 04/25/24 08:00 FiO2 Intake & Output 04/24/24 04/25/24 04/25/24 18:59 06:59 18:59 Intake Total 540 180 Output Total 500 850 250 Balance 40 -850 -70 Weight 88 kg Intake: Oral 540 180 Output: Urine 300 350 Stool 200 500 250 Other: Voiding Method Indwelling Catheter Indwelling Catheter Indwelling Catheter - Exam No acute distress, oriented 3. Currently on 2 L nasal cannula. HEENT examination is grossly unremarkable. Mucous membranes are moist. No oral lesions. Neck supple. Full range of motion. No adenopathy thyromegaly or neck vein distention. Cardiovascular examination reveals regular rhythm rate. S1-S2 normal. No S3 or S4. No discernible murmur noted. Heart sounds are distant. Lungs reveal diminished breath sounds. Few crackles. No rhonchi. No wheezes. Abdomen soft bowel sounds are heard. No masses or tenderness. Colostomy noted. Extremities are wrapped. Skin is without rash or lesion. Neurologic examination is brief but nonfocal. - Labs CBC & Chem 7: 04/24/24 06:55 04/25/24 06:33 Labs: Abnormal Lab Results - Last 24 Hours (Table) 04/24/24 04/24/24 04/24/24 Range/Units 11:41 16:29 20:16 Potassium (3.5-5.1) mmol/L Carbon Dioxide (22-30) mmol/L BUN (7-17) mg/dL Creatinine (0.52-1.04) mg/dL POC Glucose (mg/dL) 156 H 179 H 158 H (70-110) mg/dL Calcium (8.4-10.2) mg/dL 04/25/24 04/25/24 04/25/24 Range/Units 04:55 06:19 06:33 Potassium 5.3 H (3.5-5.1) mmol/L Carbon Dioxide 33 H (22-30) mmol/L BUN 64 H (7-17) mg/dL Creatinine 1.75 H (0.52-1.04) mg/dL POC Glucose (mg/dL) 121 H 120 H (70-110) mg/dL Calcium 8.1 L (8.4-10.2) mg/dL Microbiology - Last 24 Hours (Table) 04/23/24 11:15 Gram Stain - Preliminary Buttock Wound Culture - Preliminary Pseudomonas aeruginosa Gram Neg Bacilli 04/21/24 18:30 Blood Culture - Preliminary Blood 04/22/24 12:36 Urine Culture - Final Urine,Catheterized Pseudomonas aeruginosa Assessment and Plan Assessment: Suspect acute exacerbation of diastolic CHF. Small to moderate left-sided pleural effusion. Acute dyspnea, secondary to above. Acute on chronic kidney injury. Urinary tract infection secondary to Pseudomonas aeruginosa. Buttock wound culture positive for Pseudomonas aeruginosa Severe hyperkalemia, resolved. Chronic indwelling urinary catheter. Diabetes mellitus, type II. History of hypertension. History of hyperlipidemia. History of bowel resection and ostomy. History of left femur fracture, currently bedridden since October,. Chronic bilateral lower extremity swelling and wounds. History of DVT. Plan: Plan dated April 23, 2024. The patient is seen today in room 366. The patient is on 2 L of oxygen. The urinary sampling, showing gram-negative bacilli. It is yet to be identified. She continues on Rocephin. She is not receiving any IV fluids. The lower extremities are wrapped. We will continue to follow. CODE STATUS should be addressed. She remains a full code at this time. Plan dated April 24, 2024. The patient is seen in room 366. She remains on O2 at 2 L. No IV fluids. She continues on Rocephin. She is being followed by infectious diseases. Her urine did test positive for Pseudomonas. Additional recommendations and suggestions are forthcoming. She remains a full code. Should be addressed. Labs, x-rays, and all medications have been reviewed. Plan dated April 25, 2024. Urinary cultures were positive for Pseudomonas. Buttock cultures, were also positive for Pseudomonas. Infectious disease doctor is following, and should make decisions about antibiotics. From the pulmonary standpoint, she is relatively stable. She was admitted with an exacerbation of her diastolic CHF. She continues on 2 L. She appears not to have any respiratory distress. Labs, x-rays, and medications are reviewed. Time with Patient: Less than 30
--- NOTE | 2024-04-25 11:16 | P.PN ---
Subjective Patient seen at bedside. noticed to have pulled out the IV. Some bleeding noted on the account. Serum creatinine decreased to 1.7 today. Serum potassium at 5.3. Objective - Vital Signs Vital signs: Vital Signs Temp 98.0 F 04/24/24 20:00 Pulse 92 04/25/24 08:05 Resp 16 04/25/24 08:00 BP 106/43 04/25/24 08:00 Pulse Ox 94 L 04/25/24 08:00 FiO2 Intake & Output 04/24/24 04/25/24 04/25/24 18:59 06:59 18:59 Intake Total 540 180 Output Total 500 850 250 Balance 40 -850 -70 Weight 88 kg Intake: Oral 540 180 Output: Urine 300 350 Stool 200 500 250 Other: Voiding Method Indwelling Catheter Indwelling Catheter Indwelling Catheter - Exam patient is awake, comfortable, no acute distress. Examination of the heart S1 and S2 Examination of the lungs bilateral breath sounds are heard Abdomen is soft nontender. Colostomy bag noted. Examination of lower extremities shows no significant edema, chronic skin changes - Labs CBC & Chem 7: 04/24/24 06:55 04/25/24 06:33 Labs: Abnormal Lab Results - Last 24 Hours (Table) 04/24/24 04/24/24 04/24/24 Range/Units 11:41 16:29 20:16 Potassium (3.5-5.1) mmol/L Carbon Dioxide (22-30) mmol/L BUN (7-17) mg/dL Creatinine (0.52-1.04) mg/dL POC Glucose (mg/dL) 156 H 179 H 158 H (70-110) mg/dL Calcium (8.4-10.2) mg/dL 04/25/24 04/25/24 04/25/24 Range/Units 04:55 06:19 06:33 Potassium 5.3 H (3.5-5.1) mmol/L Carbon Dioxide 33 H (22-30) mmol/L BUN 64 H (7-17) mg/dL Creatinine 1.75 H (0.52-1.04) mg/dL POC Glucose (mg/dL) 121 H 120 H (70-110) mg/dL Calcium 8.1 L (8.4-10.2) mg/dL Microbiology - Last 24 Hours (Table) 04/23/24 11:15 Gram Stain - Preliminary Buttock Wound Culture - Preliminary Pseudomonas aeruginosa Gram Neg Bacilli 04/21/24 18:30 Blood Culture - Preliminary Blood 04/22/24 12:36 Urine Culture - Final Urine,Catheterized Pseudomonas aeruginosa Assessment and Plan Assessment: 1. Hyperkalemia, 2/2 to MAYRA and use of bactrim, continues to trend down since admission, no met. acidosis (improved) 2. MAYRA, in the setting of CKD stage IIIb, ATN from low BP, volume depletion, hyaline casts noted on UA (improved) 3. Respiratory acidosis 4. UTI 5. Anemia rule out GI bleed Plan: Continue off of IV fluids Continue to hold amlodipine and hydralazineas BP is low. check stool for occult blood Repeat bladder scan Maintain on potassium diet
[2024-04-25 12:00] LABS: Glucose,Whole Blood 209 mg/dL (70-110)
--- NOTE | 2024-04-25 12:28 | P.PN ---
Subjective Progress Note Date: 04/25/24 84-year-old female multiple comorbidities presents to the emergency department with dyspnea upon waking. Patient has multiple comorbidities. States that she feels short of breath. She is a poor historian. She denies any pain. Denies any fever, chills or night sweats. She does report a cough. Patient arrives from home. Patient is sleepy and not able to provide much history; family is not available at bedside Blood work reveals WBC of 9.2, hemoglobin of 11, platelet count of 312, sodium 137, potassium 6.7, BUNs/creatinine of 61/2.46, magnesium elevated at 2.7, BNP of 7660, lactic acid of 1.8, troponin less than 0.012, influenza, RSV and COVID- 19 PCR is negative. UA is positive for leukocyte esterase, WBCs and bacteria EKG strangely shows no P waves and is bradycardic. Laboratory evaluation obtained. CBC and coag panel is negative. Metabolic panel shows potassium 6.7 that elevated renal function. Urinalysis shows greater than 182 white blood cells. Viral testing negative. Chest x-ray shows heart failure. Patient well- appearing from respiratory standpoint. Patient given hyperkalemia cocktail. 04/22. Patient seen and examined. Blood work done this morning showed WBC 8.3, hemoglobin 9.6, sodium 135, potassium 5.6, BUN 65, creatinine 2.51. Denies any shortness of breath. 04/23. Patient seen and examined. Blood work done this morning showed WBC 7.3, hemoglobin 9.4, platelet count 232, sodium 137, potassium 5.1, BUN 57, creatinine 2.10. 2D echo done showed LVH with hyperdynamic systolic function with systolic function of 65%, moderate pulmonary hypertension. States she feels much better. 04/24. Patient seen and examined. Complaining of cough. Denies any shortness of breath at rest. 04/25. Patient seen and examined. Patient overnight developed reaction to aspirin. REVIEW OF SYSTEMS: CONSTITUTIONAL: No fever, no malaise,. CARDIOVASCULAR: No chest pain, no palpitations, no syncope. PULMONARY: As mentioned above GASTROINTESTINAL: No diarrhea, no nausea, no vomiting, no abdominal pain. NEUROLOGICAL: No headaches, no weakness, PHYSICAL EXAMINATION: GENERAL: The patient is alert and oriented x3, not in any acute distress. Well developed, well nourished. HEENT: Pupils are round and equally reacting to light. EOMI. No scleral icterus. No conjunctival pallor. Normocephalic, atraumatic. No pharyngeal erythema. No thyromegaly. CARDIOVASCULAR: S1 and S2 present. No murmurs, rubs, or gallops. PULMONARY: Chest is clear to auscultation, no wheezing or crackles. ABDOMEN: Soft, nontender, nondistended, normoactive bowel sounds. No palpable organomegaly. MUSCULOSKELETAL: No joint swelling or deformity. EXTREMITIES: Chronic lower extremity venous stasis changes and scaly pigmentation NEUROLOGICAL: Gross neurological examination did not reveal any focal deficits. SKIN: Right gluteal pressure ulcer Assessment and plan Acute on chronic diastolic CHF Stage III right gluteal pressure ulcer Hyperkalemia Acute kidney injury Left pleural effusion UTI Hypertension Diabetes mellitus History of hyperlipidemia History of bowel resection and ostomy History of left femur fracture, currently bedridden since October, Chronic bilateral lower extremity swelling and wounds History of DVT, anticoagulated on Eliquis Monitor vital signs Monitor CBC Monitor CMP Continue telemetry monitoring Avoid nephrotoxic agents Low potassium diet Strict I's and O's, daily weights Continue Eliquis Continue meropenem Amlodipine and hydralazine on hold secondary to soft blood pressure Ordered wound care Nephrology following Cardiology following ID following Labs and medication were reviewed.. Continue same treatment. Continue with symptomatic treatment. Resume home medication. Monitor labs and vitals. DVT and GI prophylaxis. Further recommendations as per clinical course of the patient Dictation was produced using [employer] dictation software. please excuse any grammatical, word or spelling errors. Objective - Vital Signs Vital signs: Vital Signs Temp 98.0 F 04/24/24 20:00 Pulse 92 04/25/24 08:05 Resp 16 04/25/24 08:00 BP 106/43 04/25/24 08:00 Pulse Ox 94 L 04/25/24 08:00 FiO2 Intake & Output 04/24/24 04/25/24 04/25/24 18:59 06:59 18:59 Intake Total 540 180 Output Total 500 850 250 Balance 40 -850 -70 Weight 88 kg Intake: Oral 540 180 Output: Urine 300 350 Stool 200 500 250 Other: Voiding Method Indwelling Catheter Indwelling Catheter Indwelling Catheter - Labs CBC & Chem 7: 04/24/24 06:55 04/25/24 06:33 Labs: Abnormal Lab Results - Last 24 Hours (Table) 04/24/24 04/24/24 04/25/24 Range/Units 16:29 20:16 04:55 Potassium (3.5-5.1) mmol/L Carbon Dioxide (22-30) mmol/L BUN (7-17) mg/dL Creatinine (0.52-1.04) mg/dL POC Glucose (mg/dL) 179 H 158 H 121 H (70-110) mg/dL Calcium (8.4-10.2) mg/dL 04/25/24 04/25/24 04/25/24 Range/Units 06:19 06:33 11:58 Potassium 5.3 H (3.5-5.1) mmol/L Carbon Dioxide 33 H (22-30) mmol/L BUN 64 H (7-17) mg/dL Creatinine 1.75 H (0.52-1.04) mg/dL POC Glucose (mg/dL) 120 H 209 H (70-110) mg/dL Calcium 8.1 L (8.4-10.2) mg/dL Microbiology - Last 24 Hours (Table) 04/23/24 11:15 Gram Stain - Preliminary Buttock Wound Culture - Preliminary Pseudomonas aeruginosa Gram Neg Bacilli 04/21/24 18:30 Blood Culture - Preliminary Blood
--- NOTE | 2024-04-25 14:39 | P.PN ---
Subjective Progress Note Date: 04/24/24 Principal diagnosis: Reason for follow-up is catheter assisted UTI Patient is a 84-year-old female with a past medical history significant for diabetes mellitus hypertension hyperlipidemia renal disorder, bilateral lower extremity ulcers as well as urinary retention requiring chronic indwelling Craven catheter presented to hospital with increasing shortness of breath apparently was getting back from an outpatient setting for UTI did have positive UA suprapubic pain and discomfort concerning for cystitis. On today's evaluation that is 04/24/2024,the patient denies any fever or any chills, patient is breathing comfortably on 2 L nasal cannula oxygen, the patient denies chest pain shortness of breath and no significant cough, patient denies abdominal pain, no nausea vomiting or diarrhea. Patient denies any worsening pain to the heel or the sacral wound. Patient white count 5.9, creatinine 1.93 urine has been finalized with the Pseudomonas aeruginosa sensitive to cefepime Objective - Vital Signs Vital signs: Vital Signs Temp 97.6 F 04/24/24 08:00 Pulse 87 04/24/24 08:00 Resp 16 04/24/24 08:00 BP 115/46 04/24/24 08:00 Pulse Ox 96 04/24/24 08:00 FiO2 Intake & Output 04/23/24 04/24/24 04/24/24 18:59 06:59 18:59 Intake Total 840 540 180 Output Total 600 575 Balance 240 -35 180 Weight 85.5 kg 87.5 kg Intake: Oral 840 540 180 Output: Urine 600 575 Other: Voiding Method Indwelling Catheter Indwelling Catheter Indwelling Catheter - Exam GENERAL DESCRIPTION: An elderly female lying in bed in no distress RESPIRATORY SYSTEM: Unlabored breathing , decreased breath sounds at bases HEART: S1 S2 regular rate and rhythm , ABDOMEN: Soft , no tenderness EXTREMITIES: Bilateral heel wounds are healing well and no evidence of cellulitis - Labs CBC & Chem 7: 04/24/24 06:55 04/25/24 06:33 Labs: Abnormal Lab Results - Last 24 Hours (Table) 04/23/24 04/23/24 04/24/24 Range/Units 16:39 20:36 06:11 RBC (3.80-5.40) m/uL Hgb (11.4-16.0) gm/dL Hct (34.0-46.0) % MCHC (31.0-37.0) g/dL RDW (11.5-15.5) % Lymphocytes # (1.0-4.8) k/uL Eosinophils # (0-0.7) k/uL Carbon Dioxide (22-30) mmol/L BUN (7-17) mg/dL Creatinine (0.52-1.04) mg/dL POC Glucose (mg/dL) 140 H 164 H 111 H (70-110) mg/dL Calcium (8.4-10.2) mg/dL Total Protein (6.3-8.2) g/dL Albumin (3.5-5.0) g/dL 04/24/24 04/24/24 04/24/24 Range/Units 06:55 06:55 11:41 RBC 3.68 L (3.80-5.40) m/uL Hgb 9.5 L (11.4-16.0) gm/dL Hct 33.4 L (34.0-46.0) % MCHC 28.4 L (31.0-37.0) g/dL RDW 18.3 H (11.5-15.5) % Lymphocytes # 0.9 L (1.0-4.8) k/uL Eosinophils # 0.9 H (0-0.7) k/uL Carbon Dioxide 31 H (22-30) mmol/L BUN 54 H (7-17) mg/dL Creatinine 1.93 H (0.52-1.04) mg/dL POC Glucose (mg/dL) 156 H (70-110) mg/dL Calcium 8.0 L (8.4-10.2) mg/dL Total Protein 5.8 L (6.3-8.2) g/dL Albumin 2.9 L (3.5-5.0) g/dL Microbiology - Last 24 Hours (Table) 04/23/24 11:15 Gram Stain - Preliminary Buttock 04/22/24 12:36 Urine Culture - Final Urine,Catheterized Pseudomonas aeruginosa 04/21/24 18:30 Blood Culture - Preliminary Blood Assessment and Plan (1) Catheter-associated urinary tract infection Current Visit: Yes Status: Acute Code(s): T83.511A - I/I REACT D/T INDWELLING URETHRAL CATHETER, INIT; N39.0 - URINARY TRACT INFECTION, SITE NOT SPECIFIED SNOMED Code(s): 838914163 (2) Allergy to multiple antibiotics Current Visit: No Status: Acute Code(s): Z88.1 - ALLERGY STATUS TO OTHER ANTIBIOTIC AGENTS SNOMED Code(s): 770469047 Plan: 1patient presented to hospital with shortness of breath and this patient noticed to have worsening of her kidney function elevated potassium could be related to Bactrim DS the patient was taking outpatient setting for the UTI, patient did have positive UA suprapubic discomfort a complaint of catheter associated tract infection not entirely excluded. 2patient with multiple antibiotic ALLERGIES that would limit the number of antibiotic safe to use 3patient urine culture has been finalized with the Pseudomonas aeruginosa we will discontinue Rocephin and start the patient on cefepime. 4patient did have bilateral lower extremity wound which are drying out and mostly dry scaly skin will advise moisturizing cream to bilateral lower extremities. No need for Thera honey which will be discontinued Dictation was produced using [employer] dictation software. please excuse any gramm atical, word or spelling errors. Time with Patient: Less than 30
--- NOTE | 2024-04-25 14:41 | P.PN ---
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 On today's evaluation that is 04/25/2024,the patient remains to be afebrile, patient is on 2 L nasal cannula supplemental oxygen and denies any shortness of breath no chest pain or cough.Patient denies having any nausea or vomiting, no abdominal pain and no diarrhea has been reported, patient apparently have some itching blamed on Azactam and there was discontinued this morning. Patient did have a creatinine 1.75 sacral cultures growing Pseudomonas aerugin iker and gram-negative bacilli blood culture has been negative Objective - Vital Signs Vital signs: Vital Signs Temp 98.0 F 04/24/24 20:00 Pulse 92 04/25/24 08:05 Resp 16 04/25/24 08:00 BP 106/43 04/25/24 08:00 Pulse Ox 94 L 04/25/24 08:00 FiO2 Intake & Output 04/24/24 04/25/24 04/25/24 18:59 06:59 18:59 Intake Total 540 180 Output Total 500 850 250 Balance 40 -850 -70 Weight 88 kg Intake: Oral 540 180 Output: Urine 300 350 Stool 200 500 250 Other: Voiding Method Indwelling Catheter Indwelling Catheter Indwelling Catheter - Exam GENERAL DESCRIPTION: An elderly female lying in bed in no distress RESPIRATORY SYSTEM: Unlabored breathing , decreased breath sounds at bases HEART: S1 S2 regular rate and rhythm , ABDOMEN: Soft , no tenderness, patient did have a stage III sacral pressure ulcer but no surrounding swelling redness or foul-smelling drainage EXTREMITIES: Bilateral heel wounds are healing well and no evidence of cellulitis - Labs CBC & Chem 7: 04/24/24 06:55 04/25/24 06:33 Labs: Abnormal Lab Results - Last 24 Hours (Table) 04/24/24 04/24/24 04/25/24 Range/Units 16:29 20:16 04:55 Potassium (3.5-5.1) mmol/L Carbon Dioxide (22-30) mmol/L BUN (7-17) mg/dL Creatinine (0.52-1.04) mg/dL POC Glucose (mg/dL) 179 H 158 H 121 H (70-110) mg/dL Calcium (8.4-10.2) mg/dL 04/25/24 04/25/24 04/25/24 Range/Units 06:19 06:33 11:58 Potassium 5.3 H (3.5-5.1) mmol/L Carbon Dioxide 33 H (22-30) mmol/L BUN 64 H (7-17) mg/dL Creatinine 1.75 H (0.52-1.04) mg/dL POC Glucose (mg/dL) 120 H 209 H (70-110) mg/dL Calcium 8.1 L (8.4-10.2) mg/dL Microbiology - Last 24 Hours (Table) 04/23/24 11:15 Gram Stain - Preliminary Buttock Wound Culture - Preliminary Pseudomonas aeruginosa Gram Neg Bacilli 04/21/24 18:30 Blood Culture - Preliminary Blood 04/22/24 12:36 Urine Culture - Final Urine,Catheterized Pseudomonas aeruginosa Assessment and Plan (1) Catheter-associated urinary tract infection Current Visit: Yes Status: Acute Code(s): T83.511A - I/I REACT D/T INDWELLING URETHRAL CATHETER, INIT; N39.0 - URINARY TRACT INFECTION, SITE NOT SPECIFIED SNOMED Code(s): 576866397 (2) Allergy to multiple antibiotics Current Visit: No Status: Acute Code(s): Z88.1 - ALLERGY STATUS TO OTHER ANTIBIOTIC AGENTS SNOMED Code(s): 362739755 (3) Stage III pressure ulcer of sacral region Current Visit: Yes Status: Acute Code(s): L89.153 - PRESSURE ULCER OF SACRAL REGION, STAGE 3 SNOMED Code(s): 60065191859005 Plan: 1patient presented to hospital with shortness of breath and this patient noticed to have worsening of her kidney function elevated potassium could be related to Bactrim DS the patient was taking outpatient setting for the UTI, patient did have positive UA suprapubic discomfort a complaint of catheter associated tract infection not entirely excluded. 2patient with multiple antibiotic ALLERGIES that would limit the number of antibiotic safe to use 3patient urine culture has been finalized with the Pseudomonas aeruginosa that is sensitive to cefepime but resistant to aztreonam which has been discontinued meropenem has been added 4patient also have a stage III sacral ulcer with a culture growing Pseudomonas aeruginosa and gram-negative with ID sensitivities pending we will go ahead check inflammatory markers and CT of the sacrum to make sure evidence of any sacral osteomyelitis that would determine the duration of antibiotics Dictation was produced using [employer] software. please excuse any grammatical, word or spelling errors. Time with Patient: Less than 30
--- NOTE | 2024-04-25 16:02 | CT ---
EXAMINATION TYPE: CT sacrum wo con DATE OF EXAM: 04/25/2024 COMPARISON: 11/05/2023 HISTORY: 84-year-old female Sacral wound, poor GFR TECHNIQUE: CT of the sacrum without IV contrast. Coronal and sagittal reconstructions performed. CT DLP: 465.1 mGycm Automated exposure control for dose reduction was used. FINDINGS: Generalized anasarca changes. Presacral edema. Some distended small bowel loops with air-fluid level s, dilated up to 4.1 cm, nonspecific. Craven catheter is in place but there is some circumferential wa ll thickening also present. Some circumferential wall thickening of the rectum all with Patel's pouch noted. There appears to b e a 2 cm long metallic needlelike density within the rectum that needs clinical correlation. There is moderate degenerative disc disease L4-L5 and L5-S1 as well as hypertrophic facet arthropathy . There is a superficial wound overlying the right paramedian coccyx. No underlying osseous destruction . Suspect some embolization material left lower quadrant mesentery. Moderate degenerative change of both hips. Patchy osteopenia suspected. IMPRESSION: 1. SUPERFICIAL DECUBITUS ULCER RIGHT PARAMEDIAN POSTERIOR TISSUES OVERLYING THE COCCYX. NO ABSCESS AN D NO CT FINDINGS OF UNDERLYING OSTEOMYELITIS. 2. GENERALIZED ANASARCA CHANGE. SCATTERED DISTENDED SMALL BOWEL LOOPS SOME WITH WALL THICKENING. THER E IS A PATEL'S POUCH AND ADDITIONAL WALL THICKENING OF THE VISUALIZED RECTUM. CONSIDER ENTEROCOLITI S. 3. IN ADDITION, THERE IS A 2 CM LONG NEEDLE LIKE FOREIGN BODY WITHIN THE RECTUM. CLINICALLY CORRELATE . [facility], , 04/25/2024 3:59 PM
[2024-04-25 16:48] LABS: Glucose,Whole Blood 202 mg/dL (70-110)
[2024-04-25] MEDS: MEROPENEM 1 GM in SODIUM CHLORIDE 0.9% 100 ML IVPB SCH (17:04)
[2024-04-25 18:14] LABS: Appearance,Urine Clear (Clear); Bacteria,Urine Rare /hpf; Bilirubin,Urine Negative (Negative); Blood,Urine Negative (Negative); Budding Yeast,Urine Few /hpf; Color,Urine Colorless; Glucose,Urine (UA) Negative (Negative); Ketones,Urine Negative (Negative); Leukocyte Esterase,Urine Moderate (Negative); Mucus,Urine Rare /hpf; Nitrite,Urine Positive (Negative); Protein,Urine Trace (Negative); RBC,Urine <1 /hpf (0-5); Specific Gravity,Urine 1.015 (1.001-1.035); Squamous Epithelial Cell,Urine 1 /hpf (0-4); Urobilinogen,Urine <2.0 mg/dL (<2.0); WBC,Urine 28 /hpf (0-5)
--- NOTE | 2024-04-25 19:17 | P.CON ---
Consult Note - . Consult date: 04/25/24 Assessment/Plan:: History of Present Illness: 84-year-old female multiple comorbidities presents to the emergency department with dyspnea upon waking. Patient has multiple comorbidities. States that she feels short of breath. She is a poor historian. She denies any pain. Denies any fever, chills or night sweats. She does report a cough. Patient arrives from home. She had a CT sacrum which showed a decubitus ulcer and foreign body in rectum Review of Systems ROS Statement: Those systems with pertinent positive or pertinent negative responses have been documented in the HPI. ROS Other: All systems not noted in ROS Statement are negative. 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, VRE Date of last positivie culture/infection: 10/30/23 MRSA and VRE MDRO Source:: Left Heel-VRE; Left Leg-MRSA Past Surgical History: Appendectomy, Section, Cholecystectomy, Heart Catheterization, Hysterectomy Additional Past Surgical History / Comment(s): pericardial window, surgery mir eyes for glaucoma, cyst removal on abdomen Past Anesthesia/Blood Transfusion Reactions: Blood Transfusion Reaction Additional Past Anesthesia/Blood Transfusion Reaction / Comment(s): reaction to blood transfusion 25-30 yrs ago-"I got red and they pulled it out" Past Psychological History: No Psychological Hx Reported Smoking Status: Former smoker Past Alcohol Use History: None Reported Past Drug Use History: None Reported - Past Family History Father Family Medical History: Cancer Brother(s) Family Medical History: Cancer General Exam - General Exam Comments Initial Comments: PHYSICAL EXAM: General Impression: Alert and oriented x3, not in acute distress, sleeping resting comfortably, air boots to the bilateral feet, indwelling Craven catheter HEENT: Normocephalic atraumatic, extra-ocular movements intact, pupils equal and reactive to light bilaterally, mucous membranes moist. Cardiovascular: Heart regular rate and rhythm Chest: Able to complete full sentences, no retractions, no tachypnea, clear to auscultation bilaterally Abdomen: abdomen soft, non-tender, non-distended, no organomegaly Musculoskeletal: Pulses present and equal in all extremities, no peripheral edema Motor: no focal deficits noted Neurological: CN II-XII grossly intact, no focal motor or sensory deficits noted Skin: Intact with no visualized rashes 84 year old female with sacral decubitus ulcer and foreign body in rectum -Decubitus ulcer is clean and does not require any surgical intervention -Foreign body in rectum likely related to prior surgical intervention. Need need for surgical intervention to remove as it is not causing issues. Patient and son agreeable with plan Saurav Patino DO [facility] [phone]
[2024-04-25 20:21] LABS: Glucose,Whole Blood 182 mg/dL (70-110)
--- NOTE | 2024-04-26 02:04 | P.PN ---
Progress Note - Text Progress Note Date: 04/26/24 Patient Seen and Examined. NAEO. Resting Comfortable VSS General Impression: Alert and oriented x3, not in acute distress, sleeping resting comfortably, air boots to the bilateral feet, indwelling Craven catheter HEENT: Normocephalic atraumatic, extra-ocular movements intact, pupils equal and reactive to light bilaterally, mucous membranes moist. Cardiovascular: Heart regular rate and rhythm Chest: Able to complete full sentences, no retractions, no tachypnea, clear to auscultation bilaterally Abdomen: abdomen soft, non-tender, non-distended, no organomegaly Musculoskeletal: Pulses present and equal in all extremities, no peripheral edema Motor: no focal deficits noted Neurological: CN II-XII grossly intact, no focal motor or sensory deficits noted Skin: Intact with no visualized rashes 84 year old female with sacral decubitus ulcer and foreign body in rectum -Decubitus ulcer is clean and does not require any surgical intervention -Foreign body in rectum likely related to prior surgical intervention. Need need for surgical intervention to remove as it is not causing issues. Patient and son agreeable with plan [facility] [phone]
[2024-04-26 06:31] LABS: Glucose,Whole Blood 104 mg/dL (70-110)
[2024-04-26 08:12] LABS: Anisocytosis Slight; Basophils % (A) 0 %; Eosinophils # (A) 0.3 k/uL (0-0.7); Eosinophils % (A) 5 %; HCT 35.2 % (34.0-46.0); HGB 10.2 gm/dL (11.4-16.0); Hypochromasia Marked; Lymphocytes % (A) 17 %; MCH 26.2 pg (25.0-35.0); MCHC 28.9 g/dL (31.0-37.0); MCV 90.4 fL (80.0-100.0); Mean Platelet Volume 7.3; Monocytes # (A) 0.3 k/uL (0-1.0); Monocytes % (A) 5 %; Neutrophils # (A) 4.4 k/uL (1.3-7.7); Neutrophils % (A) 72 %; Platelet Count 223 k/uL (150-450); RDW 18.5 % (11.5-15.5); WBC 6.1 k/uL (3.8-10.6)
[2024-04-26 08:13] LABS: ALT 6 U/L (4-34); AST 18 U/L (14-36); African American GFR (CKD) 33 (>60 ml/min/1.73 sqM); Albumin 3.3 g/dL (3.5-5.0); Alkaline Phosphatase 94 U/L (38-126); Anion Gap 5 mmol/L; Blood Urea Nitrogen 69 mg/dL (7-17); Calcium 8.7 mg/dL (8.4-10.2); Carbon Dioxide 28 mmol/L (22-30); Chloride 104 mmol/L (98-107); Glucose 86 mg/dL (74-99); Non-African American GFR(CKD) 29 (>60 ml/min/1.73 sqM); Potassium 5.1 mmol/L (3.5-5.1); Sodium 137 mmol/L (137-145); Total Bilirubin 0.3 mg/dL (0.2-1.3); Total Protein 6.5 g/dL (6.3-8.2)
--- NOTE | 2024-04-26 10:07 | P.PN ---
Subjective Patient seen at bedside. No significant overnight events. Serum creatinine continues to decrease, previously 1.75 and today 1.61. Potassium also continues to decrease previously 5.3, and today 5.1. Objective - Vital Signs Vital signs: Vital Signs Temp 98.2 F 04/26/24 03:09 Pulse 77 04/26/24 03:09 Resp 18 04/26/24 03:09 BP 125/61 04/26/24 03:09 Pulse Ox 100 04/26/24 03:09 FiO2 Intake & Output 04/25/24 04/26/24 04/26/24 18:59 06:59 18:59 Intake Total 500 540 118 Output Total 1000 400 700 Balance -500 140 -582 Weight 88.5 kg Intake: Oral 500 540 118 Output: Urine 500 400 700 Stool 500 Other: Voiding Method Indwelling Catheter Indwelling Catheter # Voids 0 # Bowel Movements 0 - Exam patient is drowsy, comfortable, no acute distress. Examination of the heart S1 and S2 Examination of the lungs bilateral breath sounds are heard Abdomen is soft nontender. Colostomy bag noted. Examination of lower extremities shows no significant edema, chronic skin changes - Labs CBC & Chem 7: 04/26/24 07:22 04/26/24 07:22 Labs: Abnormal Lab Results - Last 24 Hours (Table) 04/25/24 04/25/24 04/25/24 Range/Units 11:58 16:47 17:44 Hgb (11.4-16.0) gm/dL MCHC (31.0-37.0) g/dL RDW (11.5-15.5) % BUN (7-17) mg/dL Creatinine (0.52-1.04) mg/dL POC Glucose (mg/dL) 209 H 202 H (70-110) mg/dL Albumin (3.5-5.0) g/dL Urine Protein Trace H (Negative) Urine Nitrite Positive H (Negative) Ur Leukocyte Esterase Moderate H (Negative) Urine WBC 28 H (0-5) /hpf Urine WBC Clumps Rare H (None) /hpf Urine Bacteria Rare H (None) /hpf Urine Mucus Rare H (None) /hpf Urine Yeast (Budding) Few H (None) /hpf 04/25/24 04/26/24 04/26/24 Range/Units 20:19 07:22 07:22 Hgb 10.2 L (11.4-16.0) gm/dL MCHC 28.9 L (31.0-37.0) g/dL RDW 18.5 H (11.5-15.5) % BUN 69 H (7-17) mg/dL Creatinine 1.61 H (0.52-1.04) mg/dL POC Glucose (mg/dL) 182 H (70-110) mg/dL Albumin 3.3 L (3.5-5.0) g/dL Urine Protein (Negative) Urine Nitrite (Negative) Ur Leukocyte Esterase (Negative) Urine WBC (0-5) /hpf Urine WBC Clumps (None) /hpf Urine Bacteria (None) /hpf Urine Mucus (None) /hpf Urine Yeast (Budding) (None) /hpf Microbiology - Last 24 Hours (Table) 04/23/24 11:15 Gram Stain - Preliminary Buttock Wound Culture - Preliminary Pseudomonas aeruginosa Gram Neg Bacilli Assessment and Plan Assessment: 1. Hyperkalemia, 2/2 to MAYRA and use of bactrim, continues to trend down since admission, no met. acidosis (improved) 2. MAYRA, in the setting of CKD stage IIIb, ATN from low BP, volume depletion, hyaline casts noted on UA (improved) 3. Respiratory acidosis 4. UTI, Pseudomonas 5. Anemia rule out GI bleed and iron deficiency anemia Plan: Continue off of IV fluids Continue to hold amlodipine and hydralazineas BP is low. check stool for occult blood Repeat bladder scan shows 145 mL Maintain on low potassium diet
[2024-04-26 10:35] LABS: C Reactive Protein 4.4 mg/dL (<1.0)
[2024-04-26 11:59] VITALS: BMI 30.5
[2024-04-26 12:08] LABS: Glucose,Whole Blood 117 mg/dL (70-110)
--- NOTE | 2024-04-26 12:46 | P.PN ---
Subjective Progress Note Date: 04/26/24 84-year-old female multiple comorbidities presents to the emergency department with dyspnea upon waking. Patient has multiple comorbidities. States that she feels short of breath. She is a poor historian. She denies any pain. Denies any fever, chills or night sweats. She does report a cough. Patient arrives from home. Patient is sleepy and not able to provide much history; family is not available at bedside Blood work reveals WBC of 9.2, hemoglobin of 11, platelet count of 312, sodium 137, potassium 6.7, BUNs/creatinine of 61/2.46, magnesium elevated at 2.7, BNP of 7660, lactic acid of 1.8, troponin less than 0.012, influenza, RSV and COVID- 19 PCR is negative. UA is positive for leukocyte esterase, WBCs and bacteria EKG strangely shows no P waves and is bradycardic. Laboratory evaluation obtained. CBC and coag panel is negative. Metabolic panel shows potassium 6.7 that elevated renal function. Urinalysis shows greater than 182 white blood cells. Viral testing negative. Chest x-ray shows heart failure. Patient well- appearing from respiratory standpoint. Patient given hyperkalemia cocktail. 04/22. Patient seen and examined. Blood work done this morning showed WBC 8.3, hemoglobin 9.6, sodium 135, potassium 5.6, BUN 65, creatinine 2.51. Denies any shortness of breath. 04/23. Patient seen and examined. Blood work done this morning showed WBC 7.3, hemoglobin 9.4, platelet count 232, sodium 137, potassium 5.1, BUN 57, creatinine 2.10. 2D echo done showed LVH with hyperdynamic systolic function with systolic function of 65%, moderate pulmonary hypertension. States she feels much better. 04/24. Patient seen and examined. Complaining of cough. Denies any shortness of breath at rest. 04/25. Patient seen and examined. Patient overnight developed reaction to aztreonam. 04/26. Patient seen and examined. CT sacrum done showed superficial decubitus ulcer right paramedian posterior tissues overlying the coccyx, no evidence of any abscess or osteomyelitis. Showed 2 cm long needlelike foreign bodies in the rectum, could be related to previous surgery. Patient sitting upright in the bed REVIEW OF SYSTEMS: CONSTITUTIONAL: No fever, no malaise,. CARDIOVASCULAR: No chest pain, no palpitations, no syncope. PULMONARY: As mentioned above GASTROINTESTINAL: No diarrhea, no nausea, no vomiting, no abdominal pain. NEUROLOGICAL: No headaches, no weakness, PHYSICAL EXAMINATION: GENERAL: The patient is alert and oriented x3, not in any acute distress. Well developed, well nourished. HEENT: Pupils are round and equally reacting to light. EOMI. No scleral icterus. No conjunctival pallor. Normocephalic, atraumatic. No pharyngeal erythema. No thyromegaly. CARDIOVASCULAR: S1 and S2 present. No murmurs, rubs, or gallops. PULMONARY: Chest is clear to auscultation, no wheezing or crackles. ABDOMEN: Soft, nontender, nondistended, normoactive bowel sounds. No palpable organomegaly. MUSCULOSKELETAL: No joint swelling or deformity. EXTREMITIES: Chronic lower extremity venous stasis changes and scaly pigmentation NEUROLOGICAL: Gross neurological examination did not reveal any focal deficits. SKIN: Right gluteal pressure ulcer Assessment and plan Acute on chronic diastolic CHF Stage III right gluteal pressure ulcer Hyperkalemia Acute kidney injury Left pleural effusion UTI Hypertension Diabetes mellitus History of hyperlipidemia History of bowel resection and ostomy History of left femur fracture, currently bedridden since October, Chronic bilateral lower extremity swelling and wounds History of DVT, anticoagulated on Eliquis Monitor vital signs Monitor CBC Monitor CMP Continue telemetry monitoring Avoid nephrotoxic agents Low potassium diet Strict I's and O's, daily weights Continue Eliquis Continue meropenem Amlodipine and hydralazine on hold secondary to soft blood pressure Continue wound care CT sacrum done showed superficial decubitus ulcer right paramedian posterior tissues overlying the coccyx, no evidence of any abscess or osteomyelitis. Showed 2 cm long needlelike foreign bodies in the rectum, could be related to previous surgery. Nephrology following Cardiology following ID following Surgery consulted, reviewed CT sacrum, recommended no surgical intervention Labs and medication were reviewed.. Continue same treatment. Continue with symptomatic treatment. Resume home medication. Monitor labs and vitals. DVT and GI prophylaxis. Further recommendations as per clinical course of the patient Dictation was produced using [employer] dictation software. please excuse any grammatical, word or spelling errors. Objective - Vital Signs Vital signs: Vital Signs Temp 97.5 F L 04/26/24 09:12 Pulse 70 04/26/24 09:12 Resp 20 04/26/24 09:12 BP 118/51 04/26/24 09:12 Pulse Ox 100 04/26/24 09:12 FiO2 Intake & Output 04/25/24 04/26/24 04/26/24 18:59 06:59 18:59 Intake Total 500 540 128 Output Total 1000 400 700 Balance -500 140 -572 Weight 88.5 kg Intake: IV 10 Invasive Line 3 10 Oral 500 540 118 Output: Urine 500 400 700 Stool 500 Other: Voiding Method Indwelling Catheter Indwelling Catheter # Voids 0 # Bowel Movements 0 - Labs CBC & Chem 7: 04/26/24 07:22 04/26/24 07:22 Labs: Abnormal Lab Results - Last 24 Hours (Table) 04/25/24 04/25/24 04/25/24 Range/Units 11:58 16:47 17:44 Hgb (11.4-16.0) gm/dL MCHC (31.0-37.0) g/dL RDW (11.5-15.5) % BUN (7-17) mg/dL Creatinine (0.52-1.04) mg/dL POC Glucose (mg/dL) 209 H 202 H (70-110) mg/dL Albumin (3.5-5.0) g/dL Urine Protein Trace H (Negative) Urine Nitrite Positive H (Negative) Ur Leukocyte Esterase Moderate H (Negative) Urine WBC 28 H (0-5) /hpf Urine WBC Clumps Rare H (None) /hpf Urine Bacteria Rare H (None) /hpf Urine Mucus Rare H (None) /hpf Urine Yeast (Budding) Few H (None) /hpf 04/25/24 04/26/24 04/26/24 Range/Units 20:19 07:22 07:22 Hgb 10.2 L (11.4-16.0) gm/dL MCHC 28.9 L (31.0-37.0) g/dL RDW 18.5 H (11.5-15.5) % BUN 69 H (7-17) mg/dL Creatinine 1.61 H (0.52-1.04) mg/dL POC Glucose (mg/dL) 182 H (70-110) mg/dL Albumin 3.3 L (3.5-5.0) g/dL Urine Protein (Negative) Urine Nitrite (Negative) Ur Leukocyte Esterase (Negative) Urine WBC (0-5) /hpf Urine WBC Clumps (None) /hpf Urine Bacteria (None) /hpf Urine Mucus (None) /hpf Urine Yeast (Budding) (None) /hpf Microbiology - Last 24 Hours (Table) 04/23/24 11:15 Gram Stain - Preliminary Buttock Wound Culture - Preliminary Pseudomonas aeruginosa Gram Neg Bacilli
--- NOTE | 2024-04-26 12:51 | P.PN ---
Subjective Progress Note Date: 04/26/24 Principal diagnosis: Reason for follow-up is catheter assisted UTI Patient is a 84-year-old female with a past medical history significant for diabetes mellitus hypertension hyperlipidemia renal disorder, bilateral lower extremity ulcers as well as urinary retention requiring chronic indwelling Craven catheter presented to hospital with increasing shortness of breath apparently was getting back from an outpatient setting for UTI did have positive UA suprapubic pain and discomfort concerning for cystitis. On today's evaluation that is 04/26/2024, the patient continues to be afebrile, the patient is on 2 L nasal cannula oxygen and breathing comfortably, the Pt den ies having any chest pain or cough, the patient denies having any abdominal pain no vomiting or any diarrhea has been reported by the nursing staff. Patient did have white count of 6.1, creatinine is 1.61 sacral culture growing presumptive MRSA Pseudomonas Objective - Vital Signs Vital signs: Vital Signs Temp 97.5 F L 04/26/24 09:12 Pulse 70 04/26/24 09:12 Resp 20 04/26/24 09:12 BP 118/51 04/26/24 09:12 Pulse Ox 100 04/26/24 09:12 FiO2 Intake & Output 04/25/24 04/26/24 04/26/24 18:59 06:59 18:59 Intake Total 500 540 128 Output Total 1000 400 700 Balance -500 140 -572 Weight 88.5 kg Intake: IV 10 Invasive Line 3 10 Oral 500 540 118 Output: Urine 500 400 700 Stool 500 Other: Voiding Method Indwelling Catheter Indwelling Catheter Indwelling Catheter # Voids 0 # Bowel Movements 0 - Exam GENERAL DESCRIPTION: An elderly female lying in bed in no distress RESPIRATORY SYSTEM: Unlabored breathing , decreased breath sounds at bases HEART: S1 S2 regular rate and rhythm , ABDOMEN: Soft , no tenderness, EXTREMITIES: Bilateral heel wounds currently dressed - Labs CBC & Chem 7: 04/26/24 07:22 04/26/24 07:22 Labs: Abnormal Lab Results - Last 24 Hours (Table) 04/25/24 04/25/24 04/25/24 Range/Units 11:58 16:47 17:44 Hgb (11.4-16.0) gm/dL MCHC (31.0-37.0) g/dL RDW (11.5-15.5) % BUN (7-17) mg/dL Creatinine (0.52-1.04) mg/dL POC Glucose (mg/dL) 209 H 202 H (70-110) mg/dL C-Reactive Protein (<1.0) mg/dL Albumin (3.5-5.0) g/dL Urine Protein Trace H (Negative) Urine Nitrite Positive H (Negative) Ur Leukocyte Esterase Moderate H (Negative) Urine WBC 28 H (0-5) /hpf Urine WBC Clumps Rare H (None) /hpf Urine Bacteria Rare H (None) /hpf Urine Mucus Rare H (None) /hpf Urine Yeast (Budding) Few H (None) /hpf 04/25/24 04/26/24 04/26/24 Range/Units 20:19 07:22 07:22 Hgb 10.2 L (11.4-16.0) gm/dL MCHC 28.9 L (31.0-37.0) g/dL RDW 18.5 H (11.5-15.5) % BUN 69 H (7-17) mg/dL Creatinine 1.61 H (0.52-1.04) mg/dL POC Glucose (mg/dL) 182 H (70-110) mg/dL C-Reactive Protein 4.4 H (<1.0) mg/dL Albumin 3.3 L (3.5-5.0) g/dL Urine Protein (Negative) Urine Nitrite (Negative) Ur Leukocyte Esterase (Negative) Urine WBC (0-5) /hpf Urine WBC Clumps (None) /hpf Urine Bacteria (None) /hpf Urine Mucus (None) /hpf Urine Yeast (Budding) (None) /hpf Microbiology - Last 24 Hours (Table) 04/23/24 11:15 Gram Stain - Preliminary Buttock Wound Culture - Preliminary Pseudomonas aeruginosa Gram Neg Bacilli Assessment and Plan (1) Catheter-associated urinary tract infection Current Visit: Yes Status: Acute Code(s): T83.511A - I/I REACT D/T INDWELLING URETHRAL CATHETER, INIT; N39.0 - URINARY TRACT INFECTION, SITE NOT SPECIFIED SNOMED Code(s): 746526666 (2) Allergy to multiple antibiotics Current Visit: No Status: Acute Code(s): Z88.1 - ALLERGY STATUS TO OTHER ANTIBIOTIC AGENTS SNOMED Code(s): 400523269 (3) Stage III pressure ulcer of sacral region Current Visit: Yes Status: Acute Code(s): L89.153 - PRESSURE ULCER OF SACRAL REGION, STAGE 3 SNOMED Code(s): 25262395942668 Plan: 1patient presented to hospital with shortness of breath and this patient noticed to have worsening of her kidney function elevated potassium could be related to Bactrim DS the patient was taking outpatient setting for the UTI, patient did have positive UA suprapubic discomfort a complaint of catheter associated tract infection not entirely excluded. 2patient with multiple antibiotic ALLERGIES that would limit the number of antibiotic safe to use 3patient urine culture has been finalized with the Pseudomonas aeruginosa that is sensitive to cefepime but resistant to aztreonam which has been discontinued meropenem has been added and will continue 4patient also have a stage III sacral ulcer with a culture growing Pseudomonas aeruginosa and gram-negative with ID sensitivities pending as well as MRSA CT of the sacrum did not show any features of osteomyelitis, will treat as a wound infection with a 2-week course of antibiotic PICC line has been ordered we will add daptomycin to cover for the MRSA as she is a high risk of nephrotoxicity from vancomycin Dictation was produced using [employer] dictation software. please excuse any gra mmatical, word or spelling errors. Time with Patient: Less than 30
--- NOTE | 2024-04-26 14:00 | P.PN ---
Subjective Progress Note Date: 04/26/24 Principal diagnosis: Shortness of breath. Patient is an 84-year-old female with past medical history significant for multiple medical comorbidities including hypertension, diabetes mellitus, chronic kidney disease, colon cancer with previous bowel resection and ostomy, femur fracture leaving her bedridden, chronic bilateral lower extremity wounds, DVT anticoagulated on Eliquis. Also, recently treated by her PCP, on an outpatient basis for UTI with Bactrim. Patient is currently in the emergency department room 9, she states that over the last 2 to 3 months she has been pr ogressively more short of breath. She may have history of CHF. States that her lower extremities are chronically swollen. She does take Tosemide at home. Denies missing doses. Chest x-ray showing stable cardiac silhouette, pulmonary vascular congestion, and small to moderate left-sided pleural effusion with adjacent atelectasis and/or consolidation. Patient denies any infectious symptoms. She does have an occasional nonproductive cough. No fevers, chills, sputum production, chest pain. CBC: WBC count 9, hemoglobin 11, hematocrit 38.5, platelets 312. CMP: Sodium 137, potassium 6.9, chloride 98, serum bicarb 25, BUN 61, creatinine 2.46, glucose 138. Lactic 1.8. LFTs unremarkable. Troponin less than 0.012. NT proBNP 7660. Ultrasound of kidneys/renal/bladder showing bilateral chronic renal disease. No hydronephrosis. Overall limited exam. Urinalysis showing few bacteria and large leukocyte esterase. She has a chronic indwelling urinary catheter. Reportedly, last changed Monday. Kidney function is worse than baseline. Reportedly undergoing current treatment for UTI outpatient with Bactrim. Was started on Rocephin in the emergency department. Hyperkalemia has been treated with the hyperkalemia cocktail. Also, receiving doses of Lokelma. Most recent potassium down to 5.8. EKG: Appears junctional rhythm with a rate of 56 bpm. No acute ischemic changes. No hyperacute T waves or QRS widening. QT/QTc 398/391. Patient is currently resting comfortably in the stretcher. She is on 2 L nasal cannula. SpO2 is reading 100%. She does not ambulate and has been bedbound since October. Does not appear dyspneic at rest. Normal saline infusing at 75 mL/h. Hemodynamics appear stable. Progress note dated April 23, 2024. 84-year-old female admitted with a diagnosis of congestive heart failure, urinary tract infection. She is seen today in room 366. He is currently on 2 L of oxygen by nasal cannula. She is not receiving any IV fluids. She continues on IV Rocephin. Current laboratory data includes a white count 7.3, hemoglobin 9.4, hematocrit 31.4, and a normal platelet count. Sodium 137, potassium 5.1, chlorides 100, CO2 28, BUN 57, creatinine 2.10. Glucose is 252. Calcium is 8. Albumin is 3.0. Urine is revealing evidence of gram-negative bacilli. It is yet to be identified. Progress note dated April 24, 2024. 84-year-old female who was admitted with a diagnosis of congestive heart failure, urinary tract infection, and lower extremity wounds. The patient's urine tested positive for Pseudomonas. She currently is on Rocephin. She is being followed by infectious diseases. White count is 5.9, hemoglobin 9.5, hematocrit 33.4, platelet count 240,000. Sodium 138, potassium 4.9, chlorides 103, CO2 31, BUN 54, and creatinine 1.93. Calcium is 8. Albumin is 2.9. Progress note dated April 25, 2024. 84-year-old female admitted with a diagnosis of CHF. The patient is seen today in room 366. She is not receiving any IV fluids. She continues on nasal cannula 2 L. She appears in no acute distress. Current labs include a sodium 137, potassium 5.3, chlorides 101, CO2 33, BUN 64, and creatinine 1.75. Glucose is 96. Calcium is 8.1. Urine culture was positive for Pseudomonas aeruginosa. Wound culture on the buttock was positive for gram-negative bacilli and Pseudomonas. The patient is currently not on an antibiotic. ID should be consulted. Progress note dated April 26, 2024. 84-year-old female admitted with a diagnosis of infection, and congestive heart failure, is seen again in room 366. She is not receiving any IV fluids. She continues on nasal O2 at 2 L. The patient is resting comfortably in bed, without complaint. Current labs include a white count of 6.1, hemoglobin 10.2, hematocrit 35.2, and a platelet count of 223,000. Sodium 137, potassium 5.1, chlorides 104, CO2 28, BUN 69, and creatinine 1.61. Glucose is 117. Albumin is 3.3. Urine cultures are positive for Pseudomonas aeruginosa. Wound cultures of the buttock, were positive for presumptive MRSA, Proteus mirabilis, and Pseudomonas aeruginosa. The patient is currently on daptomycin and meropenem. Objective - Vital Signs Vital signs: Vital Signs Temp 96.7 F L 04/26/24 12:09 Pulse 67 04/26/24 12:09 Resp 20 04/26/24 12:09 BP 121/50 04/26/24 12:09 Pulse Ox 99 04/26/24 12:09 FiO2 Intake & Output 04/25/24 04/26/24 04/26/24 18:59 06:59 18:59 Intake Total 500 540 188 Output Total 1000 400 700 Balance -500 140 -512 Weight 88.5 kg 88.5 kg Intake: IV 10 Invasive Line 3 10 Oral 500 540 178 Output: Urine 500 400 700 Stool 500 Other: Voiding Method Indwelling Catheter Indwelling Catheter Indwelling Catheter # Voids 0 # Bowel Movements 0 - Exam No acute distress, oriented 3. Currently on 2 L nasal cannula. HEENT examination is grossly unremarkable. Mucous membranes are moist. No oral lesions. Neck supple. Full range of motion. No adenopathy thyromegaly or neck vein distention. Cardiovascular examination reveals regular rhythm rate. S1-S2 normal. No S3 or S4. No discernible murmur noted. Heart sounds are distant. Lungs reveal diminished breath sounds. Few crackles. No rhonchi. No wheezes. Abdomen soft bowel sounds are heard. No masses or tenderness. Colostomy noted. Extremities are wrapped. Skin is without rash or lesion. Neurologic examination is brief but nonfocal. - Labs CBC & Chem 7: 04/26/24 07:22 04/26/24 07:22 Labs: Abnormal Lab Results - Last 24 Hours (Table) 04/25/24 04/25/24 04/25/24 Range/Units 16:47 17:44 20:19 Hgb (11.4-16.0) gm/dL MCHC (31.0-37.0) g/dL RDW (11.5-15.5) % BUN (7-17) mg/dL Creatinine (0.52-1.04) mg/dL POC Glucose (mg/dL) 202 H 182 H (70-110) mg/dL C-Reactive Protein (<1.0) mg/dL Albumin (3.5-5.0) g/dL Urine Protein Trace H (Negative) Urine Nitrite Positive H (Negative) Ur Leukocyte Esterase Moderate H (Negative) Urine WBC 28 H (0-5) /hpf Urine WBC Clumps Rare H (None) /hpf Urine Bacteria Rare H (None) /hpf Urine Mucus Rare H (None) /hpf Urine Yeast (Budding) Few H (None) /hpf 04/26/24 04/26/24 04/26/24 Range/Units 07:22 07:22 12:04 Hgb 10.2 L (11.4-16.0) gm/dL MCHC 28.9 L (31.0-37.0) g/dL RDW 18.5 H (11.5-15.5) % BUN 69 H (7-17) mg/dL Creatinine 1.61 H (0.52-1.04) mg/dL POC Glucose (mg/dL) 117 H (70-110) mg/dL C-Reactive Protein 4.4 H (<1.0) mg/dL Albumin 3.3 L (3.5-5.0) g/dL Urine Protein (Negative) Urine Nitrite (Negative) Ur Leukocyte Esterase (Negative) Urine WBC (0-5) /hpf Urine WBC Clumps (None) /hpf Urine Bacteria (None) /hpf Urine Mucus (None) /hpf Urine Yeast (Budding) (None) /hpf Microbiology - Last 24 Hours (Table) 04/23/24 11:15 Gram Stain - Preliminary Buttock Wound Culture - Preliminary Pseudomonas aeruginosa Proteus mirabilis Presumptive MRSA Assessment and Plan Assessment: Suspect acute exacerbation of diastolic CHF. Small to moderate left-sided pleural effusion. Acute dyspnea, secondary to above. Acute on chronic kidney injury. Urinary tract infection secondary to Pseudomonas aeruginosa. Buttock wound culture positive for Pseudomonas aeruginosa, Proteus mirabilis, and presumptive MRSA. Severe hyperkalemia, resolved. Chronic indwelling urinary catheter. Diabetes mellitus, type II. History of hypertension. History of hyperlipidemia. History of bowel resection and ostomy. History of left femur fracture, currently bedridden since October,. Chronic bilateral lower extremity swelling and wounds. History of DVT. Plan: Plan dated April 23, 2024. The patient is seen today in room 366. The patient is on 2 L of oxygen. The urinary sampling, showing gram-negative bacilli. It is yet to be identified. She continues on Rocephin. She is not receiving any IV fluids. The lower extremities are wrapped. We will continue to follow. CODE STATUS should be addressed. She remains a full code at this time. Plan dated April 24, 2024. The patient is seen in room 366. She remains on O2 at 2 L. No IV fluids. She continues on Rocephin. She is being followed by infectious diseases. Her urine did test positive for Pseudomonas. Additional recommendations and suggestions are forthcoming. She remains a full code. Should be addressed. Labs, x-rays, and all medications have been reviewed. Plan dated April 25, 2024. Urinary cultures were positive for Pseudomonas. Buttock cultures, were also p ositive for Pseudomonas. Infectious disease doctor is following, and should make decisions about antibiotics. From the pulmonary standpoint, she is relatively stable. She was admitted with an exacerbation of her diastolic CHF. She continues on 2 L. She appears not to have any respiratory distress. Labs, x-rays, and medications are reviewed. Plan dated April 26, 2024. The patient currently is on meropenem and daptomycin. Infectious diseases following the patient. The urine culture was positive for Pseudomonas aeruginosa. The buttock wound was positive for Pseudomonas aeruginosa, Proteus mirabilis, and presumptive methicillin-resistant Staph aureus. Labs, x-rays, and all medications are reviewed. We will continue to follow. Prognosis is guarded. CODE STATUS should be addressed. Time with Patient: Less than 30
[2024-04-26 15:18] LABS: Erythrocyte Sedimentation Rate 97 mm/Hr (0-30)
[2024-04-26 17:17] LABS: Glucose,Whole Blood 147 mg/dL (70-110)
[2024-04-26 19:57] LABS: Glucose,Whole Blood 212 mg/dL (70-110)
[2024-04-27 06:17] LABS: Glucose,Whole Blood 91 mg/dL (70-110)
--- NOTE | 2024-04-27 09:34 | P.PN ---
Progress Note - Text Progress Note Date: 04/27/24 Patient Seen and Examined. NAEO. Resting Comfortable VSS General Impression: Alert and oriented x3, not in acute distress, sleeping resting comfortably, air boots to the bilateral feet, indwelling Craven catheter HEENT: Normocephalic atraumatic, extra-ocular movements intact, pupils equal and reactive to light bilaterally, mucous membranes moist. Cardiovascular: Heart regular rate and rhythm Chest: Able to complete full sentences, no retractions, no tachypnea, clear to auscultation bilaterally Abdomen: abdomen soft, non-tender, non-distended, no organomegaly Musculoskeletal: Pulses present and equal in all extremities, no peripheral edema Motor: no focal deficits noted Neurological: CN II-XII grossly intact, no focal motor or sensory deficits noted Skin: Intact with no visualized rashes 84 year old female with sacral decubitus ulcer and foreign body in rectum -Decubitus ulcer is clean and does not require any surgical intervention -Foreign body in rectum likely related to prior surgical intervention. Need need for surgical intervention to remove as it is not causing issues. Patient and son agreeable with plan [facility] [phone]
--- NOTE | 2024-04-27 10:29 | P.PN ---
Subjective Progress Note Date: 04/27/24 Principal diagnosis: Shortness of breath. Patient is an 84-year-old female with past medical history significant for multiple medical comorbidities including hypertension, diabetes mellitus, chronic kidney disease, colon cancer with previous bowel resection and ostomy, femur fracture leaving her bedridden, chronic bilateral lower extremity wounds, DVT anticoagulated on Eliquis. Also, recently treated by her PCP, on an outpatient basis for UTI with Bactrim. Patient is currently in the emergency department room 9, she states that over the last 2 to 3 months she has been pr ogressively more short of breath. She may have history of CHF. States that her lower extremities are chronically swollen. She does take Tosemide at home. Denies missing doses. Chest x-ray showing stable cardiac silhouette, pulmonary vascular congestion, and small to moderate left-sided pleural effusion with adjacent atelectasis and/or consolidation. Patient denies any infectious symptoms. She does have an occasional nonproductive cough. No fevers, chills, sputum production, chest pain. CBC: WBC count 9, hemoglobin 11, hematocrit 38.5, platelets 312. CMP: Sodium 137, potassium 6.9, chloride 98, serum bicarb 25, BUN 61, creatinine 2.46, glucose 138. Lactic 1.8. LFTs unremarkable. Troponin less than 0.012. NT proBNP 7660. Ultrasound of kidneys/renal/bladder showing bilateral chronic renal disease. No hydronephrosis. Overall limited exam. Urinalysis showing few bacteria and large leukocyte esterase. She has a chronic indwelling urinary catheter. Reportedly, last changed Monday. Kidney function is worse than baseline. Reportedly undergoing current treatment for UTI outpatient with Bactrim. Was started on Rocephin in the emergency department. Hyperkalemia has been treated with the hyperkalemia cocktail. Also, receiving doses of Lokelma. Most recent potassium down to 5.8. EKG: Appears junctional rhythm with a rate of 56 bpm. No acute ischemic changes. No hyperacute T waves or QRS widening. QT/QTc 398/391. Patient is currently resting comfortably in the stretcher. She is on 2 L nasal cannula. SpO2 is reading 100%. She does not ambulate and has been bedbound since October. Does not appear dyspneic at rest. Normal saline infusing at 75 mL/h. Hemodynamics appear stable. Progress note dated April 23, 2024. 84-year-old female admitted with a diagnosis of congestive heart failure, urinary tract infection. She is seen today in room 366. He is currently on 2 L of oxygen by nasal cannula. She is not receiving any IV fluids. She continues on IV Rocephin. Current laboratory data includes a white count 7.3, hemoglobin 9.4, hematocrit 31.4, and a normal platelet count. Sodium 137, potassium 5.1, chlorides 100, CO2 28, BUN 57, creatinine 2.10. Glucose is 252. Calcium is 8. Albumin is 3.0. Urine is revealing evidence of gram-negative bacilli. It is yet to be identified. Progress note dated April 24, 2024. 84-year-old female who was admitted with a diagnosis of congestive heart failure, urinary tract infection, and lower extremity wounds. The patient's urine tested positive for Pseudomonas. She currently is on Rocephin. She is being followed by infectious diseases. White count is 5.9, hemoglobin 9.5, hematocrit 33.4, platelet count 240,000. Sodium 138, potassium 4.9, chlorides 103, CO2 31, BUN 54, and creatinine 1.93. Calcium is 8. Albumin is 2.9. Progress note dated April 25, 2024. 84-year-old female admitted with a diagnosis of CHF. The patient is seen today in room 366. She is not receiving any IV fluids. She continues on nasal cannula 2 L. She appears in no acute distress. Current labs include a sodium 137, potassium 5.3, chlorides 101, CO2 33, BUN 64, and creatinine 1.75. Glucose is 96. Calcium is 8.1. Urine culture was positive for Pseudomonas aeruginosa. Wound culture on the buttock was positive for gram-negative bacilli and Pseudomonas. The patient is currently not on an antibiotic. ID should be consulted. Progress note dated April 26, 2024. 84-year-old female admitted with a diagnosis of infection, and congestive heart failure, is seen again in room 366. She is not receiving any IV fluids. She continues on nasal O2 at 2 L. The patient is resting comfortably in bed, without complaint. Current labs include a white count of 6.1, hemoglobin 10.2, hematocrit 35.2, and a platelet count of 223,000. Sodium 137, potassium 5.1, chlorides 104, CO2 28, BUN 69, and creatinine 1.61. Glucose is 117. Albumin is 3.3. Urine cultures are positive for Pseudomonas aeruginosa. Wound cultures of the buttock, were positive for presumptive MRSA, Proteus mirabilis, and Pseudomonas aeruginosa. The patient is currently on daptomycin and meropenem. Progress note dated April 27, 2024. 84-year-old female admitted with a diagnosis of CHF. She seen again in room 366. She continues on oxygen by nasal cannula 2 L. She is currently on daptomycin, and meropenem. Urine cultures were positive for Pseudomonas aeruginosa. Cultures of the buttock, were positive for presumptive MRSA, Proteus mirabilis, Pseudomonas aeruginosa. Clinically she is doing about the same. She is not receiving any IV fluids. Glucose 91 today. Objective - Vital Signs Vital signs: Vital Signs Temp 97.4 F L 04/27/24 08:03 Pulse 74 04/27/24 08:03 Resp 18 04/27/24 08:03 BP 111/44 04/27/24 08:03 Pulse Ox 93 L 04/27/24 08:03 FiO2 Intake & Output 04/26/24 04/27/24 04/27/24 18:59 06:59 18:59 Intake Total 420 20 118 Output Total 1050 200 Balance -630 -180 118 Weight 88.5 kg 88.5 kg Intake: IV 20 20 Invasive Line 3 10 Invasive Line 5 10 20 Oral 400 118 Output: Urine 1050 Stool 200 Other: Voiding Method Indwelling Catheter Indwelling Catheter Indwelling Catheter # Bowel Movements 1 - Exam No acute distress, oriented 3. Currently on 2 L nasal cannula. HEENT examination is grossly unremarkable. Mucous membranes are moist. No oral lesions. Neck supple. Full range of motion. No adenopathy thyromegaly or neck vein distention. Cardiovascular examination reveals regular rhythm rate. S1-S2 normal. No S3 or S4. No discernible murmur noted. Heart sounds are distant. Lungs reveal diminished breath sounds. Few crackles. No rhonchi. No wheezes. Abdomen soft bowel sounds are heard. No masses or tenderness. Colostomy noted. Extremities are wrapped. Skin is without rash or lesion. Neurologic examination is brief but nonfocal. - Labs CBC & Chem 7: 04/26/24 07:22 04/26/24 07:22 Labs: Abnormal Lab Results - Last 24 Hours (Table) 04/26/24 04/26/24 04/26/24 Range/Units 07:22 07:22 12:04 ESR 97 H (0-30) mm/Hr POC Glucose (mg/dL) 117 H (70-110) mg/dL C-Reactive Protein 4.4 H (<1.0) mg/dL 04/26/24 04/26/24 Range/Units 17:16 19:56 ESR (0-30) mm/Hr POC Glucose (mg/dL) 147 H 212 H (70-110) mg/dL C-Reactive Protein (<1.0) mg/dL Microbiology - Last 24 Hours (Table) 04/21/24 18:30 Blood Culture - Final Blood 04/25/24 17:44 Urine Culture - Preliminary Urine,Voided Gram Neg Bacilli 04/23/24 11:15 Gram Stain - Preliminary Buttock Wound Culture - Preliminary Pseudomonas aeruginosa Proteus mirabilis Presumptive MRSA Assessment and Plan Assessment: Suspect acute exacerbation of diastolic CHF. Small to moderate left-sided pleural effusion. Acute dyspnea, secondary to above. Acute on chronic kidney injury. Urinary tract infection secondary to Pseudomonas aeruginosa. Buttock wound culture positive for Pseudomonas aeruginosa, Proteus mirabilis, and presumptive MRSA. Severe hyperkalemia, resolved. Chronic indwelling urinary catheter. Diabetes mellitus, type II. History of hypertension. History of hyperlipidemia. History of bowel resection and ostomy. History of left femur fracture, currently bedridden since October,. Chronic bilateral lower extremity swelling and wounds. History of DVT. Plan: Plan dated April 23, 2024. The patient is seen today in room 366. The patient is on 2 L of oxygen. The urinary sampling, showing gram-negative bacilli. It is yet to be identified. She continues on Rocephin. She is not receiving any IV fluids. The lower extremities are wrapped. We will continue to follow. CODE STATUS should be addressed. She remains a full code at this time. Plan dated April 24, 2024. The patient is seen in room 366. She remains on O2 at 2 L. No IV fluids. She continues on Rocephin. She is being followed by infectious diseases. Her urine did test positive for Pseudomonas. Additional recommendations and suggestions are forthcoming. She remains a full code. Should be addressed. Labs, x-rays, and all medications have been reviewed. Plan dated April 25, 2024. Urinary cultures were positive for Pseudomonas. Buttock cultures, were also positive for Pseudomonas. Infectious disease doctor is following, and should make decisions about antibiotics. From the pulmonary standpoint, she is relat ively stable. She was admitted with an exacerbation of her diastolic CHF. She continues on 2 L. She appears not to have any respiratory distress. Labs, x- rays, and medications are reviewed. Plan dated April 26, 2024. The patient currently is on meropenem and daptomycin. Infectious diseases following the patient. The urine culture was positive for Pseudomonas aeruginosa. The buttock wound was positive for Pseudomonas aeruginosa, Proteus mirabilis, and presumptive methicillin-resistant Staph aureus. Labs, x-rays, and all medications are reviewed. We will continue to follow. Prognosis is guarded. CODE STATUS should be addressed. Plan dated April 27, 2024. The patient remained stable. The patient continues on daptomycin and meropenem. Antibiotics are being guided by the infectious disease specialist. She continues on 2 L. No additional recommendations are made. No new labs today. We will continue to follow. Time with Patient: Less than 30
[2024-04-27 11:39] LABS: Glucose,Whole Blood 134 mg/dL (70-110)
--- NOTE | 2024-04-27 13:38 | P.PN ---
Subjective Progress Note Date: 04/27/24 84-year-old female multiple comorbidities presents to the emergency department with dyspnea upon waking. Patient has multiple comorbidities. States that she feels short of breath. She is a poor historian. She denies any pain. Denies any fever, chills or night sweats. She does report a cough. Patient arrives from home. Patient is sleepy and not able to provide much history; family is not available at bedside Blood work reveals WBC of 9.2, hemoglobin of 11, platelet count of 312, sodium 137, potassium 6.7, BUNs/creatinine of 61/2.46, magnesium elevated at 2.7, BNP of 7660, lactic acid of 1.8, troponin less than 0.012, influenza, RSV and COVID- 19 PCR is negative. UA is positive for leukocyte esterase, WBCs and bacteria EKG strangely shows no P waves and is bradycardic. Laboratory evaluation obtained. CBC and coag panel is negative. Metabolic panel shows potassium 6.7 that elevated renal function. Urinalysis shows greater than 182 white blood cells. Viral testing negative. Chest x-ray shows heart failure. Patient well- appearing from respiratory standpoint. Patient given hyperkalemia cocktail. 04/22. Patient seen and examined. Blood work done this morning showed WBC 8.3, hemoglobin 9.6, sodium 135, potassium 5.6, BUN 65, creatinine 2.51. Denies any shortness of breath. 04/23. Patient seen and examined. Blood work done this morning showed WBC 7.3, hemoglobin 9.4, platelet count 232, sodium 137, potassium 5.1, BUN 57, creatinine 2.10. 2D echo done showed LVH with hyperdynamic systolic function with systolic function of 65%, moderate pulmonary hypertension. States she feels much better. 04/24. Patient seen and examined. Complaining of cough. Denies any shortness of breath at rest. 04/25. Patient seen and examined. Patient overnight developed reaction to aztreonam. 04/26. Patient seen and examined. CT sacrum done showed superficial decubitus ulcer right paramedian posterior tissues overlying the coccyx, no evidence of any abscess or osteomyelitis. Showed 2 cm long needlelike foreign bodies in the rectum, could be related to previous surgery. Patient sitting upright in the bed 04/27. Patient seen and examined no acute issues overnight. Vital signs stable. Currently on IV daptomycin and meropenem. ID planning IV antibiotics at dis charge. Patient pulled out her PICC line last night REVIEW OF SYSTEMS: CONSTITUTIONAL: No fever, no malaise,. CARDIOVASCULAR: No chest pain, no palpitations, no syncope. PULMONARY: As mentioned above GASTROINTESTINAL: No diarrhea, no nausea, no vomiting, no abdominal pain. NEUROLOGICAL: No headaches, no weakness, PHYSICAL EXAMINATION: GENERAL: The patient is alert and oriented x3, not in any acute distress. Well developed, well nourished. HEENT: Pupils are round and equally reacting to light. EOMI. No scleral icterus. No conjunctival pallor. Normocephalic, atraumatic. No pharyngeal erythema. No thyromegaly. CARDIOVASCULAR: S1 and S2 present. No murmurs, rubs, or gallops. PULMONARY: Chest is clear to auscultation, no wheezing or crackles. ABDOMEN: Soft, nontender, nondistended, normoactive bowel sounds. No palpable organomegaly. MUSCULOSKELETAL: No joint swelling or deformity. EXTREMITIES: Chronic lower extremity venous stasis changes and scaly pigmentation NEUROLOGICAL: Gross neurological examination did not reveal any focal deficits. SKIN: Right gluteal pressure ulcer Assessment and plan Acute on chronic diastolic CHF Stage III right gluteal pressure ulcer Hyperkalemia Acute kidney injury Left pleural effusion UTI Hypertension Diabetes mellitus History of hyperlipidemia History of bowel resection and ostomy History of left femur fracture, currently bedridden since October, Chronic bilateral lower extremity swelling and wounds History of DVT, anticoagulated on Eliquis Monitor vital signs Monitor CBC Monitor CMP Continue telemetry monitoring Avoid nephrotoxic agents Low potassium diet Strict I's and O's, daily weights Continue Eliquis Continue meropenem and daptomycin Amlodipine and hydralazine on hold secondary to soft blood pressure Continue wound care CT sacrum done showed superficial decubitus ulcer right paramedian posterior tissues overlying the coccyx, no evidence of any abscess or osteomyelitis. Showed 2 cm long needlelike foreign bodies in the rectum, could be related to previous surgery. Nephrology following Cardiology following ID following Surgery consulted, reviewed CT sacrum, recommended no surgical intervention Labs and medication were reviewed.. Continue same treatment. Continue with sym ptomatic treatment. Resume home medication. Monitor labs and vitals. DVT and GI prophylaxis. Further recommendations as per clinical course of the patient Dictation was produced using [employer] dictation software. please excuse any grammatical, word or spelling errors. Objective - Vital Signs Vital signs: Vital Signs Temp 97.4 F L 04/27/24 08:03 Pulse 74 04/27/24 08:03 Resp 18 04/27/24 08:03 BP 111/44 04/27/24 08:03 Pulse Ox 93 L 04/27/24 08:03 FiO2 Intake & Output 04/26/24 04/27/24 04/27/24 18:59 06:59 18:59 Intake Total 420 20 118 Output Total 1050 200 Balance -630 -180 118 Weight 88.5 kg 88.5 kg Intake: IV 20 20 Invasive Line 3 10 Invasive Line 5 10 20 Oral 400 118 Output: Urine 1050 Stool 200 Other: Voiding Method Indwelling Catheter Indwelling Catheter Indwelling Catheter # Bowel Movements 1 - Labs CBC & Chem 7: 04/26/24 07:22 04/26/24 07:22 Labs: Abnormal Lab Results - Last 24 Hours (Table) 04/26/24 04/26/24 04/26/24 Range/Units 07:22 12:04 17:16 ESR 97 H (0-30) mm/Hr POC Glucose (mg/dL) 117 H 147 H (70-110) mg/dL 04/26/24 Range/Units 19:56 ESR (0-30) mm/Hr POC Glucose (mg/dL) 212 H (70-110) mg/dL Microbiology - Last 24 Hours (Table) 04/21/24 18:30 Blood Culture - Final Blood 04/25/24 17:44 Urine Culture - Preliminary Urine,Voided Gram Neg Bacilli 04/23/24 11:15 Gram Stain - Preliminary Buttock Wound Culture - Preliminary Pseudomonas aeruginosa Proteus mirabilis Presumptive MRSA
--- NOTE | 2024-04-27 14:13 | P.PN ---
Subjective Progress Note Date: 04/27/24 Patient seen in follow-up for MAYRA. Cratinine is improving back to baseline level. Comfortable, no acute distress. Examination of the heart S1 and S2 Examination of the lungs bilateral breath sounds are heard Abdomen is soft nontender. Colostomy bag noted. Examination of lower extremities shows no significant edema, chronic skin changes Objective - Vital Signs Vital signs: Vital Signs Temp 97.4 F L 04/27/24 08:03 Pulse 74 04/27/24 08:03 Resp 18 04/27/24 08:03 BP 111/44 04/27/24 08:03 Pulse Ox 93 L 04/27/24 08:03 FiO2 Intake & Output 04/26/24 04/27/24 04/27/24 18:59 06:59 18:59 Intake Total 420 20 118 Output Total 1050 200 Balance -630 -180 118 Weight 88.5 kg 88.5 kg Intake: IV 20 20 Invasive Line 3 10 Invasive Line 5 10 20 Oral 400 118 Output: Urine 1050 Stool 200 Other: Voiding Method Indwelling Catheter Indwelling Catheter Indwelling Catheter # Bowel Movements 1 - Labs CBC & Chem 7: 04/26/24 07:22 04/26/24 07:22 Labs: Abnormal Lab Results - Last 24 Hours (Table) 04/26/24 04/26/24 04/26/24 Range/Units 07:22 12:04 17:16 ESR 97 H (0-30) mm/Hr POC Glucose (mg/dL) 117 H 147 H (70-110) mg/dL 04/26/24 Range/Units 19:56 ESR (0-30) mm/Hr POC Glucose (mg/dL) 212 H (70-110) mg/dL Microbiology - Last 24 Hours (Table) 04/21/24 18:30 Blood Culture - Final Blood 04/25/24 17:44 Urine Culture - Preliminary Urine,Voided Gram Neg Bacilli 04/23/24 11:15 Gram Stain - Preliminary Buttock Wound Culture - Preliminary Pseudomonas aeruginosa Proteus mirabilis Presumptive MRSA Assessment and Plan Assessment: 1. Hyperkalemia, 2/2 to MAYRA and use of bactrim, continues to trend down since admission, no met. acidosis (improved) 2. MAYRA, in the setting of CKD stage IIIb, ATN from low BP, volume depletion, hyaline casts noted on UA (improved). PVR negative. 3. Respiratory acidosis 4. UTI, Pseudomonas 5. Anemia rule out GI bleed and iron deficiency anemia Plan: Continue off of IV fluids Continue to hold amlodipine and hydralazineas BP is low. Maintain on low potassium diet Creatinine near baseline 1.3-1.6
--- NOTE | 2024-04-27 16:16 | P.PN ---
Subjective Progress Note Date: 04/27/24 Principal diagnosis: Reason for follow-up is catheter assisted UTI Patient is a 84-year-old female with a past medical history significant for diabetes mellitus hypertension hyperlipidemia renal disorder, bilateral lower extremity ulcers as well as urinary retention requiring chronic indwelling Craven catheter presented to hospital with increasing shortness of breath apparently was getting back from an outpatient setting for UTI did have positive UA suprapubic pain and discomfort concerning for cystitis. On today's evaluation that is 04/27/2024, Patient is afebrile patient is currently on 2 L current oxygen and denies having any shortness of breath, the patient denies any chest pain or cough, the patient denies any nausea vomiting did not have any abdominal pain and no diarrhea. No new lab has been repeated today Objective - Vital Signs Vital signs: Vital Signs Temp 97.3 F L 04/27/24 12:29 Pulse 65 04/27/24 12:29 Resp 16 04/27/24 12:29 BP 99/48 04/27/24 12:29 Pulse Ox 100 04/27/24 12:29 FiO2 Intake & Output 04/26/24 04/27/24 04/27/24 18:59 06:59 18:59 Intake Total 420 20 118 Output Total 1050 200 225 Balance -630 -180 -107 Weight 88.5 kg 88.5 kg Intake: IV 20 20 Invasive Line 3 10 Invasive Line 5 10 20 Oral 400 118 Output: Urine 1050 225 Stool 200 Other: Voiding Method Indwelling Catheter Indwelling Catheter Indwelling Catheter # Bowel Movements 1 - Exam GENERAL DESCRIPTION: An elderly female lying in bed in no distress RESPIRATORY SYSTEM: Unlabored breathing , decreased breath sounds at bases HEART: S1 S2 regular rate and rhythm , ABDOMEN: Soft , no tenderness, EXTREMITIES: Bilateral heel wounds currently dressed - Labs CBC & Chem 7: 04/26/24 07:22 04/26/24 07:22 Labs: Abnormal Lab Results - Last 24 Hours (Table) 04/26/24 04/26/24 04/27/24 Range/Units 17:16 19:56 11:32 POC Glucose (mg/dL) 147 H 212 H 134 H (70-110) mg/dL Microbiology - Last 24 Hours (Table) 04/23/24 11:15 Gram Stain - Final Buttock Wound Culture - Final Pseudomonas aeruginosa Proteus mirabilis Methicillin resist S. aureus 04/21/24 18:30 Blood Culture - Final Blood 04/25/24 17:44 Urine Culture - Preliminary Urine,Voided Gram Neg Bacilli Assessment and Plan (1) Catheter-associated urinary tract infection Current Visit: Yes Status: Acute Code(s): T83.511A - I/I REACT D/T INDWELLING URETHRAL CATHETER, INIT; N39.0 - URINARY TRACT INFECTION, SITE NOT SPECIFIED SNOMED Code(s): 454666955 (2) Allergy to multiple antibiotics Current Visit: No Status: Acute Code(s): Z88.1 - ALLERGY STATUS TO OTHER ANTIBIOTIC AGENTS SNOMED Code(s): 072180163 (3) Stage III pressure ulcer of sacral region Current Visit: Yes Status: Acute Code(s): L89.153 - PRESSURE ULCER OF SACRAL REGION, STAGE 3 SNOMED Code(s): 92372063376159 Plan: 1patient presented to hospital with shortness of breath and this patient noticed to have worsening of her kidney function elevated potassium could be related to Bactrim DS the patient was taking outpatient setting for the UTI, patient did have positive UA suprapubic discomfort a complaint of catheter associated tract infection not entirely excluded. 2patient with multiple antibiotic ALLERGIES that would limit the number of antibiotic safe to use 3patient urine culture has been finalized with the Pseudomonas aeruginosa that is sensitive to cefepime but resistant to aztreonam which has been discontinued meropenem has been added and will continue 4patient also have a stage III sacral ulcer with a culture growing Pseudomonas aeruginosa and gram-negative with ID sensitivities pending as well as MRSA CT of the sacrum did not show any features of osteomyelitis, will treat as a wound infection with a 2-week course of antibiotic, currently waiting for outpatient IV antibiotic arrangement and is covered with daptomycin and meropenem Dictation was produced using [employer] software. please excuse any grammatical, word or spelling errors.
[2024-04-27 17:13] LABS: Glucose,Whole Blood 133 mg/dL (70-110)
[2024-04-27 20:11] LABS: Glucose,Whole Blood 187 mg/dL (70-110)
--- NOTE | 2024-04-28 04:38 | P.PN ---
Progress Note - Text Progress Note Date: 04/28/24 Patient Seen and Examined. NAEO. Resting Comfortable VSS General Impression: Alert and oriented x3, not in acute distress, sleeping resting comfortably, air boots to the bilateral feet, indwelling Craven catheter HEENT: Normocephalic atraumatic, extra-ocular movements intact, pupils equal and reactive to light bilaterally, mucous membranes moist. Cardiovascular: Heart regular rate and rhythm Chest: Able to complete full sentences, no retractions, no tachypnea, clear to auscultation bilaterally Abdomen: abdomen soft, non-tender, non-distended, no organomegaly Musculoskeletal: Pulses present and equal in all extremities, no peripheral edema Motor: no focal deficits noted Neurological: CN II-XII grossly intact, no focal motor or sensory deficits noted Skin: Intact with no visualized rashes 84 year old female with sacral decubitus ulcer and foreign body in rectum -Decubitus ulcer is clean and does not require any surgical intervention -Foreign body in rectum likely related to prior surgical intervention. Need need for surgical intervention to remove as it is not causing issues. Patient and son agreeable with plan [facility] [phone]
[2024-04-28 06:10] LABS: Glucose,Whole Blood 103 mg/dL (70-110)
[2024-04-28 09:27] LABS: Anisocytosis Slight; Basophils % (A) 0 %; Eosinophils # (A) 0.6 k/uL (0-0.7); Eosinophils % (A) 12 %; HGB 9.4 gm/dL (11.4-16.0); Hypochromasia Marked; Lymphocytes # (A) 0.9 k/uL (1.0-4.8); Lymphocytes % (A) 17 %; MCH 26.7 pg (25.0-35.0); MCHC 29.2 g/dL (31.0-37.0); MCV 91.4 fL (80.0-100.0); Mean Platelet Volume 7.8; Monocytes # (A) 0.3 k/uL (0-1.0); Monocytes % (A) 6 %; Neutrophils # (A) 3.1 k/uL (1.3-7.7); Neutrophils % (A) 62 %; Platelet Count 193 k/uL (150-450); RDW 19.1 % (11.5-15.5)
[2024-04-28 09:33] LABS: ALT 8 U/L (4-34); AST 19 U/L (14-36); African American GFR (CKD) 44 (>60 ml/min/1.73 sqM); Albumin 2.7 g/dL (3.5-5.0); Alkaline Phosphatase 83 U/L (38-126); Anion Gap 4 mmol/L; Blood Urea Nitrogen 69 mg/dL (7-17); Calcium 8.1 mg/dL (8.4-10.2); Carbon Dioxide 27 mmol/L (22-30); Chloride 107 mmol/L (98-107); Glucose 106 mg/dL (74-99); Non-African American GFR(CKD) 38 (>60 ml/min/1.73 sqM); Potassium 4.9 mmol/L (3.5-5.1); Sodium 138 mmol/L (137-145); Total Bilirubin 0.3 mg/dL (0.2-1.3); Total Protein 5.5 g/dL (6.3-8.2)
--- NOTE | 2024-04-28 11:16 | P.PN ---
Subjective Progress Note Date: 04/28/24 Principal diagnosis: Shortness of breath. Patient is an 84-year-old female with past medical history significant for multiple medical comorbidities including hypertension, diabetes mellitus, chronic kidney disease, colon cancer with previous bowel resection and ostomy, femur fracture leaving her bedridden, chronic bilateral lower extremity wounds, DVT anticoagulated on Eliquis. Also, recently treated by her PCP, on an outpatient basis for UTI with Bactrim. Patient is currently in the emergency department room 9, she states that over the last 2 to 3 months she has been pr ogressively more short of breath. She may have history of CHF. States that her lower extremities are chronically swollen. She does take Tosemide at home. Denies missing doses. Chest x-ray showing stable cardiac silhouette, pulmonary vascular congestion, and small to moderate left-sided pleural effusion with adjacent atelectasis and/or consolidation. Patient denies any infectious symptoms. She does have an occasional nonproductive cough. No fevers, chills, sputum production, chest pain. CBC: WBC count 9, hemoglobin 11, hematocrit 38.5, platelets 312. CMP: Sodium 137, potassium 6.9, chloride 98, serum bicarb 25, BUN 61, creatinine 2.46, glucose 138. Lactic 1.8. LFTs unremarkable. Troponin less than 0.012. NT proBNP 7660. Ultrasound of kidneys/renal/bladder showing bilateral chronic renal disease. No hydronephrosis. Overall limited exam. Urinalysis showing few bacteria and large leukocyte esterase. She has a chronic indwelling urinary catheter. Reportedly, last changed Monday. Kidney function is worse than baseline. Reportedly undergoing current treatment for UTI outpatient with Bactrim. Was started on Rocephin in the emergency department. Hyperkalemia has been treated with the hyperkalemia cocktail. Also, receiving doses of Lokelma. Most recent potassium down to 5.8. EKG: Appears junctional rhythm with a rate of 56 bpm. No acute ischemic changes. No hyperacute T waves or QRS widening. QT/QTc 398/391. Patient is currently resting comfortably in the stretcher. She is on 2 L nasal cannula. SpO2 is reading 100%. She does not ambulate and has been bedbound since October. Does not appear dyspneic at rest. Normal saline infusing at 75 mL/h. Hemodynamics appear stable. Progress note dated April 23, 2024. 84-year-old female admitted with a diagnosis of congestive heart failure, urinary tract infection. She is seen today in room 366. He is currently on 2 L of oxygen by nasal cannula. She is not receiving any IV fluids. She continues on IV Rocephin. Current laboratory data includes a white count 7.3, hemoglobin 9.4, hematocrit 31.4, and a normal platelet count. Sodium 137, potassium 5.1, chlorides 100, CO2 28, BUN 57, creatinine 2.10. Glucose is 252. Calcium is 8. Albumin is 3.0. Urine is revealing evidence of gram-negative bacilli. It is yet to be identified. Progress note dated April 24, 2024. 84-year-old female who was admitted with a diagnosis of congestive heart failure, urinary tract infection, and lower extremity wounds. The patient's urine tested positive for Pseudomonas. She currently is on Rocephin. She is being followed by infectious diseases. White count is 5.9, hemoglobin 9.5, hematocrit 33.4, platelet count 240,000. Sodium 138, potassium 4.9, chlorides 103, CO2 31, BUN 54, and creatinine 1.93. Calcium is 8. Albumin is 2.9. Progress note dated April 25, 2024. 84-year-old female admitted with a diagnosis of CHF. The patient is seen today in room 366. She is not receiving any IV fluids. She continues on nasal cannula 2 L. She appears in no acute distress. Current labs include a sodium 137, potassium 5.3, chlorides 101, CO2 33, BUN 64, and creatinine 1.75. Glucose is 96. Calcium is 8.1. Urine culture was positive for Pseudomonas aeruginosa. Wound culture on the buttock was positive for gram-negative bacilli and Pseudomonas. The patient is currently not on an antibiotic. ID should be consulted. Progress note dated April 26, 2024. 84-year-old female admitted with a diagnosis of infection, and congestive heart failure, is seen again in room 366. She is not receiving any IV fluids. She continues on nasal O2 at 2 L. The patient is resting comfortably in bed, without complaint. Current labs include a white count of 6.1, hemoglobin 10.2, hematocrit 35.2, and a platelet count of 223,000. Sodium 137, potassium 5.1, chlorides 104, CO2 28, BUN 69, and creatinine 1.61. Glucose is 117. Albumin is 3.3. Urine cultures are positive for Pseudomonas aeruginosa. Wound cultures of the buttock, were positive for presumptive MRSA, Proteus mirabilis, and Pseudomonas aeruginosa. The patient is currently on daptomycin and meropenem. Progress note dated April 27, 2024. 84-year-old female admitted with a diagnosis of CHF. She seen again in room 366. She continues on oxygen by nasal cannula 2 L. She is currently on daptomycin, and meropenem. Urine cultures were positive for Pseudomonas aeruginosa. Cultures of the buttock, were positive for presumptive MRSA, Proteus mirabilis, Pseudomonas aeruginosa. Clinically she is doing about the same. She is not receiving any IV fluids. Glucose 91 today. Progress note dated April 28, 2024. 84-year-old female admitted with a diagnosis of CHF. She is again seen today in room 366. Currently she is on 2 L. Saturations are 98%. She is receiving antibiotics in the form of daptomycin and meropenem, for urine cultures that were positive for Pseudomonas, and buttock cultures which were positive for presumptive MRSA, Proteus mirabilis, and Pseudomonas. Current labs include whit e count 5, hemoglobin 9.4, hematocrit 32, platelet count 193,000. Sodium 138, potassium 4.9, chlorides 107, CO2 27, BUN 69, creatinine 1.28. Calcium is 8.1. Albumin is 2.7. Objective - Vital Signs Vital signs: Vital Signs Temp 97.0 F L 04/28/24 07:45 Pulse 67 04/28/24 07:45 Resp 16 04/28/24 07:45 BP 111/62 04/28/24 07:45 Pulse Ox 98 04/28/24 09:33 FiO2 Intake & Output 04/27/24 04/28/24 04/28/24 18:59 06:59 18:59 Intake Total 358 490 Output Total 650 650 Balance -292 -650 490 Weight 91 kg Intake: IV 10 Invasive Line 3 10 Oral 358 480 Output: Urine 450 300 Stool 200 350 Other: Voiding Method Indwelling Catheter Indwelling Catheter Indwelling Catheter - Exam No acute distress, oriented 3. Currently on 2 L nasal cannula. HEENT examination is grossly unremarkable. Mucous membranes are moist. No oral lesions. Neck supple. Full range of motion. No adenopathy thyromegaly or neck vein distention. Cardiovascular examination reveals regular rhythm rate. S1-S2 normal. No S3 or S4. No discernible murmur noted. Heart sounds are distant. Lungs reveal diminished breath sounds. Few crackles. No rhonchi. No wheezes. Abdomen soft bowel sounds are heard. No masses or tenderness. Colostomy noted. Extremities are wrapped. Skin is without rash or lesion. Neurologic examination is brief but nonfocal. - Labs CBC & Chem 7: 04/28/24 08:54 04/28/24 08:54 Labs: Abnormal Lab Results - Last 24 Hours (Table) 04/27/24 04/27/24 04/27/24 Range/Units 11:32 17:02 20:09 RBC (3.80-5.40) m/uL Hgb (11.4-16.0) gm/dL Hct (34.0-46.0) % MCHC (31.0-37.0) g/dL RDW (11.5-15.5) % Lymphocytes # (1.0-4.8) k/uL BUN (7-17) mg/dL Creatinine (0.52-1.04) mg/dL Glucose (74-99) mg/dL POC Glucose (mg/dL) 134 H 133 H 187 H (70-110) mg/dL Calcium (8.4-10.2) mg/dL Total Protein (6.3-8.2) g/dL Albumin (3.5-5.0) g/dL 04/28/24 04/28/24 Range/Units 08:54 08:54 RBC 3.50 L (3.80-5.40) m/uL Hgb 9.4 L (11.4-16.0) gm/dL Hct 32.0 L (34.0-46.0) % MCHC 29.2 L (31.0-37.0) g/dL RDW 19.1 H (11.5-15.5) % Lymphocytes # 0.9 L (1.0-4.8) k/uL BUN 69 H (7-17) mg/dL Creatinine 1.28 H (0.52-1.04) mg/dL Glucose 106 H (74-99) mg/dL POC Glucose (mg/dL) (70-110) mg/dL Calcium 8.1 L (8.4-10.2) mg/dL Total Protein 5.5 L (6.3-8.2) g/dL Albumin 2.7 L (3.5-5.0) g/dL Microbiology - Last 24 Hours (Table) 04/25/24 17:44 Urine Culture - Final Urine,Voided Pseudomonas aeruginosa 04/23/24 11:15 Gram Stain - Final Buttock Wound Culture - Final Pseudomonas aeruginosa Proteus mirabilis Methicillin resist S. aureus Assessment and Plan Assessment: Suspect acute exacerbation of diastolic CHF. Small to moderate left-sided pleural effusion. Acute dyspnea, secondary to above. Acute on chronic kidney injury. Urinary tract infection secondary to Pseudomonas aeruginosa. Buttock wound culture positive for Pseudomonas aeruginosa, Proteus mirabilis, and presumptive MRSA. Severe hyperkalemia, resolved. Chronic indwelling urinary catheter. Diabetes mellitus, type II. History of hypertension. History of hyperlipidemia. History of bowel resection and ostomy. History of left femur fracture, currently bedridden since October,. Chronic bilateral lower extremity swelling and wounds. History of DVT. Plan: Plan dated April 23, 2024. The patient is seen today in room 366. The patient is on 2 L of oxygen. The urinary sampling, showing gram-negative bacilli. It is yet to be identified. She continues on Rocephin. She is not receiving any IV fluids. The lower extremities are wrapped. We will continue to follow. CODE STATUS should be addressed. She remains a full code at this time. Plan dated April 24, 2024. The patient is seen in room 366. She remains on O2 at 2 L. No IV fluids. She continues on Rocephin. She is being followed by infectious diseases. Her urine did test positive for Pseudomonas. Additional recommendations and suggestions are forthcoming. She remains a full code. Should be addressed. Labs, x-rays, and all medications have been reviewed. Plan dated April 25, 2024. Urinary cultures were positive for Pseudomonas. Buttock cultures, were also positive for Pseudomonas. Infectious disease doctor is following, and should make decisions about antibiotics. From the pulmonary standpoint, she is relatively stable. She was admitted with an exacerbation of her diastolic CHF. She continues on 2 L. She appears not to have any respiratory distress. Labs, x-rays, and medications are reviewed. Plan dated April 26, 2024. The patient currently is on meropenem and daptomycin. Infectious diseases following the patient. The urine culture was positive for Pseudomonas aeruginosa. The buttock wound was positive for Pseudomonas aeruginosa, Proteus mirabilis, and presumptive methicillin-resistant Staph aureus. Labs, x-rays, and all medications are reviewed. We will continue to follow. Prognosis is guarded. CODE STATUS should be addressed. Plan dated April 27, 2024. The patient remained stable. The patient continues on daptomycin and meropenem. Antibiotics are being guided by the infectious disease specialist. She continues on 2 L. No additional recommendations are made. No new labs today. We will continue to follow. Plan dated April 28, 2024. The patient continues on 2 L of oxygen. Saturations are 98%. Per infectious diseases, the patient continues on antibiotics in the form of daptomycin and meropenem. She also continues on Eliquis. We will continue to follow. Prognosis is guarded. No additional recommendations are made. She remains a full code. CODE STATUS needs to be addressed by the primary service. Time with Patient: Less than 30
[2024-04-28 11:38] LABS: Glucose,Whole Blood 157 mg/dL (70-110)
--- NOTE | 2024-04-28 11:56 | P.PN ---
Subjective Progress Note Date: 04/28/24 Patient seen in follow-up for MAYRA. Cratinine is improving back to baseline level. No new complaints. Comfortable, no acute distress. Examination of the heart S1 and S2 Examination of the lungs bilateral breath sounds are heard Abdomen is soft nontender. Colostomy bag noted. Examination of lower extremities shows no significant edema, chronic skin changes Objective - Vital Signs Vital signs: Vital Signs Temp 97.0 F L 04/28/24 07:45 Pulse 67 04/28/24 07:45 Resp 16 04/28/24 07:45 BP 111/62 04/28/24 07:45 Pulse Ox 98 04/28/24 09:33 FiO2 Intake & Output 04/27/24 04/28/24 04/28/24 18:59 06:59 18:59 Intake Total 358 490 Output Total 650 650 Balance -292 -650 490 Weight 91 kg Intake: IV 10 Invasive Line 3 10 Oral 358 480 Output: Urine 450 300 Stool 200 350 Other: Voiding Method Indwelling Catheter Indwelling Catheter Indwelling Catheter - Labs CBC & Chem 7: 04/28/24 08:54 04/28/24 08:54 Labs: Abnormal Lab Results - Last 24 Hours (Table) 04/27/24 04/27/24 04/27/24 Range/Units 11:32 17:02 20:09 RBC (3.80-5.40) m/uL Hgb (11.4-16.0) gm/dL Hct (34.0-46.0) % MCHC (31.0-37.0) g/dL RDW (11.5-15.5) % Lymphocytes # (1.0-4.8) k/uL BUN (7-17) mg/dL Creatinine (0.52-1.04) mg/dL Glucose (74-99) mg/dL POC Glucose (mg/dL) 134 H 133 H 187 H (70-110) mg/dL Calcium (8.4-10.2) mg/dL Total Protein (6.3-8.2) g/dL Albumin (3.5-5.0) g/dL 04/28/24 04/28/24 Range/Units 08:54 08:54 RBC 3.50 L (3.80-5.40) m/uL Hgb 9.4 L (11.4-16.0) gm/dL Hct 32.0 L (34.0-46.0) % MCHC 29.2 L (31.0-37.0) g/dL RDW 19.1 H (11.5-15.5) % Lymphocytes # 0.9 L (1.0-4.8) k/uL BUN 69 H (7-17) mg/dL Creatinine 1.28 H (0.52-1.04) mg/dL Glucose 106 H (74-99) mg/dL POC Glucose (mg/dL) (70-110) mg/dL Calcium 8.1 L (8.4-10.2) mg/dL Total Protein 5.5 L (6.3-8.2) g/dL Albumin 2.7 L (3.5-5.0) g/dL Microbiology - Last 24 Hours (Table) 04/25/24 17:44 Urine Culture - Final Urine,Voided Pseudomonas aeruginosa 04/23/24 11:15 Gram Stain - Final Buttock Wound Culture - Final Pseudomonas aeruginosa Proteus mirabilis Methicillin resist S. aureus Assessment and Plan Assessment: 1. Hyperkalemia, 2/2 to MAYRA and use of bactrim, continues to trend down since admission, no met. acidosis (improved) 2. MAYRA, in the setting of CKD stage IIIb, ATN from low BP, volume depletion, hyaline casts noted on UA (improved). PVR negative. 3. Respiratory acidosis 4. UTI, Pseudomonas 5. Anemia rule out GI bleed and iron deficiency anemia Plan: Continue off of IV fluids Continue to hold amlodipine and hydralazineas BP is low. Maintain on low potassium diet Creatinine near baseline 1.3-1.6
[2024-04-28] MEDS: guaiFENesin-Coden 100-10MG/5ML 10 ML CUP PO PRN (13:03)
--- NOTE | 2024-04-28 13:53 | P.PN ---
Subjective Progress Note Date: 04/28/24 84-year-old female multiple comorbidities presents to the emergency department with dyspnea upon waking. Patient has multiple comorbidities. States that she feels short of breath. She is a poor historian. She denies any pain. Denies any fever, chills or night sweats. She does report a cough. Patient arrives from home. Patient is sleepy and not able to provide much history; family is not available at bedside Blood work reveals WBC of 9.2, hemoglobin of 11, platelet count of 312, sodium 137, potassium 6.7, BUNs/creatinine of 61/2.46, magnesium elevated at 2.7, BNP of 7660, lactic acid of 1.8, troponin less than 0.012, influenza, RSV and COVID- 19 PCR is negative. UA is positive for leukocyte esterase, WBCs and bacteria EKG strangely shows no P waves and is bradycardic. Laboratory evaluation obtained. CBC and coag panel is negative. Metabolic panel shows potassium 6.7 that elevated renal function. Urinalysis shows greater than 182 white blood cells. Viral testing negative. Chest x-ray shows heart failure. Patient well- appearing from respiratory standpoint. Patient given hyperkalemia cocktail. 04/22. Patient seen and examined. Blood work done this morning showed WBC 8.3, hemoglobin 9.6, sodium 135, potassium 5.6, BUN 65, creatinine 2.51. Denies any shortness of breath. 04/23. Patient seen and examined. Blood work done this morning showed WBC 7.3, hemoglobin 9.4, platelet count 232, sodium 137, potassium 5.1, BUN 57, creatinine 2.10. 2D echo done showed LVH with hyperdynamic systolic function with systolic function of 65%, moderate pulmonary hypertension. States she feels much better. 04/24. Patient seen and examined. Complaining of cough. Denies any shortness of breath at rest. 04/25. Patient seen and examined. Patient overnight developed reaction to aztreonam. 04/26. Patient seen and examined. CT sacrum done showed superficial decubitus ulcer right paramedian posterior tissues overlying the coccyx, no evidence of any abscess or osteomyelitis. Showed 2 cm long needlelike foreign bodies in the rectum, could be related to previous surgery. Patient sitting upright in the bed 04/27. Patient seen and examined no acute issues overnight. Vital signs stable. Currently on IV daptomycin and meropenem. ID planning IV antibiotics at dis charge. Patient pulled out her PICC line last night 04/28. Patient seen and examined. States she is doing better. Denies any body aches or lethargy or weakness. REVIEW OF SYSTEMS: CONSTITUTIONAL: No fever, no malaise,. CARDIOVASCULAR: No chest pain, no palpitations, no syncope. PULMONARY: As mentioned above GASTROINTESTINAL: No diarrhea, no nausea, no vomiting, no abdominal pain. NEUROLOGICAL: No headaches, no weakness, PHYSICAL EXAMINATION: GENERAL: The patient is alert and oriented x3, not in any acute distress. Well developed, well nourished. HEENT: Pupils are round and equally reacting to light. EOMI. No scleral icterus. No conjunctival pallor. Normocephalic, atraumatic. No pharyngeal erythema. No thyromegaly. CARDIOVASCULAR: S1 and S2 present. No murmurs, rubs, or gallops. PULMONARY: Chest is clear to auscultation, no wheezing or crackles. ABDOMEN: Soft, nontender, nondistended, normoactive bowel sounds. No palpable organomegaly. MUSCULOSKELETAL: No joint swelling or deformity. EXTREMITIES: Chronic lower extremity venous stasis changes and scaly pigm entation NEUROLOGICAL: Gross neurological examination did not reveal any focal deficits. SKIN: Right gluteal pressure ulcer Assessment and plan Acute on chronic diastolic CHF Stage III right gluteal pressure ulcer Hyperkalemia Acute kidney injury Left pleural effusion UTI Hypertension Diabetes mellitus History of hyperlipidemia History of bowel resection and ostomy History of left femur fracture, currently bedridden since October, Chronic bilateral lower extremity swelling and wounds History of DVT, anticoagulated on Eliquis Monitor vital signs Monitor CBC Monitor CMP Continue telemetry monitoring Avoid nephrotoxic agents Low potassium diet Strict I's and O's, daily weights Continue Eliquis Continue meropenem and daptomycin Amlodipine and hydralazine on hold secondary to soft blood pressure Continue wound care CT sacrum done showed superficial decubitus ulcer right paramedian posterior tissues overlying the coccyx, no evidence of any abscess or osteomyelitis. Showed 2 cm long needlelike foreign bodies in the rectum, could be related to previous surgery. Nephrology following Cardiology following ID following Surgery consulted, reviewed CT sacrum, recommended no surgical intervention Labs and medication were reviewed.. Continue same treatment. Continue with symptomatic treatment. Resume home medication. Monitor labs and vitals. DVT and GI prophylaxis. Further recommendations as per clinical course of the patient Dictation was produced using [employer] dictation software. please excuse any grammatical, word or spelling errors. Objective - Vital Signs Vital signs: Vital Signs Temp 97.3 F L 04/28/24 12:12 Pulse 69 04/28/24 12:12 Resp 16 04/28/24 12:12 BP 100/44 04/28/24 12:12 Pulse Ox 100 04/28/24 12:12 FiO2 Intake & Output 04/27/24 04/28/24 04/28/24 18:59 06:59 18:59 Intake Total 358 730 Output Total 650 650 675 Balance -292 -650 55 Weight 91 kg Intake: IV 10 Invasive Line 3 10 Oral 358 720 Output: Urine 450 300 275 Stool 200 350 400 Other: Voiding Method Indwelling Catheter Indwelling Catheter Indwelling Catheter - Labs CBC & Chem 7: 04/28/24 08:54 04/28/24 08:54 Labs: Abnormal Lab Results - Last 24 Hours (Table) 04/27/24 04/27/24 04/28/24 Range/Units 17:02 20:09 08:54 RBC 3.50 L (3.80-5.40) m/uL Hgb 9.4 L (11.4-16.0) gm/dL Hct 32.0 L (34.0-46.0) % MCHC 29.2 L (31.0-37.0) g/dL RDW 19.1 H (11.5-15.5) % Lymphocytes # 0.9 L (1.0-4.8) k/uL BUN (7-17) mg/dL Creatinine (0.52-1.04) mg/dL Glucose (74-99) mg/dL POC Glucose (mg/dL) 133 H 187 H (70-110) mg/dL Calcium (8.4-10.2) mg/dL Total Protein (6.3-8.2) g/dL Albumin (3.5-5.0) g/dL 04/28/24 04/28/24 Range/Units 08:54 11:31 RBC (3.80-5.40) m/uL Hgb (11.4-16.0) gm/dL Hct (34.0-46.0) % MCHC (31.0-37.0) g/dL RDW (11.5-15.5) % Lymphocytes # (1.0-4.8) k/uL BUN 69 H (7-17) mg/dL Creatinine 1.28 H (0.52-1.04) mg/dL Glucose 106 H (74-99) mg/dL POC Glucose (mg/dL) 157 H (70-110) mg/dL Calcium 8.1 L (8.4-10.2) mg/dL Total Protein 5.5 L (6.3-8.2) g/dL Albumin 2.7 L (3.5-5.0) g/dL Microbiology - Last 24 Hours (Table) 04/25/24 17:44 Urine Culture - Final Urine,Voided Pseudomonas aeruginosa 04/23/24 11:15 Gram Stain - Final Buttock Wound Culture - Final Pseudomonas aeruginosa Proteus mirabilis Methicillin resist S. aureus
--- NOTE | 2024-04-28 16:07 | P.PN ---
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 On today's evaluation that is 04/28/2024, patient has been afebrile, patient is breathing comfortably and is currently on 2 L nasal cannula oxygen, patient herber es having any chest pain did have a cough not bringing up any sputum, patient denies nausea vomiting or diarrhea and no abdominal pain, complaining of some soreness to the sacral wound area. The patient white count is 5.0 creatinine is 1.28 Objective - Vital Signs Vital signs: Vital Signs Temp 97.3 F L 04/28/24 12:12 Pulse 69 04/28/24 12:12 Resp 16 04/28/24 12:12 BP 100/44 04/28/24 12:12 Pulse Ox 100 04/28/24 12:12 FiO2 Intake & Output 04/27/24 04/28/24 04/28/24 18:59 06:59 18:59 Intake Total 358 730 Output Total 650 650 675 Balance -292 -650 55 Weight 91 kg Intake: IV 10 Invasive Line 3 10 Oral 358 720 Output: Urine 450 300 275 Stool 200 350 400 Other: Voiding Method Indwelling Catheter Indwelling Catheter Indwelling Catheter - Exam GENERAL DESCRIPTION: An elderly female lying in bed in no distress RESPIRATORY SYSTEM: Unlabored breathing , decreased breath sounds at bases HEART: S1 S2 regular rate and rhythm , ABDOMEN: Soft , no tenderness, EXTREMITIES: Bilateral heel wounds currently dressed - Labs CBC & Chem 7: 04/28/24 08:54 04/28/24 08:54 Labs: Abnormal Lab Results - Last 24 Hours (Table) 04/27/24 04/27/24 04/28/24 Range/Units 17:02 20:09 08:54 RBC 3.50 L (3.80-5.40) m/uL Hgb 9.4 L (11.4-16.0) gm/dL Hct 32.0 L (34.0-46.0) % MCHC 29.2 L (31.0-37.0) g/dL RDW 19.1 H (11.5-15.5) % Lymphocytes # 0.9 L (1.0-4.8) k/uL BUN (7-17) mg/dL Creatinine (0.52-1.04) mg/dL Glucose (74-99) mg/dL POC Glucose (mg/dL) 133 H 187 H (70-110) mg/dL Calcium (8.4-10.2) mg/dL Total Protein (6.3-8.2) g/dL Albumin (3.5-5.0) g/dL 04/28/24 04/28/24 Range/Units 08:54 11:31 RBC (3.80-5.40) m/uL Hgb (11.4-16.0) gm/dL Hct (34.0-46.0) % MCHC (31.0-37.0) g/dL RDW (11.5-15.5) % Lymphocytes # (1.0-4.8) k/uL BUN 69 H (7-17) mg/dL Creatinine 1.28 H (0.52-1.04) mg/dL Glucose 106 H (74-99) mg/dL POC Glucose (mg/dL) 157 H (70-110) mg/dL Calcium 8.1 L (8.4-10.2) mg/dL Total Protein 5.5 L (6.3-8.2) g/dL Albumin 2.7 L (3.5-5.0) g/dL Microbiology - Last 24 Hours (Table) 04/25/24 17:44 Urine Culture - Final Urine,Voided Pseudomonas aeruginosa Assessment and Plan (1) Catheter-associated urinary tract infection Current Visit: Yes Status: Acute Code(s): T83.511A - I/I REACT D/T INDWELLING URETHRAL CATHETER, INIT; N39.0 - URINARY TRACT INFECTION, SITE NOT SPECIFIED SNOMED Code(s): 427009341 (2) Allergy to multiple antibiotics Current Visit: No Status: Acute Code(s): Z88.1 - ALLERGY STATUS TO OTHER ANTIBIOTIC AGENTS SNOMED Code(s): 475582672 (3) Stage III pressure ulcer of sacral region Current Visit: Yes Status: Acute Code(s): L89.153 - PRESSURE ULCER OF SACRAL REGION, STAGE 3 SNOMED Code(s): 59105960110984 Plan: 1patient presented to hospital with shortness of breath and this patient noticed to have worsening of her kidney function elevated potassium could be related to Bactrim DS the patient was taking outpatient setting for the UTI, patient did have positive UA suprapubic discomfort a complaint of catheter associated tract infection not entirely excluded. 2patient with multiple antibiotic ALLERGIES that would limit the number of antibiotic safe to use 3patient urine culture has been finalized with the Pseudomonas aeruginosa that is sensitive to cefepime but resistant to aztreonam which has been discontinued patient is currently being treated with meropenem 4patient also have a stage III sacral ulcer with a culture growing Pseudomonas aeruginosa and as well as MRSA CT of the sacrum did not show any features of osteomyelitis, 5-patient to continue with 2-week course of IV daptomycin and meropenem on discharge Dictation was produced using [employer] dictation software. please excuse any grammatical, word or spelling errors. Time with Patient: Less than 30
[2024-04-28 16:58] LABS: Glucose,Whole Blood 108 mg/dL (70-110)
[2024-04-28 20:36] LABS: Glucose,Whole Blood 143 mg/dL (70-110)
[2024-04-29 05:58] LABS: Glucose,Whole Blood 105 mg/dL (70-110)
[2024-04-29 07:41] LABS: Anisocytosis Slight; Basophils % (A) 0 %; Eosinophils # (A) 0.5 k/uL (0-0.7); Eosinophils % (A) 10 %; HCT 30.1 % (34.0-46.0); HGB 8.7 gm/dL (11.4-16.0); Hypochromasia Marked; Lymphocytes % (A) 20 %; MCH 26.5 pg (25.0-35.0); MCHC 28.9 g/dL (31.0-37.0); MCV 91.4 fL (80.0-100.0); Mean Platelet Volume 7.1; Monocytes # (A) 0.3 k/uL (0-1.0); Monocytes % (A) 6 %; Neutrophils % (A) 61 %; Platelet Count 176 k/uL (150-450); RDW 18.9 % (11.5-15.5); WBC 4.9 k/uL (3.8-10.6)
[2024-04-29 08:00] LABS: ALT 7 U/L (4-34); AST 15 U/L (14-36); African American GFR (CKD) 44 (>60 ml/min/1.73 sqM); Albumin 2.5 g/dL (3.5-5.0); Alkaline Phosphatase 81 U/L (38-126); Anion Gap 3 mmol/L; Blood Urea Nitrogen 69 mg/dL (7-17); Calcium 7.9 mg/dL (8.4-10.2); Carbon Dioxide 29 mmol/L (22-30); Chloride 106 mmol/L (98-107); Glucose 94 mg/dL (74-99); Non-African American GFR(CKD) 38 (>60 ml/min/1.73 sqM); Potassium 4.8 mmol/L (3.5-5.1); Sodium 138 mmol/L (137-145); Total Bilirubin 0.2 mg/dL (0.2-1.3); Total Protein 5.1 g/dL (6.3-8.2)
[2024-04-29 11:45] LABS: Glucose,Whole Blood 130 mg/dL (70-110)
--- NOTE | 2024-04-29 12:16 | P.PN ---
Subjective Progress Note Date: 04/29/24 84-year-old female multiple comorbidities presents to the emergency department with dyspnea upon waking. Patient has multiple comorbidities. States that she feels short of breath. She is a poor historian. She denies any pain. Denies any fever, chills or night sweats. She does report a cough. Patient arrives from home. Patient is sleepy and not able to provide much history; family is not available at bedside Blood work reveals WBC of 9.2, hemoglobin of 11, platelet count of 312, sodium 137, potassium 6.7, BUNs/creatinine of 61/2.46, magnesium elevated at 2.7, BNP of 7660, lactic acid of 1.8, troponin less than 0.012, influenza, RSV and COVID- 19 PCR is negative. UA is positive for leukocyte esterase, WBCs and bacteria EKG strangely shows no P waves and is bradycardic. Laboratory evaluation obtained. CBC and coag panel is negative. Metabolic panel shows potassium 6.7 that elevated renal function. Urinalysis shows greater than 182 white blood cells. Viral testing negative. Chest x-ray shows heart failure. Patient well- appearing from respiratory standpoint. Patient given hyperkalemia cocktail. 04/22. Patient seen and examined. Blood work done this morning showed WBC 8.3, hemoglobin 9.6, sodium 135, potassium 5.6, BUN 65, creatinine 2.51. Denies any shortness of breath. 04/23. Patient seen and examined. Blood work done this morning showed WBC 7.3, hemoglobin 9.4, platelet count 232, sodium 137, potassium 5.1, BUN 57, creatinine 2.10. 2D echo done showed LVH with hyperdynamic systolic function with systolic function of 65%, moderate pulmonary hypertension. States she feels much better. 04/24. Patient seen and examined. Complaining of cough. Denies any shortness of breath at rest. 04/25. Patient seen and examined. Patient overnight developed reaction to aztreonam. 04/26. Patient seen and examined. CT sacrum done showed superficial decubitus ulcer right paramedian posterior tissues overlying the coccyx, no evidence of any abscess or osteomyelitis. Showed 2 cm long needlelike foreign bodies in the rectum, could be related to previous surgery. Patient sitting upright in the bed 04/27. Patient seen and examined no acute issues overnight. Vital signs stable. Currently on IV daptomycin and meropenem. ID planning IV antibiotics at dis charge. Patient pulled out her PICC line last night 04/28. Patient seen and examined. States she is doing better. Denies any body aches or lethargy or weakness. 04/29. Patient seen and examined. Currently waiting on PICC line placement, case management board, working on outpatient IV antibiotics set up REVIEW OF SYSTEMS: CONSTITUTIONAL: No fever, no malaise,. CARDIOVASCULAR: No chest pain, no palpitations, no syncope. PULMONARY: As mentioned above GASTROINTESTINAL: No diarrhea, no nausea, no vomiting, no abdominal pain. NEUROLOGICAL: No headaches, no weakness, PHYSICAL EXAMINATION: GENERAL: The patient is alert and oriented x3, not in any acute distress. Well developed, well nourished. HEENT: Pupils are round and equally reacting to light. EOMI. No scleral icterus. No conjunctival pallor. Normocephalic, atraumatic. No pharyngeal erythema. No thyromegaly. CARDIOVASCULAR: S1 and S2 present. No murmurs, rubs, or gallops. PULMONARY: Chest is clear to auscultation, no wheezing or crackles. ABDOMEN: Soft, nontender, nondistended, normoactive bowel sounds. Ostomy noted MUSCULOSKELETAL: No joint swelling or deformity. EXTREMITIES: Chronic lower extremity venous stasis changes and scaly pigmentation NEUROLOGICAL: Gross neurological examination did not reveal any focal deficits. SKIN: Right gluteal pressure ulcer Assessment and plan Acute on chronic diastolic CHF Stage III right gluteal pressure ulcer Hyperkalemia Acute kidney injury Left pleural effusion UTI Hypertension Diabetes mellitus History of hyperlipidemia History of bowel resection and ostomy History of left femur fracture, currently bedridden since October, Chronic bilateral lower extremity swelling and wounds History of DVT, anticoagulated on Eliquis Monitor vital signs Monitor CBC Monitor CMP Continue telemetry monitoring Avoid nephrotoxic agents Low potassium diet Strict I's and O's, daily weights Continue Eliquis Continue meropenem and daptomycin Amlodipine and hydralazine on hold secondary to soft blood pressure Continue wound care CT sacrum done showed superficial decubitus ulcer right paramedian posterior tissues overlying the coccyx, no evidence of any abscess or osteomyelitis. Showed 2 cm long needlelike foreign bodies in the rectum, could be related to previous surgery. Nephrology following Cardiology following ID following Surgery consulted, reviewed CT sacrum, recommended no surgical intervention Labs and medication were reviewed.. Continue same treatment. Continue with symptomatic treatment. Resume home medication. Monitor labs and vitals. DVT and GI prophylaxis. Further recommendations as per clinical course of the patient Dictation was produced using [employer] dictation software. please excuse any grammatical, word or spelling errors. Objective - Vital Signs Vital signs: Vital Signs Temp 97.8 F 04/29/24 08:00 Pulse 71 04/29/24 08:00 Resp 18 04/29/24 08:00 BP 127/64 04/29/24 08:00 Pulse Ox 100 04/29/24 08:00 FiO2 Intake & Output 04/28/24 04/29/24 04/29/24 18:59 06:59 18:59 Intake Total 1090 240 180 Output Total 925 200 Balance 165 40 180 Weight 91.5 kg Intake: IV 10 Invasive Line 3 10 Oral 1080 240 180 Output: Urine 525 Stool 400 200 Other: Voiding Method Indwelling Catheter Indwelling Catheter - Labs CBC & Chem 7: 04/29/24 07:07 04/29/24 07:07 Labs: Abnormal Lab Results - Last 24 Hours (Table) 04/28/24 04/28/24 04/29/24 Range/Units 11:31 20:34 07:07 RBC 3.30 L (3.80-5.40) m/uL Hgb 8.7 L (11.4-16.0) gm/dL Hct 30.1 L (34.0-46.0) % MCHC 28.9 L (31.0-37.0) g/dL RDW 18.9 H (11.5-15.5) % BUN (7-17) mg/dL Creatinine (0.52-1.04) mg/dL POC Glucose (mg/dL) 157 H 143 H (70-110) mg/dL Calcium (8.4-10.2) mg/dL Total Protein (6.3-8.2) g/dL Albumin (3.5-5.0) g/dL 04/29/24 Range/Units 07:07 RBC (3.80-5.40) m/uL Hgb (11.4-16.0) gm/dL Hct (34.0-46.0) % MCHC (31.0-37.0) g/dL RDW (11.5-15.5) % BUN 69 H (7-17) mg/dL Creatinine 1.28 H (0.52-1.04) mg/dL POC Glucose (mg/dL) (70-110) mg/dL Calcium 7.9 L (8.4-10.2) mg/dL Total Protein 5.1 L (6.3-8.2) g/dL Albumin 2.5 L (3.5-5.0) g/dL
--- NOTE | 2024-04-29 13:34 | P.PN ---
Subjective Progress Note Date: 04/29/24 CHIEF COMPLAINT: Sacral decubitus ulcer HISTORY OF PRESENT ILLNESS: Patient resting comfortably. No new complaints. Afebrile. WBC 4.9 PHYSICAL EXAM: VITAL SIGNS: Reviewed. GENERAL: no acute distress. ABDOMEN: Soft. Nondistended. Nontender. ASSESSMENT: 1. Sacral decubitus ulcer 2. Foreign body in the rectum PLAN: -No surgical intervention planned -Continue local wound care to the decubitus sacral ulcer -Foreign body in rectum likely related to prior surgical intervention. Per surgeon no need for surgical intervention to remove as it is not causing issues. Physician Manufacturing Design Engineer note has been reviewed by physician. Signing provider agrees with the documented findings, assessment, and plan of care. Objective - Vital Signs Vital signs: Vital Signs Temp 98.2 F 04/29/24 11:49 Pulse 68 04/29/24 11:49 Resp 18 04/29/24 11:49 BP 131/65 04/29/24 11:49 Pulse Ox 98 04/29/24 11:49 FiO2 Intake & Output 04/28/24 04/29/24 04/29/24 18:59 06:59 18:59 Intake Total 1090 240 180 Output Total 925 200 Balance 165 40 180 Weight 91.5 kg Intake: IV 10 Invasive Line 3 10 Oral 1080 240 180 Output: Urine 525 Stool 400 200 Other: Voiding Method Indwelling Catheter Indwelling Catheter Indwelling Catheter - Labs CBC & Chem 7: 04/29/24 07:07 04/29/24 07:07 Labs: Abnormal Lab Results - Last 24 Hours (Table) 04/28/24 04/29/24 04/29/24 Range/Units 20:34 07:07 07:07 RBC 3.30 L (3.80-5.40) m/uL Hgb 8.7 L (11.4-16.0) gm/dL Hct 30.1 L (34.0-46.0) % MCHC 28.9 L (31.0-37.0) g/dL RDW 18.9 H (11.5-15.5) % BUN 69 H (7-17) mg/dL Creatinine 1.28 H (0.52-1.04) mg/dL POC Glucose (mg/dL) 143 H (70-110) mg/dL Calcium 7.9 L (8.4-10.2) mg/dL Total Protein 5.1 L (6.3-8.2) g/dL Albumin 2.5 L (3.5-5.0) g/dL 04/29/24 Range/Units 11:43 RBC (3.80-5.40) m/uL Hgb (11.4-16.0) gm/dL Hct (34.0-46.0) % MCHC (31.0-37.0) g/dL RDW (11.5-15.5) % BUN (7-17) mg/dL Creatinine (0.52-1.04) mg/dL POC Glucose (mg/dL) 130 H (70-110) mg/dL Calcium (8.4-10.2) mg/dL Total Protein (6.3-8.2) g/dL Albumin (3.5-5.0) g/dL
--- NOTE | 2024-04-29 14:20 | P.PN ---
Subjective Progress Note Date: 04/29/24 Patient seen at bedside. No acute events overnight. Creatinine still at 1.28. Potassium was 5 now at 4.8. Hgb from 9.4 to 8.7. MCV 91.4 Objective - Vital Signs Vital signs: Vital Signs Temp 97.8 F 04/29/24 08:00 Pulse 71 04/29/24 08:00 Resp 18 04/29/24 08:00 BP 127/64 04/29/24 08:00 Pulse Ox 100 04/29/24 08:00 FiO2 Intake & Output 04/28/24 04/29/24 04/29/24 18:59 06:59 18:59 Intake Total 1090 240 180 Output Total 925 200 Balance 165 40 180 Weight 91.5 kg Intake: IV 10 Invasive Line 3 10 Oral 1080 240 180 Output: Urine 525 Stool 400 200 Other: Voiding Method Indwelling Catheter Indwelling Catheter - Exam Physical examination: Vital signs reviewed General: non toxic, no distress, appears at stated age, normal weight Derm: no unusual rashes/lesions, warm Head: atraumatic, normocephalic, symmetric Eyes: EOMI, no lid lag, anicteric sclera, pupils equal round reactive to light ENT: Nose and ears atraumatic Neck: No cervical lymphadenopathy, trachea midline, supple Mouth: no lip lesion, mucus membranes moist Cardiovascular: S1S2 reg, no murmur, Lungs: CTA bilateral, no rhonchi, no rales, no accessory muscle use Abdominal: soft, nontender to palpation, no guarding Ext: muscle strength 5 out of 5 in all 4 extremities grossly, no gross muscle atrophy, no contractures, positive dorsalis pedis pulse bilateral, no edema Neuro: CN II-XI grossly intact, no gross focal neuro deficits Psych: Alert, oriented, appropriate affect and mood - Labs CBC & Chem 7: 04/29/24 07:07 04/29/24 07:07 Labs: Abnormal Lab Results - Last 24 Hours (Table) 04/28/24 04/28/24 04/29/24 Range/Units 11:31 20:34 07:07 RBC 3.30 L (3.80-5.40) m/uL Hgb 8.7 L (11.4-16.0) gm/dL Hct 30.1 L (34.0-46.0) % MCHC 28.9 L (31.0-37.0) g/dL RDW 18.9 H (11.5-15.5) % BUN (7-17) mg/dL Creatinine (0.52-1.04) mg/dL POC Glucose (mg/dL) 157 H 143 H (70-110) mg/dL Calcium (8.4-10.2) mg/dL Total Protein (6.3-8.2) g/dL Albumin (3.5-5.0) g/dL 04/29/24 Range/Units 07:07 RBC (3.80-5.40) m/uL Hgb (11.4-16.0) gm/dL Hct (34.0-46.0) % MCHC (31.0-37.0) g/dL RDW (11.5-15.5) % BUN 69 H (7-17) mg/dL Creatinine 1.28 H (0.52-1.04) mg/dL POC Glucose (mg/dL) (70-110) mg/dL Calcium 7.9 L (8.4-10.2) mg/dL Total Protein 5.1 L (6.3-8.2) g/dL Albumin 2.5 L (3.5-5.0) g/dL Assessment and Plan Assessment: 1. Hyperkalemia, 2/2 to MAYRA and use of bactrim, continues to trend down since ad mission, no met. acidosis (improved) 2. MAYRA, in the setting of CKD stage IIIb, ATN from low BP, volume depletion, hyaline casts noted on UA (improved). PVR negative. Uls neg for hydronephrosis. Cr baseline 1.3-1.5 3. Respiratory acidosis, improved 4. Complicated UTI, Pseudomonas 5. Hx of chronic hudson catheter. 6. CHF exacerbation with preserved EF 65% 5. Anemia rule out GI bleed and iron deficiency anemia Plan: Continue off of IV fluids Continue to hold amlodipine and hydralazineas BP is low. Maintain on low potassium diet Creatinine stable 1.28 ID following. On meropenem and daptomycin. Renal function improved. Avoid nephrotoxic agents I have seen and examined the patient with resident and agree with A&P as written. Herber changed this admission.
[2024-04-29 16:17] LABS: Glucose,Whole Blood 145 mg/dL (70-110)
--- NOTE | 2024-04-29 17:13 | P.PN ---
Subjective Progress Note Date: 04/29/24 Patient is an 84-year-old female with past medical history significant for multiple medical comorbidities including hypertension, diabetes mellitus, chronic kidney disease, colon cancer with previous bowel resection and ostomy, femur fracture leaving her bedridden, chronic bilateral lower extremity wounds, DVT anticoagulated on Eliquis. Also, recently treated by her PCP, on an outpatient basis for UTI with Bactrim. Patient is currently in the emergency department room 9, she states that over the last 2 to 3 months she has been progressively more short of breath. She may have history of CHF. States that her lower extremities are chronically swollen. She does take Tosemide at home. Denies missing doses. Chest x-ray showing stable cardiac silhouette, pulmonary vascular congestion, and small to moderate left-sided pleural effusion with adjacent atelectasis and/or consolidation. Patient denies any infectious symptoms. She does have an occasional nonproductive cough. No fevers, chills, sputum production, chest pain. CBC: WBC count 9, hemoglobin 11, hematocrit 38.5, platelets 312. CMP: Sodium 137, potassium 6.9, chloride 98, serum bicarb 25, BUN 61, creatinine 2.46, glucose 138. Lactic 1.8. LFTs unremarkable. Troponin less than 0.012. NT proBNP 7660. Ultrasound of kidneys/renal/bladder showing bilateral chronic renal disease. No hydronephrosis. Overall limited exam. Urinalysis showing few bacteria and large leukocyte esterase. She has a chronic indwelling urinary catheter. Reportedly, last changed Monday. Kidney function is worse than baseline. Reportedly undergoing current treatment for UTI outpatient with Bactrim. Was started on Rocephin in the emergency de partment. Hyperkalemia has been treated with the hyperkalemia cocktail. Also, receiving doses of Lokelma. Most recent potassium down to 5.8. EKG: Appears junctional rhythm with a rate of 56 bpm. No acute ischemic changes. No hyperacute T waves or QRS widening. QT/QTc 398/391. Patient is currently resting comfortably in the stretcher. She is on 2 L nasal cannula. SpO2 is reading 100%. She does not ambulate and has been bedbound since October. Does not appear dyspneic at rest. Normal saline infusing at 75 mL/h. Hemodynamics appear stable. Progress note dated April 23, 2024. 84-year-old female admitted with a diagnosis of congestive heart failure, urinary tract infection. She is seen today in room 366. He is currently on 2 L of oxygen by nasal cannula. She is not receiving any IV fluids. She continues on IV Rocephin. Current laboratory data includes a white count 7.3, hemoglobin 9.4, hematocrit 31.4, and a normal platelet count. Sodium 137, potassium 5.1, chlorides 100, CO2 28, BUN 57, creatinine 2.10. Glucose is 252. Calcium is 8. Albumin is 3.0. Urine is revealing evidence of gram-negative bacilli. It is yet to be identified. Progress note dated April 24, 2024. 84-year-old female who was admitted with a diagnosis of congestive heart failure, urinary tract infection, and lower extremity wounds. The patient's urine tested positive for Pseudomonas. She currently is on Rocephin. She is being followed by infectious diseases. White count is 5.9, hemoglobin 9.5, hematocrit 33.4, platelet count 240,000. Sodium 138, potassium 4.9, chlorides 103, CO2 31, BUN 54, and creatinine 1.93. Calcium is 8. Albumin is 2.9. Progress note dated April 25, 2024. 84-year-old female admitted with a diagnosis of CHF. The patient is seen today in room 366. She is not receiving any IV fluids. She continues on nasal cannula 2 L. She appears in no acute distress. Current labs include a sodium 137, potassium 5.3, chlorides 101, CO2 33, BUN 64, and creatinine 1.75. Glucose is 96. Calcium is 8.1. Urine culture was positive for Pseudomonas aeruginosa. Wound culture on the buttock was positive for gram-negative bacilli and Pseudomonas. The patient is currently not on an antibiotic. ID should be consulted. Progress note dated April 26, 2024. 84-year-old female admitted with a diagnosis of infection, and congestive heart failure, is seen again in room 366. She is not receiving any IV fluids. She continues on nasal O2 at 2 L. The patient is resting comfortably in bed, without complaint. Current labs include a white count of 6.1, hemoglobin 10.2, hematocrit 35.2, and a platelet count of 223,000. Sodium 137, potassium 5.1, ch lorides 104, CO2 28, BUN 69, and creatinine 1.61. Glucose is 117. Albumin is 3.3. Urine cultures are positive for Pseudomonas aeruginosa. Wound cultures of the buttock, were positive for presumptive MRSA, Proteus mirabilis, and Pseudomonas aeruginosa. The patient is currently on daptomycin and meropenem. Progress note dated April 27, 2024. 84-year-old female admitted with a diagnosis of CHF. She seen again in room 366. She continues on oxygen by nasal cannula 2 L. She is currently on daptomycin, and meropenem. Urine cultures were positive for Pseudomonas aeruginosa. Cultures of the buttock, were positive for presumptive MRSA, Proteus mirabilis, Pseudomonas aeruginosa. Clinically she is doing about the same. She is not receiving any IV fluids. Glucose 91 today. Progress note dated April 28, 2024. 84-year-old female admitted with a diagnosis of CHF. She is again seen today in room 366. Currently she is on 2 L. Saturations are 98%. She is receiving a ntibiotics in the form of daptomycin and meropenem, for urine cultures that were positive for Pseudomonas, and buttock cultures which were positive for presumptive MRSA, Proteus mirabilis, and Pseudomonas. Current labs include white count 5, hemoglobin 9.4, hematocrit 32, platelet count 193,000. Sodium 138, potassium 4.9, chlorides 107, CO2 27, BUN 69, creatinine 1.28. Calcium is 8.1. Albumin is 2.7. 04/29/2024, patient is being seen for a follow-up. The patient is resting comfortably in bed and the patient is on 2 L of oxygen by nasal cannula with a pulse ox of 99%. No significant respiratory distress. No chest pain. No cough or sputum production. No chest tightness or wheezing. The patient is awaiting a PICC line to be placed for outpatient antibiotic treatment. She has been t reated for an acute on top of chronic diastolic heart failure and the patient has a stage III right gluteus pressure ulcer. Her urine culture is positive for Pseudomonas aeruginosa and she was also wound culture that showing a combination of Pseudomonas, Proteus and MRSA. The patient remains on the same antibiotic coverage including combination of daptomycin and IV meropenem. ID is on the case. In terms of labs, the white cell count of 4.9 with a hemoglobin 8.7 and a platelet count of 176. BUN of 69 with a creatinine of 1.28. Sodium levels at 138 with a potassium level of 4.8. Objective - Vital Signs Vital signs: Vital Signs Temp 97.8 F 04/29/24 08:00 Pulse 71 04/29/24 08:00 Resp 18 04/29/24 08:00 BP 127/64 04/29/24 08:00 Pulse Ox 100 04/29/24 08:00 FiO2 Intake & Output 04/28/24 04/29/24 04/29/24 18:59 06:59 18:59 Intake Total 1090 240 180 Output Total 925 200 Balance 165 40 180 Weight 91.5 kg Intake: IV 10 Invasive Line 3 10 Oral 1080 240 180 Output: Urine 525 Stool 400 200 Other: Voiding Method Indwelling Catheter Indwelling Catheter - Exam No acute distress, oriented 3. Currently on 2 L nasal cannula. HEENT examination is grossly unremarkable. Mucous membranes are moist. No oral lesions. Neck supple. Full range of motion. No adenopathy thyromegaly or neck vein distention. Cardiovascular examination reveals regular rhythm rate. S1-S2 normal. No S3 or S4. No discernible murmur noted. Heart sounds are distant. Lungs reveal diminished breath sounds. Few crackles. No rhonchi. No wheezes. Abdomen soft bowel sounds are heard. No masses or tenderness. Colostomy noted. Extremities are wrapped. Skin is without rash or lesion. Neurologic examination is brief but nonfocal. - Labs CBC & Chem 7: 04/29/24 07:07 04/29/24 07:07 Labs: Abnormal Lab Results - Last 24 Hours (Table) 04/28/24 04/28/24 04/29/24 Range/Units 11:31 20:34 07:07 RBC 3.30 L (3.80-5.40) m/uL Hgb 8.7 L (11.4-16.0) gm/dL Hct 30.1 L (34.0-46.0) % MCHC 28.9 L (31.0-37.0) g/dL RDW 18.9 H (11.5-15.5) % BUN (7-17) mg/dL Creatinine (0.52-1.04) mg/dL POC Glucose (mg/dL) 157 H 143 H (70-110) mg/dL Calcium (8.4-10.2) mg/dL Total Protein (6.3-8.2) g/dL Albumin (3.5-5.0) g/dL 04/29/24 Range/Units 07:07 RBC (3.80-5.40) m/uL Hgb (11.4-16.0) gm/dL Hct (34.0-46.0) % MCHC (31.0-37.0) g/dL RDW (11.5-15.5) % BUN 69 H (7-17) mg/dL Creatinine 1.28 H (0.52-1.04) mg/dL POC Glucose (mg/dL) (70-110) mg/dL Calcium 7.9 L (8.4-10.2) mg/dL Total Protein 5.1 L (6.3-8.2) g/dL Albumin 2.5 L (3.5-5.0) g/dL Assessment and Plan Plan: acute exacerbation of diastolic CHF, stable Small to moderate left-sided pleural effusion, stable currently on 3 Suboxone by nasal cannula with a pulse ox of 99%. Ultrasound of the chest showed a 5.9 cm pocket in the left consistent with pleural effusion. The patient has not required thoracentesis measures condition has remained stable while being optimized for CHF. Acute dyspnea, secondary to above, Stable Acute on chronic kidney injury, improving and the patient's creatinine is down trending Urinary tract infection secondary to Pseudomonas aeruginosa. Buttock wound culture positive for Pseudomonas aeruginosa, Proteus mirabilis, and presumptive MRSA. Severe hyperkalemia, resolved. Chronic indwelling urinary catheter. Diabetes mellitus, type II. History of hypertension. History of hyperlipidemia. History of bowel resection and ostomy. History of left femur fracture, currently bedridden since October,. Chronic bilateral lower extremity swelling and wounds. History of DVT. Plan: The patient continues on 2 L of oxygen. Saturations are 98%. PICC line to be inserted today The patient continues on antibiotics in the form of daptomycin and meropenem. Anticoagulation with Eliquis. She remains a full code. CODE STATUS needs to be addressed by the primary service.
[2024-04-29 20:29] LABS: Glucose,Whole Blood 166 mg/dL (70-110)
[2024-04-29] MEDS: INSULIN ASPART (NovoLOG) 100 UNIT/ML VIAL SQ SCH (21:15)
[2024-04-30 06:11] LABS: Glucose,Whole Blood 123 mg/dL (70-110)
[2024-04-30 07:26] LABS: Anisocytosis Slight; Basophils % (A) 0 %; Eosinophils # (A) 0.6 k/uL (0-0.7); Eosinophils % (A) 10 %; HCT 32.6 % (34.0-46.0); HGB 9.3 gm/dL (11.4-16.0); Hypochromasia Marked; Lymphocytes # (A) 1.1 k/uL (1.0-4.8); Lymphocytes % (A) 18 %; MCH 26.2 pg (25.0-35.0); MCHC 28.5 g/dL (31.0-37.0); Mean Platelet Volume 7.3; Monocytes # (A) 0.4 k/uL (0-1.0); Monocytes % (A) 6 %; Neutrophils # (A) 3.7 k/uL (1.3-7.7); Neutrophils % (A) 63 %; Platelet Count 164 k/uL (150-450); RBC 3.54 m/uL (3.80-5.40); RDW 18.8 % (11.5-15.5); WBC 5.9 k/uL (3.8-10.6)
[2024-04-30 07:45] LABS: ALT 7 U/L (4-34); AST 14 U/L (14-36); African American GFR (CKD) 51 (>60 ml/min/1.73 sqM); Albumin 2.5 g/dL (3.5-5.0); Alkaline Phosphatase 92 U/L (38-126); Anion Gap 2 mmol/L; Blood Urea Nitrogen 65 mg/dL (7-17); Calcium 8.1 mg/dL (8.4-10.2); Carbon Dioxide 27 mmol/L (22-30); Chloride 108 mmol/L (98-107); Glucose 98 mg/dL (74-99); Magnesium 2.4 mg/dL (1.6-2.3); Non-African American GFR(CKD) 45 (>60 ml/min/1.73 sqM); Sodium 137 mmol/L (137-145); Total Bilirubin 0.1 mg/dL (0.2-1.3); Total Protein 5.3 g/dL (6.3-8.2)
--- NOTE | 2024-04-30 10:34 | P.PN ---
Subjective Patient seen at bedside. No acute events overnight. Creatinine at 1.28 now at 1.12. Potassium 5 -> 4.8 -> 5. Hgb from 9.4 -> 8.7 -> 9.3. MCV 91.4 -> 92 Objective - Vital Signs Vital signs: Vital Signs Temp 97.5 F L 04/30/24 08:18 Pulse 67 04/30/24 08:18 Resp 18 04/30/24 08:18 BP 125/91 04/30/24 08:18 Pulse Ox 99 04/30/24 08:18 FiO2 Intake & Output 04/29/24 04/30/24 04/30/24 18:59 06:59 18:59 Intake Total 660 290 Output Total 1100 300 Balance -440 -10 Weight 92.5 kg Intake: IV 10 Invasive Line 6 10 Oral 660 280 Output: Urine 900 300 Stool 200 Other: Voiding Method Indwelling Catheter Indwelling Catheter - Exam Physical examination: Vital signs reviewed General: non toxic, no distress, appears at stated age, normal weight Head: atraumatic, normocephalic, symmetric Mouth: no lip lesion, mucus membranes moist Cardiovascular: S1S2 reg, no murmur Lungs: CTA bilateral, no rhonchi, no rales, no accessory muscle use Abdominal: soft, nontender to palpation, no guarding Ext: muscle strength 5 out of 5 in all 4 extremities grossly, no gross muscle atrophy, no contractures, positive dorsalis pedis pulse bilateral, no edema Neuro: no gross focal neuro deficits Psych: Alert, oriented, appropriate affect and mood - Labs CBC & Chem 7: 04/30/24 07:10 04/30/24 07:10 Labs: Abnormal Lab Results - Last 24 Hours (Table) 04/29/24 04/29/24 04/29/24 Range/Units 11:43 16:14 20:27 RBC (3.80-5.40) m/uL Hgb (11.4-16.0) gm/dL Hct (34.0-46.0) % MCHC (31.0-37.0) g/dL RDW (11.5-15.5) % Chloride (98-107) mmol/L BUN (7-17) mg/dL Creatinine (0.52-1.04) mg/dL POC Glucose (mg/dL) 130 H 145 H 166 H (70-110) mg/dL Calcium (8.4-10.2) mg/dL Magnesium (1.6-2.3) mg/dL Total Bilirubin (0.2-1.3) mg/dL Total Protein (6.3-8.2) g/dL Albumin (3.5-5.0) g/dL 04/30/24 04/30/24 04/30/24 Range/Units 06:09 07:10 07:10 RBC 3.54 L (3.80-5.40) m/uL Hgb 9.3 L (11.4-16.0) gm/dL Hct 32.6 L (34.0-46.0) % MCHC 28.5 L (31.0-37.0) g/dL RDW 18.8 H (11.5-15.5) % Chloride 108 H (98-107) mmol/L BUN 65 H (7-17) mg/dL Creatinine 1.12 H (0.52-1.04) mg/dL POC Glucose (mg/dL) 123 H (70-110) mg/dL Calcium 8.1 L (8.4-10.2) mg/dL Magnesium 2.4 H (1.6-2.3) mg/dL Total Bilirubin 0.1 L (0.2-1.3) mg/dL Total Protein 5.3 L (6.3-8.2) g/dL Albumin 2.5 L (3.5-5.0) g/dL Assessment and Plan Assessment: 1. Hyperkalemia, 2/2 to MAYRA and use of bactrim, continues to trend down since admission, no metabolic acidosis (improved) 2. MAYRA, in the setting of CKD stage IIIb, ATN from low BP, volume depletion, hyaline casts noted on UA (improved). PVR negative. ultrasound neg for hydronephrosis. Cr baseline 1.3-1.5 3. Respiratory acidosis, improved 4. Complicated UTI, Pseudomonas. 6. Hx of chronic hudson catheter. Catheter changed during admission 7. CHF exacerbation with preserved EF 65% 8. Anemia rule out GI bleed and iron deficiency anemia Plan: Continue off of IV fluids Maintain on low potassium diet Creatinine improving at 1.12. ID following. On meropenem and daptomycin for pseudomonal coverage Avoid nephrotoxic agents. I have seen and examined the patient with resident and agree with A&P as written. Ok to resume amlodipine if bp staying above 140/90.
[2024-04-30] MEDS: diphenhydrAMINE 50 MG/ML 1 ML VIAL IVP STA (11:15)
[2024-04-30 11:36] LABS: Glucose,Whole Blood 132 mg/dL (70-110)
--- NOTE | 2024-04-30 13:58 | P.PN ---
Subjective Progress Note Date: 04/29/24 Principal diagnosis: Reason for follow-up is catheter assisted UTI Patient is a 84-year-old female with a past medical history significant for diabetes mellitus hypertension hyperlipidemia renal disorder, bilateral lower extremity ulcers as well as urinary retention requiring chronic indwelling Craven catheter presented to hospital with increasing shortness of breath apparently was getting back from an outpatient setting for UTI did have positive UA suprapubic pain and discomfort concerning for cystitis. On today's evaluation that is 04/29/2024, Patient is afebrile this morning patient denies having any chest pain shortness of breath has been complaining of some cough but no bilirubin sputum, the patient is breathing comfortably on 2 L nasal oxygen, patient denies any abdominal pain no diarrhea no nausea no vomiting. Patient white count is 4.9 creatinine is 1.28 Objective - Vital Signs Vital signs: Vital Signs Temp 97.8 F 04/29/24 08:00 Pulse 71 04/29/24 08:00 Resp 18 04/29/24 08:00 BP 127/64 04/29/24 08:00 Pulse Ox 100 04/29/24 08:00 FiO2 Intake & Output 04/28/24 04/29/24 04/29/24 18:59 06:59 18:59 Intake Total 1090 240 180 Output Total 925 200 Balance 165 40 180 Weight 91.5 kg Intake: IV 10 Invasive Line 3 10 Oral 1080 240 180 Output: Urine 525 Stool 400 200 Other: Voiding Method Indwelling Catheter Indwelling Catheter Indwelling Catheter - Exam GENERAL DESCRIPTION: An elderly female lying in bed in no distress RESPIRATORY SYSTEM: Unlabored breathing , decreased breath sounds at bases HEART: S1 S2 regular rate and rhythm , ABDOMEN: Soft , no tenderness, EXTREMITIES: Bilateral heel wounds currently dressed - Labs CBC & Chem 7: 04/30/24 07:10 04/30/24 07:10 Labs: Abnormal Lab Results - Last 24 Hours (Table) 04/28/24 04/28/24 04/29/24 Range/Units 11:31 20:34 07:07 RBC 3.30 L (3.80-5.40) m/uL Hgb 8.7 L (11.4-16.0) gm/dL Hct 30.1 L (34.0-46.0) % MCHC 28.9 L (31.0-37.0) g/dL RDW 18.9 H (11.5-15.5) % BUN (7-17) mg/dL Creatinine (0.52-1.04) mg/dL POC Glucose (mg/dL) 157 H 143 H (70-110) mg/dL Calcium (8.4-10.2) mg/dL Total Protein (6.3-8.2) g/dL Albumin (3.5-5.0) g/dL 04/29/24 Range/Units 07:07 RBC (3.80-5.40) m/uL Hgb (11.4-16.0) gm/dL Hct (34.0-46.0) % MCHC (31.0-37.0) g/dL RDW (11.5-15.5) % BUN 69 H (7-17) mg/dL Creatinine 1.28 H (0.52-1.04) mg/dL POC Glucose (mg/dL) (70-110) mg/dL Calcium 7.9 L (8.4-10.2) mg/dL Total Protein 5.1 L (6.3-8.2) g/dL Albumin 2.5 L (3.5-5.0) g/dL Assessment and Plan (1) Catheter-associated urinary tract infection Current Visit: Yes Status: Acute Code(s): T83.511A - I/I REACT D/T INDWELLING URETHRAL CATHETER, INIT; N39.0 - URINARY TRACT INFECTION, SITE NOT SPECIFIED SNOMED Code(s): 971283396 (2) Allergy to multiple antibiotics Current Visit: No Status: Acute Code(s): Z88.1 - ALLERGY STATUS TO OTHER ANTIBIOTIC AGENTS SNOMED Code(s): 719711331 (3) Stage III pressure ulcer of sacral region Current Visit: Yes Status: Acute Code(s): L89.153 - PRESSURE ULCER OF SACRAL REGION, STAGE 3 SNOMED Code(s): 61408163133643 Plan: 1patient presented to hospital with shortness of breath and this patient noticed to have worsening of her kidney function elevated potassium could be related to Bactrim DS the patient was taking outpatient setting for the UTI, patient did have positive UA suprapubic discomfort a complaint of catheter associated tract infection not entirely excluded. 2patient with multiple antibiotic ALLERGIES that would limit the number of antibiotic safe to use 3patient urine culture has been finalized with the Pseudomonas aeruginosa that is sensitive to cefepime but resistant to aztreonam, patient is currently being treated with meropenem 4patient also have a stage III sacral ulcer with a culture growing Pseudomonas aeruginosa and as well as MRSA CT of the sacrum did not show any features of osteomyelitis, 5-patient is slowly clinical improving, plan is to to continue with 2-week course of IV daptomycin and meropenem on discharge Dictation was produced using [employer] dictation software. please excuse any grammatical, word or spelling errors. Time with Patient: Less than 30
--- NOTE | 2024-04-30 13:59 | P.PN ---
Subjective Progress Note Date: 04/30/24 Principal diagnosis: Reason for follow-up is catheter assisted UTI Patient is a 84-year-old female with a past medical history significant for diabetes mellitus hypertension hyperlipidemia renal disorder, bilateral lower extremity ulcers as well as urinary retention requiring chronic indwelling Craven catheter presented to hospital with increasing shortness of breath apparently was getting back from an outpatient setting for UTI did have positive UA suprapubic pain and discomfort concerning for cystitis. On today's evaluation that is 04/30/2024,the patient denies any fever or any chills, patient is breathing comfortably on room air, the patient denies chest pain has been complaining of some shortness of breath she did have a cough not bringing up any sputum no nausea vomiting no abdominal pain no diarrhea. Patient white count is 5.8, creatinine is down to 1.1 2 repeat urine is also Pseudomonas aeruginosa resistant to Cipro and aztreonam Objective - Vital Signs Vital signs: Vital Signs Temp 98.4 F 04/30/24 11:27 Pulse 68 04/30/24 11:27 Resp 18 04/30/24 11:27 BP 142/66 04/30/24 11:27 Pulse Ox 98 04/30/24 11:27 FiO2 Intake & Output 04/29/24 04/30/24 04/30/24 18:59 06:59 18:59 Intake Total 660 290 10 Output Total 1100 300 550 Balance -440 -10 -540 Weight 92.5 kg Intake: IV 10 10 Invasive Line 6 10 10 Oral 660 280 Output: Urine 900 300 350 Stool 200 200 Other: Voiding Method Indwelling Catheter Indwelling Catheter Indwelling Catheter - Exam GENERAL DESCRIPTION: An elderly female lying in bed in no distress RESPIRATORY SYSTEM: Unlabored breathing , decreased breath sounds at bases HEART: S1 S2 regular rate and rhythm , ABDOMEN: Soft , no tenderness, EXTREMITIES: Bilateral heel wounds currently dressed - Labs CBC & Chem 7: 04/30/24 07:10 04/30/24 07:10 Labs: Abnormal Lab Results - Last 24 Hours (Table) 04/29/24 04/29/24 04/30/24 Range/Units 16:14 20:27 06:09 RBC (3.80-5.40) m/uL Hgb (11.4-16.0) gm/dL Hct (34.0-46.0) % MCHC (31.0-37.0) g/dL RDW (11.5-15.5) % Chloride (98-107) mmol/L BUN (7-17) mg/dL Creatinine (0.52-1.04) mg/dL POC Glucose (mg/dL) 145 H 166 H 123 H (70-110) mg/dL Calcium (8.4-10.2) mg/dL Magnesium (1.6-2.3) mg/dL Total Bilirubin (0.2-1.3) mg/dL Total Protein (6.3-8.2) g/dL Albumin (3.5-5.0) g/dL 04/30/24 04/30/24 04/30/24 Range/Units 07:10 07:10 11:32 RBC 3.54 L (3.80-5.40) m/uL Hgb 9.3 L (11.4-16.0) gm/dL Hct 32.6 L (34.0-46.0) % MCHC 28.5 L (31.0-37.0) g/dL RDW 18.8 H (11.5-15.5) % Chloride 108 H (98-107) mmol/L BUN 65 H (7-17) mg/dL Creatinine 1.12 H (0.52-1.04) mg/dL POC Glucose (mg/dL) 132 H (70-110) mg/dL Calcium 8.1 L (8.4-10.2) mg/dL Magnesium 2.4 H (1.6-2.3) mg/dL Total Bilirubin 0.1 L (0.2-1.3) mg/dL Total Protein 5.3 L (6.3-8.2) g/dL Albumin 2.5 L (3.5-5.0) g/dL Assessment and Plan (1) Catheter-associated urinary tract infection Current Visit: Yes Status: Acute Code(s): T83.511A - I/I REACT D/T INDWELL ING URETHRAL CATHETER, INIT; N39.0 - URINARY TRACT INFECTION, SITE NOT SPECIFIED SNOMED Code(s): 208101073 (2) Allergy to multiple antibiotics Current Visit: No Status: Acute Code(s): Z88.1 - ALLERGY STATUS TO OTHER ANTIBIOTIC AGENTS SNOMED Code(s): 434855587 (3) Stage III pressure ulcer of sacral region Current Visit: Yes Status: Acute Code(s): L89.153 - PRESSURE ULCER OF SACRAL REGION, STAGE 3 SNOMED Code(s): 87368212499742 Plan: 1patient presented to hospital with shortness of breath and this patient noticed to have worsening of her kidney function elevated potassium could be related to Bactrim DS the patient was taking outpatient setting for the UTI, patient did have positive UA suprapubic discomfort a complaint of catheter associated tract infection not entirely excluded. 2patient with multiple antibiotic ALLERGIES that would limit the number of antibiotic safe to use 3patient urine culture has been finalized with the Pseudomonas aeruginosa that is sensitive to cefepime but resistant to aztreonam, patient is currently being treated with meropenem 4patient also have a stage III sacral ulcer with a culture growing Pseudomonas aeruginosa and as well as MRSA CT of the sacrum did not show any features of osteomyelitis, and will treat as a wound infection with a 2-week course of IV daptomycin and meropenem on discharge, prescription provided to the case manage, case discussed with admitting physician Dictation was produced using [employer] dictation software. please excuse any grammatical, word or spelling errors. Time with Patient: Less than 30
--- NOTE | 2024-04-30 14:07 | P.DS ---
Providers Date of admission: 04/21/24 14:40 Expected date of discharge: 04/30/24 Attending physician: Kyle Acosta MD Consults: 04/21/24 11:36 Consult Physician Routine Consulting Provider: Roger Mckeon Consult Reason/Comments: Hyperkalemia Do you want consulting provider notified?: Yes 04/21/24 16:47 Consult Physician Routine Consulting Provider: Stefanie Ferreira Consult Reason/Comments: Pleural effusion Do you want consulting provider notified?: Yes 04/22/24 09:27 Consult Physician Routine Consulting Provider: Zaida Rivera Consult Reason/Comments: UTI Do you want consulting provider notified?: Yes 04/25/24 16:18 Consult Physician Urgent Consulting Provider: Ellen Mckinney Consult Reason/Comments: sacral ulcer, abnormal CT Sacrum Do you want consulting provider notified?: Yes Primary care physician: [facility] Course: Discharge diagnoses; Acute on chronic diastolic CHF Stage III right gluteal pressure ulcer Hyperkalemia Acute kidney injury Left pleural effusion UTI Hypertension Diabetes mellitus History of hyperlipidemia History of bowel resection and ostomy History of left femur fracture, currently bedridden since October, Chronic bilateral lower extremity swelling and wounds History of DVT, anticoagulated on [facility] course; 84-year-old female multiple comorbidities presents to the emergency department with dyspnea upon waking. Patient has multiple comorbidities. States that she feels short of breath. She is a poor historian. She denies any pain. Denies any fever, chills or night sweats. She does report a cough. Patient arrives from home. Patient is sleepy and not able to provide much history; family is not available at bedside Blood work reveals WBC of 9.2, hemoglobin of 11, platelet count of 312, sodium 137, potassium 6.7, BUNs/creatinine of 61/2.46, magnesium elevated at 2.7, BNP of 7660, lactic acid of 1.8, troponin less than 0.012, influenza, RSV and COVID- 19 PCR is negative. UA is positive for leukocyte esterase, WBCs and bacteria EKG strangely shows no P waves and is bradycardic. Laboratory evaluation obtained. CBC and coag panel is negative. Metabolic panel shows potassium 6.7 that elevated renal function. Urinalysis shows greater than 182 white blood cells. Viral testing negative. Chest x-ray shows heart failure. Patient well- appearing from respiratory standpoint. Patient given hyperkalemia cocktail. 04/22. Patient seen and examined. Blood work done this morning showed WBC 8.3, hemoglobin 9.6, sodium 135, potassium 5.6, BUN 65, creatinine 2.51. Denies any shortness of breath. 04/23. Patient seen and examined. Blood work done this morning showed WBC 7.3, hemoglobin 9.4, platelet count 232, sodium 137, potassium 5.1, BUN 57, creatinine 2.10. 2D echo done showed LVH with hyperdynamic systolic function with systolic function of 65%, moderate pulmonary hypertension. States she feels much better. 04/24. Patient seen and examined. Complaining of cough. Denies any shortness of breath at rest. 04/25. Patient seen and examined. Patient overnight developed reaction to aztreonam. 04/26. Patient seen and examined. CT sacrum done showed superficial decubitus ulcer right paramedian posterior tissues overlying the coccyx, no evidence of any abscess or osteomyelitis. Showed 2 cm long needlelike foreign bodies in the rectum, could be related to previous surgery. Patient sitting upright in the bed 04/27. Patient seen and examined no acute issues overnight. Vital signs stable. Currently on IV daptomycin and meropenem. ID planning IV antibiotics at discharge. Patient pulled out her PICC line last night 04/28. Patient seen and examined. States she is doing better. Denies any body aches or lethargy or weakness. 04/29. Patient seen and examined. Currently waiting on PICC line placement, case management board, working on outpatient IV antibiotics set up 04/30. Patient seen and examined. PICC line placed, being discharged on IV antibiotics. Outpatient follow-up with ID and PCP PHYSICAL EXAMINATION: GENERAL: The patient is alert and oriented x3, not in any acute distress. Well developed, well nourished. HEENT: Pupils are round and equally reacting to light. EOMI. No scleral icterus. No conjunctival pallor. Normocephalic, atraumatic. No pharyngeal erythema. No thyromegaly. CARDIOVASCULAR: S1 and S2 present. No murmurs, rubs, or gallops. PULMONARY: Chest is clear to auscultation, no wheezing or crackles. ABDOMEN: Soft, nontender, nondistended, normoactive bowel sounds. Ostomy noted MUSCULOSKELETAL: No joint swelling or deformity. EXTREMITIES: Chronic lower extremity venous stasis changes and scaly pigmentation NEUROLOGICAL: Gross neurological examination did not reveal any focal deficits. SKIN: Right gluteal pressure ulcer Dictation was produced using [employer] dictation software. please excuse any grammatical, word or spelling errors. Patient Condition at Discharge: Good Plan - Discharge Summary Discharge Rx Participant: Yes New Discharge Prescriptions: New Meropenem [Merrem] 1 gm IVPB Q8H #42 each Metoprolol Succinate (ER) [Toprol XL] 12.5 mg PO DAILY #30 tab DAPTOmycin 350 mg IV DAILY #14 each Continue Gabapentin [Neurontin] 100 mg PO TID #9 cap HYDROcodone/APAP 10-325MG [[place] 10-325] 1 tab PO Q4HR PRN #18 tab PRN Reason: Pain Omeprazole [PriLOSEC] 20 mg PO DAILY Midodrine [ProAmatine] 5 mg PO TID Diclofenac Sodium Gel [Voltaren 1% Gel] 1 applic TOPICAL BID Lidocaine 4% [place] 1 - 2 spray TOPICAL BID PRN PRN Reason: Pain Ferrous Sulfate [Iron (65 MG Elemental)] 325 mg PO DAILY Buprenorphine [Butrans 7.5 MCG/HR] 1 patch TRANSDERM Q7D Apixaban [Eliquis] 5 mg PO BID amLODIPine [Norvasc] 5 mg PO DAILY Glimepiride [Amaryl] 1 mg PO DAILY Famotidine [Pepcid] 20 mg PO DAILY Miconazole Nitrate [Miconazole Nitrate 2%] 1 applic TOPICAL BID Nystatin 100,000 Unit/gm Powd [Mycostatin Powder] 1 applic TOPICAL BID Collagenase [Santyl Ointment] 1 applic TOPICAL DAILY Ascorbic Acid [Vitamin C] 500 mg PO BID EPINEPHrine (Auto Inject) [Epipen] 0.3 mg IM ONCE PRN PRN Reason: Anaphylaxis Discontinued hydrALAZINE HCL [Apresoline] 25 mg PO TID Sulfamethox-Tmp 800-160Mg [Bactrim DS 800-160 mg] 1 tab PO Q12HR Torsemide [Demadex] 20 mg PO BID Discharge Medication List Apixaban [Eliquis] 5 mg PO BID 04/17/23 [History] Famotidine [Pepcid] 20 mg PO DAILY 10/30/23 [History] Glimepiride [Amaryl] 1 mg PO DAILY 10/30/23 [History] amLODIPine [Norvasc] 5 mg PO DAILY 10/30/23 [History] Gabapentin [Neurontin] 100 mg PO TID #9 cap 11/08/23 [Rx] HYDROcodone/APAP 10-325MG [[place] 10-325] 1 tab PO Q4HR PRN #18 tab 11/08/23 [Rx] Ascorbic Acid [Vitamin C] 500 mg PO BID 04/21/24 [History] Buprenorphine [[place]rans 7.5 MCG/HR] 1 patch TRANSDERM Q7D 04/21/24 [History] Collagenase [Santyl Ointment] 1 applic TOPICAL DAILY 04/21/24 [History] Diclofenac Sodium Gel [Voltaren 1% Gel] 1 applic TOPICAL BID 04/21/24 [History] EPINEPHrine (Auto Inject) [Epipen] 0.3 mg IM ONCE PRN 04/21/24 [History] Ferrous Sulfate [Iron (65 MG Elemental)] 325 mg PO DAILY 04/21/24 [History] Lidocaine 4% [place] 1 - 2 spray TOPICAL BID PRN 04/21/24 [History] Miconazole Nitrate [Miconazole Nitrate 2%] 1 applic TOPICAL BID 04/21/24 [History] Midodrine [ProAmatine] 5 mg PO TID 04/21/24 [History] Nystatin 100,000 Unit/gm Powd [Mycostatin Powder] 1 applic TOPICAL BID 04/21/24 [History] Omeprazole [PriLOSEC] 20 mg PO DAILY 04/21/24 [History] DAPTOmycin 350 mg IV DAILY #14 each 04/30/24 [Rx] Meropenem [Merrem] 1 gm IVPB Q8H #42 each 04/30/24 [Rx] Metoprolol Succinate (ER) [Toprol XL] 12.5 mg PO DAILY #30 tab 04/30/24 [Rx] Follow up Appointment(s)/Referral(s): Alexx Olmstead MD [Primary Care Provider] - 1-2 days Saurav Patino DO [Medical Doctor] - 1 Week [facility], [REFERRING] - 1 Week [facility] [NON-STAFF] - 1 Week [facility] [NON-STAFF] - As Needed (any question splease call meron Rn for home iv infusion ) Discharge Disposition: HOME WITH HOME HEALTH SERVICES
--- NOTE | 2024-04-30 14:13 | P.PN ---
Subjective Progress Note Date: 04/30/24 Patient is an 84-year-old female with past medical history significant for multiple medical comorbidities including hypertension, diabetes mellitus, chronic kidney disease, colon cancer with previous bowel resection and ostomy, femur fracture leaving her bedridden, chronic bilateral lower extremity wounds, DVT anticoagulated on Eliquis. Also, recently treated by her PCP, on an outpatient basis for UTI with Bactrim. Patient is currently in the emergency department room 9, she states that over the last 2 to 3 months she has been progressively more short of breath. She may have history of CHF. States that her lower extremities are chronically swollen. She does take Tosemide at home. Denies missing doses. Chest x-ray showing stable cardiac silhouette, pulmonary vascular congestion, and small to moderate left-sided pleural effusion with adjacent atelectasis and/or consolidation. Patient denies any infectious symptoms. She does have an occasional nonproductive cough. No fevers, chills, sputum production, chest pain. CBC: WBC count 9, hemoglobin 11, hematocrit 38.5, platelets 312. CMP: Sodium 137, potassium 6.9, chloride 98, serum bicarb 25, BUN 61, creatinine 2.46, glucose 138. Lactic 1.8. LFTs unremarkable. Troponin less than 0.012. NT proBNP 7660. Ultrasound of kidneys/renal/bladder showing bilateral chronic renal disease. No hydronephrosis. Overall limited exam. Urinalysis showing few bacteria and large leukocyte esterase. She has a chronic indwelling urinary catheter. Reportedly, last changed Monday. Kidney function is worse than baseline. Reportedly undergoing current treatment for UTI outpatient with Bactrim. Was started on Rocephin in the emergency de partment. Hyperkalemia has been treated with the hyperkalemia cocktail. Also, receiving doses of Lokelma. Most recent potassium down to 5.8. EKG: Appears junctional rhythm with a rate of 56 bpm. No acute ischemic changes. No hyperacute T waves or QRS widening. QT/QTc 398/391. Patient is currently resting comfortably in the stretcher. She is on 2 L nasal cannula. SpO2 is reading 100%. She does not ambulate and has been bedbound since October. Does not appear dyspneic at rest. Normal saline infusing at 75 mL/h. Hemodynamics appear stable. Progress note dated April 23, 2024. 84-year-old female admitted with a diagnosis of congestive heart failure, urinary tract infection. She is seen today in room 366. He is currently on 2 L of oxygen by nasal cannula. She is not receiving any IV fluids. She continues on IV Rocephin. Current laboratory data includes a white count 7.3, hemoglobin 9.4, hematocrit 31.4, and a normal platelet count. Sodium 137, potassium 5.1, chlorides 100, CO2 28, BUN 57, creatinine 2.10. Glucose is 252. Calcium is 8. Albumin is 3.0. Urine is revealing evidence of gram-negative bacilli. It is yet to be identified. Progress note dated April 24, 2024. 84-year-old female who was admitted with a diagnosis of congestive heart failure, urinary tract infection, and lower extremity wounds. The patient's urine tested positive for Pseudomonas. She currently is on Rocephin. She is being followed by infectious diseases. White count is 5.9, hemoglobin 9.5, hematocrit 33.4, platelet count 240,000. Sodium 138, potassium 4.9, chlorides 103, CO2 31, BUN 54, and creatinine 1.93. Calcium is 8. Albumin is 2.9. Progress note dated April 25, 2024. 84-year-old female admitted with a diagnosis of CHF. The patient is seen today in room 366. She is not receiving any IV fluids. She continues on nasal cannula 2 L. She appears in no acute distress. Current labs include a sodium 137, potassium 5.3, chlorides 101, CO2 33, BUN 64, and creatinine 1.75. Glucose is 96. Calcium is 8.1. Urine culture was positive for Pseudomonas aeruginosa. Wound culture on the buttock was positive for gram-negative bacilli and Pseudomonas. The patient is currently not on an antibiotic. ID should be consulted. Progress note dated April 26, 2024. 84-year-old female admitted with a diagnosis of infection, and congestive heart failure, is seen again in room 366. She is not receiving any IV fluids. She continues on nasal O2 at 2 L. The patient is resting comfortably in bed, without complaint. Current labs include a white count of 6.1, hemoglobin 10.2, hematocrit 35.2, and a platelet count of 223,000. Sodium 137, potassium 5.1, ch lorides 104, CO2 28, BUN 69, and creatinine 1.61. Glucose is 117. Albumin is 3.3. Urine cultures are positive for Pseudomonas aeruginosa. Wound cultures of the buttock, were positive for presumptive MRSA, Proteus mirabilis, and Pseudomonas aeruginosa. The patient is currently on daptomycin and meropenem. Progress note dated April 27, 2024. 84-year-old female admitted with a diagnosis of CHF. She seen again in room 366. She continues on oxygen by nasal cannula 2 L. She is currently on daptomycin, and meropenem. Urine cultures were positive for Pseudomonas aeruginosa. Cultures of the buttock, were positive for presumptive MRSA, Proteus mirabilis, Pseudomonas aeruginosa. Clinically she is doing about the same. She is not receiving any IV fluids. Glucose 91 today. Progress note dated April 28, 2024. 84-year-old female admitted with a diagnosis of CHF. She is again seen today in room 366. Currently she is on 2 L. Saturations are 98%. She is receiving a ntibiotics in the form of daptomycin and meropenem, for urine cultures that were positive for Pseudomonas, and buttock cultures which were positive for presumptive MRSA, Proteus mirabilis, and Pseudomonas. Current labs include white count 5, hemoglobin 9.4, hematocrit 32, platelet count 193,000. Sodium 138, potassium 4.9, chlorides 107, CO2 27, BUN 69, creatinine 1.28. Calcium is 8.1. Albumin is 2.7. 04/29/2024, patient is being seen for a follow-up. The patient is resting comfortably in bed and the patient is on 2 L of oxygen by nasal cannula with a pulse ox of 99%. No significant respiratory distress. No chest pain. No cough or sputum production. No chest tightness or wheezing. The patient is awaiting a PICC line to be placed for outpatient antibiotic treatment. She has been t reated for an acute on top of chronic diastolic heart failure and the patient has a stage III right gluteus pressure ulcer. Her urine culture is positive for Pseudomonas aeruginosa and she was also wound culture that showing a combination of Pseudomonas, Proteus and MRSA. The patient remains on the same antibiotic coverage including combination of daptomycin and IV meropenem. ID is on the case. In terms of labs, the white cell count of 4.9 with a hemoglobin 8.7 and a platelet count of 176. BUN of 69 with a creatinine of 1.28. Sodium levels at 138 with a potassium level of 4.8. On 04/30/2024, I am seeing the patient for a follow-up. The patient is stable without any new complaints. The patient remains on oxygen at 2 L and the patient has been further weaned down to room air oxygen. No significant respiratory distress. The patient remains on a combination of IV Merrem and daptomycin that was given to her per IDs recommendation regarding ongoing UTI and wound infection. PICC line has been inserted. Labs from today shows a white cell count of 5.9 with hemoglobin 9.3 and a platelet count of 164. BUN is 65 with a creatinine of 1.1 and a sodium levels at 137. LFTs are essentially within normal limits. Previous micro blood cultures from the urine and the wound has been noted. The patient remains hemodynamically stable. Tolerating diet. No reported aspiration. Objective - Vital Signs Vital signs: Vital Signs Temp 97.5 F L 04/30/24 08:18 Pulse 67 04/30/24 08:18 Resp 18 04/30/24 08:18 BP 125/91 04/30/24 08:18 Pulse Ox 99 04/30/24 08:18 FiO2 Intake & Output 04/29/24 04/30/24 04/30/24 18:59 06:59 18:59 Intake Total 660 290 Output Total 1100 300 Balance -440 -10 Weight 92.5 kg Intake: IV 10 Invasive Line 6 10 Oral 660 280 Output: Urine 900 300 Stool 200 Other: Voiding Method Indwelling Catheter Indwelling Catheter - Exam No acute distress, oriented 3. Currently on 2 L nasal cannula. HEENT examination is grossly unremarkable. Mucous membranes are moist. No oral lesions. Neck supple. Full range of motion. No adenopathy thyromegaly or neck vein distention. Cardiovascular examination reveals regular rhythm rate. S1-S2 normal. No S3 or S4. No discernible murmur noted. Heart sounds are distant. Lungs reveal diminished breath sounds. Few crackles. No rhonchi. No wheezes. Abdomen soft bowel sounds are heard. No masses or tenderness. Colostomy noted. Extremities are wrapped. Skin is without rash or lesion. Neurologic examination is brief but nonfocal. - Labs CBC & Chem 7: 04/30/24 07:10 04/30/24 07:10 Labs: Abnormal Lab Results - Last 24 Hours (Table) 04/29/24 04/29/24 04/29/24 Range/Units 11:43 16:14 20:27 RBC (3.80-5.40) m/uL Hgb (11.4-16.0) gm/dL Hct (34.0-46.0) % MCHC (31.0-37.0) g/dL RDW (11.5-15.5) % Chloride (98-107) mmol/L BUN (7-17) mg/dL Creatinine (0.52-1.04) mg/dL POC Glucose (mg/dL) 130 H 145 H 166 H (70-110) mg/dL Calcium (8.4-10.2) mg/dL Magnesium (1.6-2.3) mg/dL Total Bilirubin (0.2-1.3) mg/dL Total Protein (6.3-8.2) g/dL Albumin (3.5-5.0) g/dL 04/30/24 04/30/24 04/30/24 Range/Units 06:09 07:10 07:10 RBC 3.54 L (3.80-5.40) m/uL Hgb 9.3 L (11.4-16.0) gm/dL Hct 32.6 L (34.0-46.0) % MCHC 28.5 L (31.0-37.0) g/dL RDW 18.8 H (11.5-15.5) % Chloride 108 H (98-107) mmol/L BUN 65 H (7-17) mg/dL Creatinine 1.12 H (0.52-1.04) mg/dL POC Glucose (mg/dL) 123 H (70-110) mg/dL Calcium 8.1 L (8.4-10.2) mg/dL Magnesium 2.4 H (1.6-2.3) mg/dL Total Bilirubin 0.1 L (0.2-1.3) mg/dL Total Protein 5.3 L (6.3-8.2) g/dL Albumin 2.5 L (3.5-5.0) g/dL Assessment and Plan Plan: acute exacerbation of diastolic CHF, stable, improved and the patient is currently on room air oxygen Small to moderate left-sided pleural effusion, stable currently on room air oxygen. Ultrasound of the chest showed a 5.9 cm pocket in the left consistent with pleural effusion. The patient has not required thoracentesis measures condition has remained stable while being optimized for CHF. Acute dyspnea, secondary to above, Stable Acute on chronic kidney injury, improving and the patient's creatinine is down trending Urinary tract infection secondary to Pseudomonas aeruginosa. Buttock wound culture positive for Pseudomonas aeruginosa, Proteus mirabilis, and presumptive MRSA. Severe hyperkalemia, resolved. Chronic indwelling urinary catheter. Diabetes mellitus, type II. History of hypertension. History of hyperlipidemia. History of bowel resection and ostomy. History of left femur fracture, currently bedridden since October,. Chronic bilateral lower extremity swelling and wounds. History of DVT. Plan: The patient respiratory status is stable. No need for thoracentesis. PICC line to be inserted today The patient continues on antibiotics in the form of daptomycin and meropenem. PICC line has been inserted and the patient is looking for outpatient antibiotic treatment. Anticoagulation with Eliquis. She remains a full code. CODE STATUS needs to be addressed by the primary shaista márquez.
[2024-04-30 15:30] VITALS: PULSE 58; RESP 16; TEMP 97.3
[2024-04-30 16:53] LABS: Glucose,Whole Blood 118 mg/dL (70-110)
[2024-04-30 18:17] VITALS: BP 118/62
== END 2024-04-30 18:35 | disposition home health service (06) | DRG 698 ==
LOC: EC 09:05 → 3SCARD 14:40 → UNDODISIN 04-26 13:48
PROVIDERS: ADMIT Internal Medicine; ATTEND Internal Medicine
PROC: 05H933Z Insertion of Infusion Device into Right Brachial Vein, Percutaneous Approach (ICD-10-PCS; 2024-04-26)
PROC: 02HV33Z Insertion of Infusion Device into Superior Vena Cava, Percutaneous Approach (ICD-10-PCS; principal; 2024-04-26 14:05)
DX: T83.518A Infection and inflammatory reaction due to other urinary catheter, initial encounter (principal); I50.33 Acute on chronic diastolic (congestive) heart failure; L89.153 Pressure ulcer of sacral region, stage 3; L89.313 Pressure ulcer of right buttock, stage 3; N17.0 Acute kidney failure with tubular necrosis; I13.0 Hypertensive heart and chronic kidney disease with heart failure and stage 1 through stage 4 chronic kidney disease, or unspecified chronic kidney disease; N39.0 Urinary tract infection, site not specified; Z16.23 Resistance to quinolones and fluoroquinolones; E87.29 Other acidosis; I27.20 Pulmonary hypertension, unspecified; D63.1 Anemia in chronic kidney disease; L89.622 Pressure ulcer of left heel, stage 2; L97.509 Non-pressure chronic ulcer of other part of unspecified foot with unspecified severity; I95.9 Hypotension, unspecified; N18.32 Chronic kidney disease, stage 3b; E11.22 Type 2 diabetes mellitus with diabetic chronic kidney disease; E11.621 Type 2 diabetes mellitus with foot ulcer; E11.622 Type 2 diabetes mellitus with other skin ulcer; T18.5XXA Foreign body in anus and rectum, initial encounter; W44.9XXA Unspecified foreign body entering into or through a natural orifice, initial encounter; Y84.6 Urinary catheterization as the cause of abnormal reaction of the patient, or of later complication, without mention of misadventure at the time of the procedure; S72.92XS Unspecified fracture of left femur, sequela; Z74.01 Bed confinement status; E87.5 Hyperkalemia; E86.9 Volume depletion, unspecified; B96.5 Pseudomonas (aeruginosa) (mallei) (pseudomallei) as the cause of diseases classified elsewhere; T36.8X5A Adverse effect of other systemic antibiotics, initial encounter; K44.9 Diaphragmatic hernia without obstruction or gangrene; E78.5 Hyperlipidemia, unspecified; Z79.01 Long term (current) use of anticoagulants; Z79.84 Long term (current) use of oral hypoglycemic drugs; Z79.899 Other long term (current) drug therapy; Z85.038 Personal history of other malignant neoplasm of large intestine; Z86.718 Personal history of other venous thrombosis and embolism; Z87.891 Personal history of nicotine dependence; Z88.1 Allergy status to other antibiotic agents; Z90.49 Acquired absence of other specified parts of digestive tract; Z93.3 Colostomy status; Z86.14 Personal history of Methicillin resistant Staphylococcus aureus infection; Z88.0 Allergy status to penicillin; Z91.014 Allergy to mammalian meats; Z11.52 Encounter for screening for COVID-19
CPT/HCPCS: 36415; 36573; 71046; 72192; 76604; 76770; 80048; 80053; 81001; 82272; 82803; 83605; 83735; 83880; 84132; 84484; 85025; 85610; 85652; 85730; 86140; 87040; 87070; 87075; 87077; 87086; 87186; 87205; 87636; 93005; 93306; 94640; 94760; 96374; 96375; 96376; 99291